=== PATIENT | female | born 1975 | race African-American/Black ===

== ENCOUNTER 2023-02-20 14:04 | Emergency (ER) | payer OTHER, SELFPAY ==
--- NOTE | ~2023-02-20 | XR_ITS ---
EXAMINATION: Right foot and chest x-ray CLINICAL INFORMATION: Right foot pain. Wheezing. COMPARISON: None. TECHNIQUE: 3 views of the right foot. One view of the chest. FINDINGS: Right foot: There are postoperative changes following amputation of the first second and third toes. There is periosteal reaction along the remaining proximal phalanx of the second toe. There is irregularity of the surgical margin of the proximal phalanx of the first and second toes. No fracture or dislocation. Arthritis at the first MTP joint and midfoot. Soft tissue arterial calcification. No abnormal air collection or soft tissue foreign body. Plantar calcaneal spurs. CHEST: The cardiac silhouette is slightly enlarged. Hilar and mediastinal contours are unremarkable. The lungs are clear. No pleural effusion or pneumothorax. Degenerative changes of the spine. XR/XR chest 1V IMPRESSION: Right foot: Postsurgical changes to the first second and third toes. Periosteal reaction of the proximal phalanx of the second toe. Indistinct surgical margins of the proximal phalanx of the first and second toes. It is difficult to exclude osteomyelitis. CHEST: Slightly enlarged cardiac silhouette.
--- NOTE | ~2023-02-20 | XR_ITS ---
EXAMINATION: Right foot and chest x-ray CLINICAL INFORMATION: Right foot pain. Wheezing. COMPARISON: None. TECHNIQUE: 3 views of the right foot. One view of the chest. FINDINGS: Right foot: There are postoperative changes following amputation of the first second and third toes. There is periosteal reaction along the remaining proximal phalanx of the second toe. There is irregularity of the surgical margin of the proximal phalanx of the first and second toes. No fracture or dislocation. Arthritis at the first MTP joint and midfoot. Soft tissue arterial calcification. No abnormal air collection or soft tissue foreign body. Plantar calcaneal spurs. CHEST: The cardiac silhouette is slightly enlarged. Hilar and mediastinal contours are unremarkable. The lungs are clear. No pleural effusion or pneumothorax. Degenerative changes of the spine. XR/XR foot RT min 3V IMPRESSION: Right foot: Postsurgical changes to the first second and third toes. Periosteal reaction of the proximal phalanx of the second toe. Indistinct surgical margins of the proximal phalanx of the first and second toes. It is difficult to exclude osteomyelitis. CHEST: Slightly enlarged cardiac silhouette.
[2023-02-20 14:14] VITALS: BP 152/81; PULSE 78; RESP 16; TEMP 37.1; O2SAT 99; BMI 42.4
--- NOTE | 2023-02-20 14:16 | ED_ITS ---
HPI - General Adult General Chief complaint: General Medical Stated complaint: B/L Foot Pain No Injury Time Seen by Provider: 02/20/23 17:37 Related Data Previous Rx's ?Medication ?Instructions ?Recorded oxycodone 5 mg tablet 5 mg PO Q8H PRN pain #7 tabs 02/20/23 Allergies Allergy/AdvReac Type Severity Reaction Status Date / Time ibuprofen [From MOTRIN] Allergy Unknown STOMACH Unverified 07/22/20 19:12 UPSET morphine [MORPHINE] Allergy Unknown ITCHING Unverified 07/22/20 19:12 tramadol [TRAMADOL] Allergy Unknown HIVES, Unverified 07/22/20 19:12 PMF Social History Social History Advance Directives: No Advance Directives Information Provided: No Physical Exam ED Vital Signs: BMI result Body Mass Index 42.4 Course Course Course Narrative: This is an RME: Additional HPI, ROS, PE not included below will be deferred to primary provider. 47-year-old female presents with right foot pain, patient is status post amputation about a year ago at of [facility]. Complaining that he is also having wheezing worse than usual, she does have inhalers at home which do not seem to be helping. Denies fevers, chills, nausea, vomiting, chest pain, shortness of breath. Physical exam saturating 97% on room air, breathing unlabored patient comfortable appearing. Will order x-ray of right lower extremity peer Medications Administered Discontinued Medications Generic Name Dose Route Start Last Admin Trade Name Freq PRN Reason Stop Dose Admin Oxycodone HCl 5 mg 02/20/23 17:50 02/20/23 18:00 Oxycodone Hcl Immed Release 5 Mg Tablet PO 02/20/23 17:51 5 mg ONCE ONE Administration Medical Decision Making Lab Data 02/20/23 15:07 02/20/23 15:07 Labs: Lab Results 02/20/23 Range/Units 15:07 WBC 11.5 H (4.8-10.8) X10*3/uL RBC 3.83 L (4.20-5.50) X10*6/uL Hgb 11.6 L (12.0-16.0) g/dl Hct 35.9 L (37.0-47.0) % MCV 93.7 (80.0-98.0) fL MCH 30.3 (27.0-33.0) pg MCHC 32.3 (31.0-35.0) g/dl RDW 14.1 (11.0-16.0) % Plt Count 404 H (160-400) X10*3/uL MPV 9.6 (9.4-12.3) fL Immature Gran % (Auto) 0.5 H (0.0-0.4) % Neut % (Auto) 88.3 H (45-73) % Lymph % (Auto) 9.0 L (20-40) % Becker % (Auto) 1.9 L (2-11) % Eos % (Auto) 0.1 (0-4) % Baso % (Auto) 0.2 (0-2) % Lymph # (Auto) 1.0 L (1.2-4.9) X10*3/uL Becker # (Auto) 0.2 (0.1-1.2) X10*3/uL Eos # (Auto) 0.0 (0.0-0.4) X10*3/uL Baso # (Auto) 0.0 (0.0-0.2) X10*3/uL Abs Immat Gran (auto) 0.06 H (0.00-0.03) X10*3/uL Absolute Neuts (auto) 10.2 H (2.0-8.3) x10*3/uL Absolute Nucleated RBC 0.000 (0.0-0.012) X10*3/uL Nucleated RBC % (auto) 0.0 (0.0-0.2) /100WBC Sodium 139 (135-145) mmol/L Potassium 4.5 (3.3-5.1) mmol/L Chloride 106 (96-108) mmol/L Carbon Dioxide 28 (22-29) mmol/L Anion Gap 10 L (12-20) BUN 33 H (9-16) mg/dL Creatinine 1.49 H (0.5-1.4) mg/dL Estim Creat Clear Calc 64.8 Estimated GFR 38 Random Glucose 302 H (60-115) mg/dL Calcium 8.2 L (8.4-10.2) mg/dL Total Bilirubin 0.3 (0.0-1.0) mg/dL AST 35 H (5-31) U/L ALT 46 H (0-31) U/L Alkaline Phosphatase 83 (39-117) U/L Total Protein 6.1 L (6.5-8.0) g/dL Albumin 2.8 L (3.5-5.0) g/dL Discharge Plan Discharge Clinical Impression: Neuropathy Patient Disposition: Home, Self-Care Instructions: Peripheral Neuropathy (ED) Prescriptions: New oxycodone 5 mg tablet 5 mg PO Q8H PRN (Reason: pain) Qty: 7 0RF Rx Instructions: Partial Fill upon patient request. Referrals: Physician,Unknown J [Primary Care Provider] - (Please follow-up with your doctor at [facility].) Interventions: ED Discharge Assessment Last Done: 02/20/23 19:52 Discharge Date/Time: 02/20/23 20:25 Print Language: Marshallese
--- OUTSIDE RECORDS SUMMARY | 2023-02-20 15:10 | XMS_ITS | Continuity of Care Document ---
Author Name Unknown Organization [facility] Address [address] [place] [address]- Care Team Providers Care Appeals Analyst Name Role Phone Sangeetha MOSHER, Marcia Koroma Primary Care Physician [place] [facility] [place] 07/18/[address] [address]- [facility] Attending Physician: Not on Staff, Attending MD Allergies, Adverse Reactions, Alerts Substance Reaction Severity Status ibuprofen ABD PAIN Active morphine Vomiting and itchy Active traMADol Itchy, Hives Active Immunizations Given and Recorded Vaccine Date Status Refusal Reason tetanus-diphtheria toxoids (Td) 09/03/19 Given influenza virus vaccine, inactivated 1 08/15/11 Gi jean-paul influenza virus vaccine, inactivated 2 10/21/09 Gi jean-paul influenza virus vaccine, inactivated 09/16/08 Give n Tet/Diphth/Acel, Pertussis (oldterm) 3 10/14/08 Gi jean-paul Pneumococcal Vaccine (oldterm) 09/16/08 Given Not Given Vaccine Date Status Refusal Reason pneumococcal 23-valent vaccine 05/31/19 Not Given Patient Refuses 1Admin Note: VIS GIVEN-DATED 05/30/11 2Result Comment: LOT [id number] EXP 04 MAY 2010 3Admin Note: VIS given Medications albuterol 90 mcg/inh inhalation powder 2 puffs, Inhalation, Every 6 hours, PRN as needed, # 1 each, 3 Refills, Maintenance, 09/05/19 10:48:00 EDT, Powder, 2 puffs Inhalation Every 6 hours,PRN:as needed Start Date: 09/05/19 Status: Ordered Alcohol Wipes See Instructions, # 1 pack/packet, Refills 5, Tot. Refills 5, Maintenance, Use as directed to checksugars and administer insulin Four times a day. Diagnosis code E11.9, 03/01/20 10:42:00 EDT, Compound, 170, cm, 12/16/19 10:11:00 EST, Height, 100.5, k... Start Date: 03/01/20 Status: Ordered amLODIPine 10 mg oral tablet 10 mg, 1, tablet, By Mouth, Daily, # 90 tablet, Refills 3, Tot. Refills 3, Maintenance, 02/03/20 12:39:00 EDT, Route to Pharmacy Electronically, [facility] #[id number], 170, cm, 12/16/19 10:11:00 EST, Height, 100.5, kg, 05/30/19 9:39:00 EDT, Dry... Start Date: 02/03/20 Stop Date: 01/28/21 Status: Ordered aspirin 81 mg oral delayed release tablet 81 mg, 1, tablet, By Mouth, Daily, # 30 tablet, Refills 11, Tot. Refills 11, Maintenance, 05/20/20 14:45:00 EDT, Route to Pharmacy Electronically, [facility] #[id number], 170, cm, 05/20/20 14:08:00 EDT, Height, 100.5, kg, 05/30/19 9:39:00 EDT, Start Date: 05/20/20 Status: Ordered atorvastatin 10 mg oral tablet 1 tablet = 10 mg, By Mouth, Daily, # 30 tablet, 11 Refills, Maintenance, 05/20/20 14:46:00 EDT, [facility] #[id number], 170, cm, 05/20/20 14:08:00 EDT, Height, 100.5, kg, 05/30/19 9:39:00 EDT, Dry Weight Start Date: 05/20/20 Status: Ordered FREESTYLE LITE BLOOD GLUCSTR 50S See Instructions, # 150 Unknown, Refills 0, Maintenance, USE TO CHECK BLOOD SUGAR FOUR TIMES DAILY AND NEEDED UP TO TOTAL OF FIVE TIMES DAILY, 170, cm, 12/16/19 10:11:00 EST, Height, 100.5, kg, 05/30/19 9:39:00 EDT, Dry Weight Start Date: 12/16/19 Status: Ordered Freestyle Lite Lancets See Instructions, # 150 each, Refills 11, Tot. Refills 11, Maintenance, use to check bs four times daily and prn for uncontrolled DM type II, 03/28/18 13:40:58 EDT, Compound Start Date: 03/28/18 Status: Ordered Freestyle Lite Monitor See Instructions, # 1 each, Maintenance, use to check bs up to five times daily. dx DX E11.65, 12/11/19 10:06:00 EST, Compound, 170, cm, 09/03/19 10:13:00 EDT, Height, 100.5, kg, 05/30/19 9:39:00 EDT, Dry Weight Start Date: 12/11/19 Status: Ordered Freestyle Lite Test Strips See Instructions, # 150 each, Refills 11, Tot. Refills 11, Maintenance, use to check bs four times daily and prn for uncontrolled type 2 dm. e11.65, 5x testing, on insulin, 07/03/20 11:08:00 EDT, Compound, 170, cm, 05/20/20 14:48:00 EDT, Height, 100.... Start Date: 07/03/20 Status: Ordered gabapentin 100 mg oral capsule 100 mg, 1, capsule, By Mouth, 3 times a day, # 90 capsule, Refills 0, Tot. Refills 0, Maintenance, 03/06/19 17:12:53 EDT, Route to Pharmacy Electronically, [id number], [facility] [id number] Start Date: 03/06/19 Status: Ordered Insulin Syringe, BD Ultra-Fine 0.5 cc 31 G x 8 mm (03/20in) See Instructions, # 150 each, Refills 11, Tot. Refills 11, Maintenance, use as directed for Type 2 Diabetes Mellitus to admisiter insulin four times a day. Dx; E11.9, 05/20/20 15:10:00 EDT, pt was transferred to [facility], all meds left beh... Start Date: 05/20/20 Stop Date: 05/15/21 Status: Ordered Lantus 100 u/ml subcutaneous solution = 40 units, Subcutaneous Infusion, 2 times a day, # 15 mL, 11 Refills, Maintenance, 04/28/20 11:50:00 EDT, [facility] #[id number], 170, cm, 04/02/20 13:31:00 EDT, Height, 100.5, kg, 05/30/19 9:39:00 EDT, Dry Weight Start Date: 04/28/20 Stop Date: 04/23/21 Status: Ordered lisinopril 40 mg oral tablet 1 tablet = 40 mg, By Mouth, Daily, # 90 tablet, 4 Refills, Maintenance, 02/03/20 12:39:00 EDT, Tablet, [facility] #[id number], 170, cm, 12/16/19 10:11:00 EST, Height, 100.5, kg, 05/30/19 9:39:00EDT, Dry Weight Start Date: 02/03/20 Stop Date: 04/28/21 Status: Ordered Melatonin 5 mg oral tablet 0 Refills, Maintenance, 01/29/19 10:09:09 EDT Start Date: 01/29/19 Status: Ordered NovoLOG 100 units/mL injectable solution = 20 units, Subcutaneous Infusion, 3 times a day before meals, replaces humalog, # 50 mL, 1 Refills, Maintenance, 02/09/20 16:58:00 EDT, [facility] #[id number], 170, cm, 12/16/19 10:11:00 EST, Height, 100.5, kg, 05/30/19 9:39:00 EDT, Dry Weight Start Date: 02/09/20 Status: Ordered OXcarbazepine 300 mg oral tablet TK 1 T PO BID Start Date: 01/29/19 Status: Ordered PARoxetine 40 mg oral tablet TK 1 T PO HS Start Date: 01/29/19 Status: Ordered Senna 8.6 mg oral tablet 17.2 mg, 2, tablet, By Mouth, Daily, Refills 0, Maintenance, 06/01/19 9:40:46 EDT, Tablet Start Date: 06/01/19 Status: Ordered traZODone 300 mg oral tablet TK 1 T PO HS Start Date: 01/29/19 Status: Ordered triamcinolone 0.1% topical ointment 1 application, Topically, 2 times a day, apply a thin film to affected area, # 60 Gm, 0 Refills, Maintenance, 05/20/20 15:09:00 EDT, Ointment, [facility] #[id number], 1 application Topically 2 times a day,x14 days,Instr:apply a thin film; to aff... Start Date: 05/20/20 Stop Date: 06/03/20 Status: Ordered Trulicity Pen 1.5 mg/0.5 mL subcutaneous solution 0.5 mL = 1.5 mg, Subcutaneous Injection, Every week, # 2.5 mL, 5 Refills, Maintenance, 02/03/20 10:19:00 EDT, Solution, [facility] #[id number], 170, cm, 12/16/19 10:11:00 EST, Height, 100.5, kg,05/30/19 9:39:00 EDT, Dry Weight Start Date: 02/03/20 Status: Ordered Zofran 4 mg oral tablet 1 tablet = 4 mg, By Mouth, Every 8 hours, 0 Refills, Maintenance, 05/30/19 1:22:15 EDT Start Date: 05/30/19 Status: Ordered ZyrTEC 10 mg oral tablet 1 tablet = 10 mg, By Mouth, Daily, # 30 tablet, 0 Refills, Maintenance, 04/17/19 10:42:31 EDT, Tablet Start Date: 04/17/19 Stop Date: 05/17/19 Status: Ordered Problem List Condition Effective Dates Status Health Status Inform ant Abdominal pain(Confirmed) Active Storey's cyst of knee(Confirmed) Active Cholecystectomy(Confirmed) Active Diabetes mellitus(Confirmed) 07/2007 Active Diabetic retinopathy - next due (Confirmed) 2016 Active Dyslipidemia(Confirmed) Active Hypertension(Confirmed) Active Microalbuminuria(Confirmed) Active Morbid obesity(Confirmed) Active Peripheral vascular disease(Confirmed) Active Umbilical hernia(Confirmed) Active 1per 2016 and 2018 [facility] notes Social History Social History Type Response Smoking Status Never (less than 100 in lifetime) entered on: 09/03/19 Sex Female 1per pt
--- OUTSIDE RECORDS SUMMARY | 2023-02-20 15:10 | XMS_ITS | Continuity of Care Document ---
Author Name Unknown Organization [facility] Address [address] [place] [address]- Care Team Providers Care Ammonia Refrigeration Worker Name Role Phone Olivier MOSHER, Allegra Primary Care Physician Encounter [facility] [place] Date(s): 01/11/23 - 02/10/23 [facility] [address] [place] [address]- Allergies, Adverse Reactions, Alerts Substance Reaction Severity Status ibuprofen ABD PAIN Active morphine Vomiting and itchy Active traMADol Itchy, Hives Active Immunizations Given and Recorded Vaccine Date Status Refusal Reason SARS-CoV-2 mRNA ([id number]) vax 02/22/22 Recorded SARS-CoV-2 (COVID-19) mRNA BNT-162b2 vac 08/11/21 Given SARS-CoV-2 (COVID-19) mRNA BNT-162b2 vac 07/20/21 Given tetanus-diphtheria toxoids (Td) 09/03/19 Given influenza virus vaccine, inactivated 1 08/15/11 Gi jean-paul influenza virus vaccine, inactivated 2 10/21/09 Gi jean-paul influenza virus vaccine, inactivated 09/16/08 Give n Tet/Diphth/Acel, Pertussis (oldterm) 3 10/14/08 Gi jean-paul Pneumococcal Vaccine (oldterm) 09/16/08 Given Not Given Vaccine Date Status Refusal Reason pneumococcal 23-valent vaccine 05/31/19 Not Given Patient Refuses 1Admin Note: VIS GIVEN-DATED 05/30/11 2Result Comment: LOT [id number] EXP 04 MAY 2010 3Admin Note: VIS given Medications Alcohol Wipes See Instructions, # 100 each, Refills 5, Tot. Refills 5, Maintenance, dx DM, on insulin, 08/14/22 12:21:00 EDT, Supply, 169, cm, 08/09/22 14:26:00 EDT, Height, 105.22, kg, 08/09/22 14:26:00 EDT, Dry Weight Start Date: 08/14/22 Status: Ordered amLODIPine 10 mg oral tablet 10 mg, 1, tablet, By Mouth, Daily, # 90 tablet, Refills 2, Tot. Refills 2, Maintenance, 01/23/23 10:18:00 EDT, Route to Pharmacy Electronically, [facility]/pharmacy #[id number], Partial fill upon patient request if the prescription is for a schedule II opioid drug... Start Date: 01/23/23 Stop Date: 10/20/23 Status: Ordered aspirin 81 mg oral delayed release tablet 81 mg, By Mouth, Daily, # 30 tablet, Refills 2, Tot. Refills 2, Maintenance, 12/25/22 11:05:00 EST,Route to Pharmacy Electronically, [facility] #[id number], Partial fill upon patient request if the prescription is for a schedule II opioid drug., 169, cm,... Start Date: 12/25/22 Stop Date: 03/25/23 Status: Ordered atorvastatin 40 mg oral tablet 1 tablet = 40 mg, By Mouth, Daily, # 90 tablet, 3 Refills, Maintenance, 01/23/23 10:17:00 EDT, Tablet, [facility]/pharmacy #[id number], Partial fill upon patient request if the prescription is for a schedule II opioid drug., 169, cm, 11/28/22 9:17:00 EST, Height,... Start Date: 01/23/23 Status: Ordered carvedilol 25 mg oral tablet 25 mg, 1, tablet, By Mouth, 2 times a day, # 60 tablet, Refills 2, Tot. Refills 2, Maintenance, 01/22/23 16:13:00 EDT, Route to Pharmacy Electronically, [facility] #[id number], Partial fill upon patient request if the prescription is for a schedule II opi... Start Date: 01/22/23 Stop Date: 04/22/23 Status: Ordered D/armando Rx D/armando Rx, See Instructions, # 1 capsule, Refills 0, Tot. Refills 0, Maintenance, Januvia has been discontinued, 09/01/22 10:09:00 EDT, Supply, 169, cm, 08/09/22 14:26:00 EDT, Height, 105.22, kg, 08/09/22 14:26:00 EDT, Dry Weight Start Date: 09/01/22 Status: Ordered Freestyle Lite Test Strips See Instructions, # 120 each, Refills 5, Tot. Refills 5, Maintenance, USE TO TEST 4 TIMES DAILY on insulin QID, DX DM ICD E11.9, 01/23/23 10:19:00 EDT, Supply, 169, cm, 11/28/22 9:17:00 EST, Height, 103.42, kg, 10/09/22 8:39:00 EST, Dry Weight Start Date: 01/23/23 Stop Date: 07/22/23 Status: Ordered furosemide 20 mg oral tablet 20 mg, 1, tablet, By Mouth, Daily, # 30 tablet, Refills 5, Tot. Refills 5, Maintenance, 10/16/22 10:25:00 EST, Route to Pharmacy Electronically, [facility] #[id number], Partial fill upon patientrequest if the prescription is for a schedule II op... Start Date: 10/16/22 Status: Ordered Lantus Solostar Pen 100 units/mL subcutaneous solution See Instructions, Subcutaneous Injection, 30 units sc bid dx E11.9 dose increased 01/23/23, # 15 mL,11 Refills, Maintenance, 01/23/23 9:43:00 EDT, [facility]/pharmacy #[id number], Partial fill upon patient request if the prescription is for a schedule II opioid d... Start Date: 01/23/23 Stop Date: 01/18/24 Status: Ordered lisinopril 10 mg oral tablet 10 mg, 1, tablet, By Mouth, Daily, # 90 tablet, Refills 2, Tot. Refills 2, Maintenance, 01/23/23 10:15:00 EDT, Route to Pharmacy Electronically, [facility]/pharmacy #[id number], Partial fill upon patient request if the prescription is for a schedule II opioid drug... Start Date: 01/23/23 Stop Date: 10/20/23 Status: Ordered NovoLOG FlexPen 100 units/mL injectable solution INJECT 20 UNITS SUBCUTANEOUSLY 3 TIMES A DAY BEFORE MEALS Start Date: 01/23/23 Status: Ordered oxyCODONE 10 mg oral tablet 1 tablet = 10 mg, By Mouth, Every 12 hours, # 30 tablet, 0 Refills, Maintenance, 01/29/23 16:57:00 EDT, [facility]/pharmacy #[id number], Partial fill upon patient request if the prescription is for a schedule II opioid drug., 169, cm, 01/23/23 13:31:00 EDT, Height... Start Date: 01/29/23 Status: Ordered PARoxetine 40 mg oral tablet 40 mg, 1, tablet, By Mouth, Daily, Refills 0, Maintenance, 01/11/22 9:43:00 EST Start Date: 01/11/22 Status: Ordered Pen Odell, 31 G x 5 mm BD Ultra Fine III See Instructions, # 1 each, Refills 5, Tot. Refills 5, Maintenance, use to inject insulin up to four times daily. dx E11.9, 12/04/22 15:49:00 EST, Supply, 169, cm, 11/28/22 9:17:00 EST, Height, 103.42, kg, 10/09/22 8:39:00 EST, Dry Weight Start Date: 12/04/22 Status: Ordered traZODone 300 mg oral tablet 1 tablet = 300 mg, By Mouth, Daily at bedtime Start Date: 03/03/22 Status: Ordered Trulicity Pen 3 mg/0.5 mL subcutaneous solution 0.5 mL = 3 mg, Subcutaneous Injection, Every week, rotate injection sites, # 2 mL, 11 Refills, Maintenance, 01/23/23 9:42:00 EDT, Solution, [id number], Partial fill upon patient request if the prescription is for a schedule II opioid drug., 16... Start Date: 01/23/23 Status: Ordered Ventolin HFA 108 mcg/inh inhalation aerosol with adapter 1 puffs, Inhalation, Every 4 hours, PRN NEEDED FOR WHEEZING, # 18 each, 2 Refills, Maintenance, 01/23/23 10:16:00 EDT, [id number], 169, cm, 11/28/22 9:17:00 EST, Height, 103.42, kg, 10/09/22 8:39:00 EST, Dry Weight Start Date: 01/23/23 Status: Ordered Problem List Condition Confirmation Course Effective Dates Status H ealth Status Informant Abdominal pain Confirmed Active Amputation of toe Confirmed Active Storey's cyst of knee Confirmed Active Cholecystectomy Confirmed Active Diabetes mellitus Confirmed 07/2007 Active Diabetic peripheral neuropathy Confirmed Active Diabetic retinopathy - next due 1 Confirmed 2017 Active Reading difficulty Confirmed Active Dyslipidemia Confirmed Active HFpEF - pulm edema on CXR, ECHO diastolic dysfunction 2021 Confirmed Active Hypertension Confirmed Active Microalbuminuria Confirmed Active Morbid obesity Confirmed Active BHN/CCA/CP- [facility] [id number] skilled nursing active care coordination Confirmed Active Peripheral vascular disease - right SFA angioplasty/right great toe amputation 2021 Confirmed Active Severe obesity Confirmed Active Umbilical hernia Confirmed Active 1per 2016 and 2018 [facility] notes Social History Social History Type Response Smoking Status Never (less than 100 in lifetime) entered on: 09/03/19 Sex 1per pt Patient Care team information Care Team Personnel Name: Allegra Aguayo MD Position: [facility] Resident Member Role: PCP Address: Address: [address] [place] [address] Name: Baljit Martínez RN Position: S RN Member Role: Primary Care Nurse Name: Sabine Guthrie RN Position: S RN Member Role: Primary Care Nurse Name: Aditi Hernandez RN Position: S RN Member Role: Primary Care Nurse Name: Piyush Moore RN Position: [facility] RN Member Role: Primary Care Nurse Name: Mis Vences RN Position: S RN Member Role: Primary Care Nurse Name: Angie Lopez RN Position: S RN Member Role: Primary Care Nurse Name: Lizzie Estrada RN Position: [facility] Onco RN Member Role: Primary Care Nurse Care Team Related Persons Name: MIKEY SEAY Address: home [address] [address] Name: MIKEY AYALA Address: home [address] [place] [address] Name: TANIA COPPOLA Address: home [address] [place] [address] Name: ATNIA MUÑIZ Address: home [address] [place] [id number]
--- OUTSIDE RECORDS SUMMARY | 2023-02-20 15:10 | XMS_ITS | Continuity of Care Document ---
Author Name Unknown Organization [facility] Address [address] [place] [address]- Care Team Providers Care Mainspring Reverse Winder Name Role Phone Olivier MOSHER, Allegra Primary Care Physician Encounter [facility] [place] Date(s): 10/09/22 - 11/08/22 [facility] [address], [place] [address] Allergies, Adverse Reactions, Alerts Substance Reaction Severity Status ibuprofen ABD PAIN Active morphine Vomiting and itchy Active traMADol Itchy, Hives Active Immunizations Given and Recorded Vaccine Date Status Refusal Reason SARS-CoV-2 mRNA ([id number]) vax 02/22/22 Recorded SARS-CoV-2 (COVID-19) mRNA BNT-162b2 [...] Note: VIS GIVEN-DATED 05/30/11 2Result Comment: LOT [id number] EXP 04 MAY 2010 3Admin Note: VIS given Medications 1/4 inch palin nugauze 1/4 inch palin nugauze, See Instructions, # 1 each, Refills 1, Tot. Refills 1, Maintenance, use 2ndtoe wound as directed, 09/20/22 13:03:00 EST, Supply Start Date: 09/20/22 Status: Ordered 4 x 4 sterile gauze 4 x 4 sterile gauze, See Instructions, # 1 Unknown, Refills 0, Tot. Refills 0, Maintenance, please dispense 1 box of 4x4 sterile gauze for right toe infection ICD 10 L03.039, length of use 2 months, 07/19/22 12:40:00 EDT, Supply Start Date: 07/19/22 Status: Ordered Aerochamber 1 units, Inhalation, 4 times a day, PRN, # 1 each, Refills 0, Tot. Refills 0, Maintenance, Wheezing/Shortness of Breath, use with inhaler; DX: Asthma; J45.909, 09/21/22 17:49:00 EST, Supply, 169, cm,09/20/22 9:22:00 EST, Height, 103.42, kg, 09/20/22... Start Date: 09/21/22 Status: Ordered Alcohol Wipes See Instructions, # 100 each, Refills 5, Tot. Refills 5, Maintenance, dx DM, on insulin, 08/14/22 12:21:00 EDT, Supply, 169, cm, 08/09/22 14:26:00 EDT, Height, 105.22, kg, 08/09/22 14:26:00 EDT, Dry Weight Start Date: 08/14/22 Status: Ordered amLODIPine 10 mg oral tablet 10 mg, 1, tablet, By Mouth, Daily, # 30 tablet, Refills 5, Tot. Refills 5, Maintenance, 04/24/22 9:05:00 EDT, Route to Pharmacy Electronically, [facility], Partial fill upon patient request if the prescription is for a schedule II opio... Start Date: 04/24/22 Status: Ordered ammonium lactate 5% topical lotion 1 application, Topically, 2 times a day, # 240 Gm, 0 Refills, Maintenance, 05/01/22 12:34:00 EDT, Lotion, [facility]/pharmacy #[id number], Partial fill upon patient request if the prescription is for a schedule II opioid drug., 1 application Topically 2 times a da... Start Date: 05/01/22 Stop Date: 05/31/22 Status: Ordered aspirin 81 mg oral delayed release tablet 81 mg, By Mouth, Daily, for 30 days, # 30 tablet, Refills 5, Tot. Refills 5, Hard Stop 11/09/22 16:40:00 EST, 05/13/22 16:40:00 EDT, Route to Pharmacy Electronically, [facility], Partial fill upon patient request if the prescription is... Start Date: 05/13/22 Stop Date: 11/09/22 Status: Ordered aspirin 81 mg oral delayed release tablet 81 mg, By Mouth, Daily, # 30 tablet, Refills 0, Tot. Refills 0, Maintenance, 11/09/22 16:40:00 EST,Route to Pharmacy Electronically, [facility]/pharmacy #[id number], Partial fill upon patient request if the prescription is for a schedule II opioid drug., 169, cm,... Start Date: 11/09/22 Stop Date: 12/09/22 Status: Ordered atorvastatin 40 mg oral tablet 1 tablet = 40 mg, By Mouth, Daily, # 90 tablet, 2 Refills, Maintenance, 04/24/22 9:41:00 EDT, Tablet, [facility], Partial fill upon patient request if the prescription is for a schedule II opioid drug., 170, cm, 04/24/22 8:36:00 EDT, H... Start Date: 04/24/22 Status: Ordered Blood Pressure Monitor See Instructions, # 1 each, Maintenance, DX HTN, ICD E11.9, 01/11/22 9:28:00 EST, Supply Start Date: 01/11/22 Status: Ordered carvedilol 25 mg oral tablet 25 mg, 1, tablet, By Mouth, 2 times a day, for 30 days, # 60 tablet, Refills 5, Tot. Refills 5, Hard Stop 01/22/23 16:13:00 EDT, 07/26/22 16:13:00 EDT, Route to Pharmacy Electronically, [facility]/pharmacy #[id number], Partial fill upon patient request if the pres... Start Date: 07/26/22 Stop Date: 01/22/23 Status: Ordered carvedilol 25 mg oral tablet 25 mg, 1, tablet, By Mouth, 2 times a day, # 60 tablet, Refills 2, Tot. Refills 2, Maintenance, 01/22/23 16:13:00 EDT, Route to Pharmacy Electronically, [facility]/pharmacy #[id number], Partial fill upon patient request if the prescription is for a schedule II opi... Start Date: 01/22/23 Stop Date: 04/22/23 Status: Ordered Colace sodium 100 mg oral capsule 100 mg, 1, capsule, By Mouth, 2 times a day, PRN, # 60 capsule, Refills 0, Tot. Refills 0, Maintenance, for constipation, 03/16/22 14:30:00 EDT, Route to Pharmacy Electronically, [facility], Partial fill upon patient request if the pre... Start Date: 03/16/22 Status: Ordered D/armando Rx D/armando Rx, See Instructions, # 1 capsule, Refills 0, Tot. Refills 0, Maintenance, Januvia has been discontinued, 09/01/22 10:09:00 EDT, Supply, 169, cm, 08/09/22 14:26:00 EDT, Height, 105.22, kg, 08/09/22 14:26:00 EDT, Dry Weight Start Date: 09/01/22 Status: Ordered Darco front offloading shoe Darco front offloading shoe, See Instructions, # 1 each, Refills 0, Tot. Refills 0, Maintenance, dx: dfu, 03/14/22 10:48:00 EDT, Compound Start Date: 03/14/22 Status: Ordered Eliquis 5 mg oral tablet 2 tablet = 10 mg, By Mouth, 2 times a day, # 20 tablet, 0 Refills, Maintenance, 09/21/22 11:57:00 EST, Tablet, [facility]/pharmacy #[id number], Partial fill upon patient request if the prescription is for a schedule II opioid drug., 169, cm, 09/20/22 9:22:00 EST,... Start Date: 09/21/22 Stop Date: 09/26/22 Status: Ordered Freestyle Lite Test Strips See Instructions, # 100 each, Refills 3, Tot. Refills 3, Maintenance, USE TO TEST 4 TIMES DAILY, 10/23/22 14:04:00 EST, Supply, 169, cm, 10/09/22 8:39:00 EST, Height, 103.42, kg, 10/09/22 8:39:00 EST, Dry Weight Start Date: 10/23/22 Stop Date: 02/20/23 Status: Ordered furosemide 20 mg oral tablet 20 mg, 1, tablet, By Mouth, Daily, # 30 tablet, Refills 5, Tot. Refills 5, Maintenance, 10/16/22 10:25:00 EST, Route to Pharmacy Electronically, [facility] #[id number], Partial fill upon patientrequest if the prescription is for a schedule II op... Start Date: 10/16/22 Status: Ordered Insulin Syringe, BD Ultra-Fine 0.5 cc 31 G x 8 mm (516in) See Instructions, # 100 each, Refills 3, Tot. Refills 3, Maintenance, use as directed for Type 2 Diabetes Mellitus to admisiter insulin two times a day. Dx; E11.9, 10/03/22 8:13:00 EST, Compound, 169, cm, 09/20/22 9:22:00 EST, Height, 103.42, kg, 1... Start Date: 10/03/22 Stop Date: 01/31/23 Status: Ordered Lantus Solostar Pen 100 units/mL subcutaneous solution = 30 units, Subcutaneous Injection, 2 times a day, # 15 mL, 1 Refills, Soft Stop, 10/16/22 8:19:00 EST, Solution, [facility]/pharmacy #[id number], Partial fill upon patient request if the prescription is for a schedule II opioid drug., 169, cm, 10/09/22 8:39:00 ES... Start Date: 10/16/22 Stop Date: 04/14/23 Status: Ordered Lasix 20 mg oral tablet 1, capsule, By Mouth, Once, take one pill daily for 3 days, # 3 tablet, Refills 0, Tot. Refills 0, Soft Stop, 09/20/22 11:19:00 EST, Route to Pharmacy Electronically, [facility]/pharmacy #[id number], Partial fillupon patient request if the prescription is for a s... Start Date: 09/20/22 Status: Ordered levoFLOXacin 250 mg oral tablet 1 tablet = 250 mg, By Mouth, Every 24 hours, # 14 tablet, 0 Refills, Maintenance, 09/20/22 11:28:00EST, Tablet, [facility]pharmacy #[id number], Partial fill upon patient request if the prescription is for a schedule II opioid drug., 169, cm, 09/20/22 9:22:00 EST... Start Date: 09/20/22 Stop Date: 10/04/22 Status: Ordered lisinopril 10 mg oral tablet 10 mg, 1, tablet, By Mouth, Daily, # 90 tablet, Refills 1, Tot. Refills 1, Maintenance, 10/16/22 10:24:00 EST, Route to Pharmacy Electronically, [facility] #[id number], Partial fill upon patientrequest if the prescription is for a schedule II op... Start Date: 10/16/22 Stop Date: 04/14/23 Status: Ordered NovoLOG FlexPen 100 units/mL injectable solution = 20 units, Subcutaneous Injection, 3 times a day before meals, INJECT 20 UNITS INTO SKIN THREE TIMES DAILY BEFORE A MEAL, # 15 mL, 10 Refills, Maintenance, 08/01/22 16:09:00 EDT, [facility] 169, cm, 08/01/22 14:14:00 EDT, Height, 104... Start Date: 08/01/22 Stop Date: 04/17/25 Status: Ordered Offloading boot Offloading boot, See Instructions, # 1 each, Refills 0, Tot. Refills 0, Maintenance, Please fit patient Diagnosis: Diabetic foot infection ICD code E11. 621, 07/21/22 8:08:00 EDT, Supply Start Date: 07/21/22 Status: Ordered oxyCODONE 10 mg oral tablet 1 tablet = 10 mg, By Mouth, Every 12 hours, for 14 days, # 28 tablet, 0 Refills, Acute 11/15/22 10:46:00 EST, 11/01/22 10:46:00 EST, [facility]/pharmacy #[id number], Partial fill upon patient request if the prescription is for a schedule II opioid drug., 169, cm,... Start Date: 11/01/22 Stop Date: 11/15/22 Status: Ordered PARoxetine 40 mg oral tablet 40 mg, 1, tablet, By Mouth, Daily, Refills 0, Maintenance, 01/11/22 9:43:00 EST Start Date: 01/11/22 Status: Ordered Plavix 75 mg oral tablet 75 mg, 1, tablet, By Mouth, Daily, # 30 tablet, Refills 5, Tot. Refills 5, Maintenance, 04/24/22 9:03:00 EDT, Route to Pharmacy Electronically, [facility], Partial fill upon patient request if the prescription is for a schedule II opio... Start Date: 04/24/22 Status: Ordered Santyl 250 u/gm ointment 1 application, Topically, Daily, uase as directed to right great and second toes, # 15 Gm, 1 Refills, Maintenance, 09/20/22 13:06:00 EST, Ointment, Partial fill upon patient request if the prescription is for a schedule II opioid drug. Start Date: 09/20/22 Status: Ordered traZODone 300 mg oral tablet 1 tablet = 300 mg, By Mouth, Daily at bedtime Start Date: 03/03/22 Status: Ordered Trulicity Pen 1.5 mg/0.5 mL subcutaneous solution 0.5 mL = 1.5 mg, Subcutaneous Injection, Every week, # 2.5 mL, 2 Refills, Maintenance, 10/16/22 13:14:00 EST, Solution, [facility]/pharmacy #[id number], Partial fill upon patient request if the prescription is for a schedule II opioid drug., 169, cm, 10/09/22 8:39... Start Date: 10/16/22 Status: Ordered Ventolin HFA 108 mcg/inh inhalation aerosol with adapter 1 puffs, Inhalation, Every 4 hours, PRN NEEDED FOR WHEEZING, # 18 Gm, 0 Refills, Maintenance, 11/02/22 8:15:00 EST, [facility] #[id number], 169, cm, 11/01/22 11:21:00 EST, Height, 103.42, kg,10/09/22 8:39:00 EST, Dry Weight Start Date: 11/02/22 Status: Ordered wedge pillow wedge pillow, See Instructions, # 1 each, Refills 0, Tot. Refills 0, Maintenance, use to elevate right leg to control swelling, 09/20/22 11:26:00 EST, Supply Start Date: 09/20/22 Status: Ordered Wheel chair W/ Elevating foot rest Wheel chair W/ Elevating foot rest, See Instructions, # 1 each, Refills 0, Tot. Refills 0, Maintenance, Length of need: 1 year Wt:103.42 kg Ht: 169, 09/21/22 9:58:00 EST, Supply Start Date: 09/21/22 Status: Ordered Wheelchair See Instructions, # 1 each, Maintenance, please suppy wheel chair to patient to get around and keepweight off leg, 09/07/22 9:16:00 EDT, Supply, 169, cm, 08/09/22 14:26:00 EDT, Height, 105.22, kg, 08/09/22 14:26:00 EDT, Dry Weight Start Date: 09/07/22 Status: Ordered Problem List Condition Confirmation Course Effective Dates Status H ealth Status Informant Abdominal pain Confirmed Active Amputation of toe Confirmed Active Storey's cyst of knee Confirmed Active Cholecystectomy Confirmed Active Diabetes mellitus Confirmed 07/2007 Active Diabetic peripheral neuropathy Confirmed Active Diabetic retinopathy - next due -2019 1 Confirmed 2016 Active Reading difficulty Confirmed Active Dyslipidemia Confirmed Active HFpEF - pulm edema on CXR, ECHO diastolic dysfunction 2021 Confirmed Active Hypertension Confirmed Active Microalbuminuria Confirmed Active Morbid obesity Confirmed Active BHN/CCA/CP- [facility] [id number] senior living active care coordination Confirmed Active Peripheral vascular disease - right SFA angioplasty/right great toe amputation 2021 Confirmed Active Severe obesity (BMI 35.0-39.9) with comorbidity Confirmed Active Umbilical hernia Confirmed Active 1per 2016 and [address] [place] notes Social History Social History Type Response Smoking Status Never (less than 100 in lifetime) entered on: 09/03/19 Sex 1per pt Patient Care team information Care Team Personnel Name: Allegra Aguayo MD Position: [facility] Resident Member Role: PCP Address: Address: [address] [place] [address] Name: Vera Locke RN Position: S RN Member Role: Primary Care Nurse Name: Baljit Martínez RN Position: S RN Member Role: Primary Care Nurse Name: Sabine Guthrie RN Position: S RN Member Role: Primary Care Nurse Name: Aditi Hernandez RN Position: S RN Member Role: Primary Care Nurse Name: Piyush Moore RN Position: S RN Member Role: Primary Care Nurse Name: Mis Vences RN Position: S RN Member Role: Primary Care Nurse Name: Angie Lopez RN Position: S RN Member Role: Primary Care Nurse Name: Lizzie Estrada RN Position: Maria Luz RN Member Role: Primary Care Nurse Care Team Related Persons Name: MIKEY SEAY Address: home [address] [address] Name: MIKEY AYALA Address: [address] [place] [address] Name: TANIA COPPOLA Address: home [address] [place] [id number] Name: TANIA MUÑIZ Address: home [address] [place] [id number]
--- OUTSIDE RECORDS SUMMARY | 2023-02-20 15:10 | XMS_ITS | Continuity of Care Document ---
Author Name Unknown Organization [facility] Address [address] [place] [address]- Care Team Providers Care Size Mixer Name Role Phone Olivier MOHSER, Allegra Primary Care Physician [phone] Encounter [facility] [place] Date(s): 10/16/22 - 01/14/23 [facility] [address] [place] [address]- Attending Physician: Aditi Gay MD Admitting Physician: Victor Hugo MOSHER, Aditi Kilgore Allergies, Adverse Reactions, Alerts Substance Reaction Severity Status ibuprofen ABD PAIN Active morphine Vomiting and itchy Active traMADol Itchy, Hives Active Immunizations Given and Recorded Vaccine Date Status Refusal Reason SARS-CoV-2 mRNA ([id number]) vax 02/22/22 Recorded SARS-CoV-2 (COVID-19) mRNA BNT-162b2 [...] Note: VIS GIVEN-DATED 05/30/11 2Result Comment: LOT [id number] EXP 04 MAY 2010 3Admin Note: VIS [...] 04/24/22 9:05:00 EDT, [facility] upon patient request if the prescription is for a schedule II opio... Start Date: 04/24/22 Status: Ordered ammonium lactate 5% topical lotion 1 application, Topically, 2 times a day, # 240 Gm, 0 Refills, Maintenance, 05/01/22 12:34:00 EDT, Lotion, [facility]/pharmacy #[id number], Partial fill upon patient request if the prescription is for a schedule II opioid drug., 1 application Topically 2 times a da... Start Date: 05/01/22 Stop Date: 05/31/22 Status: Ordered aspirin 81 mg oral delayed release tablet 81 mg, By Mouth, Daily, # 30 tablet, Refills 2, Tot. Refills 2, Maintenance, 12/25/22 11:05:00 EST,Route to Pharmacy Electronically, [facility]/pharmacy #[id number], Partial fill upon patient request if the prescription is for a schedule II opioid drug., 169, cm,... Start Date: 12/25/22 Stop Date: 03/25/23 Status: Ordered atorvastatin 40 mg oral tablet 1 tablet = 40 mg, By Mouth, Daily, # 90 tablet, 2 Refills, Maintenance, 04/24/22 9:41:00 EDT, Tablet, [facility], Partial fill upon patient request if [...] 07/26/22 16:13:00 EDT, Route to Pharmacy Electronically, [facility]/pharmacy #[id number], Partial fill upon patient request if the pres... Start Date: 07/26/22 Stop Date: 01/22/23 Status: Ordered carvedilol 25 mg oral tablet 25 mg, 1, tablet, By Mouth, 2 times a day, # 60 tablet, Refills 2, Tot. Refills 2, Maintenance, 01/22/23 16:13:00 EDT, Route to Pharmacy Electronically, [facility]/pharmacy #[id number], Partial fill upon patient request if the prescription is for a schedule II opi... Start Date: 3/20/23 Stop Date: 04/22/23 Status: Ordered Colace sodium 100 mg oral capsule 100 mg, 1, capsule, By Mouth, 2 times a day, PRN, # 60 capsule, Refills 0, Tot. Refills 0, Maintenance, for constipation, 03/16/22 14:30:00 EDT, Route to Pharmacy Electronically, [facility], Partial fill upon patient request if [...] 0 Refills, Maintenance, 09/21/22 11:57:00 EST, Tablet, [facility]/pharmacy #[id number], Partial fill upon patient [...] 10/16/22 10:25:00 EST, Route to Pharmacy Electronically, [facility] #[id number], Partial fill upon patientrequest if the prescription is for a schedule II op... Start Date: 10/16/22 Status: Ordered insulin aspart 100 units/mL subcutaneous solution = 20 units, Subcutaneous Injection, 3 times a day before meals, 0 Refills, Maintenance, 12/04/22 9:55:00 EST, Solution, Partial fill upon patient request if the prescription is for a schedule II opioid drug. Start Date: 12/04/22 Status: Ordered insulin glargine 100 units/mL subcutaneous solution = 30 units, Subcutaneous Injection, 2 times a day, 0 Refills, Maintenance, 12/04/22 9:56:00 EST, Solution, Partial fill upon patient request if the prescription is for a schedule II opioid drug. Start Date: 12/04/22 Status: Ordered Insulin Syringe, BD Ultra-Fine 0.5 cc 31 G x 8 mm (5/16in) See Instructions, # 100 each, Refills 3, Tot. Refills 3, Maintenance, use as directed for Type 2 Diabetes Mellitus to admisiter insulin two times a day. Dx; E11.9, 10/03/22 8:13:00 EST, Compound, 169, cm, 09/20/22 9:22:00 EST, Height, 103.42, kg, 1... Start Date: 10/03/22 Stop Date: 01/31/23 Status: Ordered Lantus Solostar Pen 100 units/mL subcutaneous solution See Instructions, Subcutaneous Injection, 25 units sc bid dx E11.9, # 3 each, 0 Refills, Maintenance, 01/03/23 15:48:00 EST, [facility]/pharmacy #[id number], Partial fill upon patient request if the prescription is for a schedule II opioid drug., 169, cm, 11/28/22... Start Date: 01/03/23 Stop Date: 02/02/23 Status: Ordered Lasix 20 mg oral tablet 1, capsule, By Mouth, Once, take one pill daily for 3 days, # 3 tablet, Refills 0, Tot. Refills 0, Soft Stop, 09/20/22 11:19:00 EST, Route to Pharmacy Electronically, [facility]/pharmacy #[id number], Partial fillupon patient request if the prescription is for a s... Start Date: 09/20/22 Status: Ordered levoFLOXacin 250 mg oral tablet 1 tablet = 250 mg, By Mouth, Every 24 hours, # 14 tablet, 0 Refills, Maintenance, 09/20/22 11:28:00EST, Tablet, [facility]/pharmacy #[id number], Partial fill upon patient request if the prescription is for a schedule II opioid drug., 169, cm, 09/20/22 9:22:00 EST... Start Date: 09/20/22 Stop Date: 10/04/22 Status: Ordered lisinopril 10 mg oral tablet 10 mg, 1, tablet, By Mouth, Daily, # 90 tablet, Refills 0, Tot. Refills 0, Maintenance, 11/30/22 8:10:00 EST, Route to Pharmacy Electronically, [facility]/pharmacy #[id number], Partial fill upon patient request if the prescription is for a schedule II opioid drug.... Start Date: 11/30/22 Stop Date: 02/28/23 Status: Ordered Offloading boot Offloading boot, See Instructions, # 1 each, Refills 0, Tot. Refills 0, Maintenance, Please fit patient Diagnosis: Diabetic foot infection ICD code E11. 621, 07/21/22 8:08:00 EDT, Supply Start Date: 07/21/22 Status: Ordered oxyCODONE 10 mg oral tablet 1 tablet = 10 mg, By Mouth, Every 12 hours, MASS PAT REVIEWED NO driving, # 24 tablet, 0 Refills, Maintenance, 11/28/22 13:29:00 EST, [facility]/pharmacy #[id number], Partial fill upon patient request if the prescription is for a schedule II opioid drug., 169,... Start Date: 11/28/22 Status: Ordered oxyCODONE 10 mg oral tablet 1 tablet = 10 mg, By Mouth, Every 12 hours, PRN Pain , Moderate, # 30 tablet, 0 Refills, Maintenance, 01/12/23 13:41:00 EST, [facility]/pharmacy #[id number], Partial fill upon patient request if the prescription is for a schedule II opioid drug., 169, cm, 11/28/22... Start Date: 01/12/23 Status: Ordered PARoxetine 40 mg oral tablet 40 mg, 1, tablet, By Mouth, Daily, Refills 0, Maintenance, 01/11/22 9:43:00 EST Start Date: 01/11/22 Status: Ordered Pen [place], 31 G x 5 mm BD Ultra Fine III See Instructions, # 1 each, Refills 5, Tot. Refills 5, Maintenance, use to inject insulin up to four times daily. dx E11.9, 12/04/22 15:49:00 EST, Supply, 169, cm, 11/28/22 9:17:00 EST, Height, 103.42, kg, 10/09/22 8:39:00 EST, Dry Weight Start Date: 12/04/22 Status: Ordered Plavix 75 mg oral tablet 75 mg, 1, tablet, By Mouth, Daily, # 30 tablet, Refills 5, Tot. Refills 5, Maintenance, 04/24/22 9:03:00 EDT, Route to Pharmacy Electronically, [facility], Partial fill upon patient request if [...] opioid drug. Start Date: 09/20/22 Status: Ordered Santyl 250 u/gm ointment 1 application, Topically, Daily, # 15 Gm, 0 Refills, Maintenance, 11/22/22 12:11:00 EST, Ointment, [facility]/pharmacy #[id number], Partial fill upon patient request if the prescription is for a schedule II opioid drug., 1 application Topically Daily, 169, cm, ... Start Date: 11/22/22 Status: Ordered traZODone 300 mg oral tablet 1 tablet = 300 mg, By Mouth, Daily at bedtime Start Date: 03/03/22 Status: Ordered Trulicity Pen 1.5 mg/0.5 mL subcutaneous solution 0.5 mL = 1.5 mg, Subcutaneous Injection, Every week, # 2.5 mL, 2 Refills, Maintenance, 10/16/22 13:14:00 EST, Solution, [facility]/pharmacy #[id number], Partial fill upon patient request if the prescription is for a schedule II opioid drug., 169, cm, 10/09/22 8:39... Start Date: 10/16/22 Status: Ordered Ventolin HFA 108 mcg/inh inhalation aerosol with adapter 1 puffs, Inhalation, Every 4 hours, PRN NEEDED FOR WHEEZING, # 18 Gm, 0 Refills, Maintenance, 12/15/22 18:28:00 EST, [facility]pharm[facility] #[id number], 169, cm, 11/28/22 9:17:00 EST, Height, 103.42, kg, 228:39:00 EST, Dry Weight Start Date: 12/15/22 Status: Ordered wedge pillow wedge pillow, See [...] Diabetic retinopathy - next due 1 Confirmed 2016 Active Reading difficulty Confirmed Active Dyslipidemia Confirmed Active HFpEF - pulm edema on CXR, ECHO diastolic dysfunction 2021 Confirmed Active Hypertension Confirmed Active Microalbuminuria Confirmed Active Morbid obesity Confirmed Active BHN/CCA/CP- [facility] [id number] [facility] active care coordination Confirmed Active Peripheral vascular disease - right SFA angioplasty/right great toe amputation 2021 Confirmed Active Severe obesity (BMI 35.0-39.9) with comorbidity Confirmed Active Umbilical hernia Confirmed Active 1per 2017 and 2019 [facility] notes Social History Social History Type Response Smoking Status Never (less than 100 in lifetime) entered on: 09/03/19 Sex 1per pt Patient Care team information Care Team Personnel Name: Allegra Aguayo MD Position: [facility] Resident Member Role: PCP Address: Address: [address] [place] [id number] Name: Vera Locke RN Position: S RN Member Role: Primary Care Nurse Name: Baljit Martínez RN Position: [facility] RN Member Role: Primary Care Nurse Name: Sabine Guthrie RN Position: [facility] RN Member Role: Primary Care Nurse Name: Aditi Hernandez RN Position: S RN Member Role: Primary Care Nurse Name: Piyush Moore RN Position: [facility] RN Member Role: Primary Care Nurse Name: Mis Vences RN Position: [facility] RN Member Role: Primary Care Nurse Name: Angie Lopez RN Position: S RN Member Role: Primary Care Nurse Name: Lizzie Estrada RN Position: [facility] Onco RN Member Role: Primary Care Nurse Care Team Related Persons Name: MIKEY SEAY Address: home [address] [address] Name: MIKEY AYALA Address: home [address] [place] [address] Name: TANIA COPPOLA Address: home [address] [place] [id number] Name: TANIA MUÑIZ Address: home [address] [place] [id number]
--- OUTSIDE RECORDS SUMMARY | 2023-02-20 15:10 | XMS_ITS | Continuity of Care Document ---
Author Name Unknown Organization [facility] Address [address] [place] [address]- Care Team Providers Care Sole Tier Name Role Phone Allegra Aguayo MD Primary Care Physician Encounter [facility] Date(s): 12/08/22 - 01/07/23 [facility] [address] [place] [address]- Allergies, Adverse Reactions, Alerts Substance Reaction Severity Status ibuprofen ABD PAIN Active morphine Vomiting and itchy Active traMADol Itchy, Hives Active Immunizations Given and Recorded Vaccine Date Status Refusal Reason SARS-CoV-2 mRNA (kfbooxq-sths-xzhig) vax 02/22/22 Recorded SARS-CoV-2 (COVID-19) mRNA BNT-162b2 [...] Note: VIS GIVEN-DATED 05/30/11 2Result Comment: LOT [id number] EXP 04 MAY 2010 3Admin Note: VIS [...] 04/24/22 9:05:00 EDT, Route to Pharmacy Electronically, [facility], Partial fill upon patient request if the prescription is for a schedule II opio... Start Date: 04/24/22 Status: Ordered ammonium lactate 5% topical lotion 1 application, Topically, 2 times a day, # 240 Gm, 0 Refills, Maintenance, 05/01/22 12:34:00 EDT, Lotion, [facility]/pharmacy #[id number], Partial fill upon patient request if the prescription is for a schedule II opioid drug., 1 application Topically 2 times a da... Start Date: 05/01/22 Stop Date: 05/31/22 Status: Ordered aspirin 81 mg oral delayed release tablet 81 mg, By Mouth, Daily, # 30 tablet, Refills 2, Tot. Refills 2, Maintenance, 12/25/22 11:05:00 EST,Route to Pharmacy Electronically, [facility]/pharmacy #[id number], Partial fill upon patient request if the prescription is for a schedule II opioid drug., 169, cm,... Start Date: 12/25/22 Stop Date: 03/25/23 Status: Ordered atorvastatin 40 mg oral tablet 1 tablet = 40 mg, By Mouth, Daily, # 90 tablet, 2 Refills, Maintenance, 04/24/22 9:41:00 EDT, Tablet, [facility], Partial fill upon patient request if [...] 07/26/22 16:13:00 EDT, Route to Pharmacy Electronically, [facility]/pharmacy #[id number], Partial fill upon patient request if the pres... Start Date: 07/26/22 Stop Date: 01/22/23 Status: Ordered carvedilol 25 mg oral tablet 25 mg, 1, tablet, By Mouth, 2 times a day, # 60 tablet, Refills 2, Tot. Refills 2, Maintenance, 01/22/23 16:13:00 EDT, Route to Pharmacy Electronically, [facility]/pharmacy #[id number], Partial fill upon patient request if the prescription is for a schedule II opi... Start Date: 01/22/23 Stop Date: 04/22/23 Status: Ordered Colace sodium 100 mg oral capsule 100 mg, 1, capsule, By Mouth, 2 times a day, PRN, # 60 capsule, Refills 0, Tot. Refills 0, Maintenance, for constipation, 03/16/22 14:30:00 EDT, Route to Pharmacy Electronically, [facility], Partial fill upon patient request if the pre... Start Date: 03/16/22 Status: Ordered D/armando Rx D/armando Rx, See Instructions, # 1 capsule, Refills 0, Tot. Refills 0, Maintenance, Ktuvia has been discontinued, 09/01/22 10:09:00 EDT, Supply, [...] 0 Refills, Maintenance, 09/21/22 11:57:00 EST, Tablet, [facility]/pharmacy #[id number], Partial fill upon patient request [...] 10/16/22 10:25:00 EST, Route to Pharmacy Electronically, [facility] #[id number], Partial fill upon patientrequest if the prescription [...] each, 0 Refills, Maintenance, 01/03/23 15:48:00 EST, [facility]/pharmacy #[id number], Partial fill upon patient request if the prescription is for a schedule II opioid drug., 169, cm, 11/28/22... Start Date: 01/03/23 Stop Date: 02/02/23 Status: Ordered Lasix 20 mg oral tablet 1, capsule, By Mouth, Once, take one pill daily for 3 days, # 3 tablet, Refills 0, Tot. Refills 0, Soft Stop, 09/20/22 11:19:00 EST, Route to Pharmacy Electronically, [facility]/pharmacy #[id number], Partial fillupon patient request if the prescription is for a s... Start Date: 09/20/22 Status: Ordered levoFLOXacin 250 mg oral tablet 1 tablet = 250 mg, By Mouth, Every 24 hours, # 14 tablet, 0 Refills, Maintenance, 09/20/22 11:28:00EST, Tablet, [facility]/pharmacy #[id number], Partial fill upon patient request if the prescription is for a schedule II opioid drug., 169, cm, 09/20/22 9:22:00 EST... Start Date: 09/20/22 Stop Date: 10/04/22 Status: Ordered lisinopril 10 mg oral tablet 10 mg, 1, tablet, By Mouth, Daily, # 90 tablet, Refills 0, Tot. Refills 0, Maintenance, 11/30/22 8:10:00 EST, Route to Pharmacy Electronically, [facility]/pharmacy #[id number], Partial fill upon patient request [...] Moderate, # 30 tablet, 0 Refills, Maintenance, 01/01/23 21:26:00 EST, [facility]/pharmacy #[id number], Partial fill upon patient request if the prescription is for a schedule II opioid drug., 169, cm, 11/28/22... Start Date: 01/01/23 Status: Ordered oxyCODONE 10 mg oral tablet 1 tablet = 10 mg, By Mouth, Every 12 hours, M[place] PAT REVIEWED NO driving, # 24 tablet, 0 Refills, Maintenance, 11/28/22 13:29:00 EST, [facility]/pharmacy #[id number], Partial fill upon patient request if the prescription is for a schedule II opioid drug., 169,... Start Date: 11/28/22 Status: Ordered PARoxetine 40 mg oral tablet 40 mg, 1, tablet, By Mouth, Daily, Refills 0, Maintenance, 01/11/22 9:43:00 EST Start Date: 01/11/22 Status: Ordered Pen [place], 31 G x 5 mm BD Ultra [...] 04/24/22 9:03:00 EDT, Route to Pharmacy Electronically, [facility], Partial fill upon patient request if [...] 0 Refills, Maintenance, 11/22/22 12:11:00 EST, Ointment, [facility]/pharmacy #[id number], Partial fill upon patient request [...] 2 Refills, Maintenance, 10/16/22 13:14:00 EST, Solution, [id number], Partial fill upon patient [...] Active Morbid obesity Confirmed Active BHN/CCA/CP- [facility] [id number] [facility] living active care coordination Confirmed Active Peripheral vascular disease - right SFA angioplasty/right great toe amputation 2021 Confirmed Active Severe obesity (BMI 35.0-39.9) with comorbidity Confirmed Active Umbilical hernia Confirmed Active 1per 2017 and 2019 [facility] notes Social History Social History Type Response Smoking Status Never (less than 100 in lifetime) entered on: 09/03/19 Sex 1per pt Patient Care team information Care Team Personnel Name: Allegra Aguayo MD Position: [facility] Resident Member Role: PCP Address: Address: [address] [place] [address] [place], [place] [address] Name: Vera Locke RN Position: S RN Member Role: Primary Care Nurse Name: Baljit Martínez RN Position: [facility] RN Member Role: Primary Care Nurse Name: Sabine Guthrie RN Position: [facility] RN Member Role: Primary Care Nurse Name: Aditi Hernandez RN Position: [facility] RN Member Role: Primary Care Nurse Name: Piyush Moore RN Position: [facility] RN Member Role: Primary Care Nurse Name: Mis Vences RN Position: [facility] RN Member Role: Primary Care Nurse Name: Angie Lopez RN Position: [facility] RN Member Role: Primary Care Nurse Name: Lizzie Estrada RN Position: [facility] Onco RN Member Role: Primary Care Nurse Care Team Related Persons Name: MIKEY SEAY Address: home [address] [address] Name: MIKEY AYALA Address: home [address] [place] [address] Name: TANIA COPPOLA Address: home [address] [place] [id number] Name: TANIA MUÑIZ Address: home [address] [place] [id number]
--- OUTSIDE RECORDS SUMMARY | 2023-02-20 15:10 | XMS_ITS | Continuity of Care Document ---
Author Name Unknown Organization [facility] Address [address] [place] [address]- Care Team Providers Care Asphalt Paving Foreman Name Role Phone Olivier MOSHER, Allegra Primary Care Physician [phone] Encounter [facility] Date(s): 10/02/22 - 11/01/22 [facility] [address], [place] [address] Allergies, Adverse Reactions, Alerts Substance Reaction Severity Status ibuprofen ABD PAIN Active morphine Vomiting and itchy Active traMADol Itchy, Hives Active Immunizations Given and Recorded Vaccine Date Status Refusal Reason SARS-CoV-2 mRNA ([id number]) vax 02/22/22 Recorded SARS-CoV-2 (COVID-19) mRNA BNT-162b2 [...] Note: VIS GIVEN-DATED 05/30/11 2Result Comment: LOT [id number] EXP 04 MAY 2010 3Admin Note: VIS [...] 04/24/22 9:05:00 EDT, Route to Pharmacy Electronically, [facility], Partial fill upon patient request if the prescription is for a schedule II opio... Start Date: 04/24/22 Status: Ordered ammonium lactate 5% topical lotion 1 application, Topically, 2 times a day, # 240 Gm, 0 Refills, Maintenance, 05/01/22 12:34:00 EDT, Lotion, [facility]/pharmacy #[id number], Partial fill upon patient request if [...] 05/13/22 16:40:00 EDT, Route to Pharmacy Electronically, [facility], Partial fill upon patient request if the prescription is... Start Date: 05/13/22 Stop Date: 11/09/22 Status: Ordered aspirin 81 mg oral delayed release tablet 81 mg, By Mouth, Daily, # 30 tablet, Refills 0, Tot. Refills 0, Maintenance, 11/09/22 16:40:00 EST,Route to Pharmacy Electronically, [facility]/pharmacy #[id number], Partial fill upon patient request if the prescription is for a schedule II opioid drug., 169, cm,... Start Date: 11/09/22 Stop Date: 12/09/22 Status: Ordered atorvastatin 40 mg oral tablet 1 tablet = 40 mg, By Mouth, Daily, # 90 tablet, 2 Refills, Maintenance, 04/24/22 9:41:00 EDT, Tablet, [facility], Partial fill upon patient request if [...] 07/26/22 16:13:00 EDT, Route to Pharmacy Electronically, [facility]/pharmacy #[id number], Partial fill upon patient request if the pres... Start Date: 07/26/22 Stop Date: 01/22/23 Status: Ordered carvedilol 25 mg oral tablet 25 mg, 1, tablet, By Mouth, 2 times a day, # 60 tablet, Refills 2, Tot. Refills 2, Maintenance, 01/22/23 16:13:00 EDT, Route to Pharmacy Electronically, [facility]/pharmacy #[id number], Partial fill upon patient request if the prescription is for a schedule II opi... Start Date: 01/22/23 Stop Date: 04/22/23 Status: Ordered Colace sodium 100 mg oral capsule 100 mg, 1, capsule, By Mouth, 2 times a day, PRN, # 60 capsule, Refills 0, Tot. Refills 0, Maintenance, for constipation, 03/16/22 14:30:00 EDT, Route to Pharmacy Electronically, [facility], Partial fill upon patient request if [...] 0 Refills, Maintenance, 09/21/22 11:57:00 EST, Tablet, [facility]/pharmacy #[id number], Partial fill upon patient request if [...] 10/16/22 10:25:00 EST, Route to Pharmacy Electronically, [facility] #[id number], Partial fill upon patientrequest if the prescription [...] Refills, Soft Stop, 10/16/22 8:19:00 EST, Solution, [facility]/pharmacy #[id number], Partial fill upon patient request if the prescription is for a schedule II opioid drug., 169, cm, 10/09/22 8:39:00 ES... Start Date: 10/16/22 Stop Date: 04/14/23 Status: Ordered Lasix 20 mg oral tablet 1, capsule, By Mouth, Once, take one pill daily for 3 days, # 3 tablet, Refills 0, Tot. Refills 0, Soft Stop, 09/20/22 11:19:00 EST, Route to Pharmacy Electronically, [facility]/pharmacy #[id number], Partial fillupon patient request if the [...] 10/16/22 10:24:00 EST, Route to Pharmacy Electronically, [facility] #[id number], Partial fill upon patientrequest if the prescription is for a schedule II op... Start Date: 10/16/22 Stop Date: 04/14/23 Status: Ordered NovoLOG FlexPen 100 units/mL injectable solution = 20 units, Subcutaneous Injection, 3 times a day before meals, INJECT 20 UNITS INTO SKIN THREE TIMES DAILY BEFORE A MEAL, # 15 mL, 10 Refills, Maintenance, 08/01/22 16:09:00 EDT, [facility]., 169, cm, 08/01/22 14:14:00 EDT, Height, [...] Acute 11/15/22 10:46:00 EST, 11/01/22 10:46:00 EST, [facility]/pharmacy #[id number], Partial fill upon patient request if [...] 04/24/22 9:03:00 EDT, Route to Pharmacy Electronically, [facility], Partial fill upon patient request if the prescription is for a schedule II opio... Start Date: 04/24/22 Status: Ordered ProAir HFA 90 mcg/inh inhalation aerosol 1 puffs, Inhalation, Every 4 hours, PRN as needed for wheezing, # 18 Gm, 0 Refills, Maintenance, 10/03/22 6:38:00 EST, Aerosol, [facility] #[id number], Partial fill upon patient request if the prescription is for a schedule II opioid drug., 1 puf... Start Date: 10/03/22 Status: Ordered Santyl 250 u/gm ointment 1 [...] 2 Refills, Maintenance, 10/16/22 13:14:00 EST, Solution, [facility]/pharmacy #[id number], Partial fill upon patient request if the prescription is for a schedule II opioid drug., 169, cm, 10/09/22 8:39... Start Date: 10/16/22 Status: Ordered Ventolin HFA 108 mcg/inh inhalation aerosol with adapter 2 puffs, Inhalation, Every 6 hours, PRN Wheezing/Shortness of Breath, # 8 Gm, 1 Refills, Maintenance, 05/30/22 10:56:00 EDT, [facility], Partial fill upon patient request if the prescription is for a schedule II opioid drug., 169, cm,... Start Date: 05/30/22 Status: Ordered wedge pillow wedge pillow, See [...] Active Morbid obesity Confirmed Active BHN/CCA/CP- [place] [id number] jail active care coordination Confirmed Active Peripheral vascular disease - right SFA angioplasty/right great toe amputation 2021 Confirmed Active Severe obesity (BMI 35.0-39.9) with comorbidity Confirmed Active Umbilical hernia Confirmed Active 1per 2017 and 2019 [facility] notes Social History Social History Type Response Smoking Status Never (less than 100 in lifetime) entered on: 09/03/19 Sex 1per pt Patient Care team information Care Team Personnel Name: Allegra Aguayo MD Position: [facility] Resident Member Role: PCP Address: Address: [address] [place] [address] [place], [place] [address] Name: Vera Locke RN Position: S RN Member Role: Primary Care Nurse Name: Baljit Martínez RN Position: [facility] RN Member Role: Primary Care Nurse Name: Sabine Guthrie RN Position: [facility] RN Member Role: Primary Care Nurse Name: Aditi Hernandez RN Position: S RN Member Role: Primary Care Nurse Name: Piyush Moore RN Position: [facility] RN Member Role: Primary Care Nurse Name: Mis Vences RN Position: S RN Member Role: Primary Care Nurse Name: Angie Lopez RN Position: [facility] RN Member Role: Primary Care Nurse Name: Lizzie Estrada RN Position: [facility] RN Member Role: Primary Care Nurse Care Team Related Persons Name: MIKEY SEAY Address: home [address] [address] Name: MIKEY AYALA Address: home [address] [place] [address] Name: TANIA COPPOLA Address: home [address] [place] [id number] Name: TANIA MUÑIZ Address: home [address] [place] [id number]
--- OUTSIDE RECORDS SUMMARY | 2023-02-20 15:10 | XMS_ITS | Continuity of Care Document ---
Author Name Unknown Organization [facility] Address [address] [place] [address]- Care Team Providers Care Strike Operations Officer Name Role Phone Sangeetha MOSHER, Marcia Koroma Primary Care Physician [phone] Encounter [facility] Date(s): 02/01/21 - 03/03/21 [facility] [address] [place], [place] [address] Allergies, Adverse Reactions, Alerts Substance [...] Note: VIS GIVEN-DATED 05/30/11 2Result Comment: LOT [id number] EXP 04 MAY 2010 3Admin Note: VIS given Medications albuterol 90 mcg/inh inhalation powder 2 puffs, Inhalation, Every 6 hours, PRN as needed, # 1 each, 11 Refills, Maintenance, 12/08/20 11:02:00 EST, Powder, [facility] #[id number], 2 puffs Inhalation Every 6 hours,PRN:as needed, 170, cm, 05/20/20 14:48:00 EDT, Height, 100.5, kg, 07/26/... Start Date: 12/08/20 Status: Ordered Alcohol Wipes See Instructions, # [...] tablet, Refills 3, Tot. Refills 3, Maintenance, 07/30/20 18:34:00 EDT, Route to Pharmacy Electronically, [facility] #[id number], 170, cm, 05/20/20 14:48:00 EDT, Height, 100.5, kg, 05/30/19 9:39:00 EDT, Dry... Start Date: 07/30/20 Stop Date: 07/25/21 Status: Ordered aspirin 81 mg oral delayed release tablet 81 mg, 1, tablet, By Mouth, Daily, # 30 tablet, Refills 11, Tot. Refills 11, Maintenance, 05/20/20 14:45:00 EDT, Route to Pharmacy Electronically, [facility] #[id number], 170, cm, 05/20/20 14:08:00 EDT, Height, 100.5, kg, 05/30/19 9:39:00 EDT, Start Date: 05/20/20 Status: Ordered atorvastatin 10 mg oral tablet 1 tablet = 10 mg, By Mouth, Daily, # 30 tablet, 11 Refills, Maintenance, 05/20/20 14:46:00 EDT, [facility] #[id number], 170, cm, 05/20/20 14:08:00 EDT, Height, 100.5, [...] and prn for uncontrolled DM type II, 07/29/20 11:24:00 EDT, Compound, 170, cm, 05/20/20 14:48:00 EDT, Height, 100.5, kg, 05/30/19 9:39:00 EDT, Dry... Start Date: 07/29/20 Status: Ordered Freestyle Lite Monitor See Instructions, # 1 each, Maintenance, use to check bs up to five times daily. dx DX E11.65, 12/11/19 10:06:00 EST, Compound, 170, cm, 09/03/19 10:13:00 EDT, Height, 100.5, kg, 05/30/19 9:39:00 EDT, Dry Weight Start Date: 12/11/19 Status: Ordered Freestyle Lite Test Strips See Instructions, # 120 each, Refills 11, Tot. Refills 11, Maintenance, 4x aday, 11/02/20 15:27:00 EST, Supply, 170, cm, 05/20/20 14:48:00 EDT, Height, 100.5, kg, 05/30/19 9:39:00 EDT, Dry Weight Start Date: 11/02/20 Stop Date: 10/28/21 Status: Ordered Insulin Syringe, BD Ultra-Fine 0.5 cc 31 G x 8 mm (16in) See Instructions, for 30 days, # 150 each, Refills 5, Tot. Refills 5, Hard Stop 03/09/21 18:41:00 EDT, use as directed for Type 2 Diabetes Mellitus to admisiter insulin four times a day. Dx; E11.9, 09/10/20 18:41:00 EST, pt was transferred to [facility]... Start Date: 09/10/20 Stop Date: 03/09/21 Status: Ordered Insulin Syringe, BD Ultra-Fine 0.5 cc 31 G x 8 mm (5/16in) See Instructions, # 150 each, Refills 0, Tot. Refills 0, Maintenance, use as directed for Type 2 Diabetes Mellitus to admisiter insulin four times a day. Dx; E11.9, 01/29/21 11:54:00 EDT, Compound, 170, cm, 12/21/20 9:18:00 EST, Height, 100.5, kg, 0... Start Date: 01/29/21 Stop Date: 02/28/21 Status: Ordered Lantus Solostar Pen 100 units/mL subcutaneous solution See Instructions, Inject 40 units under the skin twice daily., # 24 mL, 3 Refills, Maintenance, 01/29/21 9:00:00 EDT, [facility] #[id number], 170, cm, 12/21/20 9:18:00 EST, Height, 100.5, kg, 05/30/19 9:39:00 EDT, Dry Weight Start Date: 01/29/21 Status: Ordered lisinopril 40 mg oral tablet 1 tablet = 40 mg, By Mouth, Daily, # 90 tablet, 4 Refills, Maintenance, 02/03/20 12:39:00 EDT, Tablet, [facility] #[id number], 170, cm, 12/16/19 10:11:00 EST, Height, 100.5, kg, 05/30/19 9:39:00EDT, Dry Weight Start Date: 02/03/20 Stop Date: 04/28/21 Status: Ordered Melatonin 5 mg oral tablet 0 Refills, Maintenance, 01/29/19 10:09:09 EDT Start Date: 01/29/19 Status: Ordered NovoLOG 100 units/mL injectable solution = 20 units, Subcutaneous Infusion, 3 times a day before meals, replaces humalog please use pens, # 50 mL, 1 Refills, Maintenance, 12/17/20 13:06:00 EST, [facility] #[id number], 170, cm, 05/20/2014:48:00 EDT, Height, 100.5, kg, 05/30/19 9:39:00 E... Start Date: 12/17/20 Status: Ordered OXcarbazepine 300 mg oral tablet TK 1 T PO BID Start Date: 01/29/19 Status: Ordered PARoxetine 40 mg oral tablet TK 1 T PO HS Start Date: 01/29/19 Status: Ordered Pen [place], 31 G x 5 mm BD Ultra Fine III See Instructions, # 150 each, Refills 11, Tot. Refills 11, Maintenance, use to inject insulin up tofive times daily dx e11.9, 10/21/20 15:55:00 EST, Supply, 170, cm, 05/20/20 14:48:00 EDT, Height, 100.5, kg, 05/30/19 9:39:00 EDT, Dry Weight Start Date: 10/21/20 Status: Ordered Pen [place], 31 G x 5 mm BD Ultra Fine III See Instructions, # 300 each, Refills 2, Tot. Refills 2, Maintenance, Use for injection of insulin up to 5 times daily. For type 2 diabetes mellitus., 01/29/21 11:17:00 EDT, if possible please give box rather than bag as patient has difficulty when pe... Start Date: 01/29/21 Stop Date: 10/26/21 Status: Ordered Senna 8.6 mg oral tablet 17.2 mg, 2, tablet, By Mouth, Daily, Refills 0, Maintenance, 06/01/19 9:40:46 EDT, Tablet Start Date: 06/01/19 Status: Ordered sitaGLIPtin 100 mg oral tablet = 100 mg, By Mouth, Daily, You are due for lab work. order is in Please go to the lab. thank you, #30 tablet, 2 Refills, Maintenance, 02/11/21 11:27:00 EDT, Tablet, [facility] #[id number], pt needs labs; to replace 50 mg dose;, 170, cm, 12/21/20... Start Date: 02/11/21 Status: Ordered traZODone 300 mg oral tablet TK 1 T PO HS Start Date: 01/29/19 Status: Ordered Trulicity Pen 1.5 mg/0.5 mL subcutaneous solution 0.5 mL = 1.5 mg, Subcutaneous Injection, Every week, # 2.5 mL, 5 Refills, Maintenance, 02/01/21 14:49:00 EDT, Solution, [facility] #[id number], to replace 0.75 mg dose, 170, cm, 12/21/20 9:18:00EST, Height, 100.5, kg, 05/30/19 9:39:00 EDT, Dry W... Start Date: 02/01/21 Stop Date: 07/31/21 Status: Ordered Vraylar 3 mg oral capsule 0 Refills, Maintenance, 10/25/20 15:18:00 EST, Partial fill upon patient request if the prescription is for a schedule II opioid drug. Start Date: 10/25/20 Status: Ordered Vraylar 3 mg oral capsule 0 Refills, Maintenance, 10/25/20 15:20:00 EST, Partial fill upon patient request if the prescription is for a schedule II opioid drug. Start Date: 10/25/20 Status: Ordered Zofran 4 mg oral tablet [...] retinopathy - next due (Confirmed) 2016 Active Reading difficulty(Confirmed) Active Dyslipidemia(Confirmed) Active Hypertension(Confirmed) Active Microalbuminuria(Confirmed) Active Morbid obesity(Confirmed) Active BHN/CCA/CP-Mignon Peters [phone]/Health long term active care coordination(Confirmed) Active Peripheral vascular disease(Confirmed) Active Umbilical hernia(Confirmed) Active 1per 2017 and 2019 [facility] notes Social History Social History Type Response Smoking Status Never (less than 100 in lifetime) entered on: 09/03/19 Sex Female 1per pt
--- OUTSIDE RECORDS SUMMARY | 2023-02-20 15:10 | XMS_ITS | Continuity of Care Document ---
Author Name Unknown Organization [facility] Address [address] [place] [address]- Care Team Providers Care Crib Pad Maker Name Role Phone Josef MOSHER, Mamie Patterson Primary Care Physician [place] [facility] Date(s): 12/29/21 - 01/28/22 [facility] [address] [place] [address]- Allergies, Adverse Reactions, Alerts Substance Reaction Severity Status ibuprofen ABD PAIN Active morphine Vomiting and itchy Active traMADol Itchy, Hives Active Immunizations Given and Recorded Vaccine Date Status Refusal Reason SARS-CoV-2 (COVID-19) mRNA BNT-162b2 vac 08/11/21 Given [...] Note: VIS GIVEN-DATED 05/30/11 2Result Comment: LOT [id number] EXP 04 MAY 2010 3Admin Note: VIS given Medications Accu-Chek Erika Glucose Meter See Instructions, # 1 each, Maintenance, use to check bs 4 times daily dx E11.9, 07/21/21 11:27:00 EDT, Supply, 170, cm, 07/20/21 8:57:00 EDT, Height Start Date: 07/21/21 Status: Ordered Accu-Chek Erika Plus Test Strips See Instructions, # 150 each, Refills 11, Tot. Refills 11, Maintenance, use to check bs qid dx e11.9, 07/21/21 11:28:00 EDT, Supply, 170, cm, 07/20/21 8:57:00 EDT, Height Start Date: 07/21/21 Status: Ordered Accu-Chek Compact Lancets See Instructions, # 150 each, Refills 11, Tot. Refills 11, Maintenance, use to check BS qid dx e11.9, 07/21/21 11:27:00 EDT, Supply, 170, cm, 07/20/21 8:57:00 EDT, Height Start Date: 07/21/21 Status: Ordered amLODIPine 10 mg oral tablet 10 mg, 1, tablet, By Mouth, Daily, # 90 tablet, Refills 4, Tot. Refills 4, Maintenance, 12/29/21 10:02:00 EST, Route to Pharmacy Electronically, [facility] #[id number], 170, cm, 07/28/21 10:50:00 EDT, Height Start Date: 12/29/21 Stop Date: 03/24/23 Status: Ordered atorvastatin 10 mg oral tablet 1 tablet, By Mouth, Daily, # 90 tablet, 1 Refills, Maintenance, 12/13/21 19:21:00 EST, [facility] #[id number], 170, cm, 07/28/21 10:50:00 EDT, Height Start Date: 12/13/21 Status: Ordered Blood Pressure Monitor See Instructions, # 1 each, Maintenance, DX HTN, ICD E11.9, 01/11/22 9:28:00 EST, Supply Start Date: 01/11/22 Status: Ordered FREESTYLE LITE BLOOD GLUCOSE STRIPS FREESTYLE LITE BLOOD GLUCOSE STRIPS, See Instructions, # 100 Unknown, 0 Refills, USE TO CHECK BLOODSUGAR THREE TIMES DAILY, 170, cm, 07/28/21 10:50:00 EDT, Height Start Date: 01/10/22 Status: Ordered Freestyle Lite Test Strips See Instructions, # 100 each, Refills 3, Tot. Refills 3, Maintenance, USE TO TEST 3 TIMES DAILY, 12/29/21 10:02:00 EST, Supply, 170, cm, 07/28/21 10:50:00 EDT, Height Start Date: 12/29/21 Stop Date: 04/28/22 Status: Ordered hydrochlorothiazide 25 mg oral tablet 25 mg, 1, tablet, By Mouth, Daily, # 90 tablet, Refills 0, Tot. Refills 0, Maintenance, 12/29/21 10:02:00 EST, Route to Pharmacy Electronically, [facility] #[id number], Partial fill upon patientrequest if the prescription is for a schedule II op... Start Date: 12/29/21 Stop Date: 03/29/22 Status: Ordered Insulin Syringe, BD Ultra-Fine 0.5 cc 31 G x 8 mm (5/16in) See Instructions, # 100 each, Refills 2, Tot. Refills 2, Maintenance, use as directed for Type 2 Diabetes Mellitus to admisiter insulin two times a day. Dx; E11.9, 12/16/21 10:32:00 EST, Compound, 170, cm, 07/28/21 10:50:00 EDT, Height Start Date: 12/16/21 Stop Date: 03/16/22 Status: Ordered Januvia 100 mg oral tablet 1 tablet, By Mouth, Daily, # 90 tablet, 11 Refills, Maintenance, 12/29/21 10:02:00 EST, [facility] #[id number], resent - not recvd, 170, cm, 07/28/21 10:50:00 EDT, Height Start Date: 12/29/21 Status: Ordered Lantus 100 u/ml subcutaneous solution = 45 units, Subcutaneous Infusion, 2 times a day, changed from PEN, pt requesting vials, # 12 mL, 11 Refills, Maintenance, 01/11/22 9:45:00 EST, [facility] #[id number], Partial fill upon patientrequest if the prescription is for a schedule II op... Start Date: 01/11/22 Status: Ordered lidocaine 5% topical ointment 1 application, Topically, 3 times a day, wash hands thoroughly after application, prn pain, # 50 Gm, 0 Refills, Maintenance, 01/11/22 9:49:00 EST, Ointment, [facility] #[id number], Partial fill upon patient request if the prescription is for a sc... Start Date: 01/11/22 Status: Ordered lisinopril 40 mg oral tablet 1 tablet = 40 mg, By Mouth, Daily, # 90 tablet, 4 Refills, Maintenance, 07/20/21 9:25:00 EDT, Tablet, [facility] #[id number], 170, cm, 07/20/21 8:57:00 EDT, Height Start Date: 07/20/21 Stop Date: 10/13/22 Status: Ordered NovoLOG 100 units/mL injectable solution See Instructions, ADMINISTER 20 UNITS UNDER THE SKIN THREE TIMES DAILY BEFORE MEALS 90 DAY SUPPLY REQUESTED, # 30 mL, 2 Refills, [facility] #[id number], 170, cm, 07/28/21 10:50:00 EDT, Height Start Date: 01/10/22 Status: Ordered PARoxetine 40 mg oral tablet Refills 0, Maintenance, 01/11/22 9:43:00 EST, Partial fill upon patient request if the prescriptionis for a schedule II opioid drug. Start Date: 01/11/22 Status: Ordered Precision Extra Glucose Meter See Instructions, # 1 each, Maintenance, use to check bs qid dx E11.9, 07/22/21 8:38:00 EDT, Supply, 170, cm, 07/20/21 8:57:00 EDT, Height Start Date: 07/22/21 Status: Ordered Precision Xtra Glucose Test Strips See Instructions, # 150 each, Refills 11, Tot. Refills 11, Maintenance, use to check bs qid dx E11.9, 07/22/21 8:39:00 EDT, Supply, 170, cm, 07/20/21 8:57:00 EDT, Height Start Date: 07/22/21 Status: Ordered Trulicity Pen 3 mg/0.5 mL subcutaneous solution See Instructions, ADMINISTER 0.5 ML UNDER THE SKIN EVERY WEEK. ROTATE INJECTION SITES, # 2 mL, 0 Refills, [facility] #[id number], 170, cm, 07/28/21 10:50:00 EDT, Height Start Date: 01/10/22 Status: Ordered Ventolin HFA 108 mcg/inh inhalation aerosol with adapter 1 puffs, Inhalation, 4 times a day, PRN NEEDED FOR WHEEZING, # 18 Gm, 0 Refills, [facility] #[id number], 170, cm, 01/11/22 9:39:00 EST, Height Start Date: 01/12/22 Status: Ordered Problem List Condition Effective Dates Status Health Status Inform ant Abdominal pain(Confirmed) Active Storey's cyst of knee(Confirmed) Active Cholecystectomy(Confirmed) Active Diabetes mellitus(Confirmed) 07/2007 Active Diabetic peripheral neuropathy(Confirmed) Active Diabetic retinopathy - next due (Confirmed) 2016 Active Reading difficulty(Confirmed) Active Dyslipidemia(Confirmed) Active Hypertension(Confirmed) Active Microalbuminuria(Confirmed) Active Morbid obesity(Confirmed) Active Obese class I(Confirmed) Active BHN/CCA/Luis Felipe Peters [phone]/Health detention active care coordination(Confirmed) Active Peripheral vascular disease(Confirmed) Active Umbilical hernia(Confirmed) Active 1per 2016 and 2018 [facility] notes Social History Social History Type Response Smoking Status Never (less than 100 in lifetime) entered on: 09/03/19 Sex Female 1per pt
--- OUTSIDE RECORDS SUMMARY | 2023-02-20 15:11 | XMS_ITS | Continuity of Care Document ---
Author Name Unknown Organization [facility] Address [address] [place] [address]- Care Team Providers Care Acoustic Warfare Analyst Name Role Phone Josef MOSHER, Mamie Patterson Primary Care Physician [phone] [place] [facility] [place] 01[place]22 [facility] [address], [place] [address] Allergies, Adverse Reactions, Alerts [...] Note: VIS GIVEN-DATED 05/30/11 2Result Comment: LOT [id number] EXP 04 MAY 2010 3Admin Note: VIS [...] 12/29/21 10:02:00 EST, Route to Pharmacy Electronically, [facility] #[id number], 170, cm, 07/28/21 10:50:00 EDT, Height Start Date: 12/29/21 Stop Date: 03/24/23 Status: Ordered atorvastatin 10 mg oral tablet 1 tablet, By Mouth, Daily, # 90 tablet, 1 Refills, Maintenance, 12/13/21 19:21:00 EST, [facility] #[id number], 170, cm, 07/28/21 10:50:00 EDT, Height Start [...] 12/29/21 10:02:00 EST, Route to Pharmacy Electronically, [facility] #[id number], Partial fill upon patientrequest if the prescription [...] tablet, 11 Refills, Maintenance, 12/29/21 10:02:00 EST, [facility] #[id number], resent - not recvd, 170, cm, 07/28/21 10:50:00 EDT, Height Start Date: 12/29/21 Status: Ordered Lantus 100 u/ml subcutaneous solution = 45 units, Subcutaneous Infusion, 2 times a day, changed from PEN, pt requesting vials, # 12 mL, 11 Refills, Maintenance, 01/11/22 9:45:00 EST, [facility] #[id number], Partial fill upon patientrequest if the prescription is for a schedule II op... Start Date: 01/11/22 Status: Ordered lidocaine 5% topical ointment 1 application, Topically, 3 times a day, wash hands thoroughly after application, prn pain, # 50 Gm, 0 Refills, Maintenance, 01/11/22 9:49:00 EST, Ointment, [facility] #[id number], Partial fill upon patient request if the prescription is for a sc... Start Date: 01/11/22 Status: Ordered lisinopril 40 mg oral tablet 1 tablet = 40 mg, By Mouth, Daily, # 90 tablet, 4 Refills, Maintenance, 07/20/21 9:25:00 EDT, Tablet, [facility] #[id number], 170, cm, 07/20/21 8:57:00 EDT, Height Start Date: 07/20/21 Stop Date: 10/13/22 Status: Ordered NovoLOG 100 units/mL injectable solution See Instructions, ADMINISTER 20 UNITS UNDER THE SKIN THREE TIMES DAILY BEFORE MEALS 90 DAY SUPPLY REQUESTED, # 30 mL, 2 Refills, [facility] #[id number], 170, cm, 07/28/21 10:50:00 EDT, Height Start [...] INJECTION SITES, # 2 mL, 0 Refills, [facility] #[id number], 170, cm, 07/28/21 10:50:00 EDT, Height Start Date: 01/10/22 Status: Ordered Ventolin HFA 108 mcg/inh inhalation aerosol with adapter 1 puffs, Inhalation, 4 times a day, PRN NEEDED FOR WHEEZING, # 18 Gm, 0 Refills, [facility] #[id number], 170, cm, 01/11/22 9:39:00 EST, Height Start [...] Obese class I(Confirmed) Active [facility] [phone]/Health [facility] active care coordination(Confirmed) Active Peripheral vascular disease(Confirmed) Active Umbilical hernia(Confirmed) Active 1per 2016 and 2018 [facility] notes Social History Social History Type Response Smoking Status Never (less than 100 in lifetime) entered on: 09/03/19 Sex Female 1per pt
--- OUTSIDE RECORDS SUMMARY | 2023-02-20 15:11 | XMS_ITS | Continuity of Care Document ---
Author Name Unknown Organization [facility] Address [address] [place] [address]- Care Team Providers Care Education Instructor Name Role Phone Josef MOSHER, Mamie Patterson Primary Care Physician [phone] [place] [facility] [place] 04/07/22 - 05/07/22 [facility] [address], [place] [address] Allergies, Adverse Reactions, Alerts Substance Reaction Severity Status ibuprofen ABD PAIN Active morphine Vomiting and itchy Active traMADol Itchy, Hives Active Immunizations Given and Recorded Vaccine Date Status Refusal Reason SARS-CoV-2 mRNA ([id number]) vax 02/22/22 Recorded SARS-CoV-2 (COVID-19) mRNA BNT-162b2 [...] Note: VIS GIVEN-DATED 05/30/11 2Result Comment: LOT [id number] EXP 04 MAY 2010 3Admin Note: VIS [...] 04/24/22 9:05:00 EDT, Route to Pharmacy Electronically, [facility], Partial fill upon patient request if the prescription is for a schedule II opio... Start Date: 04/24/22 Status: Ordered ammonium lactate 5% topical lotion 1 application, Topically, 2 times a day, # 240 Gm, 0 Refills, Maintenance, 05/01/22 12:34:00 EDT, Lotion, [facility]/pharmacy #[id number], Partial fill upon patient request if the prescription is for a schedule II opioid drug., 1 application Topically 2 times a da... Start Date: 05/01/22 Stop Date: 05/31/22 Status: Ordered aspirin 81 mg oral delayed release tablet 81 mg, By Mouth, Daily, # 30 tablet, Refills 5, Tot. Refills 5, Maintenance, 05/13/22 16:40:00 EDT,Route to Pharmacy Electronically, [facility], Partial fill upon patient request if the prescription is for a schedule II opioid drug.,... Start Date: 05/13/22 Stop Date: 11/09/22 Status: Ordered aspirin 81 mg oral delayed release tablet 81 mg, By Mouth, Daily, for 30 days, # 30 tablet, Refills 0, Tot. Refills 0, Hard Stop 05/13/22 16:40:00 EDT, 04/13/22 16:40:00 EDT, Route to Pharmacy Electronically, [facility], Partial fill upon patient request if the prescription is f... Start Date: 04/13/22 Stop Date: 05/13/22 Status: Ordered atorvastatin 40 mg oral tablet 1 tablet = 40 mg, By Mouth, Daily, # 90 tablet, 2 Refills, Maintenance, 04/24/22 9:41:00 EDT, Tablet, [facility], Partial fill upon patient request if the [...] times a day, # 60 tablet, Refills 5, Tot. Refills 5, Maintenance, 05/13/22 16:40:00 EDT, Route to Pharmacy Electronically, [facility], Partial fill upon patient request if the prescription is for a schedul... Start Date: 05/13/22 Stop Date: 11/09/22 Status: Ordered carvedilol 25 mg oral tablet 25 mg, 1, tablet, By Mouth, 2 times a day, for 30 days, # 60 tablet, Refills 0, Tot. Refills 0, Hard Stop 05/13/22 16:40:00 EDT, 04/13/22 16:40:00 EDT, [facility], Partial fill upon patient request if th... Start Date: 04/13/22 Stop Date: 05/13/22 Status: Ordered Colace sodium 100 mg oral capsule 100 mg, 1, capsule, By Mouth, 2 times a day, PRN, # 60 capsule, Refills 0, Tot. Refills 0, Maintenance, for constipation, 03/16/22 14:30:00 EDT, [facility] Partial fill upon patient request if the pre... Start Date: 03/16/22 Status: Ordered Darco front offloading shoe Darco front offloading shoe, See Instructions, # 1 each, Refills 0, Tot. Refills 0, Maintenance, dx: dfu, 03/14/22 10:48:00 EDT, Compound Start Date: 03/14/22 Status: Ordered doxycycline hyclate 100 mg oral capsule 1 capsule = 100 mg, By Mouth, Every 12 hours, for 14 days, # 28 capsule, 0 Refills, Acute 05/11/22 8:04:00 EDT, 04/27/22 8:04:00 EDT, Capsule, [facility], Partial fill upon patient request if the prescription is for a schedule II opioid... Start Date: 04/27/22 Stop Date: 05/11/22 Status: Ordered FREESTYLE LITE BLOOD GLUCOSE STRIPS FREESTYLE LITE BLOOD GLUCOSE STRIPS, See Instructions, # 100 Unknown, 0 Refills, USE TO CHECK BLOODSUGAR THREE TIMES DAILY, 170, cm, 07/28/21 10:50:00 EDT, Height Start Date: 01/10/22 Status: Ordered Freestyle Lite Test Strips See Instructions, # 100 each, Refills 3, Tot. Refills 3, Maintenance, USE TO TEST 4 TIMES DAILY, 07/07/22 14:23:00 EDT, Supply, 170, cm, 04/24/22 8:36:00 EDT, Height, 104.9, kg, 03/04/22 2:58:00 EDT,Dry Weight Start Date: 07/07/22 Stop Date: 11/04/22 Status: Ordered Freestyle Lite Test Strips See Instructions, for 30 days, # 100 each, Refills 3, Tot. Refills 3, Hard Stop 08/23/22 9:03:00 EDT, USE TO TEST 4 TIMES DAILY, 04/25/22 9:03:00 EDT, Supply, 170, cm, 04/24/22 8:36:00 EDT, Height, 104.9, kg, 03/04/22 2:58:00 EDT, Dry Weight Start Date: 04/25/22 Stop Date: 08/23/22 Status: Ordered furosemide 20 mg oral tablet 20 mg, 1, tablet, By Mouth, Daily, # 30 tablet, Refills 5, Tot. Refills 5, Maintenance, 04/24/22 9:02:00 EDT, Route to Pharmacy Electronically, [facility], Partial fill upon patient request if the prescription is for a schedule II opio... Start Date: 04/24/22 Status: Ordered insulin aspart 100 units/mL subcutaneous solution = 20 units, Subcutaneous Injection, 3 times a day before meals, # 10 mL, 11 Refills, Maintenance, 03/10/22 9:06:00 EDT, Solution, [facility] #[id number], Partial fill upon patient request if theprescription is for a schedule II opioid drug., 169... Start Date: 03/10/22 Status: Ordered Insulin Syringe, BD Ultra-Fine 0.5 cc 31 G x 8 mm (5/16in) See Instructions, # 100 each, Refills 3, Tot. Refills 3, Maintenance, use as directed for Type 2 Diabetes Mellitus to admisiter insulin two times a day. Dx; E11.9, 03/09/22 14:24:00 EDT, Compound, 169, cm, 03/09/22 13:46:00 EDT, Height, 104.9, kg,... Start Date: 03/09/22 Stop Date: 07/07/22 Status: Ordered Januvia 100 mg oral tablet 1 tablet, By Mouth, Daily, # 90 tablet, 11 Refills, Maintenance, 03/09/22 14:23:00 EDT, [facility], resent - not recvd, 169, cm, 03/09/22 13:46:00 EDT, Height, 104.9, kg, 03/04/22 2:58:00 EDT, Dry Weight Start Date: 03/09/22 Status: Ordered Lantus 100 u/ml subcutaneous solution = 30 units, Subcutaneous Injection, 2 times a day, # 10 mL, 5 Refills, Maintenance, 03/10/22 9:05:00 EDT, [facility] #[id number], Partial fill upon patient request if the prescription is for a schedule II opioid drug., 169, cm, 03/09/22... Start Date: 03/10/22 Status: Ordered lisinopril 10 mg oral tablet 10 mg, 1, tablet, By Mouth, Daily, # 30 tablet, Refills 4, Tot. Refills 4, Maintenance, 04/24/22 9:41:00 EDT, Route to Pharmacy Electronically, [facility], Partial fill upon patient request if the prescription is for a schedule II opio... Start Date: 04/24/22 Status: Ordered Offloading boot Offloading boot, See Instructions, # 1 each, Refills 0, Tot. Refills 0, Maintenance, Diagnosis: Diabetic foot infection ICD code E11. 621, 03/06/22 15:20:00 EDT, Supply, 169, cm, 03/05/22 19:45:00 EDT, Height, 104.9, kg, 03/04/22 2:58:00 EDT, Dry W... Start Date: 03/06/22 Status: Ordered oxyCODONE 5 mg oral tablet 5 mg, 1, tablet, By Mouth, Every 6 hours, PRN, # 20 tablet, Refills 0, Tot. Refills 0, Acute 05/24/22 10:39:00 EDT, as needed for pain, 04/24/22 13:25:00 EDT, Route to Pharmacy Electronically, [facility]/pharmacy #[id number], Partial fill upon patient request if t... Start Date: 04/24/22 Stop Date: 05/24/22 Status: Ordered oxyCODONE 5 mg oral tablet 5 mg, 1, tablet, By Mouth, Every 6 hours, PRN, for 7 days, # 28 tablet, Refills 0, Tot. Refills 0, Acute 05/31/22 10:39:00 EDT, as needed for pain, 05/24/22 10:39:00 EDT, Route to Pharmacy Electronically, [facility]/pharmacy #[id number], Partial fill upon patient... Start Date: 05/24/22 Stop Date: 05/31/22 Status: Ordered PARoxetine 40 mg oral tablet 40 mg, 1, tablet, By Mouth, Daily, Refills 0, Maintenance, 01/11/22 9:43:00 EST Start Date: 01/11/22 Status: Ordered Plavix 75 mg oral tablet 75 mg, 1, tablet, By Mouth, Daily, # 30 tablet, Refills 5, Tot. Refills 5, Maintenance, 04/24/22 9:03:00 EDT, Route to Pharmacy Electronically, [facility], Partial fill upon patient request if the prescription is for a schedule II opio... Start Date: 04/24/22 Status: Ordered Precision Extra Glucose Meter See [...] EDT, Height Start Date: 07/22/21 Status: Ordered ProAir HFA 90 mcg/inh inhalation aerosol 1 puffs, Inhalation, Every 4 hours, PRN as needed for wheezing, # 18 Gm, 0 Refills, Maintenance, 04/18/22 9:51:00 EDT, Aerosol, [facility], Partial fill upon patient request if the prescription is for a schedule II opioid drug., 1 puff... Start Date: 04/18/22 Status: Ordered Santyl Topical Oint 1 applicator, Topically, Daily, 0 Refills, Maintenance, Ointment Start Date: 04/13/22 Status: Ordered silver topical gel See Instructions, Topically Daily cover with appropriate dressing after application clean wound prior to application, # 45 mL, 0 Refills, Maintenance, 03/09/22 14:21:00 EDT, Gel, [facility], Partial fill upon patient request if the p... Start Date: 03/09/22 Status: Ordered traZODone 300 mg oral tablet 1 tablet = 300 mg, By Mouth, Daily at bedtime Start Date: 03/03/22 Status: Ordered Trulicity Pen 3 mg/0.5 mL subcutaneous solution See Instructions, ADMINISTER 0.5 ML UNDER THE SKIN EVERY WEEK. ROTATE INJECTION SITES, # 2 mL, 11 Refills, 03/09/22 14:22:00 EDT, [facility]., 169, cm, 03/09/22 13:46:00 EDT, Height, 104.9, kg, 03/04/22 2:58:00 EDT, Dry Weight Start Date: 03/09/22 Status: Ordered Tylenol 8 Hour 650 mg oral tablet, extended release 2 tablet = 1,300 mg, By Mouth, Every 8 hours, PRN as needed for pain, # 24 tablet, 0 Refills, Maintenance, 04/24/22 9:43:00 EDT, ER Tablet, [facility], Partial fill upon patient request if the prescription is for a schedule II opioid d... Start Date: 04/24/22 Status: Ordered Problem List Condition Effective Dates Status Health Status Inform ant Abdominal pain(Confirmed) Active Storey's cyst of knee(Confirmed) Active Cholecystectomy(Confirmed) Active Diabetes mellitus(Confirmed) 07/2007 Active Diabetic peripheral neuropathy(Confirmed) Active Diabetic retinopathy - next due (Confirmed) 2016 Active Reading difficulty(Confirmed) Active Dyslipidemia(Confirmed) Active Hypertension(Confirmed) Active Microalbuminuria(Confirmed) Active Morbid obesity(Confirmed) Active Obese class I(Confirmed) Active [facility]N/[facility] [phone]/Health [facility] active care coordination(Confirmed) Active Peripheral vascular disease(Confirmed) Active Uncontrolled type 1 diabetes mellitus with hyperglycemia, with long-term current use of insulin(Confirmed) Active Umbilical hernia(Confirmed) Active 1per 2016 and 2018 [facility] notes Social History Social History Type Response Smoking Status Never (less than 100 in lifetime) entered on: 09/03/19 Sex 1per pt
--- OUTSIDE RECORDS SUMMARY | 2023-02-20 15:11 | XMS_ITS | Continuity of Care Document ---
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..] Note: VIS GIVEN-DATED 05/30/11 2Result Comment: LOT [id number] EXP 04 MAY 2010 3Admin Note: VIS [...] tablet, Refills 5, Tot. Refills 5, Maintenance, 03/10/22 9:04:00 EDT, Route to Pharmacy Electronically, [facility] #[id number], Partial fill upon patient request if the prescription is for a schedule II opi... Start Date: 03/10/22 Status: Ordered atorvastatin 10 mg oral tablet 1 tablet, By Mouth, Daily, # 90 tablet, 1 Refills, Maintenance, 12/13/21 19:21:00 EST, [facility] #[id number], 170, cm, 07/28/21 10:50:00 EDT, Height Start Date: 12/13/21 Status: Ordered Blood Pressure Monitor See Instructions, # 1 each, Maintenance, DX HTN, ICD E11.9, 01/11/22 9:28:00 EST, Supply Start Date: 01/11/22 Status: Ordered Colace sodium 100 mg oral capsule 100 mg, 1, capsule, By Mouth, 2 times a day, PRN, # 60 capsule, Refills 0, Tot. Refills 0, Maintenance, for constipation, 03/16/22 14:30:00 EDT, Route to Pharmacy Electronically, [facility], Partial fill upon patient request if the pre... Start Date: 03/16/22 Status: Ordered Darco front offloading shoe Darco front offloading shoe, See Instructions, # 1 each, Refills 0, Tot. Refills 0, Maintenance, dx: dfu, 03/14/22 10:48:00 EDT, Compound Start Date: 03/14/22 Status: Ordered FREESTYLE LITE BLOOD GLUCOSE STRIPS FREESTYLE LITE BLOOD GLUCOSE STRIPS, See Instructions, # 100 Unknown, 0 Refills, USE TO CHECK BLOODSUGAR THREE TIMES DAILY, 170, cm, 07/28/21 10:50:00 EDT, Height Start Date: 01/10/22 Status: Ordered Freestyle Lite Test Strips See Instructions, # 100 each, Refills 3, Tot. Refills 3, Maintenance, USE TO TEST 3 TIMES DAILY, 03/09/22 14:23:00 EDT, Supply, 169, cm, 03/09/22 13:46:00 EDT, Height, 104.9, kg, 03/04/22 2:58:00 EDT, Dry Weight Start Date: 03/09/22 Stop Date: 07/07/22 Status: Ordered hydroCHLOROthiazide 12.5 mg oral capsule 1 capsule = 12.5 mg, By Mouth, Daily, # 30 capsule, 0 Refills, Maintenance, 03/16/22 14:35:00 EDT, Capsule, [facility], Partial fill upon patient request if the prescription is for a schedule II opioid drug., 169, cm, 03/16/22 14:07:00... Start Date: 03/16/22 Status: Ordered insulin aspart 100 units/mL subcutaneous solution = 20 units, Subcutaneous Injection, 3 times a day before meals, # 10 mL, 11 Refills, Maintenance, 03/10/22 9:06:00 EDT, Solution, [facility] #[id number], Partial fill upon patient request if theprescription [...] tablet, 11 Refills, Maintenance, 03/09/22 14:23:00 EDT, [facility], resent - not recvd, 169, cm, 03/09/22 13:46:00 EDT, Height, 104.9, kg, 03/04/22 2:58:00 EDT, Dry Weight Start Date: 03/09/22 Status: Ordered Lantus 100 u/ml subcutaneous solution = 30 units, Subcutaneous Injection, 2 times a day, # 10 mL, 5 Refills, Maintenance, 03/10/22 9:05:00 EDT, Solution, [facility] #[id number], Partial fill upon patient request if the prescription is for a schedule II opioid drug., 169, cm, 03/09/22... Start Date: 03/10/22 Status: Ordered lisinopril 40 mg oral tablet 1 tablet = 40 mg, By Mouth, Daily, # 30 tablet, 5 Refills, Maintenance, 03/10/22 9:03:00 EDT, Tablet, [facility] #[id number], Partial fill upon patient request if the prescription is for a schedule II opioid drug., 169, cm, 03/09/22 13:46:00 EDT,... Start Date: 03/10/22 Status: Ordered Offloading boot Offloading boot, See Instructions, # 1 each, Refills 0, Tot. Refills 0, Maintenance, Diagnosis: Diabetic foot infection ICD code E11. 621, 03/06/22 15:20:00 EDT, Supply, 169, cm, 03/05/22 19:45:00 EDT, Height, 104.9, kg, 03/04/22 2:58:00 EDT, Dry W... Start Date: 03/06/22 Status: Ordered PARoxetine 40 mg oral tablet 40 mg, 1, tablet, By Mouth, Daily, Refills 0, Maintenance, 01/11/22 9:43:00 EST Start Date: 01/11/22 Status: Ordered Precision Extra [...] EDT, Height Start Date: 07/22/21 Status: Ordered silver topical gel See Instructions, Topically Daily cover with appropriate dressing after application clean wound prior to application, # 45 mL, 0 Refills, Maintenance, 03/09/22 14:21:00 EDT, Gel, [facility], Partial fill upon patient request if the p... Start Date: 03/09/22 Status: Ordered traZODone 300 mg oral tablet 1 tablet = 300 mg, By Mouth, Daily at bedtime Start Date: 03/03/22 Status: Ordered Trulicity Pen 3 mg/0.5 mL subcutaneous solution See Instructions, ADMINISTER 0.5 ML UNDER THE SKIN EVERY WEEK. ROTATE INJECTION SITES, # 2 mL, 11 Refills, 03/09/22 14:22:00 EDT, [facility]., 169, cm, 03/09/22 13:46:00 EDT, Height, 104.9, kg, 03/04/22 2:58:00 EDT, Dry Weight Start Date: 03/09/22 Status: Ordered Tylenol Extra Strength 500 mg oral tablet 2 tablet = 1,000 mg, By Mouth, Every 6 hours, prn pain, # 100 tablet, 0 Refills, Maintenance, 03/16/22 14:30:00 EDT, [facility], Partial fill upon patient request if the prescription is for a schedule II opioid drug., 169, cm, 03/16/22... Start Date: 03/16/22 Status: Ordered Ventolin HFA 108 mcg/inh inhalation aerosol with adapter 1 puffs, Inhalation, 4 times a day, PRN NEEDED FOR WHEEZING, # 18 Gm, 0 Refills, [facility] #[id number], 170, cm, 01/11/22 9:39:00 EST, Height Start Date: 01/12/22 Status: Ordered Problem List Condition Effective Dates Status Health Status Inform ant Abdominal pain(Confirmed) Active Storey's cyst of knee(Confirmed) Active Cholecystectomy(Confirmed) Active Diabetes mellitus(Confirmed) 07/2007 Active Diabetic peripheral neuropathy(Confirmed) Active Diabetic retinopathy - next due (Confirmed) 2016 Active Reading difficulty(Confirmed) Active Dyslipidemia(Confirmed) Active Hypertension(Confirmed) Active Microalbuminuria(Confirmed) Active Morbid obesity(Confirmed) Active Obese class II(Confirmed) Active [facility] [phone]/Health [facility] active care coordination(Confirmed) Active Peripheral vascular disease(Confirmed) Active Umbilical hernia(Confirmed) Active 1per 2016 and 2018 [facility] notes Social History Social History Type Response Smoking Status Never (less than 100 in lifetime) entered on: 09/03/19 Sex 1per pt
--- OUTSIDE RECORDS SUMMARY | 2023-02-20 15:11 | XMS_ITS | Continuity of Care Document ---
Author Name Unknown Organization [facility] Address [address] [place] [address]- Care Team Providers Care Cooky Packer Name Role Phone Olivier MOSHER, Allegra Primary Care Physician [facility] Date[facility]): 11/[facility]/22 - 12/30/22 [facility] [address] [place] [id number] Allergies, Adverse Reactions, Alerts Substance Reaction Severity Status ibuprofen ABD PAIN Active morphine Vomiting and itchy Active traMADol Itchy, Hives Active Immunizations Given and Recorded Vaccine Date Status Refusal Reason SARS-CoV-2 mRNA ([id number]) vax 02/22/22 Recorded SARS-CoV-2 (COVID-19) mRNA BNT-162b2 [...] Note: VIS GIVEN-DATED 05/30/11 2Result Comment: LOT [id number] EXP 04 MAY 2010 3Admin Note: VIS [...] 04/24/22 9:05:00 EDT, Route to Pharmacy Electronically, [facility], Partial fill upon patient request if the prescription is for a schedule II opio... Start Date: 04/24/22 Status: Ordered ammonium lactate 5% topical lotion 1 application, Topically, 2 times a day, # 240 Gm, 0 Refills, Maintenance, 05/01/22 12:34:00 EDT, Lotion, [facility]/pharmacy #[id number], Partial fill upon patient request if the prescription is for a schedule II opioid drug., 1 application Topically 2 times a da... Start Date: 05/01/22 Stop Date: 05/31/22 Status: Ordered aspirin 81 mg oral delayed release tablet 81 mg, By Mouth, Daily, # 30 tablet, Refills 2, Tot. Refills 2, Maintenance, 12/25/22 11:05:00 EST,Route to Pharmacy Electronically, [facility]/pharmacy #[id number], Partial fill upon patient request if the prescription is for a schedule II opioid drug., 169, cm,... Start Date: 12/25/22 Stop Date: 03/25/23 Status: Ordered atorvastatin 40 mg oral tablet 1 tablet = 40 mg, By Mouth, Daily, # 90 tablet, 2 Refills, Maintenance, 04/24/22 9:41:00 EDT, Tablet, [facility], Partial fill upon patient request if [...] 07/26/22 16:13:00 EDT, Route to Pharmacy Electronically, [facility]/pharmacy #[id number], Partial fill upon patient request if the pres... Start Date: 07/26/22 Stop Date: 01/22/23 Status: Ordered carvedilol 25 mg oral tablet 25 mg, 1, tablet, By Mouth, 2 times a day, # 60 tablet, Refills 2, Tot. Refills 2, Maintenance, 01/22/23 16:13:00 EDT, Route to Pharmacy Electronically, [facility]/pharmacy #[id number], Partial fill upon patient request if the prescription is for a schedule II opi... Start Date: 01/22/23 Stop Date: 04/22/23 Status: Ordered Colace sodium 100 mg oral capsule 100 mg, 1, capsule, By Mouth, 2 times a day, PRN, # 60 capsule, Refills 0, Tot. Refills 0, Maintenance, for constipation, 03/16/22 14:30:00 EDT, Route to Pharmacy Electronically, [facility], Partial fill upon patient request if [...] 0 Refills, Maintenance, 09/21/22 11:57:00 EST, Tablet, [facility]/pharmacy #[id number], Partial fill upon patient request [...] 10/16/22 10:25:00 EST, Route to Pharmacy Electronically, [facility] #[id number], Partial fill upon patientrequest if the prescription [...] each, 0 Refills, Maintenance, 01/03/23 15:48:00 EST, [facility]/pharmacy #[id number], Partial fill upon patient request if the prescription is for a schedule II opioid drug., 169, cm, 11/28/22... Start Date: 01/03/23 Stop Date: 02/02/23 Status: Ordered Lantus Solostar Pen 100 units/mL subcutaneous solution See Instructions, Subcutaneous Injection, for 30 days, 25 units sc bid dx E11.9, # 3 each, 0 Refills, Hard Stop 01/03/23 15:48:00 EST, 12/04/22 15:48:00 EST, [facility] #[id number], Partial fill upon patient request if the prescription is for a schedule I... Start Date: 12/04/22 Stop Date: 01/03/23 Status: Ordered Lasix 20 mg oral tablet 1, capsule, By Mouth, Once, take one pill daily for 3 days, # 3 tablet, Refills 0, Tot. Refills 0, Soft Stop, 09/20/22 11:19:00 EST, Route to Pharmacy Electronically, [id number], Partial fillupon patient request if the [...] 11/30/22 8:10:00 EST, Route to Pharmacy Electronically, [id number], Partial [...] tablet, 0 Refills, Maintenance, 11/28/22 13:29:00 EST, [id number], Partial fill upon patient request if the prescription is for a schedule II opioid drug., 169,... Start Date: 11/28/22 Status: Ordered oxyCODONE 10 mg oral tablet 1 tablet = 10 mg, By Mouth, Every 12 hours, PRN Pain , Moderate, # 30 tablet, 0 Refills, Maintenance, 12/15/22 18:43:00 EST, [facility]/pharmacy #[id number], Partial fill upon patient request if the prescription is for a schedule II opioid drug., 169, cm, 11/28/22... Start Date: 12/15/22 Status: Ordered PARoxetine 40 mg oral tablet 40 mg, 1, tablet, By Mouth, Daily, Refills 0, Maintenance, 01/11/22 9:43:00 EST Start Date: 01/11/22 Status: Ordered Pen [place], 31 G x 5 mm BD Ultra [...] 04/24/22 9:03:00 EDT, Route to Pharmacy Electronically, [facility], Partial fill upon patient request if [...] 0 Refills, Maintenance, 11/22/22 12:11:00 EST, Ointment, [id number], Partial fill upon patient request [...] 2 Refills, Maintenance, 10/16/22 13:14:00 EST, Solution, [facility]/pharmacy #[id number], Partial fill upon patient request if the prescription is for a schedule II opioid drug., 169, cm, 10/09/22 8:39... Start Date: 10/16/22 Status: Ordered Ventolin HFA 108 mcg/inh inhalation aerosol with adapter 1 puffs, Inhalation, Every 4 hours, PRN NEEDED FOR WHEEZING, # 18 Gm, 0 Refills, Maintenance, 12/15/22 18:28:00 EST, [facility]/pharmacy #[id number], 169, cm, 11/28/22 9:17:00 EST, Height, [...] Active Morbid obesity Confirmed Active BHN/CCA/CP- [facility] [phone] group home active care coordination Confirmed Active Peripheral vascular disease - right SFA angioplasty/right great toe amputation 2021 Confirmed Active Severe obesity (BMI 35.0-39.9) with comorbidity Confirmed Active Umbilical hernia Confirmed Active 1per 2016 and 2019 [facility] notes Social History Social History Type Response Smoking Status Never (less than 100 in lifetime) entered on: 09/03/19 Sex 1per pt Patient Care team information Care Team Personnel Name: Allegra Aguayo MD Position: [facility] Resident Member Role: PCP Address: Address: [address] [place] [address] Name: Vera Locke RN Position: S RN Member Role: Primary Care Nurse Name: Baljit Martínez RN Position: S RN Member Role: Primary Care Nurse Name: Sabine Guthrie RN Position: S RN Member Role: Primary Care Nurse Name: Aditi Hernandez RN Position: S RN Member Role: Primary Care Nurse Name: Piyush Moore RN Position: [facility] RN Member Role: Primary Care Nurse Name: Mis Vences RN Position: S RN Member Role: Primary Care Nurse Name: Angie Lopez RN Position: S RN Member Role: Primary Care Nurse Name: Lizzie Estrada RN Position: [facility] Onco RN Member Role: Primary Care Nurse Care Team Related Persons Name: MIKEY SEAY Address: home [address] [address] Name: MIKEY AYALA Address: home [address] [place] [address] Name: TANIA COPPOLA Address: home [address] [place] [id number] Name: TANIA MUÑIZ Address: home [address] [place] [id number]
--- OUTSIDE RECORDS SUMMARY | 2023-02-20 15:11 | XMS_ITS | Continuity of Care Document ---
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 R [id number] Date(s): 08/08/21 - 11/04/21 [facility] [address] [place] [address]- Attending Physician: Not on Staff, Attending MD Referring Physician: Mamie Bahena MD Allergies, Adverse Reactions, Alerts Substance Reaction [...] Note: VIS GIVEN-DATED 05/30/11 2Result Comment: LOT [id number] EXP 04 MAY 2010 3Admin Note: VIS [...] EDT, Height Start Date: 07/21/21 Status: Ordered Alcohol Wipes See Instructions, # [...] tablet, Refills 4, Tot. Refills 4, Maintenance, 07/20/21 9:24:00 EDT, Route to Pharmacy Electronically, [facility] #[id number], 170, cm, 07/20/21 8:57:00 EDT, Height Start Date: 07/20/21 Stop Date: 10/13/22 Status: Ordered atorvastatin 10 mg oral tablet 1 tablet = 10 mg, By Mouth, Daily, # 90 tablet, 1 Refills, Maintenance, 05/05/21 10:09:00 EDT, [facility] #[id number], 170, cm, 12/21/20 9:18:00 EST, Height, 100.5, kg, 05/30/19 9:39:00 EDT, DryWeight Start Date: 05/05/21 Status: Ordered Freestyle Lite Test Strips See Instructions, for 30 days, # 100 each, Refills 3, Tot. Refills 3, Hard Stop 12/09/21 11:18:00 EST, USE TO TEST 3 TIMES DAILY, 08/11/21 11:18:00 EDT, Supply, 170, cm, 07/28/21 10:50:00 EDT, Height Start Date: 08/11/21 Stop Date: 12/09/21 Status: Ordered Freestyle Lite Test Strips See Instructions, # 100 each, Refills 3, Tot. Refills 3, Maintenance, USE TO TEST 3 TIMES DAILY, 12/09/21 11:18:00 EST, Supply, 170, cm, 07/28/21 10:50:00 EDT, Height Start Date: 12/09/21 Stop Date: 04/08/22 Status: Ordered hydrochlorothiazide 25 mg oral tablet 25 mg, 1, tablet, By Mouth, Daily, # 90 tablet, Refills 0, Tot. Refills 0, Maintenance, 07/20/21 9:33:00 EDT, Route to Pharmacy Electronically, [facility] #[id number], Partial fill upon patient request if the prescription is for a schedule II opi... Start Date: 07/20/21 Stop Date: 10/18/21 Status: Ordered Insulin Syringe, BD Ultra-Fine 0.5 cc 31 G x 8 mm (5/16in) See Instructions, # 100 each, Refills 2, Tot. Refills 2, Maintenance, use as directed for Type 2 Diabetes Mellitus to admisiter insulin two times a day. Dx; E11.9, 07/18/21 16:11:00 EDT, Compound, 170, cm, 05/20/21 15:42:00 EDT, Height Start Date: 07/18/21 Stop Date: 10/16/21 Status: Ordered Januvia 100 mg oral tablet 1 tablet, By Mouth, Daily, # 90 tablet, 11 Refills, Maintenance, 10/24/21 9:05:00 EST, [facility] 170, cm, 07/28/21 10:50:00 EDT, Height Start Date: 10/24/21 Status: Ordered Januvia 50 mg oral tablet 1 tablet = 50 mg, By Mouth, Daily, dose decreased, # 30 tablet, 11 Refills, Maintenance, 09/20/21 13:40:00 EST, Tablet, [facility] #[id number], Partial fill upon patient request if the prescription is for a schedule II opioid drug., 170, cm, 07/07... Start Date: 09/20/21 Status: Ordered Lantus Solostar Pen 100 units/mL subcutaneous solution See Instructions, INJECT 45 UNITS UNDER THE SKIN TWICE DAILY., # 24 mL, 0 Refills, 10/21/21 7:36:00EST, [facility] #[id number], dose increase since 07/26, 170, cm, 07/28/21 10:50:00 EDT, Height Start Date: 10/21/21 Status: Ordered lisinopril 40 mg oral tablet 1 tablet = 40 mg, By Mouth, Daily, # 90 tablet, 4 Refills, Maintenance, 07/20/21 9:25:00 EDT, Tablet, [facility] #[id number], 170, cm, 07/20/21 8:57:00 EDT, Height Start Date: 07/20/21 Stop Date: 10/13/22 Status: Ordered Melatonin 5 mg oral tablet 0 Refills, Maintenance, 01/29/19 10:09:09 EDT Start Date: 01/29/19 Status: Ordered NovoLOG 100 units/mL subcutaneous solution See Instructions, 28 units Subcutaneous Infusion 3 times a day before meals dxE11.9, # 48 mL, 11 Refills, Maintenance, 08/26/21 13:13:00 EDT, [facility], Partial fill upon patient request if the prescription is for a schedule II opioid... Start Date: 08/26/21 Status: Ordered OXcarbazepine 300 mg oral tablet TK 1 T PO BID Start Date: 01/29/19 Status: Ordered PARoxetine 40 mg oral tablet TK 1 T PO HS Start Date: 01/29/19 Status: Ordered Pen [place], 31 G x 5 mm BD Ultra Fine III See Instructions, # 150 each, Refills 11, Tot. Refills 11, Maintenance, use to inject insulin up tofive times daily dx e11.9, 10/21/20 15:55:00 EST, Supply, 170, cm, 05/20/20 14:48:00 EDT, Height, 100.5, kg, 05/30/19 9:39:00 EDT, Dry Weight Start Date: 10/21/20 Status: Ordered Pen [place], 31 G x 5 mm BD Ultra Fine III See Instructions, # 300 each, Refills 4, Tot. Refills 4, Maintenance, Use for injection of insulin up to 5 times daily. For type 2 diabetes mellitus., 07/05/21 13:05:00 EDT, if possible please give box rather than bag as patient has difficulty when pe... Start Date: 07/05/21 Stop Date: 09/28/22 Status: Ordered Precision Extra Glucose Meter See [...] EDT, Height Start Date: 07/22/21 Status: Ordered Senna 8.6 mg oral tablet 17.2 mg, 2, tablet, By Mouth, Daily, Refills 0, Maintenance, 06/01/19 9:40:46 EDT, Tablet Start Date: 06/01/19 Status: Ordered traZODone 300 mg oral tablet TK 1 T PO HS Start Date: 01/29/19 Status: Ordered triamcinolone 0.1% topical ointment See Instructions, APPLY TOPICALLY TO THE AFFECTED AREA TWICE DAILY FOR 14 DAYS, # 15 Gm, 0 Refills,[facility] #[id number], 14, APPLY TOPICALLY TO THE AFFECTED AREA TWICE DAILY FOR 14 DAYS, 170,cm, 07/28/21 10:50:00 EDT, Height Start Date: 11/02/21 Status: Ordered Trulicity Pen 1.5 mg/0.5 mL subcutaneous solution See Instructions, ADMINISTER 1.5 MG UNDER THE SKIN EVERY WEEK, # 2 mL, 0 Refills, [facility] #[id number], 170, cm, 07/28/21 10:50:00 EDT, Height Start Date: 09/22/21 Status: Ordered Ventolin HFA 108 mcg/inh inhalation aerosol with adapter 1 puffs, Inhalation, 4 times a day, PRN for wheezing, # 8 Gm, 2 Refills, Maintenance, 09/22/21 11:41:00 EST, Aerosol, [facility] #[id number], Partial fill upon patient request if the prescription is for a schedule II opioid drug., 170, cm, ... Start Date: 09/22/21 Status: Ordered Vraylar 3 mg oral capsule [...] Microalbuminuria(Confirmed) Active Morbid obesity(Confirmed) Active BHN/CCA/CP-Mignon Peters [phone]/Health group home active care coordination(Confirmed) Active Peripheral vascular disease(Confirmed) Active Umbilical hernia(Confirmed) Active 1per 2016 and 2019 [facility] notes Social History Social History Type Response Smoking Status Never (less than 100 in lifetime) entered on: 09/03/19 Sex Female 1per pt
--- OUTSIDE RECORDS SUMMARY | 2023-02-20 15:11 | XMS_ITS | Continuity of Care Document ---
Author Name Unknown Organization [facility] Address [address] [place] [address]- Care Team Providers Care Operating Room Coordinator Name Role Phone Tom Sa DESTINIima Mohsen Primary Care Physici an [facility] Date[facility]s): 01/15[facility]20 - 01/25/20 [facility] [address] [place] [address]- [facility] Attending Physician: Admtr, Ar8 Allergies, Adverse Reactions, Alerts Substance Reaction Severity [...] Note: VIS GIVEN-DATED 05/30/11 2Result Comment: LOT [id number] EXP 04 MAY 2010 3Admin Note: VIS given Medications albuterol 90 mcg/inh inhalation powder 2 puffs, Inhalation, Every 6 hours, PRN as needed, # 1 each, 3 Refills, Maintenance, 09/05/19 10:48:00 EDT, Powder, 2 puffs Inhalation Every 6 hours,PRN:as needed Start Date: 09/05/19 Status: Ordered Alcohol Wipes See Instructions, # 1 pack/packet, Refills 2, Tot. Refills 2, Maintenance, Use as directed to checksugars and administer insulin Four times a day. Diagnosis code E11.9, 10/16/19 6:52:08 EST, Compound, 170, cm, 09/03/19 10:13:50 EDT, Height, 100.5, kg... Start Date: 10/16/19 Status: Ordered amLODIPine 10 mg oral tablet 10 mg, 1, tablet, By Mouth, Daily, # 90 tablet, Refills 3, Tot. Refills 3, Maintenance, 01/29/19 10:06:52 EDT, Route to Pharmacy Electronically, [id number], [id number] Start Date: 01/29/19 Stop Date: 01/24/20 Status: Ordered docusate sodium 100 mg oral capsule 200 mg, 2, capsule, By Mouth, 2 times a day, Refills 0, Maintenance, 06/01/19 9:40:43 EDT Start Date: 06/01/19 Status: Ordered FREESTYLE LITE BLOOD GLUCSTR 50S [...] Strips See Instructions, # 150 each, Refills 5, Tot. Refills 5, Maintenance, use to check bs four times daily and prn for uncontrolled type 2 dm. e11.65, 5x testing, on insulin, 10/16/19 6:52:09 EST, Compound, 170, cm, 09/03/19 10:13:50 EDT, Height, 100.5,... Start Date: 10/16/19 Status: Ordered gabapentin 100 mg oral capsule 100 mg, 1, capsule, By Mouth, 3 times a day, # 90 capsule, Refills 0, Tot. Refills 0, Maintenance, 03/06/19 17:12:53 EDT, Route to Pharmacy Electronically, [id number], [facility] [id number] Start Date: 03/06/19 Status: Ordered insulin glargine 100 u/ml subcutaneous solution See Instructions, 40 units in the MORNING and 40 units AT BEDTIME Subcutaneous Injection dx E11.9 Rotate injection sites, # 60 Doses, 11 Refills, Maintenance, 01/29/19 10:07:31 EDT, Solution Start Date: 01/29/19 Status: Ordered Insulin Syringe, BD Ultra-Fine 0.5 cc 31 G x 8 mm (5/16in) See Instructions, # 150 each, Refills 11, Tot. Refills 11, Maintenance, use as directed for Type 2 Diabetes Mellitus to admisiter insulin four times a day. Dx; E11.9, 05/13/19 13:22:55 EDT, pt was transferred to [facility], all meds left beh... Start Date: 05/13/19 Stop Date: 05/07/20 Status: Ordered lisinopril 40 mg oral tablet 1 tablet = 40 mg, By Mouth, Daily, # 90 tablet, 3 Refills, Maintenance, 01/29/19 10:06:25 EDT, Tablet Start Date: 01/29/19 Stop Date: 01/24/20 Status: Ordered Melatonin 5 mg oral tablet 0 Refills, Maintenance, 01/29/19 10:09:09 EDT Start Date: 01/29/19 Status: Ordered NovoLOG 100 units/mL injectable solution = 20 units, Subcutaneous Infusion, 3 times a day before meals, replaces humalog, # 90 Doses, 11 Refills, Maintenance, 01/29/19 10:07:08 EDT Start Date: 01/29/19 Status: Ordered OXcarbazepine 300 mg oral tablet TK 1 T PO BID Start Date: 01/29/19 Status: Ordered PARoxetine 40 mg oral tablet TK 1 T PO HS Start Date: 01/29/19 Status: Ordered Pen [place], 31 G x 5 mm BD Ultra Fine III See Instructions, # 12 each, Refills 4, Tot. Refills 4, Maintenance, weekly Truicity injection, 01/29/19 10:10:09 EDT, Compound Start Date: 01/29/19 Status: Ordered Senna 8.6 mg oral tablet 17.2 mg, 2, tablet, By Mouth, Daily, Refills 0, Maintenance, 06/01/19 9:40:46 EDT, Tablet Start Date: 06/01/19 Status: Ordered traZODone 300 mg oral tablet TK 1 T PO HS Start Date: 01/29/19 Status: Ordered Trulicity Pen 0.75 mg/0.5 mL subcutaneous solution 0.5 mL = 0.75 mg, Subcutaneous Injection, Every week, # 2.5 mL, 6 Refills, Maintenance, 12/16/19 10:57:00 EST, Solution, [facility] #[id number], 170, cm, 12/16/19 10:11:00 EST, Height, 100.5, kg, 05/30/19 9:39:00 EDT, Dry Weight Start Date: 12/16/19 Status: Ordered Zofran 4 mg oral tablet [...] Hypertension(Confirmed) Active Microalbuminuria(Confirmed) Active Morbid obesity(Confirmed) Active Umbilical hernia(Confirmed) Active 1per 2016 and 2018 [facility] Social History Social History Type Response Smoking Status Never (less than 100 in lifetime) entered on: 09/03/19 Sex Female 1per pt
--- OUTSIDE RECORDS SUMMARY | 2023-02-20 15:11 | XMS_ITS | Continuity of Care Document ---
Author Name Unknown Organization [facility] Adult [facility] Address [address] [place] [address]- Care Team Providers Care Men'S Furnishings Salesperson Name Role Phone Olivier MOSHER, Allegra Primary Care Physician Encounter [facility] Date(s): 11/30/22 - 12/30/22 [facility] [address] [place] [id number] Allergies, Adverse Reactions, Alerts Substance Reaction Severity Status ibuprofen ABD PAIN Active morphine Vomiting and itchy Active traMADol Itchy, Hives Active Immunizations Given and Recorded Vaccine Date Status Refusal Reason SARS-CoV-2 mRNA ([id number]) vax 02/22/22 Recorded SARS-CoV-2 (COVID-19) mRNA BNT-162b2 [...] Note: VIS GIVEN-DATED 05/30/11 2Result Comment: LOT [id number] EXP 04 MAY 2010 3Admin Note: VIS [...] 04/24/22 9:05:00 EDT, Route to Pharmacy Electronically, [facility], Partial fill upon patient request if the prescription is for a schedule II opio... Start Date: 04/24/22 Status: Ordered ammonium lactate 5% topical lotion 1 application, Topically, 2 times a day, # 240 Gm, 0 Refills, Maintenance, 05/01/22 12:34:00 EDT, Lotion, [facility]/pharmacy #[id number], Partial fill upon patient request if the prescription is for a schedule II opioid drug., 1 application Topically 2 times a da... Start Date: 05/01/22 Stop Date: 05/31/22 Status: Ordered aspirin 81 mg oral delayed release tablet 81 mg, By Mouth, Daily, # 30 tablet, Refills 2, Tot. Refills 2, Maintenance, 12/25/22 11:05:00 EST,Route to Pharmacy Electronically, [facility]/pharmacy #[id number], Partial fill upon patient request if the prescription is for a schedule II opioid drug., 169, cm,... Start Date: 12/25/22 Stop Date: 03/25/23 Status: Ordered atorvastatin 40 mg oral tablet 1 tablet = 40 mg, By Mouth, Daily, # 90 tablet, 2 Refills, Maintenance, 04/24/22 9:41:00 EDT, Tablet, [facility], Partial fill upon patient request if the [...] 07/26/22 16:13:00 EDT, Route to Pharmacy Electronically, [facility]/pharmacy #[id number], Partial fill upon patient request if the pres... Start Date: 07/26/22 Stop Date: 01/22/23 Status: Ordered carvedilol 25 mg oral tablet 25 mg, 1, tablet, By Mouth, 2 times a day, # 60 tablet, Refills 2, Tot. Refills 2, Maintenance, 01/22/23 16:13:00 EDT, Route to Pharmacy Electronically, [facility]/pharmacy #[id number], Partial fill upon patient request if the prescription is for a schedule II opi... Start Date: 01/22/23 Stop Date: 04/22/23 Status: Ordered Colace sodium 100 mg oral capsule 100 mg, 1, capsule, By Mouth, 2 times a day, PRN, # 60 capsule, Refills 0, Tot. Refills 0, Maintenance, for constipation, 03/16/22 14:30:00 EDT, Route to Pharmacy Electronically, [facility], Partial fill upon patient request if the [...] 0 Refills, Maintenance, 09/21/22 11:57:00 EST, Tablet, [facility]/pharmacy #[id number], Partial fill upon patient request [...] 10/16/22 10:25:00 EST, Route to Pharmacy Electronically, [facility] #[id number], Partial fill upon patientrequest if the prescription [...] each, 0 Refills, Maintenance, 01/03/23 15:48:00 EST, [facility]/pharmacy #[id number], Partial fill upon patient request [...] tablet, 0 Refills, Maintenance, 12/15/22 18:43:00 EST, [facility]/pharmacy #[id number], Partial fill upon patient request if the prescription is for a schedule II opioid drug., 169, cm, 11/28/22... Start Date: 12/15/22 Status: Ordered PARoxetine 40 mg oral tablet 40 mg, 1, tablet, By Mouth, Daily, Refills 0, Maintenance, 01/11/22 9:43:00 EST Start Date: 01/11/22 Status: Ordered Pen Mullan, 31 G x 5 mm BD Ultra [...] 04/24/22 9:03:00 EDT, Route to Pharmacy Electronically, [facility], Partial fill upon patient request if the [...] 2 Refills, Maintenance, 10/16/22 13:14:00 EST, Solution, [facility]/pharmacy #[id number], Partial fill upon patient request if the prescription is for a schedule II opioid drug., 169, cm, 10/09/22 8:39... Start Date: 10/16/22 Status: Ordered Ventolin HFA 108 mcg/inh inhalation aerosol with adapter 1 puffs, Inhalation, Every 4 hours, PRN NEEDED FOR WHEEZING, # 18 Gm, 0 Refills, Maintenance, 12/15/22 18:28:00 EST, [facility]/pharmacy #[id number], 169, cm, 11/28/22 9:17:00 EST, [...] Active Morbid obesity Confirmed Active BHN/CCA/CP- [place]le [phone] retirement active care coordination Confirmed Active Peripheral vascular disease - right SFA angioplasty/right great toe amputation 2021 Confirmed Active Severe obesity (BMI 35.0-39.9) with comorbidity Confirmed Active Umbilical hernia Confirmed Active 1per 2016 and 2019 [facility] notes Social History Social History Type Response Smoking Status Never (less than 100 in lifetime) entered on: 09/03/19 Sex 1per pt Patient Care team information Care Team Personnel Name: Allegra Aguayo MD Position: [facility] Resident Member Role: PCP Address: Address: [address] [place] [address] Name: Vera Locke RN Position: S RN Member Role: Primary Care Nurse Name: Baljit Martínez RN Position: S RN Member Role: Primary Care Nurse Name: Sabine Guthrie RN Position: S RN Member Role: Primary Care Nurse Name: Aditi Hernandez RN Position: S RN Member Role: Primary Care Nurse Name: Piyush Moore RN Position: [facility] RN Member Role: Primary Care Nurse Name: Mis Vences RN Position: S RN Member Role: Primary Care Nurse Name: Angie Lopez RN Position: S RN Member Role: Primary Care Nurse Name: Lizzie Estrada RN Position: [facility] Onco RN Member Role: Primary Care Nurse Care Team Related Persons Name: MIKEY SEAY Address: home [address] [address] Name: MIKEY AYALA Address: home [address] [place] [address] Name: TANIA COPPOLA Address: home [address] [place] [address] Name: TANIA UMÑIZ Address: home [address] [place] [id number]
--- OUTSIDE RECORDS SUMMARY | 2023-02-20 15:11 | XMS_ITS | Continuity of Care Document ---
Author Name Unknown Organization [facility] Adult [facility] Address [address] [place] [address]- Care Team Providers Care Supervisor Model Making Name Role Phone Josef MOSHER, Mamie Patterson Primary Care Physician En[place] [facility] [place] Date(s): 12/19/21 - 02/01/22 [facility] [address], [place] [address] Attending Physician: Luis F Rowland MD Admitting Physician: Luis F Rowland MD Allergies, Adverse Reactions, Alerts Substance Reaction [...] Note: VIS GIVEN-DATED 05/30/11 2Result Comment: LOT [id number] EXP 04 MAY 2010 3Admin Note: VIS [...] 12/29/21 10:02:00 EST, Route to Pharmacy Electronically, [facility] #[id number], 170, cm, 07/28/21 10:50:00 EDT, Height Start Date: 12/29/21 Stop Date: 03/24/23 Status: Ordered atorvastatin 10 mg oral tablet 1 tablet, By Mouth, Daily, # 90 tablet, 1 Refills, Maintenance, 12/13/21 19:21:00 EST, [facility] #[id number], 170, cm, 07/28/21 10:50:00 EDT, Height Start [...] 12/29/21 10:02:00 EST, Route to Pharmacy Electronically, [facility] #[id number], Partial fill upon patientrequest if the prescription [...] tablet, 11 Refills, Maintenance, 12/29/21 10:02:00 EST, [facility] #[id number], resent - not recvd, 170, cm, 07/28/21 10:50:00 EDT, Height Start Date: 12/29/21 Status: Ordered Lantus 100 u/ml subcutaneous solution = 45 units, Subcutaneous Infusion, 2 times a day, changed from PEN, pt requesting vials, # 12 mL, 11 Refills, Maintenance, 01/11/22 9:45:00 EST, [facility] #[id number], Partial fill upon patientrequest if the prescription is for a schedule II op... Start Date: 01/11/22 Status: Ordered lidocaine 5% topical ointment 1 application, Topically, 3 times a day, wash hands thoroughly after application, prn pain, # 50 Gm, 0 Refills, Maintenance, 01/11/22 9:49:00 EST, Ointment, [facility] #[id number], Partial fill upon patient request if the prescription is for a sc... Start Date: 01/11/22 Status: Ordered lisinopril 40 mg oral tablet 1 tablet = 40 mg, By Mouth, Daily, # 90 tablet, 4 Refills, Maintenance, 07/20/21 9:25:00 EDT, Tablet, [facility] #[id number], 170, cm, 07/20/21 8:57:00 EDT, Height Start Date: 07/20/21 Stop Date: 10/13/22 Status: Ordered NovoLOG 100 units/mL injectable solution See Instructions, ADMINISTER 20 UNITS UNDER THE SKIN THREE TIMES DAILY BEFORE MEALS 90 DAY SUPPLY REQUESTED, # 30 mL, 2 Refills, [facility] #[id number], 170, cm, 07/28/21 10:50:00 EDT, Height Start [...] INJECTION SITES, # 2 mL, 0 Refills, [facility] #[id number], 170, cm, 07/28/21 10:50:00 EDT, Height Start Date: 01/10/22 Status: Ordered Ventolin HFA 108 mcg/inh inhalation aerosol with adapter 1 puffs, Inhalation, 4 times a day, PRN NEEDED FOR WHEEZING, # 18 Gm, 0 Refills, [facility] #[id number], 170, cm, 01/11/22 9:39:00 EST, Height Start Date: 01/12/22 Status: Ordered Problem List Condition Effective Dates Status Health Status Inform ant Abdominal pain(Confirmed) Active Storey's cyst of knee(Confirmed) Active Cholecystectomy(Confirmed) Active Diabetes mellitus(Confirmed) 07/2007 Active Diabetic peripheral neuropathy(Confirmed) Active Diabetic retinopathy - next due (Confirmed) 2016 Active Reading difficulty(Confirmed) Active Dyslipidemia(Confirmed) Active Hypertension(Confirmed) Active Microalbuminuria(Confirmed) Active Morbid obesity(Confirmed) Active Obese class I(Confirmed) Active BHN/CCA/AUDRA-Mignon Peters [phone]/Health fpc active care coordination(Confirmed) Active Peripheral vascular disease(Confirmed) Active Umbilical hernia(Confirmed) Active 1per 2017 and 2018 [facility] notes Social History Social History Type Response Smoking Status Never (less than 100 in lifetime) entered on: 09/03/19 Sex Female 1per pt
--- OUTSIDE RECORDS SUMMARY | 2023-02-20 15:11 | XMS_ITS | Continuity of Care Document ---
Author Name Unknown Organization [facility] Address [address] [place] [address]- Care Team Providers Care Building Services Coordinator Name Role Phone Olivier MOSHER, Allegra Primary Care Physician [place] [facility] [place] [facility] [address], [place] [address] Allergies, Adverse Reactions, Alerts Substance Reaction Severity Status ibuprofen ABD PAIN Active morphine Vomiting and itchy Active traMADol Itchy, Hives Active Immunizations Given and Recorded Vaccine Date Status Refusal Reason SARS-CoV-2 mRNA ([id number]) vax 02/22/22 Recorded SARS-CoV-2 (COVID-19) mRNA BNT-162b2 [...] Note: VIS GIVEN-DATED 05/30/11 2Result Comment: LOT [id number] EXP 04 MAY 2010 3Admin Note: VIS [...] Refills 5, Maintenance, dx DM, on insulin, 05/30/22 10:58:00 EDT, Supply, 169, cm, 05/30/22 10:53:00 EDT, Height, 104.9, kg, 03/04/22 2:58:00 EDT, Dry Weight Start Date: 05/30/22 Status: Ordered amLODIPine 10 mg oral tablet 10 mg, 1, tablet, By Mouth, Daily, # 30 tablet, Refills 5, Tot. Refills 5, Maintenance, 04/24/22 9:05:00 EDT, Route to Pharmacy Electronically, [facility], Partial fill upon patient request if the prescription is for a schedule II opio... Start Date: 04/24/22 Status: Ordered ammonium lactate 5% topical lotion 1 application, Topically, 2 times a day, # 240 Gm, 0 Refills, Maintenance, 05/01/22 12:34:00 EDT, Lotion, [facility]/pharmacy #[id number], Partial fill upon patient request if the prescription is for a schedule II opioid drug., 1 application Topically 2 times a da... Start Date: 05/01/22 Stop Date: 05/31/22 Status: Ordered aspirin 81 mg oral delayed release tablet 81 mg, By Mouth, Daily, # 30 tablet, Refills 5, Tot. Refills 5, Maintenance, 05/13/22 16:40:00 EDT,Route to Pharmacy Electronically, [facility], Partial fill upon patient request if the prescription is for a schedule II opioid drug.,... Start Date: 05/13/22 Stop Date: 11/09/22 Status: Ordered atorvastatin 40 mg oral tablet 1 tablet = 40 mg, By Mouth, Daily, # 90 tablet, 2 Refills, Maintenance, 04/24/22 9:41:00 EDT, Tablet, [facility], Partial fill upon patient request if [...] 05/13/22 16:40:00 EDT, Route to Pharmacy Electronically, [facility], Partial fill upon patient request if the prescription is for a schedul... Start Date: 05/13/22 Stop Date: 11/09/22 Status: Ordered Colace sodium 100 mg oral capsule 100 mg, 1, capsule, By Mouth, 2 times a day, PRN, # 60 capsule, Refills 0, Tot. Refills 0, Maintenance, for constipation, 03/16/22 14:30:00 EDT, Route to Pharmacy Electronically, [facility], Partial fill upon patient request if [...] 04/24/22 9:02:00 EDT, Route to Pharmacy Electronically, [facility], Partial fill upon patient request if the prescription is for a schedule II opio... Start Date: 04/24/22 Status: Ordered insulin aspart 100 units/mL subcutaneous solution = 20 units, Subcutaneous Injection, 3 times a day before meals, # 10 mL, 11 Refills, Maintenance, 03/10/22 9:06:00 EDT, Solution, [facility] #[id number], Partial fill upon patient request if theprescription [...] Daily, # 90 tablet, 1 Refills, Maintenance, 05/15/22 16:38:00 EDT, [facility]/pharmacy#[id number], resent - not recvd, 169, cm, 05/01/22 10:56:00 EDT, Height, 104.9, kg, 03/04/22 2:58:00 EDT,Dry Weight Start Date: 05/15/22 Status: Ordered Lantus 100 u/ml subcutaneous solution = 30 units, Subcutaneous Injection, 2 times a day, # 10 mL, 5 Refills, Maintenance, 03/10/22 9:05:00 EDT, Solution, [facility] #[id number], Partial fill upon patient request if the prescription is for a schedule II opioid drug., 169, cm, 03/09/22... Start Date: 03/10/22 Status: Ordered lisinopril 10 mg oral tablet 10 mg, 1, tablet, By Mouth, Daily, # 30 tablet, Refills 4, Tot. Refills 4, Maintenance, 04/24/22 9:41:00 EDT, Route to Pharmacy Electronically, [facility], Partial fill upon patient request if [...] tablet, Refills 0, Tot. Refills 0, Acute 06/08/22 14:50:00 EDT, as needed for pain, 06/01/22 14:50:00 EDT, [id number] Partial fill upon patient... Start Date: 06/01/22 Stop Date: 06/08/22 Status: Ordered PARoxetine 40 mg oral tablet 40 mg, 1, tablet, By Mouth, Daily, Refills 0, Maintenance, 01/11/22 9:43:00 EST Start Date: 01/11/22 Status: Ordered Plavix 75 mg oral tablet 75 mg, 1, tablet, By Mouth, Daily, # 30 tablet, Refills 5, Tot. Refills 5, Maintenance, 04/24/22 9:03:00 EDT, Route to Pharmacy Electronically, [facility], Partial fill upon patient request if [...] 0 Refills, Maintenance, 04/18/22 9:51:00 EDT, Aerosol, [facility], Partial fill upon patient request if [...] 0 Refills, Maintenance, 03/09/22 14:21:00 EDT, Gel, [facility], Partial fill upon patient request if the p... Start Date: 03/09/22 Status: Ordered traZODone 300 mg oral tablet 1 tablet = 300 mg, By Mouth, Daily at bedtime Start Date: 03/03/22 Status: Ordered Trulicity Pen 3 mg/0.5 mL subcutaneous solution See Instructions, ADMINISTER 0.5 ML UNDER THE SKIN EVERY WEEK. ROTATE INJECTION SITES, # 2 mL, 11 Refills, 03/09/22 14:22:00 EDT, [facility]., 169, cm, 03/09/22 13:46:00 EDT, Height, 104.9, kg, 03/04/22 2:58:00 EDT, Dry Weight Start Date: 03/09/22 Status: Ordered Tylenol 8 Hour 650 mg oral tablet, extended release 2 tablet = 1,300 mg, By Mouth, Every 8 hours, PRN as needed for pain, # 24 tablet, 0 Refills, Maintenance, 04/24/22 9:43:00 EDT, ER Tablet, [facility], Partial fill upon patient request if the prescription is for a schedule II opioid d... Start Date: 04/24/22 Status: Ordered Ventolin HFA 108 mcg/inh inhalation aerosol with adapter 2 puffs, Inhalation, Every 6 hours, PRN Wheezing/Shortness of Breath, # 8 Gm, 1 Refills, Maintenance, 05/30/22 10:56:00 EDT, [facility], Partial fill upon patient request if the prescription is for a schedule II opioid drug., 169, cm,... Start Date: 05/30/22 Status: Ordered Problem List Condition Effective Dates Status Health Status Inform ant Abdominal pain(Confirmed) Active Storey's cyst of knee(Confirmed) Active Cholecystectomy(Confirmed) Active Diabetes mellitus(Confirmed) 07/2007 Active Diabetic peripheral neuropathy(Confirmed) Active Diabetic retinopathy - next due (Confirmed) 2016 Active Reading difficulty(Confirmed) Active Dyslipidemia(Confirmed) Active Hypertension(Confirmed) Active Microalbuminuria(Confirmed) Active Morbid obesity(Confirmed) Active Obese class II(Confirmed) Active BHN/CCA/Luis Felipe Peters [phone]/Health detention active care coordination(Confirmed) Active Peripheral vascular disease(Confirmed) Active Uncontrolled type 1 diabetes mellitus with hyperglycemia, with long-term current use of insulin(Confirmed) Active Umbilical hernia(Confirmed) Active 1per 2016 and 2018 [facility] notes Social History Social History Type Response Smoking Status Never (less than 100 in lifetime) entered on: 09/03/19 Sex 1per pt
--- OUTSIDE RECORDS SUMMARY | 2023-02-20 15:11 | XMS_ITS | Continuity of Care Document ---
Author Name Unknown Organization [facility] Address [address] [place] [address]- Care Team Providers Care Computer Support Technician Name Role Phone Josef OMSHER, Mamie Patterson Primary Care Physician Encounter [facility] [place] Date(s): 07/20/21 - 09/10/21 [facility] [address] [place] [address]- Attending Physician: Not on Staff, Attending MD [...] Note: VIS GIVEN-DATED 05/30/11 2Result Comment: LOT [id number] EXP 04 MAY 2010 3Admin Note: VIS [...] EDT, Height Start Date: 07/21/21 Status: Ordered albuterol 90 mcg/inh inhalation powder 2 puffs, Inhalation, Every 6 hours, PRN as needed, # 1 each, 11 Refills, Maintenance, 07/18/21 15:05:00 EDT, [facility] Lost her inhailer, Will need a refill today., 2 puffs Inhalation Every 6 hours,PRN:as needed, 170,... Start Date: 07/18/21 Status: Ordered Alcohol Wipes See Instructions, # [...] 07/20/21 9:24:00 EDT, Route to Pharmacy Electronically, [facility] #[id number], 170, cm, 07/20/21 8:57:00 EDT, Height Start Date: 07/20/21 Stop Date: 10/13/22 Status: Ordered atorvastatin 10 mg oral tablet 1 tablet = 10 mg, By Mouth, Daily, # 90 tablet, 1 Refills, Maintenance, 05/05/21 10:09:00 EDT, [facility] #[id number], 170, cm, 12/21/20 9:18:00 EST, Height, 100.5, kg, 05/30/19 9:39:00 EDT, DryWeight Start Date: 05/05/21 Status: Ordered Freestyle Lite Test Strips See Instructions, # 100 each, Refills 3, Tot. Refills 3, Maintenance, USE TO TEST 3 TIMES DAILY, 08/11/21 11:18:00 EDT, Supply, 170, cm, 07/28/21 10:50:00 EDT, Height Start Date: 08/11/21 Stop Date: 12/09/21 Status: Ordered hydrochlorothiazide 25 mg oral tablet 25 mg, 1, tablet, By Mouth, Daily, # 90 tablet, Refills 0, Tot. Refills 0, Maintenance, 07/20/21 9:33:00 EDT, Route to Pharmacy Electronically, [facility] #[id number], Partial fill upon patient request if the prescription is for a schedule II opi... Start Date: 07/20/21 Stop Date: 10/18/21 Status: Ordered insulin glargine 100 units/mL subcutaneous solution See Instructions, Subcutaneous Infusion Daily 45 units sc twice daily dx E11.9, # 12 mL, 11 Refills, Maintenance, 07/28/21 11:33:00 EDT, [facility], Partial fill upon patient request if the prescription is for a schedule II opioid drug... Start Date: 07/28/21 Status: Ordered Insulin Syringe, BD Ultra-Fine 0.5 [...] Daily, # 90 tablet, 11 Refills, Maintenance, 06/21/21 14:39:00 EDT, [facility] #[id number], 170, cm, 05/20/21 15:42:00 EDT, Height Start Date: 06/21/21 Status: Ordered lisinopril 40 mg oral tablet 1 tablet = 40 mg, By Mouth, Daily, # 90 tablet, 4 Refills, Maintenance, 07/20/21 9:25:00 EDT, Tablet, [facility] #[id number], 170, cm, 07/20/21 8:57:00 EDT, Height Start Date: 07/20/21 Stop Date: 10/13/22 Status: Ordered Melatonin 5 mg oral tablet 0 Refills, Maintenance, 01/29/19 10:09:09 EDT Start Date: 01/29/19 Status: Ordered NovoLOG 100 units/mL subcutaneous solution See Instructions, 28 units Subcutaneous Infusion 3 times a day before meals dxE11.9, # 48 mL, 11 Refills, Maintenance, 08/26/21 13:13:00 EDT, [facility], Partial fill upon patient request if the prescription is for a schedule II opioid... Start Date: 08/26/21 Status: Ordered OXcarbazepine 300 mg oral tablet TK 1 T PO BID Start Date: 01/29/19 Status: Ordered PARoxetine 40 mg oral tablet TK 1 T PO HS Start Date: 01/29/19 Status: Ordered Pen [place], 31 G x 5 mm BD Ultra Fine III See Instructions, # 150 each, Refills 11, Tot. Refills 11, Maintenance, use to inject insulin up tofive times daily dx e11.9, 10/21/20 15:55:00 EST, Supply, 170, cm, 05/20/20 14:48:00 EDT, Height, 100.5, kg, 05/30/19 9:39:00 EDT, Dry Weight Start Date: 10/21/20 Status: Ordered Pen [place], 31 G x 5 mm BD Ultra [...] 90 mcg/inh inhalation aerosol 1 puffs, Inhalation, 4 times a day, PRN as needed for wheezing, # 6.7 Gm, 11 Refills, Maintenance, 07/18/21 15:06:00 EDT, Aerosol, [facility] Partial fill upon patient request if theprescription is for a schedule II opioid drug., 1 p... Start Date: 07/18/21 Status: Ordered Senna 8.6 mg oral tablet 17.2 mg, 2, tablet, By Mouth, Daily, Refills 0, Maintenance, 06/01/19 9:40:46 EDT, Tablet Start Date: 06/01/19 Status: Ordered traZODone 300 mg oral tablet TK 1 T PO HS Start Date: 01/29/19 Status: Ordered Trulicity Pen 3 mg/0.5 mL subcutaneous solution 0.5 mL = 3 mg, Subcutaneous Injection, Every week, rotate injection sites, dose increased, # 2 mL, 11 Refills, Maintenance, 07/28/21 10:54:00 EDT, Solution, [facility] Partial fill upon patient request if the prescription is for a vignesh... Start Date: 07/28/21 Status: Ordered Vraylar 3 mg oral capsule [...] Hypertension(Confirmed) Active Microalbuminuria(Confirmed) Active Morbid obesity(Confirmed) Active BHN/CCA/AUDRA-Mignon Peters [phone]/Health detention active care coordination(Confirmed) Active Peripheral vascular disease(Confirmed) Active Umbilical hernia(Confirmed) Active 1per [address] [facility] notes Social History Social History Type Response Smoking Status Never (less than 100 in lifetime) entered on: 09/03/19 Sex Female 1per pt
--- OUTSIDE RECORDS SUMMARY | 2023-02-20 15:11 | XMS_ITS | Continuity of Care Document ---
Author Name Unknown Organization [facility] Address [address] [place] [address]- Care Team Providers Care Blanket Binder Name Role Phone Josef MOSHER, Mamie Patterson Primary Care Physician Encounter [facility] [place] Date(s): 05/06/21 - 07/23/21 [facility] [address], [place] [address] Attending Physician: Not on Staff, Attending MD Allergies, Adverse Reactions, Alerts Substance Reaction Severity Status ibuprofen ABD PAIN Active morphine Vomiting and itchy Active traMADol Itchy, Hives Active Immunizations Given and Recorded Vaccine Date Status Refusal Reason SARS-CoV-2 (COVID-19) mRNA BNT-162b2 vac 07/20/21 Given [...] Note: VIS GIVEN-DATED 05/30/11 2Result Comment: LOT [id number] EXP 04 MAY 2010 3Admin Note: VIS [...] 11 Refills, Maintenance, 07/18/21 15:05:00 EDT, Powder, [facility], Patient Lost her inhailer, Will need [...] 07/20/21 9:24:00 EDT, Route to Pharmacy Electronically, [facility] #[id number], 170, cm, 07/20/21 8:57:00 EDT, Height Start Date: 07/20/21 Stop Date: 10/13/22 Status: Ordered atorvastatin 10 mg oral tablet 1 tablet = 10 mg, By Mouth, Daily, # 90 tablet, 1 Refills, Maintenance, 05/05/21 10:09:00 EDT, [facility] #[id number], 170, cm, 12/21/20 9:18:00 EST, Height, 100.5, kg, 05/30/19 9:39:00 EDT, DryWeight Start Date: 05/05/21 Status: Ordered hydrochlorothiazide 25 mg oral tablet 25 mg, 1, tablet, By Mouth, Daily, # 90 tablet, Refills 0, Tot. Refills 0, Maintenance, 07/20/21 9:33:00 EDT, [id number], Partial fill upon patient request if the prescription is for a schedule II opi... Start Date: 07/20/21 Stop Date: 10/18/21 Status: Ordered insulin glargine 100 units/mL subcutaneous solution See Instructions, Subcutaneous Infusion Daily 40 units sc twice daily dx E11.9, # 12 mL, 2 Refills,Maintenance, 07/18/21 16:08:00 EDT, [facility], Partial fill upon patient request if the prescription is for a schedule II opioid drug.... Start Date: 07/18/21 Status: Ordered Insulin Syringe, BD Ultra-Fine 0.5 [...] tablet, 11 Refills, Maintenance, 06/21/21 14:39:00 EDT, [facility] #[id number], 170, cm, 05/20/21 15:42:00 EDT, Height Start Date: 06/21/21 Status: Ordered lisinopril 40 mg oral tablet 1 tablet = 40 mg, By Mouth, Daily, # 90 tablet, 4 Refills, Maintenance, 07/20/21 9:25:00 EDT, Tablet, [id number], 170, cm, 07/20/21 8:57:00 EDT, Height Start Date: 07/20/21 Stop Date: 10/13/22 Status: Ordered Melatonin 5 mg oral tablet 0 Refills, Maintenance, 01/29/19 10:09:09 EDT Start Date: 01/29/19 Status: Ordered NovoLOG FlexPen 100 units/mL injectable solution See Instructions, INJECT 20 UNITS INTO SKIN THREE TIMES DAILY BEFORE A MEAL, # 48 mL, 11 Refills, Maintenance, [facility] #[id number], 170, cm, 05/20/21 15:42:00 EDT, Height Start Date: 06/22/21 Status: Ordered OXcarbazepine 300 mg oral tablet TK 1 T PO BID Start Date: 01/29/19 Status: Ordered PARoxetine 40 mg oral tablet TK 1 T PO HS Start Date: 01/29/19 Status: Ordered Pen [place], 31 G x 5 mm BD Ultra Fine III See Instructions, # 150 each, Refills 11, Tot. Refills 11, Maintenance, use to inject insulin up tofive times daily dx e11.9, 10/21/20 15:55:00 EST, Supply, 170, cm, 05/20/20 14:48:00 EDT, Height, 100.5, kg, 05/30/19 9:39:00 EDT, Dry Weight Start Date: 10/21/20 Status: Ordered Pen [place], 31 G x 5 mm BD Ultra [...] 11 Refills, Maintenance, 07/18/21 15:06:00 EDT, Aerosol, [facility], Partial fill upon patient request if theprescription [...] 1.5 mg/0.5 mL subcutaneous solution See Instructions, resent ADMINISTER 1.5 MG UNDER THE SKIN EVERY WEEK, # 2 mL, 5 Refills, 07/08/21 9:33:00 EDT, [facility] #[id number], 170, cm, 05/20/21 15:42:00 EDT, Height Start Date: 07/08/21 Status: Ordered Vraylar 3 mg oral capsule [...] Microalbuminuria(Confirmed) Active Morbid obesity(Confirmed) Active BHN/CCA/AUDRA-Mignon Peters [phone]/Health correction active care coordination(Confirmed) Active Peripheral vascular disease(Confirmed) Active Umbilical hernia(Confirmed) Active 1per 2017 and 2018 [facility] notes Social History Social History Type Response Smoking Status Never (less than 100 in lifetime) entered on: 09/03/19 Sex Female 1per pt
--- OUTSIDE RECORDS SUMMARY | 2023-02-20 15:11 | XMS_ITS | Continuity of Care Document ---
Author Name Unknown Organization [facility] Address [address] [place] [address]- Care Team Providers Care Electrical Engineering Teacher Name Role Phone Josef MOSHER, Mamie Patterson Primary Care Physician Encounter [facility] [place] Date(s): 05/10/21 - 06/09/21 [facility] [address] [place], [place] [address] Allergies, Adverse Reactions, Alerts Substance Reaction Severity [...] Note: VIS GIVEN-DATED 05/30/11 2Result Comment: LOT [id number] EXP 04 MAY 2010 3Admin Note: VIS given Medications albuterol 90 mcg/inh inhalation powder 2 puffs, Inhalation, Every 6 hours, PRN as needed, # 1 each, 11 Refills, Maintenance, 05/23/21 19:37:00 EDT, Powder, [facility] #[id number], Patient Lost her inhailer, Will need a refill today.,2 puffs Inhalation Every 6 hours,PRN:as needed, 170... Start Date: 05/23/21 Status: Ordered Alcohol Wipes See Instructions, # [...] 07/30/20 18:34:00 EDT, Route to Pharmacy Electronically, [facility] #[id number], 170, cm, 05/20/20 14:48:00 EDT, Height, 100.5, kg, 05/30/19 9:39:00 EDT, Dry... Start Date: 07/30/20 Stop Date: 07/25/21 Status: Ordered aspirin 81 mg oral delayed release tablet 81 mg, 1, tablet, By Mouth, Daily, # 30 tablet, Refills 11, Tot. Refills 11, Maintenance, 05/20/20 14:45:00 EDT, Route to Pharmacy Electronically, [facility] #[id number], 170, cm, 05/20/20 14:08:00 EDT, Height, 100.5, kg, 05/30/19 9:39:00 EDT, [facility]. Start Date: 05/20/20 Status: Ordered atorvastatin 10 mg oral tablet 1 tablet = 10 mg, By Mouth, Daily, # 90 tablet, 1 Refills, Maintenance, 05/05/21 10:09:00 EDT, [facility] #[id number], 170, cm, 12/21/20 9:18:00 EST, Height, 100.5, kg, 05/30/19 9:39:00 EDT, DryWeight Start Date: 05/05/21 Status: Ordered FREESTYLE LITE BLOOD GLUCSTR 50S See Instructions, # 150 Unknown, Refills 0, Maintenance, USE TO CHECK BLOOD SUGAR FOUR TIMES DAILY AND NEEDED UP TO TOTAL OF FIVE TIMES DAILY, 170, cm, 12/16/19 10:11:00 EST, Height, 100.5, kg, 05/30/19 9:39:00 EDT, Dry Weight Start Date: 2/11/20 Status: Ordered Freestyle Lite Lancets See Instructions, # 300 each, Refills 3, Tot. Refills 3, Maintenance, use to check bs four times daily, 04/15/21 12:26:00 EDT, Compound, 170, cm, 12/21/20 9:18:00 EST, Height, 100.5, kg, 05/30/19 9:39:00 EDT, Dry Weight Start Date: 04/15/21 Status: Ordered Freestyle Lite Monitor See Instructions, [...] Date: 01/29/21 Stop Date: 02/28/21 Status: Ordered Januvia 100 mg oral tablet 1 tablet, By Mouth, Daily, # 90 tablet, 0 Refills, Maintenance, 03/28/21 10:39:00 EDT, [facility] #[id number], 170, cm, 12/21/20 9:18:00 EST, Height, 100.5, kg, 05/30/19 9:39:00 EDT, Dry Weight Start Date: 03/28/21 Status: Ordered Lantus Solostar Pen 100 units/mL subcutaneous solution See Instructions, Inject 40 units under the skin twice daily., # 24 mL, 2 Refills, Maintenance, 05/10/21 14:21:00 EDT, [facility] #[id number], 170, cm, 12/21/20 9:18:00 EST, Height, 100.5, kg, 05/30/19 9:39:00 EDT, Dry Weight Start Date: 05/10/21 Status: Ordered lisinopril 40 mg oral tablet 1 tablet = 40 mg, By Mouth, Daily, # 90 tablet, 4 Refills, Maintenance, 02/03/20 12:39:00 EDT, Tablet, [facility] #[id number], 170, cm, 12/16/19 10:11:00 EST, Height, 100.5, kg, 05/30/19 9:39:00EDT, Dry Weight Start Date: 02/03/20 Stop Date: 04/28/21 Status: Ordered Melatonin 5 mg oral tablet 0 Refills, Maintenance, 01/29/19 10:09:09 EDT Start Date: 01/29/19 Status: Ordered NovoLOG FlexPen 100 units/mL injectable solution See Instructions, INJECT 20 UNITS SUBCUTANEOULSY THREE TIMES DAILY BEFORE MEALS., # 48 mL, 0 Refills, 03/30/21 11:25:00 EDT, [facility] #[id number], 170, cm, 12/21/20 9:18:00 EST, Height, 100.5,kg, 05/30/19 9:39:00 EDT, Dry Weight Start Date: 03/30/21 Status: Ordered OXcarbazepine 300 mg oral tablet TK 1 T PO BID Start Date: 01/29/19 Status: Ordered PARoxetine 40 mg oral tablet TK 1 T PO HS Start Date: 01/29/19 Status: Ordered Pen [place], 31 G x 5 mm BD Ultra Fine III See Instructions, # 150 each, Refills 11, Tot. Refills 11, Maintenance, use to inject insulin up tofive times daily dx e11.9, 10/21/20 15:55:00 EST, Supply, 170, cm, 05/20/20 14:48:00 EDT, Height, 100.5, kg, 05/30/19 9:39:00 EDT, Dry Weight Start Date: 10/21/20 Status: Ordered Pen [place], 31 G x 5 mm BD Ultra Fine III See Instructions, # 300 each, Refills 4, Tot. Refills 4, Maintenance, Use for injection of insulin up to 5 times daily. For type 2 diabetes mellitus., 04/06/21 15:51:00 EDT, if possible please give box rather than bag as patient has difficulty when pe... Start Date: 04/06/21 Stop Date: 06/30/22 Status: Ordered Senna 8.6 mg oral tablet 17.2 mg, 2, tablet, By Mouth, Daily, Refills 0, Maintenance, 06/01/19 9:40:46 EDT, Tablet Start Date: 06/01/19 Status: Ordered traZODone 300 mg oral tablet TK 1 T PO HS Start Date: 01/29/19 Status: Ordered Trulicity Pen 1.5 mg/0.5 mL subcutaneous solution See Instructions, ADMINISTER 1.5 MG UNDER THE SKIN EVERY WEEK, # 2 mL, 5 Refills, Maintenance, [facility] #[id number], 170, cm, 05/20/21 15:42:00 EDT, Height Start Date: 06/06/21 Status: Ordered Vraylar 3 mg oral capsule [...] Microalbuminuria(Confirmed) Active Morbid obesity(Confirmed) Active BHN/CCA/AUDRA-Mignon Peters [phone]/Health half-way active care coordination(Confirmed) Active Peripheral vascular disease(Confirmed) Active Umbilical hernia(Confirmed) Active 1per 2017 and 2019 [facility] notes Social History Social History Type Response Smoking Status Never (less than 100 in lifetime) entered on: 09/03/19 Sex Female 1per pt
--- OUTSIDE RECORDS SUMMARY | 2023-02-20 15:11 | XMS_ITS | Continuity of Care Document ---
Author Name Unknown Organization [facility] Address [address] [place] [address]- Care Team Providers Care Rolling Mill Plugger Name Role Phone Allegra Aguayo MD Primary Care Physician Encounter [facility] [place] Date(s): 11/28/22 - 01/19/23 [facility] [address] [place], [place] [address] Attending Physician: Madeline Asif NP Admitting Physician: Madeline Asif NP Allergies, Adverse Reactions, Alerts Substance Reaction Severity Status ibuprofen ABD PAIN Active morphine Vomiting and itchy Active traMADol Itchy, Hives Active Immunizations Given and Recorded Vaccine Date Status Refusal Reason SARS-CoV-2 mRNA ([id number]) vax 02/22/22 Recorded SARS-CoV-2 (COVID-19) mRNA BNT-162b2 [...] Note: VIS GIVEN-DATED 05/30/11 2Result Comment: LOT [id number] EXP 04 MAY 2010 3Admin Note: VIS [...] 04/24/22 9:05:00 EDT, Route to Pharmacy Electronically, [facility], Partial fill upon patient request if the prescription is for a schedule II opio... Start Date: 04/24/22 Status: Ordered ammonium lactate 5% topical lotion 1 application, Topically, 2 times a day, # 240 Gm, 0 Refills, Maintenance, 05/01/22 12:34:00 EDT, Lotion, [facility] #[id number], Partial fill upon patient request if the prescription is for a schedule II opioid drug., 1 application Topically 2 times a da... Start Date: 05/01/22 Stop Date: 05/31/22 Status: Ordered aspirin 81 mg oral delayed release tablet 81 mg, By Mouth, Daily, # 30 tablet, Refills 2, Tot. Refills 2, Maintenance, 12/25/22 11:05:00 EST,Route to Pharmacy Electronically, [facility]/pharmacy #[id number], Partial fill upon patient request if the prescription is for a schedule II opioid drug., 169, cm,... Start Date: 12/25/22 Stop Date: 03/25/23 Status: Ordered atorvastatin 40 mg oral tablet 1 tablet = 40 mg, By Mouth, Daily, # 90 tablet, 2 Refills, Maintenance, 04/24/22 9:41:00 EDT, Tablet, [facility], Partial fill upon patient request if [...] 07/26/22 16:13:00 EDT, Route to Pharmacy Electronically, [facility]/pharmacy #[id number], Partial fill upon patient [...] 03/16/22 14:30:00 EDT, Route to Pharmacy Electronically, [facility], Partial fill upon patient request if [...] 0 Refills, Maintenance, 09/21/22 11:57:00 EST, Tablet, [facility]/pharmacy #[id number], Partial fill upon patient [...] 10/16/22 10:25:00 EST, Route to Pharmacy Electronically, [facility] #[id number], Partial fill upon patientrequest if the prescription [...] each, 0 Refills, Maintenance, 01/03/23 15:48:00 EST, [facility]/pharmacy #[id number], Partial fill upon patient request if the prescription is for a schedule II opioid drug., 169, cm, 11/28/22... Start Date: 01/03/23 Stop Date: 02/02/23 Status: Ordered Lasix 20 mg oral tablet 1, capsule, By Mouth, Once, take one pill daily for 3 days, # 3 tablet, Refills 0, Tot. Refills 0, Soft Stop, 09/20/22 11:19:00 EST, Route to Pharmacy Electronically, [facility]/pharmacy #[id number], Partial fillupon patient request if the prescription is for a s... Start Date: 09/20/22 Status: Ordered levoFLOXacin 250 mg oral tablet 1 tablet = 250 mg, By Mouth, Every 24 hours, # 14 tablet, 0 Refills, Maintenance, 09/20/22 11:28:00EST, Tablet, [facility]/pharmacy #[id number], Partial fill upon patient request if the prescription is for a schedule II opioid drug., 169, cm, 09/20/22 9:22:00 EST... Start Date: 09/20/22 Stop Date: 10/04/22 Status: Ordered lisinopril 10 mg oral tablet 10 mg, 1, tablet, By Mouth, Daily, # 90 tablet, Refills 0, Tot. Refills 0, Maintenance, 11/30/22 8:10:00 EST, Route to Pharmacy Electronically, [facility]/pharmacy #[id number], Partial fill upon patient [...] tablet, 0 Refills, Maintenance, 11/28/22 13:29:00 EST, [facility]/pharmacy #[id number], Partial fill upon patient request if the prescription is for a schedule II opioid drug., 169,... Start Date: 11/28/22 Status: Ordered oxyCODONE 10 mg oral tablet 1 tablet = 10 mg, By Mouth, Every 12 hours, PRN Pain , Moderate, # 30 tablet, 0 Refills, Maintenance, 01/12/23 13:41:00 EST, [facility]/pharmacy #[id number], Partial fill upon patient request if the prescription is for a schedule II opioid drug., 169, cm, 11/28/22... Start Date: 01/12/23 Status: Ordered PARoxetine 40 mg oral tablet 40 mg, 1, tablet, By Mouth, Daily, Refills 0, Maintenance, 01/11/22 9:43:00 EST Start Date: 01/11/22 Status: Ordered Pen [place], 31 G x 5 mm BD Ultra [...] 04/24/22 9:03:00 EDT, Route to Pharmacy Electronically, [facility], Partial fill upon patient request if [...] 0 Refills, Maintenance, 11/22/22 12:11:00 EST, Ointment, [facility]/pharmacy #[id number], Partial fill upon patient [...] 2 Refills, Maintenance, 10/16/22 13:14:00 EST, Solution, [facility]/pharmacy #[id number], Partial fill upon patient [...] Active Morbid obesity Confirmed Active BHN/CCA/CP- [place] [phone] retirement active care coordination Confirmed Active Peripheral vascular disease - right SFA angioplasty/right great toe amputation 2022 Confirmed Active Severe obesity (BMI 35.0-39.9) with comorbidity Confirmed Active Umbilical hernia Confirmed Active 1per 2017 and 2019 [facility] notes Social History Social History Type Response Smoking Status Never (less than 100 in lifetime) entered on: 09/03/19 Sex 1per pt Patient Care team information Care Team Personnel Name: Allegra Aguayo MD Position: [facility] Resident Member Role: PCP Address: Address: [address] [place] [address] [place] [address]- Name: Vera Locke RN Position: [facility] RN Member Role: Primary Care Nurse Name: Mauricio RNBaljit Position: [facility] ED RN W/OE and Tasks Member Role: Primary Care Nurse Name: Sabine Guthrie RN Position: [facility] RN Member Role: Primary Care Nurse Name: Aditi Hernandez RN Position: [facility] RN Member Role: Primary Care Nurse Name: Piyush Moore RN Position: [facility] RN Member Role: Primary Care Nurse Name: Mis Vences RN Position: [facility] RN Member Role: Primary Care Nurse Name: Angie Lopez RN Position: [facility] RN Member Role: Primary Care Nurse Name: Lizzie Estrada RN Position: [facility] Onco RN Member Role: Primary Care Nurse Care Team Related Persons Name: MIKEY SEAY Address: home [address] [address] Name: MIKEY AYALA Address: home [address] [place] [address] Name: TANIA COPPOLA Address: home [address] [place] [id number] Name: TANIA MUÑIZ Address: home [address] [place] [id number]
--- OUTSIDE RECORDS SUMMARY | 2023-02-20 15:11 | XMS_ITS | Continuity of Care Document ---
Author Name Unknown Organization [facility] Address [address] [place] [address]- Care Team Providers Care Skein Winder Name Role Phone Olivier MOSHER, Allegra Primary Care Physician Encounter [facility] Date(s): 09/15/22 - 10/15/22 [facility] [address] [place] [address]- Allergies, Adverse Reactions, Alerts Substance Reaction Severity Status ibuprofen ABD PAIN Active morphine Vomiting and itchy Active traMADol Itchy, Hives Active Immunizations Given and Recorded Vaccine Date Status Refusal Reason SARS-CoV-2 mRNA (vybtenm-[id number]) vax 02/22/22 Recorded SARS-CoV-2 (COVID-19) mRNA BNT-162b2 [...] Note: VIS GIVEN-DATED 05/30/11 2Result Comment: LOT [id number] EXP 04 MAY 2010 3Admin Note: VIS [...] 04/24/22 9:05:00 EDT, Route to Pharmacy Electronically, [facility], Partial fill upon patient request if the prescription is for a schedule II opio... Start Date: 04/24/22 Status: Ordered ammonium lactate 5% topical lotion 1 application, Topically, 2 times a day, # 240 Gm, 0 Refills, Maintenance, 05/01/22 12:34:00 EDT, Lotion, [facility]/pharmacy #[id number], Partial fill upon patient request if the prescription is for a schedule II opioid drug., 1 application Topically 2 times a da... Start Date: 05/01/22 Stop Date: 05/31/22 Status: Ordered aspirin 81 mg oral delayed release tablet 81 mg, By Mouth, Daily, # 30 tablet, Refills 5, Tot. Refills 5, Maintenance, 05/13/22 16:40:00 EDT,Route to Pharmacy Electronically, [facility], Partial fill upon patient request if the prescription is for a schedule II opioid drug.,... Start Date: 05/13/22 Stop Date: 11/09/22 Status: Ordered atorvastatin 40 mg oral tablet 1 tablet = 40 mg, By Mouth, Daily, # 90 tablet, 2 Refills, Maintenance, 04/24/22 9:41:00 EDT, Tablet, [facility], Partial fill upon patient request if [...] tablet, Refills 5, Tot. Refills 5, Maintenance, 07/26/22 16:13:00 EDT, [id number] Partial fill upon patient request if the prescription is for a schedule II opi... Start Date: 07/26/22 Stop Date: 01/22/23 Status: Ordered Colace sodium 100 mg oral capsule 100 mg, 1, capsule, By Mouth, 2 times a day, PRN, # 60 capsule, Refills 0, Tot. Refills 0, Maintenance, for constipation, 03/16/22 14:30:00 EDT, Route to Pharmacy Electronically, [facility], Partial fill upon patient request if [...] 0 Refills, Maintenance, 09/21/22 11:57:00 EST, Tablet, [facility]/pharmacy #[id number], Partial fill upon patient request if the prescription is for a schedule II opioid drug., 169, cm, 09/20/22 9:22:00 EST,... Start Date: 09/21/22 Stop Date: 09/26/22 Status: Ordered Freestyle Lite Test Strips See Instructions, # 100 each, Refills 3, Tot. Refills 3, Maintenance, USE TO TEST 4 TIMES DAILY, 09/25/22 10:52:00 EST, Supply, 169, cm, 09/20/22 9:22:00 EST, Height, 103.42, kg, 09/20/22 9:22:00 EST, Dry Weight Start Date: 09/25/22 Stop Date: 01/23/23 Status: Ordered furosemide 20 mg oral tablet 20 mg, 1, tablet, By Mouth, Daily, # 30 tablet, Refills 5, Tot. Refills 5, Maintenance, 07/07/22 15:52:00 EDT, Route to Pharmacy Electronically, [facility], Partial fill upon patient request if the prescription is for a schedule II opi... Start Date: 07/07/22 Status: Ordered Insulin Syringe, BD Ultra-Fine 0.5 cc 31 G x 8 mm (16in) See Instructions, # 100 each, Refills 3, [...] 2 times a day, # 15 mL, 6 Refills, Soft Stop, 08/01/22 16:09:00EDT, Solution, [facility]., Partial fill upon patient request if the prescription isfor a schedule II opioid drug., 169, cm, 08/01/22 1... Start Date: 08/01/22 Stop Date: 04/22/24 Status: Ordered Lasix 20 mg oral tablet 1, capsule, By Mouth, Once, take one pill daily for 3 days, # 3 tablet, Refills 0, Tot. Refills 0, Soft Stop, 09/20/22 11:19:00 EST, [id number] Partial fillupon patient request if the prescription is for a s... Start Date: 09/20/22 Status: Ordered levoFLOXacin 250 mg oral tablet 1 tablet = 250 mg, By Mouth, Every 24 hours, # 14 tablet, 0 Refills, Maintenance, 09/20/22 11:28:00EST, [facility]t, [id number], Partial fill upon patient request if the prescription is for a schedule II opioid drug., 169, cm, 09/20/22 9:22:00 EST... Start Date: 09/20/22 Stop Date: 10/04/22 Status: Ordered lisinopril 10 mg oral tablet 10 mg, 1, tablet, By Mouth, Daily, # 90 tablet, Refills 4, Tot. Refills 4, Maintenance, 07/12/22 10:12:00 EDT, Route to Pharmacy Electronically, [facility][id number], Partial fill upon patientrequest if the prescription is for a schedule II op... Start Date: 07/12/22 Stop Date: 10/05/23 Status: Ordered NovoLOG FlexPen 100 units/mL injectable solution = 20 units, Subcutaneous Injection, 3 times a day before meals, INJECT 20 UNITS INTO SKIN THREE TIMES DAILY BEFORE A MEAL, # 15 mL, 10 Refills, Maintenance, 08/01/22 16:09:00 EDT, [facility]., 169, cm, 08/01/22 14:14:00 EDT, Height, [...] days, # 28 tablet, 0 Refills, Acute 10/24/22 15:48:00 EST, 10/10/22 15:48:00 EST, [facility]/pharmacy #[id number], Partial fill upon patient request if the prescription is for a schedule II opioid drug., 169, cm,... Start Date: 10/10/22 Stop Date: 10/24/22 Status: Ordered PARoxetine 40 mg oral tablet 40 mg, 1, tablet, By Mouth, Daily, Refills 0, Maintenance, 01/11/22 9:43:00 EST Start Date: 01/11/22 Status: Ordered Plavix 75 mg oral tablet 75 mg, 1, tablet, By Mouth, Daily, # 30 tablet, Refills 5, Tot. Refills 5, Maintenance, 04/24/22 9:03:00 EDT, Route to Pharmacy Electronically, [facility], Partial fill upon patient request if the prescription is for a schedule II opio... Start Date: 04/24/22 Status: Ordered ProAir HFA 90 mcg/inh inhalation aerosol 1 puffs, Inhalation, Every 4 hours, PRN as needed for wheezing, # 18 Gm, 0 Refills, Maintenance, 10/03/22 6:38:00 EST, Aerosol, [facility] #[id number], Partial fill upon patient request if the [...] Start Date: 03/03/22 Status: Ordered Trulicity Pen 4.5 mg/0.5 mL subcutaneous solution = 0.5 mL, Subcutaneous Injection, Every week, rotate injection sites, # 6 mL, 4 Refills, Maintenance, 07/19/22 10:42:00 EDT, Solution, [facility] #[id number], Partial fill upon patient request if the prescription is for a schedule II opioid drug.... Start Date: 07/19/22 Status: Ordered Ventolin HFA 108 mcg/inh inhalation aerosol with adapter 2 puffs, Inhalation, Every 6 hours, PRN Wheezing/Shortness of Breath, # 8 Gm, 1 Refills, Maintenance, 05/30/22 10:56:00 EDT, [facility], Partial fill upon patient request if [...] Microalbuminuria Confirmed Active Morbid obesity Confirmed Active Obese class II Confirmed Active BHN/CCA/CP- Angle [id number] assisted active care coordination Confirmed Active Peripheral vascular disease - right SFA angioplasty/right great toe amputation 2021 Confirmed Active Umbilical hernia Confirmed Active 1per 2016 and 2019 [facility] notes Social History Social History Type Response Smoking Status Never (less than 100 in lifetime) entered on: 09/03/19 Sex 1per pt Patient Care team information Care Team Personnel Name: Allegra Aguayo MD Position: [facility] Resident Member Role: PCP Address: Address: [address] [place] [id number] Name: Vera Locke RN Position: S [...] Care Nurse Name: Lizzie Estrada RN Position: S RN Member Role: Primary Care Nurse Care Team Related Persons Name: MIKEY SEAY Address: home [address] [address] Name: MIKEY AYALA Address: home [address] [place] [address] Name: TANIA COPPOLA Address: home [address] [place] [id number] Name: TANIA MUÑIZ Address: home [address] [place] [id number]
--- OUTSIDE RECORDS SUMMARY | 2023-02-20 15:11 | XMS_ITS | Continuity of Care Document ---
Author Name Unknown Organization [facility] Address [address] [place] [address]- Care Team Providers Care Heel Padder Name Role Phone Allegra Aguayo MD [id number]): [facility] - 08/04/22 [facility] [address] [place] [address]- Attending Physician: Arlette Galloway NP Admitting Physician: Arlette Galloway NP Allergies, Adverse Reactions, Alerts Substance Reaction Severity Status ibuprofen ABD PAIN Active morphine Vomiting and itchy Active traMADol Itchy, Hives Active Immunizations Given and Recorded Vaccine Date Status Refusal Reason SARS-CoV-2 mRNA (vjbwgdl-pdlv-rztao) vax 02/22/22 Recorded SARS-CoV-2 (COVID-19) mRNA BNT-162b2 [...] Note: VIS GIVEN-DATED 05/30/11 2Result Comment: LOT [id number] EXP 04 MAY 2010 3Admin Note: VIS given Medications 4 x 4 sterile gauze 4 x 4 sterile gauze, See Instructions, # 1 Unknown, Refills 0, Tot. Refills 0, Maintenance, please dispense 1 box of 4x4 sterile gauze for right toe infection ICD 10 L03.039, length of use 2 months, 07/19/22 12:40:00 EDT, Supply Start Date: 07/19/22 Status: Ordered Alcohol Wipes See Instructions, # [...] 04/24/22 9:05:00 EDT, Route to Pharmacy Electronically, [facility], Partial fill upon patient request if the prescription is for a schedule II opio... Start Date: 04/24/22 Status: Ordered ammonium lactate 5% topical lotion 1 application, Topically, 2 times a day, # 240 Gm, 0 Refills, Maintenance, 05/01/22 12:34:00 EDT, Lotion, [facility]/pharmacy #[id number], Partial fill upon patient request if the prescription is for a schedule II opioid drug., 1 application Topically 2 times a da... Start Date: 05/01/22 Stop Date: 05/31/22 Status: Ordered aspirin 81 mg oral delayed release tablet 81 mg, By Mouth, Daily, # 30 tablet, Refills 5, Tot. Refills 5, Maintenance, 05/13/22 16:40:00 EDT,Route to Pharmacy Electronically, [facility], Partial fill upon patient request if the prescription is for a schedule II opioid drug.,... Start Date: 05/13/22 Stop Date: 11/09/22 Status: Ordered atorvastatin 40 mg oral tablet 1 tablet = 40 mg, By Mouth, Daily, # 90 tablet, 2 Refills, Maintenance, 04/24/22 9:41:00 EDT, Tablet, [facility]., Partial fill upon patient request if [...] 07/26/22 16:13:00 EDT, [id number] Partial fill upon patient request if the prescription is for a schedule II opi... Start Date: 07/26/22 Stop Date: 01/22/23 Status: Ordered Colace sodium 100 mg oral capsule 100 mg, 1, capsule, By Mouth, 2 times a day, PRN, # 60 capsule, Refills 0, Tot. Refills 0, Maintenance, for constipation, 03/16/22 14:30:00 EDT, Route to Pharmacy Electronically, [facility], Partial fill upon patient request if the pre... Start Date: 03/16/22 Status: Ordered Darco front offloading shoe Darco front offloading shoe, See Instructions, # 1 each, Refills 0, Tot. Refills 0, Maintenance, dx: dfu, 03/14/22 10:48:00 EDT, Compound Start Date: 03/14/22 Status: Ordered Freestyle Lite Test Strips See Instructions, # 100 each, Refills 3, Tot. Refills 3, Maintenance, USE TO TEST 4 TIMES DAILY, 11/04/22 14:23:00 EST, Supply Start Date: 11/04/22 Stop Date: 03/04/23 Status: Ordered furosemide 20 mg oral tablet 20 mg, 1, tablet, By Mouth, Daily, # 30 tablet, Refills 5, Tot. Refills 5, Maintenance, 07/07/22 15:52:00 EDT, Route to Pharmacy Electronically, [facility], Partial fill upon patient request if [...] Date: 03/09/22 Stop Date: 07/07/22 Status: Ordered Lantus Solostar Pen 100 units/mL subcutaneous solution = 30 units, Subcutaneous Injection, 2 times a day, # 15 mL, 6 Refills, Soft Stop, 08/01/22 16:09:00EDT, Solution, [facility], Partial fill upon patient request if the prescription isfor a schedule II opioid drug., 169, cm, 08/01/22 1... Start Date: 08/01/22 Stop Date: 04/22/24 Status: Ordered lisinopril 10 mg oral tablet 10 mg, 1, tablet, By Mouth, Daily, # 90 tablet, Refills 4, Tot. Refills 4, Maintenance, 07/12/22 10:12:00 EDT, Route to Pharmacy Electronically, [facility] #[id number], Partial fill upon patientrequest if the prescription is for a schedule II op... Start Date: 07/12/22 Stop Date: 10/05/23 Status: Ordered NovoLOG FlexPen 100 units/mL injectable solution = 20 units, Subcutaneous Injection, 3 times a day before meals, INJECT 20 UNITS INTO SKIN THREE TIMES DAILY BEFORE A MEAL, # 15 mL, 10 Refills, Maintenance, 08/01/22 16:09:00 EDT, [facility] 169, cm, 08/01/22 14:14:00 EDT, Height, 104... Start Date: 08/01/22 Stop Date: 04/17/25 Status: Ordered Offloading boot Offloading boot, See Instructions, # 1 each, Refills 0, Tot. Refills 0, Maintenance, Please fit patient Diagnosis: Diabetic foot infection ICD code E11. 621, 07/21/22 8:08:00 EDT, Supply Start Date: 07/21/22 Status: Ordered oxyCODONE 5 mg oral tablet 5 mg, 1, tablet, By Mouth, Daily at bedtime, PRN, for 10 days, # 28 tablet, Refills 0, Tot. Refills0, Acute 08/13/22 9:37:00 EDT, as needed for pain, 08/03/22 9:37:00 EDT, [id number], Partial fill upon patien... Start Date: 08/03/22 Stop Date: 08/13/22 Status: Ordered PARoxetine 40 mg oral tablet 40 mg, 1, tablet, By Mouth, Daily, Refills 0, Maintenance, 01/11/22 9:43:00 EST Start Date: 01/11/22 Status: Ordered Plavix 75 mg oral tablet 75 mg, 1, tablet, By Mouth, Daily, # 30 tablet, Refills 5, Tot. Refills 5, Maintenance, 04/24/22 9:03:00 EDT, Route to Pharmacy Electronically, [facility], Partial fill upon patient request if the prescription is for a schedule II opio... Start Date: 04/24/22 Status: Ordered ProAir HFA 90 mcg/inh inhalation aerosol 1 puffs, Inhalation, Every 4 hours, PRN as needed for wheezing, # 18 Gm, 0 Refills, Maintenance, 04/18/22 9:51:00 EDT, Aerosol, [facility], Partial fill upon patient request if the prescription is for a schedule II opioid drug., 1 puff... Start Date: 04/18/22 Status: Ordered right foot large post op shoe right foot large post op shoe, See Instructions, # 1 each, Refills 0, Tot. Refills 0, Maintenance, please dispense 1 large post op shoe for right toe infection ICD 10 L03.039, length of use 2 months,07/19/22 12:41:00 EDT, Supply Start Date: 07/19/22 Status: Ordered Santyl Topical Oint 1 applicator, Topically, Daily, 0 Refills, Maintenance, Ointment Start Date: 04/13/22 Status: Ordered silver topical gel See Instructions, Topically Daily cover with appropriate dressing after application clean wound prior to application, # 45 mL, 0 Refills, Maintenance, 03/09/22 14:21:00 EDT, Gel, [facility], Partial fill upon patient request if the p... Start Date: 03/09/22 Status: Ordered traZODone 300 mg oral tablet 1 tablet = 300 mg, By Mouth, Daily at bedtime Start Date: 03/03/22 Status: Ordered Trulicity Pen 4.5 mg/0.5 mL subcutaneous solution = 0.5 mL, Subcutaneous Injection, Every week, rotate injection sites, # 6 mL, 4 Refills, Maintenance, 07/19/22 10:42:00 EDT, Solution, [facility] #[id number], Partial fill upon patient request if the prescription is for a schedule II opioid drug.... Start Date: 07/19/22 Status: Ordered Tylenol 8 Hour 650 mg oral tablet, extended release 2 tablet = 1,300 mg, By Mouth, Every 8 hours, PRN as needed for pain, # 24 tablet, 0 Refills, Maintenance, 04/24/22 9:43:00 EDT, ER Tablet, [facility], Partial fill upon patient request if the prescription is for a schedule II opioid d... Start Date: 04/24/22 Status: Ordered Ventolin HFA 108 mcg/inh inhalation aerosol with adapter 2 puffs, Inhalation, Every 6 hours, PRN Wheezing/Shortness of Breath, # 8 Gm, 1 Refills, Maintenance, 05/30/22 10:56:00 EDT, [facility], Partial fill upon patient request if the prescription is for a schedule II opioid drug., 169, cm,... Start Date: 05/30/22 Status: Ordered Problem List Condition Confirmation Course Effective Dates Status H ealth Status Informant Abdominal pain Confirmed Active Storey's cyst of knee Confirmed Active Cholecystectomy Confirmed Active Diabetes mellitus Confirmed 07/2007 Active Diabetic peripheral neuropathy Confirmed Active Diabetic retinopathy - next due 1 Confirmed 2016 Active Reading difficulty Confirmed Active Dyslipidemia Confirmed Active Hypertension Confirmed Active Microalbuminuria Confirmed Active Morbid obesity Confirmed Active Obese class II Confirmed Active BHN/CCA/CP- Angle [id number] half-way active care coordination Confirmed Active Peripheral vascular disease Confirmed Active Umbilical hernia Confirmed Active 1per 2017 and 2019 [facility] notes Social History Social History Type Response Smoking Status Never (less than 100 in lifetime) entered on: 09/03/19 Sex 1per pt Patient Care team information Personnel Name: Allegra Aguayo MD Address: Address: [address] [place] [address]
--- OUTSIDE RECORDS SUMMARY | 2023-02-20 15:11 | XMS_ITS | Continuity of Care Document ---
Author Name Unknown Organization [facility] Address [address] [place] [address]- Care Team Providers Care Powder Press Operator Name Role Phone Sangeetha MOSHER, Marcia Koroma Primary Care Physician Encounter [facility] Date(s): 10/21/20 - 11/20/20 [facility] [address] [place] [address]- Allergies, Adverse Reactions, Alerts Substance Reaction Severity [...] Note: VIS GIVEN-DATED 05/30/11 2Result Comment: LOT [id number] EXP 04 MAY 2010 3Admin Note: VIS [...] 07/30/20 18:34:00 EDT, Route to Pharmacy Electronically, [facility] #[id number], 170, cm, 05/20/20 14:48:00 EDT, Height, 100.5, kg, 05/30/19 9:39:00 EDT, Dry... Start Date: 07/30/20 Stop Date: 07/25/21 Status: Ordered aspirin 81 mg oral delayed release tablet 81 mg, 1, tablet, By Mouth, Daily, # 30 tablet, Refills 11, Tot. Refills 11, Maintenance, 05/20/20 14:45:00 EDT, Route to Pharmacy Electronically, [facility] #[id number], 170, cm, 05/20/20 14:08:00 EDT, Height, 100.5, kg, 05/30/19 9:39:00 EDT, . Start Date: 05/20/20 Status: Ordered atorvastatin 10 mg oral tablet 1 tablet = 10 mg, By Mouth, Daily, # 30 tablet, 11 Refills, Maintenance, 05/20/20 14:46:00 EDT, [facility] #[id number], 170, cm, 05/20/20 14:08:00 EDT, Height, 100.5, [...] Date: 11/02/20 Stop Date: 10/28/21 Status: Ordered hydrocortisone 0.5% topical ointment 1 application, Topically, 2 times a day, # 28 Gm, 0 Refills, Maintenance, 09/02/20 14:20:00 EDT, [id number], 1 application Topically 2 times a day, 170, cm, 05/20/20 14:48:00 EDT, Height, 100.5, kg, 05/30/19 9:39:00 EDT, Dry... Start Date: 09/02/20 Status: Ordered Insulin Syringe, BD Ultra-Fine 0.5 cc 31 G x 8 mm (5/16in) See Instructions, for 30 days, # 150 each, Refills 5, Tot. Refills 5, Hard Stop 03/09/21 18:41:00 EDT, use as directed for Type 2 Diabetes Mellitus to admisiter insulin four times a day. Dx; E11.9, 09/10/20 18:41:00 EST, [facility] Start Date: 09/10/20 Stop Date: 03/09/21 Status: Ordered Insulin Syringe, BD Ultra-Fine 0.5 cc 31 G x 8 mm (516in) See Instructions, # 150 each, Refills 11, Tot. Refills 11, Maintenance, use as directed for Type 2 Diabetes Mellitus to admisiter insulin four times a day. Dx; E11.9, 05/15/21 15:10:00 EDT, pt was transferred to [facility], all meds left beh... Start Date: 05/15/21 Stop Date: 05/10/22 Status: Ordered Lantus 100 u/ml subcutaneous solution = 40 units, Subcutaneous Infusion, 2 times a day, # 15 mL, 3 Refills, Maintenance, 07/30/20 18:34:00 EDT, [facility] #[id number], 170, cm, 05/20/20 14:48:00 EDT, Height, 100.5, kg, 05/30/19 9:39:00 EDT, Dry Weight Start Date: 07/30/20 Stop Date: 11/27/20 Status: Ordered lisinopril 40 mg oral tablet 1 tablet = 40 mg, By Mouth, Daily, # 90 tablet, 4 Refills, Maintenance, 02/03/20 12:39:00 EDT, Tablet, [facility] #[id number], 170, cm, 12/16/19 10:11:00 EST, Height, 100.5, kg, 05/30/19 9:39:00EDT, Dry Weight Start Date: 02/03/20 Stop Date: 04/28/21 Status: Ordered Melatonin 5 mg oral tablet 0 Refills, Maintenance, 01/29/19 10:09:09 EDT Start Date: 01/29/19 Status: Ordered NovoLOG 100 units/mL injectable solution = 20 units, Subcutaneous Infusion, 3 times a day before meals, replaces humalog, # 50 mL, 1 Refills, Maintenance, 07/29/20 11:23:00 EDT, [facility] #[id number], 170, cm, 05/20/20 14:48:00 EDT, Height, 100.5, kg, 05/30/19 9:39:00 EDT, Dry Weight Start Date: 07/29/20 Status: Ordered OXcarbazepine 300 mg oral tablet TK 1 T PO BID Start Date: 01/29/19 Status: Ordered PARoxetine 40 mg oral tablet TK 1 T PO HS Start Date: 01/29/19 Status: Ordered Pen [place], 31 G x 5 mm BD Ultra Fine III See Instructions, # 150 each, Refills 11, Tot. Refills 11, Maintenance, use to inject insulin up tofive times daily dx e11.9, 10/21/20 15:55:00 EST, Supply, 170, cm, 05/20/20 14:48:00 EDT, Height, 100.5, kg, 05/30/19 9:39:00 EDT, Dry Weight Start Date: 10/21/20 Status: Ordered Senna 8.6 mg oral tablet 17.2 mg, 2, tablet, By Mouth, Daily, Refills 0, Maintenance, 06/01/19 9:40:46 EDT, Tablet Start Date: 06/01/19 Status: Ordered sitaGLIPtin 100 mg oral tablet 1 tablet = 100 mg, By Mouth, Daily, dose increase, # 30 tablet, 5 Refills, Maintenance, 10/25/20 15:16:00 EST, Tablet, [facility] #[id number], Partial fill upon patient request if the prescription is for a schedule II opioid drug., 170, cm, 05/20... Start Date: 10/25/20 Status: Ordered traZODone 300 mg oral tablet TK 1 T PO HS Start Date: 01/29/19 Status: Ordered triamcinolone 0.1% topical ointment 1 application, Topically, 2 times a day, apply a thin film to affected area, # 60 Gm, 0 Refills, Maintenance, 05/20/20 15:09:00 EDT, Ointment, [facility] #[id number], 1 application Topically 2 times a day,x14 days,Instr:apply a thin film; to aff... Start Date: 05/20/20 Stop Date: 06/03/20 Status: Ordered Trulicity Pen 1.5 mg/0.5 mL subcutaneous solution 0.5 mL = 1.5 mg, Subcutaneous Injection, Every week, # 2.5 mL, 5 Refills, Maintenance, 07/29/20 8:56:00 EDT, Solution, [id number], 170, cm, 05/20/20 14:48:00 EDT, Height, 100.5, kg, 05/30/19 9:39:00 EDT, Dry Weight Start Date: 07/29/20 Stop Date: 01/25/21 Status: Ordered Vraylar 3 mg oral capsule [...] Umbilical hernia(Confirmed) Active 1per 2017 and 2019 [facility] notes Social History Social History Type Response Smoking Status Never (less than 100 in lifetime) entered on: 09/03/19 Sex Female 1per pt
--- OUTSIDE RECORDS SUMMARY | 2023-02-20 15:12 | XMS_ITS | Continuity of Care Document ---
Author Name Unknown Organization [facility] Address [address] [place] [address]- Care Team Providers Care Millwright Helper Name Role Phone Meagan Santos DO Primary Care Physici an Encounter [facility] [place] Date(s): 04/02/20 - 04/09/20 [facility] [address] [place] [address]- [facility] Attending Physician: Ashvin DONIS, Zahra Bennett Admitting Physician: Ashvin DONIS, Zahra Bennett Referring Physician: Meagan Santos DO Allergies, Adverse Reactions, Alerts Substance Reaction Severity [...] Note: VIS GIVEN-DATED 05/30/11 2Result Comment: LOT [id number] EXP 04 MAY 2010 3Admin Note: VIS [...] 02/03/20 12:39:00 EDT, Route to Pharmacy Electronically, [facility] #[id number], 170, cm, 12/16/19 10:11:00 EST, Height, 100.5, kg, 05/30/19 9:39:00 EDT, Dry... Start Date: 02/03/20 Stop Date: 01/28/21 Status: Ordered docusate sodium 100 mg oral [...] 2 dm. e11.65, 5x testing, on insulin, 02/02/20 13:28:00 EDT, Compound, 170, cm, 12/16/19 10:11:00 EST, Height, 100.5,... Start Date: 02/02/20 Status: Ordered gabapentin 100 mg oral capsule 100 mg, 1, capsule, By Mouth, 3 times a day, # 90 capsule, Refills 0, Tot. Refills 0, Maintenance, 03/06/19 17:12:53 EDT, Route to Pharmacy Electronically, [id number], [id number] Start Date: 03/06/19 Status: Ordered insulin glargine 100 u/ml subcutaneous solution See Instructions, 40 units in the MORNING and 40 units AT BEDTIME Subcutaneous Injection dx E11.9 Rotate injection sites, # 60 mL, 1 Refills, Maintenance, 02/09/20 16:59:00 EDT, Solution, [facility] #[id number], 170, cm, 12/16/19 10:11:00 EST,... Start Date: 02/09/20 Status: Ordered Insulin Syringe, BD Ultra-Fine 0.5 cc 31 G x 8 mm (5/16in) See Instructions, # 150 each, Refills 11, Tot. Refills 11, Maintenance, use as directed for Type 2 Diabetes Mellitus to admisiter insulin four times a day. Dx; E11.9, 05/13/19 13:22:55 EDT, pt was transferred to [facility], all meds left beh... Start Date: 05/13/19 Stop Date: 05/07/20 Status: Ordered lisinopril 40 mg oral tablet 1 tablet = 40 mg, By Mouth, Daily, # 90 tablet, 4 Refills, Maintenance, 02/03/20 12:39:00 EDT, Tablet, [facility] #[id number], 170, cm, 12/16/19 10:11:00 EST, Height, 100.5, kg, 05/30/19 9:39:00EDT, Dry Weight Start Date: 02/03/20 Stop Date: 04/28/21 Status: Ordered Melatonin 5 mg oral tablet 0 Refills, Maintenance, 01/29/19 10:09:09 EDT Start Date: 01/29/19 Status: Ordered meloxicam 5 mg oral capsule 1 capsule = 5 mg, By Mouth, Daily, # 5 capsule, 0 Refills, Maintenance, 02/03/20 10:30:00 EDT, Capsule, [facility] #[id number], 170, cm, 12/16/19 10:11:00 EST, Height, 100.5, kg, 05/30/19 9:39:00 EDT, Dry Weight Start Date: 02/03/20 Stop Date: 02/08/20 Status: Ordered NovoLOG 100 units/mL injectable solution = 20 units, Subcutaneous Infusion, 3 times a day before meals, replaces humalog, # 50 mL, 1 Refills, Maintenance, 02/09/20 16:58:00 EDT, [facility] #[id number], 170, cm, 12/16/19 10:11:00 EST, Height, 100.5, kg, 05/30/19 9:39:00 EDT, Dry Weight Start Date: 02/09/20 Status: Ordered OXcarbazepine 300 mg oral tablet TK 1 T PO BID Start Date: 01/29/19 Status: Ordered PARoxetine 40 mg oral tablet TK 1 T PO HS Start Date: 01/29/19 Status: Ordered Pen [place], 31 G x 5 mm BD Ultra [...] 5 Refills, Maintenance, 02/03/20 10:19:00 EDT, Solution, [facility] #[id number], 170, cm, 12/16/19 10:11:00 EST, Height, 100.5, [...] Umbilical hernia(Confirmed) Active 1per 2016 and 2019 [place] notes Vital Signs Most recent to oldest [Reference Range]: 1 Height 170 cm (04/02/20 1:31 PM) Weight 113 kg (04/02/20 1:31 PM) Oxygen Saturation [94-100 %] 98 % (04/02/20 1:31 PM) Pulse Rate [55-90 bpm] 114 bpm *H* (04/02/20 1:31 PM) Body Mass Index [18.5-24.99] 39.1 *>HHI* (04/02/20 1:31 PM) Blood Pressure [90-138/55-84 mm Hg] 140/ 98mm Hg *H* (04/02/20 1:31 PM) Blood pressure sites Arm, left (04/02/20 1:31 PM) Weight Obtained Via Patient/family state d (04/02/20 1:31 PM) Social History Social History Type Response Smoking Status Never (less than 100 in lifetime) entered on: 09/03/19 Sex Female 1per pt
--- OUTSIDE RECORDS SUMMARY | 2023-02-20 15:12 | XMS_ITS | Continuity of Care Document ---
Author Name Unknown Organization [facility] Address [address] [place] [address]- Care Team Providers Care Data Acquisition Technician Name Role Phone Josef MOSHER, Mamie Patterson Primary Care Physician [place] [facility] [place] 09/19/21 - 10/19/21 [facility] [address] [place] [address]- Allergies, Adverse Reactions, Alerts Substance Reaction Severity [...] Note: VIS GIVEN-DATED 05/30/11 2Result Comment: LOT [id number] EXP 04 MAY 2010 3Admin Note: VIS [...] 07/20/21 9:24:00 EDT, Route to Pharmacy Electronically, [facility] #[id number], 170, cm, 07/20/21 8:57:00 EDT, Height Start Date: 07/20/21 Stop Date: 10/13/22 Status: Ordered atorvastatin 10 mg oral tablet 1 tablet = 10 mg, By Mouth, Daily, # 90 tablet, 1 Refills, Maintenance, 05/05/21 10:09:00 EDT, [facility] #[id number], 170, cm, 12/21/20 9:18:00 EST, Height, 100.5, [...] 07/20/21 9:33:00 EDT, Route to Pharmacy Electronically, [facility][id number], Partial fill upon patient request if the prescription is for a schedule II opi... Start Date: 07/20/21 Stop Date: 10/18/21 Status: Ordered insulin glargine 100 units/mL subcutaneous solution See Instructions, Subcutaneous Infusion Daily 45 units sc twice daily dx E11.9, # 12 mL, 11 Refills, Maintenance, 07/28/21 11:33:00 EDT, [facility], Partial fill upon patient request if the [...] tablet, 11 Refills, Maintenance, 06/21/21 14:39:00 EDT, [facility] #[id number], 170, cm, 05/20/21 15:42:00 EDT, Height Start Date: 06/21/21 Status: Ordered Januvia 50 mg oral tablet 1 tablet = 50 mg, By Mouth, Daily, dose decreased, # 30 tablet, 11 Refills, Maintenance, 09/20/21 13:40:00 EST, Tablet, [facility] #[id number], Partial fill upon patient request if the prescription is for a schedule II opioid drug., 170, cm, 07/07... Start Date: 09/20/21 Status: Ordered lisinopril 40 mg oral tablet 1 tablet = 40 mg, By Mouth, Daily, # 90 tablet, 4 Refills, Maintenance, 07/20/21 9:25:00 EDT, Tablet, [facility] #[id number], 170, cm, 07/20/21 8:57:00 EDT, Height Start Date: 07/20/21 Stop Date: 10/13/22 Status: Ordered Melatonin 5 mg oral tablet 0 Refills, Maintenance, 01/29/19 10:09:09 EDT Start Date: 01/29/19 Status: Ordered NovoLOG 100 units/mL subcutaneous solution See Instructions, 28 units Subcutaneous Infusion 3 times a day before meals dxE11.9, # 48 mL, 11 Refills, Maintenance, 08/26/21 13:13:00 EDT, [facility], Partial fill upon patient request if the prescription is for a schedule II opioid... Start Date: 08/26/21 Status: Ordered OXcarbazepine 300 mg oral tablet TK 1 T PO BID Start Date: 01/29/19 Status: Ordered PARoxetine 40 mg oral tablet TK 1 T PO HS Start Date: 01/29/19 Status: Ordered Pen [place], 31 G x 5 mm BD Ultra Fine III See Instructions, # 150 each, Refills 11, Tot. Refills 11, Maintenance, use to inject insulin up tofive times daily dx e11.9, 10/21/20 15:55:00 EST, Supply, 170, cm, 05/20/20 14:48:00 EDT, Height, 100.5, kg, 05/30/19 9:39:00 EDT, Dry Weight Start Date: 10/21/20 Status: Ordered Pen [place], 31 G x 5 mm BD Ultra [...] EVERY WEEK, # 2 mL, 0 Refills, [facility] #[id number], 170, cm, 07/28/21 10:50:00 EDT, Height Start Date: 09/22/21 Status: Ordered Ventolin HFA 108 mcg/inh inhalation aerosol with adapter 1 puffs, Inhalation, 4 times a day, PRN for wheezing, # 8 Gm, 2 Refills, Maintenance, 09/22/21 11:41:00 EST, Aerosol, [facility] #[id number], Partial fill upon patient request if the prescription is for a schedule II opioid drug., 170, cm, 09/23/... Start Date: 09/22/21 Status: Ordered Vraylar 3 [...] Microalbuminuria(Confirmed) Active Morbid obesity(Confirmed) Active BHN/CCA/AUDRA-Mignon Peters [phone]/Health nursing home active care coordination(Confirmed) Active Peripheral vascular disease(Confirmed) Active Umbilical hernia(Confirmed) Active 1per 2017 and 2019 [facility] notes Social History Social History Type Response Smoking Status Never (less than 100 in lifetime) entered on: 09/03/19 Sex Female 1per pt
--- OUTSIDE RECORDS SUMMARY | 2023-02-20 15:12 | XMS_ITS | Continuity of Care Document ---
Author Name Unknown Organization [facility] Address [address] [place] [address]- Care Team Providers Care Cherry Dipper Name Role Phone Josef MOSHER, Mamie Patterson Primary Care Physician Encounter [facility] [place] Date(s): 07/18/21 - 08/17/21 [facility] [address], [place] [address] Allergies, Adverse Reactions, Alerts Substance [...] Note: VIS GIVEN-DATED 05/30/11 2Result Comment: LOT [id number] EXP 04 MAY 2010 3Admin Note: VIS [...] 11 Refills, Maintenance, 07/18/21 15:05:00 EDT, Powder, [facility], Patient Lost her inhailer, Will need [...] 07/20/21 9:24:00 EDT, Route to Pharmacy Electronically, [facility] #[id number], 170, cm, 07/20/21 8:57:00 EDT, Height Start Date: 07/20/21 Stop Date: 10/13/22 Status: Ordered atorvastatin 10 mg oral tablet 1 tablet = 10 mg, By Mouth, Daily, # 90 tablet, 1 Refills, Maintenance, 05/05/21 10:09:00 EDT, [facility] #[id number], 170, cm, 12/21/20 9:18:00 EST, Height, 100.5, [...] 07/20/21 9:33:00 EDT, Route to Pharmacy Electronically, [facility] #[id number], Partial fill upon patient request if the prescription is for a schedule II opi... Start Date: 07/20/21 Stop Date: 10/18/21 Status: Ordered insulin glargine 100 units/mL subcutaneous solution See Instructions, Subcutaneous Infusion Daily 45 units sc twice daily dx E11.9, # 12 mL, 11 Refills, Maintenance, 07/28/21 11:33:00 EDT[facility] fill upon patient request if [...] tablet, 11 Refills, Maintenance, 06/21/21 14:39:00 EDT, [facility] #[id number], 170, cm, 05/20/21 15:42:00 EDT, Height Start Date: 06/21/21 Status: Ordered lisinopril 40 mg oral tablet 1 tablet = 40 mg, By Mouth, Daily, # 90 tablet, 4 Refills, Maintenance, 07/20/21 9:25:00 EDT, Tablet, [facility] #[id number], 170, cm, 07/20/21 8:57:00 EDT, Height Start Date: 07/20/21 Stop Date: 10/13/22 Status: Ordered Melatonin 5 mg oral tablet 0 Refills, Maintenance, 01/29/19 10:09:09 EDT Start Date: 01/29/19 Status: Ordered NovoLOG FlexPen 100 units/mL injectable solution See Instructions, INJECT 20 UNITS INTO SKIN THREE TIMES DAILY BEFORE A MEAL, # 48 mL, 11 Refills, Maintenance, [facility] #[id number], 170, cm, 05/20/21 15:42:00 EDT, Height Start Date: 06/22/21 Status: Ordered OXcarbazepine 300 mg oral tablet TK 1 T PO BID Start Date: 01/29/19 Status: Ordered PARoxetine 40 mg oral tablet TK 1 T PO HS Start Date: 01/29/19 Status: Ordered Pen [place], 31 G x 5 mm BD Ultra Fine III See Instructions, # 150 each, Refills 11, Tot. Refills 11, Maintenance, use to inject insulin up tofive times daily dx e11.9, 10/21/20 15:55:00 EST, Supply, 170, cm, 05/20/20 14:48:00 EDT, Height, 100.5, kg, 05/30/19 9:39:00 EDT, Dry Weight Start Date: 10/21/20 Status: Ordered Pen [place], 31 G x 5 mm BD Ultra [...] 11 Refills, Maintenance, 07/18/21 15:06:00 EDT, Aerosol, [facility] Partial fill upon patient request if [...] 11 Refills, Maintenance, 07/28/21 10:54:00 EDT, Solution, [facility] Partial fill upon patient request [...] Microalbuminuria(Confirmed) Active Morbid obesity(Confirmed) Active BHN/CCA/AUDRA-Mignon Peters [phone]/Health halfway active care coordination(Confirmed) Active Peripheral vascular disease(Confirmed) Active Umbilical hernia(Confirmed) Active 1per 2017 and 2019 [facility] notes Social History Social History Type Response Smoking Status Never (less than 100 in lifetime) entered on: 09/03/19 Sex Female 1per pt
--- OUTSIDE RECORDS SUMMARY | 2023-02-20 15:12 | XMS_ITS | Continuity of Care Document ---
Author Name Unknown Organization [facility] Address [address] [place] [address]- Care Team Providers Care Sap Pi Developer Name Role Phone Olivier MOSHER, Allegra Primary Care Physician Encounter [facility] Date(s): 09/27/22 - 10/27/22 [facility] [address] [place], [place] [address] Allergies, Adverse Reactions, Alerts Substance Reaction Severity Status ibuprofen ABD PAIN Active morphine Vomiting and itchy Active traMADol Itchy, Hives Active Immunizations Given and Recorded Vaccine Date Status Refusal Reason SARS-CoV-2 mRNA ([id number]) vax 02/22/22 Recorded SARS-CoV-2 (COVID-19) mRNA BNT-162b2 [...] Note: VIS GIVEN-DATED 05/30/11 2Result Comment: LOT [id number] EXP 04 MAY 2010 3Admin Note: VIS [...] 04/24/22 9:05:00 EDT, Route to Pharmacy Electronically, [facility], Partial fill upon patient request if the prescription is for a schedule II opio... Start Date: 04/24/22 Status: Ordered ammonium lactate 5% topical lotion 1 application, Topically, 2 times a day, # 240 Gm, 0 Refills, Maintenance, 05/01/22 12:34:00 EDT, Lotion, [facility]/pharmacy #[id number], Partial fill upon patient request [...] 05/13/22 16:40:00 EDT, Route to Pharmacy Electronically, [facility], Partial fill upon patient request if the prescription is... Start Date: 05/13/22 Stop Date: 11/09/22 Status: Ordered aspirin 81 mg oral delayed release tablet 81 mg, By Mouth, Daily, # 30 tablet, Refills 0, Tot. Refills 0, Maintenance, 11/09/22 16:40:00 EST,Route to Pharmacy Electronically, [facility]/pharmacy #[id number], Partial fill upon patient request if the prescription is for a schedule II opioid drug., 169, cm,... Start Date: 11/09/22 Stop Date: 12/09/22 Status: Ordered atorvastatin 40 mg oral tablet 1 tablet = 40 mg, By Mouth, Daily, # 90 tablet, 2 Refills, Maintenance, 04/24/22 9:41:00 EDT, Tablet, [facility], Partial fill upon patient request [...] 07/26/22 16:13:00 EDT, Route to Pharmacy Electronically, [facility]/pharmacy #[id number], Partial fill upon patient request if the prescription is for a schedule II opi... Start Date: 07/26/22 Stop Date: 01/22/23 Status: Ordered Colace sodium 100 mg oral capsule 100 mg, 1, capsule, By Mouth, 2 times a day, PRN, # 60 capsule, Refills 0, Tot. Refills 0, Maintenance, for constipation, 03/16/22 14:30:00 EDT, Route to Pharmacy Electronically, [facility], Partial fill upon patient request [...] 0 Refills, Maintenance, 09/21/22 11:57:00 EST, Tablet, [facility]/pharmacy #[id number], Partial fill upon patient request [...] 10/16/22 10:25:00 EST, Route to Pharmacy Electronically, [facility] #[id number], Partial fill upon patientrequest if the prescription [...] Refills, Soft Stop, 10/16/22 8:19:00 EST, Solution, [facility]/pharmacy #[id number], Partial fill upon patient request [...] 09/20/22 11:19:00 EST, Route to Pharmacy Electronically, [facility]/pharmacy #[id number], Partial fillupon patient request if the prescription is for a s... Start Date: 09/20/22 Status: Ordered levoFLOXacin 250 mg oral tablet 1 tablet = 250 mg, By Mouth, Every 24 hours, # 14 tablet, 0 Refills, Maintenance, 09/20/22 11:28:00EST, Tablet, [facility]/pharmacy #[id number], Partial fill upon patient request if the prescription is for a schedule II opioid drug., 169, cm, 09/20/22 9:22:00 EST... Start Date: 09/20/22 Stop Date: 10/04/22 Status: Ordered lisinopril 10 mg oral tablet 10 mg, 1, tablet, By Mouth, Daily, # 90 tablet, Refills 1, Tot. Refills 1, Maintenance, 10/16/22 10:24:00 EST, Route to Pharmacy Electronically, [facility] #[id number], Partial fill upon patientrequest if the prescription is for a schedule II op... Start Date: 10/16/22 Stop Date: 04/14/23 Status: Ordered NovoLOG FlexPen 100 units/mL injectable solution = 20 units, Subcutaneous Injection, 3 times a day before meals, INJECT 20 UNITS INTO SKIN THREE TIMES DAILY BEFORE A MEAL, # 15 mL, 10 Refills, Maintenance, 08/01/22 16:09:00 EDT, [facility], 169, cm, 08/01/22 14:14:00 EDT, Height, 104... Start Date: 08/01/22 Stop Date: 04/17/25 Status: Ordered Offloading boot Offloading boot, See Instructions, # 1 each, Refills 0, Tot. Refills 0, Maintenance, Please fit patient Diagnosis: Diabetic foot infection ICD code E11. 621, 07/21/22 8:08:00 EDT, Supply Start Date: 07/21/22 Status: Ordered PARoxetine 40 mg oral tablet 40 mg, 1, tablet, By Mouth, Daily, Refills 0, Maintenance, 01/11/22 9:43:00 EST Start Date: 01/11/22 Status: Ordered Plavix 75 mg oral tablet 75 mg, 1, tablet, By Mouth, Daily, # 30 tablet, Refills 5, Tot. Refills 5, Maintenance, 04/24/22 9:03:00 EDT, Route to Pharmacy Electronically, [facility], Partial fill upon patient request if the prescription is for a schedule II opio... Start Date: 04/24/22 Status: Ordered ProAir HFA 90 mcg/inh inhalation aerosol 1 puffs, Inhalation, Every 4 hours, PRN as needed for wheezing, # 18 Gm, 0 Refills, Maintenance, 10/03/22 6:38:00 EST, Aerosol, [facility] #[id number], Partial fill upon patient request if the [...] 2 Refills, Maintenance, 10/16/22 13:14:00 EST, Solution, [facility]/pharmacy #[id number], Partial fill upon patient request if the prescription is for a schedule II opioid drug., 169, cm, 10/09/22 8:39... Start Date: 10/16/22 Status: Ordered Ventolin HFA 108 mcg/inh inhalation aerosol with adapter 2 puffs, Inhalation, Every 6 hours, PRN Wheezing/Shortness of Breath, # 8 Gm, 1 Refills, Maintenance, 05/30/22 10:56:00 EDT, [facility], Partial fill upon patient request [...] Obese class II Confirmed Active BHN/CCA/CP- [place] [phone] correction active care coordination Confirmed Active Peripheral vascular disease - right SFA angioplasty/right great toe amputation 2021 Confirmed Active Umbilical hernia Confirmed Active 1per 2016 and 2018 [facility] notes Social History Social History Type Response Smoking Status Never (less than 100 in lifetime) entered on: 09/03/19 Sex 1per pt Patient Care team information Care Team Personnel Name: Allegra Aguayo MD Position: [facility] Resident Member Role: PCP Address: Address: [address] [place] [address] Name: Vera Locke RN Position: S RN [...] Persons Name: MIKEY SEAY Address: home [address] [address] Name: MIKEY AYALA Address: home [address] [place] [address] Name: TANIA COPPOLA Address: home [address] [place] [address] Name: TANIA MUÑIZ Address: home [address] [place] [address]
--- OUTSIDE RECORDS SUMMARY | 2023-02-20 15:12 | XMS_ITS | Continuity of Care Document ---
Author Name Unknown Organization [facility] Address [address] [place] [address]- Care Team Providers Care Carbider Name Role Phone Sangeetha MOSHER, Marcia Koroma Primary Care Physician Encounter [facility] Date(s): 03/15/21 - 04/14/21 [facility] [address] [place] [address]- Allergies, Adverse Reactions, Alerts Substance Reaction Severity [...] Note: VIS GIVEN-DATED 05/30/11 2Result Comment: LOT [id number] EXP 04 MAY 2010 3Admin Note: VIS given Medications albuterol 90 mcg/inh inhalation powder 2 puffs, Inhalation, Every 6 hours, PRN as needed, # 1 each, 11 Refills, Maintenance, 12/08/20 11:02:00 EST, Powder, [facility] #[id number], 2 puffs Inhalation Every 6 hours,PRN:as needed, [...] 07/30/20 18:34:00 EDT, Route to Pharmacy Electronically, [facility] #[id number], 170, cm, 05/20/20 14:48:00 EDT, Height, 100.5, kg, 05/30/19 9:39:00 EDT, Dry... Start Date: 07/30/20 Stop Date: 07/25/21 Status: Ordered aspirin 81 mg oral delayed release tablet 81 mg, 1, tablet, By Mouth, Daily, # 30 tablet, Refills 11, Tot. Refills 11, Maintenance, 05/20/20 14:45:00 EDT, Route to Pharmacy Electronically, [facility] #[id number], 170, cm, 05/20/20 14:08:00 EDT, Height, 100.5, kg, 05/30/19 9:39:00 EDT, Start Date: 05/20/20 Status: Ordered atorvastatin 10 mg oral tablet 1 tablet = 10 mg, By Mouth, Daily, # 30 tablet, 11 Refills, Maintenance, 05/20/20 14:46:00 EDT, [facility] #[id number], 170, cm, 05/20/20 14:08:00 EDT, Height, 100.5, [...] and prn for uncontrolled DM type II, 04/07/21 7:51:00 EDT, Compound, 170, cm, 12/21/20 9:18:00 EST, Height, 100.5, kg, 05/30/19 9:39:00 EDT, Dry Weight Start Date: 04/07/21 Status: Ordered Freestyle Lite Monitor See Instructions, [...] tablet, 0 Refills, Maintenance, 03/28/21 10:39:00 EDT, [facility] #[id number], 170, cm, 12/21/20 9:18:00 EST, Height, 100.5, kg, 05/30/19 9:39:00 EDT, Dry Weight Start Date: 03/28/21 Status: Ordered Lantus Solostar Pen 100 units/mL subcutaneous solution See Instructions, Inject 40 units under the skin twice daily., # 24 mL, 3 Refills, Maintenance, 01/29/21 9:00:00 EDT, [facility] #[id number], 170, cm, 12/21/20 9:18:00 EST, Height, 100.5, kg, 05/30/19 9:39:00 EDT, Dry Weight Start Date: 01/29/21 Status: Ordered lisinopril 40 mg oral tablet 1 tablet = 40 mg, By Mouth, Daily, # 90 tablet, 4 Refills, Maintenance, 02/03/20 12:39:00 EDT, Tablet, [facility] #[id number], 170, cm, 12/16/19 10:11:00 EST, Height, 100.5, kg, 05/30/19 9:39:00EDT, Dry Weight Start Date: 02/03/20 Stop Date: 04/28/21 Status: Ordered Melatonin 5 mg oral tablet 0 Refills, Maintenance, 01/29/19 10:09:09 EDT Start Date: 01/29/19 Status: Ordered NovoLOG FlexPen 100 units/mL injectable solution See Instructions, INJECT 20 UNITS SUBCUTANEOULSY THREE TIMES DAILY BEFORE MEALS., # 48 mL, 0 Refills, 03/30/21 11:25:00 EDT, [facility] #[id number], 170, cm, 12/21/20 9:18:00 EST, Height, 100.5,kg, 05/30/19 9:39:00 EDT, Dry Weight Start Date: 03/30/21 Status: Ordered OXcarbazepine 300 mg oral tablet TK 1 T PO BID Start Date: 01/29/19 Status: Ordered PARoxetine 40 mg oral tablet TK 1 T PO HS Start Date: 01/29/19 Status: Ordered Pen [place], 31 G x 5 mm BD Ultra Fine III See Instructions, # 150 each, Refills 11, Tot. Refills 11, Maintenance, use to inject insulin up tofive times daily dx e11.9, 10/21/20 15:55:00 EST, Supply, 170, cm, 05/20/20 14:48:00 EDT, Height, 100.5, kg, 05/30/19 9:39:00 EDT, Dry Weight Start Date: 10/21/20 Status: Ordered Pen [place], 31 G x 5 mm BD Ultra [...] 5 Refills, Maintenance, 02/01/21 14:49:00 EDT, Solution, [facility] #[id number], to replace 0.75 mg dose, 170, cm, [...] Microalbuminuria(Confirmed) Active Morbid obesity(Confirmed) Active BHN/CCA/AUDRA-Mignon Peters [phone]/Health nursing home active care coordination(Confirmed) Active Peripheral vascular disease(Confirmed) Active Umbilical hernia(Confirmed) Active 1per 2017 and 2019 [facility] notes Social History Social History Type Response Smoking Status Never (less than 100 in lifetime) entered on: 09/03/19 Sex Female 1per pt
--- OUTSIDE RECORDS SUMMARY | 2023-02-20 15:12 | XMS_ITS | Continuity of Care Document ---
Author Name Unknown Organization [facility] Address [address] [place] [address]- Care Team Providers Care Preparation Room Manager Name Role Phone Mamie Bahena MD Primary Care Physician [phone] [place] [facility] [place] - 05/10/[address] [address] Attending Physician: Not on Staff, Attending MD Referring Physician: Mamie Bahena MD Allergies, Adverse Reactions, Alerts Substance Reaction Severity Status ibuprofen ABD PAIN Active morphine Vomiting and itchy Active traMADol Itchy, Hives Active Immunizations Given and Recorded Vaccine Date Status Refusal Reason SARS-CoV-2 mRNA ([id number]) vax 02/22/22 Recorded SARS-CoV-2 (COVID-19) mRNA BNT-162b2 [...] Note: VIS GIVEN-DATED 05/30/11 2Result Comment: LOT [id number] EXP 04 MAY 2010 3Admin Note: VIS [...] 04/24/22 9:05:00 EDT, Route to Pharmacy Electronically, [facility], Partial fill upon patient request if the prescription is for a schedule II opio... Start Date: 04/24/22 Status: Ordered ammonium lactate 5% topical lotion 1 application, Topically, 2 times a day, # 240 Gm, 0 Refills, Maintenance, 05/01/22 12:34:00 EDT, Lotion, [facility]/pharmacy #[id number], Partial fill upon patient request if the prescription is for a schedule II opioid drug., 1 application Topically 2 times a da... Start Date: 05/01/22 Stop Date: 05/31/22 Status: Ordered aspirin 81 mg oral delayed release tablet 81 mg, By Mouth, Daily, # 30 tablet, Refills 5, Tot. Refills 5, Maintenance, 05/13/22 16:40:00 EDT,Route to Pharmacy Electronically, [facility], Partial fill upon patient request if the prescription is for a schedule II opioid drug.,... Start Date: 05/13/22 Stop Date: 11/09/22 Status: Ordered aspirin 81 mg oral delayed release tablet 81 mg, By Mouth, Daily, for 30 days, # 30 tablet, Refills 0, Tot. Refills 0, Hard Stop 05/13/22 16:40:00 EDT, 04/13/22 16:40:00 EDT, Route to Pharmacy Electronically, [facility], Partial fill upon patient request if the prescription is f... Start Date: 04/13/22 Stop Date: 05/13/22 Status: Ordered atorvastatin 40 mg oral tablet 1 tablet = 40 mg, By Mouth, Daily, # 90 tablet, 2 Refills, Maintenance, 04/24/22 9:41:00 EDT, Tablet, [facility], Partial fill upon patient request if [...] 05/13/22 16:40:00 EDT, Route to Pharmacy Electronically, [facility], Partial fill upon patient request if the prescription is for a schedul... Start Date: 05/13/22 Stop Date: 11/09/22 Status: Ordered carvedilol 25 mg oral tablet 25 mg, 1, tablet, By Mouth, 2 times a day, for 30 days, # 60 tablet, Refills 0, Tot. Refills 0, Hard Stop 05/13/22 16:40:00 EDT, 04/13/22 16:40:00 EDT, Route to Pharmacy Electronically, [facility], Partial fill upon patient request if th... Start Date: 04/13/22 Stop Date: 05/13/22 Status: Ordered Colace sodium 100 mg oral capsule 100 mg, 1, capsule, By Mouth, 2 times a day, PRN, # 60 capsule, Refills 0, Tot. Refills 0, Maintenance, for constipation, 03/16/22 14:30:00 EDT, Route to Pharmacy Electronically, [facility], Partial fill upon patient request if [...] 05/11/22 8:04:00 EDT, 04/27/22 8:04:00 EDT, Capsule, [facility], Partial fill upon patient request [...] 04/24/22 9:02:00 EDT, Route to Pharmacy Electronically, [facility], Partial fill upon patient request if the prescription is for a schedule II opio... Start Date: 04/24/22 Status: Ordered insulin aspart 100 units/mL subcutaneous solution = 20 units, Subcutaneous Injection, 3 times a day before meals, # 10 mL, 11 Refills, Maintenance, 03/10/22 9:06:00 EDT, [facility] #[id number], Partial fill upon patient request if theprescription [...] tablet, 11 Refills, Maintenance, 03/09/22 14:23:00 EDT, [facility], resent - not recvd, 169, cm, 03/09/22 13:46:00 EDT, Height, 104.9, kg, 03/04/22 2:58:00 EDT, Dry Weight Start Date: 03/09/22 Status: Ordered Lantus 100 u/ml subcutaneous solution = 30 units, Subcutaneous Injection, 2 times a day, # 10 mL, 5 Refills, Maintenance, 03/10/22 9:05:00 EDT, [facility] #[id number], Partial fill upon patient request if the prescription is for a schedule II opioid drug., 169, cm, 03/09/22... Start Date: 03/10/22 Status: Ordered lisinopril 10 mg oral tablet 10 mg, 1, tablet, By Mouth, Daily, # 30 tablet, Refills 4, Tot. Refills 4, Maintenance, 04/24/22 9:41:00 EDT, Route to Pharmacy Electronically, [facility], Partial fill upon patient request if [...] 04/24/22 13:25:00 EDT, Route to Pharmacy Electronically, [facility]/pharmacy #[id number], Partial fill upon patient request if t... Start Date: 04/24/22 Stop Date: 05/24/22 Status: Ordered oxyCODONE 5 mg oral tablet 5 mg, 1, tablet, By Mouth, Every 6 hours, PRN, for 7 days, # 28 tablet, Refills 0, Tot. Refills 0, Acute 05/31/22 10:39:00 EDT, as needed for pain, 05/24/22 10:39:00 EDT, Route to Pharmacy Electronically, [facility]/pharmacy #[id number], Partial fill upon patient... Start [...] 04/24/22 9:03:00 EDT, Route to Pharmacy Electronically, [facility], Partial fill upon patient request if [...] 0 Refills, Maintenance, 04/18/22 9:51:00 EDT, Aerosol, [facility]., Partial fill upon patient request if [...] 0 Refills, Maintenance, 03/09/22 14:21:00 EDT, Gel, [facility], Partial fill upon patient request if the p... Start Date: 03/09/22 Status: Ordered traZODone 300 mg oral tablet 1 tablet = 300 mg, By Mouth, Daily at bedtime Start Date: 03/03/22 Status: Ordered Trulicity Pen 3 mg/0.5 mL subcutaneous solution See Instructions, ADMINISTER 0.5 ML UNDER THE SKIN EVERY WEEK. ROTATE INJECTION SITES, # 2 mL, 11 Refills, 03/09/22 14:22:00 EDT, [facility]., 169, cm, 03/09/22 13:46:00 EDT, Height, 104.9, kg, 03/04/22 2:58:00 EDT, Dry Weight Start Date: 03/09/22 Status: Ordered Tylenol 8 Hour 650 mg oral tablet, extended release 2 tablet = 1,300 mg, By Mouth, Every 8 hours, PRN as needed for pain, # 24 tablet, 0 Refills, Maintenance, 04/24/22 9:43:00 EDT, ER Tablet, [facility], Partial fill upon patient request if [...] Active Obese class I(Confirmed) Active BHN/CCA/AUDRA-Mignon Peters [phone]/Health [facility] active care coordination(Confirmed) Active Peripheral vascular disease(Confirmed) Active Uncontrolled type 1 diabetes mellitus with hyperglycemia, with long-term current use of insulin(Confirmed) Active Umbilical hernia(Confirmed) Active 1per [address] [facility] notes Social History Social History Type Response Smoking Status Never (less than 100 in lifetime) entered on: 09/03/19 Sex 1per pt
--- OUTSIDE RECORDS SUMMARY | 2023-02-20 15:12 | XMS_ITS | Continuity of Care Document ---
Author Name Unknown Organization [facility] Address [address] [place] [address]- Care Team Providers Care Journeyman Wireman Name Role Phone Sangeetha MOSHER, Marcia Koroma Primary Care Physician [phone] Encounter [facility] Date(s): 02/11/21 - 03/13/21 [facility] [address], [place] [address] Attending Physician: Admtr, Satish Allergies, Adverse Reactions, Alerts Substance Reaction Severity [...] Note: VIS GIVEN-DATED 05/30/11 2Result Comment: LOT [id number] EXP 04 MAY 2010 3Admin Note: VIS given Medications albuterol 90 mcg/inh inhalation powder 2 puffs, Inhalation, Every 6 hours, PRN as needed, # 1 each, 11 Refills, Maintenance, 12/08/20 11:02:00 EST, Powder, [facility] #[id number], 2 puffs Inhalation Every 6 hours,PRN:as needed, 170, cm, 05/20/20 14:48:00 EDT, Height, 100.5, kg, ... Start Date: 12/08/20 Status: Ordered Alcohol Wipes [...] 07/30/20 18:34:00 EDT, Route to Pharmacy Electronically, [facility] #[id number], 170, cm, 05/20/20 14:48:00 EDT, Height, 100.5, kg, 05/30/19 9:39:00 EDT, Dry... Start Date: 07/30/20 Stop Date: 07/25/21 Status: Ordered aspirin 81 mg oral delayed release tablet 81 mg, 1, tablet, By Mouth, Daily, # 30 tablet, Refills 11, Tot. Refills 11, Maintenance, 05/20/20 14:45:00 EDT, Route to Pharmacy Electronically, [facility] #[id number], 170, cm, 05/20/20 14:08:00 EDT, Height, 100.5, kg, 05/30/19 9:39:00 EDT, Start Date: 05/20/20 Status: Ordered atorvastatin 10 mg oral tablet 1 tablet = 10 mg, By Mouth, Daily, # 30 tablet, 11 Refills, Maintenance, 05/20/20 14:46:00 EDT, [facility] #[id number], 170, cm, 05/20/20 14:08:00 EDT, Height, 100.5, [...] mL, 3 Refills, Maintenance, 01/29/21 9:00:00 EDT, [facility] #[id number], 170, cm, 12/21/20 9:18:00 EST, Height, 100.5, kg, 05/30/19 9:39:00 EDT, Dry Weight Start Date: 01/29/21 Status: Ordered lisinopril 40 mg oral tablet 1 tablet = 40 mg, By Mouth, Daily, # 90 tablet, 4 Refills, Maintenance, 02/03/20 12:39:00 EDT, Tablet, [facility] #[id number], 170, cm, 12/16/19 10:11:00 EST, Height, 100.5, [...] mL, 1 Refills, Maintenance, 12/17/20 13:06:00 EST, [facility] #[id number], 170, cm, 05/20/2014:48:00 EDT, Height, 100.5, kg, 05/30/19 9:39:00 E... Start Date: 12/17/20 Status: Ordered OXcarbazepine 300 mg oral tablet TK 1 T PO BID Start Date: 01/29/19 Status: Ordered PARoxetine 40 mg oral tablet TK 1 T PO HS Start Date: 01/29/19 Status: Ordered Pen [place], 31 G x 5 mm BD Ultra Fine III See Instructions, # 150 each, Refills 11, Tot. Refills 11, Maintenance, use to inject insulin up tofive times daily dx e11.9, 10/21/20 15:55:00 EST, Supply, 170, cm, 05/20/20 14:48:00 EDT, Height, 100.5, kg, 05/30/19 9:39:00 EDT, Dry Weight Start Date: 10/21/20 Status: Ordered Pen [place], 31 G x 5 mm BD Ultra [...] 2 Refills, Maintenance, 02/11/21 11:27:00 EDT, Tablet, [facility] #[id number], pt needs labs; to replace 50 mg dose;, 170, cm, 12/21/20... Start Date: 02/11/21 Status: Ordered traZODone 300 mg oral tablet TK 1 T PO HS Start Date: 01/29/19 Status: Ordered Trulicity Pen 1.5 mg/0.5 mL subcutaneous solution 0.5 mL = 1.5 mg, Subcutaneous Injection, Every week, # 2.5 mL, 5 Refills, Maintenance, 02/01/21 14:49:00 EDT, Solution, [facility] #[id number], to replace 0.75 mg dose, 170, cm, [...] Microalbuminuria(Confirmed) Active Morbid obesity(Confirmed) Active BHN/CCA/AUDRA-Mignon Peters [phone]/Health [facility] active care coordination(Confirmed) Active Peripheral vascular disease(Confirmed) Active Umbilical hernia(Confirmed) Active 1per 2017 and 2019 [facility] notes Social History Social History Type Response Smoking Status Never (less than 100 in lifetime) entered on: 09/03/19 Sex Female 1per pt
--- OUTSIDE RECORDS SUMMARY | 2023-02-20 15:12 | XMS_ITS | Continuity of Care Document ---
Author Name Unknown Organization [facility] Address [address] [place] [address]- Care Team Providers Care Aviation Maintenance Instructor Name Role Phone Josef MOSHER, Mamie Patterson Primary Care Physician Encounter [facility] [place] Date(s): 11/15/21 - 12/17/21 [facility] [address], [place] [address] Attending Physician: Luis F Rowland MD [...] Note: VIS GIVEN-DATED 05/30/11 2Result Comment: LOT [id number] EXP 04 MAY 2010 3Admin Note: VIS [...] 07/20/21 9:24:00 EDT, Route to Pharmacy Electronically, [facility] #[id number], 170, cm, 07/20/21 8:57:00 EDT, Height Start Date: 07/20/21 Stop Date: 10/13/22 Status: Ordered atorvastatin 10 mg oral tablet 1 tablet, By Mouth, Daily, # 90 tablet, 1 Refills, Maintenance, 12/13/21 19:21:00 EST, [facility] #[id number], 170, cm, 07/28/21 10:50:00 EDT, Height Start Date: 12/13/21 Status: Ordered Freestyle Lite Test Strips See [...] 07/20/21 9:33:00 EDT, Route to Pharmacy Electronically, [facility] #[id number], Partial fill upon patient request if the prescription is for a schedule II opi... Start Date: 07/20/21 Stop Date: 10/18/21 Status: Ordered insulin aspart 100 units/mL subcutaneous solution = 20 units, Subcutaneous Injection, 3 times a day before meals, 90 day supply as requested, # 30 mL, 0 Refills, Maintenance, 12/16/21 12:02:00 EST, Solution, [facility] #[id number], Partial fillupon patient request if the prescription is for a s... Start Date: 12/16/21 Stop Date: 01/15/22 Status: Ordered Insulin Syringe, BD Ultra-Fine 0.5 [...] tablet, 11 Refills, Maintenance, 10/24/21 9:05:00 EST, [facility], 170, cm, 07/28/21 10:50:00 EDT, Height Start Date: 10/24/21 Status: Ordered Januvia 50 mg oral tablet 1 tablet = 50 mg, By Mouth, Daily, dose decreased, # 30 tablet, 11 Refills, Maintenance, 09/20/21 13:40:00 EST, Tablet, [facility] #[id number], Partial fill upon patient request if the prescription is for a schedule II opioid drug., 170, cm, 07/07... Start Date: 09/20/21 Status: Ordered lisinopril 40 mg oral tablet 1 tablet = 40 mg, By Mouth, Daily, # 90 tablet, 4 Refills, Maintenance, 07/20/21 9:25:00 EDT, Tablet, [facility] #[id number], 170, cm, 07/20/21 8:57:00 EDT, Height Start Date: 07/20/21 Stop Date: 10/13/22 Status: Ordered Melatonin 5 mg oral tablet 0 Refills, Maintenance, 01/29/19 10:09:09 EDT Start Date: 01/29/19 Status: Ordered OXcarbazepine 300 mg oral tablet TK 1 T PO BID Start Date: 01/29/19 Status: Ordered PARoxetine 40 mg oral tablet TK 1 T PO HS Start Date: 01/29/19 Status: Ordered Pen [place], 31 G x 5 mm BD Ultra Fine III See Instructions, # 300 each, Refills 4, Tot. Refills 4, Maintenance, Use for injection of insulin up to 5 times daily. For type 2 diabetes mellitus., 09/28/22 13:05:00 EST, if possible please give box rather than bag as patient has difficulty when pe... Start Date: 09/28/22 Stop Date: 12/22/23 Status: Ordered Pen [place], 31 G x 5 mm BD Ultra Fine III See Instructions, # 150 each, Refills 11, Tot. Refills 11, Maintenance, use to inject insulin up tofive times daily dx e11.9, 10/21/20 15:55:00 EST, Supply, 170, cm, 05/20/20 14:48:00 EDT, Height, 100.5, kg, 05/30/19 9:39:00 EDT, Dry Weight Start Date: 10/21/20 Status: Ordered Pen [place], 31 G x 5 mm BD Ultra Fine III See Instructions, for 90 days, # 300 each, Refills 4, Tot. Refills 4, Hard Stop 09/28/22 13:05:00 EST, Use for injection of insulin up to 5 times daily. For type 2 diabetes mellitus., 07/05/21 13:05:00 EDT, if possible please give box rather than bag... Start Date: 07/05/21 Stop Date: 09/28/22 Status: [...] FOR 14 DAYS, # 15 Gm, 0 Refills,[facility] #[id number], 14, APPLY TOPICALLY TO THE AFFECTED AREA TWICE DAILY FOR 14 DAYS, 170,cm, 07/28/21 10:50:00 EDT, Height Start Date: 11/02/21 Status: Ordered Trulicity Pen 3 mg/0.5 mL subcutaneous solution 0.5 mL = 3 mg, Subcutaneous Injection, Every week, rotate injection sites, # 2 mL, 0 Refills, Maintenance, 11/30/21 14:02:00 EST, Solution, [facility] #[id number], Partial fill upon patient request if the prescription is for a schedule II opioid... Start Date: 11/30/21 Status: Ordered Ventolin HFA 108 mcg/inh inhalation aerosol with adapter 1 puffs, Inhalation, 4 times a day, PRN for wheezing, # 8 Gm, 2 Refills, Maintenance, 09/22/21 11:41:00 EST, Aerosol, [facility] #[id number], Partial fill upon patient request if the prescription is for a schedule II opioid drug., 170, cm, 07/28/... Start Date: 09/22/21 Status: Ordered Vraylar 3 [...] Microalbuminuria(Confirmed) Active Morbid obesity(Confirmed) Active BHN/CCA/AUDRA-Mignon Peters [phone]/[facility] active care coordination(Confirmed) Active Peripheral vascular disease(Confirmed) Active Umbilical hernia(Confirmed) Active 1per 2017 and 2018 [facility] notes Social History Social History Type Response Smoking Status Never (less than 100 in lifetime) entered on: 09/03/19 Sex Female 1per pt
--- OUTSIDE RECORDS SUMMARY | 2023-02-20 15:12 | XMS_ITS | Continuity of Care Document ---
Author Name Unknown Organization [facility] Address [address] [place] [address]- Care Team Providers Care Locomotive Operator Name Role Phone Olivier MOSHER, Allegra Primary Care Physician [phone] Encounter [facility] Date(s): 12/15/22 - 01/14/23 [facility] [address] [place] [id number] Allergies, Adverse Reactions, Alerts Substance Reaction Severity Status ibuprofen ABD PAIN Active morphine Vomiting and itchy Active traMADol Itchy, Hives Active Immunizations Given and Recorded Vaccine Date Status Refusal Reason SARS-CoV-2 mRNA ([id number]) vax 02/22/22 Recorded SARS-CoV-2 (COVID-19) mRNA BNT-162b2 [...] Note: VIS GIVEN-DATED 05/30/11 2Result Comment: LOT [id number] EXP 04 MAY 2010 3Admin Note: VIS [...] 0 Refills, Maintenance, 05/01/22 12:34:00 EDT, Lotion, [facility]/pharmacy #[id number], Partial fill upon patient request if the prescription is for a schedule II opioid drug., 1 application Topically 2 times a da... Start Date: 05/01/22 Stop Date: 05/31/22 Status: Ordered aspirin 81 mg oral delayed release tablet 81 mg, By Mouth, Daily, # 30 tablet, Refills 2, Tot. Refills 2, Maintenance, 12/25/22 11:05:00 EST,Route to Pharmacy Electronically, [facility]/pharmacy #[id number], Partial fill upon [...] 07/26/22 16:13:00 EDT, Route to Pharmacy Electronically, [facility]/pharmacy #[id number], Partial fill upon patient request if the pres... Start Date: 07/26/22 Stop Date: 01/22/23 Status: Ordered carvedilol 25 mg oral tablet 25 mg, 1, tablet, By Mouth, 2 times a day, # 60 tablet, Refills 2, Tot. Refills 2, Maintenance, 01/22/23 16:13:00 EDT, Route to Pharmacy Electronically, [facility]/pharmacy #[id number], Partial fill upon [...] 0 Refills, Maintenance, 09/21/22 11:57:00 EST, Tablet, [facility]/pharmacy #[id number], Partial fill upon [...] 10/16/22 10:25:00 EST, Route to Pharmacy Electronically, [facility] #[id number], Partial fill upon patientrequest if the prescription [...] each, 0 Refills, Maintenance, 01/03/23 15:48:00 EST, [facility]/pharmacy #[id number], Partial fill upon [...] 09/20/22 11:19:00 EST, Route to Pharmacy Electronically, [facility]/pharmacy #[id number], Partial fillupon patient request if the prescription is for a s... Start Date: 09/20/22 Status: Ordered levoFLOXacin 250 mg oral tablet 1 tablet = 250 mg, By Mouth, Every 24 hours, # 14 tablet, 0 Refills, Maintenance, 09/20/22 11:28:00EST, Tablet, [facility]/pharmacy #[id number], Partial fill upon patient request if the prescription is for a schedule II opioid drug., 169yadi, 09/20/22 9:22:00 EST... Start Date: 09/20/22 Stop Date: 10/04/22 Status: Ordered lisinopril 10 mg oral tablet 10 mg, 1, tablet, By Mouth, Daily, # 90 tablet, Refills 0, Tot. Refills 0, Maintenance, 11/30/22 8:10:00 EST, Route to Pharmacy Electronically, [facility]/pharmacy #[id number], Partial fill upon [...] tablet, 0 Refills, Maintenance, 11/28/22 13:29:00 EST, [facility]/pharmacy #[id number], Partial fill upon patient request if the prescription is for a schedule II opioid drug., 169,... Start Date: 11/28/22 Status: Ordered oxyCODONE 10 mg oral tablet 1 tablet = 10 mg, By Mouth, Every 12 hours, PRN Pain , Moderate, # 30 tablet, 0 Refills, Maintenance, 01/12/23 13:41:00 EST, [facility]/pharmacy #[id number], Partial fill upon patient request if the prescription is for a schedule II opioid drug., 169, yadi, 11/28/22... Start Date: 01/12/23 Status: Ordered PARoxetine 40 mg oral tablet 40 mg, 1, tablet, By Mouth, Daily, Refills 0, Maintenance, 01/11/22 9:43:00 EST Start Date: 01/11/22 Status: Ordered Pen [place], 31 G x 5 mm BD Ultra [...] 0 Refills, Maintenance, 11/22/22 12:11:00 EST, Ointment, [facility]/pharmacy #[id number], Partial fill upon [...] Active Morbid obesity Confirmed Active BHN/CCA/[facility]- [facility] [phone] nursing home active care coordination Confirmed Active Peripheral vascular disease - right SFA angioplasty/right great toe amputation 2021 Confirmed Active Severe obesity (BMI 35.0-39.9) with comorbidity Confirmed Active Umbilical hernia Confirmed Active 1per 2016 and 2019 [facility] notes Social History Social History Type Response Smoking Status Never (less than 100 in lifetime) entered on: 09/03/19 Sex 1per pt Patient Care team information Care Team Personnel Name: Allegra Aguayo MD Position: [facility] Resident Member Role: PCP Address: Address: [address] [place] [address]- Name: Vera Locke RN Position: S RN Member Role: Primary Care Nurse Name: Baljit Martínez RN Position: [facility] RN Member Role: Primary Care Nurse Name: Sabine Guthrie RN Position: [facility] RN Member Role: Primary Care Nurse Name: Aditi Hernandez RN Position: [facility] RN Member Role: Primary Care Nurse Name: Piyush Moore RN Position: [facility] RN Member Role: Primary Care Nurse Name: Mis Vences RN Position: [facility] RN Member Role: Primary Care Nurse Name: Angie Lopez RN Position: [facility] RN Member Role: Primary Care Nurse Name: Lizzie Estrada RN Position: [facility] Onco RN Member Role: Primary Care Nurse Care Team Related Persons Name: MIKEY SEAY Address: home [address] [address] Name: MIKEY AYALA Address: home [address] [place] [address] Name: TANIA COPPOLA Address: home [address] [place] [address] Name: TANIA MUÑIZ Address: home [address] [place] [id number]
--- OUTSIDE RECORDS SUMMARY | 2023-02-20 15:12 | XMS_ITS | Continuity of Care Document ---
Author Name Unknown Organization [facility] Address [address] [place] [address]- Care Team Providers Care Golf Range Attendant Name Role Phone Allegra Aguayo MD Primary Care Physician Encounter [facility] [place] Date(s): 11/28/22 - 01/21/23 [facility] [address] [place] [address] Attending Physician: Not on Staff, Attending MD Allergies, Adverse Reactions, Alerts Substance Reaction Severity Status ibuprofen ABD PAIN Active morphine Vomiting and itchy Active traMADol Itchy, Hives Active Immunizations Given and Recorded Vaccine Date Status Refusal Reason SARS-CoV-2 mRNA ([id number]) vax 02/22/22 Recorded SARS-CoV-2 (COVID-19) mRNA BNT-162b2 [...] Note: VIS GIVEN-DATED 05/30/11 2Result Comment: LOT [id number] EXP 04 MAY 2010 3Admin Note: VIS [...] 04/24/22 9:05:00 EDT, Route to Pharmacy Electronically, [facility], Partial fill upon patient request if the prescription is for a schedule II opio... Start Date: 04/24/22 Status: Ordered ammonium lactate 5% topical lotion 1 application, Topically, 2 times a day, # 240 Gm, 0 Refills, Maintenance, 05/01/22 12:34:00 EDT, Lotion, [facility]/pharmacy #[id number], Partial fill upon patient request if the prescription is for a schedule II opioid drug., 1 application Topically 2 times a da... Start Date: 05/01/22 Stop Date: 05/31/22 Status: Ordered aspirin 81 mg oral delayed release tablet 81 mg, By Mouth, Daily, # 30 tablet, Refills 2, Tot. Refills 2, Maintenance, 12/25/22 11:05:00 EST,Route to Pharmacy Electronically, [facility]/pharmacy #[id number], Partial fill upon patient request if the prescription is for a schedule II opioid drug., 169, cm,... Start Date: 12/25/22 Stop Date: 03/25/23 Status: Ordered atorvastatin 40 mg oral tablet 1 tablet = 40 mg, By Mouth, Daily, # 90 tablet, 2 Refills, Maintenance, 04/24/22 9:41:00 EDT, Tablet, [facility], Partial fill upon patient request if [...] 07/26/22 16:13:00 EDT, Route to Pharmacy Electronically, [facility]/pharmacy #[id number], Partial fill upon patient [...] 03/16/22 14:30:00 EDT, Route to Pharmacy Electronically, [facility], Partial fill upon patient request if [...] 0 Refills, Maintenance, 09/21/22 11:57:00 EST, Tablet, [facility]/pharmacy #[id number], Partial fill upon patient [...] 10/16/22 10:25:00 EST, Route to Pharmacy Electronically, [facility] #[id number], Partial fill upon patientrequest if the prescription [...] each, 0 Refills, Maintenance, 01/03/23 15:48:00 EST, [facility]/pharmacy #[id number], Partial fill upon patient request if the prescription is for a schedule II opioid drug., 169, cm, 11/28/22... Start Date: 01/03/23 Stop Date: 02/02/23 Status: Ordered Lasix 20 mg oral tablet 1, capsule, By Mouth, Once, take one pill daily for 3 days, # 3 tablet, Refills 0, Tot. Refills 0, Soft Stop, 09/20/22 11:19:00 EST, Route to Pharmacy Electronically, [facility]/pharmacy #[id number], Partial fillupon patient request if the prescription is for a s... Start Date: 09/20/22 Status: Ordered levoFLOXacin 250 mg oral tablet 1 tablet = 250 mg, By Mouth, Every 24 hours, # 14 tablet, 0 Refills, Maintenance, 09/20/22 11:28:00EST, Tablet, [facility]/pharmacy #[id number], Partial fill upon patient request if the prescription is for a schedule II opioid drug., 169, cm, 09/20/22 9:22:00 EST... Start Date: 09/20/22 Stop Date: 10/04/22 Status: Ordered lisinopril 10 mg oral tablet 10 mg, 1, tablet, By Mouth, Daily, # 90 tablet, Refills 0, Tot. Refills 0, Maintenance, 11/30/22 8:10:00 EST, Route to Pharmacy Electronically, [facility]/pharmacy #[id number], Partial fill upon patient [...] tablet, 0 Refills, Maintenance, 11/28/22 13:29:00 EST, [facility]/pharmacy #[id number], Partial fill upon patient request if the prescription is for a schedule II opioid drug., 169,... Start Date: 11/28/22 Status: Ordered oxyCODONE 10 mg oral tablet 1 tablet = 10 mg, By Mouth, Every 12 hours, PRN Pain , Moderate, # 30 tablet, 0 Refills, Maintenance, 01/12/23 13:41:00 EST, [facility]/pharmacy #[id number], Partial fill upon patient request if the prescription is for a schedule II opioid drug., 169, cm, 11/28/22... Start Date: 01/12/23 Status: Ordered PARoxetine 40 mg oral tablet 40 mg, 1, tablet, By Mouth, Daily, Refills 0, Maintenance, 01/11/22 9:43:00 EST Start Date: 01/11/22 Status: Ordered Pen [place], 31 G x 5 mm BD Ultra [...] 04/24/22 9:03:00 EDT, Route to Pharmacy Electronically, [facility], Partial fill upon patient request if [...] 0 Refills, Maintenance, 11/22/22 12:11:00 EST, Ointment, [facility]/pharmacy #[id number], Partial fill upon patient [...] 2 Refills, Maintenance, 10/16/22 13:14:00 EST, Solution, [facility]/pharmacy #[id number], Partial fill upon patient [...] Active Morbid obesity Confirmed Active BHN/CCA/CP- Angle [id number] residential active care coordination Confirmed Active Peripheral vascular disease - right SFA angioplasty/right great toe amputation 2021 Confirmed Active Severe obesity (BMI 35.0-39.9) with comorbidity Confirmed Active Umbilical hernia Confirmed Active 1per 2017 and 2019 [facility] notes Social History Social History Type Response Smoking Status Never (less than 100 in lifetime) entered on: 09/03/19 Sex 1per pt Patient Care team information Care Team Personnel Name: Allegra Aguayo MD Position: [facility] Resident Member Role: PCP Address: Address: [address] [place] [address] Name: Vera Locke RN Position: [facility] RN Member Role: Primary Care Nurse Name: Mauricio RNBaljit Position: [facility] ED RN W/OE and Tasks Member Role: Primary Care Nurse Name: Sabine Guthrie RN Position: [facility] RN Member Role: Primary Care Nurse Name: Aditi Hernandez RN Position: [facility] RN Member Role: Primary Care Nurse Name: Piyush Moore RN Position: [facility] RN Member Role: Primary Care Nurse Name: Mis Vences RN Position: [facility] RN Member Role: Primary Care Nurse Name: Angie Lopez RN Position: [facility] RN Member Role: Primary Care Nurse Name: Lizzie Estrada RN Position: [facility] Onco RN Member Role: Primary Care Nurse Care Team Related Persons Name: MIKEY SEAY Address: home [address] [address] Name: MIKEY AYALA Address: home [address] [place] [address] Name: TANIA COPPOLA Address: home [address] [place] [address] Name: TANIA MUÑIZ Address: home [address] [place] [id number]
--- OUTSIDE RECORDS SUMMARY | 2023-02-20 15:12 | XMS_ITS | Continuity of Care Document ---
Author Name Unknown Organization [facility] Address [address] [place] [address]- Care Team Providers Care Senior Policy Analyst Name Role Phone Allegra Aguayo MD Primary Care Physician [phone] [place] [facility] [place] 09/23/22 - 11/11/22 [facility] [address] [place] [address]- Attending Physician: Not on Staff, Attending MD Allergies, Adverse Reactions, Alerts Substance Reaction Severity Status ibuprofen ABD PAIN Active morphine Vomiting and itchy Active traMADol Itchy, Hives Active Immunizations Given and Recorded Vaccine Date Status Refusal Reason SARS-CoV-2 mRNA ([id number]-ptjx-khahc) vax 02/22/22 Recorded SARS-CoV-2 (COVID-19) mRNA BNT-162b2 [...] Note: VIS GIVEN-DATED 05/30/11 2Result Comment: LOT [id number] EXP 04 MAY 2010 3Admin Note: VIS [...] 04/24/22 9:05:00 EDT, Route to Pharmacy Electronically, [facility], Partial fill upon patient request if the prescription is for a schedule II opio... Start Date: 04/24/22 Status: Ordered ammonium lactate 5% topical lotion 1 application, Topically, 2 times a day, # 240 Gm, 0 Refills, Maintenance, 05/01/22 12:34:00 EDT, Lotion, [facility]/pharmacy #[id number], Partial fill upon patient request if the prescription is for a schedule II opioid drug., 1 application Topically 2 times a da... Start Date: 05/01/22 Stop Date: 05/31/22 Status: Ordered aspirin 81 mg oral delayed release tablet 81 mg, By Mouth, Daily, # 30 tablet, Refills 0, Tot. Refills 0, Maintenance, 11/09/22 16:40:00 EST,Route to Pharmacy Electronically, [facility]/pharmacy #[id number], Partial fill upon patient request if the prescription is for a schedule II opioid drug., 169, cm,... Start Date: 11/09/22 Stop Date: 12/09/22 Status: Ordered atorvastatin 40 mg oral tablet 1 tablet = 40 mg, By Mouth, Daily, # 90 tablet, 2 Refills, Maintenance, 04/24/22 9:41:00 EDT, Tablet, [facility], Partial fill upon patient request if the [...] 07/26/22 16:13:00 EDT, Route to Pharmacy Electronically, [facility]/pharmacy #[id number], Partial fill upon patient [...] 03/16/22 14:30:00 EDT, Route to Pharmacy Electronically, [facility], Partial fill upon patient request if the [...] 0 Refills, Maintenance, 09/21/22 11:57:00 EST, Tablet, [facility]/pharmacy #[id number], Partial fill upon patient [...] 10/16/22 10:25:00 EST, Route to Pharmacy Electronically, [facility] #[id number], Partial fill upon patientrequest if the prescription [...] Refills, Soft Stop, 10/16/22 8:19:00 EST, Solution, [facility]/pharmacy #[id number], Partial fill upon patient [...] 09/20/22 11:19:00 EST, Route to Pharmacy Electronically, [facility]/pharmacy #[id number], Partial fillupon patient request if the prescription is for a s... Start Date: 09/20/22 Status: Ordered levoFLOXacin 250 mg oral tablet 1 tablet = 250 mg, By Mouth, Every 24 hours, # 14 tablet, 0 Refills, Maintenance, 09/20/22 11:28:00EST, Tablet, [facility]/pharmacy #[id number], Partial fill upon patient request if the prescription is for a schedule II opioid drug., 169, cm, 09/20/22 9:22:00 EST... Start Date: 09/20/22 Stop Date: 10/04/22 Status: Ordered lisinopril 10 mg oral tablet 10 mg, 1, tablet, By Mouth, Daily, # 90 tablet, Refills 1, Tot. Refills 1, Maintenance, 10/16/22 10:24:00 EST, Route to Pharmacy Electronically, [facility] #[id number], Partial fill upon patientrequest if the prescription is for a schedule II op... Start Date: 10/16/22 Stop Date: 04/14/23 Status: Ordered NovoLOG FlexPen 100 units/mL injectable solution = 20 units, Subcutaneous Injection, 3 times a day before meals, INJECT 20 UNITS INTO SKIN THREE TIMES DAILY BEFORE A MEAL, # 15 mL, 10 Refills, Maintenance, 08/01/22 16:09:00 EDT, [facility]., 169, cm, 08/01/22 14:14:00 EDT, Height, [...] Acute 11/15/22 10:46:00 EST, 11/01/22 10:46:00 EST, [facility]/pharmacy #[id number], Partial fill upon patient request if the [...] 04/24/22 9:03:00 EDT, Route to Pharmacy Electronically, [facility], Partial fill upon patient request if the [...] 2 Refills, Maintenance, 10/16/22 13:14:00 EST, Solution, [facility]/pharmacy #[id number], Partial fill upon patient request if the prescription is for a schedule II opioid drug., 169, cm, 10/09/22 8:39... Start Date: 10/16/22 Status: Ordered Ventolin HFA 108 mcg/inh inhalation aerosol with adapter 1 puffs, Inhalation, Every 4 hours, PRN NEEDED FOR WHEEZING, # 18 Gm, 0 Refills, Maintenance, 11/02/22 8:15:00 EST, [facility] #[id number], 169, cm, 11/01/22 11:21:00 EST, Height, 103.42, [...] Active Morbid obesity Confirmed Active BHN/CCA/CP- Angle [id number] fpc active care coordination Confirmed Active Peripheral vascular disease - right SFA angioplasty/right great toe amputation 2021 Confirmed Active Severe obesity (BMI 35.0-39.9) with comorbidity Confirmed Active Umbilical hernia Confirmed Active 1per 2016 and 2018 [facility] notes Social History Social History Type Response Smoking Status Never (less than 100 in lifetime) entered on: 09/03/19 Sex 1per pt Patient Care team information Care Team Personnel Name: Allegra Aguayo MD Position: [facility] Resident Member Role: PCP Address: Address: [address] [place] [address] Name: Vera Locke RN Position: S RN [...] Persons Name: MIKEY SEAY Address: home [address] [facility] [address] [place] [address] Name: MIKEY AYALA Address: home [address] [place] [address] Name: TANIA COPPOLA Address: [address] [address] Name: TANIA MUÑIZ Address: [address] [address]
--- OUTSIDE RECORDS SUMMARY | 2023-02-20 15:12 | XMS_ITS | Continuity of Care Document ---
Author Name Unknown Organization [facility] Address [address] [place] [address]- Care Team Providers Care Assembler Truck Trailer Name Role Phone Olivier MOSHER, Allegra Primary Care Physician [phone] Encounter [facility] [place] Date(s): 08/07/22 - 09/06/22 [facility] [address] [place] [address]- Allergies, Adverse Reactions, Alerts Substance Reaction Severity Status ibuprofen ABD PAIN Active morphine Vomiting and itchy Active traMADol Itchy, Hives Active Immunizations Given and Recorded Vaccine Date Status Refusal Reason SARS-CoV-2 mRNA ([id number]) vax 02/22/22 Recorded SARS-CoV-2 (COVID-19) mRNA BNT-162b2 [...] Note: VIS GIVEN-DATED 05/30/11 2Result Comment: LOT [id number] EXP 04 MAY 2010 3Admin Note: VIS [...] 04/24/22 9:05:00 EDT, Route to Pharmacy Electronically, [facility], Partial fill upon patient request if the prescription is for a schedule II opio... Start Date: 04/24/22 Status: Ordered ammonium lactate 5% topical lotion 1 application, Topically, 2 times a day, # 240 Gm, 0 Refills, Maintenance, 05/01/22 12:34:00 EDT, Lotion, [facility]/pharmacy #[id number], Partial fill upon patient request if the prescription is for a schedule II opioid drug., 1 application Topically 2 times a da... Start Date: 05/01/22 Stop Date: 05/31/22 Status: Ordered aspirin 81 mg oral delayed release tablet 81 mg, By Mouth, Daily, # 30 tablet, Refills 5, Tot. Refills 5, Maintenance, 05/13/22 16:40:00 EDT,Route to Pharmacy Electronically, [facility], Partial fill upon patient request if the prescription is for a schedule II opioid drug.,... Start Date: 05/13/22 Stop Date: 11/09/22 Status: Ordered atorvastatin 40 mg oral tablet 1 tablet = 40 mg, By Mouth, Daily, # 90 tablet, 2 Refills, Maintenance, 04/24/22 9:41:00 EDT, Tablet, [facility]., Partial fill upon patient request if [...] 07/26/22 16:13:00 EDT, Route to Pharmacy Electronically, [facility]/pharmacy #[id number], Partial fill upon patient request if the prescription is for a schedule II opi... Start Date: 07/26/22 Stop Date: 01/22/23 Status: Ordered Colace sodium 100 mg oral capsule 100 mg, 1, capsule, By Mouth, 2 times a day, PRN, # 60 capsule, Refills 0, Tot. Refills 0, Maintenance, for constipation, 03/16/22 14:30:00 EDT, Route to Pharmacy Electronically, [facility], Partial fill upon patient request [...] Status: Ordered doxycycline hyclate 100 mg oral tablet 1 tablet = 100 mg, By Mouth, 2 times a day, for 10 days, # 20 tablet, 0 Refills, Acute 09/16/22 11:27:00 EST, 09/06/22 11:27:00 EDT, Tablet, [facility]/pharmacy #[id number], Partial fill upon patient request if the prescription is for a schedule II opioid drug., 1... Start Date: 09/06/22 Stop Date: 09/16/22 Status: Ordered Freestyle Lite Test Strips See Instructions, # 100 each, Refills 3, Tot. Refills 3, Maintenance, USE TO TEST 4 TIMES DAILY, 08/14/22 12:20:00 EDT, Supply, 169, cm, 08/09/22 14:26:00 EDT, Height, 105.22, kg, 08/09/22 14:26:00 EDT, Dry Weight Start Date: 08/14/22 Stop Date: 12/12/22 Status: Ordered furosemide 20 mg oral tablet 20 mg, 1, tablet, By Mouth, Daily, # 30 tablet, Refills 5, Tot. Refills 5, Maintenance, 07/07/22 15:52:00 EDT, Route to Pharmacy Electronically, [facility], Partial fill upon patient request [...] 6 Refills, Soft Stop, 08/01/22 16:09:00EDT, Solution, [facility]., Partial fill upon patient request if the prescription isfor a schedule II opioid drug., 169, cm, 08/01/22 1... Start Date: 08/01/22 Stop Date: 04/22/24 Status: Ordered lisinopril 10 mg oral tablet 10 mg, 1, tablet, By Mouth, Daily, # 90 tablet, Refills 4, Tot. Refills 4, Maintenance, 07/12/22 10:12:00 EDT, Route to Pharmacy Electronically, [facility] #[id number], Partial fill upon patientrequest if the prescription is for a schedule II op... Start Date: 07/12/22 Stop Date: 10/05/23 Status: Ordered NovoLOG FlexPen 100 units/mL injectable solution = 20 units, Subcutaneous Injection, 3 times a day before meals, INJECT 20 UNITS INTO SKIN THREE TIMES DAILY BEFORE A MEAL, # 15 mL, 10 Refills, Maintenance, 08/01/22 16:09:00 EDT, [facility]., 169, cm, 08/01/22 14:14:00 EDT, Height, 104... Start Date: 08/01/22 Stop Date: 04/17/25 Status: Ordered Offloading boot Offloading boot, See Instructions, # 1 each, Refills 0, Tot. Refills 0, Maintenance, Please fit patient Diagnosis: Diabetic foot infection ICD code E11. 621, 07/21/22 8:08:00 EDT, Supply Start Date: 07/21/22 Status: Ordered oxyCODONE 10 mg oral tablet 1 tablet = 10 mg, By Mouth, 2 times a day, for 14 days, # 28 tablet, 0 Refills, Acute 09/11/22 16:30:00 EST, 08/28/22 16:30:00 EDT, [facility]/pharmacy #[id number], Partial fill upon patient request if the prescription is for a schedule II opioid drug., 169, cm, 1... Start Date: 08/28/22 Stop Date: 09/11/22 Status: Ordered PARoxetine 40 mg oral tablet 40 mg, 1, tablet, By Mouth, Daily, Refills 0, Maintenance, 01/11/22 9:43:00 EST Start Date: 01/11/22 Status: Ordered Plavix 75 mg oral tablet 75 mg, 1, tablet, By Mouth, Daily, # 30 tablet, Refills 5, Tot. Refills 5, Maintenance, 04/24/22 9:03:00 EDT, Route to Pharmacy Electronically, [facility], Partial fill upon patient request if the prescription is for a schedule II opio... Start Date: 04/24/22 Status: Ordered ProAir HFA 90 mcg/inh inhalation aerosol 1 puffs, Inhalation, Every 4 hours, PRN as needed for wheezing, # 18 Gm, 0 Refills, Maintenance, 04/18/22 9:51:00 EDT, Aerosol, [facility] Partial fill upon patient request [...] 0 Refills, Maintenance, 03/09/22 14:21:00 EDT, Gel, [facility]., Partial fill upon patient request if the p... Start Date: 03/09/22 Status: Ordered traZODone 300 mg oral tablet 1 tablet = 300 mg, By Mouth, Daily at bedtime Start Date: 03/03/22 Status: Ordered Trulicity Pen 4.5 mg/0.5 mL subcutaneous solution = 0.5 mL, Subcutaneous Injection, Every week, rotate injection sites, # 6 mL, 4 Refills, Maintenance, 07/19/22 10:42:00 EDT, Solution, [facility] #[id number], Partial fill upon patient request if the prescription is for a schedule II opioid drug.... Start Date: 07/19/22 Status: Ordered Tylenol 8 Hour 650 mg oral tablet, extended release 2 tablet = 1,300 mg, By Mouth, Every 8 hours, PRN as needed for pain, # 24 tablet, 0 Refills, Maintenance, 04/24/22 9:43:00 EDT, ER Tablet, [facility] Partial fill upon patient request if the prescription is for a schedule II opioid d... Start Date: 04/24/22 Status: Ordered Ventolin HFA 108 mcg/inh inhalation aerosol with adapter 2 puffs, Inhalation, Every 6 hours, PRN Wheezing/Shortness of Breath, # 8 Gm, 1 Refills, Maintenance, 05/30/22 10:56:00 EDT, [facility], [facility] fill upon patient request if [...] Obese class II Confirmed Active BHN/CCA/CP- Angle [id number] long-term active care coordination Confirmed Active Peripheral vascular disease Confirmed Active Umbilical hernia Confirmed Active 1per 2016 and 2018 [facility] notes Social History Social History Type Response Smoking Status Never (less than 100 in lifetime) entered on: 09/03/19 Sex 1per pt Patient Care team information Personnel Name: Allegra Aguayo MD Address: Address: [address] [place] [address]
--- OUTSIDE RECORDS SUMMARY | 2023-02-20 15:12 | XMS_ITS | Continuity of Care Document ---
Author Name Unknown Organization [facility] ter Address [address] [place] [address]- Care Team Providers Care Dentist/Owner Name Role Phone ChristinaAntionejean GEORGES Saima Mohsen Primary Care Physici an En[place] [facility] [place] Date(s): 11/18/19 - 01/10/[address] [address]- [facility] Attending Physician: Yon Johnson MD Admitting Physician: Yon Johnson MD Referring Physician: Mamie Bahena MD Allergies, [...] Note: VIS GIVEN-DATED 05/30/11 2Result Comment: LOT [id number] EXP 04 MAY 2010 3Admin Note: VIS [...] 01/29/19 10:06:52 EDT, Route to Pharmacy Electronically, [id number], [email or web address] [id number] Start Date: 01/29/19 Stop Date: 01/24/20 Status: [...] 03/06/19 17:12:53 EDT, Route to Pharmacy Electronically, [id number], [id number] Start Date: 03/06/19 Status: Ordered insulin glargine [...] 05/13/19 13:22:55 EDT, pt was transferred to [facility], all meds left beh... Start Date: 05/13/19 [...] HS Start Date: 01/29/19 Status: Ordered Pen [place], 31 G x 5 mm BD Ultra [...] 6 Refills, Maintenance, 12/16/19 10:57:00 EST, [facility], [id number], 170, cm, 12/16/19 10:11:00 EST, Height, 100.5, [...] Morbid obesity(Confirmed) Active Umbilical hernia(Confirmed) Active 1per 2017 and 2018 [facility] notes Social History Social History Type Response Smoking Status Never (less than 100 in lifetime) entered on: 09/03/19 Sex Female 1per pt
--- OUTSIDE RECORDS SUMMARY | 2023-02-20 15:12 | XMS_ITS | Continuity of Care Document ---
Author Name Unknown Organization [facility] Address [address] [place] [address]- Care Team Providers Care Laminating Machine Operator Name Role Phone Olivier MOSHER, Allegra Primary Care Physician [phone] Encounter [facility] Date(s): 10/18/22 - 12/09/22 [facility] [address], [place] [address] Attending Physician: Not on Staff, Attending MD Allergies, Adverse Reactions, Alerts Substance Reaction Severity Status ibuprofen ABD PAIN Active morphine Vomiting and itchy Active traMADol Itchy, Hives Active Immunizations Given and Recorded Vaccine Date Status Refusal Reason SARS-CoV-2 mRNA (jeumzrp-zasc-emtsu) vax 02/22/22 Recorded SARS-CoV-2 (COVID-19) mRNA BNT-162b2 [...] Note: VIS GIVEN-DATED 05/30/11 2Result Comment: LOT [id number] EXP 04 MAY 2010 3Admin Note: VIS [...] 04/24/22 9:05:00 EDT, Route to Pharmacy Electronically, [facility], Partial fill upon patient request if the prescription is for a schedule II opio... Start Date: 04/24/22 Status: Ordered ammonium lactate 5% topical lotion 1 application, Topically, 2 times a day, # 240 Gm, 0 Refills, Maintenance, 05/01/22 12:34:00 EDT, Lotion, [facility]/pharmacy #[id number], Partial fill upon patient request if the prescription is for a schedule II opioid drug., 1 application Topically 2 times a da... Start Date: 05/01/22 Stop Date: 05/31/22 Status: Ordered aspirin 81 mg oral delayed release tablet 81 mg, By Mouth, Daily, # 30 tablet, Refills 0, Tot. Refills 0, Maintenance, 11/09/22 16:40:00 EST,Route to Pharmacy Electronically, [facility]/pharmacy #[id number], Partial fill upon patient request if the prescription is for a schedule II opioid drug., 169, cm,... Start Date: 11/09/22 Stop Date: 12/09/22 Status: Ordered atorvastatin 40 mg oral tablet 1 tablet = 40 mg, By Mouth, Daily, # 90 tablet, 2 Refills, Maintenance, 04/24/22 9:41:00 EDT, Tablet, [facility], Partial fill upon patient request if [...] Route to Pharmacy Electronically, [facility]/pharmacy #[id number], Partial fill upon patient request if the pres... Start Date: 07/26/22 Stop Date: 01/22/23 Status: Ordered carvedilol 25 mg oral tablet 25 mg, 1, tablet, By Mouth, 2 times a day, # 60 tablet, Refills 2, Tot. Refills 2, Maintenance, 01/22/23 16:13:00 EDT, Route to Pharmacy Electronically, [facility]/pharmacy #[id number], Partial fill upon patient request if the prescription is for a schedule II opi... Start Date: 01/22/23 Stop Date: 04/22/23 Status: Ordered Colace sodium 100 mg oral capsule 100 mg, 1, capsule, By Mouth, 2 times a day, PRN, # 60 capsule, Refills 0, Tot. Refills 0, Maintenance, for constipation, 03/16/22 14:30:00 EDT, Route to Pharmacy Electronically, [facility], Partial fill upon patient request if [...] 0 Refills, Maintenance, 09/21/22 11:57:00 EST, Tablet, [facility]/pharmacy #[id number], Partial fill upon [...] 10/16/22 10:25:00 EST, Route to Pharmacy Electronically, [facility] #[id number], Partial fill upon patientrequest if the prescription [...] E11.9, # 3 each, 0 Refills, Maintenance, 12/04/22 15:48:00 EST, [facility]/pharmacy #[id number], Partial fill upon patient request if the prescription is for a schedule II opioid drug., 169, cm, 11/28/22... Start Date: 12/04/22 Stop Date: 01/03/23 Status: Ordered Lasix 20 mg oral tablet 1, capsule, By Mouth, Once, take one pill daily for 3 days, # 3 tablet, Refills 0, Tot. Refills 0, Soft Stop, 09/20/22 11:19:00 EST, Route to Pharmacy Electronically, [facility]/pharmacy #[id number], Partial fillupon patient request if the prescription is for a s... Start Date: 09/20/22 Status: Ordered levoFLOXacin 250 mg oral tablet 1 tablet = 250 mg, By Mouth, Every 24 hours, # 14 tablet, 0 Refills, Maintenance, 09/20/22 11:28:00EST, Tablet, [facility]/pharmacy #[id number], Partial fill upon patient request if the prescription is for a schedule II opioid drug., 169, cm, 09/20/22 9:22:00 EST... Start Date: 09/20/22 Stop Date: 10/04/22 Status: Ordered lisinopril 10 mg oral tablet 10 mg, 1, tablet, By Mouth, Daily, # 90 tablet, Refills 0, Tot. Refills 0, Maintenance, 11/30/22 8:10:00 EST, Route to Pharmacy Electronically, [facility]/pharmacy #[id number], Partial fill upon [...] tablet, 0 Refills, Maintenance, 11/28/22 13:29:00 EST, [facility]/pharmacy #[id number], Partial fill upon patient request if the prescription is for a schedule II opioid drug., 169,... Start Date: 11/28/22 Status: Ordered PARoxetine 40 mg oral tablet 40 mg, 1, tablet, By Mouth, Daily, Refills 0, Maintenance, 01/11/22 9:43:00 EST Start Date: 01/11/22 Status: Ordered Pen Addison, 31 G x 5 mm BD Ultra [...] 04/24/22 9:03:00 EDT, Route to Pharmacy Electronically, [facility], Partial fill upon patient request if [...] 0 Refills, Maintenance, 11/22/22 12:11:00 EST, Ointment, [facility]/pharmacy #[id number], Partial fill upon [...] 2 Refills, Maintenance, 10/16/22 13:14:00 EST, Solution, [facility]/pharmacy #[id number], Partial fill upon patient request if the prescription is for a schedule II opioid drug., 169, cm, 10/09/22 8:39... Start Date: 10/16/22 Status: Ordered Ventolin HFA 108 mcg/inh inhalation aerosol with adapter 1 puffs, Inhalation, Every 4 hours, PRN NEEDED FOR WHEEZING, # 18 Gm, 0 Refills, Maintenance, 11/02/22 8:15:00 EST, [facility] #[id number], 169, cm, 11/01/22 11:21:00 EST, Height, 103.42, [...] Active Morbid obesity Confirmed Active BHN/CCA/CP- Angle [id number] senior living active care coordination Confirmed Active Peripheral vascular disease - right SFA angioplasty/right great toe amputation 2021 Confirmed Active Severe obesity (BMI 35.0-39.9) with comorbidity Confirmed Active Umbilical hernia Confirmed Active 1per 2017 and 2019 [facility] notes Social History Social History Type Response Smoking Status Never (less than 100 in lifetime) entered on: 09/03/19 Sex 1per pt Patient Care team information Care Team Personnel Name: Allegra Aguayo MD Position: [facility] Resident Member Role: PCP Address: Address: [address] [place] [address] [place], [place] [address] Name: Vera Locke RN Position: S RN Member Role: Primary Care Nurse Name: Baljit Martínez RN Position: [facility] RN Member Role: Primary Care Nurse Name: Sabine Guthrie RN Position: [facility] RN Member Role: Primary Care Nurse Name: Aditi Hernandez RN Position: [facility] RN Member Role: Primary Care Nurse Name: Piyush Moore RN Position: [facility] RN Member Role: Primary Care Nurse Name: Mis Vences RN Position: [facility] RN Member Role: Primary Care Nurse Name: Angie Lopez RN Position: [facility] RN Member Role: Primary Care Nurse Name: Lizzie Estrada RN Position: [facility] RN Member Role: Primary Care Nurse Care Team Related Persons Name: MIKEY SEAY Address: home [address] [address] Name: MIKEY AYALA Address: home [address] [place] [address] Name: TANIA COPPOLA Address: home [address] [place] [id number] Name: TANIA MUÑIZ Address: home [address] [place] [address]
--- OUTSIDE RECORDS SUMMARY | 2023-02-20 15:12 | XMS_ITS | Continuity of Care Document ---
Author Name Unknown Organization [facility] Address [address] [place] [address]- Care Team Providers Care Assembler Carbon Brushes Name Role Phone Marcia Vivas MD Primary Care Physician Encounter [facility] Date(s): 09/07/20 - 10/15/20 [facility] [address] [place] [address] Attending Physician: Berry Dang MD Admitting Physician: Berry Dang MD Referring Physician: Marcia Vivas MD Allergies, Adverse Reactions, Alerts Substance Reaction [...] Note: VIS GIVEN-DATED 05/30/11 2Result Comment: LOT [id number] EXP 04 MAY 2010 3Admin Note: VIS [...] 07/30/20 18:34:00 EDT, Route to Pharmacy Electronically, [facility] #[id number], 170, cm, 05/20/20 14:48:00 EDT, Height, 100.5, kg, 05/30/19 9:39:00 EDT, Dry... Start Date: 07/30/20 Stop Date: 07/25/21 Status: Ordered aspirin 81 mg oral delayed release tablet 81 mg, 1, tablet, By Mouth, Daily, # 30 tablet, Refills 11, Tot. Refills 11, Maintenance, 05/20/20 14:45:00 EDT, Route to Pharmacy Electronically, [facility] #[id number], 170, cm, 05/20/20 14:08:00 EDT, Height, 100.5, kg, 05/30/19 9:39:00 EDT, Start Date: 05/20/20 Status: Ordered atorvastatin 10 mg oral tablet 1 tablet = 10 mg, By Mouth, Daily, # 30 tablet, 11 Refills, Maintenance, 05/20/20 14:46:00 EDT, [facility] #[id number], 170, cm, 05/20/20 14:08:00 EDT, Height, 100.5, [...] Strips See Instructions, for 30 days, # 120 each, Hard Stop 11/02/20 15:27:00 EST, 4x aday, 10/03/20 15:27:00 EST, Supply, 170, cm, 05/20/20 14:48:00 EDT, Height, 100.5, kg, 05/30/19 9:39:00 EDT, Dry Weight Start Date: 10/03/20 Stop Date: 11/02/20 Status: Ordered Freestyle Lite Test Strips See Instructions, # 120 each, Refills 11, Tot. Refills 11, Maintenance, 4x aday, 11/02/20 15:27:00 EST, Supply, 170, cm, 05/20/20 14:48:00 EDT, Height, 100.5, kg, 05/30/19 9:39:00 EDT, Dry Weight Start Date: 11/02/20 Stop Date: 10/28/21 Status: Ordered gabapentin 100 mg oral capsule 100 mg, 1, capsule, By Mouth, 3 times a day, # 90 capsule, Refills 0, Tot. Refills 0, Maintenance, 03/06/19 17:12:53 EDT, Route to Pharmacy Electronically, [id number], [facility] [id number] Start Date: 03/06/19 Status: Ordered hydrocortisone 0.5% topical ointment 1 application, Topically, 2 times a day, # 28 Gm, 0 Refills, Maintenance, 09/02/20 14:20:00 EDT, Ointment, [facility] #[id number], 1 application Topically 2 times a day, [...] 09/10/20 18:41:00 EST, pt [facility]... Start Date: 09/10/20 Stop Date: 03/09/21 Status: Ordered Insulin Syringe, BD Ultra-Fine 0.5 cc 31 G x 8 mm (516in) See Instructions, # 150 each, Refills 11, Tot. Refills 11, Maintenance, use as directed for Type 2 Diabetes Mellitus to admisiter insulin four times a day. Dx; E11.9, 05/15/21 15:10:00 EDT, pt was transferred to [facility], all meds left beh... Start Date: 05/15/21 Stop Date: 05/10/22 Status: Ordered Lantus 100 u/ml subcutaneous solution = 40 units, Subcutaneous Infusion, 2 times a day, # 15 mL, 3 Refills, Maintenance, 07/30/20 18:34:00 EDT, [facility] #[id number], 170, cm, 05/20/20 14:48:00 EDT, Height, 100.5, kg, 05/30/19 9:39:00 EDT, Dry Weight Start Date: 07/30/20 Stop Date: 11/27/20 Status: Ordered lidocaine 4% topical cream 1 application, Topically, Daily, for 30 days, # 30 Gm, 2 Refills, Acute 11/04/20 13:08:00 EST, 08/06/20 13:08:00 EDT, Cream, [facility] #[id number], 1 application Topically Daily,x30 days, 170, cm, 05/20/20 14:48:00 EDT, Height, 100.5, kg, ... Start Date: 08/06/20 Stop Date: 11/04/20 Status: Ordered lisinopril 40 mg oral tablet 1 tablet = 40 mg, By Mouth, Daily, # 90 tablet, 4 Refills, Maintenance, 02/03/20 12:39:00 EDT, Tablet, [facility] #[id number], 170, cm, 12/16/19 10:11:00 EST, Height, 100.5, kg, 05/30/19 9:39:00EDT, Dry Weight Start Date: 02/03/20 Stop Date: 04/28/21 Status: Ordered Melatonin 5 mg oral tablet 0 Refills, Maintenance, 01/29/19 10:09:09 EDT Start Date: 01/29/19 Status: Ordered NovoLOG 100 units/mL injectable solution = 20 units, Subcutaneous Infusion, 3 times a day before meals, replaces humalog, # 50 mL, 1 Refills, Maintenance, 07/29/20 11:23:00 EDT, [facility] #[id number], 170, cm, 05/20/20 14:48:00 EDT, Height, 100.5, [...] Tablet Start Date: 06/01/19 Status: Ordered sitaGLIPtin 50 mg oral tablet = 50 mg, By Mouth, Daily, # 30 tablet, 0 Refills, Maintenance, 09/02/20 16:16:00 EDT, Tablet, [facility], 170, cm, 05/20/20 14:48:00 EDT, Height, 100.5, kg, 05/30/19 9:39:00 EDT, Dry Weight Start Date: 09/02/20 Status: Ordered traZODone 300 mg oral tablet TK 1 T PO HS Start Date: 01/29/19 Status: Ordered triamcinolone 0.1% topical ointment 1 application, Topically, 2 times a day, apply a thin film to affected area, # 60 Gm, 0 Refills, Maintenance, 05/20/20 15:09:00 EDT, Ointment, [facility] #[id number], 1 application Topically 2 times a day,x14 days,Instr:apply a thin film; to aff... Start Date: 05/20/20 Stop Date: 06/03/20 Status: Ordered Trulicity Pen 1.5 mg/0.5 mL subcutaneous solution 0.5 mL = 1.5 mg, Subcutaneous Injection, Every week, # 2.5 mL, 5 Refills, Maintenance, 07/29/20 8:56:00 EDT, Solution, [facility] #[id number], 170, cm, 05/20/20 14:48:00 EDT, Height, 100.5, kg, 05/30/19 9:39:00 EDT, Dry Weight Start Date: 07/29/20 Stop Date: 01/25/21 Status: Ordered Zofran 4 mg oral tablet [...] Umbilical hernia(Confirmed) Active 1per 2016 and 2018 [facility] notes Social History Social History Type Response Smoking Status Never (less than 100 in lifetime) entered on: 09/03/19 Sex Female 1per pt
--- OUTSIDE RECORDS SUMMARY | 2023-02-20 15:12 | XMS_ITS | Continuity of Care Document ---
Author Name Unknown Organization [facility] Address [address] [place] [address]- Care Team Providers Care Shipyard Painter Apprentice Name Role Phone Olivier MOSHER, Allegra Primary Care Physician Encounter [facility] [place] Date(s): 10/02/22 - 11/15/22 [facility] [address] [place] [address]- Attending Physician: Victor Hugo MOSHER, Aditi Kilgore Admitting Physician: Victor Hugo MOSHER, Aditi Kilgore Referring Physician: Victor Hugo MOSHER, Aditi Kilgore Allergies, Adverse Reactions, Alerts Substance Reaction Severity Status ibuprofen ABD PAIN Active morphine Vomiting and itchy Active traMADol Itchy, Hives Active Immunizations Given and Recorded Vaccine Date Status Refusal Reason SARS-CoV-2 mRNA (lvnkizo-[id number]) vax 02/22/22 Recorded SARS-CoV-2 (COVID-19) mRNA BNT-162b2 [...] Note: VIS GIVEN-DATED 05/30/11 2Result Comment: LOT [id number] EXP 04 MAY 2010 3Admin Note: VIS [...] 04/24/22 9:05:00 EDT, Route to Pharmacy Electronically, [facility], Partial fill upon patient request if the prescription is for a schedule II opio... Start Date: 04/24/22 Status: Ordered ammonium lactate 5% topical lotion 1 application, Topically, 2 times a day, # 240 Gm, 0 Refills, Maintenance, 05/01/22 12:34:00 EDT, Lotion, [facility]/pharmacy #[id number], Partial fill upon patient request if the prescription is for a schedule II opioid drug., 1 application Topically 2 times a da... Start Date: 05/01/22 Stop Date: 05/31/22 Status: Ordered aspirin 81 mg oral delayed release tablet 81 mg, By Mouth, Daily, # 30 tablet, Refills 0, Tot. Refills 0, Maintenance, 11/09/22 16:40:00 EST,Route to Pharmacy Electronically, [facility]/pharmacy #[id number], Partial fill upon patient request if the prescription is for a schedule II opioid drug., 169, cm,... Start Date: 11/09/22 Stop Date: 12/09/22 Status: Ordered atorvastatin 40 mg oral tablet 1 tablet = 40 mg, By Mouth, Daily, # 90 tablet, 2 Refills, Maintenance, 04/24/22 9:41:00 EDT, Tablet, [facility], Partial fill upon patient request if [...] 16:13:00 EDT, Route to Pharmacy Electronically, [facility]/pharmacy #[id number], Partial fill upon patient request if [...] 03/16/22 14:30:00 EDT, Route to Pharmacy Electronically, [facility], Partial fill upon patient request if [...] Refills, Maintenance, 09/21/22 11:57:00 EST, Tablet, [facility]/pharmacy #[id number], Partial fill upon patient request if [...] 10/16/22 10:25:00 EST, [id number], Partial fill upon patientrequest if the prescription [...] Soft Stop, 10/16/22 8:19:00 EST, Solution, [facility]/pharmacy #[id number], Partial fill upon patient request if [...] 11:19:00 EST, Route to Pharmacy Electronically, [facility]/pharmacy #[id number], Partial fillupon patient request if the prescription is for a s... Start Date: 09/20/22 Status: Ordered levoFLOXacin 250 mg oral tablet 1 tablet = 250 mg, By Mouth, Every 24 hours, # 14 tablet, 0 Refills, Maintenance, 09/20/22 11:28:00EST, Tablet, [facility]/pharmacy #[id number], Partial fill upon patient request if the prescription is for a schedule II opioid drug., 169, cm, 09/20/22 9:22:00 EST... Start Date: 09/20/22 Stop Date: 10/04/22 Status: Ordered lisinopril 10 mg oral tablet 10 mg, 1, tablet, By Mouth, Daily, # 90 tablet, Refills 1, Tot. Refills 1, Maintenance, 10/16/22 10:24:00 EST, Route to Pharmacy Electronically, [facility] #[id number], Partial fill upon patientrequest if the prescription is for a schedule II op... Start Date: 10/16/22 Stop Date: 04/14/23 Status: Ordered NovoLOG FlexPen 100 units/mL injectable solution = 20 units, Subcutaneous Injection, 3 times a day before meals, INJECT 20 UNITS INTO SKIN THREE TIMES DAILY BEFORE A MEAL, # 15 mL, 10 Refills, Maintenance, 08/01/22 16:09:00 EDT, [facility], 169, cm, 08/01/22 14:14:00 EDT, Height, [...] 04/24/22 9:03:00 EDT, Route to Pharmacy Electronically, [facility], Partial fill upon patient request if [...] Refills, Maintenance, 10/16/22 13:14:00 EST, Solution, [facility]/pharmacy #[id number], Partial fill upon patient request if the prescription is for a schedule II opioid drug., 169, cm, 10/09/22 8:39... Start Date: 10/16/22 Status: Ordered Ventolin HFA 108 mcg/inh inhalation aerosol with adapter 1 puffs, Inhalation, Every 4 hours, PRN NEEDED FOR WHEEZING, # 18 Gm, 0 Refills, Maintenance, 11/02/22 8:15:00 EST, [facility] #[id number], 169, cm, 11/01/22 11:21:00 EST, Height, 103.42, [...] Active Morbid obesity Confirmed Active BHN/CCA/CP- Angle [id number] [facility] active care coordination Confirmed Active Peripheral vascular disease - right SFA angioplasty/right great toe amputation 2021 Confirmed Active Severe obesity (BMI 35.0-39.9) with comorbidity Confirmed Active Umbilical hernia Confirmed Active 1per 2016 and 2018 [facility] notes Social History Social History Type Response Smoking Status Never (less than 100 in lifetime) entered on: 09/03/19 Sex 1per pt Patient Care team information Care Team Personnel Name: Allegra Aguayo MD Position: [facility] Resident Member Role: PCP Address: Address: [address] [place] [address] Name: Vera Locke RN Position: S RN [...] Member Role: Primary Care Nurse Name: Angie Loepz RN Position: S RN Member Role: Primary Care Nurse Name: Lizzie Estrada RN Position: S RN Member Role: Primary Care Nurse Care Team Related Persons Name: MIKEY SEAY Address: home [address] [address] Name: MIKEY AYALA Address: home [address] [place] [address] Name: TANIA COPPOLA Address: home [address] [place] [address] Name: TANIA MUÑIZ Address: home [address] [place] [id number]
--- OUTSIDE RECORDS SUMMARY | 2023-02-20 15:13 | XMS_ITS | Continuity of Care Document ---
Author Name Unknown Organization [facility] Address [address] [place] [phone]- Care Team Providers Care Soyfreeze Operator Name Role Phone Olivier MOSHER, Allegra [id number] Date[facility]s): [facility]/09/22 - 08/16/22 [facility] [address] [place], [place] [address] Attending Physician: Ashvin DONIS, Zahra Bennett Admitting Physician: Ashvin DONIS, Zahra Bennett Referring Physician: Allegra Aguayo MD Allergies, Adverse Reactions, Alerts Substance Reaction Severity Status ibuprofen ABD PAIN Active morphine Vomiting and itchy Active traMADol Itchy, Hives Active Immunizations Given and Recorded Vaccine Date Status Refusal Reason SARS-CoV-2 mRNA (kncrcpa-csrj-pesuj) vax 02/22/22 Recorded SARS-CoV-2 (COVID-19) mRNA BNT-162b2 [...] Note: VIS GIVEN-DATED 05/30/11 2Result Comment: LOT [id number] EXP 04 MAY 2010 3Admin Note: VIS [...] 04/24/22 9:05:00 EDT, Route to Pharmacy Electronically, [facility], Partial fill upon patient request if the prescription is for a schedule II opio... Start Date: 04/24/22 Status: Ordered ammonium lactate 5% topical lotion 1 application, Topically, 2 times a day, # 240 Gm, 0 Refills, Maintenance, 05/01/22 12:34:00 EDT, Lotion, [facility]/pharmacy #[id number], Partial fill upon patient request if the prescription is for a schedule II opioid drug., 1 application Topically 2 times a da... Start Date: 05/01/22 Stop Date: 05/31/22 Status: Ordered aspirin 81 mg oral delayed release tablet 81 mg, By Mouth, Daily, # 30 tablet, Refills 5, Tot. Refills 5, Maintenance, 05/13/22 16:40:00 EDT,Route to Pharmacy Electronically, [facility], Partial fill upon patient request if the prescription is for a schedule II opioid drug.,... Start Date: 05/13/22 Stop Date: 11/09/22 Status: Ordered atorvastatin 40 mg oral tablet 1 tablet = 40 mg, By Mouth, Daily, # 90 tablet, 2 Refills, Maintenance, 04/24/22 9:41:00 EDT, Tablet, [facility], Partial fill upon patient request if [...] 07/26/22 16:13:00 EDT, Route to Pharmacy Electronically, [facility]/pharmacy #[id number], Partial fill upon patient request if the prescription is for a schedule II opi... Start Date: 07/26/22 Stop Date: 01/22/23 Status: Ordered Colace sodium 100 mg oral capsule 100 mg, 1, capsule, By Mouth, 2 times a day, PRN, # 60 capsule, Refills 0, Tot. Refills 0, Maintenance, for constipation, 03/16/22 14:30:00 EDT, Route to Pharmacy Electronically, [facility], Partial fill upon patient request if [...] 07/07/22 15:52:00 EDT, Route to Pharmacy Electronically, [facility] Partial fill upon patient request if [...] 6 Refills, Soft Stop, 08/01/22 16:09:00EDT, Solution, [facility], Partial fill upon patient request if the prescription isfor a schedule II opioid drug., 169, cm, 08/01/22 1... Start Date: 08/01/22 Stop Date: 04/22/24 Status: Ordered lisinopril 10 mg oral tablet 10 mg, 1, tablet, By Mouth, Daily, # 90 tablet, Refills 4, Tot. Refills 4, Maintenance, 07/12/22 10:12:00 EDT, Route to Pharmacy Electronically, [facility] #[id number], Partial fill upon patientrequest if the prescription is for a schedule II op... Start Date: 07/12/22 Stop Date: 10/05/23 Status: Ordered NovoLOG FlexPen 100 units/mL injectable solution = 20 units, Subcutaneous Injection, 3 times a day before meals, INJECT 20 UNITS INTO SKIN THREE TIMES DAILY BEFORE A MEAL, # 15 mL, 10 Refills, Maintenance, 08/01/22 16:09:00 EDT, [facility] 169, cm, 08/01/22 14:14:00 EDT, Height, [...] days, # 28 tablet, 0 Refills, Acute 08/25/22 8:51:00 EDT, 08/11/22 8:51:00 EDT, [facility]/pharmacy #[id number], Partial fill upon patient request if the prescription is for a schedule II opioid drug., 169, cm, ... Start Date: 08/11/22 Stop Date: 08/25/22 Status: Ordered PARoxetine 40 mg oral tablet 40 mg, 1, tablet, By Mouth, Daily, Refills 0, Maintenance, 01/11/22 9:43:00 EST Start Date: 01/11/22 Status: Ordered Plavix 75 mg oral tablet 75 mg, 1, tablet, By Mouth, Daily, # 30 tablet, Refills 5, Tot. Refills 5, Maintenance, 04/24/22 9:03:00 EDT, Route to Pharmacy Electronically, [facility], Partial fill upon patient request if the prescription is for a schedule II opio... Start Date: 04/24/22 Status: Ordered ProAir HFA 90 mcg/inh inhalation aerosol 1 puffs, Inhalation, Every 4 hours, PRN as needed for wheezing, # 18 Gm, 0 Refills, Maintenance, 04/18/22 9:51:00 EDT, Aerosol, [facility], Partial fill upon patient request if [...] 0 Refills, Maintenance, 03/09/22 14:21:00 EDT, Gel, [facility], Partial fill upon patient request if the p... Start Date: 03/09/22 Status: Ordered traZODone 300 mg oral tablet 1 tablet = 300 mg, By Mouth, Daily at bedtime Start Date: 03/03/22 Status: Ordered Trulicity Pen 4.5 mg/0.5 mL subcutaneous solution = 0.5 mL, Subcutaneous Injection, Every week, rotate injection sites, # 6 mL, 4 Refills, Maintenance, 07/19/22 10:42:00 EDT, Solution, [facility] #[id number], Partial fill upon patient request if the prescription is for a schedule II opioid drug.... Start Date: 07/19/22 Status: Ordered Tylenol 8 Hour 650 mg oral tablet, extended release 2 tablet = 1,300 mg, By Mouth, Every 8 hours, PRN as needed for pain, # 24 tablet, 0 Refills, Maintenance, 04/24/22 9:43:00 EDT, ER Tablet, [facility], Partial fill upon patient request if the prescription is for a schedule II opioid d... Start Date: 04/24/22 Status: Ordered Ventolin HFA 108 mcg/inh inhalation aerosol with adapter 2 puffs, Inhalation, Every 6 hours, PRN Wheezing/Shortness of Breath, # 8 Gm, 1 Refills, Maintenance, 05/30/22 10:56:00 EDT, [facility], Partial fill upon patient request if the prescription is for a schedule II opioid drug., 169, cm,... Start Date: 05/30/22 Status: Ordered Problem List Condition Confirmation Course Effective Dates Status H ealth Status Informant Abdominal pain Confirmed Active Storey's cyst of knee Confirmed Active Cholecystectomy Confirmed Active Diabetes mellitus Confirmed 07/2007 Active Diabetic peripheral neuropathy Confirmed Active Diabetic retinopathy - next due Confirmed 2016 Active Reading difficulty Confirmed Active Dyslipidemia Confirmed Active Hypertension Confirmed Active Microalbuminuria Confirmed Active Morbid obesity Confirmed Active Obese class II Confirmed Active BHN/CCA/CP- [place] [phone] skilled nursing active care coordination Confirmed Active Peripheral vascular disease Confirmed Active Umbilical hernia Confirmed Active 1per 2016 and 2018 [place] notes Vital Signs Most recent to oldest [Reference Range]: 1 Height 169 cm (08/09/22 2:26 PM) Weight 105.22 kg (08/09/22 2:26 PM) Oxygen Saturation [94-100 %] 97 % (08/09/22 2:26 PM) Pulse Rate [55-90 bpm] 81 bpm (08/09/22 2:26 PM) Body Mass Index [18.5-24.99 kg/m2] 36.84 kg/m2 *>HHI* (08/09/22 2:26 PM) Blood Pressure [90-138/55-84 mm Hg] 142/ 88mm Hg *H* (08/09/22 2:26 PM) Mode of Delivery (Oxygen) Room air (08/09/22 2:26 PM) Blood pressure sites Arm, left (08/09/22 2:26 PM) Dry Weight 105.22 kg (08/09/22 2:26 PM) Weight Obtained Via Patient/family state d (08/09/22 2:26 PM) Dry Weight Obtained Via Patient/family s tated (08/09/22 2:26 PM) Social History Social History Type Response Smoking Status Never (less than 100 in lifetime) entered on: 09/03/19 Sex 1per pt Patient Care team information Personnel Name: Allegra Aguayo MD Address: Address: [address] [place] [address]
--- OUTSIDE RECORDS SUMMARY | 2023-02-20 15:13 | XMS_ITS | Continuity of Care Document ---
Author Name Unknown Organization [facility] Address [address] [place] [id number]- Care Team Providers Care Egg Tester Name Role Phone Josef MOSHER, Mamie Patterson Primary Care Physician Encounter [facility] Date(s): 03/03/22 - 03/06/[address] [id number] Encounter Diagnosis Diabetic foot ulcer(Final) - 03/06/22 Discharge Disposition: A-D/C Home Attending Physician: Damon Dean DO Admitting Physician: Dorene MOSHER, Gene P Referring Physician: Not on Staff, Referring MD Allergies, Adverse Reactions, Alerts Substance Reaction Severity Status ibuprofen ABD PAIN Active morphine Vomiting and itchy Active traMADol Itchy, Hives Active Immunizations Given and Recorded Vaccine Date Status Refusal Reason SARS-CoV-2 mRNA (hpdsucx-bpeq-ryuvt) vax 02/22/22 Recorded SARS-CoV-2 (COVID-19) mRNA BNT-162b2 [...] Note: VIS GIVEN-DATED 05/30/11 2Result Comment: LOT [id number] EXP 04 MAY 2010 3Admin Note: VIS [...] EDT, Height Start Date: 07/21/21 Status: Ordered amoxicillin-clavulanate 875 mg-125 mg oral tablet = 875 mg, By Mouth, 3 times a day, for 11 days, # 32 tablet, 0 Refills, Acute 03/17/22 23:00:00 EDT, 03/06/22 23:00:00 EDT, Tablet, [facility], Partial fill upon patient request if the prescription is for a schedule II opioid drug., 169,... Start Date: 03/06/22 Stop Date: 03/17/22 Status: Ordered atorvastatin 10 mg oral tablet 1 tablet, By Mouth, Daily, # 90 tablet, 1 Refills, Maintenance, 12/13/21 19:21:00 EST, [facility] #[id number], 170, cm, 07/28/21 10:50:00 EDT, Height Start [...] Date: 12/29/21 Stop Date: 04/28/22 Status: Ordered Insulin Syringe, BD Ultra-Fine 0.5 [...] oral tablet 1 tablet, By Mouth, Daily, see dose increase, 90 d supply, # 90 tablet, 11 Refills, Maintenance, 02/08/22 9:43:00 EDT, [facility] #[id number], resent - not recvd, 170, cm, 02/08/22 9:14:00 EDT, Height Start Date: 02/08/22 Status: Ordered Lantus Inj 0.3 mL = 30 units, Subcutaneous Injection, 2 times a day, 0 Refills, Maintenance, 03/06/22 15:03:00EDT, Injection, Partial fill upon patient request if the prescription is for a schedule II opioid drug. Start Date: 03/06/22 Status: Ordered NIFEdipine 30 mg oral tablet, extended release 30 mg, 1, tablet, By Mouth, Daily, # 30 tablet, Refills 0, Tot. Refills 0, Maintenance, 03/06/22 15:17:00 EDT, Route to Pharmacy Electronically, [facility], Partial fill upon patient request if the prescription is for a schedule II opioi... Start Date: 03/06/22 Stop Date: 04/05/22 Status: Ordered NIFEdipine 30 mg oral tablet, extended release 30 mg, ER Tablet, By Mouth, 03/06/22 9:00:00 EDT Start Date: 03/06/22 Stop Date: 03/06/22 Status: Completed NovoLOG 100 units/mL injectable solution = 20 units, IV Infusion, 3 times a day before meals, Maintenance, 02/28/22 12:38:00 EDT Start Date: 02/28/22 Status: Ordered Offloading boot Offloading boot, See Instructions, # 1 each, Refills 0, Tot. Refills 0, Maintenance, Diagnosis: Diabetic foot infection ICD code E11. 621, 03/06/22 15:20:00 EDT, Supply, 169, cm, 03/05/22 19:45:00 EDT, Height, 104.9, kg, 03/04/22 2:58:00 EDT, Dry W... Start Date: 03/06/22 Status: Ordered oxyCODONE 5 mg oral tablet 5 mg, 1, tablet, By Mouth, Every 8 hours, PRN, for 3 days, # 9 tablet, Refills 0, Tot. Refills 0, Acute 03/09/22 15:04:00 EDT, Pain , Severe, 03/06/22 15:04:00 EDT, Route to Pharmacy Electronically, [facility], Partial fill upon patient... Start Date: 03/06/22 Stop Date: 03/09/22 Status: Ordered oxyCODONE 5 mg oral tablet 5 mg, Tablet, By Mouth, Every 8 hours, PRN for Pain , Severe, Routine, 03/03/22 9:25:00 EDT Start Date: 03/03/22 Stop Date: 03/10/22 Status: Ordered oxyCODONE 5 mg oral tablet 5 mg, Tablet, By Mouth, Once, PRN for Pain , Severe, STAT, 03/05/22 22:38:00 EDT Start Date: 03/05/22 Stop Date: 03/05/22 Status: Completed PARoxetine 40 mg oral tablet 40 mg, [...] application, # 45 mL, 0 Refills, Maintenance, 03/06/22 15:06:00 EDT, Gel, [facility], Partial fill upon patient request if the pre... Start Date: 03/06/22 Status: Ordered traZODone 300 mg oral tablet 1 tablet = 300 mg, By Mouth, Daily at bedtime Start Date: 03/03/22 Status: Ordered Trulicity Pen 3 mg/0.5 mL subcutaneous solution See Instructions, ADMINISTER 0.5 ML UNDER THE SKIN EVERY WEEK. ROTATE INJECTION SITES, # 2 mL, 11 Refills, 02/15/22 11:38:00 EDT, [facility] #[id number], 170, cm, 02/08/22 9:46:00 EDT, Height Start Date: 02/15/22 Status: Ordered Ventolin HFA 108 mcg/inh inhalation aerosol with adapter 1 puffs, Inhalation, 4 times a day, PRN NEEDED FOR WHEEZING, # 18 Gm, 0 Refills, [facility] #[id number], 170, cm, 01/11/22 9:39:00 EST, Height Start [...] Obese class II(Confirmed) Active BHN/CCA/Luis Felipe Peters [phone]/Health assisted active care coordination(Confirmed) Active Peripheral vascular disease(Confirmed) Active Umbilical hernia(Confirmed) Active 1per 2017 and 2019 [facility] notes Vital Signs Most recent to oldest [Reference Range]: 1 2 3 Height 169 cm (03/05/22 7:45 PM) 169 cm (03/03/22 8:00 PM) Weight 104.9 kg (03/04/22 2:40 AM) Oxygen Saturation [94-100 %] 97 % (03/06/22 7:00 AM) 95 % (03/05/22 7:45 PM) 98 % (03/05/22 3:00 PM) Pulse Rate [55-90 bpm] 85 bpm (03/06/22 7:00 AM) 104 bpm *H* (03/05/22 7:45 PM) 104 bpm *H* (03/05/22 3:00 PM) Body Mass Index [18.5-24.99] 36.73 *>HHI* (03/04/22 2:40 AM) Blood Pressure [90-138/55-84 mm Hg] 152/90mm Hg *H* (03/06/22 9:14 AM) 150/90mm Hg *H* (03/06/22 7:00 AM) 158/82mm Hg *H* (03/05/22 7:45 PM) Respiratory Rate [16-30 br/min] 16 br/min (03/06/22 12:35 PM) 18 br/min (03/06/22 7:00 AM) 16 br/min (03/05/22 11:54 PM) Temperature [96.8-100.4 DegF] 98.3 DegF (03/06/22 7:00 AM) 97.9 DegF (03/05/22 7:45 PM) 97.4 DegF (03/05/22 3:00 PM) Mode of Delivery (Oxygen) Room air (03/06/22 7:00 AM) Room air (03/05/22 7:45 PM) Room air (03/05/22 3:00 PM) Blood pressure sites Arm, right (03/06/22 7:00 AM) Arm, right (03/05/22 7:45 PM) Arm, right (03/05/22 3:00 PM) Temperature Route Oral (03/06/22 7:00 AM) Oral (03/05/22 7:45 PM) Oral (03/05/22 3:00 PM) Dry Weight 104.9 kg (03/04/22 2:40 AM) Social History Social History Type Response Smoking Status Never (less than 100 in lifetime) entered on: 09/03/19 Sex 1per pt
--- OUTSIDE RECORDS SUMMARY | 2023-02-20 15:13 | XMS_ITS | Continuity of Care Document ---
Author Name Unknown Organization [facility] Address [address] [place] [id number]- Care Team Providers Care Senior Marketing Specialist Name Role Phone Josef MOSHER, Mamie Patterson Primary Care Physician [place] [facility] [place] 03/01/[address] [address] Discharge Disposition: A-Transfer VNA/Home Health Attending Physician: Feliz MOSHER, Karyn Rodriguez Admitting Physician: Randal MOSHER, Jing Braga Referring Physician: Not on Staff, Referring MD Allergies, Adverse Reactions, Alerts Substance Reaction Severity Status ibuprofen ABD PAIN Active morphine Vomiting and itchy Active traMADol Itchy, Hives Active Immunizations Given and Recorded Vaccine Date Status Refusal Reason SARS-CoV-2 mRNA (ejbbvfe-gbsc-ytyrg) vax 02/22/22 Recorded SARS-CoV-2 (COVID-19) mRNA BNT-162b2 [...] Note: VIS GIVEN-DATED 05/30/11 2Result Comment: LOT [id number] EXP 04 MAY 2010 3Admin Note: VIS [...] EDT, Height Start Date: 07/21/21 Status: Ordered Acetaminophen Tablet 650 mg, Tablet, By Mouth, Every 4 hours, PRN for Pain , Mild, Temperature Greater than 100.5, Routine, 02/28/22 7:46:00 EDT Start Date: 02/28/22 Stop Date: 03/02/22 Status: Discontinued amLODIPine 10 mg oral tablet 10 mg, Tablet, By Mouth, 03/01/22 9:00:00 EDT Start Date: 03/01/22 Stop Date: 03/01/22 Status: Completed amLODIPine 10 mg oral tablet 10 mg, 1, tablet, By Mouth, Daily, # 90 tablet, Refills 4, Tot. Refills 4, Maintenance, 12/29/21 10:02:00 EST, Route to Pharmacy Electronically, [facility] #[id number], 170, cm, 07/28/21 10:50:00 EDT, Height Start Date: 12/29/21 Stop Date: 03/24/23 Status: Ordered atorvastatin 10 mg oral tablet 1 tablet, By Mouth, Daily, # 90 tablet, 1 Refills, Maintenance, 12/13/21 19:21:00 EST, [facility] #[id number], 170, cm, 07/28/21 10:50:00 EDT, Height Start [...] 12/29/21 10:02:00 EST, Route to Pharmacy Electronically, [facility] #[id number], Partial fill upon patientrequest if the prescription [...] tablet, 11 Refills, Maintenance, 02/08/22 9:43:00 EDT, [facility] #[id number], resent - not recvd, 170, cm, 02/08/22 9:14:00 EDT, Height Start Date: 02/08/22 Status: Ordered Lantus 100 u/ml subcutaneous solution = 40 units, Subcutaneous Injection, 2 times a day, Maintenance, 02/28/22 12:38:00 EDT, Solution Start Date: 02/28/22 Status: Ordered levoFLOXacin 750 mg oral tablet 1 tablet = 750 mg, By Mouth, Every 24 hours, for 5 days, # 5 tablet, 0 Refills, Acute 03/06/22 17:04:00 EDT, 03/01/22 17:04:00 EDT, [facility]/pharmacy #[id number], Partial fill upon patient request if the prescription is for a schedule II opioid drug., 173, cm, 0... Start Date: 03/01/22 Stop Date: 03/06/22 Status: Ordered lisinopril 20 mg oral tablet 40 mg, Tablet, By Mouth, 03/01/22 9:00:00 EDT Start Date: 03/01/22 Stop Date: 03/01/22 Status: Completed lisinopril 40 mg oral tablet 1 tablet = 40 mg, By Mouth, Daily, # 90 tablet, 4 Refills, Maintenance, 07/20/21 9:25:00 EDT, Tablet, [facility] #[id number], 170, cm, 07/20/21 8:57:00 EDT, Height Start Date: 07/20/21 Stop Date: 10/13/22 Status: Ordered metroNIDAZOLE 500 mg oral tablet 1 tablet = 500 mg, By Mouth, 3 times a day, for 5 days, # 15 tablet, 0 Refills, Acute 03/06/22 17:06:00 EDT, 03/01/22 17:06:00 EDT, Tablet, [facility]/pharmacy #[id number], Partial fill upon patient request if the prescription is for a schedule II opioid drug., 17... Start Date: 03/01/22 Stop Date: 03/06/22 Status: Ordered NovoLOG 100 units/mL injectable solution See Instructions, 100 - 149 10 units 150 - 199 12 units 200 - 249 14 units 250 - 299 16 units 300 -349 18 units 350 - 399 20 units, Maintenance, 02/28/22 12:38:00 EDT Start Date: 02/28/22 Status: Ordered oxyCODONE 5 mg oral tablet 5 mg, 1, tablet, By Mouth, Daily at bedtime, PRN, for 5 days, # 5 tablet, Refills 0, Tot. Refills 0, Acute 03/06/22 17:01:00 EDT, Pain , Severe, 03/01/22 17:01:00 EDT, Route to Pharmacy Electronically, [facility]/pharmacy #[id number], Partial fill upon patient req... Start Date: 03/01/22 Stop Date: 03/06/22 Status: Ordered oxyCODONE 5 mg oral tablet 5 mg, Tablet, By Mouth, Every 6 hours for 2 days, PRN for Pain , Severe, Routine, 02/28/22 11:46:00EDT, Stop date 03/02/22 11:45:00 EDT Start Date: 02/28/22 Stop Date: 03/02/22 Status: Discontinued PARoxetine 40 mg oral tablet 40 mg, [...] 2 mL, 11 Refills, 02/15/22 11:38:00 EDT, [facility] #[id number], 170, cm, 02/08/22 9:46:00 EDT, Height Start Date: 02/15/22 Status: Ordered Ventolin HFA 108 mcg/inh inhalation aerosol with adapter 1 puffs, Inhalation, 4 times a day, PRN NEEDED FOR WHEEZING, # 18 Gm, 0 Refills, [facility] #[id number], 170, cm, 01/11/22 9:39:00 EST, Height Start Date: 01/12/22 Status: Ordered Problem List Condition Effective Dates Status Health Status Inform ant Abdominal pain(Confirmed) Active Storey's cyst of knee(Confirmed) Active Cholecystectomy(Confirmed) Active Diabetes mellitus(Confirmed) 07/2007 Active Diabetic peripheral neuropathy(Confirmed) Active Diabetic retinopathy - next due (Confirmed) 1 2016 Active Reading difficulty(Confirmed) Active Dyslipidemia(Confirmed) Active Hypertension(Confirmed) Active Microalbuminuria(Confirmed) Active Morbid obesity(Confirmed) Active Obese class II(Confirmed) Active BHN/[facility]ELVIN/Luis Felipe Peters [phone]/Health jail active care coordination(Confirmed) Active Peripheral vascular disease(Confirmed) Active Umbilical hernia(Confirmed) Active 1per 2016 and 2018 [facility] notes Results Orders for Microbiology Reports Name Date Wound Deep Culture w/ Gram Smear (Deep W ound Culture w/ Gram Smear) 03/01/22 Blood Culture 02/27/22 Blood Culture #2 02/27/22 Microbiology Reports TEST:Deep Wound Culture STATUS:Unauthenticated BODY SITE: SOURCE:ULCER1 COLLECTED DATE/TIME:03/01/22 11:30 AM Deep Wound Culture SPECIMEN DESCRIPTION : ULCER TOE RT GREAT SPECIAL REQUESTS : NONE GRAM STAIN : 1+ SQ.EPITHELIAL CELLS 1+ POLYMORPHONUCLEAR LEUKOCYTES NO ORGANISMS SEEN REPORT STATUS : PRELIMINARY REPORT TEST:Blood Culture, Second Order STATUS:Unauthenticated BODY SITE: SOURCE:Blood COLLECTED DATE/TIME:02/27/22 6:10 PM Blood Culture, Second Order SPECIMEN DESCRIPTION : BLOOD RAC SPECIAL REQUESTS : NONE CULTURE : NO GROWTH AFTER 48 HOURS REPORT STATUS : PRELIMINARY REPORT TEST:Blood Culture STATUS:Unauthenticated BODY SITE: SOURCE:Blood COLLECTED DATE/TIME:02/27/22 6:01 PM Blood Culture SPECIMEN DESCRIPTION : BLOOD LAC SPECIAL REQUESTS : NONE CULTURE : NO GROWTH AFTER 48 HOURS REPORT STATUS : PRELIMINARY REPORT Radiology Reports * Exam Date Time Procedure Performing Provider Status 02/28/22 7:04 AM Foot Min 3 Views Right Cira Valdez; Auth (Verified) Notes: (Foot Min 3 Views Right) Reason For Exam: Pain RESULT: Foot Min 3 Views Right Foot Min 3 Views Right, 3 views Hx of Present Illness: right toe discoloration began last night, draining serous sanguineous fluid from small area on pad of great toe. Entire right foot red swollen.; Reason: Pain; Clinical Question(s): Aseptic Necrosis COMPARISON: Right foot radiograph 01/03/2013 FINDINGS: No fractures or bone lesions. Mild degenerative changes of the tarsometatarsal joints and at the dorsal midfoot. Moderate plantarcalcaneal enthesophyte. Moderate soft tissue swelling of the dorsal forefoot. Heavy vascular calcification. IMPRESSION: No acute fracture or dislocation. Moderate soft tissue tissue swelling dorsal forefoot. I have personally reviewed the images and I agree with this report. WSN: [id number] Ordering Physician: Idania Alejandre Dictated By: Jean Paul Lynne DO Dictated Date/Time: 02/28/22 9:25 am Reviewed By: Brayan Best MD Signed By: Brayan Best MD Signed Date/Time: 02/28/22 9:30 am Transcribed By: TY Transcribed Date/Time: 02/28/22 8:41 am Vital Signs Most recent to oldest [Reference Range]: 1 2 3 Height 173 cm (03/01/22 7:44 AM) 173 cm (02/28/22 11:59 PM) 173 cm (02/28/22 8:53 PM) Weight 105 kg (02/28/22 5:05 PM) 105 kg (02/28/22 12:11 PM) 105 kg (02/27/22 5:31 PM) Oxygen Saturation [94-100 %] 100 % (03/01/22 7:44 AM) 96 % (02/28/22 11:59 PM) 97 % (02/28/22 8:53 PM) Pulse Rate [55-90 bpm] 86 bpm (03/01/22 7:44 AM) 92 bpm *H* (02/28/22 11:59 PM) 95 bpm *H* (02/28/22 8:53 PM) Body Mass Index [18.5-24.99] 35.08 *>HHI* (02/28/22 5:05 PM) 35.08 *>HHI* (02/28/22 12:11 PM) Blood Pressure [90-138/55-84 mm Hg] 145/78mm Hg *H* (03/01/22 9:54 AM) 145/78mm Hg *H* (03/01/22 9:54 AM) 145/78mm Hg *H* (03/01/22 7:44 AM) Respiratory Rate [16-30 br/min] 18 br/min (03/01/22 3:15 PM) 18 br/min (03/01/22 3:15 PM) 18 br/min (03/01/22 2:33 PM) Temperature [96.8-100.4 DegF] 97.9 DegF (03/01/22 7:44 AM) 98.0 DegF (02/28/22 11:59 PM) 98.2 DegF (02/28/22 8:53 PM) Liters per Minute 0 L/min (02/27/22 5:17 PM) Mode of Delivery (Oxygen) Room air (03/01/22 7:44 AM) Room air (02/28/22 11:59 PM) Room air (02/28/22 8:53 PM) Blood pressure sites Arm, right (03/01/22 7:44 AM) Arm, left (02/28/22 11:59 PM) Arm, left (02/28/22 8:53 PM) Temperature Route Oral (03/01/22 7:44 AM) Oral (02/28/22 11:59 PM) Oral (02/28/22 8:53 PM) Dry Weight 105 kg (02/28/22 5:05 PM) 105 kg (02/28/22 12:11 PM) 105 kg (02/27/22 5:31 PM) Weight Obtained Via Patient/family state d (02/27/22 5:31 PM) Dry Weight Obtained Via Patient/family s tated (02/27/22 5:31 PM) Social History Social History Type Response Smoking Status Never (less than 100 in lifetime) entered on: 09/03/19 Sex Female 1per pt
--- OUTSIDE RECORDS SUMMARY | 2023-02-20 15:13 | XMS_ITS | Continuity of Care Document ---
Author Name Unknown Organization [facility] Address [address] [place] [address]- Care Team Providers Care Emr Trainer Name Role Phone Allegra Aguayo MD Primary Care Physician Encounter [facility] Date(s): 10/16/22 - 11/15/22 [facility] [address] [place] [address]- Allergies, Adverse Reactions, Alerts Substance Reaction Severity Status ibuprofen ABD PAIN Active morphine Vomiting and itchy Active traMADol Itchy, Hives Active Immunizations Given and Recorded Vaccine Date Status Refusal Reason SARS-CoV-2 mRNA ([id number]) vax 02/22/22 Recorded SARS-CoV-2 (COVID-19) mRNA BNT-162b2 [...] Note: VIS GIVEN-DATED 05/30/11 2Result Comment: LOT [id number] EXP 04 MAY 2010 3Admin Note: VIS [...] 04/24/22 9:05:00 EDT, Route to Pharmacy Electronically, [facility], Partial fill upon patient request if the prescription is for a schedule II opio... Start Date: 04/24/22 Status: Ordered ammonium lactate 5% topical lotion 1 application, Topically, 2 times a day, # 240 Gm, 0 Refills, Maintenance, 05/01/22 12:34:00 EDT, Lotion, [facility]/pharmacy #[id number], Partial fill upon patient request if the prescription is for a schedule II opioid drug., 1 application Topically 2 times a da... Start Date: 05/01/22 Stop Date: 05/31/22 Status: Ordered aspirin 81 mg oral delayed release tablet 81 mg, By Mouth, Daily, # 30 tablet, Refills 0, Tot. Refills 0, Maintenance, 11/09/22 16:40:00 EST,Route to Pharmacy Electronically, [facility]/pharmacy #[id number], Partial fill upon patient request if the prescription is for a schedule II opioid drug., 169, cm,... Start Date: 11/09/22 Stop Date: 12/09/22 Status: Ordered atorvastatin 40 mg oral tablet 1 tablet = 40 mg, By Mouth, Daily, # 90 tablet, 2 Refills, Maintenance, 04/24/22 9:41:00 EDT, Tablet, [facility], Partial fill upon patient request if the [...] 07/26/22 16:13:00 EDT, Route to Pharmacy Electronically, [facility]/pharmacy #[id number], Partial fill upon patient request [...] 03/16/22 14:30:00 EDT, Route to Pharmacy Electronically, [facility], Partial fill upon patient request if the [...] 0 Refills, Maintenance, 09/21/22 11:57:00 EST, Tablet, [facility]/pharmacy #[id number], Partial fill upon patient request [...] 10/16/22 10:25:00 EST, Route to Pharmacy Electronically, [facility] #[id number], Partial fill upon patientrequest if the prescription [...] Refills, Soft Stop, 10/16/22 8:19:00 EST, Solution, [facility]/pharmacy #[id number], Partial fill upon patient request [...] 09/20/22 11:19:00 EST, Route to Pharmacy Electronically, [facility]/pharmacy #[id number], Partial fillupon patient request if the prescription is for a s... Start Date: 09/20/22 Status: Ordered levoFLOXacin 250 mg oral tablet 1 tablet = 250 mg, By Mouth, Every 24 hours, # 14 tablet, 0 Refills, Maintenance, 09/20/22 11:28:00EST, Tablet, [facility]/pharmacy #[id number], Partial fill upon patient request if the prescription is for a schedule II opioid drug., 169, cm, 09/20/22 9:22:00 EST... Start Date: 09/20/22 Stop Date: 10/04/22 Status: Ordered lisinopril 10 mg oral tablet 10 mg, 1, tablet, By Mouth, Daily, # 90 tablet, Refills 1, Tot. Refills 1, Maintenance, 10/16/22 10:24:00 EST, [id number], Partial fill upon patientrequest if the prescription is for a schedule II op... Start Date: 10/16/22 Stop Date: 04/14/23 Status: Ordered NovoLOG FlexPen 100 units/mL injectable solution = 20 units, Subcutaneous Injection, 3 times a day before meals, INJECT 20 UNITS INTO SKIN THREE TIMES DAILY BEFORE A MEAL, # 15 mL, 10 Refills, Maintenance, 08/01/22 16:09:00 EDT, [facility], 169, cm, 08/01/22 14:14:00 EDT, Height, 104... [...] 04/24/22 9:03:00 EDT, Route to Pharmacy Electronically, [facility], Partial fill upon patient request if the [...] 2 Refills, Maintenance, 10/16/22 13:14:00 EST, Solution, [facility]/pharmacy #[id number], Partial fill upon patient request if the prescription is for a schedule II opioid drug., 169, cm, 10/09/22 8:39... Start Date: 10/16/22 Status: Ordered Ventolin HFA 108 mcg/inh inhalation aerosol with adapter 1 puffs, Inhalation, Every 4 hours, PRN NEEDED FOR WHEEZING, # 18 Gm, 0 Refills, Maintenance, 11/02/22 8:15:00 EST, [facility] #[id number], 169, cm, 11/01/22 11:21:00 EST, Height, 103.42, [...] Active Morbid obesity Confirmed Active BHN/CCA/CP- Angle [phone] correction active care coordination Confirmed Active Peripheral vascular disease - right SFA angioplasty/right great toe amputation 2021 Confirmed Active Severe obesity (BMI 35.0-39.9) with comorbidity Confirmed Active Umbilical hernia Confirmed Active 1per 2016 and 2019 [facility] notes Social History Social History Type Response Smoking Status Never (less than 100 in lifetime) entered on: 09/03/19 Sex 1per pt Patient Care team information Care Team Personnel Name: Allegra Aguayo MD Position: [facility] Resident Member Role: PCP Address: Address: [address] [place] [id number] Name: Vera Locke RN Position: S [...] Persons Name: MIKEY SEAY Address: home [address] [address] Name: MIKEY AYALA Address: home [address] [place] [address] Name: TANIA COPPOLA Address: home [address] [place] [address] Name: TANIA MUÑIZ Address: home [address] [place] [address]
--- OUTSIDE RECORDS SUMMARY | 2023-02-20 15:13 | XMS_ITS | Continuity of Care Document ---
Author Name Unknown Organization [facility] Address [address] [place] [address]- Care Team Providers Care Shingle Grader Name Role Phone Sangeetha MOSHER, Marcia Koroma Primary Care Physician [phone] Encounter [facility] Date(s): 03/21/21 - 04/20/21 [facility] [address] [place], [place] [address] Allergies, Adverse Reactions, Alerts [...] Note: VIS GIVEN-DATED 05/30/11 2Result Comment: LOT [id number] EXP 04 MAY 2010 3Admin Note: VIS given Medications albuterol 90 mcg/inh inhalation powder 2 puffs, Inhalation, Every 6 hours, PRN as needed, # 1 each, 11 Refills, Maintenance, 12/08/20 11:02:00 EST, Powder, [facility] #[id number], 2 puffs Inhalation Every 6 hours,PRN:as needed, [...] 07/30/20 18:34:00 EDT, Route to Pharmacy Electronically, [facility] #[id number], 170, cm, 05/20/20 14:48:00 EDT, Height, 100.5, kg, 05/30/19 9:39:00 EDT, Dry... Start Date: 07/30/20 Stop Date: 07/25/21 Status: Ordered aspirin 81 mg oral delayed release tablet 81 mg, 1, tablet, By Mouth, Daily, # 30 tablet, Refills 11, Tot. Refills 11, Maintenance, 05/20/20 14:45:00 EDT, Route to Pharmacy Electronically, [facility] #[id number], 170, cm, 05/20/20 14:08:00 EDT, Height, 100.5, kg, 05/30/19 9:39:00 EDT, Start Date: 05/20/20 Status: Ordered atorvastatin 10 mg oral tablet 1 tablet = 10 mg, By Mouth, Daily, # 30 tablet, 11 Refills, Maintenance, 05/20/20 14:46:00 EDT, [facility] #[id number], 170, cm, 05/20/20 14:08:00 EDT, Height, 100.5, [...] tablet, 0 Refills, Maintenance, 03/28/21 10:39:00 EDT, [facility] #[id number], 170, cm, 12/21/20 9:18:00 EST, Height, 100.5, kg, 05/30/19 9:39:00 EDT, Dry Weight Start Date: 03/28/21 Status: Ordered Lantus Solostar Pen 100 units/mL subcutaneous solution See Instructions, Inject 40 units under the skin twice daily., # 24 mL, 3 Refills, Maintenance, 01/29/21 9:00:00 EDT, [facility] #[id number], 170, cm, 12/21/20 9:18:00 EST, Height, 100.5, kg, 05/30/19 9:39:00 EDT, Dry Weight Start Date: 01/29/21 Status: Ordered lisinopril 40 mg oral tablet 1 tablet = 40 mg, By Mouth, Daily, # 90 tablet, 4 Refills, Maintenance, 02/03/20 12:39:00 EDT, Tablet, [facility] #[id number], 170, cm, 12/16/19 10:11:00 EST, Height, 100.5, kg, 05/30/19 9:39:00EDT, Dry Weight Start Date: 02/03/20 Stop Date: 04/28/21 Status: Ordered Melatonin 5 mg oral tablet 0 Refills, Maintenance, 01/29/19 10:09:09 EDT Start Date: 01/29/19 Status: Ordered NovoLOG FlexPen 100 units/mL injectable solution See Instructions, INJECT 20 UNITS SUBCUTANEOULSY THREE TIMES DAILY BEFORE MEALS., # 48 mL, 0 Refills, 03/30/21 11:25:00 EDT, [facility] #[id number], 170, cm, 12/21/20 9:18:00 EST, Height, 100.5,kg, 05/30/19 9:39:00 EDT, Dry Weight Start Date: 03/30/21 Status: Ordered OXcarbazepine 300 mg oral tablet TK 1 T PO BID Start Date: 01/29/19 Status: Ordered PARoxetine 40 mg oral tablet TK 1 T PO HS Start Date: 01/29/19 Status: Ordered Pen Almont, 31 G x 5 mm BD Ultra Fine III See Instructions, # 150 each, Refills 11, Tot. Refills 11, Maintenance, use to inject insulin up tofive times daily dx e11.9, 10/21/20 15:55:00 EST, Supply, 170, cm, 05/20/20 14:48:00 EDT, Height, 100.5, kg, 05/30/19 9:39:00 EDT, Dry Weight Start Date: 10/21/20 Status: Ordered Pen Almont, 31 G x 5 mm BD Ultra [...] 5 Refills, Maintenance, 02/01/21 14:49:00 EDT, Solution, [facility] #[id number], to replace 0.75 mg dose, 170, cm, [...] Microalbuminuria(Confirmed) Active Morbid obesity(Confirmed) Active BHN/CCA/AUDRA-Mignon Peters [phone]/Health assisted active care coordination(Confirmed) Active Peripheral vascular disease(Confirmed) Active Umbilical hernia(Confirmed) Active 1per 2016 and 2018 [facility] notes Social History Social History Type Response Smoking Status Never (less than 100 in lifetime) entered on: 09/03/19 Sex Female 1per pt
--- OUTSIDE RECORDS SUMMARY | 2023-02-20 15:13 | XMS_ITS | Continuity of Care Document ---
Author Name Unknown Organization [facility] Address [address] [place] [address]- Care Team Providers Care Newspaper Photojournalist Name Role Phone Olivier MOSHER, Allegra Primary Care Physician Encounter [facility] Date(s): 08/01/22 - 08/31/22 [facility] [address] [place], [place] [address] Allergies, Adverse Reactions, Alerts Substance Reaction Severity Status ibuprofen ABD PAIN Active morphine Vomiting and itchy Active traMADol Itchy, Hives Active Immunizations Given and Recorded Vaccine Date Status Refusal Reason SARS-CoV-2 mRNA ([id number]) vax 02/22/22 Recorded SARS-CoV-2 (COVID-19) mRNA BNT-162b2 [...] Note: VIS GIVEN-DATED 05/30/11 2Result Comment: LOT [id number] EXP 04 MAY 2010 3Admin Note: VIS [...] 04/24/22 9:05:00 EDT, Route to Pharmacy Electronically, [facility], Partial fill upon patient request if the prescription is for a schedule II opio... Start Date: 04/24/22 Status: Ordered ammonium lactate 5% topical lotion 1 application, Topically, 2 times a day, # 240 Gm, 0 Refills, Maintenance, 05/01/22 12:34:00 EDT, Lotion, [facility]/pharmacy #[id number], Partial fill upon patient request if the prescription is for a schedule II opioid drug., 1 application Topically 2 times a da... Start Date: 05/01/22 Stop Date: 05/31/22 Status: Ordered aspirin 81 mg oral delayed release tablet 81 mg, By Mouth, Daily, # 30 tablet, Refills 5, Tot. Refills 5, Maintenance, 05/13/22 16:40:00 EDT,Route to Pharmacy Electronically, [facility], Partial fill upon patient request if the prescription is for a schedule II opioid drug.,... Start Date: 05/13/22 Stop Date: 11/09/22 Status: Ordered atorvastatin 40 mg oral tablet 1 tablet = 40 mg, By Mouth, Daily, # 90 tablet, 2 Refills, Maintenance, 04/24/22 9:41:00 EDT, Tablet, [facility] Partial fill upon patient request if the [...] 16:13:00 EDT, [id number] Partial fill upon patient request if the prescription is for a schedule II opi... Start Date: 07/26/22 Stop Date: 01/22/23 Status: Ordered Colace sodium 100 mg oral capsule 100 mg, 1, capsule, By Mouth, 2 times a day, PRN, # 60 capsule, Refills 0, Tot. Refills 0, Maintenance, for constipation, 03/16/22 14:30:00 EDT, Route to Pharmacy Electronically, [facility], Partial fill upon patient request if [...] 07/07/22 15:52:00 EDT, Route to Pharmacy Electronically, [facility], Partial fill upon patient request if [...] 6 Refills, Soft Stop, 08/01/22 16:09:00EDT, Solution, [facility], Partial fill upon patient request if the prescription isfor a schedule II opioid drug., 169, cm, 08/01/22 1... Start Date: 08/01/22 Stop Date: 04/22/24 Status: Ordered lisinopril 10 mg oral tablet 10 mg, 1, tablet, By Mouth, Daily, # 90 tablet, Refills 4, Tot. Refills 4, Maintenance, 07/12/22 10:12:00 EDT, Route to Pharmacy Electronically, [facility] #[id number], Partial fill upon patientrequest if the prescription is for a schedule II op... Start Date: 07/12/22 Stop Date: 10/05/23 Status: Ordered NovoLOG FlexPen 100 units/mL injectable solution = 20 units, Subcutaneous Injection, 3 times a day before meals, INJECT 20 UNITS INTO SKIN THREE TIMES DAILY BEFORE A MEAL, # 15 mL, 10 Refills, Maintenance, 08/01/22 16:09:00 EDT, [facility] 169, cm, 08/01/22 14:14:00 EDT, [...] Acute 09/11/22 16:30:00 EST, 08/28/22 16:30:00 EDT, [facility]/pharmacy #[id number], Partial fill [...] 04/24/22 9:03:00 EDT, Route to Pharmacy Electronically, [facility], Partial fill upon patient request if the prescription is for a schedule II opio... Start Date: 04/24/22 Status: Ordered ProAir HFA 90 mcg/inh inhalation aerosol 1 puffs, Inhalation, Every 4 hours, PRN as needed for wheezing, # 18 Gm, 0 Refills, Maintenance, 04/18/22 9:51:00 EDT, Aerosol, [facility], Partial fill upon patient request if [...] 0 Refills, Maintenance, 03/09/22 14:21:00 EDT, Gel, [facility], Partial fill upon patient request if the p... Start Date: 03/09/22 Status: Ordered traZODone 300 mg oral tablet 1 tablet = 300 mg, By Mouth, Daily at bedtime Start Date: 03/03/22 Status: Ordered Trulicity Pen 4.5 mg/0.5 mL subcutaneous solution = 0.5 mL, Subcutaneous Injection, Every week, rotate injection sites, # 6 mL, 4 Refills, Maintenance, 07/19/22 10:42:00 EDT, Solution, [facility] #[id number], Partial fill upon patient request if the prescription is for a schedule II opioid drug.... Start Date: 07/19/22 Status: Ordered Tylenol 8 Hour 650 mg oral tablet, extended release 2 tablet = 1,300 mg, By Mouth, Every 8 hours, PRN as needed for pain, # 24 tablet, 0 Refills, Maintenance, 04/24/22 9:43:00 EDT, ER Tablet, [facility], Partial fill upon patient request if the prescription is for a schedule II opioid d... Start Date: 04/24/22 Status: Ordered Ventolin HFA 108 mcg/inh inhalation aerosol with adapter 2 puffs, Inhalation, Every 6 hours, PRN Wheezing/Shortness of Breath, # 8 Gm, 1 Refills, Maintenance, 05/30/22 10:56:00 EDT, [facility], Partial fill upon patient request if [...] Obese class II Confirmed Active BHN/CCA/CP- Angle [phone] assisted active care coordination Confirmed Active Peripheral vascular disease Confirmed Active Umbilical hernia Confirmed Active 1per 2016 and 2018 [facility] notes Social History Social History Type Response Smoking Status Never (less than 100 in lifetime) entered on: 09/03/19 Sex 1per pt Patient Care team information Personnel Name: Allegra Aguayo MD Address: Address: [address] [place] [address]
--- OUTSIDE RECORDS SUMMARY | 2023-02-20 15:13 | XMS_ITS | Continuity of Care Document ---
Author Name Unknown Organization [facility] Address [address] [place] [address]- Care Team Providers Care Intertype Operator Name Role Phone Olivier MOSHER, Allegra Primary Care Physician [phone] Encounter [facility] Date(s): 04/10/22 - 05/25/22 [facility] [address] [place], [place] [address] Attending Physician: Not on Staff, Attending MD Allergies, Adverse Reactions, Alerts Substance Reaction Severity Status ibuprofen ABD PAIN Active morphine Vomiting and itchy Active traMADol Itchy, Hives Active Immunizations Given and Recorded Vaccine Date Status Refusal Reason SARS-CoV-2 mRNA (nhwqmbt-[id number]) vax 02/22/22 Recorded SARS-CoV-2 (COVID-19) mRNA BNT-162b2 [...] Note: VIS GIVEN-DATED 05/30/11 2Result Comment: LOT [id number] EXP 04 MAY 2010 3Admin Note: VIS [...] 04/24/22 9:05:00 EDT, Route to Pharmacy Electronically, [facility], Partial fill upon patient request if [...] Maintenance, 05/13/22 16:40:00 EDT,Route to Pharmacy Electronically, [facility], Partial fill upon patient request if the prescription is for a schedule II opioid drug.,... Start Date: 05/13/22 Stop Date: 11/09/22 Status: Ordered atorvastatin 40 mg oral tablet 1 tablet = 40 mg, By Mouth, Daily, # 90 tablet, 2 Refills, Maintenance, 04/24/22 9:41:00 EDT, Tablet, [facility], Partial fill upon patient request if [...] 05/13/22 16:40:00 EDT, Route to Pharmacy Electronically, [facility], Partial fill upon patient request if the prescription is for a schedul... Start Date: 05/13/22 Stop Date: 11/09/22 Status: Ordered Colace sodium 100 mg oral capsule 100 mg, 1, capsule, By Mouth, 2 times a day, PRN, # 60 capsule, Refills 0, Tot. Refills 0, Maintenance, for constipation, 03/16/22 14:30:00 EDT, Route to Pharmacy Electronically, [facility], Partial fill upon patient request if [...] 04/24/22 9:02:00 EDT, Route to Pharmacy Electronically, [facility], Partial fill upon patient request if the prescription is for a schedule II opio... Start Date: 04/24/22 Status: Ordered insulin aspart 100 units/mL subcutaneous solution = 20 units, Subcutaneous Injection, 3 times a day before meals, # 10 mL, 11 Refills, Maintenance, 03/10/22 9:06:00 EDT, Solution, [id number], Partial fill upon patient request if theprescription [...] tablet, 1 Refills, Maintenance, 05/15/22 16:38:00 EDT, [facility]/pharmacy#[id number], resent - not recvd, 169, cm, 05/01/22 10:56:00 EDT, Height, 104.9, kg, 03/04/22 2:58:00 EDT,Dry Weight Start Date: 05/15/22 Status: Ordered Lantus 100 u/ml subcutaneous solution = 30 units, Subcutaneous Injection, 2 times a day, # 10 mL, 5 Refills, Maintenance, 03/10/22 9:05:00 EDT, Solution, [facility] #[id number], Partial fill upon patient request if the prescription is for a schedule II opioid drug., 169, cm, 03/09/22... Start Date: 03/10/22 Status: Ordered lisinopril 10 mg oral tablet 10 mg, 1, tablet, By Mouth, Daily, # 30 tablet, Refills 4, Tot. Refills 4, Maintenance, 04/24/22 9:41:00 EDT, Route to Pharmacy Electronically, [facility], Partial fill upon patient request if [...] 05/24/22 10:39:00 EDT, Route to Pharmacy Electronically, [facility]/pharmacy #[id number], Partial fill upon patient... Start Date: [...] 04/24/22 9:03:00 EDT, Route to Pharmacy Electronically, [facility], Partial fill upon patient request if [...] 0 Refills, Maintenance, 04/18/22 9:51:00 EDT, Aerosol, [facility], Partial fill upon patient request if [...] 0 Refills, Maintenance, 03/09/22 14:21:00 EDT, Gel, [facility]., Partial fill upon patient request if the p... Start Date: 03/09/22 Status: Ordered traZODone 300 mg oral tablet 1 tablet = 300 mg, By Mouth, Daily at bedtime Start Date: 03/03/22 Status: Ordered Trulicity Pen 3 mg/0.5 mL subcutaneous solution See Instructions, ADMINISTER 0.5 ML UNDER THE SKIN EVERY WEEK. ROTATE INJECTION SITES, # 2 mL, 11 Refills, 03/09/22 14:22:00 EDT, [facility]., 169, cm, 03/09/22 13:46:00 EDT, Height, 104.9, kg, 03/04/22 2:58:00 EDT, Dry Weight Start Date: 03/09/22 Status: Ordered Tylenol 8 Hour 650 mg oral tablet, extended release 2 tablet = 1,300 mg, By Mouth, Every 8 hours, PRN as needed for pain, # 24 tablet, 0 Refills, Maintenance, 04/24/22 9:43:00 EDT, ER Tablet, [facility], Partial fill upon patient request if [...] Obese class I(Confirmed) Active BHN/CCA/Luis Felipe Peters [phone]/Health custodial active care coordination(Confirmed) Active Peripheral vascular disease(Confirmed) Active Uncontrolled type 1 diabetes mellitus with hyperglycemia, with long-term current use of insulin(Confirmed) Active Umbilical hernia(Confirmed) Active 1per 2017 and 2019 [facility] notes Social History Social History Type Response Smoking Status Never (less than 100 in lifetime) entered on: 09/03/19 Sex 1per pt
--- OUTSIDE RECORDS SUMMARY | 2023-02-20 15:13 | XMS_ITS | Continuity of Care Document ---
Author Name Unknown Organization [facility] Address [address] [place] [address]- Care Team Providers Care Chief Client Officer Name Role Phone Josef MOSHER, Mamie Patterson Primary Care Physician Encounter [facility] Date(s): 01/03/22 - 02/04/22 [facility] [address] [place], [place] [address] Attending Physician: Not on Staff, Attending MD [...] Note: VIS GIVEN-DATED 05/30/11 2Result Comment: LOT [id number] EXP 04 MAY 2010 3Admin Note: VIS [...] 12/29/21 10:02:00 EST, Route to Pharmacy Electronically, [facility] #[id number], 170, cm, 07/28/21 10:50:00 EDT, Height Start Date: 12/29/21 Stop Date: 03/24/23 Status: Ordered atorvastatin 10 mg oral tablet 1 tablet, By Mouth, Daily, # 90 tablet, 1 Refills, Maintenance, 12/13/21 19:21:00 EST, [facility] #[id number], 170, cm, 07/28/21 10:50:00 EDT, Height Start [...] 12/29/21 10:02:00 EST, Route to Pharmacy Electronically, [facility] #[id number], Partial fill upon patientrequest if the prescription is for a schedule II op... Start Date: 12/29/21 Stop Date: 03/29/22 Status: Ordered Insulin Syringe, BD Ultra-Fine 0.5 cc 31 G x 8 mm (516in) See Instructions, # 100 each, Refills 2, [...] tablet, 11 Refills, Maintenance, 12/29/21 10:02:00 EST, [facility] #[id number], resent - not recvd, 170, cm, 07/28/21 10:50:00 EDT, Height Start Date: 12/29/21 Status: Ordered Lantus 100 u/ml subcutaneous solution = 45 units, Subcutaneous Infusion, 2 times a day, changed from PEN, pt requesting vials, # 12 mL, 11 Refills, Maintenance, 01/11/22 9:45:00 EST, [facility] #[id number], Partial fill upon patientrequest if the prescription is for a schedule II op... Start Date: 01/11/22 Status: Ordered lidocaine 5% topical ointment 1 application, Topically, 3 times a day, wash hands thoroughly after application, prn pain, # 50 Gm, 0 Refills, Maintenance, 01/11/22 9:49:00 EST, Ointment, [facility] #[id number], Partial fill upon patient request if the prescription is for a sc... Start Date: 01/11/22 Status: Ordered lisinopril 40 mg oral tablet 1 tablet = 40 mg, By Mouth, Daily, # 90 tablet, 4 Refills, Maintenance, 07/20/21 9:25:00 EDT, Tablet, [facility] #[id number], 170, cm, 07/20/21 8:57:00 EDT, Height Start Date: 07/20/21 Stop Date: 10/13/22 Status: Ordered NovoLOG 100 units/mL injectable solution See Instructions, ADMINISTER 20 UNITS UNDER THE SKIN THREE TIMES DAILY BEFORE MEALS 90 DAY SUPPLY REQUESTED, # 30 mL, 2 Refills, [facility] #[id number], 170, cm, 07/28/21 10:50:00 EDT, Height Start [...] INJECTION SITES, # 2 mL, 0 Refills, [facility] #[id number], 170, cm, 07/28/21 10:50:00 EDT, Height Start Date: 01/10/22 Status: Ordered Ventolin HFA 108 mcg/inh inhalation aerosol with adapter 1 puffs, Inhalation, 4 times a day, PRN NEEDED FOR WHEEZING, # 18 Gm, 0 Refills, [facility] #[id number], 170, cm, 01/11/22 9:39:00 EST, Height Start [...] Obese class I(Confirmed) Active BHN/CCA/Luis Felipe Peters [phone]/Health senior living active care coordination(Confirmed) Active Peripheral vascular disease(Confirmed) Active Umbilical hernia(Confirmed) Active 1per 2016 and 2018 [facility] notes Social History Social History Type Response Smoking Status Never (less than 100 in lifetime) entered on: 09/03/19 Sex Female 1per pt
--- OUTSIDE RECORDS SUMMARY | 2023-02-20 15:13 | XMS_ITS | Continuity of Care Document ---
Author Name Unknown Organization [facility] Address [address] [place] [address]- Care Team Providers Care Quality Control Assessor Name Role Phone Josef MOSHER, Mamie Patterson Primary Care Physician [place] [facility] [place] 07/23/21 [facility] [address], [place] [address] Attending Physician: Luis F Rowland MD Admitting Physician: Luis F Rowland MD Allergies, Adverse Reactions, Alerts Substance Reaction Severity Status ibuprofen ABD PAIN Active traMADol Itchy, Hives Active morphine Vomiting and itchy Active Immunizations Given and Recorded Vaccine Date [...] Note: VIS GIVEN-DATED 05/30/11 2Result Comment: LOT [id number] EXP 04 MAY 2010 3Admin Note: VIS [...] 11 Refills, Maintenance, 07/18/21 15:05:00 EDT, [facility] Patient Lost her inhailer, Will need [...] 07/20/21 9:24:00 EDT, Route to Pharmacy Electronically, [facility] #[id number], 170, cm, 07/20/21 8:57:00 EDT, Height Start Date: 07/20/21 Stop Date: 10/13/22 Status: Ordered atorvastatin 10 mg oral tablet 1 tablet = 10 mg, By Mouth, Daily, # 90 tablet, 1 Refills, Maintenance, 05/05/21 10:09:00 EDT, [facility] #[id number], 170, cm, 12/21/20 9:18:00 EST, Height, 100.5, kg, 05/30/19 9:39:00 EDT, DryWeight Start Date: 05/05/21 Status: Ordered hydrochlorothiazide 25 mg oral tablet 25 mg, 1, tablet, By Mouth, Daily, # 90 tablet, Refills 0, Tot. Refills 0, Maintenance, 07/20/21 9:33:00 EDT, Route to Pharmacy Electronically, [facility] #[id number], Partial fill upon patient request if the prescription is for a schedule II opi... Start Date: 07/20/21 Stop Date: 10/18/21 Status: Ordered insulin glargine 100 units/mL subcutaneous solution See Instructions, Subcutaneous Infusion Daily 40 units sc twice daily dx E11.9, # 12 mL, 2 Refills,Maintenance, 07/18/21 16:08:00 EDT, [facility], Partial fill upon patient request if [...] tablet, 11 Refills, Maintenance, 06/21/21 14:39:00 EDT, [facility] #[id number], 170, cm, 05/20/21 15:42:00 EDT, Height Start Date: 06/21/21 Status: Ordered lisinopril 40 mg oral tablet 1 tablet = 40 mg, By Mouth, Daily, # 90 tablet, 4 Refills, Maintenance, 07/20/21 9:25:00 EDT, Tablet, [facility] #[id number], 170, cm, 07/20/21 8:57:00 EDT, Height Start Date: 07/20/21 Stop Date: 10/13/22 Status: Ordered Melatonin 5 mg oral tablet 0 Refills, Maintenance, 01/29/19 10:09:09 EDT Start Date: 01/29/19 Status: Ordered NovoLOG FlexPen 100 units/mL injectable solution See Instructions, INJECT 20 UNITS INTO SKIN THREE TIMES DAILY BEFORE A MEAL, # 48 mL, 11 Refills, Maintenance, [id number], 170, cm, 05/20/21 15:42:00 EDT, Height Start Date: 06/22/21 Status: Ordered OXcarbazepine 300 mg oral tablet TK 1 T PO BID Start Date: 01/29/19 Status: Ordered PARoxetine 40 mg oral tablet TK 1 T PO HS Start Date: 01/29/19 Status: Ordered Pen Tower, 31 G x 5 mm BD Ultra Fine III See Instructions, # 150 each, Refills 11, Tot. Refills 11, Maintenance, use to inject insulin up tofive times daily dx e11.9, 10/21/20 15:55:00 EST, Supply, 170, cm, 05/20/20 14:48:00 EDT, Height, 100.5, kg, 05/30/19 9:39:00 EDT, Dry Weight Start Date: 10/21/20 Status: Ordered Pen Tower, 31 G x 5 mm BD Ultra [...] 11 Refills, Maintenance, 07/18/21 15:06:00 EDT, Aerosol, [facility], Partial fill upon patient request if theprescription [...] 2 mL, 5 Refills, 07/08/21 9:33:00 EDT, [facility] #[id number], 170, cm, 05/20/21 15:42:00 EDT, Height Start [...] Microalbuminuria(Confirmed) Active Morbid obesity(Confirmed) Active [facility]N/CCA/AUDRA-Mignon Peters [phone]/[facility] active care coordination(Confirmed) Active Peripheral vascular disease(Confirmed) Active Umbilical hernia(Confirmed) Active 1per 2017 and 2018 [facility] notes Social History Social History Type Response Smoking Status Never (less than 100 in lifetime) entered on: 09/03/19 Sex Female 1per pt
--- OUTSIDE RECORDS SUMMARY | 2023-02-20 15:13 | XMS_ITS | Continuity of Care Document ---
Author Name Unknown Organization [facility] Address [address] [place] [address]- Care Team Providers Care Actuarial Trainee Name Role Phone Josef MOSHER, Mamie Patterson Primary Care Physician [phone] Encounter [facility] [place] Date(s): 05/20/21 - 06/19/21 [facility] [address] [place], [place] [address] Allergies, Adverse Reactions, Alerts Substance [...] Note: VIS GIVEN-DATED 05/30/11 2Result Comment: LOT [id number] EXP 04 MAY 2010 3Admin Note: VIS given Medications albuterol 90 mcg/inh inhalation powder 2 puffs, Inhalation, Every 6 hours, PRN as needed, # 1 each, 11 Refills, Maintenance, 05/23/21 19:37:00 EDT, Powder, [facility] #[id number], Patient Lost her inhailer, Will need a [...] 07/30/20 18:34:00 EDT, Route to Pharmacy Electronically, [facility] #[id number], 170, cm, 05/20/20 14:48:00 EDT, Height, 100.5, kg, 05/30/19 9:39:00 EDT, Dry... Start Date: 07/30/20 Stop Date: 07/25/21 Status: Ordered aspirin 81 mg oral delayed release tablet 81 mg, 1, tablet, By Mouth, Daily, # 30 tablet, Refills 11, Tot. Refills 11, Maintenance, 05/20/20 14:45:00 EDT, Route to Pharmacy Electronically, [facility] #[id number], 170, cm, 05/20/20 14:08:00 EDT, Height, 100.5, kg, 05/30/19 9:39:00 EDT, [facility] Start Date: 05/20/20 Status: Ordered atorvastatin 10 mg oral tablet 1 tablet = 10 mg, By Mouth, Daily, # 90 tablet, 1 Refills, Maintenance, 05/05/21 10:09:00 EDT, [facility] #[id number], 170, cm, 12/21/20 9:18:00 EST, Height, 100.5, [...] tablet, 0 Refills, Maintenance, 03/28/21 10:39:00 EDT, [facility] #[id number], 170, cm, 12/21/20 9:18:00 EST, Height, 100.5, kg, 05/30/19 9:39:00 EDT, Dry Weight Start Date: 03/28/21 Status: Ordered Lantus Solostar Pen 100 units/mL subcutaneous solution See Instructions, Inject 40 units under the skin twice daily., # 24 mL, 2 Refills, Maintenance, 05/10/21 14:21:00 EDT, [facility] #[id number], 170, cm, 12/21/20 9:18:00 EST, Height, 100.5, kg, 05/30/19 9:39:00 EDT, Dry Weight Start Date: 05/10/21 Status: Ordered lisinopril 40 mg oral tablet 1 tablet = 40 mg, By Mouth, Daily, # 90 tablet, 4 Refills, Maintenance, 02/03/20 12:39:00 EDT, Tablet, [facility] #[id number], 170, cm, 12/16/19 10:11:00 EST, Height, 100.5, kg, 05/30/19 9:39:00EDT, Dry Weight Start Date: 02/03/20 Stop Date: 04/28/21 Status: Ordered Melatonin 5 mg oral tablet 0 Refills, Maintenance, 01/29/19 10:09:09 EDT Start Date: 01/29/19 Status: Ordered NovoLOG FlexPen 100 units/mL injectable solution See Instructions, INJECT 20 UNITS SUBCUTANEOULSY THREE TIMES DAILY BEFORE MEALS., # 48 mL, 0 Refills, 03/30/21 11:25:00 EDT, [facility] #[id number], 170, cm, 12/21/20 9:18:00 EST, Height, 100.5,kg, 05/30/19 9:39:00 EDT, Dry Weight Start Date: 03/30/21 Status: Ordered OXcarbazepine 300 mg oral tablet TK 1 T PO BID Start Date: 01/29/19 Status: Ordered PARoxetine 40 mg oral tablet TK 1 T PO HS Start Date: 01/29/19 Status: Ordered Pen Lavalette, 31 G x 5 mm BD Ultra Fine III See Instructions, # 150 each, Refills 11, Tot. Refills 11, Maintenance, use to inject insulin up tofive times daily dx e11.9, 10/21/20 15:55:00 EST, Supply, 170, cm, 05/20/20 14:48:00 EDT, Height, 100.5, kg, 05/30/19 9:39:00 EDT, Dry Weight Start Date: 10/21/20 Status: Ordered Pen Lavalette, 31 G x 5 mm BD Ultra [...] WEEK, # 2 mL, 5 Refills, Maintenance, [facility] #[id number], 170, cm, 05/20/21 15:42:00 EDT, Height Start [...] Microalbuminuria(Confirmed) Active Morbid obesity(Confirmed) Active [facility]N/[facility]DRA-Mignon Peters [phone]/[facility] active care coordination(Confirmed) Active Peripheral vascular disease(Confirmed) Active Umbilical hernia(Confirmed) Active 1per 2017 and 2019 [facility] notes Social History Social History Type Response Smoking Status Never (less than 100 in lifetime) entered on: 09/03/19 Sex Female 1per pt
--- OUTSIDE RECORDS SUMMARY | 2023-02-20 15:13 | XMS_ITS | Continuity of Care Document ---
Author Name Unknown Organization [facility] Address [address] [place] [address]- Care Team Providers Care Pool Finisher Name Role Phone Josef MOSHER, Mmaie Patterson Primary Care Physician Encounter [facility] [place] Date(s): 04/09/22 - 04/13/[address] [address]- Encounter Diagnosis Wound infection after surgery(Final) - 04/10/22 Sepsis(Final) - 04/10/22 Discharge Disposition: A-D/C Home Attending Physician: Sugar MOSHER, Porsha Plascencia Admitting Physician: Daron Barlow MD Referring Physician: Not on Staff, Referring MD Allergies, Adverse Reactions, Alerts Substance Reaction Severity Status ibuprofen ABD PAIN Active morphine Vomiting and itchy Active traMADol Itchy, Hives Active Immunizations Given and Recorded Vaccine Date Status Refusal Reason SARS-CoV-2 mRNA ([id number]) vax 02/22/22 Recorded SARS-CoV-2 (COVID-19) mRNA BNT-162b2 [...] Note: VIS GIVEN-DATED 05/30/11 2Result Comment: LOT [id number] EXP 04 MAY 2010 3Admin Note: VIS [...] 03/10/22 9:04:00 EDT, Route to Pharmacy Electronically, [facility] #[id number], Partial fill upon patient request if the prescription is for a schedule II opi... Start Date: 03/10/22 Status: Ordered aspirin 81 mg oral delayed release tablet 81 mg, By Mouth, Daily, # 30 tablet, Refills 0, Tot. Refills 0, Maintenance, 04/13/22 16:40:00 EDT,Route to Pharmacy Electronically, [facility], Partial fill upon patient request if the prescription is for a schedule II opioid drug., 17... Start Date: 04/13/22 Stop Date: 05/13/22 Status: Ordered atorvastatin 10 mg oral tablet 1 tablet, By Mouth, Daily, # 90 tablet, 1 Refills, Maintenance, 12/13/21 19:21:00 EST, [facility] #[id number], 170, cm, 07/28/21 10:50:00 EDT, Height Start Date: 12/13/21 Status: Ordered Blood Pressure Monitor See Instructions, # 1 each, Maintenance, DX HTN, ICD E11.9, 01/11/22 9:28:00 EST, Supply Start Date: 01/11/22 Status: Ordered carvedilol 25 mg oral tablet 25 mg, 1, tablet, By Mouth, 2 times a day, # 60 tablet, Refills 0, Tot. Refills 0, Maintenance, 04/13/22 16:40:00 EDT, Route to Pharmacy Electronically, [facility], Partial fill upon patient request if the prescription is for a schedule... Start Date: 04/13/22 Stop Date: 05/13/22 Status: Ordered cephalexin monohydrate 500 mg oral capsule 1 capsule = 500 mg, By Mouth, Every 6 hours, for 5 days, # 20 capsule, 0 Refills, Acute 04/18/22 16:41:00 EDT, 04/13/22 16:41:00 EDT, Capsule, [facility], Partial fill upon patient request if the prescription is for a schedule II opioid... Start Date: 04/13/22 Stop Date: 04/18/22 Status: Ordered Colace sodium 100 mg oral capsule 100 mg, 1, capsule, By Mouth, 2 times a day, PRN, # 60 capsule, Refills 0, Tot. Refills 0, Maintenance, for constipation, 03/16/22 14:30:00 EDT, Route to Pharmacy Electronically, [facility], Partial fill upon patient request if the pre... Start Date: 03/16/22 Status: Ordered Coreg 12.5 mg oral tablet 12.5 mg, Tablet, By Mouth, Once, [place], 04/13/22 11:08:00 EDT, Stop date 04/13/22 11:08:00 EDT Start Date: 04/13/22 Stop Date: 04/13/22 Status: Completed Darco front offloading shoe Darco front offloading shoe, See Instructions, # 1 each, Refills 0, Tot. Refills 0, Maintenance, dx: dfu, 03/14/22 10:48:00 EDT, Compound Start Date: 03/14/22 Status: Ordered Dilaudid Inj 1 mg, Injection, IV Push Slowly, Every 4 hours, PRN for Pain , Severe, Routine, 04/10/22 1:20:00 EDT Start Date: 04/10/22 Stop Date: 04/14/22 Status: Discontinued FREESTYLE LITE BLOOD GLUCOSE STRIPS FREESTYLE LITE [...] Date: 03/09/22 Stop Date: 07/07/22 Status: Ordered furosemide 20 mg oral tablet 20 mg, 1, tablet, By Mouth, Daily, # 30 tablet, Refills 0, Tot. Refills 0, Maintenance, 04/06/22 14:48:00 EDT, Route to Pharmacy Electronically, [facility], Partial fill upon patient request if the prescription is for a schedule II opioi... Start Date: 04/06/22 Status: Ordered insulin aspart 100 units/mL subcutaneous solution = 20 units, Subcutaneous Injection, 3 times a day before meals, # 10 mL, 11 Refills, Maintenance, 03/10/22 9:06:00 EDT, Solution, [facility] #[id number], Partial fill upon patient request if theprescription [...] tablet, 11 Refills, Maintenance, 03/09/22 14:23:00 EDT, [facility], resent - not recvd, 169, cm, 03/09/22 13:46:00 EDT, Height, 104.9, kg, 03/04/22 2:58:00 EDT, Dry Weight Start Date: 03/09/22 Status: Ordered Lantus 100 u/ml subcutaneous solution = 30 units, Subcutaneous Injection, 2 times a day, # 10 mL, 5 Refills, Maintenance, 03/10/22 9:05:00 EDT, Solution, [facility] #[id number], Partial fill upon patient request if the prescription is for a schedule II opioid drug., 169, cm, 03/09/22... Start Date: 03/10/22 Status: Ordered Offloading boot [...] By Mouth, Every 6 hours, PRN, for 3 days, # 12 tablet, Refills 0, Tot. Refills 0, Acute 04/16/22 16:41:00 EDT, Pain , Moderate, 04/13/22 16:41:00 EDT, Route to Pharmacy Electronically, [facility], Partial fill upon patie... Start Date: 04/13/22 Stop Date: 04/16/22 Status: Ordered PARoxetine 40 mg oral tablet 40 mg, 1, tablet, By Mouth, Daily, Refills 0, Maintenance, 01/11/22 9:43:00 EST Start Date: 01/11/22 Status: Ordered Plavix 75 mg oral tablet 75 mg, 1, tablet, By Mouth, Daily, # 30 tablet, Refills 0, Tot. Refills 0, Maintenance, 04/06/22 14:47:00 EDT, Route to Pharmacy Electronically, [facility], Partial fill upon patient request if the prescription is for a schedule II opioi... Start Date: 04/06/22 Status: Ordered Precision Extra Glucose Meter See [...] EDT, Height Start Date: 07/22/21 Status: Ordered Santyl Topical Oint 1 applicator, Topically, Daily, 0 Refills, Maintenance, Ointment Start Date: 04/13/22 Status: Ordered silver topical gel See Instructions, Topically Daily cover with appropriate dressing after application clean wound prior to application, # 45 mL, 0 Refills, Maintenance, 03/09/22 14:21:00 EDT, Gel, [facility] Partial fill upon patient request if the p... Start Date: 03/09/22 Status: Ordered traZODone 300 mg oral tablet 1 tablet = 300 mg, By Mouth, Daily at bedtime Start Date: 03/03/22 Status: Ordered Trulicity Pen 3 mg/0.5 mL subcutaneous solution See Instructions, ADMINISTER 0.5 ML UNDER THE SKIN EVERY WEEK. ROTATE INJECTION SITES, # 2 mL, 11 Refills, 03/09/22 14:22:00 EDT, [facility] 169, cm, 03/09/22 13:46:00 EDT, Height, 104.9, kg, 03/04/22 2:58:00 EDT, Dry Weight Start Date: 03/09/22 Status: Ordered Ventolin HFA 108 mcg/inh inhalation aerosol with adapter 1 puffs, Inhalation, 4 times a day, PRN NEEDED FOR WHEEZING, # 18 Gm, 0 Refills, [facility] #[id number], 170, cm, 01/11/22 9:39:00 EST, Height Start [...] Morbid obesity(Confirmed) Active Obese class II(Confirmed) Active [facility]N/CCA/[facility]DRA-Mignon Peters [phone]/[facility] senior living active care coordination(Confirmed) Active Peripheral vascular disease(Confirmed) Active Uncontrolled type 1 diabetes mellitus with hyperglycemia, with long-term current use of insulin(Confirmed) Active Umbilical hernia(Confirmed) Active 1per 2016 and 2018 [facility] notes Results Orders for Microbiology Reports Name Date Blood Culture 04/09/22 Blood Culture #2 04/09/22 Microbiology Reports TEST:Blood Culture STATUS:Unauthenticated BODY SITE: SOURCE:Blood COLLECTED DATE/TIME:04/09/22 7:27 PM Blood Culture SPECIMEN DESCRIPTION : BLOOD NO SITE SPECIAL REQUESTS : NONE CULTURE : NO GROWTH 4 DAYS REPORT STATUS : PRELIMINARY REPORT TEST:Blood Culture, Second Order STATUS:Unauthenticated BODY SITE: SOURCE:Blood COLLECTED DATE/TIME:04/09/22 7:27 PM Blood Culture, Second Order SPECIMEN DESCRIPTION : BLOOD NO SITE SPECIAL REQUESTS : NONE CULTURE : NO GROWTH 4 DAYS REPORT STATUS : PRELIMINARY REPORT Radiology Reports * Exam Date Time Procedure Performing Provider Status 04/10/22 2:06 AM Foot Min 3 Views Right Caron Freire; Susan (Verified) Notes: (Foot Min 3 Views Right) Reason For Exam: right great s/p amputation now cellulitis;Infection RESULT: Foot Min 3 Views Right Examination: Right foot performed on 04/10/2022. History: Reason: Infection; right great s p amputation now cellulitis; Clinical Question(s): Osteomyelitis Findings: Frontal, oblique, and lateral views of the right foot are compared to a prior study dated 03/28/2013. Since the prior study, there has been amputation of the first digit at the level of the mid proximal phalanx. No bony erosion is seen. Vascular calcification is noted. Soft tissue prominence overliesthe surgical site. The remainder of the osseous structures are unremarkable. Soft tissue swelling overlies the dorsum of the foot. IMPRESSION: Postoperative change. No radiographic evidence of osteomyelitis. Soft tissue swelling. WSN: [id number] Ordering Physician: Alfa Mendiola Dictated By: Chari Deal MD Dictated Date/Time: 04/10/22 8:27 am Reviewed By: Chari Deal MD Signed By: Chari Deal MD Signed Date/Time: 04/10/22 8:27 am Transcribed By: TY Transcribed Date/Time: 04/10/22 8:25 am Vital Signs Most recent to oldest [Reference Range]: 1 2 3 Height 170 cm (04/13/22 12:16 PM) 170 cm (04/13/22 9:59 AM) 170 cm (04/13/22 8:25 AM) Oxygen Saturation [94-100 %] 95 % (04/13/22 12:16 PM) 95 % (04/13/22 8:25 AM) 95 % (04/13/22 4:06 AM) Pulse Rate [55-90 bpm] 79 bpm (04/13/22 12:16 PM) 85 bpm (04/13/22 11:23 AM) 84 bpm (04/13/22 8:25 AM) Blood Pressure [90-138/55-84 mm Hg] 169/80mm Hg *H* (04/13/22 12:16 PM) 169/76mm Hg *H* (04/13/22 11:23 AM) 178/82mm Hg *H* (04/13/22 9:59 AM) Respiratory Rate [16-30 br/min] 18 br/min (04/13/22 4:29 PM) 18 br/min (04/13/22 12:54 PM) 18 br/min (04/13/22 12:16 PM) Temperature [96.8-100.4 DegF] 98.3 DegF (04/13/22 12:16 PM) 98.3 DegF (04/13/22 8:25 AM) 97.9 DegF (04/13/22 4:06 AM) Liters per Minute 2 L/min (04/11/22 7:28 AM) Mode of Delivery (Oxygen) Room air (04/13/22 12:16 PM) Room air (04/13/22 8:25 AM) Room air (04/13/22 4:06 AM) Blood pressure sites Arm, left (04/13/22 12:16 PM) Arm, left (04/13/22 9:59 AM) Arm, right (04/13/22 8:25 AM) Temperature Route Oral (04/13/22 12:16 PM) Oral (04/13/22 8:25 AM) Oral (04/13/22 4:06 AM) Social History Social History Type Response Smoking Status Never (less than 100 in lifetime) entered on: 09/03/19 Sex 1per pt
--- OUTSIDE RECORDS SUMMARY | 2023-02-20 15:13 | XMS_ITS | Continuity of Care Document ---
Author Name Unknown Organization [facility] Address [address] [place] [address]- Care Team Providers Care Cycle Consultant Name Role Phone Olivier MOSHER, Allegra Primary Care Physician Encounter [facility] Date(s): 09/26/22 - 10/26/22 [facility] [address] [place] [address], [place] [address] Allergies, Adverse Reactions, Alerts Substance Reaction Severity Status ibuprofen ABD PAIN Active morphine Vomiting and itchy Active traMADol Itchy, Hives Active Immunizations Given and Recorded Vaccine Date Status Refusal Reason SARS-CoV-2 mRNA ([id number]) vax 02/22/22 Recorded SARS-CoV-2 (COVID-19) mRNA BNT-162b2 [...] Note: VIS GIVEN-DATED 05/30/11 2Result Comment: LOT [id number] EXP 04 MAY 2010 3Admin Note: VIS [...] 04/24/22 9:05:00 EDT, Route to Pharmacy Electronically, [facility], Partial fill upon patient request if the prescription is for a schedule II opio... Start Date: 04/24/22 Status: Ordered ammonium lactate 5% topical lotion 1 application, Topically, 2 times a day, # 240 Gm, 0 Refills, Maintenance, 05/01/22 12:34:00 EDT, Lotion, [facility]/pharmacy #[id number], Partial fill upon patient request [...] 05/13/22 16:40:00 EDT, Route to Pharmacy Electronically, [facility], Partial fill upon patient request if the prescription is... Start Date: 05/13/22 Stop Date: 11/09/22 Status: Ordered aspirin 81 mg oral delayed release tablet 81 mg, By Mouth, Daily, # 30 tablet, Refills 0, Tot. Refills 0, Maintenance, 11/09/22 16:40:00 EST,Route to Pharmacy Electronically, [facility]/pharmacy #[id number], Partial fill upon patient request if the prescription is for a schedule II opioid drug., 169, cm,... Start Date: 11/09/22 Stop Date: 12/09/22 Status: Ordered atorvastatin 40 mg oral tablet 1 tablet = 40 mg, By Mouth, Daily, # 90 tablet, 2 Refills, Maintenance, 04/24/22 9:41:00 EDT, Tablet, [facility], Partial fill upon patient request if [...] 07/26/22 16:13:00 EDT, Route to Pharmacy Electronically, [facility]/pharmacy #[id number], Partial fill upon patient request if the prescription is for a schedule II opi... Start Date: 07/26/22 Stop Date: 01/22/23 Status: Ordered Colace sodium 100 mg oral capsule 100 mg, 1, capsule, By Mouth, 2 times a day, PRN, # 60 capsule, Refills 0, Tot. Refills 0, Maintenance, for constipation, 03/16/22 14:30:00 EDT, Route to Pharmacy Electronically, [facility], Partial fill upon patient request if [...] 0 Refills, Maintenance, 09/21/22 11:57:00 EST, Tablet, [facility]/pharmacy #[id number], Partial fill upon patient request [...] 10/16/22 10:25:00 EST, Route to Pharmacy Electronically, [facility] #[id number], Partial fill upon patientrequest if the prescription [...] Refills, Soft Stop, 10/16/22 8:19:00 EST, Solution, [facility]/pharmacy #[id number], Partial fill upon patient request [...] 09/20/22 11:19:00 EST, Route to Pharmacy Electronically, [facility]/pharmacy #[id number], Partial fillupon patient request if [...] 10/16/22 10:24:00 EST, Route to Pharmacy Electronically, [facility] #[id number], Partial fill upon patientrequest if the prescription is for a schedule II op... Start Date: 10/16/22 Stop Date: 04/14/23 Status: Ordered NovoLOG FlexPen 100 units/mL injectable solution = 20 units, Subcutaneous Injection, 3 times a day before meals, INJECT 20 UNITS INTO SKIN THREE TIMES DAILY BEFORE A MEAL, # 15 mL, 10 Refills, Maintenance, 08/01/22 16:09:00 EDT, [facility], 169, cm, 08/01/22 14:14:00 EDT, Height, [...] 04/24/22 9:03:00 EDT, Route to Pharmacy Electronically, [facility], Partial fill upon patient request if the prescription is for a schedule II opio... Start Date: 04/24/22 Status: Ordered ProAir HFA 90 mcg/inh inhalation aerosol 1 puffs, Inhalation, Every 4 hours, PRN as needed for wheezing, # 18 Gm, 0 Refills, Maintenance, 10/03/22 6:38:00 EST, Aerosol, [facility] #[id number], Partial fill upon patient request if the [...] 2 Refills, Maintenance, 10/16/22 13:14:00 EST, Solution, [facility]/pharmacy #[id number], Partial fill upon patient request if the prescription is for a schedule II opioid drug., 169, cm, 10/09/22 8:39... Start Date: 10/16/22 Status: Ordered Ventolin HFA 108 mcg/inh inhalation aerosol with adapter 2 puffs, Inhalation, Every 6 hours, PRN Wheezing/Shortness of Breath, # 8 Gm, 1 Refills, Maintenance, 05/30/22 10:56:00 EDT, [facility], Partial fill upon patient request if [...] Obese class II Confirmed Active BHN/CCA/CP- Angle [phone] senior care active care coordination Confirmed Active Peripheral vascular disease - right SFA angioplasty/right great toe amputation 2021 Confirmed Active Umbilical hernia Confirmed Active 1per 2016 and 2018 [facility] notes Social History Social History Type Response Smoking Status Never (less than 100 in lifetime) entered on: 09/03/19 Sex 1per pt Patient Care team information Care Team Personnel Name: Allegra Aguayo MD Position: [facility] Resident Member Role: PCP Address: Address: [address] [place] [address] Name: Vera Locke RN Position: S RN [...] Persons Name: MIKEY SEAY Address: home [address] [address] Name: MIKEY AYALA Address: home [address] [place] [address] Name: TANIA COPPOLA Address: home [address] [place] [id number] Name: TANIA MUÑIZ Address: home [address] [place] [id number]
--- OUTSIDE RECORDS SUMMARY | 2023-02-20 15:13 | XMS_ITS | Continuity of Care Document ---
Author Name Unknown Organization [facility] Address [address] [place] [address]- Care Team Providers Care Wet Chemistry Analyst Name Role Phone Josef MOSHER, Mamie Patterson Primary Care Physician Encounter [facility] Date(s): 11/01/21 - 12/17/21 [facility] [address] [place], [place] [address] Attending Physician: Not on Staff, Attending [...] Note: VIS GIVEN-DATED 05/30/11 2Result Comment: LOT [id number] EXP 04 MAY 2010 3Admin Note: VIS [...] 07/20/21 9:24:00 EDT, Route to Pharmacy Electronically, [facility] #[id number], 170, cm, 07/20/21 8:57:00 EDT, Height Start Date: 07/20/21 Stop Date: 10/13/22 Status: Ordered atorvastatin 10 mg oral tablet 1 tablet, By Mouth, Daily, # 90 tablet, 1 Refills, Maintenance, 12/13/21 19:21:00 EST, [facility] #[id number], 170, cm, 07/28/21 10:50:00 EDT, Height Start [...] 07/20/21 9:33:00 EDT, Route to Pharmacy Electronically, [facility] #[id number], Partial fill upon patient request if the prescription is for a schedule II opi... Start Date: 07/20/21 Stop Date: 10/18/21 Status: Ordered insulin aspart 100 units/mL subcutaneous solution = 20 units, Subcutaneous Injection, 3 times a day before meals, 90 day supply as requested, # 30 mL, 0 Refills, Maintenance, 12/16/21 12:02:00 EST, Solution, [facility] #[id number], Partial fillupon patient request if the prescription [...] tablet, 11 Refills, Maintenance, 10/24/21 9:05:00 EST, [facility], 170, cm, 07/28/21 10:50:00 EDT, Height Start Date: 10/24/21 Status: Ordered Januvia 50 mg oral tablet 1 tablet = 50 mg, By Mouth, Daily, dose decreased, # 30 tablet, 11 Refills, Maintenance, 09/20/21 13:40:00 EST, Tablet, [facility] #[id number], Partial fill upon patient request if the prescription is for a schedule II opioid drug., 170, cm, 09/2... Start Date: 09/20/21 Status: Ordered lisinopril 40 mg oral tablet 1 tablet = 40 mg, By Mouth, Daily, # 90 tablet, 4 Refills, Maintenance, 07/20/21 9:25:00 EDT, Tablet, [facility][id number], 170, cm, 07/20/21 8:57:00 EDT, Height Start Date: 07/20/21 Stop Date: 10/13/22 Status: Ordered Melatonin 5 mg oral tablet 0 Refills, Maintenance, 01/29/19 10:09:09 EDT Start Date: 01/29/19 Status: Ordered OXcarbazepine 300 mg oral tablet TK 1 T PO BID Start Date: 01/29/19 Status: Ordered PARoxetine 40 mg oral tablet TK 1 T PO HS Start Date: 01/29/19 Status: Ordered Pen [place], 31 G x 5 mm BD Ultra Fine III See Instructions, # 300 each, Refills 4, Tot. Refills 4, Maintenance, Use for injection of insulin up to 5 times daily. For type 2 diabetes mellitus., 09/28/22 13:05:00 EST, if possible please give box rather than bag as patient has difficulty when pe... Start Date: 09/28/22 Stop Date: 12/22/23 Status: Ordered Pen [place], 31 G x 5 mm BD Ultra Fine III See Instructions, # 150 each, Refills 11, Tot. Refills 11, Maintenance, use to inject insulin up tofive times daily dx e11.9, 10/21/20 15:55:00 EST, Supply, 170, cm, 05/20/20 14:48:00 EDT, Height, 100.5, kg, 05/30/19 9:39:00 EDT, Dry Weight Start Date: 10/21/20 Status: Ordered Pen [place], 31 G x 5 mm BD Ultra [...] FOR 14 DAYS, # 15 Gm, 0 Refills,[facility] #[id number], 14, APPLY TOPICALLY TO THE AFFECTED AREA TWICE DAILY FOR 14 DAYS, 170,cm, 07/28/21 10:50:00 EDT, Height Start Date: 11/02/21 Status: Ordered Trulicity Pen 3 mg/0.5 mL subcutaneous solution 0.5 mL = 3 mg, Subcutaneous Injection, Every week, rotate injection sites, # 2 mL, 0 Refills, Maintenance, 11/30/21 14:02:00 EST, Solution, [facility] #[id number], Partial fill upon patient request if the prescription is for a schedule II opioid... Start Date: 11/30/21 Status: Ordered Ventolin HFA 108 mcg/inh inhalation aerosol with adapter 1 puffs, Inhalation, 4 times a day, PRN for wheezing, # 8 Gm, 2 Refills, Maintenance, 09/22/21 11:41:00 EST, Aerosol, [facility] #[id number], Partial fill upon patient request if the [...] Microalbuminuria(Confirmed) Active Morbid obesity(Confirmed) Active BHN/CCA/AUDRA-Mignon Peters [phone]/Health retirement active care coordination(Confirmed) Active Peripheral vascular disease(Confirmed) Active Umbilical hernia(Confirmed) Active 1per 2017 and 2019 [facility] notes Social History Social History Type Response Smoking Status Never (less than 100 in lifetime) entered on: 09/03/19 Sex Female 1per pt
--- OUTSIDE RECORDS SUMMARY | 2023-02-20 15:13 | XMS_ITS | Continuity of Care Document ---
Author Name Unknown Organization [facility] Address [address] [place] [address]- Care Team Providers Care Employment Specialist Name Role Phone Olivier MOSHER, Allegra Primary Care Physician [phone] Encounter [facility] Date(s): 09/27/22 - 10/27/22 [facility] [address], [place] [address] Allergies, Adverse Reactions, Alerts Substance Reaction Severity Status ibuprofen ABD PAIN Active morphine Vomiting and itchy Active traMADol Itchy, Hives Active Immunizations Given and Recorded Vaccine Date Status Refusal Reason SARS-CoV-2 mRNA ([id number]) vax 02/22/22 Recorded SARS-CoV-2 (COVID-19) mRNA BNT-162b2 [...] Note: VIS GIVEN-DATED 05/30/11 2Result Comment: LOT [id number] EXP 04 MAY 2010 3Admin Note: VIS [...] 04/24/22 9:05:00 EDT, Route to Pharmacy Electronically, [facility], Partial fill upon patient request if the prescription is for a schedule II opio... Start Date: 04/24/22 Status: Ordered ammonium lactate 5% topical lotion 1 application, Topically, 2 times a day, # 240 Gm, 0 Refills, Maintenance, 05/01/22 12:34:00 EDT, Lotion, [facility]/pharmacy #[id number], Partial fill upon patient [...] 05/13/22 16:40:00 EDT, Route to Pharmacy Electronically, [facility], Partial fill upon patient request if the prescription is... Start Date: 05/13/22 Stop Date: 11/09/22 Status: Ordered aspirin 81 mg oral delayed release tablet 81 mg, By Mouth, Daily, # 30 tablet, Refills 0, Tot. Refills 0, Maintenance, 11/09/22 16:40:00 EST,Route to Pharmacy Electronically, [facility]/pharmacy #[id number], Partial fill upon patient request if the prescription is for a schedule II opioid drug., 169, cm,... Start Date: 11/09/22 Stop Date: 12/09/22 Status: Ordered atorvastatin 40 mg oral tablet 1 tablet = 40 mg, By Mouth, Daily, # 90 tablet, 2 Refills, Maintenance, 04/24/22 9:41:00 EDT, Tablet, [facility], Partial fill upon patient request [...] 16:13:00 EDT, Route to Pharmacy Electronically, [facility]/pharmacy #[id number], Partial fill upon patient request if the prescription is for a schedule II opi... Start Date: 07/26/22 Stop Date: 01/22/23 Status: Ordered Colace sodium 100 mg oral capsule 100 mg, 1, capsule, By Mouth, 2 times a day, PRN, # 60 capsule, Refills 0, Tot. Refills 0, Maintenance, for constipation, 03/16/22 14:30:00 EDT, Route to Pharmacy Electronically, [facility], Partial fill upon patient request [...] Refills, Maintenance, 09/21/22 11:57:00 EST, Tablet, [facility]/pharmacy #[id number], Partial fill upon patient [...] 10/16/22 10:25:00 EST, Route to Pharmacy Electronically, [facility] #[id number], Partial fill upon patientrequest if the prescription [...] Refills, Soft Stop, 10/16/22 8:19:00 EST, Solution, [facility]/pharmacy #[id number], Partial fill upon patient [...] 09/20/22 11:19:00 EST, Route to Pharmacy Electronically, [facility]/pharmacy #[id number], Partial fillupon patient request if the prescription is for a s... Start Date: 09/20/22 Status: Ordered levoFLOXacin 250 mg oral tablet 1 tablet = 250 mg, By Mouth, Every 24 hours, # 14 tablet, 0 Refills, Maintenance, 09/20/22 11:28:00EST, Tablet, [facility]/pharmacy #[id number], Partial fill upon patient request if the prescription is for a schedule II opioid drug., 169, cm, 09/20/22 9:22:00 EST... Start Date: 09/20/22 Stop Date: 10/04/22 Status: Ordered lisinopril 10 mg oral tablet 10 mg, 1, tablet, By Mouth, Daily, # 90 tablet, Refills 1, Tot. Refills 1, Maintenance, 10/16/22 10:24:00 EST, Route to Pharmacy Electronically, [facility] #[id number], Partial fill upon patientrequest if the prescription is for a schedule II op... Start Date: 10/16/22 Stop Date: 04/14/23 Status: Ordered NovoLOG FlexPen 100 units/mL injectable solution = 20 units, Subcutaneous Injection, 3 times a day before meals, INJECT 20 UNITS INTO SKIN THREE TIMES DAILY BEFORE A MEAL, # 15 mL, 10 Refills, Maintenance, 08/01/22 16:09:00 EDT, [facility], 169, cm, 08/01/22 14:14:00 EDT, Height, [...] 04/24/22 9:03:00 EDT, Route to Pharmacy Electronically, [facility], Partial fill upon patient request if the prescription is for a schedule II opio... Start Date: 04/24/22 Status: Ordered ProAir HFA 90 mcg/inh inhalation aerosol 1 puffs, Inhalation, Every 4 hours, PRN as needed for wheezing, # 18 Gm, 0 Refills, Maintenance, 10/03/22 6:38:00 EST, Aerosol, [facility] #[id number], Partial fill upon patient request if the [...] Refills, Maintenance, 10/16/22 13:14:00 EST, Solution, [facility]/pharmacy #[id number], Partial fill upon patient request if the prescription is for a schedule II opioid drug., 169, cm, 10/09/22 8:39... Start Date: 10/16/22 Status: Ordered Ventolin HFA 108 mcg/inh inhalation aerosol with adapter 2 puffs, Inhalation, Every 6 hours, PRN Wheezing/Shortness of Breath, # 8 Gm, 1 Refills, Maintenance, 05/30/22 10:56:00 EDT, [facility], Partial fill upon patient request [...] Obese class II Confirmed Active BHN/CCA/CP- Angle [phone] mcc active care coordination Confirmed Active Peripheral vascular disease - right SFA angioplasty/right great toe amputation 2021 Confirmed Active Umbilical hernia Confirmed Active 1per 2016 and 2018 [facility] notes Social History Social History Type Response Smoking Status Never (less than 100 in lifetime) entered on: 09/03/19 Sex 1per pt Patient Care team information Care Team Personnel Name: Allegra Aguayo MD Position: [facility] Resident Member Role: PCP Address: Address: [address] [place] [address] Name: Vera Locke RN Position: S RN [...] Name: MIKEY SEAY Address: home [address] [address] Name: MIKEY AYALA Address: home [address] [place] [address] Name: TANIA COPPOLA Address: home [address] [place] [id number] Name: TANIA MUÑIZ Address: home [address] [place] [id number]
--- OUTSIDE RECORDS SUMMARY | 2023-02-20 15:13 | XMS_ITS | Continuity of Care Document ---
Author Name Unknown Organization [facility] Adult Medicine Address [address] [place] [address]- Care Team Providers Care Refinery Operator Gas [employer] Name Role Phone Sangeetha MOSHER, Marcia Koroma Primary Care Physician Encounter [facility] Date(s): 03/15/21 - 04/14/21 [facility] Adult Medicine [address] [place] [address]- Allergies, Adverse Reactions, Alerts Substance Reaction Severity [...] Note: VIS GIVEN-DATED 05/30/11 2Result Comment: LOT [id number] EXP 04 MAY 2010 3Admin Note: VIS given Medications albuterol 90 mcg/inh inhalation powder 2 puffs, Inhalation, Every 6 hours, PRN as needed, # 1 each, 11 Refills, Maintenance, 12/08/20 11:02:00 EST, Powder, [facility] #[id number], 2 puffs Inhalation Every 6 hours,PRN:as needed, [...] 07/30/20 18:34:00 EDT, Route to Pharmacy Electronically, [facility] #[id number], 170, cm, 05/20/20 14:48:00 EDT, Height, 100.5, kg, 05/30/19 9:39:00 EDT, Dry... Start Date: 07/30/20 Stop Date: 07/25/21 Status: Ordered aspirin 81 mg oral delayed release tablet 81 mg, 1, tablet, By Mouth, Daily, # 30 tablet, Refills 11, Tot. Refills 11, Maintenance, 05/20/20 14:45:00 EDT, Route to Pharmacy Electronically, [facility] #[id number], 170, cm, 05/20/20 14:08:00 EDT, Height, 100.5, kg, 05/30/19 9:39:00 EDT, Start Date: 05/20/20 Status: Ordered atorvastatin 10 mg oral tablet 1 tablet = 10 mg, By Mouth, Daily, # 30 tablet, 11 Refills, Maintenance, 05/20/20 14:46:00 EDT, [facility] #[id number], 170, cm, 05/20/20 14:08:00 EDT, Height, 100.5, [...] tablet, 0 Refills, Maintenance, 03/28/21 10:39:00 EDT, [facility]ed [facility] #[id number], 170, cm, 12/21/20 9:18:00 EST, Height, 100.5, kg, 05/30/19 9:39:00 EDT, Dry Weight Start Date: 03/28/21 Status: Ordered Lantus Solostar Pen 100 units/mL subcutaneous solution See Instructions, Inject 40 units under the skin twice daily., # 24 mL, 3 Refills, Maintenance, 01/29/21 9:00:00 EDT, [facility]ed [facility] #[id number], 170, cm, 12/21/20 9:18:00 EST, Height, 100.5, kg, 05/30/19 9:39:00 EDT, Dry Weight Start Date: 01/29/21 Status: Ordered lisinopril 40 mg oral tablet 1 tablet = 40 mg, By Mouth, Daily, # 90 tablet, 4 Refills, Maintenance, 02/03/20 12:39:00 EDT, Tablet, [facility] #[id number], 170, cm, 12/16/19 10:11:00 EST, Height, 100.5, kg, 05/30/19 9:39:00EDT, Dry Weight Start Date: 02/03/20 Stop Date: 04/28/21 Status: Ordered Melatonin 5 mg oral tablet 0 Refills, Maintenance, 01/29/19 10:09:09 EDT Start Date: 01/29/19 Status: Ordered NovoLOG FlexPen 100 units/mL injectable solution See Instructions, INJECT 20 UNITS SUBCUTANEOULSY THREE TIMES DAILY BEFORE MEALS., # 48 mL, 0 Refills, 03/30/21 11:25:00 EDT, [facility]ed [facility] #[id number], 170, cm, 12/21/20 9:18:00 EST, Height, 100.5,kg, 05/30/19 9:39:00 EDT, Dry Weight Start Date: 03/30/21 Status: Ordered OXcarbazepine 300 mg oral tablet TK 1 T PO BID Start Date: 01/29/19 Status: Ordered PARoxetine 40 mg oral tablet TK 1 T PO HS Start Date: 01/29/19 Status: Ordered Pen [place], 31 G x 5 mm BD Ultra Fine III See Instructions, # 150 each, Refills 11, Tot. Refills 11, Maintenance, use to inject insulin up tofive times daily dx e11.9, 10/21/20 15:55:00 EST, Supply, 170, cm, 05/20/20 14:48:00 EDT, Height, 100.5, kg, 05/30/19 9:39:00 EDT, Dry Weight Start Date: 10/21/20 Status: Ordered Pen [place], 31 G x 5 mm BD Ultra [...] 5 Refills, Maintenance, 02/01/21 14:49:00 EDT, Solution, [facility] #[id number], to replace 0.75 mg dose, 170, cm, [...] Microalbuminuria(Confirmed) Active Morbid obesity(Confirmed) Active BHN/CCA/AUDRA-Mignon Peters [phone]/Health prison active care coordination(Confirmed) Active Peripheral vascular disease(Confirmed) Active Umbilical hernia(Confirmed) Active 1per 2017 and 2019 [facility] notes Social History Social History Type Response Smoking Status Never (less than 100 in lifetime) entered on: 09/03/19 Sex Female 1per pt
--- OUTSIDE RECORDS SUMMARY | 2023-02-20 15:13 | XMS_ITS | Continuity of Care Document ---
Author Name Unknown Organization [facility] Address [address] [place] [id number] Care Team Providers Care Cryptologic Technician Operator/Analyst Name Role Phone Olivier MOSHER, Allegra Primary Care Physician Encounter [facility] [id number] Date(s): 06/27/22 - 07/04/22 [facility] [address], [place] [address] Attending Physician: Victor Hugo MOSHER, Aditi Kilgore Admitting Physician: Victor Hugo MOSHER, Aditi Kilgore Referring Physician: Allegra Aguayo MD Allergies, Adverse Reactions, Alerts Substance Reaction Severity Status ibuprofen ABD PAIN Active morphine Vomiting and itchy Active traMADol Itchy, Hives Active Immunizations Given and Recorded Vaccine Date Status Refusal Reason SARS-CoV-2 mRNA ([id number]) vax 02/22/22 Recorded SARS-CoV-2 (COVID-19) mRNA BNT-162b2 [...] Note: VIS GIVEN-DATED 05/30/11 2Result Comment: LOT [id number] EXP 04 MAY 2010 3Admin Note: VIS [...] 04/24/22 9:05:00 EDT, Route to Pharmacy Electronically, [facility], Partial fill upon patient request if the prescription is for a schedule II opio... Start Date: 04/24/22 Status: Ordered ammonium lactate 5% topical lotion 1 application, Topically, 2 times a day, # 240 Gm, 0 Refills, Maintenance, 05/01/22 12:34:00 EDT, Lotion, [facility]/pharmacy #[id number], Partial fill upon patient request if the prescription is for a schedule II opioid drug., 1 application Topically 2 times a da... Start Date: 05/01/22 Stop Date: 05/31/22 Status: Ordered aspirin 81 mg oral delayed release tablet 81 mg, By Mouth, Daily, # 30 tablet, Refills 5, Tot. Refills 5, Maintenance, 05/13/22 16:40:00 EDT,Route to Pharmacy Electronically, [facility], Partial fill upon patient request if the prescription is for a schedule II opioid drug.,... Start Date: 05/13/22 Stop Date: 11/09/22 Status: Ordered atorvastatin 40 mg oral tablet 1 tablet = 40 mg, By Mouth, Daily, # 90 tablet, 2 Refills, Maintenance, 04/24/22 9:41:00 EDT, Tablet, [facility], Partial fill upon patient request if [...] 05/13/22 16:40:00 EDT, Route to Pharmacy Electronically, [facility], Partial fill upon patient request if the prescription is for a schedul... Start Date: 05/13/22 Stop Date: 11/09/22 Status: Ordered Colace sodium 100 mg oral capsule 100 mg, 1, capsule, By Mouth, 2 times a day, PRN, # 60 capsule, Refills 0, Tot. Refills 0, Maintenance, for constipation, 03/16/22 14:30:00 EDT, Route to Pharmacy Electronically, [facility], Partial fill upon patient request if [...] Refills 3, Tot. Refills 3, Hard Stop 11/04/22 14:23:00 EST, USE TO TEST 4 TIMES DAILY, 07/07/22 14:23:00 EDT, Supply, 170, cm, 04/24/22 8:36:00 EDT, Height,104.9, kg, 03/04/22 2:58:00 EDT, Dry Weight Start Date: 07/07/22 Stop Date: 11/04/22 Status: Ordered Freestyle Lite Test Strips See Instructions, for 30 days, # 100 each, Refills 3, Tot. Refills 3, Hard Stop 08/23/22 9:03:00 EDT, USE TO TEST 4 TIMES DAILY, 04/25/22 9:03:00 EDT, Supply, 170, cm, 04/24/22 8:36:00 EDT, Height, 104.9, kg, 03/04/22 2:58:00 EDT, Dry Weight Start Date: 04/25/22 Stop Date: 08/23/22 Status: Ordered Freestyle Lite Test Strips See Instructions, # 100 each, Refills 3, Tot. Refills 3, Maintenance, USE TO TEST 4 TIMES DAILY, 11/04/22 14:23:00 EST, Supply Start Date: 11/04/22 Stop Date: 03/04/23 Status: Ordered furosemide 20 mg oral tablet 20 mg, 1, tablet, By Mouth, Daily, # 30 tablet, Refills 5, Tot. Refills 5, Maintenance, 04/24/22 9:02:00 EDT, Route to Pharmacy Electronically, [facility], Partial fill upon patient request if the prescription is for a schedule II opio... Start Date: 04/24/22 Status: Ordered insulin aspart 100 units/mL subcutaneous solution = 20 units, Subcutaneous Injection, 3 times a day before meals, # 10 mL, 11 Refills, Maintenance, 03/10/22 9:06:00 EDT, [facility] #[id number], Partial fill upon patient request if theprescription [...] 03/09/22 Stop Date: 07/07/22 Status: Ordered Januvia 25 mg oral tablet 1 tablet = 25 mg, By Mouth, Daily, dose decreased, # 90 tablet, 0 Refills, Maintenance, 06/21/22 14:19:00 EDT, Tablet, [facility], Partial fill upon patient request if the prescription is for a schedule II opioid drug., 169, cm, ... Start Date: 06/21/22 Stop Date: 09/19/22 Status: Ordered Lantus 100 u/ml subcutaneous solution = 30 units, Subcutaneous Injection, 2 times a day, # 10 mL, 5 Refills, Maintenance, 03/10/22 9:05:00 EDT, Solution, [facility] #[id number], Partial fill upon patient request if the prescription is for a schedule II opioid drug., 169, cm, 03/09/22... Start Date: 03/10/22 Status: Ordered lisinopril 10 mg oral tablet 10 mg, 1, tablet, By Mouth, Daily, # 90 tablet, Refills 4, Tot. Refills 4, Maintenance, 06/21/22 14:30:00 EDT, Route to Pharmacy Electronically, [facility], Partial fill upon patient request if the prescription is for a schedule II opi... Start Date: 06/21/22 Stop Date: 09/14/23 Status: Ordered Offloading boot Offloading boot, See [...] at bedtime, PRN, for 10 days, # 10 tablet, Refills 0, Tot. Refills0, Acute 07/07/22 14:41:00 EDT, as needed for pain, 06/27/22 14:41:00 EDT, Route to Pharmacy Electronically, [facility]/pharmacy #[id number], Partial fill upon jeremy... Start Date: 06/27/22 Stop Date: 07/07/22 Status: Ordered PARoxetine 40 mg oral tablet 40 mg, 1, tablet, By Mouth, Daily, Refills 0, Maintenance, 01/11/22 9:43:00 EST Start Date: 01/11/22 Status: Ordered Plavix 75 mg oral tablet 75 mg, 1, tablet, By Mouth, Daily, # 30 tablet, Refills 5, Tot. Refills 5, Maintenance, 04/24/22 9:03:00 EDT, Route to Pharmacy Electronically, [facility], Partial fill upon patient request if [...] 0 Refills, Maintenance, 04/18/22 9:51:00 EDT, Aerosol, [facility], Partial fill upon patient request if [...] 0 Refills, Maintenance, 03/09/22 14:21:00 EDT, Gel, [facility], Partial fill upon patient request if the p... Start Date: 03/09/22 Status: Ordered traZODone 300 mg oral tablet 1 tablet = 300 mg, By Mouth, Daily at bedtime Start Date: 03/03/22 Status: Ordered Trulicity Pen 3 mg/0.5 mL subcutaneous solution See Instructions, ADMINISTER 0.5 ML UNDER THE SKIN EVERY WEEK. ROTATE INJECTION SITES, # 2 mL, 11 Refills, 03/09/22 14:22:00 EDT, [facility]., 169, cm, 03/09/22 13:46:00 EDT, Height, 104.9, kg, 03/04/22 2:58:00 EDT, Dry Weight Start Date: 03/09/22 Status: Ordered Tylenol 8 Hour 650 mg oral tablet, extended release 2 tablet = 1,300 mg, By Mouth, Every 8 hours, PRN as needed for pain, # 24 tablet, 0 Refills, Maintenance, 04/24/22 9:43:00 EDT, ER Tablet, [facility], Partial fill upon patient request if the prescription is for a schedule II opioid d... Start Date: 04/24/22 Status: Ordered Ventolin HFA 108 mcg/inh inhalation aerosol with adapter 2 puffs, Inhalation, Every 6 hours, PRN Wheezing/Shortness of Breath, # 8 Gm, 1 Refills, Maintenance, 05/30/22 10:56:00 ED[facility] fill upon patient request if [...] Active Obese class II(Confirmed) Active [facility]-Mignon Peters [phone]/Health longterm active care coordination(Confirmed) Active Peripheral vascular disease(Confirmed) Active Umbilical hernia(Confirmed) Active 1per 2016 and 2018 [place] notes Vital Signs Most recent to oldest [Reference Range]: 1 Height 169 cm (06/27/22 2:09 PM) Weight 100.09 kg (06/27/22 2:09 PM) Oxygen Saturation [94-100 %] 98 % (06/27/22 2:09 PM) Pulse Rate [55-90 bpm] 77 bpm (06/27/22 2:09 PM) Body Mass Index [18.5-24.99] 35.04 *>HHI* (06/27/22 2:09 PM) Blood Pressure [90-138/55-84 mm Hg] 160/ 98mm Hg *H* (06/27/22 2:09 PM) Mode of Delivery (Oxygen) Room air (06/27/22 2:09 PM) Blood pressure sites Arm, right (06/27/22 2:09 PM) Weight Obtained Via Patient/family state d (06/27/22 2:09 PM) Social History Social History Type Response Smoking Status Never (less than 100 in lifetime) entered on: 09/03/19 Sex 1per pt Care Team Personnel Name: Allegra Aguayo MD Address: [address] [place] [address]
--- OUTSIDE RECORDS SUMMARY | 2023-02-20 15:14 | XMS_ITS | Continuity of Care Document ---
Author Name Unknown Organization [facility] ter Address [address] [place] [id number]- Care Team Providers Care Channel Marketing Coordinator Name Role Phone Olivier MOSHER, Allegra Primary Care Physician Encounter [facility] Date(s): 09/11/22 - 09/12/[address] [address]- Encounter Diagnosis PAD (peripheral artery disease)(Final) - 09/12/22 Discharge Disposition: A-D/C Home Attending Physician: Victor Hugo MOSHER, Aditi Kilgore Admitting Physician: Aditi Gay MD Referring Physician: Aditi Gay MD Allergies, Adverse Reactions, Alerts Substance Reaction Severity Status ibuprofen ABD PAIN Active morphine Vomiting and itchy Active traMADol Itchy, Hives Active Immunizations Given and Recorded Vaccine Date Status Refusal Reason SARS-CoV-2 mRNA ([id number]) vax 02/22/22 Recorded SARS-CoV-2 (COVID-19) mRNA BNT-162b2 [...] Note: VIS GIVEN-DATED 05/30/11 2Result Comment: LOT [id number] EXP 04 MAY 2010 3Admin Note: VIS given Medications 4 x 4 sterile gauze 4 x 4 sterile gauze, See Instructions, # 1 Unknown, Refills 0, Tot. Refills 0, Maintenance, please dispense 1 box of 4x4 sterile gauze for right toe infection ICD 10 L03.039, length of use 2 months, 07/19/22 12:40:00 EDT, Supply Start Date: 07/19/22 Status: Ordered acetaminophen 325 mg oral tablet 650 mg, 2, tablet, By Mouth, Every 4 hours, PRN, for 30 days, # 360 tablet, Refills 0, Tot. Refills0, Acute 10/12/22 13:18:00 EST, Pain , Mild, 09/12/22 13:18:00 EST, Route to Pharmacy Electronically, [facility]/pharmacy #[id number], Partial fill upon patient req... Start Date: 09/12/22 Stop Date: 10/12/22 Status: Ordered Alcohol Wipes See Instructions, # [...] 04/24/22 9:05:00 EDT, Route to Pharmacy Electronically, [facility], Partial fill upon patient request if the prescription is for a schedule II opio... Start Date: 04/24/22 Status: Ordered amLODIPine 10 mg oral tablet 10 mg, Tablet, By Mouth, 09/12/22 9:00:00 EST Start Date: 09/12/22 Stop Date: 09/12/22 Status: Completed ammonium lactate 5% topical lotion 1 application, Topically, 2 times a day, # 240 Gm, 0 Refills, Maintenance, 05/01/22 12:34:00 EDT, Lotion, [facility]/pharmacy #[id number], Partial fill upon patient request if the prescription is for a schedule II opioid drug., 1 application Topically 2 times a da... Start Date: 05/01/22 Stop Date: 05/31/22 Status: Ordered aspirin 81 mg oral delayed release tablet 81 mg, By Mouth, Daily, # 30 tablet, Refills 5, Tot. Refills 5, Maintenance, 05/13/22 16:40:00 EDT,Route to Pharmacy Electronically, [facility], Partial fill upon patient request if the prescription is for a schedule II opioid drug.,... Start Date: 05/13/22 Stop Date: 11/09/22 Status: Ordered atorvastatin 40 mg oral tablet 1 tablet = 40 mg, By Mouth, Daily, # 90 tablet, 2 Refills, Maintenance, 04/24/22 9:41:00 EDT, Tablet, [facility], Partial fill upon patient request if the prescription is for a schedule II opioid drug., 170, cm, 04/24/22 8:36:00 EDT, H... Start Date: 04/24/22 Status: Ordered Blood Pressure Monitor See Instructions, # 1 each, Maintenance, DX HTN, ICD E11.9, 01/11/22 9:28:00 EST, Supply Start Date: 01/11/22 Status: Ordered carvedilol 25 mg oral tablet 25 mg, Tablet, By Mouth, 09/12/22 9:00:00 EST Start Date: 09/12/22 Stop Date: 09/12/22 Status: Completed carvedilol 25 mg oral tablet 25 mg, 1, tablet, By Mouth, 2 times a day, # 60 tablet, Refills 5, Tot. Refills 5, Maintenance, 07/26/22 16:13:00 EDT, [id number] Partial fill upon patient request if the prescription is for a schedule II opi... Start Date: 07/26/22 Stop Date: 01/22/23 Status: Ordered Colace sodium 100 mg oral capsule 100 mg, 1, capsule, By Mouth, 2 times a day, PRN, # 60 capsule, Refills 0, Tot. Refills 0, Maintenance, for constipation, 03/16/22 14:30:00 EDT, Route to Pharmacy Electronically, [facility], Partial fill upon patient request [...] 09/16/22 11:27:00 EST, 09/06/22 11:27:00 EDT, Tablet, [facility]/pharmacy #[id number], Partial fill upon patient request [...] 07/07/22 15:52:00 EDT, Route to Pharmacy Electronically, [facility], Partial fill upon patient request [...] 6 Refills, Soft Stop, 08/01/22 16:09:00EDT, Solution, [facility], Partial fill upon patient request if the prescription isfor a schedule II opioid drug., 169, cm, 08/01/22 1... Start Date: 08/01/22 Stop Date: 04/22/24 Status: Ordered lisinopril 10 mg oral tablet 10 mg, 1, tablet, By Mouth, Daily, # 90 tablet, Refills 4, Tot. Refills 4, Maintenance, 07/12/22 10:12:00 EDT, Route to Pharmacy Electronically, [facility] #[id number], Partial fill upon patientrequest if the prescription is for a schedule II op... Start Date: 07/12/22 Stop Date: 10/05/23 Status: Ordered NovoLOG FlexPen 100 units/mL injectable solution = 20 units, Subcutaneous Injection, 3 times a day before meals, INJECT 20 UNITS INTO SKIN THREE TIMES DAILY BEFORE A MEAL, # 15 mL, 10 Refills, Maintenance, 08/01/22 16:09:00 EDT, [facility] 169, cm, 08/01/22 14:14:00 EDT, [...] mg, By Mouth, Every 12 hours, for 7 days, # 14 tablet, 0 Refills, Acute 09/19/22 13:19:00 EST, 09/12/22 13:19:00 EST, Tablet, [facility]/pharmacy #[id number], Partial fill upon patient request if the prescription is for a schedule II opioid drug., 16... Start Date: 09/12/22 Stop Date: 09/19/22 Status: Ordered oxyCODONE 5 mg oral tablet 5 mg, Tablet, By Mouth, Every 6 hours, PRN for Pain , Moderate, Routine, 09/11/22 17:44:00 EST Start Date: 09/11/22 Stop Date: 09/18/22 Status: Ordered PARoxetine 40 mg oral tablet 40 mg, 1, tablet, By Mouth, Daily, Refills 0, Maintenance, 01/11/22 9:43:00 EST Start Date: 01/11/22 Status: Ordered Plavix 75 mg oral tablet 75 mg, 1, tablet, By Mouth, Daily, # 30 tablet, Refills 5, Tot. Refills 5, Maintenance, 04/24/22 9:03:00 EDT, Route to Pharmacy Electronically, [facility], Partial fill upon patient request if the prescription is for a schedule II opio... Start Date: 04/24/22 Status: Ordered ProAir HFA 90 mcg/inh inhalation aerosol 1 puffs, Inhalation, Every 4 hours, PRN as needed for wheezing, # 18 Gm, 0 Refills, Maintenance, 04/18/22 9:51:00 EDT, Aerosol, [facility], Partial fill upon patient request if the prescription is for a schedule II opioid drug., 1 puff... Start Date: 04/18/22 Status: Ordered traZODone 300 mg oral tablet 1 tablet = 300 mg, By Mouth, Daily at bedtime Start Date: 03/03/22 Status: Ordered Trulicity Pen 4.5 mg/0.5 mL subcutaneous solution = 0.5 mL, Subcutaneous Injection, Every week, rotate injection sites, # 6 mL, 4 Refills, Maintenance, 07/19/22 10:42:00 EDT, Solution, [facility] #[id number], Partial fill upon patient request if the prescription is for a schedule II opioid drug.... Start Date: 07/19/22 Status: Ordered Ventolin HFA 108 mcg/inh inhalation aerosol with adapter 2 puffs, Inhalation, Every 6 hours, PRN Wheezing/Shortness of Breath, # 8 Gm, 1 Refills, Maintenance, 05/30/22 10:56:00 EDT[facility] fill upon patient request if the prescription is for a schedule II opioid drug., 169, cm,... Start Date: 05/30/22 Status: Ordered Wheel chair Wheel chair, See Instructions, # 1 each, Refills 0, Tot. Refills 0, Maintenance, Dx Diabetic foot ulcer, 09/11/22 16:46:00 EST, Supply Start Date: 09/11/22 Status: Ordered Wheelchair See Instructions, # 1 [...] Obese class II Confirmed Active BHN/CCA/CP- Angle [phone] nursing home active care coordination Confirmed Active Peripheral vascular disease Confirmed Active Umbilical hernia Confirmed Active 1per 2017 and 2019 [facility] notes Results Orders for Microbiology Reports Name Date Anaerobic Culture (ANAEROBIC CULTURE) Fungal Culture, Nonrespiratory (FUNGAL C ULT,NON-RESPIRATORY) 09/11/22 Wound Deep Culture w/ Gram Smear (DEEP W OUND CULTURE) 09/11/22 Microbiology Reports TEST:Anaerobic Culture STATUS:Unauthenticated BODY SITE: SOURCE:SWAB1 COLLECTED DATE/TIME:09/11/22 3:30 PM Anaerobic Culture SPECIMEN DESCRIPTION : SWAB RIGHT SECOND TOE SPECIAL REQUESTS : NONE CULTURE : NO ANAEROBES ISOLATED SO FAR. REPORT STATUS : PRELIMINARY REPORT TEST:Deep Wound Culture STATUS:Unauthenticated BODY SITE: SOURCE:SWAB1 COLLECTED DATE/TIME:09/11/22 3:30 PM Deep Wound Culture SPECIMEN DESCRIPTION : SWAB RIGHT SECOND TOE SPECIAL REQUESTS : NONE GRAM STAIN : 2+ POLYMORPHONUCLEAR LEUKOCYTES 1+ SQ.EPITHELIAL CELLS 3+ GRAM POSITIVE COCCI REPORT STATUS : PRELIMINARY REPORT TEST:Fungal Culture, Non-Respiratory STATUS:Unauthenticated BODY SITE: SOURCE:SWAB1 COLLECTED DATE/TIME:09/11/22 3:30 PM Fungal Culture, Non-Respiratory SPECIMEN DESCRIPTION : SWAB RIGHT SECOND TOE SPECIAL REQUESTS : NONE DIRECT EXAM : NO FUNGAL ELEMENTS OBSERVED REPORT STATUS : PRELIMINARY REPORT Radiology Reports * Exam Date Time Procedure Performing Provider Status 09/11/22 9:15 PM Chest Portable Daniele Borjas; Auth (Ve rified) Notes: (Chest Portable) Reason For Exam: Shortness of Breath RESULT: Chest Portable Chest Portable Reason: Shortness of Breath; Clinical Question(s): Pulmonary Edema COMPARISON: 04/27/2022 FINDINGS: LINES AND TUBES: None. LUNGS AND PLEURA: Prominent bilateral pulmonary opacities throughout the lung frazier. Findings suggestive of pulmonary edema. No pleural effusion. No pneumothorax. HEART, MEDIASTINUM AND BRYCE: Moderate prominence of the cardiac silhouette, unchanged. Normal mediastinal and hilar contour. BONES AND SOFT TISSUES: No acute abnormality. IMPRESSION: Findings suggestive of pulmonary edema. WSN: [id number] Ordering Physician: Della Gonsales Dictated By: Aaron Thorpe MD Dictated Date/Time: 09/11/22 9:27 pm Reviewed By: Aaron Thorpe MD Signed By: Aaron Thorpe MD Signed Date/Time: 09/11/22 9:27 pm Transcribed By: TY Transcribed Date/Time: 09/11/22 9:27 pm Vital Signs Most recent to oldest [Reference Range]: 1 2 3 Oxygen Saturation [94-100 %] 96 % (09/12/22 11:42 AM) 90 % *L* (09/12/22 10:00 AM) 94 % (09/12/22 7:49 AM) Pulse Rate [55-90 bpm] 73 bpm (09/12/22 11:42 AM) 78 bpm (09/12/22 9:12 AM) 85 bpm (09/12/22 7:49 AM) Blood Pressure [90-138/55-84 mm Hg] 151/77mm Hg *H* (09/12/22 11:42 AM) 125/69mm Hg (09/12/22 9:12 AM) 125/69mm Hg (09/12/22 9:12 AM) Respiratory Rate [16-30 br/min] 18 br/min (09/12/22 1:30 PM) 18 br/min (09/12/22 11:42 AM) 18 br/min (09/12/22 7:49 AM) Temperature [96.8-100.4 DegF] 97.6 DegF (09/12/22 11:42 AM) 97.4 DegF (09/12/22 7:49 AM) 98.6 DegF (09/12/22 4:40 AM) Liters per Minute 2 L/min (09/12/22 7:49 AM) 5 L/min (09/12/22 4:40 AM) 5 L/min (09/11/22 11:38 PM) Mode of Delivery (Oxygen) Room air (09/12/22 11:42 AM) Room air (09/12/22 10:00 AM) Nasal cannula (09/12/22 7:49 AM) Blood pressure sites Arm, right (09/12/22 11:42 AM) Arm, right (09/12/22 7:49 AM) Arm, right (09/12/22 4:40 AM) Temperature Route Oral (09/12/22 11:42 AM) Oral (09/12/22 7:49 AM) Axillary (09/12/22 4:40 AM) Dry Weight 113.9 kg (09/11/22 2:01 PM) Dry Weight Obtained Via Standing scale (09/11/22 2:01 PM) Social History Social History Type Response Smoking Status Never (less than 100 in lifetime) entered on: 09/03/19 Sex 1per Hospital Progress note * Juan MOSHER, Castro Carvajal: SIGN Vance Yu: PERFORM, SIGN Vance Yu: SIGN, VERIFY Vance Yu: VERIFY Event Display: Progress Note Hospital Authored Date: Patient: PATRICIA COPPOLA Age: 46 years Sex: Female : 1975 Associated Diagnoses: None Author: Vance Yu Subjective Subjective Last night desat 60s in room air; oevrnight 5L [place]; CXR 09/11-pulm edema, received Lasix 20 IV hx asthma, on 5L NC weaned down to 2 L NC; denies SOB; not homeO2-dependent; resumed inhalers/Duoneb inpt denies fever/chills/N/V/CP/SOB/abd pain pain controlled; tolerating diet Objective Vital Signs Vitals : VITALS 09/12/2022 7:49 EST Temperature 97.4 DegF Temperature Route Oral Pulse Rate 85 bpm Respiratory Rate 18 br/min Systolic Blood Pressure 125 mm Hg Diastolic Blood Pressure 69 mm Hg Blood pressure sites Arm, right Mean Arterial Pressure 88 mm Hg Pulse Pressure 56 mm Hg Oxygen Saturation 94 % Liters per Minute 2 L/min Mode of Delivery (Oxygen) Nasal cannula . Physical exam Patient is: in no acute distress, alert, awake. Cardiac: RRR. Respiratory: CTA. Abdomen: Abdomen is (soft, non-tender, non-distended, +BM 09/11), Bowel Sounds positive. Neurologic: alert & oriented x 3. Skin: RLE +strikethrough, serosang; R2,3 distal toe amp; +edema, interrupted sutures; no active bleeding or purulent discharge; Xeroform over incisions small hole R2 thru-and- thru; Xeroform packing; no discharge/bleeding, R groin soft no hematoma. Vascular Surgical Pulses Right Lower Extremity: Anterior tibial BP, Dorsalis pedis BP, Posterior tibial BP. Results Review 7 Day Results Results Laboratory : LABORATORY 09/12/2022 7:27 EST WBC 8.5 k/mm3 RBC 3.18 m/mm3 L Hgb 9.4 Gm/dL L Hct 30.9 % L MCV 97.2 femtoliters MCH 29.6 pg MCHC 30.4 g/dL L Platelet Count 331 k/mm3 RDW-SD 47.2 femtoliters H MPV 9.8 femtoliters Nucleated RBC (Automated) 0.0 #/100 WBC'S Abs. NRBC 0.0 k/mm3 Abs. Neut 5.8 k/mm3 Abs. Lymph 1.4 k/mm3 Abs. Hamblen 0.8 k/mm3 Abs. Eo 0.3 k/mm3 Abs. Baso 0.0 k/mm3 Neut % 68.8 % Lymph % 16.8 % Hamblen % 9.6 % Eos % 3.9 % Baso % 0.4 % Imm Gran 0.5 % Abs. Imm Gran 0.0 k/mm3 Calcium, Ionized pH Corrected 1.18 mmol/L Assessment Assessment Patricia Coppola is a 46 year old female with PMHX, obesity, DM2, HLD, bipolar, asthma , diabetic foot ulcers on the right first, second, and third toes with peripheral vascular disease; x-rays consistent with osteomyelitis of the first toe amputation site as well as the third toe. Patient admitted 09/11 for planned surgery. Pt is now s/p right leg angiogram, right second and third toe amputations through the proximal phalangeal joint, and right great toe amputation site excisional debridement. Postop complication with respiratory desaturation to 66% on RA with pulmonary edema seen on CXR, did nottake her Lasix preprocedure. Plan - Diabetic diet - DM, hyperglycemia: resume Glargine 30 u BID; Lispro 20 u preprandial; - resp; resume home dose Lasix 20 po mg daily; wean o2 as tolerated ; IS, CPT; resume home inhalers, Duoneb inpt - Multimodal pain control -Tylenol, Oxycodone - A/C: ASA/Plavix -statin/Atorvastatin; HSQ for DVT ppx - ACtivity; OOB, ambulate; needs new shoe Front offloading boot - Monitor R groin /pulses -ABx 24 IV; F/U OR Cx; pt has Rx Doxy at home; resume Doxy if OR cx + -wound care: betadine paint; Xeroform to incisions; pack small hole R2 -medicine consult if unable to get wean off O2 -disp planning; home when off O2 [place] [phone] with any questions or concerns. case discussed with Dr Juan Ty RN, Tamia: PERFORM, SIGN, VERIFY Event Display: Progress Note Hospital Authored Date: Patient: PATRICIA COPPOLA Age: 46 years Sex: Female : 1975 Associated Diagnoses: None Author: Tamia Ty RN Problem Related to Alteration in Tissue Perfusion : Alteration in Tissue Perfusion 09/12/2022 3:00 EST Alteration Tissue Perfusion related to Vascular Procedure, Vascular Surgery Goals & Outcomes: Tissue perfusion Pt will maintain optimal perfusion to vital organs, Pt will resume/maintain adequate peripheral circulation, Pt will experience improved tissue perfusion, Pt will achieve progressive healing of injured area, Pt will be hemodynamically stable, Pt will achieve no rmal/improved/optimal neuro status, Pt will return to baseline respiratory function, Pt will maintain adequate GI function appropriate for pt, Pt will maintain adequate function appropriate for pt, Pt will be discharged without infection, Pt/ S.O. will state understanding of plan of care, Pt/S.O. will verbalize understanding of the D/C plan Interventions: Tissue Perfusion Assess for s/s of infection of lines, drains, incisions, Assess/Monitor activity tolerance, Assess/Monitor cardiac dysrhythmias, Assess/Monitor CMS to affected extremity, Assess/Monitor mental status, Assess/Monitor peripheral pulses & capillary refill, Assess/Monitor presence & degree of edema, Assess/Monitor secretions & drainage for s/s of infection,Assess/Monitor tolerance of enteral feeds, Assess/Monitor vital signs per unit standard & prn, Discuss discharge needs with embedded case manager, Ensure case management or social service consult, Maintain precautions per Infection Control Standards, Monitor blood loss, Monitor Intake & Output, Monitor labs & report variances to provider, Monitor response to fluid replacement, Monitor size & character of hematoma, Elevate limbs, Physical assessment per unit standards, Position for comfort, Provide info on community resources for education, support, Report changes in hemodymamics to MD,Teach pt/caregiver discharge plan & follow up care, Teach pt/caregiver on plan of care, treatment, s/s & meds, Teach pt/caregiver on use of pain scale, Teach Pt/caregiver signs & symptomsof infection BH Goals/Interventions, Tissue Perfusion Yes Tissue Perfusion, Problem Start 09/12/2022 3:14 Reviewed Plan with, Tissue Perfusion Patient Patient Progression, Tissue Perfusion Pt progressing according to plan . Nursing Data Cardiac Data. : Cardiac Data. 09/11/2022 21:00 EST Cardiovascular Symptoms None Nail Bed Color, Fingers [place] Nail Bed Color, Toes [place] Skin Temperature Upper Extremities Warm Heart Rhythm Regular Capillary Refill < 3 seconds Radial Pulse, Left Normal bag filler No Cardiovascular WNL except . Gastrointestinal Data. : Gastrointestinal Data. 09/11/2022 21:00 EST GI WNL Normal Bowel Pattern Daily . Genitourinary Data. : Genitourinary Data. 09/11/2022 21:00 EST WNL . HEENT Data. : HEENT Assessment 09/11/2022 21:00 EST HEENT, Adult WNL . Integumentary Data. : Integumentary Data. 09/11/2022 21:00 EST Skin Color Normal for ethnicity Skin Integrity Not intact Activity Bedfast Mobility Slightly limited Integumentary WNL except . Musculoskeletal Data. : Musculoskeletal Data. 09/11/2022 21:00 EST Musculoskeletal Symptoms None Musculoskeletal Abnormality Amputation Musculoskeletal Abnormality Location Great toe, right, Second toe, right, Third toe, right Musculoskeletal WNL except . Neurological Data. : Neurological Data. 09/11/2022 21:00 EST Neurological Symptoms None Level of Consciousness Lethargy (Modified) Orientated to person, place, time Person, Place, Time, Event Gait Unable to assess 1 - 10 Pain Scale Score 6 Neuro WNL except . The plan for the day was reviewed with the multidisciplinary team. Narrative/Incidental patient arrived on M6 at shift change. patient arrived lethargic, AOx4, Lungs had crackles throughout. Patient desat to 60s when off O2. FARMWORKER ANIMAL, vascular, and respirtatory at bedside. Lasix given. patient on 5 L on [place] NC. Sugars were elevated, 8 units given per order from Covering vascular provider. Incentive spirometer encouraged. Sleeping throughout the night, no reports of SOB or difficulty breathing. Right foot dressing saturated, covering vascular provider changed dressing @0130. See CIS for full assessment. All safety measures in place, call yee within reach. * Cha Munoz RN: PERFORM, SIGN, VERIFY Event Display: Progress Note Hospital Authored Date: Patient: PATRICIA COPPOLA Age: 46 years Sex: Female : 1975 Associated Diagnoses: None Author: Cha Munoz RN Findings Narrative/Incidental Pt arrived from PACU, awake and alert oriented X3. Denies any CP, dizziness or surgical pain. Arrived on 4L via shovel mask unable to wean off o2, desats to 67% on room air, crackles heard bilaterally- paged to Nicole Kennedy and Miguel A Gonsales MD- awaiting response, and respiratory paged, report passed on to Tamia hernández RN, pt does not appear to be in distress, per family memeber this happenedlast time she had surgery. . R. groin dsd c/d/i. R. foot dsg w/ mild serosang staining no change since arrived to unit. Pt oriented to room and call yee. See biophysical and CIS for full assessment.. Note * Mai Eldridge: PERFORM Event Display: Discharge/Transfer Note Hospital Authored Date: Nursing Discharge Note Entered On: 09/12/2022 16:01 EST Performed On: 09/12/2022 16:01 EST by Mai Eldridge Nursing Discharge Note 2 Discharge Time : 09/12/2022 14:45 EST Discharge Level of Care at Discharge : Homehealth/VNA Discharge VNA/Hospice/Home Care([id number]) : [facility] Patient Left Unit Via : Wheelchair Patient Accompanied Off Unit with : Other: transport DC Instructions Provided & Signed by Pt : Yes Patient Understands D/C Instructions : Yes Patient Instructions Discharge Signed : Yes Discharge Comments : patient has no concerns about discharge Did Pt have Specialty Bed or Wound Vac : No Mai Eldridge - 09/12/2022 16:01 EST * Vance Yu: MODIFY, SIGN, VERIFY, PERFORM Event Display: Discharge/Transfer Note Hospital Authored Date: Patient: PATRICIA COPPOLA Age: 46 years Sex: Female : 1975 Associated Diagnoses: None Author: Vance Yu Discharge Information Admission Date: 09/11/2022 Discharge Date 09/12/2022 Primary Care Provider: Allegra Aguayo MD Principal Discharge Diagnosis PAD (peripheral artery disease): Present on admission - yes. Secondary Discharge Diagnoses Bipolar: Present on admission - yes. Osteomyelitis of right foot: Present on admission - yes. Diabetic peripheral neuropathy: Present on admission - yes. Diabetic retinopathy - next due 8-2020: Present on admission - yes. Dyslipidemia: Present on admission - yes. Hypertension: Present on admission - yes. Peripheral vascular disease: Present on admission - yes. Medications MEDICATION LIST (Selected) Prescriptions Prescribed 4 x 4 sterile gauze: 4 x 4 sterile gauze, See Instructions, # 1 Unknown, Refills 0, Tot. Refills 0,Maintenance, please dispense 1 box of 4x4 sterile gauze for right toe infection ICD 10 L03.039, length of use 2 months, 07/19/22 12:40:00 EDT, Supply Alcohol Wipes: See Instructions, # 100 each, Refills 5, Tot. Refills 5, Maintenance, dx DM, on insulin, 08/14/22 12:21:00 EDT, Supply, 169, cm, 08/09/22 14:26:00 EDT, Height, 105.22, kg, 08/09/22 14:26:00 EDT, Dry Weight Blood Pressure Monitor: See Instructions, # 1 each, Maintenance, DX HTN, ICD E11.9, 01/11/22 9:28:00 EST, Supply Colace sodium 100 mg oral capsule: 100 mg, 1, capsule, By Mouth, 2 times a day, PRN, # 60 capsule, Refills 0, Tot. Refills 0, Maintenance, for constipation, 03/16/22 14:30:00 EDT, [facility] upon patient request if the pre... D/armando Rx: D/armando Rx, See Instructions, # 1 capsule, Refills 0, Tot. Refills 0, Maintenance, Januvia has been discontinued, 09/01/22 10:09:00 EDT, Supply, 169, cm, 08/09/22 14:26:00 EDT, Height, 105.22, kg, 08/09/22 14:26:00 EDT, Dry Weight Darco front offloading shoe: Darco front offloading shoe, See Instructions, # 1 each, Refills 0, Tot. Refills 0, Maintenance, dx: dfu, 03/14/22 10:48:00 EDT, Compound Freestyle Lite Test Strips: See Instructions, # 100 each, Refills 3, Tot. Refills 3, Maintenance, USE TO TEST 4 TIMES DAILY, 08/14/22 12:20:00 EDT, Supply, 169, cm, 08/09/22 14:26:00 EDT, Height, 105.22, kg, 08/09/22 14:26:00 EDT, Dry Weight Insulin Syringe, BD Ultra-Fine 0.5 cc 31 G x 8 mm (5/16in): See Instructions, # 100 each, Refills 3, Tot. Refills 3, Maintenance, use as directed for Type 2 Diabetes Mellitus to admisiter insulin twotimes a day. Dx; E11.9, 03/09/22 14:24:00 EDT, Compound, 169, cm, 03/09/22 13:46:00 EDT, Height, 104.9, kg,... Lantus Solostar Pen 100 units/mL subcutaneous solution: = 30 units, Subcutaneous Injection, 2 timesa day, # 15 mL, 6 Refills, Soft Stop, 08/01/22 16:09:00 EDT, Solution, [facility], Partial fill upon patient request if the prescription is for a schedule II opioid drug., 169, cm, 08/01/22 1... NovoLOG FlexPen 100 units/mL injectable solution: = 20 units, Subcutaneous Injection, 3 times a daybefore meals, INJECT 20 UNITS INTO SKIN THREE TIMES DAILY BEFORE A MEAL, # 15 mL, 10 Refills, Maintenance, 08/01/22 16:09:00 EDT, Fall [facility] 169, cm, 08/01/22 14:14:00 EDT, Height, 104... Offloading boot: Offloading boot, See Instructions, # 1 each, Refills 0, Tot. Refills 0, Maintenance, Please fit patient Diagnosis: Diabetic foot infection ICD code E11. 621, 07/21/22 8:08:00 EDT, Supply Plavix 75 mg oral tablet: 75 mg, 1, tablet, By Mouth, Daily, # 30 tablet, Refills 5, Tot. Refills 5, Maintenance, 04/24/22 9:03:00 EDT, Route to Pharmacy Electronically, [facility], Partial fill upon patient request if the prescription is for a schedule II opio... ProAir HFA 90 mcg/inh inhalation aerosol: 1 puffs, Inhalation, Every 4 hours, PRN as needed for wheezing, # 18 Gm, 0 Refills, Maintenance, 04/18/22 9:51:00 EDT, Aerosol, [facility], Partial fill upon patient request if the prescription is for a schedule II opioid drug., 1 puff... Trulicity Pen 4.5 mg/0.5 mL subcutaneous solution: = 0.5 mL, Subcutaneous Injection, Every week, rotate injection sites, # 6 mL, 4 Refills, Maintenance, 07/19/22 10:42:00 EDT, Solution, [facility] #[id number], Partial fill upon patient request if the prescription is for a schedule II opioid drug.... Ventolin HFA 108 mcg/inh inhalation aerosol with adapter: 2 puffs, Inhalation, Every 6 hours, PRN Wheezing/Shortness of Breath, # 8 Gm, 1 Refills, Maintenance, 05/30/22 10:56:00 EDT, [facility], Partial fill upon patient request if the prescription is for a schedule II opioid drug.,169, cm,... Wheel chair: Wheel chair, See Instructions, # 1 each, Refills 0, Tot. Refills 0, Maintenance, Dx Diabetic foot ulcer, 09/11/22 16:46:00 EST, Supply Wheelchair: See Instructions, # 1 each, Maintenance, please suppy wheel chair to patient to get around and keep weight off leg, 09/07/22 9:16:00 EDT, Supply, 169, cm, 08/09/22 14:26:00 EDT, Height, 105.22, kg, 08/09/22 14:26:00 EDT, Dry Weight acetaminophen 325 mg oral tablet: 650 mg, 2, tablet, By Mouth, Every 4 hours, PRN, for 30 days, # 360 tablet, Refills 0, Tot. Refills 0, Acute 10/12/22 13:18:00 EST, Pain , Mild, 09/12/22 13:18:00 EST, Route to Pharmacy Electronically, [facility]/pharmacy #[id number], Partial fill upon patient req... amLODIPine 10 mg oral tablet: 10 mg, 1, tablet, By Mouth, Daily, # 30 tablet, Refills 5, Tot. Refills 5, Maintenance, 04/24/22 9:05:00 EDT, Route to Pharmacy Electronically, [facility]., Partial fill upon patient request if the prescription is for a schedule II opio... ammonium lactate 5% topical lotion: 1 application, Topically, 2 times a day, # 240 Gm, 0 Refills, Maintenance, 05/01/22 12:34:00 EDT, [facility]otion, [id number] Partial fill upon patient request if the prescription is for a schedule II opioid drug., 1 application Topically 2 times a da... aspirin 81 mg oral delayed release tablet: 81 mg, By Mouth, Daily, # 30 tablet, Refills 5, Tot. Refills 5, Maintenance, 05/13/22 16:40:00 EDT, Route to Pharmacy Electronically, [facility]., Partial fill upon patient request if the prescription is for a schedule II opioid drug.,... atorvastatin 40 mg oral tablet: 1 tablet = 40 mg, By Mouth, Daily, # 90 tablet, 2 Refills, Maintenance, 04/24/22 9:41:00 EDT, Tablet, [facility], Partial fill upon patient request if the prescription is for a schedule II opioid drug., 170, cm, 04/24/22 8:36:00 EDT, H... carvedilol 25 mg oral tablet: 25 mg, 1, tablet, By Mouth, 2 times a day, # 60 tablet, Refills 5, Tot. Refills 5, Maintenance, 07/26/22 16:13:00 EDT, [id number], Partial fill upon patient request if the prescription is for a schedule II opi... doxycycline hyclate 100 mg oral tablet: 1 tablet = 100 mg, By Mouth, 2 times a day, for 10 days, # 20 tablet, 0 Refills, Acute 09/16/22 11:27:00 EST, 09/06/22 11:27:00 EDT, Tablet, [id number] Partial fill upon patient request if the prescription is for a schedule II opioid drug., 1... furosemide 20 mg oral tablet: 20 mg, 1, tablet, By Mouth, Daily, # 30 tablet, Refills 5, Tot. Refills 5, Maintenance, 07/07/22 15:52:00 EDT, Route to Pharmacy Electronically, [facility], Partial fill upon patient request if the prescription is for a schedule II opi... lisinopril 10 mg oral tablet: 10 mg, 1, tablet, By Mouth, Daily, # 90 tablet, Refills 4, Tot. Refills 4, Maintenance, 07/12/22 10:12:00 EDT, [id number], Partial fill upon patient request if the prescription is for a schedule II op... oxyCODONE 10 mg oral tablet: 1 tablet = 10 mg, By Mouth, Every 12 hours, for 7 days, # 14 tablet, 0Refills, Acute 09/19/22 13:19:00 EST, 09/12/22 13:19:00 EST, Tablet, [facility]/pharmacy #[id number], Partial fill upon patient request if the prescription is for a schedule II opioid drug., 16... Documented Medications Documented PARoxetine 40 mg oral tablet: 40 mg, 1, tablet, By Mouth, Daily, Refills 0, Maintenance, 01/11/22 9:43:00 EST traZODone 300 mg oral tablet: 1 tablet = 300 mg, By Mouth, Daily at bedtime. Chief Complaint/Reason for Admission non-healing diabetic foot ulcers, Right Aware of diagnosis: patient. Procedures Procedure Date: 09/11/2022. Preoperative Diagnosis: 1. Osteomyelitis right great toe, second toe and third toe 2. Diabetic ulcers of right great, second, and third toes 3. Insulin dependent diabetes mellitus 4. Uncontrolled diabetes mellitus 5. Peripheral vascular disease 6. Neuropathy. Postoperative Diagnosis: Same as Preoperative Diagnosis. Procedure Performed: 1. Right leg angiogram 2. Right second and third toe amputations through the proximal phalangeal joint 3. Right great toe amputation site excisional debridement - 4 x 3 cm with 2 cm of depth to include skin, subcutaneous fatty tissues, muscle, fascia, and bone. Surgeon: Victor Hugo MOSHER, Aditi Kilgore. Anesthesia Type: General. Indication: This patient is a 46-year-old female with insulin-dependent diabetes mellitus, peripheral vascular disease, and diabetic foot ulcers with associated osteomyelitis who is coming in today operating room today for interventio. Allergies Allergic Reactions (All) Severity Not Documented Ibuprofen- Abd pain. Morphine- Vomiting and itchy. TraMADol- Itchy, hives. Canceled/Inactive Reactions (All) NKA Discharge condition: good Compared to admission: improved Code status: Full Hospital Course Hospital course Patricia Coppola is a 46 year old female with PMHX, obesity, DM2, HLD, bipolar, asthma , diabetic foot ulcers on the right first, second, and third toes with peripheral vascular disease; x-rays consistent with osteomyelitis of the first toe amputation site as well as the third toe. Patient admitted 09/11 for planned surgery. Pt is now s/p right leg angiogram, right second and third toe amputations through the proximal phalangeal joint, and right great toe amputation site excisional debridement on 09/11/[address] Gay, no intraop complication. Postop complication with respiratory desaturation to 66% on RA with pulmonary edema seen on CXR, did not take her Lasix preprocedure, improved after resuming Lasix, off oxygen. Pt deemed medically ready for discharge home+ VNA on 09/12/22.. Physical exam Patient is: in no acute distress, alert, awake. Cardiac: RRR. Respiratory: CTA. Abdomen: Abdomen is (soft, non-tender, non-distended, +BM 09/11), Bowel Sounds positive. tolerating diet Neurologic: alert & oriented x 3. Skin: R2,3 distal toe amp; +edema, interrupted sutures; no active bleeding or purulent discharge; Xeroform over incisions small hole R2 thru-and- thru; Xeroform packing; no discharge/bleeding, R groin soft no hematoma. Vascular Surgical Pulses Right Lower Extremity: Anterior tibial BP, Dorsalis pedis BP, Posterior tibial BP. Diet: Diabetic diet DM: resume Glargine 30 u BID; Lispro 20 u preprandial; resp; resume home dose Lasix 20 po mg daily, resume inhalers Multimodal pain control -Tylenol, Oxycodone 10 mg po BID Anticoagulation plan: ASA 81 mg +Plavix 75 mg daily Continue statin/Atorvastatin Activity; postop Front offloading boot antibiotic: 24 hrs IV abx completed; resume Doxy 100 mg po BID to complete 10 days; F/U OR cx outpt wound care: betadine paint; Xeroform to incisions; pack small hole R2;DSD Kerlix; Rx supplies given Postoperative Events Unexpected Return to the OR: no. Bleeding required re-operation: no. Significant Results Results: Laboratory : LABORATORY 09/12/2022 7:27 EST WBC 8.5 k/mm3 RBC 3.18 m/mm3 L Hgb 9.4 Gm/dL L Hct 30.9 % L MCV 97.2 femtoliters MCH 29.6 pg MCHC 30.4 g/dL L Platelet Count 331 k/mm3 RDW-SD 47.2 femtoliters H MPV 9.8 femtoliters Nucleated RBC (Automated) 0.0 #/100 WBC'S Abs. NRBC 0.0 k/mm3 Abs. Neut 5.8 k/mm3 Abs. Lymph 1.4 k/mm3 Abs. Hamblen 0.8 k/mm3 Abs. Eo 0.3 k/mm3 Abs. Baso 0.0 k/mm3 Neut % 68.8 % Lymph % 16.8 % Hamblen % 9.6 % Eos % 3.9 % Baso % 0.4 % Imm Gran 0.5 % Abs. Imm Gran 0.0 k/mm3 Sodium 138 mmol/L Potassium 4.6 mmol/L Chloride 103 mmol/L Bicarbonate Level 28 mmol/L Anion Gap 7 BUN 24 mg/dL H Creatinine-Blood 1.4 mg/dL H Estimated GFR Creatinine 47 ML/MIN/1.73 M2 Calcium, Ionized pH Corrected 1.18 mmol/L Phosphorus 4.0 mg/dL Magnesium 1.7 mg/dL . Prescription Given this visit:Prescriptions Acetaminophen (acetaminophen 325 mg oral tablet) 2 tablet = 650 mg, By Mouth, Every 4 hours, # 360 tablet, 0 Refills, [facility]/pharmacy #[id number], [address] [place] [address] [phone] Next Dose: Oxycodone (oxyCODONE 10 mg oral tablet) 1 tablet = 10 mg, By Mouth, Every 12 hours, # 14 tablet, 0 Refills, [facility]/pharmacy #[id number], [address] [place] [address] [phone] Next Dose: Patient Instructions Given:No qualifying data available Education Given:BVS-Wound Care EVAR (Groin Punctures) BVS-Toe and partial foot Amp BVS-Special Instructions Patient Follow-up:Added Follow Up Time Frame Comments Aditi Gay 2 to 3 weeks office will call you for appointment Allegra Aguayo Only if Needed. Discharge Plan Diet/Activity/Patient Education/Follow Up Follow Up with: Allegra Aguayo , only if needed; Aditi Gay Within 2 to 3 weeks office will callyou for appointment. Discharge Disposition Discharge: home with VNA. Home Health Face to Face I certify that this patient is under my care and that I or an allowed non- physician practitioner working with me, had a [id number] encounter with the patient on this date: 09/12/2022. The encounter with the patient was in whole, or in part, for the following medical condition, whichis the primary reason for home health care: Osteomyelitis of right foot, PAD (peripheral artery disease). Nursing: Medication management (reconciliation, teaching), Chronic disease management, Wound care and treatment (betadine paint; xeroform to incisions, DSD /Kerlix roll daily, till completely healed). Homebound due to: limited distance ambulation due to recent cardiac surgery, limited to physician appointment visits . Physician Signature: Victor Hugo MOSHER, Aditi Kilgore . Therapies Smoking Status: Patient greater than or equal to 12 years Patient has not smoked in last 12 months. * Myrna Irwin RN: PERFORM, SIGN, VERIFY Event Display: Case Management Discharge Plan Authored Date: [id number] Patient: PATRICIA COPPOLA Age: 46 years Sex: Female : 1975 Associated Diagnoses: None Author: Myrna Irwin RN Discharge Plan Case Management Discharge Plan : Case Management Discharge Plan Data 09/12/2022 14:08 EST Discharge Level of Care at Discharge Homehealth/VNA Discharge VNA/Hospice/Home Care [facility] Discharge Transportation Arranged car Discharge Arranged Transport Date/Time 09/12/2022 14:00 Mode of Transportation Arranged Other Name of Agency #1 [facility] Service Categories #1 Physical Therapy, Wheelchair, Wound Care Service Comments #1 [facility] will contact you for a scheduled visit if you do not hear from them please call * Mai Eldridge: PERFORM Event Display: Patient Education/Instruction Authored Date: [id number] Inpatient Adult Discharge Instructions [address] [address] Name: PATRICIA COPPOLA : 1975 Visit: 09/11/2022 12:18:00 Current Date: 09/12/2022 14:01 Account: [id number] Inpatient Adult Discharge Instructions We would like to thank you for allowing us to assist you with your healthcare needs. The following includes patient education materials and information regarding your injury/illness. Our entire staffstrives to provide an excellent experience for our patients and their families. PLEASE ENSURE YOU FOLLOW-UP PER THE INSTRUCTIONS BELOW! ?? YOUR OPINION IS IMPORTANT TO US! Please complete the survey you may receive by mail or email. Your feedback will be used to make improvements to the healthcare experiences of our patients and their families. Surveys are administered by [employer] ?? If further treatment with your primary care physician or another doctor is recommended, it is important for you to keep the appointment. Call your primary care physician or return to the Emergency Department immediately if your condition worsens, fails to improve, or new symptoms develop. If you need to find a doctor, you can call [facility] [employer] for a referral at [phone] or toll free at [phone] or log in to [email or web address].. ?? You can view and manage your care through the patient portal or by using a health care hernan of your choosing. [employer] is a website that allows you to securely view your medical information including your hospital discharge summary, office visit summaries, medications and follow-up visits. You can also request appointments, renew medications, and request access to your medical information using a health care hernan of your choosing, or just ask a question. You can enroll at [email or web address] or register during your next office visit. You have been discharged from [facility], Patient Care Unit: M6. If you have any questions regarding these instructions after you leave, please call us and we will be happy to assist you. [facility] Your Care Team Attending Physician Victor Hugo MOSHER, Aditi Kilgore Consulting Providers Van DODiana MD, Aditi Kilgore Discharging Providers Charles DONIS, Libby Valente Reason for Admission NONHEAL WND ULCER RLE ANGIO POSS AMP 23HR DST 1230 Your Diagnosis PAD (peripheral artery disease) Peripheral vascular disease Hypertension Dyslipidemia Diabetic retinopathy - next due Diabetic peripheral neuropathy Bipolar Osteomyelitis of right foot Tests Performed Below is a partial list of the tests performed during your hospitalization. You may have had other tests and procedures not included in this list. Please discuss all test results with your provider. BUN GLUCOSE POC CXR Portable Primary Care Provider Olivier MOSHER, Allegra Advance Directive Health Care Proxy on File No Patient refuses to discuss No qualifying data available. Discharge Vitals Temperature: 97.6 DegF Pulse Rate: 73 bpm Respiratory Rate: 18 br/min Systolic Blood Pressure:??151 mm Hg??High Diastolic Blood Pressure: 77 mm Hg Oxygen Saturation: 96 % Studies Pending All tests and labs ordered during this hospital stay have been completed unless listed below. Please discuss all pending results with your provider listed above in these instructions. ?? Anaerobic Culture CBC w/ Differential Creatinine Electrolytes Fungal Culture, Nonrespiratory (FUNGAL CULT,NON-RESPIRATORY) Ionized Calcium Magnesium Level Pathology Tissue Request () Phosphorus Level Wound Deep Culture w/ Gram Smear (DEEP WOUND CULTURE) What to do next Instructions From Your Doctor Discharge Orders Scheduled Follow-Up Appointments Sunday 11:00 AM EST ?? Where: [place] [address]- You Need to Schedule the Following Appointments Follow Up with??Aditi Gay When??Within 2 to 3 weeks Why: office will call you for appointment Follow Up with??Allegra Aguayo When??Only if needed Discharge Medications DAMEON COPPOLAA :1975 Visit Date:09/11/2022 Medications: Please continue your medications until treatment is completed or stopped by your provider. Medications not listed below should be discontinued. Discuss any questions related to medications with your provider. What How Much When Why Instructions Next Dose New Oxycodone (oxyCODONE 10 mg oral tablet) 1 tab(s) Oral Every 12 hours Duration: 7 Days Pickup at [facility]/pharmacy #[id number] 11/9 AM Changed Acetaminophen (acetaminophen 325 mg oral tablet) 2 tab(s) Oral Every 4 hours as needed for Pain , Mild Duration: 30 Days Pickup at [facility]/pharmacy #[id number] 09/12 6PM Changed Durable Medical Equipment (4 x 4 sterile gauze) See instructions please dispense 1 box of 4x4 sterile gauze for right toe infection ICD 10 L03.039, length of use 2 months ?? Changed Durable Medical Equipment (Alcohol Wipes) See instructions dx DM, on insulin ?? Changed Durable Medical Equipment (Blood Pressure Monitor) See instructions DX HTN, ICD E11.9 ?? Changed Durable Medical Equipment (Darco front offloading shoe) See instructions Diabetic ulcer of right foot dx: dfu ?? Changed Durable Medical Equipment (Freestyle Lite Test Strips) See instructions Duration: 30 Days USE TO TEST 4 TIMES DAILY ?? Changed Durable Medical Equipment (Insulin Syringe, BD Ultra-Fine 0.5 cc 31 G x 8 mm (5/ 16in)) Seeinstructions Duration: 30 Days use as directed for Type 2 Diabetes Mellitus to admisiter insulin two ??times a day. Dx; E11.9 ?? Changed Durable Medical Equipment (Offloading boot) See instructions Please fit patient Diagnosis: Diabetic foot infection ?? ICD code E11. 621 ?? Changed Durable Medical Equipment (Wheel chair) See instructions Diabetic foot ulcer Dx Diabetic foot ulcer ?? Changed Durable Medical Equipment (Wheelchair) See instructions please suppy wheel chair to patient to get around and keep weight off leg ?? Unchanged Albuterol (ProAir HFA 90 mcg/ inh inhalation aerosol) 1 puff(s) Inhalation Every 4 hours as needed for as needed for wheezing Unchanged Albuterol (Ventolin HFA 108 mcg/ inh inhalation aerosol with adapter) 2 puff(s) Inhalation Every 6 hours as needed for Wheezing/Shortness of Breath Unchanged Amlodipine (amLODIPine 10 mg oral tablet) 1 tab(s) Oral Daily 09/13 Unchanged Ammonium Lactate 12% (ammonium lactate 5% topical lotion) 1 hernan Topically Twice a day Duration: 30 Days Unchanged Aspirin (aspirin 81 mg oral delayed release tablet) 81 Milligram Oral Daily Duration: 30 Days 09/13 Unchanged Atorvastatin (atorvastatin 40 mg oral tablet) 1 tab(s) Oral Daily 09/13 Unchanged Carvedilol (carvedilol 25 mg oral tablet) 1 tab(s) Oral Twice a day Duration: 30 Days 09/12 PM Unchanged Clopidogrel (Plavix 75 mg oral tablet) 1 tab(s) Oral Daily 09/13 Unchanged Docusate (Colace sodium 100 mg oral capsule) 1 capsule Oral Twice a day as needed for for constipation Unchanged Doxycycline (doxycycline hyclate 100 mg oral tablet) 1 tab(s) Oral Twice a day Duration: 10 Days 09/12 PM Unchanged dulaglutide (Trulicity Pen 4.5 mg/ 0.5 mL subcutaneous solution) 0.5 Milliliter Subcutaneous Injection Every week rotate injection sites ?? Unchanged Furosemide (furosemide 20 mg oral tablet) 1 tab(s) Oral Daily 09/13 Unchanged Insulin Aspart (NovoLOG FlexPen 100 units/ mL injectable solution) 20 unit(s) Subcutaneous Injection 3 times a day before meals Duration: 90 Days INJECT 20 UNITS INTO SKIN THREE TIMES DAILY BEFORE A MEAL ?? 09/12 PM Unchanged Insulin Glargine (Lantus Solostar Pen 100 units/ mL subcutaneous solution) 30 unit(s) Subcutaneous Injection Twice a day Duration: 90 Days 09/12 Unchanged Lisinopril (lisinopril 10 mg oral tablet) 1 tab(s) Oral Daily Duration: 90 Days 09/13 Unchanged Miscellaneous Rx (D/ armando Rx) See instructions Januvia has been discontinued ?? Unchanged Paroxetine (PARoxetine 40 mg oral tablet) 1 tab(s) Oral Daily 09/13 Unchanged Trazodone (traZODone 300 mg oral tablet) 1 tab(s) Oral Daily at Bedtime 09/12 Pharmacy Information [facility]/pharmacy #[id number]: [address], [place] [phone] ?? What How Much When Why Comments Stop Taking Collagenase Topical (Santyl Topical Oint) 1 applicator Topically Daily Stop Taking silver topical (silver topical gel) See instructions Diabetic foot ulcer Topically Daily cover with appropriate dressing after application clean wound prior to application ?? Test Results Below is a partial list of the most recent Laboratory test results done prior to this discharge. You may have had other tests and procedures not included in this list. Please discuss all test resultswith your provider. BUN (09/12/2022) ???BUN - 24 mg/dL GLUCOSE POC (09/12/2022) ???Glucose, POC - 390 mg/dL Allergies (NKA means No Known Allergies) ibuprofen??(ABD PAIN) morphine??(Vomiting and itchy) traMADol??(Itchy, Hives) Problems Active Problems??(16) Abdominal pain?? Storey's cyst of knee?? BHN/CCA/CP- [facility] [phone] nursing home active care coordination?? Bipolar?? Cholecystectomy?? Diabetes mellitus?? Diabetic peripheral neuropathy?? Diabetic retinopathy - next due -2019?? Dyslipidemia?? Hypertension?? Microalbuminuria?? Morbid obesity?? Obese class II?? Peripheral vascular disease?? Reading difficulty?? Umbilical hernia?? Education Materials Below is the list of Educational Leaflet Providered with your Discharge Instructions. Managing Pain After Amputation Surgery?? Your Amputation Surgery?? Understanding Type 2 Diabetes?? Managing??Type 2 Diabetes?? BVS-Wound Care EVAR (Groin Punctures)?? BVS-Toe and ??partial foot Amp?? BVS-Special Instructions?? Valuables and Belongings I fully understand and agree that [facility] accepts no responsibility for all my personal property including clothing, toilet articles, radios, jewelry, dentures, hearing aids, rings, money, or any other property that is in my possession or is brought to me after admission. I understand certain valuables may be placed in a hospital safe for a short period of time. I understand that the hospital is not liable for loss or damage due to accident, fire, or other natural occurrence while said property is in the safe. I accept full responsibility for any personal property that I keep with me, and will not hold the hospital responsible in case of loss or disappearance. I acknowledge that i have been encouraged to send valuables and belongings home. ?? Review of Valuable and Belonging List: With patient, With witness Disposition of Belongings: Sent home with patient/family Possessions released to: Mikey Bauman Date for Pt to Sign Valuables/Belongings: 09/11/22 14:06:00 ?? Valuables & Belongings ?? Clothes Electronic devices Jewelry Monetary Items Personal devices Miscellaneous Medications (Valuables) Valuables at Bedside Pants, Shirt, Shoes, Undergarments Cell phone ?? Wallet Other: walking boot Other: Bag ?? Valuables Sent Home ? Valuables Sent to Security ? Other Discharge Information ? Pulmonary Rehab Status?? Pulmonary Rehab Discharge Status?? Respiratory Rate: 18 br/min ? Common Emergency Awareness Tips IS IT A STROKE? Act FAST and Check for these signs: FACE Does the face look uneven? ARM Does one arm drift down? SPEECH Does their speech sound strange? TIME Call at any sign of stroke ?? Heart Attack Signs Chest discomfort: Most heart attacks involve discomfort in the center of the chest and lasts more than a few minutes, or goes away and comes back. It can feel like uncomfortable pressure, squeezing, fullness or pain. Discomfort in upper body: Symptoms can include pain or discomfort in one or both arms, back, neck, jaw or stomach. Shortness of breath: With or without discomfort. Other signs: Breaking out in a cold sweat, nausea, or lightheaded. Remember, MINUTES DO MATTER. If you experience any of these heart attack warning signs, call to get immediate medical attention! ?? Smoking can increase your chances of developing chronic health problems and can cause harmful effects to other family members in your house. If you smoke, you are strongly encouraged to quit. Please call [facility] [address] [facility] at [phone] or [phone] ([phone]) or log in to [email or web address] for referrals to smoking cessation programs. ?? The National Suicide Prevention Hotline is available 28/05 if you or someone you know needs to find a reason to keep living. By calling 2-250-189-Nu-Pulse (6126) you'll be connected to a skilled, trained counselor at a crisis center in your area. INPATIENT DISCHARGE INSTRUCTIONS SIGNATURE PAGE PATRICIA COPPOLA Location:[facility] Registration Date and Time:09/11/2022 12:18 EST Primary Care Physician: Olivier MOSHER, Allegra, PATRICIA SOLIS, have received the above patient education materials/instructions and have verbalized understanding. If ambulance or transport services are being used I further acknowledge being given a choice of service. ?? If you need to contact me, please call me at this number: . Patient/Supervisor Data Processing Name: Patient/Supervisor Data Processing Signature: Relationship to Patient: Witness Name/Signature: Date: * Vance Yu: PERFORM, SIGN, VERIFY Event Display: Patient Education Handout Authored Date: [id number] * Mai Eldridge: PERFORM Event Display: Patient Education Leaflets Authored Date: [id number] Managing Pain After Amputation Surgery ?? 87260 Managing Pain After Amputation Surgery No matter what kind of surgery you have, pain is always a concern. As with any surgery, pain after amputation can be controlled. This can help you stay more comfortable.??People react to pain in different ways. So learn how to describe your pain to your healthcare team. This means explaining where the pain is, how it feels, and how bad it is. This lets the healthcare team know how best to treat your pain. Types of residual limb pain Pain in your residual limb can be coming from different places. The following are the most common sources of limb pain after amputation: ??? Skin pain. Your skin??can be very sensitive after amputation. Pain from your skin can feel sharp or irritating. ??? Nerve??pain. This can range from tingling to feeling like an electric shock. The source of nerve pain may be a neuroma. A neuroma occurs??whenthe ends of cut nerves grow into a painful ball under the skin. ??? Muscle??pain. This can feel like aching and cramping. ??? Bone??pain. This??can occur if the end of the bone presses against the socket of your prosthesis. It may cause deep or sharp pain. ??? Phantom pain. This??is a pain felt in the missing limb after amputation and is a real pain thought to originate in the brain. ?? Explaining your pain Pain relief plays a big part in your recovery. So be honest when a healthcare provider asks about your degree of pain. They may ask you to describe your level of pain.??On a scale of 0 to 10 (where 0means no pain, and 10 is the worst pain), how severe is the pain? Also describe??the type of pain. Is it aching, burning, sharp, twisting, or dull? Or does it feel like an electric shock? Tell them how often the pain is happening and if it is??linked to certain activities. ?? Treating pain Your healthcare provider may need to try different medicines??or dosages. This can help find the most effective way to treat your pain. The most common pain medicines??used after surgery are opioids (narcotics). Opioids block pain signals on their way to the brain. This means they can control even severe pain. Nonsteroidal anti-inflammatory drugs (NSAIDs) may also be used. Like opioids, NSAIDs block pain signals on their way to the brain. Your healthcare provider may also try antidepressants oranticonvulsant medicines. They are often used to treat depression and seizures. But they have also proven effective at relieving pain related to amputation. Always ask your healthcare provider about possible side effects of the medicines you may be prescribed. These may include drowsiness, constipation, and becoming dependent??on the medicine. There are other treatments??your provider may recommend if medicines??alone??don't help control your pain. Here are examples of other treatments that maybe effective: ??? Acupuncture ??? TENS (transcutaneous electrical nerve stimulation) ??? Biofeedback ??? Massage therapy ??? Hypnosis ??? Meditation ?? The pain is telling you something! Pain is your body???s way of pointing out a problem. So don???t try to ???tough it out.?? If your pain is not lessening after treatment, say so. Don???t act brave or worry about being a pest. Medicines??and other treatments can be adjusted to meet your needs. Remember that the goal of amputation is to help restore function. Pain can be a barrier to your recovery. Finding what works for you is what really matters. Work with your amputation team to resolve pain issues as they occur during your recovery. ?? Last Reviewed Date: 2021 ?? 4829-2649 [employer]. All rights reserved. This information is not intended as a substitute for professional medical care. Always follow your healthcare professional's instructions. ?? * Mai Eldridge: PERFORM Event Display: Patient Education Leaflets Authored Date: [id number] Your Amputation Surgery ?? 02249 Your Amputation Surgery Amputation is a surgery to remove a limb or part of a limb. It's done when tissue in the limb is diseased or damaged and can???t be healed. The surgeon saves as much of your??limb as possible. This may include joints, such as the knee. But you may not know before the surgery how much of the limb will remain.??Amputation is meant to restore function. Removing your diseased or damaged limb can improve your health. Common causes of amputation include peripheral artery disease that causes poor blood supply to an area,??injury, diabetes, infection, and cancer. Your healthcare provider and team will work with you to set up a treatment plan. Take an active role in your care and ask questions. Ask your healthcare team about anything that isn't clear to you. Here are some questions to ask: ??? How will my pain be managed? How soon will I be able to stand after surgery? Will I getan artificial limb (prothesis)? Where can I find support after my amputation? When will I start therapy after surgery? When will I be able to go home? During the surgery You will most likely??get either general or a local anesthesia and be asleep during the surgery. The surgeon divides damaged tissue from healthy tissue. This includes skin, muscle, bone, blood vessels, and nerves. Then the surgeon removes the damaged part of the limb. The remaining nerves are cut short and allowed to pull back into the healthy tissue. This protects and cushions them. The end of the cut bone is trimmed and the edges are smoothed for comfort. A flap of healthy muscle and skin is left behind when the damaged tissue is removed. The flap is brought snugly over the bone to cover the end of the amputated limb. If there isn???t enough tissue in the flap, the surgeon takes skin or tissue from some other part of the body. The flap is then stitched or stapled in place. The wound maybe left open at first if debris is present or infection is possible. This??lets fluid drain and helps the wound heal cleanly. The wound will later be closed by the surgeon.?? A flap of muscle and skin is brought over the end of the bone and sutured or stapled in place. Location of the sutures or adrian vary. A flap of muscle and skin is brought over the end of the bone and??stitched or stapled in place. Location of the??stitches??or adrian vary. ?? Risks and possible complications of surgery ??? Further surgery needed to remove more of the limb ??? Poor wound healing ??? Infection ??? Severe bleeding ??? Pain, including nerve-related symptoms, chronic pain, and phantom limb pain ??? Blood clots ??? Heart problems (heart attack, arrhythmias, heart failure) ??? Inability to fully straighten the limb ??? Depression ? After the surgery Pain management Your pain will be monitored at all stages of your recovery. Talk to your care team about options for medicine and other treatments to help manage your pain. When you wake up, you???ll have medicine??to help keep you comfortable. It will likely be given along with fluids??through an IV??(intravenous)??line that???s placed in a vein. Later, you???ll take pain pills as needed. ?? Other care You???ll have a??splint or some other form of pressure dressing on your residual limb. This helps control swelling and aid healing. You may be started on blood thinners??to prevent blood clots. You will get antibiotics just before surgery. These may continue after surgery, too. You may have a urinary catheter for a short time. ?? Recovering in the hospital You???ll stay in the hospital for about?? 3 to 7 ??days. Your stay may be longer or shorter. This will depend on your overall health and how fast you heal. You may start rehabilitation, including physical therapy (PT), soon after surgery, depending on your health. The goal of rehab is to help you reach your best level of health and quality of life, and to support your independence in walking and daily activities. You will have a rehab team that may include doctors, therapists, prosthetists, surgeons, nurses, and others involved in your care. You arethe most important member of this team. PT will help stretch and strengthen your muscles. It will also help prevent shortening of muscle orjoint tightening. You???ll learn how to safely move between your bed and other surfaces, such as a chair. This helps prevent falls so that your healing wound is protected. Later, you may be able to move around using a walker or crutches, if your surgery was on a lower limb. You may work with an occupational therapist. They can help you resume tasks, such as showering and dressing. ?? Going home You???ll be ready to go home when your pain is controlled by pain pills. You???ll also need to be able to move safely between surfaces. If you???re having trouble with these tasks, you may need more help. This may mean going to a nursing center or a rehab unit, if your amputation was on the lower limb.??If your surgery was on a lower limb, you may go home in a wheelchair. It??may have a special platform called an amputee board??to support your residual limb.??You may need to arrange for help athome. ?? At home At home, you???ll need to keep doing the exercises you were taught in the hospital. This will help prepare your residual limb to be fitted for a prosthesis. At all times, take care to move around safely to prevent falls. Falling can reopen your wound. Use your wheelchair, walker, or crutches at all times, if you get them. ?? Following up with the surgeon You???ll need to follow up with the surgeon about?? 5 to 7 ??days after you go home. They will check how your wound is healing. The stitches or adrian will likely come out about?? 2 to 3 weeks aftersurgery. This could be longer if you heal more slowly due to other health problems. Once healed, you may be able to be fitted for a prosthesis. ?? When to call your healthcare provider Check your wound at home as directed by the surgeon. Call your surgeon right away if you have any of these problems: ??? Fever of?? 100.4?? F??( 38.0??C) or higher, or as directed by your provider ??? Chills ??? Red streaks on the skin around the wound ??? Thick, cloudy, or yellow-brown drainage orodor from the wound ??? Skin that pulls apart at the wound ??? Severe increase in pain ??? Excessive bleeding ?? Last Reviewed Date: 2021 ?? 2146-4164 [employer]. All rights reserved. This information is not intended as a substitute for professional medical care. Always follow your healthcare professional's instructions. ?? * Mai Eldridge: PERFORM Event Display: Patient Education Leaflets Authored Date: [id number] Understanding Type 2 Diabetes ?? 52439 Understanding Type 2 Diabetes When your body is working normally, the food you eat is digested and used as fuel. This fuel gives energy to the body???s cells. When you have diabetes, the fuel can???t enter the cells. If not treated, diabetes can cause serious long- term health problems. Your body breaks down the food you eat into glucose. How the body gets energy The digestive system breaks down food. This results in a sugar called glucose. Some glucose is stored in the liver. But most of it enters the blood. It travels to the cells. They use it as fuel. Glucose needs the help of a hormone called insulin to enter the cells. Insulin is made in the pancreas. It is sent into the bloodstream. This is a response to glucose in the blood. Think of insulin as a rosa. When insulin reaches a cell, it attaches to the cell wall. This signals the cell to make an opening. Then glucose can enter the cell. ?? When you have type 2 diabetes Early in type 2 diabetes, your cells don???t respond correctly to insulin. Because of this, less glucose than normal moves into cells. This is called insulin resistance. The pancreas then makes more insulin. But over time, the pancreas can???t make enough insulin to overcome insulin resistance. Less and less glucose enters cells. It builds up to a harmful level in the bloodstream. This is known as high blood sugar (hyperglycemia). The result is type 2 diabetes. The cells become starved for energy. This can make you feel tired and rundown. ?? Why high blood sugar is a problem If high blood sugar isn't controlled, blood vessels all over the body become damaged. Ongoing high blood sugar affects organs, blood vessels, and nerves. This raises the risk of damage to the heart, kidneys, eyes, nerves, and limbs. Diabetes also makes other problems more dangerous. These include high blood pressure, high cholesterol, and triglycerides. Over time, people with uncontrolled high blood sugar have a greater risk of being disabled or dying from some conditions. These include heart attack, heart failure,??or stroke. They may also have problems in their eyes, kidneys, and nerves, mainly in their feet and lower legs. These problems are from injury to small blood vessels. ?? How daily issues affect your health Many things in your daily life impact your health. This can include transportation, money problems,housing, access to food, and school child care attendant. If you can???t get to medical appointments, you may not receive the care you need. When money is tight, it may be difficult to pay for medicines. And living far from a grocery store can make it hard to buy healthy food. If you have concerns in any of these or other areas, talk with your healthcare team. They may know of local resources to assist you. Or they may have a staff person who can help. ?? Last Reviewed Date: 2021 ?? [id number] [employer]. All rights reserved. This information is not intended as a substitute for professional medical care. Always follow your healthcare professional's instructions. ?? Portable XR Chest Views * APOLINAR Humphrey S: TRANSCAaron Perry MD: VERIFY Event Display: Result: Authored Date: [id number] Chest Portable Reason: Shortness of Breath; Clinical Question(s): Pulmonary Edema COMPARISON: 04/27/2022 FINDINGS: LINES AND TUBES: None. LUNGS AND PLEURA: Prominent bilateral pulmonary opacities throughout the lung frazier. Findings suggestive of pulmonary edema. No pleural effusion. No pneumothorax. HEART, MEDIASTINUM AND BRYCE: Moderate prominence of the cardiac silhouette, unchanged. Normal mediastinal and hilar contour. BONES AND SOFT TISSUES: No acute abnormality. IMPRESSION: Findings suggestive of pulmonary edema. WSN: [id number] Ordering Physician: Della Gonsales Dictated By: Aaron Thorpe MD Dictated Date/Time: 09/11/22 9:27 pm Reviewed By: Aaron Thorpe MD Signed By: Aaron Thorpe MD Signed Date/Time: 09/11/22 9:27 pm Transcribed By: TY Transcribed Date/Time: 09/11/22 9:27 pm Patient Care team information Care Team Personnel Name: Allegra Aguayo MD Position: [facility] Resident Member Role: PCP Address: Address: [address] [place] [address] Name: Vera Locke RN Position: S RN [...] Persons Name: MIKEY SEAY Address: home [address] [address] Name: MIKEY AYALA Address: home [address] [place] [address] Name: TANIA COPPOLA Address: home [address] [place] [address] Name: MUÑIZTONY ESPINALJORIE Address: home [address] [place] [address]
--- OUTSIDE RECORDS SUMMARY | 2023-02-20 15:14 | XMS_ITS | Continuity of Care Document ---
Author Name Unknown Organization [facility] Address [address] [place] [address]- Care Team Providers Care Sand Analyst Name Role Phone Olivier MOSEHR, Allegra Primary Care Physician Encounter [facility] [place] Date(s): 12/01/22 - 12/31/22 [facility] [address] [place] [address]- Allergies, Adverse Reactions, Alerts Substance Reaction Severity Status ibuprofen ABD PAIN Active morphine Vomiting and itchy Active traMADol Itchy, Hives Active Immunizations Given and Recorded Vaccine Date Status Refusal Reason SARS-CoV-2 mRNA (sylukrl-hvee-oiqgh) vax 02/22/22 Recorded SARS-CoV-2 (COVID-19) mRNA BNT-162b2 [...] Note: VIS GIVEN-DATED 05/30/11 2Result Comment: LOT [id number] EXP 04 MAY 2010 3Admin Note: VIS [...] 04/24/22 9:05:00 EDT, Route to Pharmacy Electronically, [facility], Partial fill upon patient request if the prescription is for a schedule II opio... Start Date: 04/24/22 Status: Ordered ammonium lactate 5% topical lotion 1 application, Topically, 2 times a day, # 240 Gm, 0 Refills, Maintenance, 05/01/22 12:34:00 EDT, Lotion, [facility]/pharmacy #[id number], Partial fill upon patient request if the prescription is for a schedule II opioid drug., 1 application Topically 2 times a da... Start Date: 05/01/22 Stop Date: 05/31/22 Status: Ordered aspirin 81 mg oral delayed release tablet 81 mg, By Mouth, Daily, # 30 tablet, Refills 2, Tot. Refills 2, Maintenance, 12/25/22 11:05:00 EST,Route to Pharmacy Electronically, [facility]/pharmacy #[id number], Partial fill upon patient request if the prescription is for a schedule II opioid drug., 169, cm,... Start Date: 12/25/22 Stop Date: 03/25/23 Status: Ordered atorvastatin 40 mg oral tablet 1 tablet = 40 mg, By Mouth, Daily, # 90 tablet, 2 Refills, Maintenance, 04/24/22 9:41:00 EDT, Tablet, [facility], Partial fill upon patient request if the [...] 16:13:00 EDT, Route to Pharmacy Electronically, [facility]/pharmacy #[id number], Partial fill upon patient request if [...] 03/16/22 14:30:00 EDT, Route to Pharmacy Electronically, [facility], Partial fill upon patient request if the [...] Refills, Maintenance, 09/21/22 11:57:00 EST, Tablet, [facility]/pharmacy #[id number], Partial fill upon patient request if [...] 10/16/22 10:25:00 EST, Route to Pharmacy Electronically, [facility] #[id number], Partial fill upon patientrequest if the prescription [...] 0 Refills, Maintenance, 01/03/23 15:48:00 EST, [facility]/pharmacy #[id number], Partial fill upon patient request if [...] 0 Refills, Maintenance, 12/15/22 18:43:00 EST, [facility]/pharmacy #[id number], Partial fill upon patient request if the prescription is for a schedule II opioid drug., 169, cm, 11/28/22... Start Date: 12/15/22 Status: Ordered PARoxetine 40 mg oral tablet 40 mg, 1, tablet, By Mouth, Daily, Refills 0, Maintenance, 01/11/22 9:43:00 EST Start Date: 01/11/22 Status: Ordered Pen [place], 31 G x 5 mm BD Ultra [...] 04/24/22 9:03:00 EDT, Route to Pharmacy Electronically, [facility], Partial fill upon patient request if the [...] 0 Refills, Maintenance, 11/22/22 12:11:00 EST, Ointment, [facility]/pharmacy #[id number], Partial fill upon patient request if [...] Refills, Maintenance, 10/16/22 13:14:00 EST, Solution, [facility]/pharmacy #[id number], Partial fill upon patient request if the prescription is for a schedule II opioid drug., 169, cm, 10/09/22 8:39... Start Date: 10/16/22 Status: Ordered Ventolin HFA 108 mcg/inh inhalation aerosol with adapter 1 puffs, Inhalation, Every 4 hours, PRN NEEDED FOR WHEEZING, # 18 Gm, 0 Refills, Maintenance, 12/15/22 18:28:00 EST, [facility]/pharmacy #[id number], 169, cm, 11/28/22 9:17:00 EST, Height, [...] Active Morbid obesity Confirmed Active BHN/CCA/CP- [facility] [phone] nursing home active care coordination Confirmed Active Peripheral vascular disease - right SFA angioplasty/right great toe amputation 2021 Confirmed Active Severe obesity (BMI 35.0-39.9) with comorbidity Confirmed Active Umbilical hernia Confirmed Active 1per 2016 and 2019 [facility] notes Social History Social History Type Response Smoking Status Never (less than 100 in lifetime) entered on: 09/03/19 Sex 1per pt Patient Care team information Care Team Personnel Name: Allegra Aguayo MD Position: [facility] Resident Member Role: PCP Address: Address: [address] [place] [address] Name: Vera Locke RN Position: S RN Member Role: Primary Care Nurse Name: Baljit Martínez RN Position: [facility] RN Member Role: Primary Care Nurse Name: Sabine Guthrie RN Position: S RN Member Role: Primary Care Nurse Name: Aditi Hernandez RN Position: S RN Member Role: Primary Care Nurse Name: Piyush Moore RN Position: [facility] RN Member Role: Primary Care Nurse Name: Mis Vences RN Position: S RN Member Role: Primary Care Nurse Name: Angie Lopez RN Position: S RN Member Role: Primary Care Nurse Name: Lizzie Estrada RN Position: [facility] Onco RN Member Role: Primary Care Nurse Care Team Related Persons Name: MIKEY SEAY Address: home [address] [address] Name: MIKEY AYALA Address: [address] [place] [address] Name: TANIA COPPOLA Address: home [address] [place] [id number] Name: TANIA MUÑIZ Address: home [address] [place] [address]
--- OUTSIDE RECORDS SUMMARY | 2023-02-20 15:14 | XMS_ITS | Continuity of Care Document ---
Author Name Unknown Organization [facility] Address [address] [place] [address]- Care Team Providers Care Wood Drilling Machine Operator Name Role Phone Olivier MOSHER, Allegra Primary Care Physician [phone] [place] [facility] Date(s): 12/14/22 - 01/13/23 [facility] [address] [place] [address]- Allergies, Adverse Reactions, Alerts Substance Reaction Severity Status ibuprofen ABD PAIN Active morphine Vomiting and itchy Active traMADol Itchy, Hives Active Immunizations Given and Recorded Vaccine Date Status Refusal Reason SARS-CoV-2 mRNA ([id number]) vax 02/22/22 Recorded SARS-CoV-2 (COVID-19) mRNA BNT-162b2 [...] Note: VIS GIVEN-DATED 05/30/11 2Result Comment: LOT [id number] EXP 04 MAY 2010 3Admin Note: VIS [...] 04/24/22 9:05:00 EDT, Route to Pharmacy Electronically, [facility], Partial fill upon patient request if the prescription is for a schedule II opio... Start Date: 04/24/22 Status: Ordered ammonium lactate 5% topical lotion 1 application, Topically, 2 times a day, # 240 Gm, 0 Refills, Maintenance, 05/01/22 12:34:00 EDT, Lotion, [facility]/pharmacy #[id number], Partial fill upon patient request if the prescription is for a schedule II opioid drug., 1 application Topically 2 times a da... Start Date: 05/01/22 Stop Date: 05/31/22 Status: Ordered aspirin 81 mg oral delayed release tablet 81 mg, By Mouth, Daily, # 30 tablet, Refills 2, Tot. Refills 2, Maintenance, 12/25/22 11:05:00 EST,Route to Pharmacy Electronically, [facility]/pharmacy #[id number], Partial fill upon patient request if the prescription is for a schedule II opioid drug., 169, cm,... Start Date: 12/25/22 Stop Date: 03/25/23 Status: Ordered atorvastatin 40 mg oral tablet 1 tablet = 40 mg, By Mouth, Daily, # 90 tablet, 2 Refills, Maintenance, 04/24/22 9:41:00 EDT, Tablet, [facility], Partial fill upon patient request [...] 07/26/22 16:13:00 EDT, Route to Pharmacy Electronically, [facility]/pharmacy #[id number], Partial fill upon patient request if the pres... Start Date: 07/26/22 Stop Date: 01/22/23 Status: Ordered carvedilol 25 mg oral tablet 25 mg, 1, tablet, By Mouth, 2 times a day, # 60 tablet, Refills 2, Tot. Refills 2, Maintenance, 01/22/23 16:13:00 EDT, Route to Pharmacy Electronically, [facility]/pharmacy #[id number], Partial fill upon patient request if the prescription is for a schedule II opi... Start Date: 01/22/23 Stop Date: 04/22/23 Status: Ordered Colace sodium 100 mg oral capsule 100 mg, 1, capsule, By Mouth, 2 times a day, PRN, # 60 capsule, Refills 0, Tot. Refills 0, Maintenance, for constipation, 03/16/22 14:30:00 EDT, Route to Pharmacy Electronically, [facility], Partial fill upon patient request [...] 0 Refills, Maintenance, 09/21/22 11:57:00 EST, Tablet, [facility]/pharmacy #[id number], Partial fill upon patient request if [...] Route to Pharmacy Electronically, [facility] #[id number], Partial fill upon patientrequest if the prescription [...] each, 0 Refills, Maintenance, 01/03/23 15:48:00 EST, [facility]/pharmacy #[id number], Partial fill upon patient request if the prescription is for a schedule II opioid drug., 169, cm, 11/28/22... Start Date: 01/03/23 Stop Date: 02/02/23 Status: Ordered Lasix 20 mg oral tablet 1, capsule, By Mouth, Once, take one pill daily for 3 days, # 3 tablet, Refills 0, Tot. Refills 0, Soft Stop, 09/20/22 11:19:00 EST, Route to Pharmacy Electronically, [facility]/pharmacy #[id number], Partial fillupon patient request if the prescription is for a s... Start Date: 09/20/22 Status: Ordered levoFLOXacin 250 mg oral tablet 1 tablet = 250 mg, By Mouth, Every 24 hours, # 14 tablet, 0 Refills, Maintenance, 09/20/22 11:28:00EST, Tablet, [facility]/pharmacy #[id number], Partial fill upon patient request if the prescription is for a schedule II opioid drug., 169, cm, 09/20/22 9:22:00 EST... Start Date: 09/20/22 Stop Date: 10/04/22 Status: Ordered lisinopril 10 mg oral tablet 10 mg, 1, tablet, By Mouth, Daily, # 90 tablet, Refills 0, Tot. Refills 0, Maintenance, 11/30/22 8:10:00 EST, Route to Pharmacy Electronically, [facility]/pharmacy #[id number], Partial fill upon patient request if [...] tablet, 0 Refills, Maintenance, 11/28/22 13:29:00 EST, [facility]/pharmacy #[id number], Partial fill upon patient request if the prescription is for a schedule II opioid drug., 169,... Start Date: 11/28/22 Status: Ordered oxyCODONE 10 mg oral tablet 1 tablet = 10 mg, By Mouth, Every 12 hours, PRN Pain , Moderate, # 30 tablet, 0 Refills, Maintenance, 01/12/23 13:41:00 EST, [facility]/pharmacy #[id number], Partial fill upon patient request if the prescription is for a schedule II opioid drug., 169, cm, 11/28/22... Start Date: 01/12/23 Status: Ordered PARoxetine 40 mg oral tablet 40 mg, 1, tablet, By Mouth, Daily, Refills 0, Maintenance, 01/11/22 9:43:00 EST Start Date: 01/11/22 Status: Ordered Pen [place], 31 G x 5 mm BD Ultra [...] 04/24/22 9:03:00 EDT, Route to Pharmacy Electronically, [facility], Partial fill upon patient request [...] 0 Refills, Maintenance, 11/22/22 12:11:00 EST, Ointment, [facility]/pharmacy #[id number], Partial fill upon patient request if [...] Active Morbid obesity Confirmed Active BHN/CCA/CP- Angle [phone] [facility] active care coordination Confirmed Active Peripheral vascular disease - right SFA angioplasty/right great toe amputation 2021 Confirmed Active Severe obesity (BMI 35.0-39.9) with comorbidity Confirmed Active Umbilical hernia Confirmed Active 1per 2017 and 2019 [facility] notes Social History Social History Type Response Smoking Status Never (less than 100 in lifetime) entered on: 09/03/19 Sex 1per pt Patient Care team information Care Team Personnel Name: Allegra Aguayo MD Position: [facility] Resident Member Role: PCP Address: Address: [address] [place] [address] [place], [place] [address] Name: Vera Locke RN Position: S RN Member Role: Primary Care Nurse Name: Baljit Martínez RN Position: [facility] RN Member Role: Primary Care Nurse Name: Sabine Guthrie RN Position: [facility] RN Member Role: Primary Care Nurse Name: Aditi Hernandez RN Position: [facility] RN Member Role: Primary Care Nurse Name: Piyush Moore RN Position: [facility] RN Member Role: Primary Care Nurse Name: Mis Vences RN Position: [facility] RN Member Role: Primary Care Nurse Name: Angie Lopez RN Position: [facility] RN Member Role: Primary Care Nurse Name: Lizzie Estrada RN Position: [facility] Onco RN Member Role: Primary Care Nurse Care Team Related Persons Name: MIKEY SEAY Address: home [address] [address] Name: MIKEY AYALA Address: home [address] [place] [address] Name: TANIA COPPOLA Address: home [address] [place] [id number] Name: TANIA MUÑIZ Address: home [address] [place] [id number]
--- OUTSIDE RECORDS SUMMARY | 2023-02-20 15:14 | XMS_ITS | Continuity of Care Document ---
Author Name Unknown Organization [facility] Address [address] [place] [address]- Care Team Providers Care Plate Inspector Name Role Phone Sangeetha MOSHER, Marcia Koroma Primary Care Physician [facility] Date(s): 04/06/21 - 05/06/21 [facility] [address], [place] [address] Allergies, Adverse Reactions, Alerts Substance Reaction Severity [...] Note: VIS GIVEN-DATED 05/30/11 2Result Comment: LOT [id number] EXP 04 MAY 2010 3Admin Note: VIS given Medications albuterol 90 mcg/inh inhalation powder 2 puffs, Inhalation, Every 6 hours, PRN as needed, # 1 each, 11 Refills, Maintenance, 12/08/20 11:02:00 EST, Powder, [facility] #[id number], 2 puffs Inhalation Every 6 hours,PRN:as needed, 170, cm, 05/20/20 14:48:00 EDT, Height, 100.5, kg, 05/30/... Start Date: 12/08/20 Status: Ordered Alcohol Wipes [...] 07/30/20 18:34:00 EDT, Route to Pharmacy Electronically, [facility] #[id number], 170, cm, 05/20/20 14:48:00 EDT, Height, 100.5, kg, 05/30/19 9:39:00 EDT, Dry... Start Date: 07/30/20 Stop Date: 07/25/21 Status: Ordered aspirin 81 mg oral delayed release tablet 81 mg, 1, tablet, By Mouth, Daily, # 30 tablet, Refills 11, Tot. Refills 11, Maintenance, 05/20/20 14:45:00 EDT, Route to Pharmacy Electronically, [facility] #[id number], 170, cm, 05/20/20 14:08:00 EDT, Height, 100.5, kg, 05/30/19 9:39:00 EDT, . Start Date: 05/20/20 Status: Ordered atorvastatin 10 mg oral tablet 1 tablet = 10 mg, By Mouth, Daily, # 90 tablet, 1 Refills, Maintenance, 05/05/21 10:09:00 EDT, [facility] #[id number], 170, cm, 12/21/20 9:18:00 EST, Height, 100.5, [...] tablet, 0 Refills, Maintenance, 03/28/21 10:39:00 EDT, [facility] #[id number], 170, cm, 12/21/20 9:18:00 EST, Height, 100.5, kg, 05/30/19 9:39:00 EDT, Dry Weight Start Date: 03/28/21 Status: Ordered Lantus Solostar Pen 100 units/mL subcutaneous solution See Instructions, Inject 40 units under the skin twice daily., # 24 mL, 3 Refills, Maintenance, 01/29/21 9:00:00 EDT, [facility] #[id number], 170, cm, 12/21/20 9:18:00 EST, Height, 100.5, kg, 05/30/19 9:39:00 EDT, Dry Weight Start Date: 01/29/21 Status: Ordered lisinopril 40 mg oral tablet 1 tablet = 40 mg, By Mouth, Daily, # 90 tablet, 4 Refills, Maintenance, 02/03/20 12:39:00 EDT, Tablet, [facility] #[id number], 170, cm, 12/16/19 10:11:00 EST, Height, 100.5, kg, 05/30/19 9:39:00EDT, Dry Weight Start Date: 02/03/20 Stop Date: 04/28/21 Status: Ordered Melatonin 5 mg oral tablet 0 Refills, Maintenance, 01/29/19 10:09:09 EDT Start Date: 01/29/19 Status: Ordered NovoLOG FlexPen 100 units/mL injectable solution See Instructions, INJECT 20 UNITS SUBCUTANEOULSY THREE TIMES DAILY BEFORE MEALS., # 48 mL, 0 Refills, 03/30/21 11:25:00 EDT, [facility] #[id number], 170, cm, 12/21/20 9:18:00 EST, Height, 100.5,kg, 05/30/19 9:39:00 EDT, Dry Weight Start Date: 03/30/21 Status: Ordered OXcarbazepine 300 mg oral tablet TK 1 T PO BID Start Date: 01/29/19 Status: Ordered PARoxetine 40 mg oral tablet TK 1 T PO HS Start Date: 01/29/19 Status: Ordered Pen [place], 31 G x 5 mm BD Ultra Fine III See Instructions, # 150 each, Refills 11, Tot. Refills 11, Maintenance, use to inject insulin up tofive times daily dx e11.9, 10/21/20 15:55:00 EST, Supply, 170, cm, 05/20/20 14:48:00 EDT, Height, 100.5, kg, 05/30/19 9:39:00 EDT, Dry Weight Start Date: 10/21/20 Status: Ordered Pen [place], 31 G x 5 mm BD Ultra [...] 5 Refills, Maintenance, 02/01/21 14:49:00 EDT, Solution, [facility] #[id number], to replace 0.75 mg dose, 170, cm, [...] Microalbuminuria(Confirmed) Active Morbid obesity(Confirmed) Active BHN/CCA/AUDRA-Mignon Peters [phone]/Health residential active care coordination(Confirmed) Active Peripheral vascular disease(Confirmed) Active Umbilical hernia(Confirmed) Active 1per 2016 and 2018 [facility] notes Social History Social History Type Response Smoking Status Never (less than 100 in lifetime) entered on: 09/03/19 Sex Female 1per pt
--- OUTSIDE RECORDS SUMMARY | 2023-02-20 15:14 | XMS_ITS | Continuity of Care Document ---
Author Name Unknown Organization [facility] Address [address] [place] [address]- Care Team Providers Care College Basketball Coach Name Role Phone Olivier MOSHER, Allegra Primary Care Physician [phone] Encounter [facility] Date(s): 12/04/22 - 01/03/23 [facility] [address] [place] [id number] Allergies, Adverse Reactions, Alerts Substance Reaction Severity Status ibuprofen ABD PAIN Active morphine Vomiting and itchy Active traMADol Itchy, Hives Active Immunizations Given and Recorded Vaccine Date Status Refusal Reason SARS-CoV-2 mRNA ([id number]) vax 02/22/22 Recorded SARS-CoV-2 (COVID-19) mRNA BNT-162b2 [...] Note: VIS GIVEN-DATED 05/30/11 2Result Comment: LOT [id number] EXP 04 MAY 2010 3Admin Note: VIS [...] 0 Refills, Maintenance, 05/01/22 12:34:00 EDT, Lotion, [facility]/pharmacy #[id number], Partial fill upon patient request if the prescription is for a schedule II opioid drug., 1 application Topically 2 times a da... Start Date: 05/01/22 Stop Date: 05/31/22 Status: Ordered aspirin 81 mg oral delayed release tablet 81 mg, By Mouth, Daily, # 30 tablet, Refills 2, Tot. Refills 2, Maintenance, 12/25/22 11:05:00 EST,Route to Pharmacy Electronically, [facility]/pharmacy #[id number], Partial fill upon patient request [...] 16:13:00 EDT, Route to Pharmacy Electronically, [facility]/pharmacy #[id number], Partial fill upon patient request if the pres... Start Date: 07/26/22 Stop Date: 01/22/23 Status: Ordered carvedilol 25 mg oral tablet 25 mg, 1, tablet, By Mouth, 2 times a day, # 60 tablet, Refills 2, Tot. Refills 2, Maintenance, 01/22/23 16:13:00 EDT, Route to Pharmacy Electronically, [facility]/pharmacy #[id number], Partial fill upon patient request if the prescription is for a schedule II opi... Start Date: 01/22/23 Stop Date: 04/22/23 Status: Ordered Colace sodium 100 mg oral capsule 100 mg, 1, capsule, By Mouth, 2 times a day, PRN, # 60 capsule, Refills 0, Tot. Refills 0, Maintenance, for constipation, 03/16/22 14:30:00 EDT, Route to Pharmacy Electronically, [facility] [...] 0 Refills, Maintenance, 09/21/22 11:57:00 EST, Tablet, [facility]/pharmacy #[id number], Partial fill upon patient request [...] 10/16/22 10:25:00 EST, Route to Pharmacy Electronically, [facility] #[id number], Partial fill upon patientrequest if the prescription [...] each, 0 Refills, Maintenance, 01/03/23 15:48:00 EST, [facility]/pharmacy #[id number], Partial fill upon patient request if the prescription is for a schedule II opioid drug., 169, cm, 11/28/22... Start Date: 01/03/23 Stop Date: 02/02/23 Status: Ordered Lasix 20 mg oral tablet 1, capsule, By Mouth, Once, take one pill daily for 3 days, # 3 tablet, Refills 0, Tot. Refills 0, Soft Stop, 09/20/22 11:19:00 EST, Route to Pharmacy Electronically, [facility]/pharmacy #[id number], Partial fillupon patient request if the prescription is for a s... Start Date: 09/20/22 Status: Ordered levoFLOXacin 250 mg oral tablet 1 tablet = 250 mg, By Mouth, Every 24 hours, # 14 tablet, 0 Refills, Maintenance, 09/20/22 11:28:00EST, Tablet, [facility]/pharmacy #[id number], Partial fill upon patient request if the prescription is for a schedule II opioid drug., 169, cm, 09/20/22 9:22:00 EST... Start Date: 09/20/22 Stop Date: 10/04/22 Status: Ordered lisinopril 10 mg oral tablet 10 mg, 1, tablet, By Mouth, Daily, # 90 tablet, Refills 0, Tot. Refills 0, Maintenance, 11/30/22 8:10:00 EST, Route to Pharmacy Electronically, [facility]/pharmacy #[id number], Partial fill upon patient request [...] tablet, 0 Refills, Maintenance, 01/01/23 21:26:00 EST, [facility]/pharmacy #[id number], Partial fill upon patient request if the prescription is for a schedule II opioid drug., 169, cm, 11/28/22... Start Date: 01/01/23 Status: Ordered oxyCODONE 10 mg oral tablet 1 tablet = 10 mg, By Mouth, Every 12 hours, [place] REVIEWED NO driving, # 24 tablet, 0 Refills, Maintenance, 11/28/22 13:29:00 EST, [facility]/pharmacy #[id number], Partial fill upon patient request if the prescription is for a schedule II opioid drug., 169,... Start Date: 11/28/22 Status: Ordered PARoxetine 40 mg oral tablet 40 mg, 1, tablet, By Mouth, Daily, Refills 0, Maintenance, 01/11/22 9:43:00 EST Start Date: 01/11/22 Status: Ordered Pen [place], 31 G x 5 mm BD Ultra [...] Active Morbid obesity Confirmed Active BHN/CCA/CP- [facility] [phone] [facility] active care coordination Confirmed Active Peripheral vascular disease - right SFA angioplasty/right great toe amputation 2021 Confirmed Active Severe obesity (BMI 35.0-39.9) with comorbidity Confirmed Active Umbilical hernia Confirmed Active 1per 2017 and 2019 [facility] notes Social History Social History Type Response Smoking Status Never (less than 100 in lifetime) entered on: 09/03/19 Sex 1per pt Patient Care team information Care Team Personnel Name: Allegra Aguayo MD Position: [facility] Resident Member Role: PCP Address: Address: [address] [place] [address]- Name: Vera Locke RN Position: S RN Member Role: Primary Care Nurse Name: Mauricio RNBaljit Position: [facility] RN Member Role: Primary Care Nurse Name: Sabine Guthrie RN Position: [facility] RN Member Role: Primary Care Nurse Name: Aditi Hernandez RN Position: [facility] RN Member Role: Primary Care Nurse Name: Piyush Moore RN Position: [facility] RN Member Role: Primary Care Nurse Name: Mis Vences RN Position: [facility] RN Member Role: Primary Care Nurse Name: Angie Lopez RN Position: [facility] RN Member Role: Primary Care Nurse Name: Lizzie Estrada RN Position: [facility] Onco RN Member Role: Primary Care Nurse Care Team Related Persons Name: MIKEY SEAY Address: home [address] [address] Name: MIKEY AYALA Address: [address] [place] [address] Name: TANIA COPPOLA Address: home [address] [place] [address] Name: TANIA MUÑIZ Address: home [address] [place] [address]
--- OUTSIDE RECORDS SUMMARY | 2023-02-20 15:14 | XMS_ITS | Continuity of Care Document ---
Author Name Unknown Organization [facility] Address [address] [place] [address]- Care Team Providers Care Asset Protection Associate Name Role Phone Sangeetha MOSHER, Marcia Koroma Primary Care Physician [phone] [facility]counter [facility] Date[facility]s): 07/29/20 - 08/28/20 [facility] [address] [place] [address]- [facility] Allergies, Adverse Reactions, Alerts Substance Reaction Severity [...] Note: VIS GIVEN-DATED 05/30/11 2Result Comment: LOT [id number] EXP 04 MAY 2010 3Admin Note: VIS [...] 07/30/20 18:34:00 EDT, Route to Pharmacy Electronically, [facility] #[id number], 170, cm, 05/20/20 14:48:00 EDT, Height, 100.5, kg, 05/30/19 9:39:00 EDT, Dry... Start Date: 07/30/20 Stop Date: 07/25/21 Status: Ordered aspirin 81 mg oral delayed release tablet 81 mg, 1, tablet, By Mouth, Daily, # 30 tablet, Refills 11, Tot. Refills 11, Maintenance, 05/20/20 14:45:00 EDT, Route to Pharmacy Electronically, [facility] #[id number], 170, cm, 05/20/20 14:08:00 EDT, Height, 100.5, kg, 05/30/19 9:39:00 EDT, . Start Date: 05/20/20 Status: Ordered atorvastatin 10 mg oral tablet 1 tablet = 10 mg, By Mouth, Daily, # 30 tablet, 11 Refills, Maintenance, 05/20/20 14:46:00 EDT, [facility] #[id number], 170, cm, 05/20/20 14:08:00 EDT, Height, 100.5, [...] 03/06/19 17:12:53 EDT, Route to Pharmacy Electronically, [id number], [facility] [id number] Start Date: 03/06/19 Status: Ordered Insulin Syringe, BD Ultra-Fine 0.5 cc 31 G x 8 mm (516in) See Instructions, # 150 each, Refills 11, Tot. Refills 11, Maintenance, use as directed for Type 2 Diabetes Mellitus to admisiter insulin four times a day. Dx; E11.9, 05/15/21 15:10:00 EDT, pt was transferred to [facility], all meds left beh... Start Date: 05/15/21 Stop Date: 05/10/22 Status: Ordered Insulin Syringe, BD Ultra-Fine 0.5 cc 31 G x 8 mm (5/16in) See Instructions, for 30 days, # 150 each, Refills 11, Tot. Refills 11, Hard Stop 05/15/21 15:10:00EDT, use as directed for Type 2 Diabetes Mellitus to admisiter insulin four times a day. Dx; E11.9,05/20/20 15:10:00 EDT, [facility] Start Date: 05/20/20 Stop Date: 05/15/21 Status: Ordered Lantus 100 u/ml subcutaneous solution = 40 units, Subcutaneous Infusion, 2 times a day, # 15 mL, 3 Refills, Maintenance, 07/30/20 18:34:00 EDT, [facility] #[id number], 170, cm, 05/20/20 14:48:00 EDT, Height, 100.5, kg, 05/30/19 9:39:00 EDT, Dry Weight Start Date: 07/30/20 Stop Date: 11/27/20 Status: Ordered lidocaine 4% topical cream 1 application, Topically, Daily, for 30 days, # 30 Gm, 2 Refills, Acute 11/04/20 13:08:00 EST, 08/06/20 13:08:00 EDT, Cream, [facility] #[id number], 1 application Topically Daily,x30 days, 170, cm, 05/20/20 14:48:00 EDT, Height, 100.5, kg, ... Start Date: 08/06/20 Stop Date: 11/04/20 Status: Ordered lisinopril 40 mg oral tablet 1 tablet = 40 mg, By Mouth, Daily, # 90 tablet, 4 Refills, Maintenance, 02/03/20 12:39:00 EDT, Tablet, [facility] #[id number], 170, cm, 12/16/19 10:11:00 EST, Height, 100.5, kg, 05/30/19 9:39:00EDT, Dry Weight Start Date: 02/03/20 Stop Date: 04/28/21 Status: Ordered Melatonin 5 mg oral tablet 0 Refills, Maintenance, 01/29/19 10:09:09 EDT Start Date: 01/29/19 Status: Ordered NovoLOG 100 units/mL injectable solution = 20 units, Subcutaneous Infusion, 3 times a day before meals, replaces humalog, # 50 mL, 1 Refills, Maintenance, 07/29/20 11:23:00 EDT, [facility] #[id number], 170, cm, 05/20/20 14:48:00 EDT, Height, 100.5, [...] 0 Refills, Maintenance, 05/20/20 15:09:00 EDT, Ointment, [facility] #[id number], 1 application Topically 2 times a day,x14 days,Instr:apply a thin film; to aff... Start Date: 05/20/20 Stop Date: 06/03/20 Status: Ordered Trulicity Pen 1.5 mg/0.5 mL subcutaneous solution 0.5 mL = 1.5 mg, Subcutaneous Injection, Every week, # 2.5 mL, 5 Refills, Maintenance, 07/29/20 8:56:00 EDT, Solution, [facility] #[id number], 170, cm, 05/20/20 14:48:00 EDT, Height, 100.5, [...] Umbilical hernia(Confirmed) Active 1per 2016 and 2018 [facility] notes Social History Social History Type Response Smoking Status Never (less than 100 in lifetime) entered on: 09/03/19 Sex Female 1per pt
--- OUTSIDE RECORDS SUMMARY | 2023-02-20 15:14 | XMS_ITS | Continuity of Care Document ---
Author Name Unknown Organization [facility] Address [address] [place] [address]- Care Team Providers Care Drop Hammer Set Up Operator Name Role Phone Josef MOSHER, Mamie Patterson Primary Care Physician [place] [facility] [place] [facility] [place](s[place] 03/10/22 - 04/27/22 [facility] [address] [place] [id number] Attending Physician: Nanda Cabrera MD Admitting Physician: Nanda Cabrera MD Referring Physician: Carmelita MOSHER, Maurilio Barnes Allergies, Adverse Reactions, Alerts Substance Reaction Severity Status ibuprofen ABD PAIN Active morphine Vomiting and itchy Active traMADol Itchy, Hives Active Immunizations Given and Recorded Vaccine Date Status Refusal Reason SARS-CoV-2 mRNA (pgokeyj-[id number]) vax 02/22/22 Recorded SARS-CoV-2 (COVID-19) mRNA BNT-162b2 [...] Note: VIS GIVEN-DATED 05/30/11 2Result Comment: LOT [id number] EXP 04 MAY 2010 3Admin Note: VIS [...] 04/24/22 9:05:00 EDT, Route to Pharmacy Electronically, [facility], Partial fill upon patient request if the prescription is for a schedule II opio... Start Date: 04/24/22 Status: Ordered aspirin 81 mg oral delayed release tablet 81 mg, By Mouth, Daily, # 30 tablet, Refills 5, Tot. Refills 5, Maintenance, 05/13/22 16:40:00 EDT,Route to Pharmacy Electronically, [facility], Partial fill upon patient request if the prescription is for a schedule II opioid drug.,... Start Date: 05/13/22 Stop Date: 11/09/22 Status: Ordered aspirin 81 mg oral delayed release tablet 81 mg, By Mouth, Daily, for 30 days, # 30 tablet, Refills 0, Tot. Refills 0, Hard Stop 05/13/22 16:40:00 EDT, 04/13/22 16:40:00 EDT, Route to Pharmacy Electronically, [facility], Partial fill upon patient request if the prescription is f... Start Date: 04/13/22 Stop Date: 05/13/22 Status: Ordered atorvastatin 40 mg oral tablet 1 tablet = 40 mg, By Mouth, Daily, # 90 tablet, 2 Refills, Maintenance, 04/24/22 9:41:00 EDT, Tablet, [facility], Partial fill upon patient request [...] 05/13/22 16:40:00 EDT, Route to Pharmacy Electronically, [facility], Partial fill upon patient request if the prescription is for a schedul... Start Date: 05/13/22 Stop Date: 11/09/22 Status: Ordered carvedilol 25 mg oral tablet 25 mg, 1, tablet, By Mouth, 2 times a day, for 30 days, # 60 tablet, Refills 0, Tot. Refills 0, Hard Stop 05/13/22 16:40:00 EDT, 04/13/22 16:40:00 EDT, Route to Pharmacy Electronically, [facility], Partial fill upon patient request if th... Start Date: 04/13/22 Stop Date: 05/13/22 Status: Ordered Colace sodium 100 mg oral capsule 100 mg, 1, capsule, By Mouth, 2 times a day, PRN, # 60 capsule, Refills 0, Tot. Refills 0, Maintenance, for constipation, 03/16/22 14:30:00 EDT, Route to Pharmacy Electronically, [facility], Partial fill upon patient request [...] 05/11/22 8:04:00 EDT, 04/27/22 8:04:00 EDT, Capsule, [facility], Partial fill upon patient [...] 04/24/22 9:02:00 EDT, Route to Pharmacy Electronically, [facility], Partial fill upon patient request if the prescription is for a schedule II opio... Start Date: 04/24/22 Status: Ordered insulin aspart 100 units/mL subcutaneous solution = 20 units, Subcutaneous Injection, 3 times a day before meals, # 10 mL, 11 Refills, Maintenance, 03/10/22 9:06:00 EDT, Solution, [facility] #[id number], Partial fill upon patient request if theprescription [...] tablet, 11 Refills, Maintenance, 03/09/22 14:23:00 EDT, [facility], resent - not recvd, 169, cm, 03/09/22 13:46:00 EDT, Height, 104.9, kg, 03/04/22 2:58:00 EDT, Dry Weight Start Date: 03/09/22 Status: Ordered Lantus 100 u/ml subcutaneous solution = 30 units, Subcutaneous Injection, 2 times a day, # 10 mL, 5 Refills, Maintenance, 03/10/22 9:05:00 EDT, Solution, [facility] #[id number], Partial fill upon patient request if the prescription is for a schedule II opioid drug., 169, cm, 03/09/22... Start Date: 03/10/22 Status: Ordered lisinopril 10 mg oral tablet 10 mg, 1, tablet, By Mouth, Daily, # 30 tablet, Refills 4, Tot. Refills 4, Maintenance, 04/24/22 9:41:00 EDT, Route to Pharmacy Electronically, [facility], Partial fill upon patient request [...] 04/24/22 13:25:00 EDT, Route to Pharmacy Electronically, [facility]/pharmacy #[id number], Partial fill upon patient request if t... Start Date: 04/24/22 Stop Date: 05/24/22 Status: Ordered PARoxetine 40 mg oral tablet 40 mg, 1, tablet, By Mouth, Daily, Refills 0, Maintenance, 01/11/22 9:43:00 EST Start Date: 01/11/22 Status: Ordered Plavix 75 mg oral tablet 75 mg, 1, tablet, By Mouth, Daily, # 30 tablet, Refills 5, Tot. Refills 5, Maintenance, 04/24/22 9:03:00 EDT, Route to Pharmacy Electronically, [facility], Partial fill upon patient request [...] 0 Refills, Maintenance, 04/18/22 9:51:00 EDT, Aerosol, [facility] Partial fill upon patient request [...] 0 Refills, Maintenance, 03/09/22 14:21:00 EDT, Gel, [facility] Partial fill upon patient request [...] mL, 11 Refills, 03/09/22 14:22:00 EDT, [facility] 169, cm, 03/09/22 13:46:00 EDT, Height, 104.9, kg, 03/04/22 2:58:00 EDT, Dry Weight Start Date: 03/09/22 Status: Ordered Tylenol 8 Hour 650 mg oral tablet, extended release 2 tablet = 1,300 mg, By Mouth, Every 8 hours, PRN as needed for pain, # 24 tablet, 0 Refills, Maintenance, 04/24/22 9:43:00 EDT, ER Tablet, [facility] Partial fill upon patient request [...] Active Obese class II(Confirmed) Active [facility] [phone]/Health shelter active care coordination(Confirmed) Active Peripheral vascular disease(Confirmed) Active Uncontrolled type 1 diabetes mellitus with hyperglycemia, with long-term current use of insulin(Confirmed) Active Umbilical hernia(Confirmed) Active 1per 2017 and 2019 [facility] notes Social History Social History Type Response Smoking Status Never (less than 100 in lifetime) entered on: 09/03/19 Sex 1per pt
--- OUTSIDE RECORDS SUMMARY | 2023-02-20 15:14 | XMS_ITS | Continuity of Care Document ---
Author Name Unknown Organization [facility] Address [address] [place] [address]- Care Team Providers Care Assembler Flexible Leads Name Role Phone Olivier MOSHER, Allegra Primary Care Physician [place] [facility] [place] 04/24/22 - 05/24/22 [facility] [address] [place], [place] [address] Allergies, Adverse Reactions, Alerts Substance Reaction Severity Status ibuprofen ABD PAIN Active traMADol Itchy, Hives Active morphine Vomiting and itchy Active Immunizations Given and Recorded Vaccine Date Status Refusal Reason SARS-CoV-2 mRNA ([id number]-[id number]) vax 02/22/22 Recorded SARS-CoV-2 (COVID-19) mRNA BNT-162b2 [...] Note: VIS GIVEN-DATED 05/30/11 2Result Comment: LOT [id number] EXP 04 MAY 2010 3Admin Note: VIS [...] EDT, Lotion, [facility]/pharmacy #[id number], Partial [...] 11 Refills, Maintenance, 03/10/22 9:06:00 EDT, Solution, [facility] #[id number], Partial fill upon patient request if theprescription [...] tablet, 1 Refills, Maintenance, 05/15/22 16:38:00 EDT, [facility]/pharmacy#[id number], resent - not recvd, 169, cm, 05/01/22 10:56:00 EDT, Height, 104.9, kg, 03/04/22 2:58:00 EDT,Dry Weight Start Date: 05/15/22 Status: Ordered Lantus 100 u/ml subcutaneous solution = 30 units, Subcutaneous Injection, 2 times a day, # 10 mL, 5 Refills, Maintenance, 03/10/22 9:05:00 EDT, Solution, [facility] #[id number], Partial fill upon patient request if the prescription is for a schedule II opioid drug., 169, cm, 03/09/22... Start Date: 03/10/22 Status: Ordered lisinopril 10 mg oral tablet 10 mg, 1, tablet, By Mouth, Daily, # 30 tablet, Refills 4, Tot. Refills 4, Maintenance, 04/24/22 9:41:00 EDT, Route to Pharmacy Electronically, [facility], [...] 05/24/22 10:39:00 EDT, Route to Pharmacy Electronically, [facility]/pharmacy #[id number], Partial fill upon patient... [...] Obese class I(Confirmed) Active [facility] [phone]/Health custodial active care coordination(Confirmed) Active Peripheral vascular disease(Confirmed) Active Uncontrolled type 1 diabetes mellitus with hyperglycemia, with long-term current use of insulin(Confirmed) Active Umbilical hernia(Confirmed) Active 1per 2016 and 2019 [facility] notes Social History Social History Type Response Smoking Status Never (less than 100 in lifetime) entered on: 09/03/19 Sex 1per pt
--- OUTSIDE RECORDS SUMMARY | 2023-02-20 15:14 | XMS_ITS | Continuity of Care Document ---
Author Name Unknown Organization [facility] Address [address] [place] [address]- Care Team Providers Care Asp Net Mvc Developer Name Role Phone Olivier MOSHER, Allegra Primary Care Physician [phone] [place] [facility] [id number] Date(s): 07/19/22 - 09/01/22 [facility] [address] [place], [place] [address] Attending Physician: Roseanna DONIS, Jonah Admitting Physician: Roseanna MANAGER EMPLOYEE RELATIONSJonah Allergies, Adverse Reactions, Alerts Substance Reaction Severity Status ibuprofen ABD PAIN Active morphine Vomiting and itchy Active traMADol Itchy, Hives Active Immunizations Given and Recorded Vaccine Date Status Refusal Reason SARS-CoV-2 mRNA ([id number]) vax 02/22/22 Recorded SARS-CoV-2 (COVID-19) mRNA BNT-162b2 [...] Note: VIS GIVEN-DATED 05/30/11 2Result Comment: LOT [id number] EXP 04 MAY 2010 3Admin Note: VIS [...] 04/24/22 9:05:00 EDT, Route to Pharmacy Electronically, [facility], Partial fill upon patient request if the prescription is for a schedule II opio... Start Date: 04/24/22 Status: Ordered ammonium lactate 5% topical lotion 1 application, Topically, 2 times a day, # 240 Gm, 0 Refills, Maintenance, 05/01/22 12:34:00 EDT, Lotion, [facility]/pharmacy #[id number], Partial fill upon patient request if the prescription is for a schedule II opioid drug., 1 application Topically 2 times a da... Start Date: 05/01/22 Stop Date: 05/31/22 Status: Ordered aspirin 81 mg oral delayed release tablet 81 mg, By Mouth, Daily, # 30 tablet, Refills 5, Tot. Refills 5, Maintenance, 05/13/22 16:40:00 EDT,Route to Pharmacy Electronically, [facility] Partial fill upon patient request if the prescription is for a schedule II opioid drug.,... Start Date: 05/13/22 Stop Date: 11/09/22 Status: Ordered atorvastatin 40 mg oral tablet 1 tablet = 40 mg, By Mouth, Daily, # 90 tablet, 2 Refills, Maintenance, 04/24/22 9:41:00 EDT, Tablet, [facility]., Partial fill upon patient request if the [...] 07/26/22 16:13:00 EDT, Route to Pharmacy Electronically, [facility]/pharmacy #[id number], Partial fill upon patient request if the prescription is for a schedule II opi... Start Date: 07/26/22 Stop Date: 01/22/23 Status: Ordered Colace sodium 100 mg oral capsule 100 mg, 1, capsule, By Mouth, 2 times a day, PRN, # 60 capsule, Refills 0, Tot. Refills 0, Maintenance, for constipation, 03/16/22 14:30:00 EDT, Route to Pharmacy Electronically, [facility], Partial fill upon patient request [...] 07/07/22 15:52:00 EDT, Route to Pharmacy Electronically, [facility], Partial fill upon patient request [...] 6 Refills, Soft Stop, 08/01/22 16:09:00EDT, Solution, [facility], Partial fill upon patient request if the prescription isfor a schedule II opioid drug., 169, cm, 08/01/22 1... Start Date: 08/01/22 Stop Date: 04/22/24 Status: Ordered lisinopril 10 mg oral tablet 10 mg, 1, tablet, By Mouth, Daily, # 90 tablet, Refills 4, Tot. Refills 4, Maintenance, 07/12/22 10:12:00 EDT, Route to Pharmacy Electronically, [facility] #[id number], Partial fill upon patientrequest if the prescription is for a schedule II op... Start Date: 07/12/22 Stop Date: 10/05/23 Status: Ordered NovoLOG FlexPen 100 units/mL injectable solution = 20 units, Subcutaneous Injection, 3 times a day before meals, INJECT 20 UNITS INTO SKIN THREE TIMES DAILY BEFORE A MEAL, # 15 mL, 10 Refills, Maintenance, 08/01/22 16:09:00 EDT, [facility]., 169, cm, 08/01/22 14:14:00 EDT, Height, 104... [...] Acute 09/11/22 16:30:00 EST, 08/28/22 16:30:00 EDT, [facility]/pharmacy #[id number], Partial fill upon patient request [...] 04/24/22 9:03:00 EDT, Route to Pharmacy Electronically, [facility], Partial fill upon patient request if the prescription is for a schedule II opio... Start Date: 04/24/22 Status: Ordered ProAir HFA 90 mcg/inh inhalation aerosol 1 puffs, Inhalation, Every 4 hours, PRN as needed for wheezing, # 18 Gm, 0 Refills, Maintenance, 04/18/22 9:51:00 EDT, Aerosol, [facility], Partial fill upon patient request [...] 0 Refills, Maintenance, 03/09/22 14:21:00 EDT, Gel, [facility], Partial fill upon patient request if the p... Start Date: 03/09/22 Status: Ordered traZODone 300 mg oral tablet 1 tablet = 300 mg, By Mouth, Daily at bedtime Start Date: 03/03/22 Status: Ordered Trulicity Pen 4.5 mg/0.5 mL subcutaneous solution = 0.5 mL, Subcutaneous Injection, Every week, rotate injection sites, # 6 mL, 4 Refills, Maintenance, 07/19/22 10:42:00 EDT, Solution, [id number], Partial fill upon patient request if the prescription is for a schedule II opioid drug.... Start Date: 07/19/22 Status: Ordered Tylenol 8 Hour 650 mg oral tablet, extended release 2 tablet = 1,300 mg, By Mouth, Every 8 hours, PRN as needed for pain, # 24 tablet, 0 Refills, Maintenance, 04/24/22 9:43:00 EDT, ER Tablet, [facility]., Partial fill upon patient request if the prescription is for a schedule II opioid d... Start Date: 04/24/22 Status: Ordered Ventolin HFA 108 mcg/inh inhalation aerosol with adapter 2 puffs, Inhalation, Every 6 hours, PRN Wheezing/Shortness of Breath, # 8 Gm, 1 Refills, Maintenance, 05/30/22 10:56:00 EDT, [facility]., Partial fill upon patient request if the [...] Obese class II Confirmed Active [facility]- [facility] [phone] [facility] active care coordination Confirmed Active Peripheral vascular disease Confirmed Active Umbilical hernia Confirmed Active 1per 2017 and 2018 [facility] notes Social History Social History Type Response Smoking Status Never (less than 100 in lifetime) entered on: 09/03/19 Sex 1per pt Patient Care team information Personnel Name: Allegra Aguayo MD Address: Address: [address] [place] [address] [place], [place] [address]
--- OUTSIDE RECORDS SUMMARY | 2023-02-20 15:14 | XMS_ITS | Continuity of Care Document ---
Author Name Unknown Organization [facility] Address [address] [place] [address]- Care Team Providers Care Cardiovascular Surgical Tech Name Role Phone Olivier MOSHER, Allegra Primary Care Physician [place] [facility] [place](s[place] 07/20/22 - 08/19/22 [facility] [address] [place], [place] [address] Allergies, Adverse Reactions, Alerts Substance Reaction Severity Status ibuprofen ABD PAIN Active morphine Vomiting and itchy Active traMADol Itchy, Hives Active Immunizations Given and Recorded Vaccine Date Status Refusal Reason SARS-CoV-2 mRNA ([id number]) vax 02/22/22 Recorded SARS-CoV-2 (COVID-19) mRNA BNT-162b2 [...] Note: VIS GIVEN-DATED 05/30/11 2Result Comment: LOT [id number] EXP 04 MAY 2010 3Admin Note: VIS [...] 0 Refills, Maintenance, 05/01/22 12:34:00 EDT, Lotion, [facility]/pharmacy #[id number], Partial fill upon patient request if the prescription is for a schedule II opioid drug., 1 application Topically 2 times a da... Start Date: 05/01/22 Stop Date: 05/31/22 Status: Ordered aspirin 81 mg oral delayed release tablet 81 mg, By Mouth, Daily, # 30 tablet, Refills 5, Tot. Refills 5, Maintenance, 05/13/22 16:40:00 EDT,Route to Pharmacy Electronically, [facility]., Partial fill upon patient request if the prescription is for a schedule II opioid drug.,... Start Date: 05/13/22 Stop Date: 11/09/22 Status: Ordered atorvastatin 40 mg oral tablet 1 tablet = 40 mg, By Mouth, Daily, # 90 tablet, 2 Refills, Maintenance, 04/24/22 9:41:00 EDT, Tablet, [facility]., Partial fill upon patient request if [...] [id number], Partial fill upon [...] 07/07/22 15:52:00 EDT, Route to Pharmacy Electronically, [facility], [...] 6 Refills, Soft Stop, 08/01/22 16:09:00EDT, Solution, [facility], Partial fill upon patient request if the prescription isfor a schedule II opioid drug., 169, cm, 08/01/22 1... Start Date: 08/01/22 Stop Date: 04/22/24 Status: Ordered lisinopril 10 mg oral tablet 10 mg, 1, tablet, By Mouth, Daily, # 90 tablet, Refills 4, Tot. Refills 4, Maintenance, 07/12/22 10:12:00 EDT, Route to Pharmacy Electronically, [facility] #[id number], Partial fill upon patientrequest if the prescription is for a schedule II op... Start Date: 07/12/22 Stop Date: 10/05/23 Status: Ordered NovoLOG FlexPen 100 units/mL injectable solution = 20 units, Subcutaneous Injection, 3 times a day before meals, INJECT 20 UNITS INTO SKIN THREE TIMES DAILY BEFORE A MEAL, # 15 mL, 10 Refills, Maintenance, 08/01/22 16:09:00 EDT, [facility]., 169, cm, 08/01/22 14:14:00 EDT, Height, [...] Acute 08/25/22 8:51:00 EDT, 08/11/22 8:51:00 EDT, [facility]/pharmacy #[id number], Partial fill upon patient request [...] 0 Refills, Maintenance, 04/18/22 9:51:00 EDT, Aerosol, [facility], Partial fill upon patient request [...] 0 Refills, Maintenance, 03/09/22 14:21:00 EDT, Gel, [facility], Partial fill upon patient request if the p... Start Date: 03/09/22 Status: Ordered traZODone 300 mg oral tablet 1 tablet = 300 mg, By Mouth, Daily at bedtime Start Date: 03/03/22 Status: Ordered Trulicity Pen 4.5 mg/0.5 mL subcutaneous solution = 0.5 mL, Subcutaneous Injection, Every week, rotate injection sites, # 6 mL, 4 Refills, Maintenance, 07/19/22 10:42:00 EDT, Solution, [facility] #[id number], Partial fill upon patient request if the prescription is for a schedule II opioid drug.... Start Date: 07/19/22 Status: Ordered Tylenol 8 Hour 650 mg oral tablet, extended release 2 tablet = 1,300 mg, By Mouth, Every 8 hours, PRN as needed for pain, # 24 tablet, 0 Refills, Maintenance, 04/24/22 9:43:00 EDT, ER Tablet, [facility], Partial fill upon patient [...] Obese class II Confirmed Active BHN/CCA/CP- [facility] [phone] alf active care coordination Confirmed Active Peripheral vascular disease Confirmed Active Umbilical hernia Confirmed Active 1per 2017 and 2019 [facility] notes Social History Social History Type Response Smoking Status Never (less than 100 in lifetime) entered on: 09/03/19 Sex 1per pt Patient Care team information Personnel Name: Allegra Aguayo MD Address: Address: [address] [place] [address]
--- OUTSIDE RECORDS SUMMARY | 2023-02-20 15:14 | XMS_ITS | Continuity of Care Document ---
Author Name Unknown Organization [facility] Address [address] [place] [address]- Care Team Providers Care Threading Machine Setter Name Role Phone Allegra Aguayo MD Primary Care Physician [phone] [facility] [place] Date(s): 08/28/22 - 09/27/22 [facility] [address] [place] [address]- Allergies, Adverse Reactions, Alerts Substance Reaction Severity Status ibuprofen ABD PAIN Active morphine Vomiting and itchy Active traMADol Itchy, Hives Active Immunizations Given and Recorded Vaccine Date Status Refusal Reason SARS-CoV-2 mRNA ([id number]) vax 02/22/22 Recorded SARS-CoV-2 (COVID-19) mRNA BNT-162b2 [...] Note: VIS GIVEN-DATED 05/30/11 2Result Comment: LOT [id number] EXP 04 MAY 2010 3Admin Note: VIS [...] 09/12/22 13:18:00 EST, Route to Pharmacy Electronically, [facility]/pharmacy #[id number], Partial fill upon patient req... Start Date: 09/12/22 Stop Date: 10/12/22 Status: Ordered Aerochamber 1 units, Inhalation, 4 [...] 04/24/22 9:05:00 EDT, Route to Pharmacy Electronically, [facility], Partial fill upon patient request if the prescription is for a schedule II opio... Start Date: 04/24/22 Status: Ordered ammonium lactate 5% topical lotion 1 application, Topically, 2 times a day, # 240 Gm, 0 Refills, Maintenance, 05/01/22 12:34:00 EDT, Lotion, [facility]/pharmacy #[id number], [...] Maintenance, 05/13/22 16:40:00 EDT,Route to Pharmacy Electronically, [facility], Partial fill upon patient request if the prescription is for a schedule II opioid drug.,... Start Date: 05/13/22 Stop Date: 11/09/22 Status: Ordered atorvastatin 40 mg oral tablet 1 tablet = 40 mg, By Mouth, Daily, # 90 tablet, 2 Refills, Maintenance, 04/24/22 9:41:00 EDT, Tablet, [facility], Partial fill upon patient request [...] 07/26/22 16:13:00 EDT, [id number] Partial fill upon patient request if the prescription is for a schedule II opi... Start Date: 07/26/22 Stop Date: 01/22/23 Status: Ordered Colace sodium 100 mg oral capsule 100 mg, 1, capsule, By Mouth, 2 times a day, PRN, # 60 capsule, Refills 0, Tot. Refills 0, Maintenance, for constipation, 03/16/22 14:30:00 EDT, Route to Pharmacy Electronically, [facility], Partial fill upon patient request [...] Refills, Maintenance, 09/21/22 11:57:00 EST, Tablet, [facility]/pharmacy [...] 07/07/22 15:52:00 EDT, Route to Pharmacy Electronically, [facility], Partial fill upon patient request if the prescription is for a schedule II opi... Start Date: 07/07/22 Status: Ordered Insulin Syringe, BD Ultra-Fine 0.5 cc 31 G x 8 mm (03/20in) See Instructions, # 100 each, Refills 3, [...] 6 Refills, Soft Stop, 08/01/22 16:09:00EDT, Solution, [facility], Partial fill upon patient request if the prescription isfor a schedule II opioid drug., 169, cm, 08/01/22 1... Start Date: 08/01/22 Stop Date: 04/22/24 Status: Ordered Lasix 20 mg oral tablet 1, capsule, By Mouth, Once, take one pill daily for 3 days, # 3 tablet, Refills 0, Tot. Refills 0, Soft Stop, 09/20/22 11:19:00 EST, [id number] Partial fillupon patient request if the prescription is for a s... Start Date: 09/20/22 Status: Ordered levoFLOXacin 250 mg oral tablet 1 tablet = 250 mg, By Mouth, Every 24 hours, # 14 tablet, 0 Refills, Maintenance, 09/20/22 11:28:00EST, Tablet, [facility]/pharmacy [...] 07/12/22 10:12:00 EDT, Route to Pharmacy Electronically, [facility] #[id number], Partial fill upon patientrequest if the prescription is for a schedule II op... Start Date: 07/12/22 Stop Date: 10/05/23 Status: Ordered NovoLOG FlexPen 100 units/mL injectable solution = 20 units, Subcutaneous Injection, 3 times a day before meals, INJECT 20 UNITS INTO SKIN THREE TIMES DAILY BEFORE A MEAL, # 15 mL, 10 Refills, Maintenance, 08/01/22 16:09:00 EDT, [facility], 169, cm, 08/01/22 14:14:00 EDT, Height, [...] days, # 14 tablet, 0 Refills, Acute 10/04/22 15:20:00 EST, 09/27/22 15:20:00 EST, Tablet, [facility]/pharmacy #[id number], Partial fill upon patient request if the prescription is for a schedule II opioid drug., 16... Start Date: 09/27/22 Stop Date: 10/04/22 Status: Ordered PARoxetine 40 mg oral tablet 40 mg, 1, tablet, By Mouth, Daily, Refills 0, Maintenance, 01/11/22 9:43:00 EST Start Date: 01/11/22 Status: Ordered Plavix 75 mg oral tablet 75 mg, 1, tablet, By Mouth, Daily, # 30 tablet, Refills 5, Tot. Refills 5, Maintenance, 04/24/22 9:03:00 EDT, Route to Pharmacy Electronically, [facility], Partial fill upon patient request if the prescription is for a schedule II opio... Start Date: 04/24/22 Status: Ordered ProAir HFA 90 mcg/inh inhalation aerosol 1 puffs, Inhalation, Every 4 hours, PRN as needed for wheezing, # 18 Gm, 0 Refills, Maintenance, 04/18/22 9:51:00 EDT, Aerosol, [facility], Partial fill upon patient request if the prescription is for a schedule II opioid drug., 1 puff... Start Date: 04/18/22 Status: Ordered Santyl 250 u/gm ointment 1 [...] 4 Refills, Maintenance, 07/19/22 10:42:00 EDT, Solution, [facility] #[id number], Partial fill upon patient request if the prescription is for a schedule II opioid drug.... Start Date: 07/19/22 Status: Ordered Ventolin HFA 108 mcg/inh inhalation aerosol with adapter 2 puffs, Inhalation, Every 6 hours, PRN Wheezing/Shortness of Breath, # 8 Gm, 1 Refills, Maintenance, 05/30/22 10:56:00 EDT, [facility], Partial fill upon patient request [...] Obese class II Confirmed Active BHN/CCA/CP- [facility] [phone] senior care active care coordination Confirmed Active Peripheral vascular disease - right SFA angioplasty/right great toe amputation 2021 Confirmed Active Umbilical hernia Confirmed Active 1per 2016 and 2018 [place] [facility] notes Social History Social History Type Response Smoking Status Never (less than 100 in lifetime) entered on: 09/03/19 Sex 1per pt Patient Care team information Care Team Personnel Name: Allegra Aguayo MD Position: [facility] Resident Member Role: PCP Address: Address: [address] [place] [address] Name: Vera Locke RN Position: S RN [...] Persons Name: MIKEY SEAY Address: home [address] [address] Name: MIKEY AYALA Address: home [address] [place] [address] Name: TANIA COPPOLA Address: home [address] [place] [id number] Name: TANIA MUÑIZ Address: [place] [address]
--- OUTSIDE RECORDS SUMMARY | 2023-02-20 15:14 | XMS_ITS | Continuity of Care Document ---
Author Name Unknown Organization [facility] Address [address] [place] [address]- Care Team Providers Care Packaging Line Attendant Name Role Phone Olivier MOSHER, Allegra Primary Care Physician [phone] Encounter [facility] [place] Date(s): 07/20/22 - 08/19/22 [facility] [address] [place] [address]- Allergies, Adverse Reactions, Alerts Substance Reaction Severity Status ibuprofen ABD PAIN Active morphine Vomiting and itchy Active traMADol Itchy, Hives Active Immunizations Given and Recorded Vaccine Date Status Refusal Reason SARS-CoV-2 mRNA (xufaucj-kvag-zrhir) vax 02/22/22 Recorded SARS-CoV-2 (COVID-19) mRNA BNT-162b2 [...] Note: VIS GIVEN-DATED 05/30/11 2Result Comment: LOT [id number] EXP 04 MAY 2010 3Admin Note: VIS [...] 04/24/22 9:05:00 EDT, Route to Pharmacy Electronically, [facility], Partial fill upon patient request if the prescription is for a schedule II opio... Start Date: 04/24/22 Status: Ordered ammonium lactate 5% topical lotion 1 application, Topically, 2 times a day, # 240 Gm, 0 Refills, Maintenance, 05/01/22 12:34:00 EDT, Lotion, [facility]/pharmacy #[id number], Partial fill upon patient request if the prescription is for a schedule II opioid drug., 1 application Topically 2 times a da... Start Date: 05/01/22 Stop Date: 05/31/22 Status: Ordered aspirin 81 mg oral delayed release tablet 81 mg, By Mouth, Daily, # 30 tablet, Refills 5, Tot. Refills 5, Maintenance, 05/13/22 16:40:00 EDT,Route to Pharmacy Electronically, [facility], Partial fill upon patient request if the prescription is for a schedule II opioid drug.,... Start Date: 05/13/22 Stop Date: 11/09/22 Status: Ordered atorvastatin 40 mg oral tablet 1 tablet = 40 mg, By Mouth, Daily, # 90 tablet, 2 Refills, Maintenance, 04/24/22 9:41:00 EDT, Tablet, [facility]., Partial fill upon [...] 07/26/22 16:13:00 EDT, [id number] Partial fill upon patient request if the prescription is for a schedule II opi... Start Date: 07/26/22 Stop Date: 01/22/23 Status: Ordered Colace sodium 100 mg oral capsule 100 mg, 1, capsule, By Mouth, 2 times a day, PRN, # 60 capsule, Refills 0, Tot. Refills 0, Maintenance, for constipation, 03/16/22 14:30:00 EDT, Route to Pharmacy Electronically, [facility], Partial fill upon patient request if the [...] 07/07/22 15:52:00 EDT, Route to Pharmacy Electronically, [facility], Partial fill upon patient request if the [...] 6 Refills, Soft Stop, 08/01/22 16:09:00EDT, Solution, [facility], Partial fill upon patient request if the prescription isfor a schedule II opioid drug., 169, cm, 08/01/22 1... Start Date: 08/01/22 Stop Date: 04/22/24 Status: Ordered lisinopril 10 mg oral tablet 10 mg, 1, tablet, By Mouth, Daily, # 90 tablet, Refills 4, Tot. Refills 4, Maintenance, 07/12/22 10:12:00 EDT, Route to Pharmacy Electronically, [facility] #[id number], Partial fill upon patientrequest if the prescription is for a schedule II op... Start Date: 07/12/22 Stop Date: 10/05/23 Status: Ordered NovoLOG FlexPen 100 units/mL injectable solution = 20 units, Subcutaneous Injection, 3 times a day before meals, INJECT 20 UNITS INTO SKIN THREE TIMES DAILY BEFORE A MEAL, # 15 mL, 10 Refills, Maintenance, 08/01/22 16:09:00 EDT, [facility]., 169, cm, 08/01/22 14:14:00 EDT, Height, [...] Acute 08/25/22 8:51:00 EDT, 08/11/22 8:51:00 EDT, [facility]/pharmacy #[id number], Partial fill upon patient request if [...] 04/24/22 9:03:00 EDT, Route to Pharmacy Electronically, [facility], Partial fill upon patient request if the prescription is for a schedule II opio... Start Date: 04/24/22 Status: Ordered ProAir HFA 90 mcg/inh inhalation aerosol 1 puffs, Inhalation, Every 4 hours, PRN as needed for wheezing, # 18 Gm, 0 Refills, Maintenance, 04/18/22 9:51:00 EDT, Aerosol, [facility], Partial fill upon patient request if the [...] 0 Refills, Maintenance, 03/09/22 14:21:00 EDT, Gel, [facility], Partial fill upon patient request if the p... Start Date: 03/09/22 Status: Ordered traZODone 300 mg oral tablet 1 tablet = 300 mg, By Mouth, Daily at bedtime Start Date: 03/03/22 Status: Ordered Trulicity Pen 4.5 mg/0.5 mL subcutaneous solution = 0.5 mL, Subcutaneous Injection, Every week, rotate injection sites, # 6 mL, 4 Refills, Maintenance, 07/19/22 10:42:00 EDT, Solution, [facility] #[id number], Partial fill upon patient request if the prescription is for a schedule II opioid drug.... Start Date: 07/19/22 Status: Ordered Tylenol 8 Hour 650 mg oral tablet, extended release 2 tablet = 1,300 mg, By Mouth, Every 8 hours, PRN as needed for pain, # 24 tablet, 0 Refills, Maintenance, 04/24/22 9:43:00 EDT, ER Tablet, [facility]., Partial fill upon patient request if the prescription is for a schedule II opioid d... Start Date: 04/24/22 Status: Ordered Ventolin HFA 108 mcg/inh inhalation aerosol with adapter 2 puffs, Inhalation, Every 6 hours, PRN Wheezing/Shortness of Breath, # 8 Gm, 1 Refills, Maintenance, 05/30/22 10:56:00 EDT, [facility], Partial fill upon patient request if the [...] Obese class II Confirmed Active BHN/CCA/CP- [facility] [phone] [facility] active care coordination Confirmed Active Peripheral vascular disease Confirmed Active Umbilical hernia Confirmed Active 1per 2016 and 2018 [facility] notes Social History Social History Type Response Smoking Status Never (less than 100 in lifetime) entered on: 09/03/19 Sex 1per pt Patient Care team information Personnel Name: Allegra Aguayo MD Address: Address: [address] [place] [address] [place], [place] [address]
--- OUTSIDE RECORDS SUMMARY | 2023-02-20 15:14 | XMS_ITS | Continuity of Care Document ---
Author Name Unknown Organization [facility] Address [address] [place] [address]- Care Team Providers Care Soaking Pit Operator Name Role Phone Sangeetha MOSHER, Marcia Koroma Primary Care Physician [place] [facility] [place] 10[place]26[place] 12[place]18/20 [facility] [address] [place] [address]- Attending Physician: Luis F Rowland MD Admitting [...] Note: VIS GIVEN-DATED 05/30/11 2Result Comment: LOT [id number] EXP 04 MAY 2010 3Admin Note: VIS given Medications albuterol 90 mcg/inh inhalation powder 2 puffs, Inhalation, Every 6 hours, PRN as needed, # 1 each, 11 Refills, Maintenance, 12/08/20 11:02:00 EST, Powder, [facility] #[id number], 2 puffs Inhalation Every 6 hours,PRN:as needed, [...] 07/30/20 18:34:00 EDT, Route to Pharmacy Electronically, [email or web address] #[id number], 170, cm, 05/20/20 14:48:00 EDT, Height, 100.5, kg, 05/30/19 9:39:00 EDT, Dry... Start Date: 07/30/20 Stop Date: 07/25/21 Status: Ordered aspirin 81 mg oral delayed release tablet 81 mg, 1, tablet, By Mouth, Daily, # 30 tablet, Refills 11, Tot. Refills 11, Maintenance, 05/20/20 14:45:00 EDT, Route to Pharmacy Electronically, [facility] #[id number], 170, cm, 05/20/20 14:08:00 EDT, Height, 100.5, kg, 05/30/19 9:39:00 EDT, . Start Date: 05/20/20 Status: Ordered atorvastatin 10 mg oral tablet 1 tablet = 10 mg, By Mouth, Daily, # 30 tablet, 11 Refills, Maintenance, 05/20/20 14:46:00 EDT, [email or web address] #[id number], 170, cm, 05/20/20 14:08:00 EDT, Height, 100.5, [...] 0 Refills, Maintenance, 09/02/20 14:20:00 EDT, Ointment, [facility] #[id number], 1 application Topically 2 times a day, 170, cm, 05/20/20 14:48:00 EDT, Height, 100.5, kg, 05/30/19 9:39:00 EDT, Dry... Start Date: 09/02/20 Status: Ordered Insulin Syringe, BD Ultra-Fine 0.5 cc 31 G x 8 mm () See Instructions, for 30 days, # 150 each, Refills 5, Tot. Refills 5, Hard Stop 03/09/21 18:41:00 EDT, use as directed for Type 2 Diabetes Mellitus to admisiter insulin four times a day. Dx; E11.9, 09/10/20 18:41:00 EST, [facility]... Start Date: 09/10/20 Stop Date: 03/09/21 Status: Ordered Insulin Syringe, BD Ultra-Fine 0.5 cc 31 G x 8 mm () See Instructions, # 150 each, Refills 11, Tot. Refills 11, Maintenance, use as directed for Type 2 Diabetes Mellitus to admisiter insulin four times a day. Dx; E11.9, 05/15/21 15:10:00 EDT, pt was transferred to [facility], all meds left beh... Start Date: 05/15/21 Stop Date: 05/10/22 Status: Ordered Lantus 100 u/ml subcutaneous solution = 40 units, Subcutaneous Infusion, 2 times a day, # 15 mL, 3 Refills, Maintenance, 12/16/20 14:02:00 EST, [facility] #[id number], 170, cm, 05/20/20 14:48:00 EDT, Height, 100.5, kg, 05/30/19 9:39:00 EDT, Dry Weight Start Date: 12/16/20 Stop Date: 04/15/21 Status: Ordered lisinopril 40 mg oral tablet 1 tablet = 40 mg, By Mouth, Daily, # 90 tablet, 4 Refills, Maintenance, 02/03/20 12:39:00 EDT, Tablet, [facility] #[id number], 170, cm, 12/16/19 10:11:00 EST, Height, 100.5, [...] mL, 1 Refills, Maintenance, 12/17/20 13:06:00 EST, [email or web address] #[id number], 170, cm, 05/20/2014:48:00 EDT, Height, 100.5, kg, 05/30/19 9:39:00 E... Start Date: 12/17/20 Status: Ordered OXcarbazepine 300 mg oral tablet TK 1 T PO BID Start Date: 01/29/19 Status: Ordered PARoxetine 40 mg oral tablet TK 1 T PO HS Start Date: 01/29/19 Status: Ordered Pen [place], 31 G x 5 mm BD [...] Status: Ordered sitaGLIPtin 50 mg oral tablet 1 tablet = 50 mg, By Mouth, Daily, # 30 tablet, 11 Refills, Maintenance, 12/16/20 17:35:00 EST, Tablet, [facility] #[id number], Partial fill upon patient request if the prescription is for a schedule II opioid drug., 170, cm, 05/20/20 14:48:00 ED... Start Date: 12/16/20 Status: Ordered traZODone 300 mg oral tablet TK 1 T PO HS Start Date: 01/29/19 Status: Ordered triamcinolone 0.1% topical ointment 1 application, Topically, 2 times a day, apply a thin film to affected area, # 60 Gm, 0 Refills, Maintenance, 05/20/20 15:09:00 EDT, Ointment, [facility] #[id number], 1 application Topically 2 times a day,x14 days,Instr:apply a thin film; to aff... Start Date: 05/20/20 Stop Date: 06/03/20 Status: Ordered Trulicity Pen 1.5 mg/0.5 mL subcutaneous solution 0.5 mL = 1.5 mg, Subcutaneous Injection, Every week, for 30 days, # 2.5 mL, 5 Refills, Hard Stop 01/25/21 8:56:00 EDT, 07/29/20 8:56:00 EDT, Solution, [facility] #[id number], 170, cm, 05/20/20 14:48:00 EDT, Height, 100.5, kg, 05/30/19 9:39:00 EDT... Start Date: 07/29/20 Stop Date: 01/25/21 Status: Ordered Trulicity Pen 1.5 mg/0.5 mL subcutaneous solution 0.5 mL = 1.5 mg, Subcutaneous Injection, Every week, # 2.5 mL, 5 Refills, Maintenance, 01/25/21 8:56:00 EDT, Solution, [facility] #[id number], 170, cm, 05/20/20 14:48:00 EDT, Height, 100.5, kg, 05/30/19 9:39:00 EDT, Dry Weight Start Date: 01/25/21 Stop Date: 07/24/21 Status: Ordered Vraylar 3 mg oral capsule [...] Microalbuminuria(Confirmed) Active Morbid obesity(Confirmed) Active BHN/CCA/AUDRA-Mignon Peters [phone][facility] active care coordination(Confirmed) Active Peripheral vascular disease(Confirmed) Active Umbilical hernia(Confirmed) Active 1per 2016 and 2018 [facility] notes Social History Social History Type Response Smoking Status Never (less than 100 in lifetime) entered on: 09/03/19 Sex Female 1per pt
--- OUTSIDE RECORDS SUMMARY | 2023-02-20 15:14 | XMS_ITS | Continuity of Care Document ---
Author Name Unknown Organization [facility] Address [address] [place] [address]- Care Team Providers Care English Horn Player Name Role Phone Olivier MOSHER, Allegra Primary Care Physician Encounter [facility] [place] [facility] [id number] Date(s): 09/27/22 - 11/18/22 [facility] [address] [place] [address]- Attending Physician: Victor Hugo MOSHER, Aditi Kilgore Admitting Physician: Victor Hugo MOSHER, Aditi Kilgore Referring Physician: Victor Hugo MOSHER, Aditi Kilgore Allergies, Adverse Reactions, Alerts Substance Reaction Severity Status ibuprofen ABD PAIN Active morphine Vomiting and itchy Active traMADol Itchy, Hives Active Immunizations Given and Recorded Vaccine Date Status Refusal Reason SARS-CoV-2 mRNA ([id number]) vax 02/22/22 Recorded SARS-CoV-2 (COVID-19) mRNA BNT-162b2 [...] Note: VIS GIVEN-DATED 05/30/11 2Result Comment: LOT [id number] EXP 04 MAY 2010 3Admin Note: VIS [...] 04/24/22 9:05:00 EDT, Route to Pharmacy Electronically, [facility], Partial fill upon patient request if the prescription is for a schedule II opio... Start Date: 04/24/22 Status: Ordered ammonium lactate 5% topical lotion 1 application, Topically, 2 times a day, # 240 Gm, 0 Refills, Maintenance, 05/01/22 12:34:00 EDT, Lotion, [facility]/pharmacy #[id number], Partial fill upon patient request if the prescription is for a schedule II opioid drug., 1 application Topically 2 times a da... Start Date: 05/01/22 Stop Date: 05/31/22 Status: Ordered aspirin 81 mg oral delayed release tablet 81 mg, By Mouth, Daily, # 30 tablet, Refills 0, Tot. Refills 0, Maintenance, 11/09/22 16:40:00 EST,Route to Pharmacy Electronically, [facility]/pharmacy #[id number], Partial fill upon patient request if the prescription is for a schedule II opioid drug., 169, cm,... Start Date: 11/09/22 Stop Date: 12/09/22 Status: Ordered atorvastatin 40 mg oral tablet 1 tablet = 40 mg, By Mouth, Daily, # 90 tablet, 2 Refills, Maintenance, 04/24/22 9:41:00 EDT, Tablet, [facility], Partial fill upon patient request if [...] 07/26/22 16:13:00 EDT, Route to Pharmacy Electronically, [facility]/pharmacy #[id number], Partial fill upon patient request if the pres... Start Date: 07/26/22 Stop Date: 01/22/23 Status: Ordered carvedilol 25 mg oral tablet 25 mg, 1, tablet, By Mouth, 2 times a day, # 60 tablet, Refills 2, Tot. Refills 2, Maintenance, 01/22/23 16:13:00 EDT, Route to Pharmacy Electronically, [facility]/pharmacy #[id number], Partial fill upon patient request if the prescription is for a schedule II opi... Start Date: 01/22/23 Stop Date: 04/22/23 Status: Ordered Colace sodium 100 mg oral capsule 100 mg, 1, capsule, By Mouth, 2 times a day, PRN, # 60 capsule, Refills 0, Tot. Refills 0, Maintenance, for constipation, 03/16/22 14:30:00 EDT, Route to Pharmacy Electronically, [facility], Partial fill upon patient request if [...] 0 Refills, Maintenance, 09/21/22 11:57:00 EST, Tablet, [facility]/pharmacy #[id number], Partial fill upon patient request [...] 10/16/22 10:25:00 EST, Route to Pharmacy Electronically, [facility] #[id number], Partial fill upon patientrequest if the prescription [...] Refills, Soft Stop, 10/16/22 8:19:00 EST, Solution, [facility]/pharmacy #[id number], Partial fill upon patient request [...] 09/20/22 11:19:00 EST, Route to Pharmacy Electronically, [facility]/pharmacy #[id number], Partial fillupon patient request if the prescription is for a s... Start Date: 09/20/22 Status: Ordered levoFLOXacin 250 mg oral tablet 1 tablet = 250 mg, By Mouth, Every 24 hours, # 14 tablet, 0 Refills, Maintenance, 09/20/22 11:28:00EST, Tablet, [facility]/pharmacy #[id number], Partial fill upon patient request if the prescription is for a schedule II opioid drug., 169, cm, 09/20/22 9:22:00 EST... Start Date: 09/20/22 Stop Date: 10/04/22 Status: Ordered lisinopril 10 mg oral tablet 10 mg, 1, tablet, By Mouth, Daily, # 90 tablet, Refills 1, Tot. Refills 1, Maintenance, 10/16/22 10:24:00 EST, Route to Pharmacy Electronically, [facility] #[id number], Partial fill upon patientrequest if the prescription is for a schedule II op... Start Date: 10/16/22 Stop Date: 04/14/23 Status: Ordered NovoLOG FlexPen 100 units/mL injectable solution = 20 units, Subcutaneous Injection, 3 times a day before meals, INJECT 20 UNITS INTO SKIN THREE TIMES DAILY BEFORE A MEAL, # 15 mL, 10 Refills, Maintenance, 08/01/22 16:09:00 EDT, [facility]., 169, cm, 08/01/22 14:14:00 EDT, [...] mg, By Mouth, Every 12 hours, # 28 tablet, 0 Refills, Acute 12/01/22 13:41:00 EST, 11/17/22 11:38:00 EST, [facility]/pharmacy #[id number], Partial fill upon patient request if the prescription is for a schedule II opioid drug., 169, cm, 11/01/22 11:2... Start Date: 11/17/22 Stop Date: 12/01/22 Status: Ordered PARoxetine 40 mg oral tablet 40 mg, 1, tablet, By Mouth, Daily, Refills 0, Maintenance, 01/11/22 9:43:00 EST Start Date: 01/11/22 Status: Ordered Plavix 75 mg oral tablet 75 mg, 1, tablet, By Mouth, Daily, # 30 tablet, Refills 5, Tot. Refills 5, Maintenance, 04/24/22 9:03:00 EDT, Route to Pharmacy Electronically, [facility], Partial fill upon patient request if [...] 2 Refills, Maintenance, 10/16/22 13:14:00 EST, Solution, [facility]/pharmacy #[id number], Partial fill upon patient request if the prescription is for a schedule II opioid drug., 169, cm, 10/09/22 8:39... Start Date: 10/16/22 Status: Ordered Ventolin HFA 108 mcg/inh inhalation aerosol with adapter 1 puffs, Inhalation, Every 4 hours, PRN NEEDED FOR WHEEZING, # 18 Gm, 0 Refills, Maintenance, 11/02/22 8:15:00 EST, [facility] #[id number], 169, cm, 11/01/22 11:21:00 EST, Height, 103.42, [...] Active Morbid obesity Confirmed Active BHN/CCA/CP- [place] [phone] half-way active care coordination Confirmed Active Peripheral vascular disease - right SFA angioplasty/right great toe amputation 2021 Confirmed Active Severe obesity (BMI 35.0-39.9) with comorbidity Confirmed Active Umbilical hernia Confirmed Active 1per 2016 and 2018 [facility] notes Social History Social History Type Response Smoking Status Never (less than 100 in lifetime) entered on: 09/03/19 Sex 1per pt Patient Care team information Care Team Personnel Name: Allegra Aguayo MD Position: [facility] Resident Member Role: PCP Address: Address: [address] [place] [address] Adult [address] Name: Vera Locke RN Position: S RN Member Role: Primary Care Nurse Name: Baljit Martínez RN Position: [facility] ED RN W/OE and Tasks Member Role: [...] Persons Name: MIKEY SEAY Address: home [address] [address] [place] [address] Name: MIKEY AYALA Address: home [address] [place] [address] Name: TANIA COPPOLA Address: home [address] [place] [id number] Name: TANIA MUÑIZ Address: home [address] [place] [address]
--- OUTSIDE RECORDS SUMMARY | 2023-02-20 15:15 | XMS_ITS | Continuity of Care Document ---
Author Name Unknown Organization [facility] Address [address] [place] [address]- Care Team Providers Care Exercise Instruct Name Role Phone Josef MOSHER, Mamie Patterson Primary Care Physician [place]counter [facility] [place] [id number] Date(s): 12/22/21 - 01/27/22 [facility] [address] [place] [address]- Attending Physician: Not on Staff, Attending MD [...] Note: VIS GIVEN-DATED 05/30/11 2Result Comment: LOT [id number] EXP 04 MAY 2010 3Admin Note: VIS [...] 12/29/21 10:02:00 EST, Route to Pharmacy Electronically, [facility] #[id number], 170, cm, 07/28/21 10:50:00 EDT, Height Start Date: 12/29/21 Stop Date: 03/24/23 Status: Ordered atorvastatin 10 mg oral tablet 1 tablet, By Mouth, Daily, # 90 tablet, 1 Refills, Maintenance, 12/13/21 19:21:00 EST, [facility] #[id number], 170, cm, 07/28/21 10:50:00 EDT, Height Start [...] 12/29/21 10:02:00 EST, Route to Pharmacy Electronically, [facility] #[id number], Partial fill upon patientrequest if the prescription [...] tablet, 11 Refills, Maintenance, 12/29/21 10:02:00 EST, [facility] #[id number], resent - not recvd, 170, cm, 07/28/21 10:50:00 EDT, Height Start Date: 12/29/21 Status: Ordered Lantus 100 u/ml subcutaneous solution = 45 units, Subcutaneous Infusion, 2 times a day, changed from PEN, pt requesting vials, # 12 mL, 11 Refills, Maintenance, 01/11/22 9:45:00 EST, [facility] #[id number], Partial fill upon patientrequest if the prescription is for a schedule II op... Start Date: 01/11/22 Status: Ordered lidocaine 5% topical ointment 1 application, Topically, 3 times a day, wash hands thoroughly after application, prn pain, # 50 Gm, 0 Refills, Maintenance, 01/11/22 9:49:00 EST, Ointment, [facility] #[id number], Partial fill upon patient request if the prescription is for a sc... Start Date: 01/11/22 Status: Ordered lisinopril 40 mg oral tablet 1 tablet = 40 mg, By Mouth, Daily, # 90 tablet, 4 Refills, Maintenance, 07/20/21 9:25:00 EDT, Tablet, [facility] #[id number], 170, cm, 07/20/21 8:57:00 EDT, Height Start Date: 07/20/21 Stop Date: 10/13/22 Status: Ordered NovoLOG 100 units/mL injectable solution See Instructions, ADMINISTER 20 UNITS UNDER THE SKIN THREE TIMES DAILY BEFORE MEALS 90 DAY SUPPLY REQUESTED, # 30 mL, 2 Refills, [facility] #[id number], 170, cm, 07/28/21 10:50:00 EDT, Height Start [...] INJECTION SITES, # 2 mL, 0 Refills, [facility] #[id number], 170, cm, 07/28/21 10:50:00 EDT, Height Start Date: 01/10/22 Status: Ordered Ventolin HFA 108 mcg/inh inhalation aerosol with adapter 1 puffs, Inhalation, 4 times a day, PRN NEEDED FOR WHEEZING, # 18 Gm, 0 Refills, [facility] #[id number], 170, cm, 01/11/22 9:39:00 EST, Height Start [...] Active Obese class I(Confirmed) Active BHN/CCA/AUDRA-Mignon Peters [phone]/[facility] active care coordination(Confirmed) Active Peripheral vascular disease(Confirmed) Active Umbilical hernia(Confirmed) Active 1per 2017 and 2019 [facility] notes Social History Social History Type Response Smoking Status Never (less than 100 in lifetime) entered on: 09/03/19 Sex Female 1per pt
--- OUTSIDE RECORDS SUMMARY | 2023-02-20 15:15 | XMS_ITS | Continuity of Care Document ---
Author Name Unknown Organization [facility] Address [address] [place] [address]- Care Team Providers Care Supervisory Forester Name Role Phone Josef MOSHER, Mamie Patterson Primary Care Physician Encounter [facility] Date(s): 10/27/21 - 11/26/21 [facility] [address], [place] [address] Allergies, Adverse Reactions, Alerts Substance Reaction [...] Note: VIS GIVEN-DATED 05/30/11 2Result Comment: LOT [id number] EXP 04 MAY 2010 3Admin Note: VIS [...] 07/20/21 9:24:00 EDT, Route to Pharmacy Electronically, [email or web address] #[id number], 170, cm, 07/20/21 8:57:00 EDT, Height Start Date: 07/20/21 Stop Date: 10/13/22 Status: Ordered atorvastatin 10 mg oral tablet 1 tablet = 10 mg, By Mouth, Daily, # 90 tablet, 1 Refills, Maintenance, 05/05/21 10:09:00 EDT, [email or web address] #[id number], 170, cm, 12/21/20 9:18:00 EST, Height, 100.5, [...] 07/20/21 9:33:00 EDT, Route to Pharmacy Electronically, [email or web address] #[id number], Partial fill upon patient request if the [...] tablet, 11 Refills, Maintenance, 10/24/21 9:05:00 EST, [facility]., 170, cm, 07/28/21 10:50:00 EDT, Height Start Date: 10/24/21 Status: Ordered Januvia 50 mg oral tablet 1 tablet = 50 mg, By Mouth, Daily, dose decreased, # 30 tablet, 11 Refills, Maintenance, 09/20/21 13:40:00 EST, Tablet, [email or web address] #[id number], Partial fill upon patient request if the prescription is for a schedule II opioid drug., 170, cm, 07/07... Start Date: 09/20/21 Status: Ordered Lantus Solostar Pen 100 units/mL subcutaneous solution See Instructions, INJECT 45 UNITS UNDER THE SKIN TWICE DAILY., # 24 mL, 0 Refills, 10/21/21 7:36:00EST, [email or web address] #[id number], dose increase since 07/26, 170, cm, 07/28/21 10:50:00 EDT, Height Start Date: 10/21/21 Status: Ordered lisinopril 40 mg oral tablet 1 tablet = 40 mg, By Mouth, Daily, # 90 tablet, 4 Refills, Maintenance, 07/20/21 9:25:00 EDT, Tablet, [email or web address] #[id number], 170, cm, 07/20/21 8:57:00 EDT, Height Start Date: 07/20/21 Stop Date: 10/13/22 Status: Ordered Melatonin 5 mg oral tablet 0 Refills, Maintenance, 01/29/19 10:09:09 EDT Start Date: 01/29/19 Status: Ordered NovoLOG 100 units/mL subcutaneous solution See Instructions, 28 units Subcutaneous Infusion 3 times a day before meals dxE11.9, # 48 mL, 11 Refills, Maintenance, 08/26/21 13:13:00 EDT[facility] upon patient request if the prescription is for a schedule II opioid... Start Date: 08/26/21 Status: Ordered OXcarbazepine 300 mg oral tablet TK 1 T PO BID Start Date: 01/29/19 Status: Ordered PARoxetine 40 mg oral tablet TK 1 T PO HS Start Date: 01/29/19 Status: Ordered Pen [place], 31 G x 5 mm BD Ultra Fine III See Instructions, # 150 each, Refills 11, Tot. Refills 11, Maintenance, use to inject insulin up tofive times daily dx e11.9, 10/21/20 15:55:00 EST, Supply, 170, cm, 05/20/20 14:48:00 EDT, Height, 100.5, kg, 05/30/19 9:39:00 EDT, Dry Weight Start Date: 10/21/20 Status: Ordered Pen [place], 31 G x 5 mm BD Ultra [...] FOR 14 DAYS, # 15 Gm, 0 Refills,[facility] #[id number], 14, APPLY TOPICALLY TO THE AFFECTED AREA TWICE DAILY FOR 14 DAYS, 170,cm, 07/28/21 10:50:00 EDT, Height Start Date: 11/02/21 Status: Ordered Trulicity Pen 1.5 mg/0.5 mL subcutaneous solution See Instructions, ADMINISTER 1.5 MG UNDER THE SKIN EVERY WEEK, # 2 mL, 0 Refills, [email or web address] #[id number], 170, cm, 07/28/21 10:50:00 EDT, Height Start Date: 09/22/21 Status: Ordered Ventolin HFA 108 mcg/inh inhalation aerosol with adapter 1 puffs, Inhalation, 4 times a day, PRN for wheezing, # 8 Gm, 2 Refills, Maintenance, 09/22/21 11:41:00 EST, Aerosol, [facility] #[id number], Partial fill upon patient request if the [...] Microalbuminuria(Confirmed) Active Morbid obesity(Confirmed) Active BHN/CCA/AUDRA-Mignon Peters [phone]/Health skilled nursing active care coordination(Confirmed) Active Peripheral vascular disease(Confirmed) Active Umbilical hernia(Confirmed) Active 1per 2016 and 2018 [facility] notes Social History Social History Type Response Smoking Status Never (less than 100 in lifetime) entered on: 09/03/19 Sex Female 1per pt
--- OUTSIDE RECORDS SUMMARY | 2023-02-20 15:15 | XMS_ITS | Continuity of Care Document ---
Author Name Unknown Organization [facility] Address [address] [place] [address]- Care Team Providers Care Sill Worker Name Role Phone Sangeetha MOSHER, Marcia Koroma Primary Care Physician [place] [facility] [place](s[place] 06/18/20 - 07/18/[address] [address]- [facility] Attending Physician: Satish Whittington Admitting Physician: Satish Whittington Referring Physician: Satish Whittington Allergies, Adverse Reactions, Alerts Substance Reaction Severity [...] Note: VIS GIVEN-DATED 05/30/11 2Result Comment: LOT [id number] EXP 04 MAY 2010 3Admin Note: VIS [...] 02/03/20 12:39:00 EDT, Route to Pharmacy Electronically, [facility] #[id number], 170, cm, 12/16/19 10:11:00 EST, Height, 100.5, kg, 05/30/19 9:39:00 EDT, Dry... Start Date: 02/03/20 Stop Date: 01/28/21 Status: Ordered aspirin 81 mg oral delayed release tablet 81 mg, 1, tablet, By Mouth, Daily, # 30 tablet, Refills 11, Tot. Refills 11, Maintenance, 05/20/20 14:45:00 EDT, Route to Pharmacy Electronically, [facility] #[id number], 170, cm, 05/20/20 14:08:00 EDT, Height, 100.5, kg, 05/30/19 9:39:00 EDT, Start Date: 05/20/20 Status: Ordered atorvastatin 10 mg oral tablet 1 tablet = 10 mg, By Mouth, Daily, # 30 tablet, 11 Refills, Maintenance, 05/20/20 14:46:00 EDT, [facility] #[id number], 170, cm, 05/20/20 14:08:00 EDT, Height, 100.5, [...] 03/06/19 17:12:53 EDT, Route to Pharmacy Electronically, [id number], [facility] [id number] Start Date: 03/06/19 Status: Ordered Insulin Syringe, BD Ultra-Fine 0.5 cc 31 G x 8 mm (03/20in) See Instructions, # 150 each, Refills 11, Tot. Refills 11, Maintenance, use as directed for Type 2 Diabetes Mellitus to admisiter insulin four times a day. Dx; E11.9, 05/20/20 15:10:00 EDT, pt was transferred to [facility], all meds left beh... Start Date: 05/20/20 Stop Date: 05/15/21 Status: Ordered Lantus 100 u/ml subcutaneous solution = 40 units, Subcutaneous Infusion, 2 times a day, # 15 mL, 11 Refills, Maintenance, 04/28/20 11:50:00 EDT, [facility] #[id number], 170, cm, 04/02/20 13:31:00 EDT, Height, 100.5, kg, 05/30/19 9:39:00 EDT, Dry Weight Start Date: 04/28/20 Stop Date: 04/23/21 Status: Ordered lisinopril 40 mg oral tablet 1 tablet = 40 mg, By Mouth, Daily, # 90 tablet, 4 Refills, Maintenance, 02/03/20 12:39:00 EDT, Tablet, [facility] #[id number], 170, cm, 12/16/19 10:11:00 EST, Height, 100.5, kg, 05/30/19 9:39:00EDT, Dry Weight Start Date: 02/03/20 Stop Date: 04/28/21 Status: Ordered Melatonin 5 mg oral tablet 0 Refills, Maintenance, 01/29/19 10:09:09 EDT Start Date: 01/29/19 Status: Ordered NovoLOG 100 units/mL injectable solution = 20 units, Subcutaneous Infusion, 3 times a day before meals, replaces humalog, # 50 mL, 1 Refills, Maintenance, 02/09/20 16:58:00 EDT, [facility] #[id number], 170, cm, 12/16/19 10:11:00 EST, Height, 100.5, [...] 0 Refills, Maintenance, 05/20/20 15:09:00 EDT, Ointment, [email or web address] #[id number], 1 application Topically 2 times a day,x14 days,Instr:apply a thin film; to aff... Start Date: 05/20/20 Stop Date: 06/03/20 Status: Ordered Trulicity Pen 1.5 mg/0.5 mL subcutaneous solution 0.5 mL = 1.5 mg, Subcutaneous Injection, Every week, # 2.5 mL, 5 Refills, Maintenance, 02/03/20 10:19:00 EDT, Solution, [email or web address] #[id number], 170, cm, 12/16/19 10:11:00 EST, Height, 100.5, [...] Umbilical hernia(Confirmed) Active 1per 2016 and 2019 [facility] notes Social History Social History Type Response Smoking Status Never (less than 100 in lifetime) entered on: 09/03/19 Sex Female 1per pt
--- OUTSIDE RECORDS SUMMARY | 2023-02-20 15:15 | XMS_ITS | Continuity of Care Document ---
Author Name Unknown Organization [facility] Address [address] [place] [address]- Care Team Providers Care Farmhand Name Role Phone Allegra Aguayo MD Primary Care Physician Encounter [facility] Date(s): 10/16/22 - 11/15/22 [facility] [address] [place] [address]- Allergies, Adverse Reactions, Alerts Substance Reaction Severity Status ibuprofen ABD PAIN Active morphine Vomiting and itchy Active traMADol Itchy, Hives Active Immunizations Given and Recorded Vaccine Date Status Refusal Reason SARS-CoV-2 mRNA ([id number]) vax 02/22/22 Recorded SARS-CoV-2 (COVID-19) mRNA BNT-162b2 [...] Note: VIS GIVEN-DATED 05/30/11 2Result Comment: LOT [id number] EXP 04 MAY 2010 3Admin Note: VIS [...] 04/24/22 9:05:00 EDT, Route to Pharmacy Electronically, [facility], Partial fill upon patient request if the prescription is for a schedule II opio... Start Date: 04/24/22 Status: Ordered ammonium lactate 5% topical lotion 1 application, Topically, 2 times a day, # 240 Gm, 0 Refills, Maintenance, 05/01/22 12:34:00 EDT, Lotion, [facility]/pharmacy #[id number], Partial fill upon patient request if the prescription is for a schedule II opioid drug., 1 application Topically 2 times a da... Start Date: 05/01/22 Stop Date: 05/31/22 Status: Ordered aspirin 81 mg oral delayed release tablet 81 mg, By Mouth, Daily, # 30 tablet, Refills 0, Tot. Refills 0, Maintenance, 11/09/22 16:40:00 EST,Route to Pharmacy Electronically, [facility]/pharmacy #[id number], Partial fill upon patient request if the prescription is for a schedule II opioid drug., 169, cm,... Start Date: 11/09/22 Stop Date: 12/09/22 Status: Ordered atorvastatin 40 mg oral tablet 1 tablet = 40 mg, By Mouth, Daily, # 90 tablet, 2 Refills, Maintenance, 04/24/22 9:41:00 EDT, Tablet, [facility], Partial fill upon patient request [...] 16:13:00 EDT, Route to Pharmacy Electronically, [facility]/pharmacy #[id number], Partial fill upon patient request if the pres... Start Date: 07/26/22 Stop Date: 01/22/23 Status: Ordered carvedilol 25 mg oral tablet 25 mg, 1, tablet, By Mouth, 2 times a day, # 60 tablet, Refills 2, Tot. Refills 2, Maintenance, 01/22/23 16:13:00 EDT, Route to Pharmacy Electronically, [facility]/pharmacy #[id number], Partial fill upon patient request if the prescription is for a schedule II opi... Start Date: 01/22/23 Stop Date: 04/22/23 Status: Ordered Colace sodium 100 mg oral capsule 100 mg, 1, capsule, By Mouth, 2 times a day, PRN, # 60 capsule, Refills 0, Tot. Refills 0, Maintenance, for constipation, 05/12/22 14:30:00 EDT, Route to Pharmacy Electronically, [facility], Partial fill upon patient request [...] Refills, Maintenance, 09/21/22 11:57:00 EST, Tablet, [facility]/pharmacy #[id number], Partial fill upon patient [...] 10/16/22 10:25:00 EST, Route to Pharmacy Electronically, [facility] #[id number], Partial fill upon patientrequest if the prescription [...] Soft Stop, 10/16/22 8:19:00 EST, Solution, [facility]/pharmacy #[id number], Partial fill upon patient [...] 11:19:00 EST, Route to Pharmacy Electronically, [facility]/pharmacy #[id number], Partial fillupon patient request if the prescription is for a s... Start Date: 09/20/22 Status: Ordered levoFLOXacin 250 mg oral tablet 1 tablet = 250 mg, By Mouth, Every 24 hours, # 14 tablet, 0 Refills, Maintenance, 09/20/22 11:28:00EST, Tablet, [facility]/pharmacy #[id number], Partial fill upon patient request if the prescription is for a schedule II opioid drug., 169, cm, 09/20/22 9:22:00 EST... Start Date: 09/20/22 Stop Date: 10/04/22 Status: Ordered lisinopril 10 mg oral tablet 10 mg, 1, tablet, By Mouth, Daily, # 90 tablet, Refills 1, Tot. Refills 1, Maintenance, 10/16/22 10:24:00 EST, [id number], Partial fill upon patientrequest if the prescription is for a schedule II op... Start Date: 10/16/22 Stop Date: 04/14/23 Status: Ordered NovoLOG FlexPen 100 units/mL injectable solution = 20 units, Subcutaneous Injection, 3 times a day before meals, INJECT 20 UNITS INTO SKIN THREE TIMES DAILY BEFORE A MEAL, # 15 mL, 10 Refills, Maintenance, 08/01/22 16:09:00 EDT, [facility], 169, cm, 08/01/22 14:14:00 EDT, [...] 04/24/22 9:03:00 EDT, Route to Pharmacy Electronically, [facility], Partial fill upon patient request [...] Refills, Maintenance, 10/16/22 13:14:00 EST, Solution, [facility]/pharmacy #[id number], Partial fill upon patient request if the prescription is for a schedule II opioid drug., 169, cm, 10/09/22 8:39... Start Date: 10/16/22 Status: Ordered Ventolin HFA 108 mcg/inh inhalation aerosol with adapter 1 puffs, Inhalation, Every 4 hours, PRN NEEDED FOR WHEEZING, # 18 Gm, 0 Refills, Maintenance, 11/02/22 8:15:00 EST, [facility] #[id number], 169, cm, 11/01/22 11:21:00 EST, Height, 103.42, [...] Active Morbid obesity Confirmed Active BHN/CCA/CP- [facility] [id number] nursing home active care coordination Confirmed Active Peripheral vascular disease - right SFA angioplasty/right great toe amputation 2021 Confirmed Active Severe obesity (BMI 35.0-39.9) with comorbidity Confirmed Active Umbilical hernia Confirmed Active 1per 2017 and 2019 [facility] notes Social History Social History Type Response Smoking Status Never (less than 100 in lifetime) entered on: 09/03/19 Sex 1per pt Patient Care team information Care Team Personnel Name: Allegra Aguayo MD Position: [facility] Resident Member Role: PCP Address: Address: [address] [place] [id number] Name: Vera Locke RN Position: S RN [...] Persons Name: MIKEY SEAY Address: home [address] [address] Name: MIKEY AYALA Address: [address] [place] [address] Name: TANIA COPPOLA Address: home [address] [place] [address] Name: TANIA MUÑIZ Address: home [address] [place] [address]
--- OUTSIDE RECORDS SUMMARY | 2023-02-20 15:15 | XMS_ITS | Continuity of Care Document ---
Author Name Unknown Organization [facility] Address [address] [place] [address]- Care Team Providers Care Tutor Coordinator Name Role Phone ChristinaAntionejeni Meagan GEORGES Primary Care Physici an Encounter [facility] Date(s): 12/16/19 - 02/07/20 [facility] [address] [place] [address]- [facility] Attending Physician: Luis F Rowland MD Admitting [...] Note: VIS GIVEN-DATED 05/30/11 2Result Comment: LOT [id number] EXP 04 MAY 2010 3Admin Note: VIS [...] 02/03/20 12:39:00 EDT, Route to Pharmacy Electronically, [facility] #[id number], 170, cm, 12/16/19 10:11:00 EST, Height, 100.5, [...] 03/06/19 17:12:53 EDT, Route to Pharmacy Electronically, [id number], [facility] [id number] Start Date: 03/06/19 Status: Ordered insulin glargine 100 u/ml subcutaneous solution See Instructions, 40 units in the MORNING and 40 units AT BEDTIME Subcutaneous Injection dx E11.9 Rotate injection sites, # 3 mL, 11 Refills, Maintenance, 02/03/20 12:39:00 EDT, Solution, [facility] #[id number], 170, cm, 12/16/19 10:11:00 EST,... Start Date: 02/03/20 Status: Ordered Insulin Syringe, BD Ultra-Fine 0.5 cc 31 G x 8 mm (5/16in) See Instructions, # 150 each, Refills 11, Tot. Refills 11, Maintenance, use as directed for Type 2 Diabetes Mellitus to admisiter insulin four times a day. Dx; E11.9, 05/13/19 13:22:55 EDT, pt [facility], all meds left beh... Start Date: 05/13/19 Stop Date: 05/07/20 Status: Ordered lisinopril 40 mg oral tablet 1 tablet = 40 mg, By Mouth, Daily, # 90 tablet, 4 Refills, Maintenance, 02/03/20 12:39:00 EDT, Tablet, [facility] #[id number], 170, cm, 12/16/19 10:11:00 EST, Height, 100.5, kg, 05/30/19 9:39:00EDT, Dry Weight Start Date: 02/03/20 Stop Date: 04/28/21 Status: Ordered Melatonin 5 mg oral tablet 0 Refills, Maintenance, 01/29/19 10:09:09 EDT Start Date: 01/29/19 Status: Ordered meloxicam 5 mg oral capsule 1 capsule = 5 mg, By Mouth, Daily, # 5 capsule, 0 Refills, Maintenance, 02/03/20 10:30:00 EDT, Capsule, [facility] #[id number], 170, cm, 12/16/19 10:11:00 EST, Height, 100.5, kg, 05/30/19 9:39:00 EDT, Dry Weight Start Date: 02/03/20 Stop Date: 02/08/20 Status: Ordered NovoLOG 100 units/mL injectable solution = 20 units, Subcutaneous Infusion, 3 times a day before meals, replaces humalog, # 3 mL, 11 Refills, Maintenance, 02/03/20 12:39:00 EDT, [facility] #[id number], 170, cm, 12/16/19 10:11:00 EST, Height, 100.5, kg, 05/30/19 9:39:00 EDT, Dry Weight Start Date: 02/03/20 Status: Ordered OXcarbazepine 300 mg oral tablet TK 1 T PO BID Start Date: 01/29/19 Status: Ordered PARoxetine 40 mg oral tablet TK 1 T PO HS Start Date: 01/29/19 Status: Ordered Pen [place], 31 G x 5 mm BD Ultra [...] 5 Refills, Maintenance, 02/03/20 10:19:00 EDT, [id number], 170, cm, 12/16/19 10:11:00 EST, Height, 100.5, [...] Umbilical hernia(Confirmed) Active 1per 2017 and 2019 [facility] notes Social History Social History Type Response Smoking Status Never (less than 100 in lifetime) entered on: 09/03/19 Sex Female 1per pt
--- OUTSIDE RECORDS SUMMARY | 2023-02-20 15:15 | XMS_ITS | Continuity of Care Document ---
Author Name Unknown Organization [facility] Address [address] [place] [address]- Care Team Providers Care Clerical Specialist Name Role Phone Olivier MOSHER, Allegra Primary Care Physician Encounter [facility] Date(s): 12/14/22 - 02/14/23 [facility] [address] [place] [address]- Attending Physician: Ashvin DONIS, Zahra Bennett Admitting Physician: Ashvin DONIS, Zahra Bennett Allergies, Adverse Reactions, Alerts Substance Reaction Severity Status ibuprofen ABD PAIN Active morphine Vomiting and itchy Active traMADol Itchy, Hives Active Immunizations Given and Recorded Vaccine Date Status Refusal Reason SARS-CoV-2 mRNA ([id number]) vax 02/22/22 Recorded SARS-CoV-2 (COVID-19) mRNA BNT-162b2 [...] Note: VIS GIVEN-DATED 05/30/11 2Result Comment: LOT [id number] EXP 04 MAY 2010 3Admin Note: VIS [...] 01/23/23 10:18:00 EDT, Route to Pharmacy Electronically, [id number], [...] 3 Refills, Maintenance, 01/23/23 10:17:00 EDT, Tablet, [id number], Partial fill upon patient [...] Dry Weight Start Date: 09/01/22 Status: Ordered Flovent HFA 110 mcg/inh inhalation aerosol 2 puffs, Inhalation, 2 times a day, # 1 each, 0 Refills, Maintenance, 02/14/23 11:54:00 EDT, Aerosol, [facility]/pharmacy #[id number], Partial fill upon patient request if the prescription is for a schedule II opioid drug., 169, cm, 02/14/23 10:47:00 EDT, Height,... Start Date: 02/14/23 Stop Date: 03/16/23 Status: Ordered Freestyle Lite Test Strips See [...] 10/16/22 10:25:00 EST, Route to Pharmacy Electronically, [facility] #[id number], Partial fill upon patientrequest if the prescription is for a schedule II op... Start Date: 10/16/22 Status: Ordered Lantus Solostar Pen 100 units/mL subcutaneous solution See Instructions, Subcutaneous Injection, 30 units sc bid dx E11.9 dose increased 01/23/23, # 15 mL,11 Refills, Maintenance, 01/23/23 9:43:00 EDT, [id number], Partial fill upon patient request if the prescription is for a schedule II opioid d... Start Date: 01/23/23 Stop Date: 01/18/24 Status: Ordered lisinopril 10 mg oral tablet 10 mg, 1, tablet, By Mouth, Daily, # 90 tablet, Refills 2, Tot. Refills 2, Maintenance, 01/23/23 10:15:00 EDT, Route to Pharmacy Electronically, [facility]/pharmacy #[id number], Partial fill [...] tablet, 0 Refills, Maintenance, 01/29/23 16:57:00 EDT, [facility]/pharmacy #[id number], Partial fill upon patient request if the prescription is for a schedule II opioid drug., 169, cm, 01/23/23 13:31:00 EDT, Height... Start Date: 01/29/23 Status: Ordered PARoxetine 40 mg oral tablet 40 mg, 1, tablet, By Mouth, Daily, Refills 0, Maintenance, 01/11/22 9:43:00 EST Start Date: 01/11/22 Status: Ordered Pen [place], 31 G x 5 mm BD Ultra [...] 11 Refills, Maintenance, 01/23/23 9:42:00 EDT, Solution, [facility]/pharmacy #[id number], Partial fill [...] Active Morbid obesity Confirmed Active BHN/CCA/CP- [facility] [id number] [facility] active care coordination Confirmed Active Peripheral vascular disease - right SFA angioplasty/right great toe amputation 2021 Confirmed Active Severe obesity Confirmed Active Umbilical hernia Confirmed Active 1per 2016 and 2019 [facility] notes Social History Social History Type Response Smoking Status Never (less than 100 in lifetime) entered on: 09/03/19 Sex 1per pt Patient Care team information Care Team Personnel Name: Allegra Aguayo MD Position: [facility] Resident Member Role: PCP Address: Address: [address] [place] [address] Name: Baljit Martínez RN Position: [facility] RN Member Role: Primary Care Nurse Name: Sabine Guthrie RN Position: [facility] RN Member Role: Primary Care Nurse Name: Aditi Hernandez RN Position: S RN Member Role: Primary Care Nurse Name: Piyush Moore RN Position: S RN Member Role: Primary Care Nurse Name: Mis Vences RN Position: S RN Member Role: Primary Care Nurse Name: Angie Lopez RN Position: S RN Member Role: Primary Care Nurse Name: Lizzie Estrada RN Position: [facility] Onco RN Member Role: Primary Care Nurse Care Team Related Persons Name: MIKEY SEAY Address: [address] [address] Name: MIKEY AYALA Address: [address] [place] [address] Name: TANIA COPPOLA Address: home [address] [place] [id number] Name: TANIA MUÑIZ Address: home [address] [place] [id number]
--- OUTSIDE RECORDS SUMMARY | 2023-02-20 15:15 | XMS_ITS | Continuity of Care Document ---
Author Name Unknown Organization [facility] Address [address] [place] [address]- Care Team Providers Care Sales Support Specialist Name Role Phone Olivier MOSHER, Allegra Primary Care Physician [phone] Encounter [facility] [place] [id number] Date(s): 10/09/22 - 10/16/22 [facility] [address], [place] [address] Attending Physician: Ashvin DONIS, Zahra Bennett Admitting Physician: Ashvin DONIS, Zahra Bennett Allergies, Adverse Reactions, Alerts Substance Reaction Severity Status ibuprofen ABD PAIN Active morphine Vomiting and itchy Active traMADol Itchy, Hives Active Immunizations Given and Recorded Vaccine Date Status Refusal Reason SARS-CoV-2 mRNA (nnrensr-pecj-lbaux) vax 02/22/22 Recorded SARS-CoV-2 (COVID-19) mRNA BNT-162b2 [...] Note: VIS GIVEN-DATED 05/30/11 2Result Comment: LOT [id number] EXP 04 MAY 2010 3Admin Note: VIS [...] 9:05:00 EDT, Route to Pharmacy Electronically, [facility], Partial fill upon patient request if the prescription is for a schedule II opio... Start Date: 04/24/22 Status: Ordered ammonium lactate 5% topical lotion 1 application, Topically, 2 times a day, # 240 Gm, 0 Refills, Maintenance, 05/01/22 12:34:00 EDT, Lotion, [facility]/pharmacy #[id number], Partial fill upon patient request if the prescription is for a schedule II opioid drug., 1 application Topically 2 times a da... Start Date: 05/01/22 Stop Date: 05/31/22 Status: Ordered aspirin 81 mg oral delayed release tablet 81 mg, By Mouth, Daily, # 30 tablet, Refills 5, Tot. Refills 5, Maintenance, 05/13/22 16:40:00 EDT,Route to Pharmacy Electronically, [facility], Partial fill upon patient request if the prescription is for a schedule II opioid drug.,... Start Date: 05/13/22 Stop Date: 11/09/22 Status: Ordered atorvastatin 40 mg oral tablet 1 tablet = 40 mg, By Mouth, Daily, # 90 tablet, 2 Refills, Maintenance, 04/24/22 9:41:00 EDT, Tablet, [facility], Partial fill upon patient [...] 16:13:00 EDT, Route to Pharmacy Electronically, [facility]/pharmacy #[id number], Partial fill upon patient request if the prescription is for a schedule II opi... Start Date: 07/26/22 Stop Date: 01/22/23 Status: Ordered Colace sodium 100 mg oral capsule 100 mg, 1, capsule, By Mouth, 2 times a day, PRN, # 60 capsule, Refills 0, Tot. Refills 0, Maintenance, for constipation, 03/16/22 14:30:00 EDT, Route to Pharmacy Electronically, [facility], Partial fill upon patient [...] Refills, Maintenance, 09/21/22 11:57:00 EST, Tablet, [facility]/pharmacy #[id number], Partial fill upon patient request if the [...] 10/16/22 10:25:00 EST, Route to Pharmacy Electronically, [facility] #[id number], Partial fill upon patientrequest if the prescription [...] Refills, Soft Stop, 10/16/22 8:19:00 EST, Solution, [facility]/pharmacy #[id number], Partial fill upon patient request [...] 11:19:00 EST, Route to Pharmacy Electronically, [facility]/pharmacy #[id number], Partial fillupon patient request if the prescription is for a s... Start Date: 09/20/22 Status: Ordered levoFLOXacin 250 mg oral tablet 1 tablet = 250 mg, By Mouth, Every 24 hours, # 14 tablet, 0 Refills, Maintenance, 09/20/22 11:28:00EST, Tablet, [facility]/pharmacy #[id number], Partial fill upon patient request if the prescription is for a schedule II opioid drug., 169, cm, 09/20/22 9:22:00 EST... Start Date: 09/20/22 Stop Date: 10/04/22 Status: Ordered lisinopril 10 mg oral tablet 10 mg, 1, tablet, By Mouth, Daily, # 90 tablet, Refills 1, Tot. Refills 1, Maintenance, 10/16/22 10:24:00 EST, Route to Pharmacy Electronically, [facility] #[id number], Partial fill upon patientrequest if the prescription is for a schedule II op... Start Date: 10/16/22 Stop Date: 04/14/23 Status: Ordered NovoLOG FlexPen 100 units/mL injectable solution = 20 units, Subcutaneous Injection, 3 times a day before meals, INJECT 20 UNITS INTO SKIN THREE TIMES DAILY BEFORE A MEAL, # 15 mL, 10 Refills, Maintenance, 08/01/22 16:09:00 EDT, [facility]., 169, cm, 08/01/22 14:14:00 EDT, [...] Acute 10/24/22 15:48:00 EST, 10/10/22 15:48:00 EST, [facility]/pharmacy #[id number], Partial fill upon patient request if the [...] 9:03:00 EDT, Route to Pharmacy Electronically, [facility], Partial fill upon patient request if the prescription is for a schedule II opio... Start Date: 04/24/22 Status: Ordered ProAir HFA 90 mcg/inh inhalation aerosol 1 puffs, Inhalation, Every 4 hours, PRN as needed for wheezing, # 18 Gm, 0 Refills, Maintenance, 10/03/22 6:38:00 EST, Aerosol, [facility] #[id number], Partial fill upon patient request if the [...] 2 Refills, Maintenance, 10/16/22 13:14:00 EST, Solution, [facility]/pharmacy #[id number], Partial fill upon patient request if the prescription is for a schedule II opioid drug., 169, cm, 10/09/22 8:39... Start Date: 10/16/22 Status: Ordered Ventolin HFA 108 mcg/inh inhalation aerosol with adapter 2 puffs, Inhalation, Every 6 hours, PRN Wheezing/Shortness of Breath, # 8 Gm, 1 Refills, Maintenance, 05/30/22 10:56:00 EDT, [facility], Partial fill upon patient [...] Obese class II Confirmed Active BHN/CCA/CP- Angle [phone] long term active care coordination Confirmed Active Peripheral vascular disease - right SFA angioplasty/right great toe amputation 2021 Confirmed Active Umbilical hernia Confirmed Active 1per 2016 and 2018 [facility] notes Vital Signs Most recent to oldest [Reference Range]: 1 Height 169 cm (10/09/22 8:39 AM) Weight 103.42 kg (10/09/22 8:39 AM) Oxygen Saturation [94-100 %] 97 % (10/09/22 8:39 AM) Pulse Rate [55-90 bpm] 85 bpm (10/09/22 8:39 AM) Body Mass Index [18.5-24.99 kg/m2] 36.21 kg/m2 *>HHI* (10/09/22 8:39 AM) Blood Pressure [90-138/55-84 mm Hg] 158/ 90mm Hg *H* (10/09/22 8:39 AM) Mode of Delivery (Oxygen) Room air (10/09/22 8:39 AM) Blood pressure sites Arm, left (10/09/22 8:39 AM) Dry Weight 103.42 kg (10/09/22 8:39 AM) Weight Obtained Via Patient/family state d (10/09/22 8:39 AM) Dry Weight Obtained Via Patient/family s tated (10/09/22 8:39 AM) Social History Social History Type Response Smoking Status Never (less than 100 in lifetime) entered on: 09/03/19 Sex 1per pt Note * Kobe Eldridge: PERFORM, SIGN, VERIFY Event Display: Patient Education/Instruction Authored Date: [id number] [facility] *[facility] [address] Clinical Summary Name SUZIE COPPOLA Age 46 Years 1975 PCP Allegra Aguayo MD PCP Visit Date 10/09/2022 08:24:00 Additional Instructions: Scheduled Appointments?? Future Appointments ?*[facility]??Lab??[id number] ?Phone:??--?Fax:??-- ?Appt. Date:??10/16/2022?9:30 AM ?Scheduled Provider:??Ultrasound Room 1 [facility] Follow-Up Instructions ?? Diagnosis Medications: Please continue your medications until treatment is completed or stopped by your provider. Discuss any questions related to medications with your provider. Medications to Continue with No Changes These medications were not printed or sent to your pharmacy Acetaminophen (acetaminophen 325 mg oral tablet) 2 tab(s) Oral every 4 hours as needed Pain , Mild for 30 Days. Refills: 0. Next Dose: Albuterol (ProAir HFA 90 mcg/inh inhalation aerosol) 1 puff(s) Inhalation every 4 hours as needed as needed for wheezing. Refills: 0. Next Dose: Albuterol (Ventolin HFA 108 mcg/inh inhalation aerosol with adapter) 2 puff(s) Inhalation every 6 hours as needed Wheezing/Shortness of Breath. Refills: 1. Next Dose: Amlodipine (amLODIPine 10 mg oral tablet) 1 tab(s) Oral Daily. Refills: 5. Next Dose: Ammonium Lactate 12% (ammonium lactate 5% topical lotion) 1 hernan Topically twice a day for 30 Days. Refills: 0. Next Dose: apixaban (Eliquis 5 mg oral tablet) 2 tab(s) Oral twice a day for 5 Days. Refills: 0. Next Dose: Aspirin (aspirin 81 mg oral delayed release tablet) 81 Milligram Oral Daily for 30 Days. Refills: 5. Next Dose: Atorvastatin (atorvastatin 40 mg oral tablet) 1 tab(s) Oral Daily. Refills: 2. Next Dose: Carvedilol (carvedilol 25 mg oral tablet) 1 tab(s) Oral twice a day for 30 Days. Refills: 5. Next Dose: Clopidogrel (Plavix 75 mg oral tablet) 1 tab(s) Oral Daily. Refills: 5. Next Dose: Collagenase Topical (Santyl 250 u/gm ointment) 1 hernan Topically Daily. uase as directed to right great and second toes. Refills: 1. Next Dose: Docusate (Colace sodium 100 mg oral capsule) 1 capsule Oral twice a day as needed for constipation.Refills: 0. Next Dose: dulaglutide (Trulicity Pen 4.5 mg/0.5 mL subcutaneous solution) 0.5 Milliliter Subcutaneous Injection every week. rotate injection sites. Refills: 4. Next Dose: Durable Medical Equipment (1/4 inch palin nugauze) use 2nd toe wound as directed. Refills: 1. Next Dose: Durable Medical Equipment (4 x 4 sterile gauze) please dispense 1 box of 4x4 sterile gauze for right toe infection ICD 10 L03.039, length of use 2 months. Refills: 0. Next Dose: Durable Medical Equipment (Aerochamber) 1 unit(s) Inhalation 4 times a day as needed Wheezing/Shortness of Breath. use with inhaler; DX: Asthma; J45.909. Refills: 0. Next Dose: Durable Medical Equipment (Alcohol Wipes) dx DM, on insulin. Refills: 5. Next Dose: Durable Medical Equipment (Blood Pressure Monitor) DX HTN, ICD E11.9. Refills: 0. Next Dose: Durable Medical Equipment (Darco front offloading shoe) dx: dfu. Refills: 0. Next Dose: Durable Medical Equipment (Freestyle Lite Test Strips) USE TO TEST 4 TIMES DAILY. Refills: 3. Next Dose: Durable Medical Equipment (Insulin Syringe, BD Ultra-Fine 0.5 cc 31 G x 8 mm (5/16in)) use as directed for Type 2 Diabetes Mellitus to admisiter insulin two times a day. Dx; E11.9. Refills: 3. Next Dose: Durable Medical Equipment (Offloading boot) Please fit patient Diagnosis: Diabetic foot infection ICD code E11. 621. Refills: 0. Next Dose: Durable Medical Equipment (wedge pillow) use to elevate right leg to control swelling. Refills: 0. Next Dose: Durable Medical Equipment (Wheel chair W/ Elevating foot rest) Length of need: 1 year Wt:103.42 kg Ht: 169. Refills: 0. Next Dose: Durable Medical Equipment (Wheelchair) please suppy wheel chair to patient to get around and keep weight off leg. Refills: 0. Next Dose: Furosemide (furosemide 20 mg oral tablet) 1 tab(s) Oral Daily. Refills: 5. Next Dose: Furosemide (Lasix 20 mg oral tablet) 1 capsule Oral once. take one pill daily for 3 days. Refills: 0. Next Dose: Insulin Aspart (NovoLOG FlexPen 100 units/mL injectable solution) 20 unit(s) Subcutaneous Injection3 times a day before meals for 90 Days. INJECT 20 UNITS INTO SKIN THREE TIMES DAILY BEFORE A MEAL. Refills: 10. Next Dose: Insulin Glargine (Lantus Solostar Pen 100 units/mL subcutaneous solution) 30 unit(s) Subcutaneous Injection twice a day for 90 Days. Refills: 6. Next Dose: Levofloxacin (levoFLOXacin 250 mg oral tablet) 1 tab(s) Oral every 24 hours for 14 Days. Refills: 0. Next Dose: Lisinopril (lisinopril 10 mg oral tablet) 1 tab(s) Oral Daily for 90 Days. Refills: 4. Next Dose: Miscellaneous Rx (D/armando Rx) Januvia has been discontinued. Refills: 0. Next Dose: Paroxetine (PARoxetine 40 mg oral tablet) 1 tab(s) Oral Daily. Next Dose: Trazodone (traZODone 300 mg oral tablet) 1 tab(s) Oral Daily at Bedtime. Next Dose: Allergy Info:?? traMADol; morphine; ibuprofen Medications Given This Visit Future Orders ?No future orders Vital Signs Height 169 cm Weight 103.42 kg BMI 36.21 kg/m2 Blood Pressure 158 mm Hg/90 mm Hg Temperature Pulse Rate 85 bpm Respiratory Rate 02 Sat Mode of Delivery 97 %/Room air You can now view a summary of your hospital visit from the comfort of your home through a free online portal called [facility]. [facility] is a website that allows you to securely view your medical information including discharge summary, medications and follow-up visits. ??You can alsosend a secure electronic message to your doctor???s office to request appointments, renew medications or just ask a question. You can enroll at [email or web address] or register during your next office visit. Disclaimer:?? The information provided is of a general nature and is intended to be used in conjunction with the recommendations and advice of your health care practitioner. ??Every effort has been made to ensure that the information provided is accurate and complete at the time it is provided to you however, as your needs change, or, as new ??information becomes available, different or additional instructions may be required. If you have questions, please consult with your primary care provider or pharmacist, as appropriate. ??This information is not intended to serve as substitution for assessment and evaluation by a qualified health care provider. If you do not have a primary care provider, you may find a [facility] provider by calling [facility] Link at [phone]. For information about the plan of care including goals and instructions for your diagnosis, please see the patient education orders section of this document. Patient Education Materials?? The content of this educational material or handout may have been modified, supplemented, or adapted from its original content and format to support your individualized medical care. Patient Care team information Care Team Personnel Name: Allegra Aguayo MD Position: [facility] Resident Member Role: PCP Address: Address: [address] [place] [address] Name: Vera Locke RN Position: S RN Member Role: Primary Care Nurse Name: Baljit Martínez RN Position: S RN Member Role: Primary Care Nurse Name: Sabine Guthrie RN Position: [facility] RN Member Role: Primary Care Nurse Name: Aditi Hernandez RN Position: S RN Member Role: Primary Care Nurse Name: Piyush Moore RN Position: [facility] RN Member Role: Primary Care Nurse Name: Mis Vences RN Position: [facility] RN Member Role: Primary Care Nurse Name: Angie Lopez RN Position: [facility] RN Member Role: Primary Care Nurse Name: Lizzie Estrada RN Position: [facility] RN Member Role: Primary Care Nurse Care Team Related Persons Name: MIKEY SEAY Address: home [address] [address] Name: MIKEY AYALA Address: home [address] [place] [address] Name: TANIA COPPOLA Address: home [address] [place] [address] Name: TANIA MUÑIZ Address: home [address] [place] [address]
--- OUTSIDE RECORDS SUMMARY | 2023-02-20 15:15 | XMS_ITS | Continuity of Care Document ---
Author Name Unknown Organization [facility] Address [address] [place] [address]- Care Team Providers Care Air Quality Technician Name Role Phone Josef MOSHER, Mamie Patterson Primary Care Physician [place] [facility] [place] 12/27/21 - 01/26/22 [facility] [address] [place] [address]- Allergies, Adverse Reactions, Alerts Substance Reaction Severity [...] Note: VIS GIVEN-DATED 05/30/11 2Result Comment: LOT [id number] EXP 04 MAY 2010 3Admin Note: VIS [...] 12/29/21 10:02:00 EST, Route to Pharmacy Electronically, [facility] #[id number], 170, cm, 07/28/21 10:50:00 EDT, Height Start Date: 12/29/21 Stop Date: 03/24/23 Status: Ordered atorvastatin 10 mg oral tablet 1 tablet, By Mouth, Daily, # 90 tablet, 1 Refills, Maintenance, 12/13/21 19:21:00 EST, [facility] #[id number], 170, cm, 07/28/21 10:50:00 EDT, Height Start [...] 12/29/21 10:02:00 EST, Route to Pharmacy Electronically, [facility] #[id number], Partial fill upon patientrequest if the prescription [...] tablet, 11 Refills, Maintenance, 12/29/21 10:02:00 EST, [facility] #[id number], resent - not recvd, 170, cm, 07/28/21 10:50:00 EDT, Height Start Date: 12/29/21 Status: Ordered Lantus 100 u/ml subcutaneous solution = 45 units, Subcutaneous Infusion, 2 times a day, changed from PEN, pt requesting vials, # 12 mL, 11 Refills, Maintenance, 01/11/22 9:45:00 EST, [facility] #[id number], Partial fill upon patientrequest if the prescription is for a schedule II op... Start Date: 01/11/22 Status: Ordered lidocaine 5% topical ointment 1 application, Topically, 3 times a day, wash hands thoroughly after application, prn pain, # 50 Gm, 0 Refills, Maintenance, 01/11/22 9:49:00 EST, Ointment, [facility] #[id number], Partial fill upon patient request if the prescription is for a sc... Start Date: 01/11/22 Status: Ordered lisinopril 40 mg oral tablet 1 tablet = 40 mg, By Mouth, Daily, # 90 tablet, 4 Refills, Maintenance, 07/20/21 9:25:00 EDT, Tablet, [facility] #[id number], 170, cm, 07/20/21 8:57:00 EDT, Height Start Date: 07/20/21 Stop Date: 10/13/22 Status: Ordered NovoLOG 100 units/mL injectable solution See Instructions, ADMINISTER 20 UNITS UNDER THE SKIN THREE TIMES DAILY BEFORE MEALS 90 DAY SUPPLY REQUESTED, # 30 mL, 2 Refills, [facility] #[id number], 170, cm, 07/28/21 10:50:00 EDT, Height Start [...] INJECTION SITES, # 2 mL, 0 Refills, [facility] #[id number], 170, cm, 07/28/21 10:50:00 EDT, Height Start Date: 01/10/22 Status: Ordered Ventolin HFA 108 mcg/inh inhalation aerosol with adapter 1 puffs, Inhalation, 4 times a day, PRN NEEDED FOR WHEEZING, # 18 Gm, 0 Refills, [facility] #[id number], 170, cm, 01/11/22 9:39:00 EST, Height Start [...] Obese class I(Confirmed) Active BHN/CCA/[facility]is Fel[facility] Peters [phone]/Health assisted active care coordination(Confirmed) Active Peripheral vascular disease(Confirmed) Active Umbilical hernia(Confirmed) Active 1per 2016 and 2018 [facility] notes Social History Social History Type Response Smoking Status Never (less than 100 in lifetime) entered on: 09/03/19 Sex Female 1per pt
--- OUTSIDE RECORDS SUMMARY | 2023-02-20 15:15 | XMS_ITS | Continuity of Care Document ---
Author Name Unknown Organization [facility] Address [address] [place] [address]- Care Team Providers Care Silk Worker Name Role Phone Josef MOSHER, Mamie Patterson Primary Care Physician [phone] [place] [facility] [place]22 [facility] [address] [place] [id number] Attending Physician: Admtr, Satish Admitting Physician: Admtr, Ar8 Referring Physician: Admtr, Ar8 Allergies, Adverse Reactions, Alerts Substance Reaction Severity Status ibuprofen ABD PAIN Active morphine Vomiting and itchy Active traMADol Itchy, Hives Active Immunizations Given and Recorded Vaccine Date Status Refusal Reason SARS-CoV-2 mRNA (kstuiot-yvca-ihtjv) vax 02/22/22 Recorded SARS-CoV-2 (COVID-19) mRNA BNT-162b2 [...] Note: VIS GIVEN-DATED 05/30/11 2Result Comment: LOT [id number] EXP 04 MAY 2010 3Admin Note: VIS [...] 04/13/22 16:40:00 EDT, Route to Pharmacy Electronically, [facility], Partial fill upon patient request if the prescription is f... Start Date: 04/13/22 Stop Date: 05/13/22 Status: Ordered atorvastatin 40 mg oral tablet 1 tablet = 40 mg, By Mouth, Daily, # 90 tablet, 2 Refills, Maintenance, 04/24/22 9:41:00 EDT, Tablet, [facility], Partial fill upon patient [...] 05/13/22 16:40:00 EDT, Route to Pharmacy Electronically, [facility], [...] 04/13/22 16:40:00 EDT, Route to Pharmacy Electronically, [facility] 3, Partial fill upon patient request [...] 05/11/22 8:04:00 EDT, 04/27/22 8:04:00 EDT, Capsule, [facility] 3, Partial fill upon patient request [...] 04/24/22 9:02:00 EDT, Route to Pharmacy Electronically, [facility], Partial fill upon patient request if the prescription is for a schedule II opio... Start Date: 04/24/22 Status: Ordered insulin aspart 100 units/mL subcutaneous solution = 20 units, Subcutaneous Injection, 3 times a day before meals, # 10 mL, 11 Refills, Maintenance, 03/10/22 9:06:00 EDT, Solution, [facility] #[id number], Partial fill upon patient request if theprescription [...] tablet, 11 Refills, Maintenance, 03/09/22 14:23:00 EDT, [facility], resent - not recvd, 169, cm, 03/09/22 13:46:00 EDT, Height, 104.9, kg, 03/04/22 2:58:00 EDT, Dry Weight Start Date: 03/09/22 Status: Ordered Lantus 100 u/ml subcutaneous solution = 30 units, Subcutaneous Injection, 2 times a day, # 10 mL, 5 Refills, Maintenance, 03/10/22 9:05:00 EDT, Solution, [facility] #[id number], Partial fill upon patient request if the prescription is for a schedule II opioid drug., 169, cm, 03/09/22... Start Date: 03/10/22 Status: Ordered lisinopril 10 mg oral tablet 10 mg, 1, tablet, By Mouth, Daily, # 30 tablet, Refills 4, Tot. Refills 4, Maintenance, 04/24/22 9:41:00 EDT, Route to Pharmacy Electronically, [facility] Partial fill upon patient request if [...] 04/24/22 13:25:00 EDT, Route to Pharmacy Electronically, [facility]/pharmacy #[id number], Partial fill upon patient request if t... [...] 0 Refills, Maintenance, 04/18/22 9:51:00 EDT, Aerosol, [facility] Partial fill upon patient [...] 0 Refills, Maintenance, 03/09/22 14:21:00 EDT, Gel, [facility] Partial fill upon patient [...] 2 mL, 11 Refills, 03/09/22 14:22:00 EDT, [facility] 169, cm, 03/09/22 13:46:00 EDT, Height, 104.9, kg, 03/04/22 2:58:00 EDT, Dry Weight Start Date: 03/09/22 Status: Ordered Tylenol 8 Hour 650 mg oral tablet, extended release 2 tablet = 1,300 mg, By Mouth, Every 8 hours, PRN as needed for pain, # 24 tablet, 0 Refills, Maintenance, 04/24/22 9:43:00 EDT, ER Tablet, [facility] Partial fill upon patient [...] Obese class II(Confirmed) Active BHN/CCA/Luis Felipe Peters [phone]/Health [facility]p active care coordination(Confirmed) Active Peripheral vascular disease(Confirmed) Active Uncontrolled type 1 diabetes mellitus with hyperglycemia, with long-term current use of insulin(Confirmed) Active Umbilical hernia(Confirmed) Active 1per 2017 and 2019 [facility] notes Social History Social History Type Response Smoking Status Never (less than 100 in lifetime) entered on: 09/03/19 Sex 1per pt
--- OUTSIDE RECORDS SUMMARY | 2023-02-20 15:15 | XMS_ITS | Continuity of Care Document ---
Author Name Unknown Organization [facility] Address [address] [place] [address]- Care Team Providers Care Sales Engineering Manager Name Role Phone Olivier MOSHER, Allegra Primary Care Physician Encounter [facility] Date(s): 07/21/22 - 08/20/22 [facility] [address] [place] [address], [place] [address] Allergies, Adverse Reactions, Alerts Substance Reaction Severity Status ibuprofen ABD PAIN Active morphine Vomiting and itchy Active traMADol Itchy, Hives Active Immunizations Given and Recorded Vaccine Date Status Refusal Reason SARS-CoV-2 mRNA ([id number]) vax 02/22/22 Recorded SARS-CoV-2 (COVID-19) mRNA BNT-162b2 [...] Note: VIS GIVEN-DATED 05/30/11 2Result Comment: LOT [id number] EXP 04 MAY 2010 3Admin Note: VIS [...] 04/24/22 9:05:00 EDT, Route to Pharmacy Electronically, [facility], Partial fill upon patient request if the prescription is for a schedule II opio... Start Date: 04/24/22 Status: Ordered ammonium lactate 5% topical lotion 1 application, Topically, 2 times a day, # 240 Gm, 0 Refills, Maintenance, 05/01/22 12:34:00 EDT, Lotion, [facility]/pharmacy #[id number], Partial fill upon patient request if the prescription is for a schedule II opioid drug., 1 application Topically 2 times a da... Start Date: 05/01/22 Stop Date: 05/31/22 Status: Ordered aspirin 81 mg oral delayed release tablet 81 mg, By Mouth, Daily, # 30 tablet, Refills 5, Tot. Refills 5, Maintenance, 05/13/22 16:40:00 EDT,Route to Pharmacy Electronically, [facility], Partial fill upon patient request if the prescription is for a schedule II opioid drug.,... Start Date: 05/13/22 Stop Date: 11/09/22 Status: Ordered atorvastatin 40 mg oral tablet 1 tablet = 40 mg, By Mouth, Daily, # 90 tablet, 2 Refills, Maintenance, 04/24/22 9:41:00 EDT, Tablet, [facility]., Partial fill upon patient request if [...] 07/26/22 16:13:00 EDT, [id number] Partial fill upon patient request if the prescription is for a schedule II opi... Start Date: 07/26/22 Stop Date: 01/22/23 Status: Ordered Colace sodium 100 mg oral capsule 100 mg, 1, capsule, By Mouth, 2 times a day, PRN, # 60 capsule, Refills 0, Tot. Refills 0, Maintenance, for constipation, 03/16/22 14:30:00 EDT, Route to Pharmacy Electronically, [facility], Partial fill upon patient request if [...] 07/07/22 15:52:00 EDT, Route to Pharmacy Electronically, [facility], Partial fill upon patient request if [...] 6 Refills, Soft Stop, 08/01/22 16:09:00EDT, Solution, [facility], Partial fill upon patient request if the prescription isfor a schedule II opioid drug., 169, cm, 08/01/22 1... Start Date: 08/01/22 Stop Date: 04/22/24 Status: Ordered lisinopril 10 mg oral tablet 10 mg, 1, tablet, By Mouth, Daily, # 90 tablet, Refills 4, Tot. Refills 4, Maintenance, 07/12/22 10:12:00 EDT, [id number], Partial fill upon patientrequest if the prescription is for a schedule II op... Start Date: 07/12/22 Stop Date: 10/05/23 Status: Ordered NovoLOG FlexPen 100 units/mL injectable solution = 20 units, Subcutaneous Injection, 3 times a day before meals, INJECT 20 UNITS INTO SKIN THREE TIMES DAILY BEFORE A MEAL, # 15 mL, 10 Refills, Maintenance, 08/01/22 16:09:00 EDT, [facility]., 169, cm, 08/01/22 14:14:00 EDT, Height, [...] Acute 08/25/22 8:51:00 EDT, 08/11/22 8:51:00 EDT, [facility]/pharmacy #[id number], Partial fill upon [...] 04/24/22 9:03:00 EDT, Route to Pharmacy Electronically, [facility], Partial fill upon patient request if the prescription is for a schedule II opio... Start Date: 04/24/22 Status: Ordered ProAir HFA 90 mcg/inh inhalation aerosol 1 puffs, Inhalation, Every 4 hours, PRN as needed for wheezing, # 18 Gm, 0 Refills, Maintenance, 04/18/22 9:51:00 EDT, Aerosol, [facility], Partial fill upon patient request if [...] 0 Refills, Maintenance, 03/09/22 14:21:00 EDT, Gel, [facility], Partial fill upon patient request if the p... Start Date: 03/09/22 Status: Ordered traZODone 300 mg oral tablet 1 tablet = 300 mg, By Mouth, Daily at bedtime Start Date: 03/03/22 Status: Ordered Trulicity Pen 4.5 mg/0.5 mL subcutaneous solution = 0.5 mL, Subcutaneous Injection, Every week, rotate injection sites, # 6 mL, 4 Refills, Maintenance, 07/19/22 10:42:00 EDT, Solution, [facility] #[id number], Partial fill upon patient request if the prescription is for a schedule II opioid drug.... Start Date: 07/19/22 Status: Ordered Tylenol 8 Hour 650 mg oral tablet, extended release 2 tablet = 1,300 mg, By Mouth, Every 8 hours, PRN as needed for pain, # 24 tablet, 0 Refills, Maintenance, 04/24/22 9:43:00 EDT, ER Tablet, [facility]., Partial fill upon patient request if the prescription is for a schedule II opioid d... Start Date: 04/24/22 Status: Ordered Ventolin HFA 108 mcg/inh inhalation aerosol with adapter 2 puffs, Inhalation, Every 6 hours, PRN Wheezing/Shortness of Breath, # 8 Gm, 1 Refills, Maintenance, 05/30/22 10:56:00 EDT, [facility], Partial fill upon patient request if [...] Obese class II Confirmed Active BHN/CCA/CP- Angle [phone] assisted active care coordination Confirmed Active Peripheral vascular disease Confirmed Active Umbilical hernia Confirmed Active 1per 2016 and 2018 [facility] notes Social History Social History Type Response Smoking Status Never (less than 100 in lifetime) entered on: 09/03/19 Sex 1per pt Patient Care team information Personnel Name: Allegra Aguayo MD Address: Address: [address] [place] [address] [place], [place] [address]
--- OUTSIDE RECORDS SUMMARY | 2023-02-20 15:15 | XMS_ITS | Continuity of Care Document ---
Author Name Unknown Organization [facility] Address [address] [place] [address]- Care Team Providers Care Epic Manager Name Role Phone Sangeetha MOSHER, Marcia Koroma Primary Care Physician Encounter [facility] Date(s): 12/03/20 - 01/02/21 [facility] [address] [place] [id number] Allergies, Adverse Reactions, Alerts Substance Reaction [...] Note: VIS GIVEN-DATED 05/30/11 2Result Comment: LOT [id number] EXP 04 MAY 2010 3Admin Note: VIS given Medications albuterol 90 mcg/inh inhalation powder 2 puffs, Inhalation, Every 6 hours, PRN as needed, # 1 each, 11 Refills, Maintenance, 12/08/20 11:02:00 EST, Powder, [facility] #[id number], 2 puffs Inhalation Every 6 hours,PRN:as needed, [...] 07/30/20 18:34:00 EDT, Route to Pharmacy Electronically, [facility] #[id number], 170, cm, 05/20/20 14:48:00 EDT, Height, 100.5, kg, 05/30/19 9:39:00 EDT, Dry... Start Date: 07/30/20 Stop Date: 07/25/21 Status: Ordered aspirin 81 mg oral delayed release tablet 81 mg, 1, tablet, By Mouth, Daily, # 30 tablet, Refills 11, Tot. Refills 11, Maintenance, 05/20/20 14:45:00 EDT, Route to Pharmacy Electronically, [facility] #[id number], 170, cm, 05/20/20 14:08:00 EDT, Height, 100.5, kg, 05/30/19 9:39:00 EDT, Start Date: 05/20/20 Status: Ordered atorvastatin 10 mg oral tablet 1 tablet = 10 mg, By Mouth, Daily, # 30 tablet, 11 Refills, Maintenance, 05/20/20 14:46:00 EDT, [facility] #[id number], 170, cm, 05/20/20 14:08:00 EDT, Height, 100.5, [...] 0 Refills, Maintenance, 09/02/20 14:20:00 EDT, Ointment, [facility] #[id number], 1 application Topically 2 times a day, [...] 09/10/20 18:41:00 EST, pt was transferred to [facility]... Start Date: 09/10/20 Stop Date: 03/09/21 Status: Ordered Insulin Syringe, BD Ultra-Fine 0.5 cc 31 G x 8 mm (5/16in) See Instructions, # 150 each, Refills 11, Tot. Refills 11, Maintenance, use as directed for Type 2 Diabetes Mellitus to admisiter insulin four times a day. Dx; E11.9, 05/15/21 15:10:00 EDT, pt was transferred to [facility], all meds left [facility]... Start Date: 05/15/21 Stop Date: 05/10/22 Status: Ordered Lantus 100 u/ml subcutaneous solution = 40 units, Subcutaneous Infusion, 2 times a day, # 15 mL, 3 Refills, Maintenance, 12/16/20 14:02:00 EST, [facility] #[id number], 170, cm, 05/20/20 14:48:00 EDT, Height, 100.5, kg, 05/30/19 9:39:00 EDT, Dry Weight Start Date: 12/16/20 Stop Date: 04/15/21 Status: Ordered lisinopril 40 mg oral tablet 1 tablet = 40 mg, By Mouth, Daily, # 90 tablet, 4 Refills, Maintenance, 02/03/20 12:39:00 EDT, Tablet, [facility] #[id number], 170, cm, 12/16/19 10:11:00 EST, Height, 100.5, [...] mL, 1 Refills, Maintenance, 12/17/20 13:06:00 EST, [facility] #[id number], 170, cm, 05/20/2014:48:00 EDT, Height, 100.5, kg, 05/30/19 9:39:00 E... Start Date: 12/17/20 Status: Ordered OXcarbazepine 300 mg oral tablet TK 1 T PO BID Start Date: 01/29/19 Status: Ordered PARoxetine 40 mg oral tablet TK 1 T PO HS Start Date: 01/29/19 Status: Ordered Pen [place], 31 G x 5 mm BD Ultra [...] mg, By Mouth, Daily, # 30 tablet, 1 Refills, Maintenance, 12/21/20 10:40:00 EST, Tablet, [facility] #[id number], Partial fill upon patient request if the prescription is for a schedule II opioid drug., 170, cm, 12/21/20 9:18:00 EST,... Start Date: 12/21/20 Status: Ordered traZODone 300 mg oral tablet TK 1 T PO HS Start Date: 01/29/19 Status: Ordered triamcinolone 0.1% topical ointment 1 application, Topically, 2 times a day, apply a thin film to affected area, # 60 Gm, 0 Refills, Maintenance, 05/20/20 15:09:00 EDT, Ointment, [facility] #[id number], 1 application Topically 2 times a day,x14 days,Instr:apply a thin film; to aff... Start Date: 05/20/20 Stop Date: 06/03/20 Status: Ordered Trulicity Pen 0.75 mg/0.5 mL subcutaneous solution 0.5 mL = 0.75 mg, Subcutaneous Injection, Every week, rotate injection sites, # 2 mL, 0 Refills, Maintenance, 12/21/20 10:43:00 EST, [facility] #[id number], Partial fill upon patient request if the prescription is for a schedule II opio... Start Date: 12/21/20 Status: Ordered Trulicity Pen 1.5 mg/0.5 mL subcutaneous solution 0.5 mL = 1.5 mg, Subcutaneous Injection, Every week, # 2.5 mL, 5 Refills, Maintenance, 01/25/21 8:56:00 EDT, [facility] #[id number], 170, cm, 05/20/20 14:48:00 EDT, Height, 100.5, [...] Hypertension(Confirmed) Active Microalbuminuria(Confirmed) Active Morbid obesity(Confirmed) Active BHN/KELVIN/AUDRA-Mignon Peters [phone]/Health assisted active care coordination(Confirmed) Active Peripheral vascular disease(Confirmed) Active Umbilical hernia(Confirmed) Active 1per 2017 and 2018 [facility] notes Social History Social History Type Response Smoking Status Never (less than 100 in lifetime) entered on: 09/03/19 Sex Female 1per pt
--- OUTSIDE RECORDS SUMMARY | 2023-02-20 15:15 | XMS_ITS | Continuity of Care Document ---
Author Name Unknown Organization [facility] Address [address] [place] [address]- Care Team Providers Care Leadite Heater Name Role Phone Sangeetha MOSHER, Marcia Koroma Primary Care Physician Encounter [facility] Date(s): 05/04/20 - 06/03/20 [facility] [address] [place] [id number] Allergies, Adverse Reactions, Alerts Substance Reaction Severity Status ibuprofen ABD PAIN Active morphine Vomiting and itchy Active traMADol Itchy, Hives Active Immunizations Given and Recorded Vaccine Date Status Refusal Reason tetanus-diphtheria toxoids (Td) 09/03/19 Given influenza virus vaccine, inactivated 1 08/15/11 Gi jaen-paul influenza virus vaccine, inactivated 2 10/21/09 Gi jean-paul influenza virus vaccine, inactivated 09/16/08 Give n Tet/Diphth/Acel, Pertussis (oldterm) 3 10/14/08 Gi jean-paul Pneumococcal Vaccine (oldterm) 09/16/08 Given Not Given Vaccine Date Status Refusal Reason pneumococcal 23-valent vaccine 05/31/19 Not Given Patient Refuses 1Admin Note: VIS GIVEN-DATED 05/30/11 2Result Comment: LOT [id number] EXP 04 MAY 2010 3Admin Note: VIS [...] 02/03/20 12:39:00 EDT, Route to Pharmacy Electronically, [facility] #[id number], 170, cm, 12/16/19 10:11:00 EST, Height, 100.5, kg, 05/30/19 9:39:00 EDT, Dry... Start Date: 02/03/20 Stop Date: 01/28/21 Status: Ordered aspirin 81 mg oral delayed release tablet 81 mg, 1, tablet, By Mouth, Daily, # 30 tablet, Refills 11, Tot. Refills 11, Maintenance, 05/20/20 14:45:00 EDT, Route to Pharmacy Electronically, [facility] #[id number], 170, cm, 05/20/20 14:08:00 EDT, Height, 100.5, kg, 05/30/19 9:39:00 EDT, Start Date: 05/20/20 Status: Ordered atorvastatin 10 mg oral tablet 1 tablet = 10 mg, By Mouth, Daily, # 30 tablet, 11 Refills, Maintenance, 05/20/20 14:46:00 EDT, [facility] #[id number], 170, cm, 05/20/20 14:08:00 EDT, Height, 100.5, [...] 03/06/19 17:12:53 EDT, Route to Pharmacy Electronically, [id number], [facility] [id number] Start Date: 03/06/19 Status: Ordered Insulin Syringe, BD Ultra-Fine 0.5 cc 31 G x 8 mm (516in) See Instructions, # 150 each, Refills 11, Tot. Refills 11, Maintenance, use as directed for Type 2 Diabetes Mellitus to admisiter insulin four times a day. Dx; E11.9, 05/20/20 15:10:00 EDT, pt was transferred to [facility], all meds left beh... Start Date: 05/20/20 Stop Date: 05/15/21 Status: Ordered Lantus 100 u/ml subcutaneous solution = 40 units, Subcutaneous Infusion, 2 times a day, # 15 mL, 11 Refills, Maintenance, 04/28/20 11:50:00 EDT, [facility] #[id number], 170, cm, 04/02/20 13:31:00 EDT, Height, 100.5, kg, 05/30/19 9:39:00 EDT, Dry Weight Start Date: 04/28/20 Stop Date: 04/23/21 Status: Ordered lisinopril 40 mg oral tablet 1 tablet = 40 mg, By Mouth, Daily, # 90 tablet, 4 Refills, Maintenance, 02/03/20 12:39:00 EDT, Tablet, [facility] #[id number], 170, cm, 12/16/19 10:11:00 EST, Height, 100.5, kg, 05/30/19 9:39:00EDT, Dry Weight Start Date: 02/03/20 Stop Date: 04/28/21 Status: Ordered Melatonin 5 mg oral tablet 0 Refills, Maintenance, 01/29/19 10:09:09 EDT Start Date: 01/29/19 Status: Ordered NovoLOG 100 units/mL injectable solution = 20 units, Subcutaneous Infusion, 3 times a day before meals, replaces humalog, # 50 mL, 1 Refills, Maintenance, 02/09/20 16:58:00 EDT, [facility] #[id number], 170, cm, 12/16/19 10:11:00 EST, Height, 100.5, [...] 0 Refills, Maintenance, 05/20/20 15:09:00 EDT, Ointment, [facility] #[id number], 1 application Topically 2 times a day,x14 days,Instr:apply a thin film; to aff... Start Date: 05/20/20 Stop Date: 06/03/20 Status: Ordered Trulicity Pen 1.5 mg/0.5 mL subcutaneous solution 0.5 mL = 1.5 mg, Subcutaneous Injection, Every week, # 2.5 mL, 5 Refills, Maintenance, 02/03/20 10:19:00 EDT, Solution, [facility] #[id number], 170, cm, 12/16/19 10:11:00 EST, Height, 100.5, [...] Umbilical hernia(Confirmed) Active 1per 2017 and 2019 [facility] notes Social History Social History Type Response Smoking Status Never (less than 100 in lifetime) entered on: 09/03/19 Sex Female 1per pt
--- OUTSIDE RECORDS SUMMARY | 2023-02-20 15:15 | XMS_ITS | Continuity of Care Document ---
Author Name Unknown Organization [facility] Address [address] [place] [address]- Care Team Providers Care Factory Hand Name Role Phone Olivier MOSHER, Allegra Primary Care Physician [phone] Encounter [facility] Date(s): 09/25/22 - 12/21/22 [facility] [address] [place] [address]- Attending Physician: Aditi Gay MD Admitting Physician: Victor Hugo MOSHER, Aditi Kilgore Allergies, Adverse Reactions, Alerts Substance Reaction Severity Status ibuprofen ABD PAIN Active morphine Vomiting and itchy Active traMADol Itchy, Hives Active Immunizations Given and Recorded Vaccine Date Status Refusal Reason SARS-CoV-2 mRNA ([id number]) vax 02/22/22 Recorded SARS-CoV-2 (COVID-19) mRNA BNT-162b2 [...] Note: VIS GIVEN-DATED 05/30/11 2Result Comment: LOT [id number] EXP 04 MAY 2010 3Admin Note: VIS [...] 04/24/22 9:05:00 EDT, [facility] fill upon patient request if the prescription is for a schedule II opio... Start Date: 04/24/22 Status: Ordered ammonium lactate 5% topical lotion 1 application, Topically, 2 times a day, # 240 Gm, 0 Refills, Maintenance, 05/01/22 12:34:00 EDT, Lotion, [facility]acy #[id number], Partial fill upon patient request if the prescription is for a schedule II opioid drug., 1 application Topically 2 times a da... Start Date: 05/01/22 Stop Date: 05/31/22 Status: Ordered aspirin 81 mg oral delayed release tablet 81 mg, By Mouth, Daily, # 30 tablet, Refills 0, Tot. Refills 0, Maintenance, 11/09/22 16:40:00 EST,Route to Pharmacy Electronically, [facility]/pharmacy #[id number], Partial fill upon patient request if the prescription is for a schedule II opioid drug., 169, cm,... Start Date: 11/09/22 Stop Date: 12/09/22 Status: Ordered atorvastatin 40 mg oral tablet 1 tablet = 40 mg, By Mouth, Daily, # 90 tablet, 2 Refills, Maintenance, 04/24/22 9:41:00 EDT, Tablet, [facility], Partial [...] EDT, Route to Pharmacy Electronically, [facility]/pharmacy #[id number], Partial fill upon patient request if the pres... Start Date: 07/26/22 Stop Date: 01/22/23 Status: Ordered carvedilol 25 mg oral tablet 25 mg, 1, tablet, By Mouth, 2 times a day, # 60 tablet, Refills 2, Tot. Refills 2, Maintenance, 01/22/23 16:13:00 EDT, Route to Pharmacy Electronically, [facility]/pharmacy #[id number], Partial fill upon patient request if the prescription is for a schedule II opi... Start Date: 3/20/23 Stop Date: 04/22/23 Status: Ordered Colace sodium 100 mg oral capsule 100 mg, 1, capsule, By Mouth, 2 times a day, PRN, # 60 capsule, Refills 0, Tot. Refills 0, Maintenance, for constipation, 03/16/22 14:30:00 EDT, Route to Pharmacy Electronically, [facility], Partial [...] 0 Refills, Maintenance, 09/21/22 11:57:00 EST, Tablet, [facility]/pharmacy #[id number], Partial fill upon patient request [...] 10/16/22 10:25:00 EST, Route to Pharmacy Electronically, [facility] #[id number], Partial fill upon patientrequest if the prescription [...] each, 0 Refills, Maintenance, 12/04/22 15:48:00 EST, [facility]/pharmacy #[id number], Partial fill upon patient request if the prescription is for a schedule II opioid drug., 169, cm, 11/28/22... Start Date: 12/04/22 Stop Date: 01/03/23 Status: Ordered Lasix 20 mg oral tablet 1, capsule, By Mouth, Once, take one pill daily for 3 days, # 3 tablet, Refills 0, Tot. Refills 0, Soft Stop, 09/20/22 11:19:00 EST, Route to Pharmacy Electronically, [facility]/pharmacy #[id number], Partial fillupon patient request if the prescription is for a s... Start Date: 09/20/22 Status: Ordered levoFLOXacin 250 mg oral tablet 1 tablet = 250 mg, By Mouth, Every 24 hours, # 14 tablet, 0 Refills, Maintenance, 09/20/22 11:28:00EST, Tablet, [facility]/pharmacy #[id number], Partial fill upon patient request if the prescription is for a schedule II opioid drug., 169, cm, 09/20/22 9:22:00 EST... Start Date: 09/20/22 Stop Date: 10/04/22 Status: Ordered lisinopril 10 mg oral tablet 10 mg, 1, tablet, By Mouth, Daily, # 90 tablet, Refills 0, Tot. Refills 0, Maintenance, 11/30/22 8:10:00 EST, Route to Pharmacy Electronically, [facility]/pharmacy #[id number], Partial fill upon patient request [...] tablet, 0 Refills, Maintenance, 11/28/22 13:29:00 EST, [facility]/pharmacy #[id number], Partial fill upon patient request if the prescription is for a schedule II opioid drug., 169,... Start Date: 11/28/22 Status: Ordered oxyCODONE 10 mg oral tablet 1 tablet = 10 mg, By Mouth, Every 12 hours, PRN Pain , Moderate, # 30 tablet, 0 Refills, Maintenance, 12/15/22 18:43:00 EST, [facility]/pharmacy #[id number], Partial fill upon patient request if the prescription is for a schedule II opioid drug., 169, cm, 11/28/22... Start Date: 12/15/22 Status: Ordered PARoxetine 40 mg oral tablet 40 mg, 1, tablet, By Mouth, Daily, Refills 0, Maintenance, 01/11/22 9:43:00 EST Start Date: 01/11/22 Status: Ordered Pen [place], 31 G x 5 mm BD Ultra [...] 04/24/22 9:03:00 EDT, Route to Pharmacy Electronically, [facility], Partial [...] 0 Refills, Maintenance, 11/22/22 12:11:00 EST, Ointment, [facility]/pharmacy #[id number], Partial fill upon patient request [...] 2 Refills, Maintenance, 10/16/22 13:14:00 EST, Solution, [facility]/pharmacy #[id number], Partial fill upon patient request [...] Active Morbid obesity Confirmed Active BHN/CCA/CP- Angle [phone] long-term active care coordination Confirmed Active Peripheral vascular disease - right SFA angioplasty/right great toe amputation 2021 Confirmed Active Severe obesity (BMI 35.0-39.9) with comorbidity Confirmed Active Umbilical hernia Confirmed Active 1per 2017 and 2019 [facility] notes Social History Social History Type Response Smoking Status Never (less than 100 in lifetime) entered on: 09/03/19 Sex 1per pt Patient Care team information Care Team Personnel Name: Allegra Aguayo MD Position: [facility] Resident Member Role: PCP Address: Address: [address] [place] [id number] Name: Vera Locke RN Position: S [...] Persons Name: MIKEY SEAY Address: home [address] [address] Name: MIKEY AYALA Address: home [address] [place] [address] Name: TANIA COPPOLA Address: home [address] [place] [id number] Name: TANIA MUÑIZ Address: home [address] [place] [id number]
--- OUTSIDE RECORDS SUMMARY | 2023-02-20 15:15 | XMS_ITS | Continuity of Care Document ---
Author Name Unknown Organization [facility] Address [address] [place] [address]- Care Team Providers Care A Auxiliary Name Role Phone Josef MOSHER, Mamie Patterson Primary Care Physician [place] [facility] [place]13[place]22 - 02/12/22 [facility] [address], [place] [address] Allergies, Adverse Reactions, Alerts [...] Note: VIS GIVEN-DATED 05/30/11 2Result Comment: LOT [id number] EXP 04 MAY 2010 3Admin Note: VIS [...] 12/29/21 10:02:00 EST, Route to Pharmacy Electronically, [facility] #[id number], 170, cm, 07/28/21 10:50:00 EDT, Height Start Date: 12/29/21 Stop Date: 03/24/23 Status: Ordered atorvastatin 10 mg oral tablet 1 tablet, By Mouth, Daily, # 90 tablet, 1 Refills, Maintenance, 12/13/21 19:21:00 EST, [facility] #[id number], 170, cm, 07/28/21 10:50:00 EDT, Height Start [...] 12/29/21 10:02:00 EST, Route to Pharmacy Electronically, [facility] #[id number], Partial fill upon patientrequest if the prescription [...] tablet, 11 Refills, Maintenance, 02/08/22 9:43:00 EDT, [facility] #[id number], resent - not recvd, 170, cm, 02/08/22 9:14:00 EDT, Height Start Date: 02/08/22 Status: Ordered Lantus Solostar Pen 100 units/mL subcutaneous solution = 45 units, Subcutaneous Infusion, 2 times a day, CHANGED BACK TO PEN- per pt request, 90 day supply, # 5 each, 11 Refills, Maintenance, 02/08/22 9:52:00 EDT, [facility] #[id number], Partial fill upon patient request if the prescription is for a... Start Date: 02/08/22 Stop Date: 01/23/25 Status: Ordered lidocaine 5% topical ointment 1 application, Topically, 3 times a day, wash hands thoroughly after application, prn pain, # 50 Gm, 0 Refills, Maintenance, 01/11/22 9:49:00 EST, Ointment, [facility] #[id number], Partial fill upon patient request if the prescription is for a sc... Start Date: 01/11/22 Status: Ordered lisinopril 40 mg oral tablet 1 tablet = 40 mg, By Mouth, Daily, # 90 tablet, 4 Refills, Maintenance, 07/20/21 9:25:00 EDT, Tablet, [facility] #[id number], 170, cm, 07/20/21 8:57:00 EDT, Height Start Date: 07/20/21 Stop Date: 10/13/22 Status: Ordered [facility] [place]ills 0, Maintenance, PLEASE KEEP MEDICATIONS AT ONE PHARMACY- currently at [facility], 02/09/22 16:49:00 EDT, Supply Start Date: 02/09/22 Status: Ordered NovoLOG 100 units/mL injectable solution See Instructions, ADMINISTER 20 UNITS UNDER THE SKIN THREE TIMES DAILY BEFORE MEALS 90 DAY SUPPLY REQUESTED, # 30 mL, 2 [facility]ills[id number], 170, cm, 07/28/21 10:50:00 EDT, Height Start [...] INJECTION SITES, # 2 mL, 11 Refills, 02/06/22 12:42:00 EDT, [facility] #[id number], 170, cm, 01/11/22 9:39:00 EST, Height Start Date: 02/06/22 Status: Ordered Ventolin HFA 108 mcg/inh inhalation aerosol with adapter 1 puffs, Inhalation, 4 times a day, PRN NEEDED FOR WHEEZING, # 18 Gm, 0 Refills, [facility] #[id number], 170, cm, 01/11/22 9:39:00 EST, Height Start [...] Active Obese class II(Confirmed) Active BHN/CCA/AUDRA-Mignon Peters [phone]/[facility] active care coordination(Confirmed) Active Peripheral vascular disease(Confirmed) Active Umbilical hernia(Confirmed) Active 1per 2017 and 2019 [facility] notes Social History Social History Type Response Smoking Status Never (less than 100 in lifetime) entered on: 09/03/19 Sex Female 1per pt
--- OUTSIDE RECORDS SUMMARY | 2023-02-20 15:15 | XMS_ITS | Continuity of Care Document ---
Author Name Unknown Organization [facility] Address [address] [place] [address]- Care Team Providers Care Beef Trimmer Name Role Phone Olivier MOSHER, Allegra Primary Care Physician Encounter [facility] Date(s): 09/01/22 - 10/01/22 [facility] [address] [place] [id number] Allergies, Adverse Reactions, Alerts Substance Reaction Severity Status ibuprofen ABD PAIN Active morphine Vomiting and itchy Active traMADol Itchy, Hives Active Immunizations Given and Recorded Vaccine Date Status Refusal Reason SARS-CoV-2 mRNA ([id number]) vax 02/22/22 Recorded SARS-CoV-2 (COVID-19) mRNA BNT-162b2 [...] Note: VIS GIVEN-DATED 05/30/11 2Result Comment: LOT [id number] EXP 04 MAY 2010 3Admin Note: VIS [...] 09/12/22 13:18:00 EST, Route to Pharmacy Electronically, [facility]/pharmacy #[id number], Partial fill upon patient req... Start Date: [...] 04/24/22 9:05:00 EDT, Route to Pharmacy Electronically, [facility], Partial fill upon patient request if the prescription is for a schedule II opio... Start Date: 04/24/22 Status: Ordered ammonium lactate 5% topical lotion 1 application, Topically, 2 times a day, # 240 Gm, 0 Refills, Maintenance, 05/01/22 12:34:00 EDT, Lotion, [facility]/pharmacy #[id number], Partial fill upon patient request if the prescription is for a schedule II opioid drug., 1 application Topically 2 times a da... Start Date: 05/01/22 Stop Date: 05/31/22 Status: Ordered aspirin 81 mg oral delayed release tablet 81 mg, By Mouth, Daily, # 30 tablet, Refills 5, Tot. Refills 5, Maintenance, 05/13/22 16:40:00 EDT,Route to Pharmacy Electronically, [facility], Partial fill upon patient request if the prescription is for a schedule II opioid drug.,... Start Date: 05/13/22 Stop Date: 11/09/22 Status: Ordered atorvastatin 40 mg oral tablet 1 tablet = 40 mg, By Mouth, Daily, # 90 tablet, 2 Refills, Maintenance, 04/24/22 9:41:00 EDT, Tablet, [facility], Partial fill upon patient request if [...] 07/26/22 16:13:00 EDT, Route to Pharmacy Electronically, [facility]/pharmacy #[id number], Partial fill upon patient request if the prescription is for a schedule II opi... Start Date: 07/26/22 Stop Date: 01/22/23 Status: Ordered Colace sodium 100 mg oral capsule 100 mg, 1, capsule, By Mouth, 2 times a day, PRN, # 60 capsule, Refills 0, Tot. Refills 0, Maintenance, for constipation, 03/16/22 14:30:00 EDT, Route to Pharmacy Electronically, [facility], Partial fill upon patient request if [...] 0 Refills, Maintenance, 09/21/22 11:57:00 EST, Tablet, [facility]/pharmacy #[id number], Partial fill upon patient request [...] 07/07/22 15:52:00 EDT, Route to Pharmacy Electronically, [facility], Partial fill upon patient request if [...] 6 Refills, Soft Stop, 08/01/22 16:09:00EDT, Solution, [facility], Partial fill upon patient request if the prescription isfor a schedule II opioid drug., 169, cm, 08/01/22 1... Start Date: 08/01/22 Stop Date: 04/22/24 Status: Ordered Lasix 20 mg oral tablet 1, capsule, By Mouth, Once, take one pill daily for 3 days, # 3 tablet, Refills 0, Tot. Refills 0, Soft Stop, 09/20/22 11:19:00 EST, [id number] Partial fillupon patient request if the prescription is for a s... Start Date: 09/20/22 Status: Ordered levoFLOXacin 250 mg oral tablet 1 tablet = 250 mg, By Mouth, Every 24 hours, # 14 tablet, 0 Refills, Maintenance, 09/20/22 11:28:00EST, Tablet, [facility]/pharmacy #[id number], Partial fill upon patient request if the prescription is for a schedule II opioid drug., 169, cm, 09/20/22 9:22:00 EST... Start Date: 09/20/22 Stop Date: 10/04/22 Status: Ordered lisinopril 10 mg oral tablet 10 mg, 1, tablet, By Mouth, Daily, # 90 tablet, Refills 4, Tot. Refills 4, Maintenance, 07/12/22 10:12:00 EDT, Route to Pharmacy Electronically, [facility] #[id number], Partial fill upon patientrequest if the prescription is for a schedule II op... Start Date: 07/12/22 Stop Date: 10/05/23 Status: Ordered NovoLOG FlexPen 100 units/mL injectable solution = 20 units, Subcutaneous Injection, 3 times a day before meals, INJECT 20 UNITS INTO SKIN THREE TIMES DAILY BEFORE A MEAL, # 15 mL, 10 Refills, Maintenance, 08/01/22 16:09:00 EDT, [facility], 169, cm, 08/01/22 14:14:00 EDT, Height, [...] 10/04/22 15:20:00 EST, 09/27/22 15:20:00 EST, Tablet, [facility]/pharmacy #[id number], Partial fill upon patient request if the [...] 04/24/22 9:03:00 EDT, Route to Pharmacy Electronically, [facility], Partial fill upon patient request if the prescription is for a schedule II opio... Start Date: 04/24/22 Status: Ordered ProAir HFA 90 mcg/inh inhalation aerosol 1 puffs, Inhalation, Every 4 hours, PRN as needed for wheezing, # 18 Gm, 0 Refills, Maintenance, 04/18/22 9:51:00 EDT, Aerosol, [facility], Partial fill upon patient request if [...] 4 Refills, Maintenance, 07/19/22 10:42:00 EDT, Solution, [facility] #[id number], Partial fill upon patient request if the prescription is for a schedule II opioid drug.... Start Date: 07/19/22 Status: Ordered Ventolin HFA 108 mcg/inh inhalation aerosol with adapter 2 puffs, Inhalation, Every 6 hours, PRN Wheezing/Shortness of Breath, # 8 Gm, 1 Refills, Maintenance, 05/30/22 10:56:00 EDT, [facility], Partial fill upon patient request if [...] Obese class II Confirmed Active BHN/CCA/CP- [facility] [phone] [facility] active care coordination Confirmed Active Peripheral vascular disease - right SFA angioplasty/right great toe amputation 2021 Confirmed Active Umbilical hernia Confirmed Active 1per 2016 and 2018 [facility] notes Social History Social History Type Response Smoking Status Never (less than 100 in lifetime) entered on: 09/03/19 Sex 1per pt Patient Care team information Care Team Personnel Name: Allegra Aguayo MD Position: [facility] Resident Member Role: PCP Address: Address: [address] [place] [address] Name: Vera Locke RN Position: S RN [...] Persons Name: MIKEY SEAY Address: home [address] [address] Name: MIKEY AYALA Address: home [address] [place] [address] Name: TANIA COPPOLA Address: home [address] [place] [id number] Name: TANIA MUÑIZ Address: home [address] [place] [id number]
--- OUTSIDE RECORDS SUMMARY | 2023-02-20 15:16 | XMS_ITS | Continuity of Care Document ---
Author Name Unknown Organization [facility] Address [address] [place] [address]- Care Team Providers Care Family And Consumer Sciences Professor Name Role Phone Olivier MOSHER, Allegra Primary Care Physician Encounter [facility] [place] Date(s): 01/17/23 - 02/16/23 [facility] [address] [place] [address]- Allergies, Adverse Reactions, Alerts Substance Reaction Severity Status ibuprofen ABD PAIN Active morphine Vomiting and itchy Active traMADol Itchy, Hives Active Immunizations Given and Recorded Vaccine Date Status Refusal Reason SARS-CoV-2 mRNA (gojntcq-ffql-[id number]) vax 02/22/22 Recorded SARS-CoV-2 (COVID-19) mRNA BNT-162b2 [...] Note: VIS GIVEN-DATED 05/30/11 2Result Comment: LOT [id number] EXP 04 MAY 2010 3Admin Note: VIS [...] 01/23/23 10:18:00 EDT, Route to Pharmacy Electronically, [facility]/pharmacy #[id number], Partial fill upon patient [...] Date: 01/22/23 Stop Date: 04/22/23 Status: Ordered Compression Stockings See Instructions, # 1 each, Maintenance, surgical, calf length 30-40 mm Hg, 02/16/23 2:45:00 EDT, Supply, 169, cm, 02/14/23 10:47:00 EDT, Height, 103.42, kg, 10/09/22 8:39:00 EST, Dry Weight Start Date: 02/16/23 Status: Ordered D/armando Rx D/armando Rx, See [...] 0 Refills, Maintenance, 02/14/23 11:54:00 EDT, Aerosol, [facility]/pharmacy #[id number], Partial fill upon patient request if the [...] 10/16/22 10:25:00 EST, Route to Pharmacy Electronically, [facility] #[id number], Partial fill upon patientrequest if the prescription is for a schedule II op... Start Date: 10/16/22 Status: Ordered Lantus Solostar Pen 100 units/mL subcutaneous solution See Instructions, Subcutaneous Injection, 30 units sc bid dx E11.9 dose increased 01/23/23, # 15 mL,11 Refills, Maintenance, 01/23/23 9:43:00 EDT, [facility] #[id number], Partial fill upon patient request if the prescription is for a schedule II opioid d... Start Date: 01/23/23 Stop Date: 01/18/24 Status: Ordered lisinopril 10 mg oral tablet 10 mg, 1, tablet, By Mouth, Daily, # 90 tablet, Refills 2, Tot. Refills 2, Maintenance, 01/23/23 10:15:00 EDT, [id number] Partial fill upon patient request if the prescription is for a schedule II opioid drug... Start Date: 01/23/23 Stop Date: 10/20/23 Status: Ordered NovoLOG FlexPen 100 units/mL injectable solution INJECT 20 UNITS SUBCUTANEOUSLY 3 TIMES A DAY BEFORE MEALS Start Date: 01/23/23 Status: Ordered NovoLOG FlexPen 100 units/mL injectable solution = 20 units, Subcutaneous Injection, 3 times a day before meals, INJECT 20 UNITS THREE TIMES DAILY BEFORE A MEAL, # 15 mL, 0 Refills, Maintenance, 02/16/23 9:44:00 EDT, [id number], 169, cm, 02/14/23 10:47:00 EDT, Height, 103.42, kg, 10/09/22 8:... Start Date: 02/16/23 Stop Date: 05/17/23 Status: Ordered oxyCODONE 10 mg oral tablet 1 tablet = 10 mg, By Mouth, Every 12 hours, # 30 tablet, 0 Refills, Maintenance, 01/29/23 16:57:00 EDT, [facility]/pharmacy #[id number], Partial fill upon patient request if the prescription is for a schedule II opioid drug., 169, cm, 01/23/23 13:31:00 EDT, Height... Start Date: 01/29/23 Status: Ordered PARoxetine 40 mg oral tablet 40 mg, 1, tablet, By Mouth, Daily, Refills 0, Maintenance, 01/11/22 9:43:00 EST Start Date: 01/11/22 Status: Ordered Pen [place], 31 G x 5 mm BD Ultra Fine III See Instructions, # 1 each, Refills 5, Tot. Refills 5, Maintenance, use to inject insulin up to four times daily. dx E11.9, 12/04/22 15:49:00 EST, Supply, 169, cm, 11/28/22 9:17:00 EST, Height, 103.42, kg, 10/09/22 8:39:00 EST, Dry Weight Start Date: 12/04/22 Status: Ordered predniSONE 20 mg oral tablet 2 tablet = 40 mg, By Mouth, Daily, for 4 days, # 8 tablet, 0 Refills, Acute 02/20/23 2:46:00 EDT, 02/16/23 2:46:00 EDT, Tablet, [facility]/pharmacy #[id number], Partial fill upon patient request if the prescription is for a schedule II opioid drug., 169, cm, 02/14... Start Date: 02/16/23 Stop Date: 02/20/23 Status: Ordered traZODone 300 mg oral tablet [...] Active Morbid obesity Confirmed Active BHN/CCA/CP- [facility] [phone] [facility] active care coordination Confirmed Active Peripheral vascular disease - right SFA angioplasty/right great toe amputation 2021 Confirmed Active Severe obesity Confirmed Active Umbilical hernia Confirmed Active 1per 2017 and 2019 [facility] notes Social History Social History Type Response Smoking Status Never (less than 100 in lifetime) entered on: 09/03/19 Sex 1per pt Patient Care team information Care Team Personnel Name: Allegra Aguayo MD Position: S Resident Member Role: PCP Address: Address: [address] [place] [id number] Name: Mauricio RNBaljit Position: S RN Member Role: Primary Care Nurse Name: Sabine Guthrie RN Position: S RN Member Role: Primary Care Nurse Name: Aditi Hernandez RN Position: S RN Member Role: Primary Care Nurse Name: Piyush Moore RN Position: [facility] RN Member Role: Primary Care Nurse Name: Mis Vences RN Position: S RN Member Role: Primary Care Nurse Name: Angie Lopez RN Position: [facility] RN Member Role: Primary Care Nurse Name: Lizzie Estrada RN Position: [facility] Onco RN Member Role: Primary Care Nurse Care Team Related Persons Name: MIKEY SEAY Address: home [address] [address] Name: MIKEY AYALA Address: [address] [place] [address] Name: TANIA COPPOLA Address: home [address] [place] [address] Name: TANIA MUÑIZ Address: home [address] [place] [address]
--- OUTSIDE RECORDS SUMMARY | 2023-02-20 15:16 | XMS_ITS | Continuity of Care Document ---
Author Name Unknown Organization [facility] Address [address] [place] [address]- Care Team Providers Care Director Of Individual Giving Name Role Phone Olivier MOSHER, Allegra Primary Care Physician Encounter [facility] [place] Date(s): 10/31/22 - 11/30/22 [facility] [address] [place], [place] [address] Allergies, Adverse Reactions, Alerts Substance Reaction Severity Status ibuprofen ABD PAIN Active morphine Vomiting and itchy Active traMADol Itchy, Hives Active Immunizations Given and Recorded Vaccine Date Status Refusal Reason SARS-CoV-2 mRNA ([id number]) vax 02/22/22 Recorded SARS-CoV-2 (COVID-19) mRNA BNT-162b2 [...] Note: VIS GIVEN-DATED 05/30/11 2Result Comment: LOT [id number] EXP 04 MAY 2010 3Admin Note: VIS [...] 04/24/22 9:05:00 EDT, Route to Pharmacy Electronically, [facility], Partial fill upon patient request if the prescription is for a schedule II opio... Start Date: 04/24/22 Status: Ordered ammonium lactate 5% topical lotion 1 application, Topically, 2 times a day, # 240 Gm, 0 Refills, Maintenance, 05/01/22 12:34:00 EDT, Lotion, [facility]/pharmacy #[id number], Partial fill upon patient request if the prescription is for a schedule II opioid drug., 1 application Topically 2 times a da... Start Date: 05/01/22 Stop Date: 05/31/22 Status: Ordered aspirin 81 mg oral delayed release tablet 81 mg, By Mouth, Daily, # 30 tablet, Refills 0, Tot. Refills 0, Maintenance, 11/09/22 16:40:00 EST,Route to Pharmacy Electronically, [facility]/pharmacy #[id number], Partial fill upon patient request if the prescription is for a schedule II opioid drug., 169, cm,... Start Date: 11/09/22 Stop Date: 12/09/22 Status: Ordered atorvastatin 40 mg oral tablet 1 tablet = 40 mg, By Mouth, Daily, # 90 tablet, 2 Refills, Maintenance, 04/24/22 9:41:00 EDT, Tablet, [facility], Partial fill upon patient request [...] 07/26/22 16:13:00 EDT, Route to Pharmacy Electronically, [facility]/pharmacy #[id number], Partial fill upon patient request if the pres... Start Date: 07/26/22 Stop Date: 01/22/23 Status: Ordered carvedilol 25 mg oral tablet 25 mg, 1, tablet, By Mouth, 2 times a day, # 60 tablet, Refills 2, Tot. Refills 2, Maintenance, 01/22/23 16:13:00 EDT, Route to Pharmacy Electronically, [facility]/pharmacy #[id number], Partial fill upon patient request if the prescription is for a schedule II opi... Start Date: 01/22/23 Stop Date: 04/22/23 Status: Ordered Colace sodium 100 mg oral capsule 100 mg, 1, capsule, By Mouth, 2 times a day, PRN, # 60 capsule, Refills 0, Tot. Refills 0, Maintenance, for constipation, 03/16/22 14:30:00 EDT, Route to Pharmacy Electronically, [facility], Partial fill upon patient request [...] 0 Refills, Maintenance, 09/21/22 11:57:00 EST, Tablet, [facility]/pharmacy #[id number], Partial fill upon patient request [...] 10/16/22 10:25:00 EST, Route to Pharmacy Electronically, [facility] #[id number], Partial fill upon patientrequest if the prescription [...] Date: 10/03/22 Stop Date: 01/31/23 Status: Ordered Lasix 20 mg oral tablet 1, capsule, By Mouth, Once, take one pill daily for 3 days, # 3 tablet, Refills 0, Tot. Refills 0, Soft Stop, 09/20/22 11:19:00 EST, Route to Pharmacy Electronically, [facility]/pharmacy #[id number], Partial fillupon patient request if the prescription is for a s... Start Date: 09/20/22 Status: Ordered levoFLOXacin 250 mg oral tablet 1 tablet = 250 mg, By Mouth, Every 24 hours, # 14 tablet, 0 Refills, Maintenance, 09/20/22 11:28:00EST, Tablet, [facility]/pharmacy #[id number], Partial fill upon patient request if the prescription is for a schedule II opioid drug., 169, cm, 09/20/22 9:22:00 EST... Start Date: 09/20/22 Stop Date: 10/04/22 Status: Ordered lisinopril 10 mg oral tablet 10 mg, 1, tablet, By Mouth, Daily, # 90 tablet, Refills 0, Tot. Refills 0, Maintenance, 11/30/22 8:10:00 EST, Route to Pharmacy Electronically, [facility]/pharmacy #[id number], Partial fill upon patient request [...] 04/24/22 9:03:00 EDT, Route to Pharmacy Electronically, [facility], Partial fill upon patient request [...] drug., 1 application Topically Daily, 169, cm, 12/... Start Date: 11/22/22 Status: Ordered traZODone 300 [...] Gm, 0 Refills, Maintenance, 11/02/22 8:15:00 EST, [facility] #[id number], 169, cm, 11/01/22 11:21:00 EST, Height, 103.42, [...] Active Morbid obesity Confirmed Active BHN/CCA/CP- [facility] [phone] [facility] active care coordination Confirmed Active Peripheral vascular disease - right SFA angioplasty/right great toe amputation 2021 Confirmed Active Severe obesity (BMI 35.0-39.9) with comorbidity Confirmed Active Umbilical hernia Confirmed Active 1per 2017 and 2019 [facility] notes Social History Social History Type Response Smoking Status Never (less than 100 in lifetime) entered on: 09/03/19 Sex 1per pt Patient Care team information Care Team Personnel Name: Allegra Aguayo MD Position: S Resident Member Role: PCP Address: Address: [address] [place] [address] Name: Vera Locke RN Position: S RN Member Role: Primary Care Nurse Name: Mauricio RNBaljit Position: S RN Member Role: Primary Care Nurse Name: Sabine Guthrie RN Position: [facility] RN Member Role: Primary Care Nurse Name: Aditi Hernandez RN Position: S RN Member Role: Primary Care Nurse Name: Piyush Moore RN Position: [facility] RN Member Role: Primary Care Nurse Name: Mis Vences RN Position: [facility] RN Member Role: Primary Care Nurse Name: Angie Lopez RN Position: S RN Member Role: Primary Care Nurse Name: Lizzie Estrada RN Position: [facility] RN Member Role: Primary Care Nurse Care Team Related Persons Name: MIKEY SEYA Address: home [address] [address] Name: MIKEY AYALA Address: home [address] [place] [address] Name: TANIA COPPOLA Address: home [address] [place] [id number] Name: TANIA MUÑIZ Address: home [address] [place] [id number]
--- OUTSIDE RECORDS SUMMARY | 2023-02-20 15:16 | XMS_ITS | Continuity of Care Document ---
Author Name Unknown Organization [facility] Address [address] [place] [address]- Care Team Providers Care Customer Orders Clerk Name Role Phone Olivier MOSHER, Allegra Primary Care Physician [phone] Encounter [facility] [place] Date(s): 05/02/22 - 06/01/22 [facility] [address], [place] [address] Allergies, Adverse Reactions, Alerts Substance Reaction Severity Status ibuprofen ABD PAIN Active morphine Vomiting and itchy Active traMADol Itchy, Hives Active Immunizations Given and Recorded Vaccine Date Status Refusal Reason SARS-CoV-2 mRNA ([id number]) vax 02/22/22 Recorded SARS-CoV-2 (COVID-19) mRNA BNT-162b2 vac 08/11/21 Given SARS-CoV-2 (COVID-19) mRNA BNT-162b2 vac 07/20/21 Given tetanus-diphtheria toxoids (Td) 09/03/19 Given influenza virus vaccine, inactivated 1 08/15/11 Gi jean-paul influenza virus vaccine, inactivated 2 10/21/09 Gi jean-paul influenza virus vaccine, inactivated 09/16/08 Give n Tet/Diphth/Acel, Pertussis (oldterm) 3 10/14/08 Gi ejan-paul Pneumococcal Vaccine (oldterm) 09/16/08 Given Not Given Vaccine Date Status Refusal Reason pneumococcal 23-valent vaccine 05/31/19 Not Given Patient Refuses 1Admin Note: VIS GIVEN-DATED 05/30/11 2Result Comment: LOT [id number] EXP 04 MAY 2010 3Admin Note: VIS [...] 04/24/22 9:05:00 EDT, Route to Pharmacy Electronically, [facility], Partial fill upon patient request if the prescription is for a schedule II opio... Start Date: 04/24/22 Status: Ordered ammonium lactate 5% topical lotion 1 application, Topically, 2 times a day, # 240 Gm, 0 Refills, Maintenance, 05/01/22 12:34:00 EDT, Lotion, [facility]/pharmacy #[id number], Partial fill upon patient request if the prescription is for a schedule II opioid drug., 1 application Topically 2 times a da... Start Date: 05/01/22 Stop Date: 05/31/22 Status: Ordered aspirin 81 mg oral delayed release tablet 81 mg, By Mouth, Daily, # 30 tablet, Refills 5, Tot. Refills 5, Maintenance, 05/13/22 16:40:00 EDT,Route to Pharmacy Electronically, [facility], Partial fill upon patient request if the prescription is for a schedule II opioid drug.,... Start Date: 05/13/22 Stop Date: 11/09/22 Status: Ordered atorvastatin 40 mg oral tablet 1 tablet = 40 mg, By Mouth, Daily, # 90 tablet, 2 Refills, Maintenance, 04/24/22 9:41:00 EDT, Tablet, [facility]., Partial fill upon patient request if [...] 05/13/22 16:40:00 EDT, Route to Pharmacy Electronically, [facility], Partial fill upon patient request if the prescription is for a schedul... Start Date: 05/13/22 Stop Date: 11/09/22 Status: Ordered Colace sodium 100 mg oral capsule 100 mg, 1, capsule, By Mouth, 2 times a day, PRN, # 60 capsule, Refills 0, Tot. Refills 0, Maintenance, for constipation, 03/16/22 14:30:00 EDT, Route to Pharmacy Electronically, [facility], Partial fill upon patient request if the [...] 04/24/22 9:02:00 EDT, Route to Pharmacy Electronically, [facility], Partial fill upon patient request if the prescription is for a schedule II opio... Start Date: 04/24/22 Status: Ordered insulin aspart 100 units/mL subcutaneous solution = 20 units, Subcutaneous Injection, 3 times a day before meals, # 10 mL, 11 Refills, Maintenance, 03/10/22 9:06:00 EDT, Solution, [facility] #[id number], Partial fill upon patient request if theprescription [...] tablet, 1 Refills, Maintenance, 05/15/22 16:38:00 EDT, [facility]/pharmacy#[id number], resent - not recvd, 169, cm, 05/01/22 10:56:00 EDT, Height, 104.9, kg, 03/04/22 2:58:00 EDT,Dry Weight Start Date: 05/15/22 Status: Ordered Lantus 100 u/ml subcutaneous solution = 30 units, Subcutaneous Injection, 2 times a day, # 10 mL, 5 Refills, Maintenance, 03/10/22 9:05:00 EDT, Solution, [facility] #[id number], Partial fill upon patient request if the prescription is for a schedule II opioid drug., 169, cm, 03/09/22... Start Date: 03/10/22 Status: Ordered lisinopril 10 mg oral tablet 10 mg, 1, tablet, By Mouth, Daily, # 30 tablet, Refills 4, Tot. Refills 4, Maintenance, 04/24/22 9:41:00 EDT, Route to Pharmacy Electronically, [facility], Partial fill upon patient request if the [...] 06/01/22 14:50:00 EDT, [id number] fill upon patient... Start Date: 06/01/22 Stop Date: 06/08/22 Status: Ordered PARoxetine 40 mg oral tablet 40 mg, 1, tablet, By Mouth, Daily, Refills 0, Maintenance, 01/11/22 9:43:00 EST Start Date: 01/11/22 Status: Ordered Plavix 75 mg oral tablet 75 mg, 1, tablet, By Mouth, Daily, # 30 tablet, Refills 5, Tot. Refills 5, Maintenance, 04/24/22 9:03:00 EDT, Route to Pharmacy Electronically, [facility], Partial fill upon patient request if the [...] 0 Refills, Maintenance, 04/18/22 9:51:00 EDT, Aerosol, [facility], Partial fill upon patient request if the [...] 0 Refills, Maintenance, 03/09/22 14:21:00 EDT, Gel, [facility], Partial fill upon patient request if the p... Start Date: 03/09/22 Status: Ordered traZODone 300 mg oral tablet 1 tablet = 300 mg, By Mouth, Daily at bedtime Start Date: 03/03/22 Status: Ordered Trulicity Pen 3 mg/0.5 mL subcutaneous solution See Instructions, ADMINISTER 0.5 ML UNDER THE SKIN EVERY WEEK. ROTATE INJECTION SITES, # 2 mL, 11 Refills, 03/09/22 14:22:00 EDT, [facility]., 169, cm, 03/09/22 13:46:00 EDT, Height, 104.9, kg, 03/04/22 2:58:00 EDT, Dry Weight Start Date: 03/09/22 Status: Ordered Tylenol 8 Hour 650 mg oral tablet, extended release 2 tablet = 1,300 mg, By Mouth, Every 8 hours, PRN as needed for pain, # 24 tablet, 0 Refills, Maintenance, 04/24/22 9:43:00 EDT, ER Tablet, [facility], Partial fill upon patient request if the prescription is for a schedule II opioid d... Start Date: 04/24/22 Status: Ordered Ventolin HFA 108 mcg/inh inhalation aerosol with adapter 2 puffs, Inhalation, Every 6 hours, PRN Wheezing/Shortness of Breath, # 8 Gm, 1 Refills, Maintenance, 05/30/22 10:56:00 EDT, [facility], Partial fill upon patient request if the [...] Obese class II(Confirmed) Active BHN/CCA/Luis Felipe Peters [phone]/Health skilled nursing active care coordination(Confirmed) Active Peripheral vascular disease(Confirmed) Active Uncontrolled type 1 diabetes mellitus with hyperglycemia, with long-term current use of insulin(Confirmed) Active Umbilical hernia(Confirmed) Active 1per 2016 and 2018 [facility] notes Social History Social History Type Response Smoking Status Never (less than 100 in lifetime) entered on: 09/03/19 Sex 1per pt
--- OUTSIDE RECORDS SUMMARY | 2023-02-20 15:16 | XMS_ITS | Continuity of Care Document ---
Author Name Unknown Organization [facility] Address [address] [place] [address]- Care Team Providers Care Sander Machine Name Role Phone Josef MOSHER, Mamie Patterson Primary Care Physician Encounter [facility] Date(s): 05/20/21 - 06/19/21 [facility] [address], [place] [address] Attending Physician: Admtr, [id number] Allergies, Adverse Reactions, [...] Note: VIS GIVEN-DATED 05/30/11 2Result Comment: LOT [id number] EXP 04 MAY 2010 3Admin Note: VIS given Medications albuterol 90 mcg/inh inhalation powder 2 puffs, Inhalation, Every 6 hours, PRN as needed, # 1 each, 11 Refills, Maintenance, 05/23/21 19:37:00 EDT, Powder, [facility] #[id number], Patient Lost her inhailer, Will need a [...] 07/30/20 18:34:00 EDT, Route to Pharmacy Electronically, [facility] #[id number], 170, cm, 05/20/20 14:48:00 EDT, Height, 100.5, kg, 05/30/19 9:39:00 EDT, Dry... Start Date: 07/30/20 Stop Date: 07/25/21 Status: Ordered aspirin 81 mg oral delayed release tablet 81 mg, 1, tablet, By Mouth, Daily, # 30 tablet, Refills 11, Tot. Refills 11, Maintenance, 05/20/20 14:45:00 EDT, Route to Pharmacy Electronically, [facility] #[id number], 170, cm, 05/20/20 14:08:00 EDT, Height, 100.5, kg, 05/30/19 9:39:00 EDT, . Start Date: 05/20/20 Status: Ordered atorvastatin 10 mg oral tablet 1 tablet = 10 mg, By Mouth, Daily, # 90 tablet, 1 Refills, Maintenance, 05/05/21 10:09:00 EDT, [facility] #[id number], 170, cm, 12/21/20 9:18:00 EST, Height, 100.5, [...] tablet, 0 Refills, Maintenance, 03/28/21 10:39:00 EDT, [facility] #[id number], 170, cm, 12/21/20 9:18:00 EST, Height, 100.5, kg, 05/30/19 9:39:00 EDT, Dry Weight Start Date: 03/28/21 Status: Ordered Lantus Solostar Pen 100 units/mL subcutaneous solution See Instructions, Inject 40 units under the skin twice daily., # 24 mL, 2 Refills, Maintenance, 05/10/21 14:21:00 EDT, [facility] #[id number], 170, cm, 12/21/20 9:18:00 EST, Height, 100.5, kg, 05/30/19 9:39:00 EDT, Dry Weight Start Date: 05/10/21 Status: Ordered lisinopril 40 mg oral tablet 1 tablet = 40 mg, By Mouth, Daily, # 90 tablet, 4 Refills, Maintenance, 02/03/20 12:39:00 EDT, Tablet, [facility] #[id number], 170, cm, 12/16/19 10:11:00 EST, Height, 100.5, kg, 05/30/19 9:39:00EDT, Dry Weight Start Date: 02/03/20 Stop Date: 04/28/21 Status: Ordered Melatonin 5 mg oral tablet 0 Refills, Maintenance, 01/29/19 10:09:09 EDT Start Date: 01/29/19 Status: Ordered NovoLOG FlexPen 100 units/mL injectable solution See Instructions, INJECT 20 UNITS SUBCUTANEOULSY THREE TIMES DAILY BEFORE MEALS., # 48 mL, 0 Refills, 03/30/21 11:25:00 EDT, [facility] #[id number], 170, cm, 12/21/20 9:18:00 EST, Height, 100.5,kg, 05/30/19 9:39:00 EDT, Dry Weight Start Date: 03/30/21 Status: Ordered OXcarbazepine 300 mg oral tablet TK 1 T PO BID Start Date: 01/29/19 Status: Ordered PARoxetine 40 mg oral tablet TK 1 T PO HS Start Date: 01/29/19 Status: Ordered Pen [place], 31 G x 5 mm BD Ultra Fine III See Instructions, # 150 each, Refills 11, Tot. Refills 11, Maintenance, use to inject insulin up tofive times daily dx e11.9, 12/17/20 15:55:00 EST, Supply, 170, cm, 05/20/20 14:48:00 EDT, Height, 100.5, kg, 05/30/19 9:39:00 EDT, Dry Weight Start Date: 10/21/20 Status: Ordered Pen [place], 31 G x 5 mm BD [...] WEEK, # 2 mL, 5 Refills, Maintenance, [facility] #[id number], 170, cm, 05/20/21 15:42:00 EDT, Height Start [...] Microalbuminuria(Confirmed) Active Morbid obesity(Confirmed) Active BHN/CCA/AUDRA-Mignon Peters [phone]/Health halfway active care coordination(Confirmed) Active Peripheral vascular disease(Confirmed) Active Umbilical hernia(Confirmed) Active 1per 2016 and 2018 [facility] notes Social History Social History Type Response Smoking Status Never (less than 100 in lifetime) entered on: 09/03/19 Sex Female 1per pt
--- OUTSIDE RECORDS SUMMARY | 2023-02-20 15:16 | XMS_ITS | Continuity of Care Document ---
Author Name Unknown Organization [facility] Address [address] [place] [address]- Care Team Providers Care Graduate Engineer Name Role Phone Olivier MOSHER, Allegra Primary Care Physician [place] [facility] [place] 12[place]15/22 [facility] [address] [place] [address]- Allergies, Adverse Reactions, Alerts Substance Reaction Severity Status ibuprofen ABD PAIN Active traMADol Itchy, Hives Active morphine Vomiting and itchy Active Immunizations Given and Recorded Vaccine Date Status Refusal Reason SARS-CoV-2 mRNA ([id number]) vax 02/22/22 Recorded SARS-CoV-2 (COVID-19) mRNA BNT-162b2 [...] Note: VIS GIVEN-DATED 05/30/11 2Result Comment: LOT [id number] EXP 04 MAY 2010 3Admin Note: VIS [...] Refills, Maintenance, 05/01/22 12:34:00 EDT, Lotion, [facility]/pharmacy #[id number], Partial fill upon patient request if the prescription is for a schedule II opioid drug., 1 application Topically 2 times a da... Start Date: 05/01/22 Stop Date: 05/31/22 Status: Ordered aspirin 81 mg oral delayed release tablet 81 mg, By Mouth, Daily, # 30 tablet, Refills 0, Tot. Refills 0, Maintenance, 11/09/22 16:40:00 EST,Route to Pharmacy Electronically, [facility]/pharmacy #[id number], Partial fill upon patient request if the prescription is for a schedule II opioid drug., 169, cm,... Start Date: 11/09/22 Stop Date: 12/09/22 Status: Ordered atorvastatin 40 mg oral tablet 1 tablet = 40 mg, By Mouth, Daily, # 90 tablet, 2 Refills, Maintenance, 04/24/22 9:41:00 EDT, Tablet, [facility], Partial fill [...] 16:13:00 EDT, Route to Pharmacy Electronically, [facility]/pharmacy #[id number], Partial fill upon patient request if the pres... Start Date: 07/26/22 Stop Date: 01/22/23 Status: Ordered carvedilol 25 mg oral tablet 25 mg, 1, tablet, By Mouth, 2 times a day, # 60 tablet, Refills 2, Tot. Refills 2, Maintenance, 01/22/23 16:13:00 EDT, Route to Pharmacy Electronically, [facility]acy #[id number], Partial fill upon patient request if [...] Refills, Maintenance, 09/21/22 11:57:00 EST, Tablet, [facility]/pharmacy #[id number], Partial fill upon patient request if [...] Route to Pharmacy Electronically, [facility] #[id number], Partial fill upon patientrequest if the prescription [...] each, 0 Refills, Maintenance, 12/04/22 15:48:00 EST, [facility]/pharmacy #[id number], Partial fill upon patient request if the prescription is for a schedule II opioid drug., 169, cm, 11/28/22... Start Date: 12/04/22 Stop Date: 01/03/23 Status: Ordered Lasix 20 mg oral tablet 1, capsule, By Mouth, Once, take one pill daily for 3 days, # 3 tablet, Refills 0, Tot. Refills 0, Soft Stop, 09/20/22 11:19:00 EST, Route to Pharmacy Electronically, [facility]/pharmacy #[id number], Partial fillupon patient request if the prescription is for a s... Start Date: 09/20/22 Status: Ordered levoFLOXacin 250 mg oral tablet 1 tablet = 250 mg, By Mouth, Every 24 hours, # 14 tablet, 0 Refills, Maintenance, 09/20/22 11:28:00EST, Tablet, [facility]/pharmacy #[id number], Partial fill upon patient request if the prescription is for a schedule II opioid drug., 169, cm, 09/20/22 9:22:00 EST... Start Date: 09/20/22 Stop Date: 10/04/22 Status: Ordered lisinopril 10 mg oral tablet 10 mg, 1, tablet, By Mouth, Daily, # 90 tablet, Refills 0, Tot. Refills 0, Maintenance, 11/30/22 8:10:00 EST, Route to Pharmacy Electronically, [facility]/pharmacy #[id number], Partial fill upon patient request if [...] tablet, 0 Refills, Maintenance, 11/28/22 13:29:00 EST, [facility]/pharmacy #[id number], Partial fill upon patient request if the prescription is for a schedule II opioid drug., 169,... Start Date: 11/28/22 Status: Ordered oxyCODONE 10 mg oral tablet 1 tablet = 10 mg, By Mouth, Every 12 hours, PRN Pain , Moderate, # 30 tablet, 0 Refills, Maintenance, 12/15/22 18:43:00 EST, [facility] #[id number], Partial fill upon patient request if the prescription is for a schedule II opioid drug., 169, cm, 11/28/22... Start Date: 12/15/22 Status: Ordered PARoxetine 40 mg oral tablet 40 mg, 1, tablet, By Mouth, Daily, Refills 0, Maintenance, 01/11/22 9:43:00 EST Start Date: 01/11/22 Status: Ordered Pen [place], 31 G x 5 mm BD Ultra [...] 0 Refills, Maintenance, 11/22/22 12:11:00 EST, Ointment, [facility]/pharmacy #[id number], Partial fill upon patient request if [...] Active Morbid obesity Confirmed Active BHN/CCA/CP- [facility] [phone] senior living active care coordination Confirmed Active Peripheral vascular disease - right SFA angioplasty/right great toe amputation 2021 Confirmed Active Severe obesity (BMI 35.0-39.9) with comorbidity Confirmed Active Umbilical hernia Confirmed Active 1per 2017 and 2019 [facility] notes Social History Social History Type Response Smoking Status Never (less than 100 in lifetime) entered on: 09/03/19 Sex 1per pt Patient Care team information Care Team Personnel Name: Allegra Aguayo MD Position: [facility] Resident Member Role: PCP Address: Address: [address] [place] [address] [place], [place] [address] Name: Vera Locke RN Position: S RN Member Role: Primary Care Nurse Name: Baljit Martínez RN Position: [facility] RN Member Role: Primary Care Nurse Name: Sabine Guthrie RN Position: [facility] RN Member Role: Primary Care Nurse Name: Aditi Hernandez RN Position: [facility] RN Member Role: Primary Care Nurse Name: Piyush Moore RN Position: [facility] RN Member Role: Primary Care Nurse Name: Mis Vences RN Position: [facility] RN Member Role: Primary Care Nurse Name: Angie Lopez RN Position: [facility] RN Member Role: Primary Care Nurse Name: Lizzie Estrada RN Position: [facility] RN Member Role: Primary Care Nurse Care Team Related Persons Name: MIKEY SEAY Address: home [address] [address] Name: MIKEY AYALA Address: home [address] [place] [address] Name: TANIA COPPOLA Address: home [address] [place] [id number] Name: TANIA MUÑIZ Address: home [address] [place] [address]
--- OUTSIDE RECORDS SUMMARY | 2023-02-20 15:16 | XMS_ITS | Continuity of Care Document ---
Author Name Unknown Organization [facility] Address [address] [place] [address]- Care Team Providers Care Household Appliances Salesperson Name Role Phone Josef MOSHER, Mamie Patterson Primary Care Physician Encounter [facility] [place] Date(s): 05/05/21 - 06/04/21 [facility] [address], [place] [address] Allergies, Adverse Reactions, Alerts Substance [...] Note: VIS GIVEN-DATED 05/30/11 2Result Comment: LOT [id number] EXP 04 MAY 2010 3Admin Note: VIS given Medications albuterol 90 mcg/inh inhalation powder 2 puffs, Inhalation, Every 6 hours, PRN as needed, # 1 each, 11 Refills, Maintenance, 05/23/21 19:37:00 EDT, Powder, [facility] #[id number], Patient Lost her inhailer, Will need a [...] 07/30/20 18:34:00 EDT, Route to Pharmacy Electronically, [facility] #[id number], 170, cm, 05/20/20 14:48:00 EDT, Height, 100.5, kg, 05/30/19 9:39:00 EDT, Dry... Start Date: 07/30/20 Stop Date: 07/25/21 Status: Ordered aspirin 81 mg oral delayed release tablet 81 mg, 1, tablet, By Mouth, Daily, # 30 tablet, Refills 11, Tot. Refills 11, Maintenance, 05/20/20 14:45:00 EDT, Route to Pharmacy Electronically, [facility] #[id number], 170, cm, 05/20/20 14:08:00 EDT, Height, 100.5, kg, 05/30/19 9:39:00 EDT, [facility]. Start Date: 05/20/20 Status: Ordered atorvastatin 10 mg oral tablet 1 tablet = 10 mg, By Mouth, Daily, # 90 tablet, 1 Refills, Maintenance, 05/05/21 10:09:00 EDT, [facility] #[id number], 170, cm, 12/21/20 9:18:00 EST, Height, 100.5, [...] tablet, 0 Refills, Maintenance, 03/28/21 10:39:00 EDT, [facility] #[id number], 170, cm, 12/21/20 9:18:00 EST, Height, 100.5, kg, 05/30/19 9:39:00 EDT, Dry Weight Start Date: 03/28/21 Status: Ordered Lantus Solostar Pen 100 units/mL subcutaneous solution See Instructions, Inject 40 units under the skin twice daily., # 24 mL, 2 Refills, Maintenance, 05/10/21 14:21:00 EDT, [facility] #[id number], 170, cm, 12/21/20 9:18:00 EST, Height, 100.5, kg, 05/30/19 9:39:00 EDT, Dry Weight Start Date: 05/10/21 Status: Ordered lisinopril 40 mg oral tablet 1 tablet = 40 mg, By Mouth, Daily, # 90 tablet, 4 Refills, Maintenance, 02/03/20 12:39:00 EDT, Tablet, [facility] #[id number], 170, cm, 12/16/19 10:11:00 EST, Height, 100.5, kg, 05/30/19 9:39:00EDT, Dry Weight Start Date: 02/03/20 Stop Date: 04/28/21 Status: Ordered Melatonin 5 mg oral tablet 0 Refills, Maintenance, 01/29/19 10:09:09 EDT Start Date: 01/29/19 Status: Ordered NovoLOG FlexPen 100 units/mL injectable solution See Instructions, INJECT 20 UNITS SUBCUTANEOULSY THREE TIMES DAILY BEFORE MEALS., # 48 mL, 0 Refills, 03/30/21 11:25:00 EDT, [facility] #[id number], 170, cm, 12/21/20 9:18:00 EST, Height, 100.5,kg, 05/30/19 9:39:00 EDT, Dry Weight Start Date: 03/30/21 Status: Ordered OXcarbazepine 300 mg oral tablet TK 1 T PO BID Start Date: 01/29/19 Status: Ordered PARoxetine 40 mg oral tablet TK 1 T PO HS Start Date: 01/29/19 Status: Ordered Pen [place], 31 G x 5 mm BD Ultra Fine III See Instructions, # 150 each, Refills 11, Tot. Refills 11, Maintenance, use to inject insulin up tofive times daily dx e11.9, 10/21/20 15:55:00 EST, Supply, 170, cm, 05/20/20 14:48:00 EDT, Height, 100.5, kg, 05/30/19 9:39:00 EDT, Dry Weight Start Date: 10/21/20 Status: Ordered Pen [place], 31 G x 5 mm BD Ultra [...] 5 Refills, Maintenance, 02/01/21 14:49:00 EDT, Solution, [id number], to replace 0.75 mg dose, 170, cm, [...] Microalbuminuria(Confirmed) Active Morbid obesity(Confirmed) Active BHN/KELVIN/AUDRA-Mignon Peters [phone]/Health long-term active care coordination(Confirmed) Active Peripheral vascular disease(Confirmed) Active Umbilical hernia(Confirmed) Active 1per 2016 and 2018 [facility] notes Social History Social History Type Response Smoking Status Never (less than 100 in lifetime) entered on: 09/03/19 Sex Female 1per pt
--- OUTSIDE RECORDS SUMMARY | 2023-02-20 15:16 | XMS_ITS | Continuity of Care Document ---
Author Name Unknown Organization [facility] Address [address] [place] [address]- Care Team Providers Care General Cargo Clerk Name Role Phone Sangeetha MOSHER, Marcia Koroma Primary Care Physician Encounter [facility] Date(s): 03/28/21 - 04/27/21 [facility] [address] [place] [address]- Allergies, Adverse Reactions, Alerts Substance Reaction Severity [...] Note: VIS GIVEN-DATED 05/30/11 2Result Comment: LOT [id number] EXP 04 MAY 2010 3Admin Note: VIS given Medications albuterol 90 mcg/inh inhalation powder 2 puffs, Inhalation, Every 6 hours, PRN as needed, # 1 each, 11 Refills, Maintenance, 12/08/20 11:02:00 EST, Powder, [facility] #[id number], 2 puffs Inhalation Every 6 hours,PRN:as needed, [...] 07/30/20 18:34:00 EDT, Route to Pharmacy Electronically, [facility] #[id number], 170, cm, 05/20/20 14:48:00 EDT, Height, 100.5, kg, 05/30/19 9:39:00 EDT, Dry... Start Date: 07/30/20 Stop Date: 07/25/21 Status: Ordered aspirin 81 mg oral delayed release tablet 81 mg, 1, tablet, By Mouth, Daily, # 30 tablet, Refills 11, Tot. Refills 11, Maintenance, 05/20/20 14:45:00 EDT, Route to Pharmacy Electronically, [facility] #[id number], 170, cm, 05/20/20 14:08:00 EDT, Height, 100.5, kg, 05/30/19 9:39:00 EDT, Start Date: 05/20/20 Status: Ordered atorvastatin 10 mg oral tablet 1 tablet = 10 mg, By Mouth, Daily, # 30 tablet, 11 Refills, Maintenance, 05/20/20 14:46:00 EDT, [facility] #[id number], 170, cm, 05/20/20 14:08:00 EDT, Height, 100.5, [...] tablet, 0 Refills, Maintenance, 03/28/21 10:39:00 EDT, [facility] #[id number], 170, cm, 12/21/20 9:18:00 EST, Height, 100.5, kg, 05/30/19 9:39:00 EDT, Dry Weight Start Date: 03/28/21 Status: Ordered Lantus Solostar Pen 100 units/mL subcutaneous solution See Instructions, Inject 40 units under the skin twice daily., # 24 mL, 3 Refills, Maintenance, 01/29/21 9:00:00 EDT, [facility] #[id number], 170, cm, 12/21/20 9:18:00 EST, Height, 100.5, kg, 05/30/19 9:39:00 EDT, Dry Weight Start Date: 01/29/21 Status: Ordered lisinopril 40 mg oral tablet 1 tablet = 40 mg, By Mouth, Daily, # 90 tablet, 4 Refills, Maintenance, 02/03/20 12:39:00 EDT, Tablet, [facility] #[id number], 170, cm, 12/16/19 10:11:00 EST, Height, 100.5, kg, 05/30/19 9:39:00EDT, Dry Weight Start Date: 02/03/20 Stop Date: 04/28/21 Status: Ordered Melatonin 5 mg oral tablet 0 Refills, Maintenance, 01/29/19 10:09:09 EDT Start Date: 01/29/19 Status: Ordered NovoLOG FlexPen 100 units/mL injectable solution See Instructions, INJECT 20 UNITS SUBCUTANEOULSY THREE TIMES DAILY BEFORE MEALS., # 48 mL, 0 Refills, 03/30/21 11:25:00 EDT, [facility] #[id number], 170, cm, 12/21/20 9:18:00 EST, Height, 100.5,kg, 05/30/19 9:39:00 EDT, Dry Weight Start Date: 03/30/21 Status: Ordered OXcarbazepine 300 mg oral tablet TK 1 T PO BID Start Date: 01/29/19 Status: Ordered PARoxetine 40 mg oral tablet TK 1 T PO HS Start Date: 01/29/19 Status: Ordered Pen Malcolm, 31 G x 5 mm BD Ultra Fine III See Instructions, # 150 each, Refills 11, Tot. Refills 11, Maintenance, use to inject insulin up tofive times daily dx e11.9, 10/21/20 15:55:00 EST, Supply, 170, cm, 05/20/20 14:48:00 EDT, Height, 100.5, kg, 05/30/19 9:39:00 EDT, Dry Weight Start Date: 10/21/20 Status: Ordered Pen Malcolm, 31 G x 5 mm BD Ultra [...] 5 Refills, Maintenance, 02/01/21 14:49:00 EDT, Solution, [facility] #[id number], to replace 0.75 mg dose, 170, cm, [...] Microalbuminuria(Confirmed) Active Morbid obesity(Confirmed) Active BHN/CCA/AUDRA-Mignon Peters [phone]/Health nursing home active care coordination(Confirmed) Active Peripheral vascular disease(Confirmed) Active Umbilical hernia(Confirmed) Active 1per 2016 and 2018 [facility] notes Social History Social History Type Response Smoking Status Never (less than 100 in lifetime) entered on: 09/03/19 Sex Female 1per pt
--- OUTSIDE RECORDS SUMMARY | 2023-02-20 15:16 | XMS_ITS | Continuity of Care Document ---
Author Name Unknown Organization [facility] Address [address] [place] [address]- Care Team Providers Care Plate Grainer Apprentice Name Role Phone Olivier MOSHER, Allegra Primary Care Physician [phone] Encounter [facility] Date(s): 10/02/22 - 11/01/22 [facility] [address] [place], [place] [address] Allergies, Adverse Reactions, Alerts Substance Reaction Severity Status ibuprofen ABD PAIN Active morphine Vomiting and itchy Active traMADol Itchy, Hives Active Immunizations Given and Recorded Vaccine Date Status Refusal Reason SARS-CoV-2 mRNA ([id number]-mila-alodq) vax 02/22/22 Recorded SARS-CoV-2 (COVID-19) mRNA BNT-162b2 [...] Note: VIS GIVEN-DATED 05/30/11 2Result Comment: LOT [id number] EXP 04 MAY 2010 3Admin Note: VIS [...] 04/24/22 9:05:00 EDT, Route to Pharmacy Electronically, [facility], Partial fill upon patient request if the prescription is for a schedule II opio... Start Date: 04/24/22 Status: Ordered ammonium lactate 5% topical lotion 1 application, Topically, 2 times a day, # 240 Gm, 0 Refills, Maintenance, 05/01/22 12:34:00 EDT, Lotion, [facility]/pharmacy #[id number], Partial fill upon patient [...] 05/13/22 16:40:00 EDT, Route to Pharmacy Electronically, [facility], Partial fill upon patient request if the prescription is... Start Date: 05/13/22 Stop Date: 11/09/22 Status: Ordered aspirin 81 mg oral delayed release tablet 81 mg, By Mouth, Daily, # 30 tablet, Refills 0, Tot. Refills 0, Maintenance, 11/09/22 16:40:00 EST,Route to Pharmacy Electronically, [facility]/pharmacy #[id number], Partial fill upon patient request if the prescription is for a schedule II opioid drug., 169, cm,... Start Date: 11/09/22 Stop Date: 12/09/22 Status: Ordered atorvastatin 40 mg oral tablet 1 tablet = 40 mg, By Mouth, Daily, # 90 tablet, 2 Refills, Maintenance, 04/24/22 9:41:00 EDT, Tablet, [facility], Partial fill upon patient request [...] 07/26/22 16:13:00 EDT, Route to Pharmacy Electronically, [facility]/pharmacy #[id number], Partial fill upon patient request if the pres... Start Date: 07/26/22 Stop Date: 01/22/23 Status: Ordered carvedilol 25 mg oral tablet 25 mg, 1, tablet, By Mouth, 2 times a day, # 60 tablet, Refills 2, Tot. Refills 2, Maintenance, 01/22/23 16:13:00 EDT, Route to Pharmacy Electronically, [facility]/pharmacy #[id number], Partial fill upon patient request if the prescription is for a schedule II opi... Start Date: 01/22/23 Stop Date: 04/22/23 Status: Ordered Colace sodium 100 mg oral capsule 100 mg, 1, capsule, By Mouth, 2 times a day, PRN, # 60 capsule, Refills 0, Tot. Refills 0, Maintenance, for constipation, 03/16/22 14:30:00 EDT, Route to Pharmacy Electronically, [facility], Partial fill upon patient request [...] 0 Refills, Maintenance, 09/21/22 11:57:00 EST, Tablet, [facility]/pharmacy #[id number], Partial fill upon patient [...] 10/16/22 10:25:00 EST, Route to Pharmacy Electronically, [facility] #[id number], Partial fill upon patientrequest if the prescription [...] Refills, Soft Stop, 10/16/22 8:19:00 EST, Solution, [facility]/pharmacy #[id number], Partial fill upon patient [...] 09/20/22 11:19:00 EST, Route to Pharmacy Electronically, [facility]/pharmacy #[id number], Partial fillupon patient request [...] 10/16/22 10:24:00 EST, Route to Pharmacy Electronically, [facility] #[id number], Partial fill upon patientrequest if the prescription is for a schedule II op... Start Date: 10/16/22 Stop Date: 04/14/23 Status: Ordered NovoLOG FlexPen 100 units/mL injectable solution = 20 units, Subcutaneous Injection, 3 times a day before meals, INJECT 20 UNITS INTO SKIN THREE TIMES DAILY BEFORE A MEAL, # 15 mL, 10 Refills, Maintenance, 08/01/22 16:09:00 EDT, [facility]., 169, cm, 08/01/22 14:14:00 EDT, Height, [...] Acute 11/15/22 10:46:00 EST, 11/01/22 10:46:00 EST, [facility]/pharmacy #[id number], Partial fill upon patient [...] 04/24/22 9:03:00 EDT, Route to Pharmacy Electronically, [facility], Partial fill upon patient request if the prescription is for a schedule II opio... Start Date: 04/24/22 Status: Ordered ProAir HFA 90 mcg/inh inhalation aerosol 1 puffs, Inhalation, Every 4 hours, PRN as needed for wheezing, # 18 Gm, 0 Refills, Maintenance, 10/03/22 6:38:00 EST, Aerosol, [facility] #[id number], Partial fill upon patient request if the [...] 2 Refills, Maintenance, 10/16/22 13:14:00 EST, Solution, [facility]/pharmacy #[id number], Partial fill upon patient request if the prescription is for a schedule II opioid drug., 169, cm, 10/09/22 8:39... Start Date: 10/16/22 Status: Ordered Ventolin HFA 108 mcg/inh inhalation aerosol with adapter 2 puffs, Inhalation, Every 6 hours, PRN Wheezing/Shortness of Breath, # 8 Gm, 1 Refills, Maintenance, 05/30/22 10:56:00 EDT, [facility], Partial fill upon patient request [...] Active Morbid obesity Confirmed Active BHN/CCA/CP- Angle [id number] correction active care coordination Confirmed Active Peripheral vascular disease - right SFA angioplasty/right great toe amputation 2021 Confirmed Active Severe obesity (BMI 35.0-39.9) with comorbidity Confirmed Active Umbilical hernia Confirmed Active 1per 2017 and 2019 [facility] notes Social History Social History Type Response Smoking Status Never (less than 100 in lifetime) entered on: 09/03/19 Sex 1per pt Patient Care team information Care Team Personnel Name: Allegra Aguayo MD Position: [facility] Resident Member Role: PCP Address: Address: [address] [place] [address] [place], [place] [address] Name: Vera Locke RN Position: S RN Member Role: Primary Care Nurse Name: Baljit Martínez RN Position: [facility] RN Member Role: Primary Care Nurse Name: Sabine Guthrie RN Position: [facility] RN Member Role: Primary Care Nurse Name: Aditi Hernandez RN Position: S RN Member Role: Primary Care Nurse Name: Piyush Moore RN Position: [facility] RN Member Role: Primary Care Nurse Name: Mis Vences RN Position: S RN Member Role: Primary Care Nurse Name: Angie Lopez RN Position: [facility] RN Member Role: Primary Care Nurse Name: Lizzie Estrada RN Position: [facility] RN Member Role: Primary Care Nurse Care Team Related Persons Name: MIKEY SEAY Address: home [address] [address] Name: MIKEY AYALA Address: home [address] [place] [address] Name: TANIA COPPOLA Address: home [address] [place] [address] Name: TANIA MUÑIZ Address: home [address] [place] [id number]
--- OUTSIDE RECORDS SUMMARY | 2023-02-20 15:16 | XMS_ITS | Continuity of Care Document ---
Author Name Unknown Organization [facility] ter Address [address] [place] [address]- Care Team Providers Care Porcelain Enamel Sprayer Name Role Phone Josef MOSHER, Mamie Patterson Primary Care Physician Encounter [facility] Date(s): 04/26/22 - 04/27/[address] [address]- Encounter Diagnosis Foot pain(Final) - 04/27/22 Discharge Disposition: A-D/C Home Attending Physician: Renee Choudhary MD Admitting Physician: Renee Choudhary MD Referring Physician: Not on Staff, Referring MD Allergies, Adverse Reactions, Alerts Substance Reaction Severity Status ibuprofen ABD PAIN Active morphine Vomiting and itchy Active traMADol Itchy, Hives Active Immunizations Given and Recorded Vaccine Date Status Refusal Reason SARS-CoV-2 mRNA ([id number]-[id number]) vax 02/22/22 Recorded SARS-CoV-2 (COVID-19) mRNA BNT-162b2 [...] Note: VIS GIVEN-DATED 05/30/11 2Result Comment: LOT [id number] EXP 04 MAY 2010 3Admin Note: VIS [...] 04/24/22 9:05:00 EDT, Route to Pharmacy Electronically, [facility], Partial fill upon patient request if the prescription is for a schedule II opio... Start Date: 04/24/22 Status: Ordered aspirin 81 mg oral delayed release tablet 81 mg, By Mouth, Daily, # 30 tablet, Refills 5, Tot. Refills 5, Maintenance, 05/13/22 16:40:00 EDT,Route to Pharmacy Electronically, [facility], Partial fill upon patient request if the prescription is for a schedule II opioid drug.,... Start Date: 05/13/22 Stop Date: 11/09/22 Status: Ordered aspirin 81 mg oral delayed release tablet 81 mg, By Mouth, Daily, for 30 days, # 30 tablet, Refills 0, Tot. Refills 0, Hard Stop 05/13/22 16:40:00 EDT, 04/13/22 16:40:00 EDT, Route to Pharmacy Electronically, [facility], Partial fill upon patient request if the prescription is f... Start Date: 04/13/22 Stop Date: 05/13/22 Status: Ordered atorvastatin 40 mg oral tablet 1 tablet = 40 mg, By Mouth, Daily, # 90 tablet, 2 Refills, Maintenance, 04/24/22 9:41:00 EDT, Tablet, [facility], Partial fill upon patient request if [...] 05/13/22 16:40:00 EDT, Route to Pharmacy Electronically, [facility], Partial fill upon patient request if the prescription is for a schedul... Start Date: 05/13/22 Stop Date: 11/09/22 Status: Ordered carvedilol 25 mg oral tablet 25 mg, 1, tablet, By Mouth, 2 times a day, for 30 days, # 60 tablet, Refills 0, Tot. Refills 0, Hard Stop 05/13/22 16:40:00 EDT, 04/13/22 16:40:00 EDT, Route to Pharmacy Electronically, [facility], Partial fill upon patient request if th... Start Date: 04/13/22 Stop Date: 05/13/22 Status: Ordered Colace sodium 100 mg oral capsule 100 mg, 1, capsule, By Mouth, 2 times a day, PRN, # 60 capsule, Refills 0, Tot. Refills 0, Maintenance, for constipation, 03/16/22 14:30:00 EDT, Route to Pharmacy Electronically, [facility], Partial fill upon patient request if [...] 05/11/22 8:04:00 EDT, 04/27/22 8:04:00 EDT, Capsule, [facility], Partial fill upon patient request if [...] 04/24/22 9:02:00 EDT, Route to Pharmacy Electronically, [facility], Partial fill upon patient request if the prescription is for a schedule II opio... Start Date: 04/24/22 Status: Ordered insulin aspart 100 units/mL subcutaneous solution = 20 units, Subcutaneous Injection, 3 times a day before meals, # 10 mL, 11 Refills, Maintenance, 03/10/22 9:06:00 EDT, [id number], Partial fill upon patient request if theprescription [...] tablet, 11 Refills, Maintenance, 03/09/22 14:23:00 EDT, [facility], resent - not recvd, 169, cm, 03/09/22 13:46:00 EDT, Height, 104.9, kg, 03/04/22 2:58:00 EDT, Dry Weight Start Date: 03/09/22 Status: Ordered Lantus 100 u/ml subcutaneous solution = 30 units, Subcutaneous Injection, 2 times a day, # 10 mL, 5 Refills, Maintenance, 03/10/22 9:05:00 EDT, [place], [facility] #[id number], Partial fill upon patient request if the prescription is for a schedule II opioid drug., 169, cm, 03/09/22... Start Date: 03/10/22 Status: Ordered lisinopril 10 mg oral tablet 10 mg, 1, tablet, By Mouth, Daily, # 30 tablet, Refills 4, Tot. Refills 4, Maintenance, 04/24/22 9:41:00 EDT, Route to Pharmacy Electronically, [facility], Partial fill upon patient request if [...] 04/24/22 13:25:00 EDT, [id number], Partial fill upon patient request if t... Start Date: 04/24/22 Stop Date: 05/24/22 Status: Ordered oxyCODONE 5 mg oral tablet 10 mg, Tablet, By Mouth, Once, PRN for Pain , Moderate, Routine, 04/27/22 7:47:00 EDT Start Date: 04/27/22 Stop Date: 04/27/22 Status: Completed PARoxetine 40 mg oral tablet 40 mg, 1, tablet, By Mouth, Daily, Refills 0, Maintenance, 01/11/22 9:43:00 EST Start Date: 01/11/22 Status: Ordered Plavix 75 mg oral tablet 75 mg, 1, tablet, By Mouth, Daily, # 30 tablet, Refills 5, Tot. Refills 5, Maintenance, 04/24/22 9:03:00 EDT, Route to Pharmacy Electronically, [facility], Partial fill upon patient request if [...] 0 Refills, Maintenance, 04/18/22 9:51:00 EDT, Aerosol, [facility], Partial fill upon patient request if [...] 0 Refills, Maintenance, 03/09/22 14:21:00 EDT, Gel, [facility], Partial fill upon patient request if the p... Start Date: 03/09/22 Status: Ordered traZODone 300 mg oral tablet 1 tablet = 300 mg, By Mouth, Daily at bedtime Start Date: 03/03/22 Status: Ordered Trulicity Pen 3 mg/0.5 mL subcutaneous solution See Instructions, ADMINISTER 0.5 ML UNDER THE SKIN EVERY WEEK. ROTATE INJECTION SITES, # 2 mL, 11 Refills, 03/09/22 14:22:00 EDT, [facility]., 169, cm, 03/09/22 13:46:00 EDT, Height, 104.9, kg, 03/04/22 2:58:00 EDT, Dry Weight Start Date: 03/09/22 Status: Ordered Tylenol 8 Hour 650 mg oral tablet, extended release 2 tablet = 1,300 mg, By Mouth, Every 8 hours, PRN as needed for pain, # 24 tablet, 0 Refills, Maintenance, 04/24/22 9:43:00 EDT, ER Tablet, [facility], Partial fill upon patient request if [...] Morbid obesity(Confirmed) Active Obese class II(Confirmed) Active N/CCA/Luis Felipe Peters [phone]/Health nursing home active care coordination(Confirmed) Active Peripheral vascular disease(Confirmed) Active Uncontrolled type 1 diabetes mellitus with hyperglycemia, with long-term current use of insulin(Confirmed) Active Umbilical hernia(Confirmed) Active 1per 2016 and 2018 [facility] notes Results Radiology Reports * Exam Date Time Procedure Performing Provider Status 04/27/22 6:27 AM Chest 2 Views Frontal and Lat Teodoro Coles; Auth (Verified) Notes: (Chest 2 Views Frontal and Lat) Reason For Exam: Chest Pain;Other: RESULT: Chest 2 Views Frontal and Lat Chest 2 Views Frontal and Lat Hx of Present Illness: R foot wound; Reason: Other:; Chest Pain; Clinical Question(s): CHF COMPARISON: 04/04/2022 FINDINGS: LINES AND TUBES: None. LUNGS AND PLEURA: The lungs are mildly hypoinflated accentuating pulmonary markings.The central vessels are slightly prominent but well-defined. Previously seen edema and effusions have resolved. No pneumothorax. HEART, MEDIASTINUM AND BRYCE: Mild cardiomegaly, cardiothoracic ratio 16/30, present previously. Normal upper mediastinal and hilar contour. BONES AND SOFT TISSUES: No acute abnormality. IMPRESSION: Mild cardiomegaly without edema. Hypoinflation accentuates pulmonary markings, which may account for slight central vascular prominence, although minimal vascular congestion is also possible. WSN: [id number] Ordering Physician: Tonia Khan Dictated By: Wei Montano MD Dictated Date/Time: 04/27/22 7:49 am Reviewed By: Wei Montano MD Signed By: Wei Montano MD Signed Date/Time: 04/27/22 7:49 am Transcribed By: TY Transcribed Date/Time: 04/27/22 7:45 am * Exam Date Time Procedure Performing Provider Status 04/26/22 10:03 PM Foot Min 3 Views Right Megan Nava sa Arnoldmichelle; Auth (Verified) Notes: (Foot Min 3 Views Right) Reason For Exam: with Pain;Trauma RESULT: Foot Min 3 Views Right Foot Min 3 Views Right, 3 views REASON: Trauma; with Pain; Clinical Question(s): Fracture; Hx of Present Illness: R foot wound; COMPARISON: Multiple priors, most recent 04/10/2022. FINDINGS: Status post amputation of the first proximal phalanx. No erosive changes or periosteal reaction. Severe peripheral vascular calcifications. Normal soft tissues. IMPRESSION: Unchanged appearance status post amputation of the first proximal phalanx. No radiographic evidenceof osteomyelitis. I have personally reviewed the images and I agree with this report. WSN: [id number] Ordering Physician: Adrián Goetz Dictated By: Sukumar Temple DO Dictated Date/Time: 04/26/22 10:17 p Reviewed By: Champ Duggan MD Signed By: Champ Dgugan MD Signed Date/Time: 04/26/22 10:22 pm Transcribed By: TY Transcribed Date/Time: 04/26/22 10:13 pm Vital Signs Most recent to oldest [Reference Range]: 1 2 3 Height 169 cm (04/27/22 6:44 AM) 169 cm (04/27/22 4:09 AM) 169 cm (04/26/22 9:09 PM) Weight 100 kg (04/27/22 6:44 AM) 100 kg (04/27/22 4:09 AM) 100 kg (04/26/22 9:09 PM) Oxygen Saturation [94-100 %] 99 % (04/27/22 10:36 AM) 98 % (04/27/22 7:30 AM) 99 % (04/27/22 6:44 AM) Pulse Rate [55-90 bpm] 82 bpm (04/27/22 10:36 AM) 82 bpm (04/27/22 7:30 AM) 74 bpm (04/27/22 6:44 AM) Body Mass Index [18.5-24.99] 35.01 *>HHI* (04/27/22 6:44 AM) 35.01 *>HHI* (04/27/22 4:09 AM) 35.01 *>HHI* (04/26/22 8:45 PM) Blood Pressure [90-138/55-84 mm Hg] 149/75mm Hg *H* (04/27/22 10:36 AM) 177/87mm Hg *H* (04/27/22 7:30 AM) 170/80mm Hg *H* (04/27/22 6:44 AM) Respiratory Rate [16-30 br/min] 16 br/min (04/27/22 10:36 AM) 16 br/min (04/27/22 7:31 AM) 16 br/min (04/27/22 7:30 AM) Temperature [96.8-100.4 DegF] 97.9 DegF (04/27/22 7:30 AM) 98.7 DegF (04/27/22 6:44 AM) 97.7 DegF (04/27/22 4:09 AM) Mode of Delivery (Oxygen) Room air (04/27/22 10:36 AM) Room air (04/27/22 7:30 AM) Room air (04/27/22 6:44 AM) Blood pressure sites Arm, left (04/27/22 10:36 AM) Arm, left (04/27/22 7:30 AM) Arm, left (04/27/22 6:44 AM) Temperature Route Oral (04/27/22 7:30 AM) Oral (04/27/22 6:44 AM) Oral (04/27/22 4:09 AM) Weight Obtained Via Patient/family state d (04/26/22 8:45 PM) Social History Social History Type Response Smoking Status Never (less than 100 in lifetime) entered on: 09/03/19 Sex 1per pt
--- OUTSIDE RECORDS SUMMARY | 2023-02-20 15:16 | XMS_ITS | Continuity of Care Document ---
Author Name Unknown Organization [facility] Address [address] [place] [address]- Care Team Providers Care Family Preservation Officer Name Role Phone Sangeetha MOSHER, Marcia Koroma Primary Care Physician [phone] Encounter [facility] Date(s): 03/15/21 - 05/07/21 [facility] [address], [place] [address] Attending Physician: Arlette Galloway NP Admitting Physician: [...] Note: VIS GIVEN-DATED 05/30/11 2Result Comment: LOT [id number] EXP 04 MAY 2010 3Admin Note: VIS given Medications albuterol 90 mcg/inh inhalation powder 2 puffs, Inhalation, Every 6 hours, PRN as needed, # 1 each, 11 Refills, Maintenance, 12/08/20 11:02:00 EST, Powder, [facility] #[id number], 2 puffs Inhalation Every 6 hours,PRN:as needed, [...] 07/30/20 18:34:00 EDT, Route to Pharmacy Electronically, [facility] #[id number], 170, cm, 05/20/20 14:48:00 EDT, Height, 100.5, kg, 05/30/19 9:39:00 EDT, Dry... Start Date: 07/30/20 Stop Date: 07/25/21 Status: Ordered aspirin 81 mg oral delayed release tablet 81 mg, 1, tablet, By Mouth, Daily, # 30 tablet, Refills 11, Tot. Refills 11, Maintenance, 05/20/20 14:45:00 EDT, Route to Pharmacy Electronically, [facility] #[id number], 170, cm, 05/20/20 14:08:00 EDT, Height, 100.5, kg, 05/30/19 9:39:00 EDT, . Start Date: 05/20/20 Status: Ordered atorvastatin 10 mg oral tablet 1 tablet = 10 mg, By Mouth, Daily, # 90 tablet, 1 Refills, Maintenance, 05/05/21 10:09:00 EDT, [facility] #[id number], 170, cm, 12/21/20 9:18:00 EST, Height, 100.5, [...] tablet, 0 Refills, Maintenance, 03/28/21 10:39:00 EDT, [id number], 170, cm, 12/21/20 9:18:00 EST, Height, 100.5, kg, 05/30/19 9:39:00 EDT, Dry Weight Start Date: 03/28/21 Status: Ordered Lantus Solostar Pen 100 units/mL subcutaneous solution See Instructions, Inject 40 units under the skin twice daily., # 24 mL, 3 Refills, Maintenance, 01/29/21 9:00:00 EDT, [id number], 170, cm, 12/21/20 9:18:00 EST, Height, 100.5, kg, 05/30/19 9:39:00 EDT, Dry Weight Start Date: 01/29/21 Status: Ordered lisinopril 40 mg oral tablet 1 tablet = 40 mg, By Mouth, Daily, # 90 tablet, 4 Refills, Maintenance, 02/03/20 12:39:00 EDT, Tablet, [id number], 170, cm, 12/16/19 10:11:00 EST, Height, 100.5, kg, 05/30/19 9:39:00EDT, Dry Weight Start Date: 02/03/20 Stop Date: 04/28/21 Status: Ordered Melatonin 5 mg oral tablet 0 Refills, Maintenance, 01/29/19 10:09:09 EDT Start Date: 01/29/19 Status: Ordered NovoLOG FlexPen 100 units/mL injectable solution See Instructions, INJECT 20 UNITS SUBCUTANEOULSY THREE TIMES DAILY BEFORE MEALS., # 48 mL, 0 Refills, 03/30/21 11:25:00 EDT, [facility] #[id number], 170, cm, 12/21/20 9:18:00 EST, Height, 100.5,kg, 05/30/19 9:39:00 EDT, Dry Weight Start Date: 03/30/21 Status: Ordered OXcarbazepine 300 mg oral tablet TK 1 T PO BID Start Date: 01/29/19 Status: Ordered PARoxetine 40 mg oral tablet TK 1 T PO HS Start Date: 01/29/19 Status: Ordered Pen [place], 31 G x 5 mm BD Ultra Fine III See Instructions, # 150 each, Refills 11, Tot. Refills 11, Maintenance, use to inject insulin up tofive times daily dx e11.9, 10/21/20 15:55:00 EST, Supply, 170, cm, 05/20/20 14:48:00 EDT, Height, 100.5, kg, 05/30/19 9:39:00 EDT, Dry Weight Start Date: 10/21/20 Status: Ordered Pen Highmore, 31 G x 5 mm BD Ultra [...] 5 Refills, Maintenance, 02/01/21 14:49:00 EDT, Solution, [facility] #[id number], to replace 0.75 mg dose, 170, cm, [...] Microalbuminuria(Confirmed) Active Morbid obesity(Confirmed) Active BHN/CCA/AUDRA-Mignon Peters [phone]/Health longterm active care coordination(Confirmed) Active Peripheral vascular disease(Confirmed) Active Umbilical hernia(Confirmed) Active 1per 2016 and 2018 [facility] notes Social History Social History Type Response Smoking Status Never (less than 100 in lifetime) entered on: 09/03/19 Sex Female 1per pt
--- OUTSIDE RECORDS SUMMARY | 2023-02-20 15:16 | XMS_ITS | Continuity of Care Document ---
Author Name Unknown Organization [facility] Address [address] [place] [address]- Care Team Providers Care Electric Lift Truck Driver Name Role Phone Josef MOSHER, Mamie Patterson Primary Care Physician [place] [facility] [place]09[place]22 [facility] [address] [place], [place] [address] Allergies, Adverse Reactions, Alerts Substance Reaction Severity Status ibuprofen ABD PAIN Active morphine Vomiting and itchy Active traMADol Itchy, Hives Active Immunizations Given and Recorded Vaccine Date Status Refusal Reason SARS-CoV-2 mRNA (elchhel-wnbt-mogyg) vax 02/22/22 Recorded SARS-CoV-2 (COVID-19) mRNA BNT-162b2 [...] Note: VIS GIVEN-DATED 05/30/11 2Result Comment: LOT [id number] EXP 04 MAY 2010 3Admin Note: VIS [...] 03/10/22 9:04:00 EDT, Route to Pharmacy Electronically, [facility] #[id number], Partial fill upon patient request if the prescription is for a schedule II opi... Start Date: 03/10/22 Status: Ordered atorvastatin 10 mg oral tablet 1 tablet, By Mouth, Daily, # 90 tablet, 1 Refills, Maintenance, 12/13/21 19:21:00 EST, [facility] #[id number], 170, cm, 07/28/21 10:50:00 EDT, Height Start Date: 12/13/21 Status: Ordered Augmentin 875 mg-125 mg oral tablet 1 tablet, By Mouth, 2 times a day, # 11 tablet, 0 Refills, Acute 04/11/22 22:00:00 EDT, 04/06/22 14:52:00 EDT, [facility], Partial fill upon patient request if the prescription is for aschedule II opioid drug., 170.18, cm, 04/06/22 12:4... Start Date: 04/06/22 Stop Date: 04/11/22 Status: Ordered Blood Pressure Monitor See Instructions, # 1 each, Maintenance, DX HTN, ICD E11.9, 01/11/22 9:28:00 EST, Supply Start Date: 01/11/22 Status: Ordered Colace sodium 100 mg oral capsule 100 mg, 1, capsule, By Mouth, 2 times a day, PRN, # 60 capsule, Refills 0, Tot. Refills 0, Maintenance, for constipation, 03/16/22 14:30:00 EDT, [facility] Partial fill upon patient request if [...] 04/06/22 14:48:00 EDT, Route to Pharmacy Electronically, [facility], Partial fill upon patient request if the prescription is for a schedule II opioi... Start Date: 04/06/22 Status: Ordered insulin aspart 100 units/mL subcutaneous solution = 20 units, Subcutaneous Injection, 3 times a day before meals, # 10 mL, 11 Refills, Maintenance, 03/10/22 9:06:00 EDT, Solution, [facility] #[id number], Partial fill upon patient request if theprescription [...] tablet, 11 Refills, Maintenance, 03/09/22 14:23:00 EDT, [facility], resent - not recvd, 169, cm, 03/09/22 13:46:00 EDT, Height, 104.9, kg, 03/04/22 2:58:00 EDT, Dry Weight Start Date: 03/09/22 Status: Ordered Lantus 100 u/ml subcutaneous solution = 30 units, Subcutaneous Injection, 2 times a day, # 10 mL, 5 Refills, Maintenance, 03/10/22 9:05:00 EDT, [facility], [id number], Partial fill upon patient request if the prescription is for a schedule II opioid drug., 169, cm, 03/09/22... Start Date: 03/10/22 Status: Ordered metoprolol 25 mg oral tablet 25 mg, 1, tablet, By Mouth, 2 times a day, # 60 tablet, Refills 0, Tot. Refills 0, Maintenance, 04/06/22 14:48:00 EDT, Route to Pharmacy Electronically, [facility], Partial fill upon patient request if the prescription is for a schedule... Start Date: 04/06/22 Status: Ordered Offloading boot Offloading boot, See [...] 04/06/22 14:47:00 EDT, Route to Pharmacy Electronically, [facility], Partial fill upon patient request [...] 0 Refills, Maintenance, 03/09/22 14:21:00 EDT, Gel, [facility] Partial fill upon patient request if the p... Start Date: 03/09/22 Status: Ordered traZODone 300 mg oral tablet 1 tablet = 300 mg, By Mouth, Daily at bedtime Start Date: 03/03/22 Status: Ordered Trulicity Pen 3 mg/0.5 mL subcutaneous solution See Instructions, ADMINISTER 0.5 ML UNDER THE SKIN EVERY WEEK. ROTATE INJECTION SITES, # 2 mL, 11 Refills, 03/09/22 14:22:00 EDT, [facility] 169, cm, 03/09/22 13:46:00 EDT, Height, 104.9, kg, 03/04/22 2:58:00 EDT, Dry Weight Start Date: 03/09/22 Status: Ordered Tylenol Extra Strength 500 mg oral tablet 2 tablet = 1,000 mg, By Mouth, Every 6 hours, prn pain, # 100 tablet, 0 Refills, Maintenance, 03/16/22 14:30:00 EDT, [facility], Partial fill upon patient request if the prescription is for a schedule II opioid drug., 169, cm, 03/16/22... Start Date: 03/16/22 Status: Ordered Ventolin HFA 108 mcg/inh inhalation aerosol with adapter 1 puffs, Inhalation, 4 times a day, PRN NEEDED FOR WHEEZING, # 18 Gm, 0 Refills, [facility] #[id number], 170, cm, 01/11/22 9:39:00 EST, Height Start [...] Active Obese class II(Confirmed) Active BHN/CCA/AUDRA-Mignon Peters [phone]/Health alf active care coordination(Confirmed) Active Peripheral vascular disease(Confirmed) Active Uncontrolled type 1 diabetes mellitus with hyperglycemia, with long-term current use of insulin(Confirmed) Active Umbilical hernia(Confirmed) Active 1per 2017 and 2019 [facility] notes Social History Social History Type Response Smoking Status Never (less than 100 in lifetime) entered on: 09/03/19 Sex 1per pt
--- OUTSIDE RECORDS SUMMARY | 2023-02-20 15:16 | XMS_ITS | Continuity of Care Document ---
Author Name Unknown Organization [facility] Address [address] [place] [address]- Care Team Providers Care Wildlife Ecology Professor Name Role Phone Olivier MOSHER, Allegra Primary Care Physician Encounter [facility] [place] Date(s): 08/02/22 - 09/01/22 [facility] [address] [place], [place] [address] Allergies, Adverse Reactions, Alerts Substance Reaction Severity Status ibuprofen ABD PAIN Active morphine Vomiting and itchy Active traMADol Itchy, Hives Active Immunizations Given and Recorded Vaccine Date Status Refusal Reason SARS-CoV-2 mRNA (jhobecq-eiwe-xwuul) vax 02/22/22 Recorded SARS-CoV-2 (COVID-19) mRNA BNT-162b2 [...] Note: VIS GIVEN-DATED 05/30/11 2Result Comment: LOT [id number] EXP 04 MAY 2010 3Admin Note: VIS [...] 9:05:00 EDT, Route to Pharmacy Electronically, [facility], Partial fill upon patient request if the prescription is for a schedule II opio... Start Date: 04/24/22 Status: Ordered ammonium lactate 5% topical lotion 1 application, Topically, 2 times a day, # 240 Gm, 0 Refills, Maintenance, 05/01/22 12:34:00 EDT, Lotion, [facility]acy #[id number], Partial fill upon patient [...] to Pharmacy Electronically, [facility], Partial fill upon patient request if the prescription is for a schedule II opioid drug.,... Start Date: 05/13/22 Stop Date: 11/09/22 Status: Ordered atorvastatin 40 mg oral tablet 1 tablet = 40 mg, By Mouth, Daily, # 90 tablet, 2 Refills, Maintenance, 04/24/22 9:41:00 EDT, Tablet, [facility] Partial fill upon patient request if [...] 16:13:00 EDT, [id number] Partial fill upon patient request if the prescription is for a schedule II opi... Start Date: 07/26/22 Stop Date: 01/22/23 Status: Ordered Colace sodium 100 mg oral capsule 100 mg, 1, capsule, By Mouth, 2 times a day, PRN, # 60 capsule, Refills 0, Tot. Refills 0, Maintenance, for constipation, 03/16/22 14:30:00 EDT, Route to Pharmacy Electronically, [facility], Partial fill upon patient request if [...] 15:52:00 EDT, Route to Pharmacy Electronically, [facility], Partial fill upon patient request if [...] 6 Refills, Soft Stop, 08/01/22 16:09:00EDT, Solution, [facility], Partial fill upon patient request if the prescription isfor a schedule II opioid drug., 169, cm, 08/01/22 1... Start Date: 08/01/22 Stop Date: 04/22/24 Status: Ordered lisinopril 10 mg oral tablet 10 mg, 1, tablet, By Mouth, Daily, # 90 tablet, Refills 4, Tot. Refills 4, Maintenance, 07/12/22 10:12:00 EDT, Route to Pharmacy Electronically, [facility] #[id number], Partial fill upon patientrequest if the prescription is for a schedule II op... Start Date: 07/12/22 Stop Date: 10/05/23 Status: Ordered NovoLOG FlexPen 100 units/mL injectable solution = 20 units, Subcutaneous Injection, 3 times a day before meals, INJECT 20 UNITS INTO SKIN THREE TIMES DAILY BEFORE A MEAL, # 15 mL, 10 Refills, Maintenance, 08/01/22 16:09:00 EDT, [facility] 169, cm, 08/01/22 14:14:00 EDT, Height, 104... [...] Acute 09/11/22 16:30:00 EST, 08/28/22 16:30:00 EDT, [facility]/pharmacy #[id number], Partial fill upon patient [...] 9:03:00 EDT, Route to Pharmacy Electronically, [facility], Partial fill upon patient request if the prescription is for a schedule II opio... Start Date: 04/24/22 Status: Ordered ProAir HFA 90 mcg/inh inhalation aerosol 1 puffs, Inhalation, Every 4 hours, PRN as needed for wheezing, # 18 Gm, 0 Refills, Maintenance, 04/18/22 9:51:00 EDT, Aerosol, [facility], Partial fill upon patient request if [...] Refills, Maintenance, 03/09/22 14:21:00 EDT, Gel, [facility], Partial fill upon patient request if the p... Start Date: 03/09/22 Status: Ordered traZODone 300 mg oral tablet 1 tablet = 300 mg, By Mouth, Daily at bedtime Start Date: 03/03/22 Status: Ordered Trulicity Pen 4.5 mg/0.5 mL subcutaneous solution = 0.5 mL, Subcutaneous Injection, Every week, rotate injection sites, # 6 mL, 4 Refills, Maintenance, 07/19/22 10:42:00 EDT, Solution, [facility] #[id number], Partial fill upon patient request if the prescription is for a schedule II opioid drug.... Start Date: 07/19/22 Status: Ordered Tylenol 8 Hour 650 mg oral tablet, extended release 2 tablet = 1,300 mg, By Mouth, Every 8 hours, PRN as needed for pain, # 24 tablet, 0 Refills, Maintenance, 04/24/22 9:43:00 EDT, ER Tablet, [facility], Partial fill upon patient request if the prescription is for a schedule II opioid d... Start Date: 04/24/22 Status: Ordered Ventolin HFA 108 mcg/inh inhalation aerosol with adapter 2 puffs, Inhalation, Every 6 hours, PRN Wheezing/Shortness of Breath, # 8 Gm, 1 Refills, Maintenance, 05/30/22 10:56:00 EDT, [facility]., Partial fill upon patient request if [...] Obese class II Confirmed Active BHN/CCA/CP- [place]le [phone] mcc active care coordination Confirmed Active Peripheral vascular disease Confirmed Active Umbilical hernia Confirmed Active 1per 2016 and 2018 [facility] notes Social History Social History Type Response Smoking Status Never (less than 100 in lifetime) entered on: 09/03/19 Sex 1per pt Patient Care team information Personnel Name: Olivier MOSHER, Allegra Address: Address: [address] [place] [address]
--- OUTSIDE RECORDS SUMMARY | 2023-02-20 15:16 | XMS_ITS | Continuity of Care Document ---
Author Name Unknown Organization [facility] Address [address] [place] [address]- Care Team Providers Care Specialist Managers Name Role Phone Sangeetha MOSHER, Marcia Koroma Primary Care Physician En[place] [facility] [place](s): 06/16/20 - 07/18/[address] [address]- [facility] Attending Physician: Esmer Najera OD, I Admitting Physician: Esmer Najera OD, I Allergies, Adverse Reactions, Alerts Substance Reaction Severity [...] Note: VIS GIVEN-DATED 05/30/11 2Result Comment: LOT [id number] EXP 04 MAY 2010 3Admin Note: VIS [...] 02/03/20 12:39:00 EDT, Route to Pharmacy Electronically, [facility] #[id number], 170, cm, 12/16/19 10:11:00 EST, Height, 100.5, kg, 05/30/19 9:39:00 EDT, Dry... Start Date: 02/03/20 Stop Date: 01/28/21 Status: Ordered aspirin 81 mg oral delayed release tablet 81 mg, 1, tablet, By Mouth, Daily, # 30 tablet, Refills 11, Tot. Refills 11, Maintenance, 05/20/20 14:45:00 EDT, Route to Pharmacy Electronically, [facility] #[id number], 170, cm, 05/20/20 14:08:00 EDT, Height, 100.5, kg, 05/30/19 9:39:00 EDT, Start Date: 05/20/20 Status: Ordered atorvastatin 10 mg oral tablet 1 tablet = 10 mg, By Mouth, Daily, # 30 tablet, 11 Refills, Maintenance, 05/20/20 14:46:00 EDT, [facility] #[id number], 170, cm, 05/20/20 14:08:00 EDT, Height, 100.5, [...] 03/06/19 17:12:53 EDT, Route to Pharmacy Electronically, [id number], [facility] [id number] Start Date: 03/06/19 Status: Ordered Insulin Syringe, BD Ultra-Fine 0.5 cc 31 G x 8 mm (03/20in) See Instructions, # 150 each, Refills 11, Tot. Refills 11, Maintenance, use as directed for Type 2 Diabetes Mellitus to admisiter insulin four times a day. Dx; E11.9, 05/20/20 15:10:00 EDT, pt was transferred to [facility], all meds left beh... Start Date: 05/20/20 Stop Date: 05/15/21 Status: Ordered Lantus 100 u/ml subcutaneous solution = 40 units, Subcutaneous Infusion, 2 times a day, # 15 mL, 11 Refills, Maintenance, 04/28/20 11:50:00 EDT, [facility] #[id number], 170, cm, 04/02/20 13:31:00 EDT, Height, 100.5, kg, 05/30/19 9:39:00 EDT, Dry Weight Start Date: 04/28/20 Stop Date: 04/23/21 Status: Ordered lisinopril 40 mg oral tablet 1 tablet = 40 mg, By Mouth, Daily, # 90 tablet, 4 Refills, Maintenance, 02/03/20 12:39:00 EDT, Tablet, [facility] #[id number], 170, cm, 12/16/19 10:11:00 EST, Height, 100.5, kg, 05/30/19 9:39:00EDT, Dry Weight Start Date: 02/03/20 Stop Date: 04/28/21 Status: Ordered Melatonin 5 mg oral tablet 0 Refills, Maintenance, 01/29/19 10:09:09 EDT Start Date: 01/29/19 Status: Ordered NovoLOG 100 units/mL injectable solution = 20 units, Subcutaneous Infusion, 3 times a day before meals, replaces humalog, # 50 mL, 1 Refills, Maintenance, 02/09/20 16:58:00 EDT, [facility] #[id number], 170, cm, 12/16/19 10:11:00 EST, Height, 100.5, [...] 0 Refills, Maintenance, 05/20/20 15:09:00 EDT, Ointment, [facility] #[id number], 1 application Topically 2 times a day,x14 days,Instr:apply a thin film; to aff... Start Date: 05/20/20 Stop Date: 06/03/20 Status: Ordered Trulicity Pen 1.5 mg/0.5 mL subcutaneous solution 0.5 mL = 1.5 mg, Subcutaneous Injection, Every week, # 2.5 mL, 5 Refills, Maintenance, 02/03/20 10:19:00 EDT, Solution, [facility] #[id number], 170, cm, 12/16/19 10:11:00 EST, Height, 100.5, [...] Umbilical hernia(Confirmed) Active 1per 2017 and 2019 [facility] notes Social History Social History Type Response Smoking Status Never (less than 100 in lifetime) entered on: 09/03/19 Sex Female 1per pt
--- OUTSIDE RECORDS SUMMARY | 2023-02-20 15:16 | XMS_ITS | Continuity of Care Document ---
Author Name Unknown Organization [facility] Address [address] [place] [address]- Care Team Providers Care Power Plant Operations Manager Name Role Phone Josef MOSHER, Mamie Patterson Primary Care Physician En[place] [facility] [place] Date(s): 03/01/22 - 03/31/[address] [address] Attending Physician: Not on Staff, Attending MD Admitting Physician: Not on Staff, Admitting MD Referring Physician: Not on Staff, Referring MD Allergies, Adverse Reactions, Alerts Substance Reaction Severity Status ibuprofen ABD PAIN Active morphine Vomiting and itchy Active traMADol Itchy, Hives Active Immunizations Given and Recorded Vaccine Date Status Refusal Reason SARS-CoV-2 mRNA (xlfkulh-auld-gejbl) vax 02/22/22 Recorded SARS-CoV-2 (COVID-19) mRNA BNT-162b2 [...] Note: VIS GIVEN-DATED 05/30/11 2Result Comment: LOT [id number] EXP 04 MAY 2010 3Admin Note: VIS [...] 03/10/22 9:04:00 EDT, Route to Pharmacy Electronically, [facility] #[id number], Partial fill upon patient request if the prescription is for a schedule II opi... Start Date: 03/10/22 Status: Ordered atorvastatin 10 mg oral tablet 1 tablet, By Mouth, Daily, # 90 tablet, 1 Refills, Maintenance, 12/13/21 19:21:00 EST, [facility] #[id number], 170, cm, 07/28/21 10:50:00 EDT, Height Start [...] 03/16/22 14:30:00 EDT, Route to Pharmacy Electronically, [facility], Partial fill upon patient request if [...] 0 Refills, Maintenance, 03/16/22 14:35:00 EDT, Capsule, [facility], Partial fill upon patient request if the prescription is for a schedule II opioid drug., 169, cm, 03/16/22 14:07:00... Start Date: 03/16/22 Status: Ordered insulin aspart 100 units/mL subcutaneous solution = 20 units, Subcutaneous Injection, 3 times a day before meals, # 10 mL, 11 Refills, Maintenance, 03/10/22 9:06:00 EDT, Solution, [facility] #[id number], Partial fill upon patient request if theprescription [...] tablet, 11 Refills, Maintenance, 03/09/22 14:23:00 EDT, [facility], resent - not recvd, 169, cm, 03/09/22 13:46:00 EDT, Height, 104.9, kg, 03/04/22 2:58:00 EDT, Dry Weight Start Date: 03/09/22 Status: Ordered Lantus 100 u/ml subcutaneous solution = 30 units, Subcutaneous Injection, 2 times a day, # 10 mL, 5 Refills, Maintenance, 03/10/22 9:05:00 EDT, Solution, [facility] #[id number], Partial fill upon patient request if the prescription is for a schedule II opioid drug., 169, cm, 03/09/22... Start Date: 03/10/22 Status: Ordered lisinopril 40 mg oral tablet 1 tablet = 40 mg, By Mouth, Daily, # 30 tablet, 5 Refills, Maintenance, 03/10/22 9:03:00 EDT, Tablet, [facility] #[id number], Partial fill upon patient request if the [...] 03/06/22 Status: Ordered oxyCODONE 5 mg oral capsule 1 capsule = 5 mg, By Mouth, Every 6 hours, PRN as needed for pain, 0 Refills, Maintenance, 03/28/2215:18:00 EDT, C[facility], Partial fill upon patient request if the prescription is for a schedule II opioid drug. Start Date: 03/28/22 Status: Ordered PARoxetine 40 mg oral tablet [...] Refills, Maintenance, 03/09/22 14:21:00 EDT, Gel, [facility] Partial fill upon patient request if the p... Start Date: 03/09/22 Status: Ordered traZODone 300 mg oral tablet 1 tablet = 300 mg, By Mouth, Daily at bedtime Start Date: 03/03/22 Status: Ordered Trulicity Pen 3 mg/0.5 mL subcutaneous solution See Instructions, ADMINISTER 0.5 ML UNDER THE SKIN EVERY WEEK. ROTATE INJECTION SITES, # 2 mL, 11 Refills, 03/09/22 14:22:00 EDT, [facility] 169, cm, 03/09/22 13:46:00 EDT, Height, 104.9, kg, 03/04/22 2:58:00 EDT, Dry Weight Start Date: 03/09/22 Status: Ordered Tylenol Extra Strength 500 mg oral tablet 2 tablet = 1,000 mg, By Mouth, Every 6 hours, prn pain, # 100 tablet, 0 Refills, Maintenance, 03/16/22 14:30:00 EDT, [facility] fill upon patient request if the prescription is for a schedule II opioid drug., 169, cm, 03/16/22... Start Date: 03/16/22 Status: Ordered Ventolin HFA 108 mcg/inh inhalation aerosol with adapter 1 puffs, Inhalation, 4 times a day, PRN NEEDED FOR WHEEZING, # 18 Gm, 0 Refills, [facility][id number], 170, cm, 01/11/22 9:39:00 EST, Height Start [...] Obese class II(Confirmed) Active BHN/CCA/Luis Felipe Peters [phone]/Health custodial active care coordination(Confirmed) Active Peripheral vascular disease(Confirmed) Active Uncontrolled type 1 diabetes mellitus with hyperglycemia, with long-term current use of insulin(Confirmed) Active Umbilical hernia(Confirmed) Active 1per 2016 and 2018 [facility] notes Social History Social History Type Response Smoking Status Never (less than 100 in lifetime) entered on: 09/03/19 Sex 1per pt
--- OUTSIDE RECORDS SUMMARY | 2023-02-20 15:16 | XMS_ITS | Continuity of Care Document ---
Author Name Unknown Organization [facility] Address [address] [place] [address]- Care Team Providers Care Pilates Coordinator Name Role Phone Allegra Aguayo MD Primary Care Physician Encounter [facility] Date(s): 10/16/22 - 11/15/[address] [address]- Allergies, Adverse Reactions, Alerts Substance Reaction Severity Status ibuprofen ABD PAIN Active morphine Vomiting and itchy Active traMADol Itchy, Hives Active Immunizations Given and Recorded Vaccine Date Status Refusal Reason SARS-CoV-2 mRNA ([id number]) vax 02/22/22 Recorded SARS-CoV-2 (COVID-19) mRNA BNT-162b2 [...] Note: VIS GIVEN-DATED 05/30/11 2Result Comment: LOT [id number] EXP 04 MAY 2010 3Admin Note: VIS [...] 04/24/22 9:05:00 EDT, Route to Pharmacy Electronically, [facility], Partial fill upon patient request if the prescription is for a schedule II opio... Start Date: 04/24/22 Status: Ordered ammonium lactate 5% topical lotion 1 application, Topically, 2 times a day, # 240 Gm, 0 Refills, Maintenance, 05/01/22 12:34:00 EDT, Lotion, [facility]/pharmacy #[id number], Partial fill upon patient request if the prescription is for a schedule II opioid drug., 1 application Topically 2 times a da... Start Date: 05/01/22 Stop Date: 05/31/22 Status: Ordered aspirin 81 mg oral delayed release tablet 81 mg, By Mouth, Daily, # 30 tablet, Refills 0, Tot. Refills 0, Maintenance, 11/09/22 16:40:00 EST,Route to Pharmacy Electronically, [facility]/pharmacy #[id number], Partial fill upon patient request if the prescription is for a schedule II opioid drug., 169, cm,... Start Date: 11/09/22 Stop Date: 12/09/22 Status: Ordered atorvastatin 40 mg oral tablet 1 tablet = 40 mg, By Mouth, Daily, # 90 tablet, 2 Refills, Maintenance, 04/24/22 9:41:00 EDT, Tablet, [facility], Partial fill upon patient request if [...] 07/26/22 16:13:00 EDT, Route to Pharmacy Electronically, [facility]/pharmacy #[id number], Partial fill upon patient request [...] 03/16/22 14:30:00 EDT, Route to Pharmacy Electronically, [facility], Partial fill upon patient request if [...] 0 Refills, Maintenance, 09/21/22 11:57:00 EST, Tablet, [facility]/pharmacy #[id number], Partial fill upon patient request [...] 10/16/22 10:25:00 EST, Route to Pharmacy Electronically, [facility] #[id number], Partial fill upon patientrequest if the prescription [...] Refills, Soft Stop, 10/16/22 8:19:00 EST, Solution, [facility]/pharmacy #[id number], Partial fill upon patient request [...] 09/20/22 11:19:00 EST, Route to Pharmacy Electronically, [facility]/pharmacy #[id number], Partial fillupon patient request if the prescription is for a s... Start Date: 09/20/22 Status: Ordered levoFLOXacin 250 mg oral tablet 1 tablet = 250 mg, By Mouth, Every 24 hours, # 14 tablet, 0 Refills, Maintenance, 09/20/22 11:28:00EST, Tablet, [facility]/pharmacy #[id number], Partial fill upon patient request if the prescription is for a schedule II opioid drug., 169, cm, 09/20/22 9:22:00 EST... Start Date: 09/20/22 Stop Date: 10/04/22 Status: Ordered lisinopril 10 mg oral tablet 10 mg, 1, tablet, By Mouth, Daily, # 90 tablet, Refills 1, Tot. Refills 1, Maintenance, 10/16/22 10:24:00 EST, Route to Pharmacy Electronically, [facility] #[id number], Partial fill upon patientrequest if the prescription is for a schedule II op... Start Date: 10/16/22 Stop Date: 04/14/23 Status: Ordered NovoLOG FlexPen 100 units/mL injectable solution = 20 units, Subcutaneous Injection, 3 times a day before meals, INJECT 20 UNITS INTO SKIN THREE TIMES DAILY BEFORE A MEAL, # 15 mL, 10 Refills, Maintenance, 08/01/22 16:09:00 EDT, [facility], 169, cm, 08/01/22 14:14:00 EDT, Height, [...] 04/24/22 9:03:00 EDT, Route to Pharmacy Electronically, [facility], Partial fill upon patient request if [...] 2 Refills, Maintenance, 10/16/22 13:14:00 EST, Solution, [facility]/pharmacy #[id number], Partial fill upon patient request if the prescription is for a schedule II opioid drug., 169, cm, 10/09/22 8:39... Start Date: 10/16/22 Status: Ordered Ventolin HFA 108 mcg/inh inhalation aerosol with adapter 1 puffs, Inhalation, Every 4 hours, PRN NEEDED FOR WHEEZING, # 18 Gm, 0 Refills, Maintenance, 11/02/22 8:15:00 EST, [facility] #[id number], 169, cm, 11/01/22 11:21:00 EST, Height, 103.42, [...] Active Morbid obesity Confirmed Active BHN/CCA/CP- [facility] [phone] senior care active care coordination Confirmed Active [...] Team Personnel Name: Allegra Aguayo MD Position: [facility] Resident Member Role: PCP Address: Address: [address] [place] [id number] Name: Vera Locke RN [...] Care Nurse Name: Angie Lopez RN Position: [facility] RN Member Role: Primary Care Nurse Name: Lizzie Estrada RN Position: S RN Member Role: Primary Care Nurse Care Team Related Persons Name: MIKEY SEAY Address: home [address] [address] Name: MIKEY AYALA Address: home [address] [place] [address] Name: TANIA COPPOLA Address: home [address] [place] [address] Name: TANIA MUÑIZ Address: home [address] [place] [address]
--- OUTSIDE RECORDS SUMMARY | 2023-02-20 15:16 | XMS_ITS | Continuity of Care Document ---
Author Name Unknown Organization [facility] Address [address] [place] [address]- Care Team Providers Care Investigative Agent Name Role Phone Sangeetha MOSHER, Marcia Koroma Primary Care Physician [phone] Encounter [facility] Date(s): 02/01/21 - 03/03/21 [facility] [address] [place], [place] [address] Allergies, Adverse Reactions, Alerts [...] Note: VIS GIVEN-DATED 05/30/11 2Result Comment: LOT [id number] EXP 04 MAY 2010 3Admin Note: VIS given Medications albuterol 90 mcg/inh inhalation powder 2 puffs, Inhalation, Every 6 hours, PRN as needed, # 1 each, 11 Refills, Maintenance, 12/08/20 11:02:00 EST, Powder, [facility] #[id number], 2 puffs Inhalation Every 6 hours,PRN:as needed, [...] 07/30/20 18:34:00 EDT, Route to Pharmacy Electronically, [facility] #[id number], 170, cm, 05/20/20 14:48:00 EDT, Height, 100.5, kg, 05/30/19 9:39:00 EDT, Dry... Start Date: 07/30/20 Stop Date: 07/25/21 Status: Ordered aspirin 81 mg oral delayed release tablet 81 mg, 1, tablet, By Mouth, Daily, # 30 tablet, Refills 11, Tot. Refills 11, Maintenance, 05/20/20 14:45:00 EDT, Route to Pharmacy Electronically, [facility] #[id number], 170, cm, 05/20/20 14:08:00 EDT, Height, 100.5, kg, 05/30/19 9:39:00 EDT, Start Date: 05/20/20 Status: Ordered atorvastatin 10 mg oral tablet 1 tablet = 10 mg, By Mouth, Daily, # 30 tablet, 11 Refills, Maintenance, 05/20/20 14:46:00 EDT, [facility] #[id number], 170, cm, 05/20/20 14:08:00 EDT, Height, 100.5, [...] 09/10/20 18:41:00 EST, pt was transferred to [facility]... Start Date: 09/10/20 Stop Date: [...] mL, 3 Refills, Maintenance, 01/29/21 9:00:00 EDT, [facility] #[id number], 170, cm, 12/21/20 9:18:00 EST, Height, 100.5, kg, 05/30/19 9:39:00 EDT, Dry Weight Start Date: 01/29/21 Status: Ordered lisinopril 40 mg oral tablet 1 tablet = 40 mg, By Mouth, Daily, # 90 tablet, 4 Refills, Maintenance, 02/03/20 12:39:00 EDT, Tablet, [facility] #[id number], 170, cm, 12/16/19 10:11:00 EST, Height, 100.5, [...] mL, 1 Refills, Maintenance, 12/17/20 13:06:00 EST, [facility] #[id number], 170, cm, 05/20/2014:48:00 EDT, Height, 100.5, kg, 05/30/19 9:39:00 E... Start Date: 12/17/20 Status: Ordered OXcarbazepine 300 mg oral tablet TK 1 T PO BID Start Date: 01/29/19 Status: Ordered PARoxetine 40 mg oral tablet TK 1 T PO HS Start Date: 01/29/19 Status: Ordered Pen [place], 31 G x 5 mm BD Ultra Fine III See Instructions, # 150 each, Refills 11, Tot. Refills 11, Maintenance, use to inject insulin up tofive times daily dx e11.9, 10/21/20 15:55:00 EST, Supply, 170, cm, 05/20/20 14:48:00 EDT, Height, 100.5, kg, 05/30/19 9:39:00 EDT, Dry Weight Start Date: 10/21/20 Status: Ordered Pen [place], 31 G x 5 mm BD Ultra [...] 2 Refills, Maintenance, 02/11/21 11:27:00 EDT, Tablet, [facility] #[id number], pt needs labs; to replace 50 mg dose;, 170, cm, 12/21/20... Start Date: 02/11/21 Status: Ordered traZODone 300 mg oral tablet TK 1 T PO HS Start Date: 01/29/19 Status: Ordered Trulicity Pen 1.5 mg/0.5 mL subcutaneous solution 0.5 mL = 1.5 mg, Subcutaneous Injection, Every week, # 2.5 mL, 5 Refills, Maintenance, 02/01/21 14:49:00 EDT, Solution, [facility] #[id number], to replace 0.75 mg dose, 170, cm, [...] Microalbuminuria(Confirmed) Active Morbid obesity(Confirmed) Active BHN/CCA/CP-Mignon Peters [phone]/Health retirement active care coordination(Confirmed) Active Peripheral vascular disease(Confirmed) Active Umbilical hernia(Confirmed) Active 1per 2017 and 2019 [facility] notes Social History Social History Type Response Smoking Status Never (less than 100 in lifetime) entered on: 09/03/19 Sex Female 1per pt
--- OUTSIDE RECORDS SUMMARY | 2023-02-20 15:16 | XMS_ITS | Continuity of Care Document ---
Author Name Unknown Organization [facility] Address [address] [place] [address]- Care Team Providers Care Sash Repairer Name Role Phone Allegra Aguayo MD Primary Care Physician Encounter [facility] Date(s): 08/28/22 - 09/27/22 [facility] [address] [place] [address]- Allergies, Adverse Reactions, Alerts Substance Reaction Severity Status ibuprofen ABD PAIN Active morphine Vomiting and itchy Active traMADol Itchy, Hives Active Immunizations Given and Recorded Vaccine Date Status Refusal Reason SARS-CoV-2 mRNA ([id number]) vax 02/22/22 Recorded SARS-CoV-2 (COVID-19) mRNA BNT-162b2 [...] Note: VIS GIVEN-DATED 05/30/11 2Result Comment: LOT [id number] EXP 04 MAY 2010 3Admin Note: VIS [...] 09/12/22 13:18:00 EST, Route to Pharmacy Electronically, [facility]/pharmacy #[id number], Partial fill upon patient req... Start Date: [...] 04/24/22 9:05:00 EDT, Route to Pharmacy Electronically, [facility], Partial fill upon patient request if the prescription is for a schedule II opio... Start Date: 04/24/22 Status: Ordered ammonium lactate 5% topical lotion 1 application, Topically, 2 times a day, # 240 Gm, 0 Refills, Maintenance, 05/01/22 12:34:00 EDT, Lotion, [facility]/pharmacy #[id number], Partial fill upon patient request if the prescription is for a schedule II opioid drug., 1 application Topically 2 times a da... Start Date: 05/01/22 Stop Date: 05/31/22 Status: Ordered aspirin 81 mg oral delayed release tablet 81 mg, By Mouth, Daily, # 30 tablet, Refills 5, Tot. Refills 5, Maintenance, 05/13/22 16:40:00 EDT,Route to Pharmacy Electronically, [facility], Partial fill upon patient request if the prescription is for a schedule II opioid drug.,... Start Date: 05/13/22 Stop Date: 11/09/22 Status: Ordered atorvastatin 40 mg oral tablet 1 tablet = 40 mg, By Mouth, Daily, # 90 tablet, 2 Refills, Maintenance, 04/24/22 9:41:00 EDT, Tablet, [facility], Partial fill upon patient request if [...] 07/26/22 16:13:00 EDT, [id number] Partial fill upon patient request if the prescription is for a schedule II opi... Start Date: 07/26/22 Stop Date: 01/22/23 Status: Ordered Colace sodium 100 mg oral capsule 100 mg, 1, capsule, By Mouth, 2 times a day, PRN, # 60 capsule, Refills 0, Tot. Refills 0, Maintenance, for constipation, 03/16/22 14:30:00 EDT, Route to Pharmacy Electronically, [facility], Partial fill upon patient request if [...] 0 Refills, Maintenance, 09/21/22 11:57:00 EST, Tablet, [facility]/pharmacy #[id number], Partial fill upon [...] 07/07/22 15:52:00 EDT, Route to Pharmacy Electronically, [facility], Partial fill upon patient request if [...] 6 Refills, Soft Stop, 08/01/22 16:09:00EDT, Solution, [facility], Partial fill upon patient request if the prescription isfor a schedule II opioid drug., 169, cm, 08/01/22 1... Start Date: 08/01/22 Stop Date: 04/22/24 Status: Ordered Lasix 20 mg oral tablet 1, capsule, By Mouth, Once, take one pill daily for 3 days, # 3 tablet, Refills 0, Tot. Refills 0, Soft Stop, 09/20/22 11:19:00 EST, [id number] Partial fillupon patient request if the prescription is for a s... Start Date: 09/20/22 Status: Ordered levoFLOXacin 250 mg oral tablet 1 tablet = 250 mg, By Mouth, Every 24 hours, # 14 tablet, 0 Refills, Maintenance, 09/20/22 11:28:00EST, Tablet, [facility]/pharmacy #[id number], Partial fill upon patient request if the prescription is for a schedule II opioid drug., 169, cm, 09/20/22 9:22:00 EST... Start Date: 09/20/22 Stop Date: 10/04/22 Status: Ordered lisinopril 10 mg oral tablet 10 mg, 1, tablet, By Mouth, Daily, # 90 tablet, Refills 4, Tot. Refills 4, Maintenance, 07/12/22 10:12:00 EDT, Route to Pharmacy Electronically, [facility] #[id number], Partial fill upon patientrequest if the prescription is for a schedule II op... Start Date: 07/12/22 Stop Date: 10/05/23 Status: Ordered NovoLOG FlexPen 100 units/mL injectable solution = 20 units, Subcutaneous Injection, 3 times a day before meals, INJECT 20 UNITS INTO SKIN THREE TIMES DAILY BEFORE A MEAL, # 15 mL, 10 Refills, Maintenance, 08/01/22 16:09:00 EDT, [facility], 169, cm, 08/01/22 14:14:00 EDT, Height, [...] 10/04/22 15:20:00 EST, 09/27/22 15:20:00 EST, Tablet, [facility]/pharmacy #[id number], Partial fill upon [...] 04/24/22 9:03:00 EDT, Route to Pharmacy Electronically, [facility], Partial fill upon patient request if the prescription is for a schedule II opio... Start Date: 04/24/22 Status: Ordered ProAir HFA 90 mcg/inh inhalation aerosol 1 puffs, Inhalation, Every 4 hours, PRN as needed for wheezing, # 18 Gm, 0 Refills, Maintenance, 04/18/22 9:51:00 EDT, Aerosol, [facility], Partial fill upon patient request if [...] 4 Refills, Maintenance, 07/19/22 10:42:00 EDT, Solution, [facility] #[id number], Partial fill upon patient request if the prescription is for a schedule II opioid drug.... Start Date: 07/19/22 Status: Ordered Ventolin HFA 108 mcg/inh inhalation aerosol with adapter 2 puffs, Inhalation, Every 6 hours, PRN Wheezing/Shortness of Breath, # 8 Gm, 1 Refills, Maintenance, 05/30/22 10:56:00 EDT, [facility], Partial fill upon patient request if [...] Obese class II Confirmed Active BHN/CCA/CP- [facility] [phone] retirement active care coordination Confirmed Active Peripheral vascular disease - right SFA angioplasty/right great toe amputation 2021 Confirmed Active Umbilical hernia Confirmed Active 1per 2016 and 2018 [facility] notes Social History Social History Type Response Smoking Status Never (less than 100 in lifetime) entered on: 09/03/19 Sex 1per pt Patient Care team information Care Team Personnel Name: Allegra Aguayo MD Position: [facility] Resident Member Role: PCP Address: Address: [address] [place] [address] Name: Vera Locke RN Position: S RN Member Role: Primary Care Nurse Name: Baljit Martínez RN Position: S RN Member Role: Primary Care Nurse Name: Sabine Guthrie RN Position: S RN Member Role: Primary Care Nurse Name: Aditi Hernandez RN Position: S RN Member Role: Primary Care Nurse Name: Piyush Moore RN Position: S RN Member Role: Primary Care Nurse Name: iMs Vences RN Position: S RN Member Role: Primary Care Nurse Name: Angie Lopez RN Position: S RN Member Role: Primary Care Nurse Name: Lizzie Estrada RN Position: S RN Member Role: Primary Care Nurse Care Team Related Persons Name: MIKEY SEAY Address: home [address] [address] Name: MIKEY AYALA Address: [address] [place] [address] Name: TANIA COPPOLA Address: home [address] [place] [id number] Name: TANIA MUÑIZ Address: [place] [address]
--- OUTSIDE RECORDS SUMMARY | 2023-02-20 15:17 | XMS_ITS | Continuity of Care Document ---
Author Name Unknown Organization [facility] Address [address] [place] [address]- Care Team Providers Care Floating Operator Name Role Phone ChristinaAntioneMeagan pena DO Primary Care Physici an [place] [facility] [place] 10[place]08[place] - 11/26/19 [facility] [address] [place] [address] [facility] Attending Physician: Luis F Rowland MD [...] Note: VIS GIVEN-DATED 05/30/11 2Result Comment: LOT [id number] EXP 04 MAY 2010 3Admin Note: VIS [...] 01/29/19 10:06:52 EDT, Route to Pharmacy Electronically, [id number], [facility] [place] [address] Start Date: 01/29/19 Stop Date: 01/24/20 Status: Ordered docusate sodium 100 mg oral capsule 200 mg, 2, capsule, By Mouth, 2 times a day, Refills 0, Maintenance, 06/01/19 9:40:43 EDT Start Date: 06/01/19 Status: Ordered Freestyle Lite Lancets See Instructions, # 150 each, Refills 11, Tot. Refills 11, Maintenance, use to check bs four times daily and prn for uncontrolled DM type II, 03/28/18 13:40:58 EDT, Compound Start Date: 03/28/18 Status: Ordered Freestyle Lite Test Strips See [...] 03/06/19 17:12:53 EDT, Route to Pharmacy Electronically, [id number], [facility] [address] Start Date: 03/06/19 Status: Ordered insulin glargine [...] 05/13/19 13:22:55 EDT, pt was transferred to [facility], all meds left beh... Start Date: 05/13/19 [...] HS Start Date: 01/29/19 Status: Ordered Pen [place], 31 G x 5 mm BD Ultra [...] Subcutaneous Injection, Every week, # 2.5 mL, 1 Refills, Maintenance, 09/05/19 10:48:01 EDT, Solution Start Date: 09/05/19 Status: Ordered Zofran 4 mg oral tablet [...] Umbilical hernia(Confirmed) Active 1per 2017 and 2019 [facility] notes Social History Social History Type Response Smoking Status Never (less than 100 in lifetime) entered on: 09/03/19 Sex Female 1per pt
--- OUTSIDE RECORDS SUMMARY | 2023-02-20 15:17 | XMS_ITS | Continuity of Care Document ---
Author Name Unknown Organization [facility] Address [address] [place] [address]- Care Team Providers Care Sheet Metal Duct Installer Apprentice Name Role Phone Sangeetha MOSHER, Marcia Koroma Primary Care Physician [phone] Encounter [facility] Date(s): 05/25/20 - 06/24/[address] [address] [facility] Attending Physician: Satish Whittington Admitting Physician: Satish Whittington Referring Physician: AdmtrSatish Allergies, Adverse Reactions, Alerts Substance Reaction Severity [...] Note: VIS GIVEN-DATED 05/30/11 2Result Comment: LOT [id number] EXP 04 MAY 2010 3Admin Note: VIS [...] 02/03/20 12:39:00 EDT, Route to Pharmacy Electronically, [facility] #[id number], 170, cm, 12/16/19 10:11:00 EST, Height, 100.5, kg, 05/30/19 9:39:00 EDT, Dry... Start Date: 02/03/20 Stop Date: 01/28/21 Status: Ordered aspirin 81 mg oral delayed release tablet 81 mg, 1, tablet, By Mouth, Daily, # 30 tablet, Refills 11, Tot. Refills 11, Maintenance, 05/20/20 14:45:00 EDT, Route to Pharmacy Electronically, [facility] #[id number], 170, cm, 05/20/20 14:08:00 EDT, Height, 100.5, kg, 05/30/19 9:39:00 EDT, Start Date: 05/20/20 Status: Ordered atorvastatin 10 mg oral tablet 1 tablet = 10 mg, By Mouth, Daily, # 30 tablet, 11 Refills, Maintenance, 05/20/20 14:46:00 EDT, [facility] #[id number], 170, cm, 05/20/20 14:08:00 EDT, Height, 100.5, [...] 03/06/19 17:12:53 EDT, Route to Pharmacy Electronically, [id number], [facility] [address] Start Date: 03/06/19 Status: Ordered Insulin Syringe, BD Ultra-Fine 0.5 cc 31 G x 8 mm (5/16in) See Instructions, # 150 each, Refills 11, Tot. Refills 11, Maintenance, use as directed for Type 2 Diabetes Mellitus to admisiter insulin four times a day. Dx; E11.9, 05/20/20 15:10:00 EDT, pt was transferred to [facility], all meds left beh... Start Date: 05/20/20 Stop Date: 05/15/21 Status: Ordered Lantus 100 u/ml subcutaneous solution = 40 units, Subcutaneous Infusion, 2 times a day, # 15 mL, 11 Refills, Maintenance, 04/28/20 11:50:00 EDT, [facility] #[id number], 170, cm, 04/02/20 13:31:00 EDT, Height, 100.5, kg, 05/30/19 9:39:00 EDT, Dry Weight Start Date: 04/28/20 Stop Date: 04/23/21 Status: Ordered lisinopril 40 mg oral tablet 1 tablet = 40 mg, By Mouth, Daily, # 90 tablet, 4 Refills, Maintenance, 02/03/20 12:39:00 EDT, Tablet, [facility] #[id number], 170, cm, 12/16/19 10:11:00 EST, Height, 100.5, kg, 05/30/19 9:39:00EDT, Dry Weight Start Date: 02/03/20 Stop Date: 04/28/21 Status: Ordered Melatonin 5 mg oral tablet 0 Refills, Maintenance, 01/29/19 10:09:09 EDT Start Date: 01/29/19 Status: Ordered NovoLOG 100 units/mL injectable solution = 20 units, Subcutaneous Infusion, 3 times a day before meals, replaces humalog, # 50 mL, 1 Refills, Maintenance, 02/09/20 16:58:00 EDT, [facility] #[id number], 170, cm, 12/16/19 10:11:00 EST, Height, 100.5, [...] 0 Refills, Maintenance, 05/20/20 15:09:00 EDT, Ointment, [facility] #[id number], 1 application Topically 2 times a day,x14 days,Instr:apply a thin film; to aff... Start Date: 05/20/20 Stop Date: 06/03/20 Status: Ordered Trulicity Pen 1.5 mg/0.5 mL subcutaneous solution 0.5 mL = 1.5 mg, Subcutaneous Injection, Every week, # 2.5 mL, 5 Refills, Maintenance, 02/03/20 10:19:00 EDT, Solution, [facility] #[id number], 170, cm, 12/16/19 10:11:00 EST, Height, 100.5, [...] Umbilical hernia(Confirmed) Active 1per 2017 and 2019 [facility] notes Social History Social History Type Response Smoking Status Never (less than 100 in lifetime) entered on: 09/03/19 Sex Female 1per pt
--- OUTSIDE RECORDS SUMMARY | 2023-02-20 15:17 | XMS_ITS | Continuity of Care Document ---
Author Name Unknown Organization [facility] Address [address] [place] [address]- Care Team Providers Care Superintendent Sales Name Role Phone Allegra Aguayo MD Primary Care Physician Encounter [facility] Date(s): 09/20/22 - 10/20/22 [facility] [address] [place] [id number] Attending Physician: Not on Staff, Attending MD Allergies, Adverse Reactions, Alerts Substance Reaction Severity Status ibuprofen ABD PAIN Active morphine Vomiting and itchy Active traMADol Itchy, Hives Active Immunizations Given and Recorded Vaccine Date Status Refusal Reason SARS-CoV-2 mRNA (mleuaaz-[id number]) vax 02/22/22 Recorded SARS-CoV-2 (COVID-19) mRNA BNT-162b2 [...] Note: VIS GIVEN-DATED 05/30/11 2Result Comment: LOT [id number] EXP 04 MAY 2010 3Admin Note: VIS [...] 04/24/22 9:05:00 EDT, Route to Pharmacy Electronically, [facility], Partial fill upon patient request if the prescription is for a schedule II opio... Start Date: 04/24/22 Status: Ordered ammonium lactate 5% topical lotion 1 application, Topically, 2 times a day, # 240 Gm, 0 Refills, Maintenance, 05/01/22 12:34:00 EDT, Lotion, [facility]/pharmacy #[id number], Partial fill upon patient request if the prescription is for a schedule II opioid drug., 1 application Topically 2 times a da... Start Date: 05/01/22 Stop Date: 05/31/22 Status: Ordered aspirin 81 mg oral delayed release tablet 81 mg, By Mouth, Daily, # 30 tablet, Refills 5, Tot. Refills 5, Maintenance, 05/13/22 16:40:00 EDT,Route to Pharmacy Electronically, [facility], Partial fill upon patient request if the prescription is for a schedule II opioid drug.,... Start Date: 05/13/22 Stop Date: 11/09/22 Status: Ordered atorvastatin 40 mg oral tablet 1 tablet = 40 mg, By Mouth, Daily, # 90 tablet, 2 Refills, Maintenance, 04/24/22 9:41:00 EDT, Tablet, [facility], Partial fill upon patient request [...] 07/26/22 16:13:00 EDT, Route to Pharmacy Electronically, [facility]/pharmacy #[id number], Partial fill upon patient request if the prescription is for a schedule II opi... Start Date: 07/26/22 Stop Date: 01/22/23 Status: Ordered Colace sodium 100 mg oral capsule 100 mg, 1, capsule, By Mouth, 2 times a day, PRN, # 60 capsule, Refills 0, Tot. Refills 0, Maintenance, for constipation, 03/16/22 14:30:00 EDT, Route to Pharmacy Electronically, [facility], Partial fill upon patient request [...] 0 Refills, Maintenance, 09/21/22 11:57:00 EST, Tablet, [facility]/pharmacy #[id number], Partial fill upon patient request if the [...] 10/16/22 10:25:00 EST, Route to Pharmacy Electronically, [facility] #[id number], Partial fill upon patientrequest if the prescription [...] Refills, Soft Stop, 10/16/22 8:19:00 EST, Solution, [facility]/pharmacy #[id number], Partial fill upon patient request [...] 09/20/22 11:19:00 EST, Route to Pharmacy Electronically, [facility]/pharmacy #[id number], Partial fillupon patient request if the prescription is for a s... Start Date: 09/20/22 Status: Ordered levoFLOXacin 250 mg oral tablet 1 tablet = 250 mg, By Mouth, Every 24 hours, # 14 tablet, 0 Refills, Maintenance, 09/20/22 11:28:00EST, Tablet, [facility]/pharmacy #[id number], Partial fill upon patient request if the prescription is for a schedule II opioid drug., 169, cm, 09/20/22 9:22:00 EST... Start Date: 09/20/22 Stop Date: 10/04/22 Status: Ordered lisinopril 10 mg oral tablet 10 mg, 1, tablet, By Mouth, Daily, # 90 tablet, Refills 1, Tot. Refills 1, Maintenance, 10/16/22 10:24:00 EST, Route to Pharmacy Electronically, [facility] #[id number], Partial fill upon patientrequest if the prescription is for a schedule II op... Start Date: 10/16/22 Stop Date: 04/14/23 Status: Ordered NovoLOG FlexPen 100 units/mL injectable solution = 20 units, Subcutaneous Injection, 3 times a day before meals, INJECT 20 UNITS INTO SKIN THREE TIMES DAILY BEFORE A MEAL, # 15 mL, 10 Refills, Maintenance, 08/01/22 16:09:00 EDT, [facility] 169, cm, 08/01/22 14:14:00 EDT, Height, [...] Acute 10/24/22 15:48:00 EST, 10/10/22 15:48:00 EST, [facility]/pharmacy #[id number], Partial fill upon patient request [...] 04/24/22 9:03:00 EDT, Route to Pharmacy Electronically, [facility], Partial fill upon patient request if the prescription is for a schedule II opio... Start Date: 04/24/22 Status: Ordered ProAir HFA 90 mcg/inh inhalation aerosol 1 puffs, Inhalation, Every 4 hours, PRN as needed for wheezing, # 18 Gm, 0 Refills, Maintenance, 10/03/22 6:38:00 EST, Aerosol, [facility] #[id number], Partial fill upon patient request if the [...] 2 Refills, Maintenance, 10/16/22 13:14:00 EST, Solution, [facility]/pharmacy #[id number], Partial fill upon patient request if the prescription is for a schedule II opioid drug., 169, cm, 10/09/22 8:39... Start Date: 10/16/22 Status: Ordered Ventolin HFA 108 mcg/inh inhalation aerosol with adapter 2 puffs, Inhalation, Every 6 hours, PRN Wheezing/Shortness of Breath, # 8 Gm, 1 Refills, Maintenance, 05/30/22 10:56:00 EDT, [facility], Partial fill upon patient request [...] Obese class II Confirmed Active BHN/CCA/CP- Angle [phone] retirement active care coordination Confirmed Active Peripheral vascular disease - right SFA angioplasty/right great toe amputation 2021 Confirmed Active Umbilical hernia Confirmed Active 1per 2016 and 2018 [facility] notes Social History Social History Type Response Smoking Status Never (less than 100 in lifetime) entered on: 09/03/19 Sex 1per pt Patient Care team information Care Team Personnel Name: Allegra Aguayo MD Position: [facility] Resident Member Role: PCP Address: Address: [address] [place] [address] Name: Vera Locke RN Position: S RN Member Role: Primary Care Nurse Name: Baljit Martínez RN Position: [facility] RN Member Role: Primary Care Nurse Name: Sabine Guthrie RN Position: [facility] RN Member Role: Primary Care Nurse Name: Aditi Hernandez RN Position: S RN Member Role: Primary Care Nurse Name: Piyush Moore RN Position: [facility] RN Member Role: Primary Care Nurse Name: Mis Vences RN Position: S RN Member Role: Primary Care Nurse Name: Angie Lopez RN Position: [facility] RN Member Role: Primary Care Nurse Name: Lizzie Estrada RN Position: [facility] RN Member Role: Primary Care Nurse Care Team Related Persons Name: MIKEY SEAY Address: home [address] [address] Name: MIKEY AYALA Address: home [address] [place] [address] Name: TANIA COPPOLA Address: home [address] [place] [id number] Name: TANIA MUÑIZ Address: home [address] [place] [address]
--- OUTSIDE RECORDS SUMMARY | 2023-02-20 15:17 | XMS_ITS | Continuity of Care Document ---
Author Name Unknown Organization [facility] Address [address] [place] [address]- Care Team Providers Care Director Of Entertainment Name Role Phone Olivier MOSHER, Allegra Primary Care Physician Encounter [facility] Date(s): 07/31/22 - 08/30/22 [facility] [address] [place], [place] [address] Allergies, Adverse Reactions, Alerts Substance Reaction Severity Status ibuprofen ABD PAIN Active traMADol Itchy, Hives Active morphine Vomiting and itchy Active Immunizations Given and Recorded Vaccine Date Status Refusal Reason SARS-CoV-2 mRNA (swruohe-dbtg-gtawq) vax 02/22/22 Recorded SARS-CoV-2 (COVID-19) mRNA BNT-162b2 [...] Note: VIS GIVEN-DATED 05/30/11 2Result Comment: LOT [id number] EXP 04 MAY 2010 3Admin Note: VIS [...] Maintenance, 05/13/22 16:40:00 EDT,Route to Pharmacy Electronically, [facility]., Partial fill upon patient request if the prescription is for a schedule II opioid drug.,... Start Date: 05/13/22 Stop Date: 11/09/22 Status: Ordered atorvastatin 40 mg oral tablet 1 tablet = 40 mg, By Mouth, Daily, # 90 tablet, 2 Refills, Maintenance, 04/24/22 9:41:00 EDT, Tablet, [facility]., Partial fill upon patient request if the [...] 07/07/22 15:52:00 EDT, Route to Pharmacy Electronically, [facility], [...] 6 Refills, Soft Stop, 08/01/22 16:09:00EDT, Solution, [facility], Partial fill upon patient request if the prescription isfor a schedule II opioid drug., 169, cm, 08/01/22 1... Start Date: 08/01/22 Stop Date: 04/22/24 Status: Ordered lisinopril 10 mg oral tablet 10 mg, 1, tablet, By Mouth, Daily, # 90 tablet, Refills 4, Tot. Refills 4, Maintenance, 07/12/22 10:12:00 EDT, Route to Pharmacy Electronically, [facility] #[id number], Partial fill upon patientrequest if the prescription is for a schedule II op... Start Date: 07/12/22 Stop Date: 10/05/23 Status: Ordered NovoLOG FlexPen 100 units/mL injectable solution = 20 units, Subcutaneous Injection, 3 times a day before meals, INJECT 20 UNITS INTO SKIN THREE TIMES DAILY BEFORE A MEAL, # 15 mL, 10 Refills, Maintenance, 08/01/22 16:09:00 EDT, [facility]., 169, cm, 08/01/22 14:14:00 EDT, Height, 104... [...] Acute 09/11/22 16:30:00 EST, 08/28/22 16:30:00 EDT, [facility]/pharmacy #[id number], Partial fill upon patient [...] 0 Refills, Maintenance, 04/18/22 9:51:00 EDT, Aerosol, [facility], Partial fill upon patient request [...] 0 Refills, Maintenance, 03/09/22 14:21:00 EDT, Gel, [facility], Partial fill upon patient request if the p... Start Date: 03/09/22 Status: Ordered traZODone 300 mg oral tablet 1 tablet = 300 mg, By Mouth, Daily at bedtime Start Date: 03/03/22 Status: Ordered Trulicity Pen 4.5 mg/0.5 mL subcutaneous solution = 0.5 mL, Subcutaneous Injection, Every week, rotate injection sites, # 6 mL, 4 Refills, Maintenance, 07/19/22 10:42:00 EDT, Solution, [facility] #[id number], Partial fill upon patient request if the prescription is for a schedule II opioid drug.... Start Date: 07/19/22 Status: Ordered Tylenol 8 Hour 650 mg oral tablet, extended release 2 tablet = 1,300 mg, By Mouth, Every 8 hours, PRN as needed for pain, # 24 tablet, 0 Refills, Maintenance, 04/24/22 9:43:00 EDT, ER Tablet, [facility], Partial fill upon patient request if the prescription is for a schedule II opioid d... Start Date: 04/24/22 Status: Ordered Ventolin HFA 108 mcg/inh inhalation aerosol with adapter 2 puffs, Inhalation, Every 6 hours, PRN Wheezing/Shortness of Breath, # 8 Gm, 1 Refills, Maintenance, 05/30/22 10:56:00 EDT, [facility], Partial fill upon patient request [...] Obese class II Confirmed Active BHN/CCA/CP- Angle [phone] correction active care coordination Confirmed Active Peripheral vascular disease Confirmed Active Umbilical hernia Confirmed Active 1per 2016 and 2018 [facility] notes Social History Social History Type Response Smoking Status Never (less than 100 in lifetime) entered on: 09/03/19 Sex 1per pt Patient Care team information Personnel Name: Allegra Aguayo MD Address: Address: [address] [place] [address] [place], [place] [address]
--- OUTSIDE RECORDS SUMMARY | 2023-02-20 15:17 | XMS_ITS | Continuity of Care Document ---
Author Name Unknown Organization [facility] Address [address] [place] [address]- Care Team Providers Care Plant Science Professor Name Role Phone Sangeetha MOSHER, Marcia Koroma Primary Care Physician Encounter [facility] Date(s): 12/07/20 - 01/06/21 [facility] [address] [place] [id number] Allergies, Adverse Reactions, Alerts Substance Reaction [...] Note: VIS GIVEN-DATED 05/30/11 2Result Comment: LOT [id number] EXP 04 MAY 2010 3Admin Note: VIS given Medications albuterol 90 mcg/inh inhalation powder 2 puffs, Inhalation, Every 6 hours, PRN as needed, # 1 each, 11 Refills, Maintenance, 12/08/20 11:02:00 EST, Powder, [facility] #[id number], 2 puffs Inhalation Every 6 hours,PRN:as needed, [...] 07/30/20 18:34:00 EDT, Route to Pharmacy Electronically, [facility] #[id number], 170, cm, 05/20/20 14:48:00 EDT, Height, 100.5, kg, 05/30/19 9:39:00 EDT, Dry... Start Date: 07/30/20 Stop Date: 07/25/21 Status: Ordered aspirin 81 mg oral delayed release tablet 81 mg, 1, tablet, By Mouth, Daily, # 30 tablet, Refills 11, Tot. Refills 11, Maintenance, 05/20/20 14:45:00 EDT, Route to Pharmacy Electronically, [facility] #[id number], 170, cm, 05/20/20 14:08:00 EDT, Height, 100.5, kg, 05/30/19 9:39:00 EDT, Start Date: 05/20/20 Status: Ordered atorvastatin 10 mg oral tablet 1 tablet = 10 mg, By Mouth, Daily, # 30 tablet, 11 Refills, Maintenance, 05/20/20 14:46:00 EDT, [facility] #[id number], 170, cm, 05/20/20 14:08:00 EDT, Height, 100.5, [...] 0 Refills, Maintenance, 09/02/20 14:20:00 EDT, Ointment, [facility] #[id number], 1 application Topically 2 times a day, [...] 09/10/20 18:41:00 EST, pt was transferred to [facility]... Start Date: 09/10/20 Stop Date: 03/09/21 Status: Ordered Insulin Syringe, BD Ultra-Fine 0.5 cc 31 G x 8 mm (5/16in) See Instructions, # 150 each, Refills 11, Tot. Refills 11, Maintenance, use as directed for Type 2 Diabetes Mellitus to admisiter insulin four times a day. Dx; E11.9, 05/15/21 15:10:00 EDT, pt was transferred to [facility], all meds left [facility]... Start Date: 05/15/21 Stop Date: 05/10/22 Status: Ordered Lantus 100 u/ml subcutaneous solution = 40 units, Subcutaneous Infusion, 2 times a day, # 15 mL, 3 Refills, Maintenance, 12/16/20 14:02:00 EST, [facility] #[id number], 170, cm, 05/20/20 14:48:00 EDT, Height, 100.5, kg, 05/30/19 9:39:00 EDT, Dry Weight Start Date: 12/16/20 Stop Date: 04/15/21 Status: Ordered lisinopril 40 mg oral tablet 1 tablet = 40 mg, By Mouth, Daily, # 90 tablet, 4 Refills, Maintenance, 02/03/20 12:39:00 EDT, Tablet, [facility] #[id number], 170, cm, 12/16/19 10:11:00 EST, Height, 100.5, [...] mL, 1 Refills, Maintenance, 12/17/20 13:06:00 EST, [facility] #[id number], 170, cm, 05/20/2014:48:00 EDT, Height, 100.5, kg, 05/30/19 9:39:00 E... Start Date: 12/17/20 Status: Ordered OXcarbazepine 300 mg oral tablet TK 1 T PO BID Start Date: 01/29/19 Status: Ordered PARoxetine 40 mg oral tablet TK 1 T PO HS Start Date: 01/29/19 Status: Ordered Pen [place], 31 G x 5 mm BD Ultra [...] 1 Refills, Maintenance, 12/21/20 10:40:00 EST, Tablet, [facility] #[id number], Partial fill upon patient request if the [...] 0 Refills, Maintenance, 05/20/20 15:09:00 EDT, Ointment, [facility] #[id number], 1 application Topically 2 times a day,x14 days,Instr:apply a thin film; to aff... Start Date: 05/20/20 Stop Date: 06/03/20 Status: Ordered Trulicity Pen 0.75 mg/0.5 mL subcutaneous solution 0.5 mL = 0.75 mg, Subcutaneous Injection, Every week, rotate injection sites, # 2 mL, 2 Refills, Maintenance, 01/03/21 13:20:00 EST, Solution, [facility] #[id number], Partial fill upon patient request if the prescription is for a schedule II opio... Start Date: 01/03/21 Status: Ordered Trulicity Pen 1.5 mg/0.5 mL subcutaneous solution 0.5 mL = 1.5 mg, Subcutaneous Injection, Every week, # 2.5 mL, 5 Refills, Maintenance, 01/25/21 8:56:00 EDT, [facility] #[id number], 170, cm, 05/20/20 14:48:00 EDT, Height, 100.5, [...] Microalbuminuria(Confirmed) Active Morbid obesity(Confirmed) Active BHN/KELVIN/AUDRA-Mignon Peters [phone]/[facility] active care coordination(Confirmed) Active Peripheral vascular disease(Confirmed) Active Umbilical hernia(Confirmed) Active 1per 2017 and 2018 [facility] notes Social History Social History Type Response Smoking Status Never (less than 100 in lifetime) entered on: 09/03/19 Sex Female 1per pt
--- OUTSIDE RECORDS SUMMARY | 2023-02-20 15:17 | XMS_ITS | Continuity of Care Document ---
Author Name Unknown Organization [facility] Address [address] [place] [address]- Care Team Providers Care Hog Operator Name Role Phone Olivier MOSHER, Allegra Primary Care Physician Encounter [facility] Date(s): 04/25/22 - 05/25/22 [facility] [address] [place], [place] [address] Allergies, Adverse Reactions, Alerts Substance Reaction Severity Status ibuprofen ABD PAIN Active morphine Vomiting and itchy Active traMADol Itchy, Hives Active Immunizations Given and Recorded Vaccine Date Status Refusal Reason SARS-CoV-2 mRNA (likoxyn-xrrf-ehytt) vax 02/22/22 Recorded SARS-CoV-2 (COVID-19) mRNA BNT-162b2 [...] Note: VIS GIVEN-DATED 05/30/11 2Result Comment: LOT [id number] EXP 04 MAY 2010 3Admin Note: VIS [...] 04/24/22 9:05:00 EDT, Route to Pharmacy Electronically, [facility], Partial fill upon patient request if the prescription is for a schedule II opio... Start Date: 04/24/22 Status: Ordered ammonium lactate 5% topical lotion 1 application, Topically, 2 times a day, # 240 Gm, 0 Refills, Maintenance, 05/01/22 12:34:00 EDT, Lotion, [facility]/pharmacy #[id number], Partial fill upon patient request if the prescription is for a schedule II opioid drug., 1 application Topically 2 times a da... Start Date: 05/01/22 Stop Date: 05/31/22 Status: Ordered aspirin 81 mg oral delayed release tablet 81 mg, By Mouth, Daily, # 30 tablet, Refills 5, Tot. Refills 5, Maintenance, 05/13/22 16:40:00 EDT,Route to Pharmacy Electronically, [facility], Partial fill upon patient request if the prescription is for a schedule II opioid drug.,... Start Date: 05/13/22 Stop Date: 11/09/22 Status: Ordered atorvastatin 40 mg oral tablet 1 tablet = 40 mg, By Mouth, Daily, # 90 tablet, 2 Refills, Maintenance, 04/24/22 9:41:00 EDT, Tablet, [facility], Partial fill upon patient request if [...] 05/13/22 16:40:00 EDT, Route to Pharmacy Electronically, [facility], Partial fill upon patient request if the prescription is for a schedul... Start Date: 05/13/22 Stop Date: 11/09/22 Status: Ordered Colace sodium 100 mg oral capsule 100 mg, 1, capsule, By Mouth, 2 times a day, PRN, # 60 capsule, Refills 0, Tot. Refills 0, Maintenance, for constipation, 03/16/22 14:30:00 EDT, Route to Pharmacy Electronically, [facility], Partial fill upon patient request if [...] 04/24/22 9:02:00 EDT, Route to Pharmacy Electronically, [facility], Partial fill upon patient request if the prescription is for a schedule II opio... Start Date: 04/24/22 Status: Ordered insulin aspart 100 units/mL subcutaneous solution = 20 units, Subcutaneous Injection, 3 times a day before meals, # 10 mL, 11 Refills, Maintenance, 03/10/22 9:06:00 EDT, [facility], [id number], Partial fill upon patient request if theprescription [...] tablet, 1 Refills, Maintenance, 05/15/22 16:38:00 EDT, [facility]/pharmacy#[id number], resent - not recvd, 169, cm, 05/01/22 10:56:00 EDT, Height, 104.9, kg, 03/04/22 2:58:00 EDT,Dry Weight Start Date: 05/15/22 Status: Ordered Lantus 100 u/ml subcutaneous solution = 30 units, Subcutaneous Injection, 2 times a day, # 10 mL, 5 Refills, Maintenance, 03/10/22 9:05:00 EDT, Solution, [facility] #[id number], Partial fill upon patient request if the prescription is for a schedule II opioid drug., 169, cm, 03/09/22... Start Date: 03/10/22 Status: Ordered lisinopril 10 mg oral tablet 10 mg, 1, tablet, By Mouth, Daily, # 30 tablet, Refills 4, Tot. Refills 4, Maintenance, 04/24/22 9:41:00 EDT, Route to Pharmacy Electronically, [facility], Partial fill upon patient request if [...] 05/24/22 10:39:00 EDT, Route to Pharmacy Electronically, [facility]/pharmacy #[id number], Partial fill upon patient... Start [...] 04/24/22 9:03:00 EDT, Route to Pharmacy Electronically, [facility], Partial fill upon patient request if [...] 0 Refills, Maintenance, 04/18/22 9:51:00 EDT, Aerosol, [facility], Partial fill upon patient request if [...] 0 Refills, Maintenance, 03/09/22 14:21:00 EDT, Gel, [facility], Partial fill upon patient request if the p... Start Date: 03/09/22 Status: Ordered traZODone 300 mg oral tablet 1 tablet = 300 mg, By Mouth, Daily at bedtime Start Date: 03/03/22 Status: Ordered Trulicity Pen 3 mg/0.5 mL subcutaneous solution See Instructions, ADMINISTER 0.5 ML UNDER THE SKIN EVERY WEEK. ROTATE INJECTION SITES, # 2 mL, 11 Refills, 03/09/22 14:22:00 EDT, [facility]., 169, cm, 03/09/22 13:46:00 EDT, Height, 104.9, kg, 03/04/22 2:58:00 EDT, Dry Weight Start Date: 03/09/22 Status: Ordered Tylenol 8 Hour 650 mg oral tablet, extended release 2 tablet = 1,300 mg, By Mouth, Every 8 hours, PRN as needed for pain, # 24 tablet, 0 Refills, Maintenance, 04/24/22 9:43:00 EDT, ER Tablet, [facility], Partial fill upon patient request if [...] Obese class I(Confirmed) Active BHN/CCA/Luis Felipe Peters [phone]/Health retirement active care coordination(Confirmed) Active Peripheral vascular disease(Confirmed) Active Uncontrolled type 1 diabetes mellitus with hyperglycemia, with long-term current use of insulin(Confirmed) Active Umbilical hernia(Confirmed) Active 1per 2016 and 2019 [facility] notes Social History Social History Type Response Smoking Status Never (less than 100 in lifetime) entered on: 09/03/19 Sex 1per pt
--- OUTSIDE RECORDS SUMMARY | 2023-02-20 15:17 | XMS_ITS | Continuity of Care Document ---
Author Name Unknown Organization [facility] Address [address] [place] [address]- Care Team Providers Care Research Nutritionist Name Role Phone Olivier MOSHER, Allegra Primary Care Physician [phone] Encounter [facility] [facility] Date(s): 10/29/22 - 11/28/22 [facility] [address] [place] [id number] Allergies, Adverse Reactions, Alerts Substance Reaction Severity Status ibuprofen ABD PAIN Active morphine Vomiting and itchy Active traMADol Itchy, Hives Active Immunizations Given and Recorded Vaccine Date Status Refusal Reason SARS-CoV-2 mRNA ([id number]) vax 02/22/22 Recorded SARS-CoV-2 (COVID-19) mRNA BNT-162b2 [...] Note: VIS GIVEN-DATED 05/30/11 2Result Comment: LOT [id number] EXP 04 MAY 2010 3Admin Note: VIS [...] 04/24/22 9:05:00 EDT, Route to Pharmacy Electronically, [facility], Partial fill upon patient request if the prescription is for a schedule II opio... Start Date: 04/24/22 Status: Ordered ammonium lactate 5% topical lotion 1 application, Topically, 2 times a day, # 240 Gm, 0 Refills, Maintenance, 05/01/22 12:34:00 EDT, Lotion, [facility]/pharmacy #[id number], Partial fill upon patient request if the prescription is for a schedule II opioid drug., 1 application Topically 2 times a da... Start Date: 05/01/22 Stop Date: 05/31/22 Status: Ordered aspirin 81 mg oral delayed release tablet 81 mg, By Mouth, Daily, # 30 tablet, Refills 0, Tot. Refills 0, Maintenance, 11/09/22 16:40:00 EST,Route to Pharmacy Electronically, [facility]/pharmacy #[id number], Partial fill upon patient request if the prescription is for a schedule II opioid drug., 169, cm,... Start Date: 11/09/22 Stop Date: 12/09/22 Status: Ordered atorvastatin 40 mg oral tablet 1 tablet = 40 mg, By Mouth, Daily, # 90 tablet, 2 Refills, Maintenance, 04/24/22 9:41:00 EDT, Tablet, [facility], Partial fill upon patient request if [...] 07/26/22 16:13:00 EDT, Route to Pharmacy Electronically, [facility]/pharmacy #[id number], Partial fill upon patient request if the pres... Start Date: 07/26/22 Stop Date: 01/22/23 Status: Ordered carvedilol 25 mg oral tablet 25 mg, 1, tablet, By Mouth, 2 times a day, # 60 tablet, Refills 2, Tot. Refills 2, Maintenance, 01/22/23 16:13:00 EDT, Route to Pharmacy Electronically, [facility]/pharmacy #[id number], Partial fill upon patient request if the prescription is for a schedule II opi... Start Date: 01/22/23 Stop Date: 04/22/23 Status: Ordered Colace sodium 100 mg oral capsule 100 mg, 1, capsule, By Mouth, 2 times a day, PRN, # 60 capsule, Refills 0, Tot. Refills 0, Maintenance, for constipation, 03/16/22 14:30:00 EDT, Route to Pharmacy Electronically, [facility], Partial fill upon patient request if [...] 0 Refills, Maintenance, 09/21/22 11:57:00 EST, Tablet, [facility]/pharmacy #[id number], Partial fill upon patient request [...] 10/16/22 10:25:00 EST, [facility]ically, [id number], Partial fill upon patientrequest if the prescription [...] Refills, Soft Stop, 10/16/22 8:19:00 EST, Solution, [facility]/pharmacy #[id number], Partial fill upon patient request [...] 09/20/22 11:19:00 EST, Route to Pharmacy Electronically, [facility]/pharmacy #[id number], Partial fillupon patient request if the prescription is for a s... Start Date: 09/20/22 Status: Ordered levoFLOXacin 250 mg oral tablet 1 tablet = 250 mg, By Mouth, Every 24 hours, # 14 tablet, 0 Refills, Maintenance, 09/20/22 11:28:00EST, Tablet, [facility]/pharmacy #[id number], Partial fill upon patient request if the prescription is for a schedule II opioid drug., 169, cm, 09/20/22 9:22:00 EST... Start Date: 09/20/22 Stop Date: 10/04/22 Status: Ordered lisinopril 10 mg oral tablet 10 mg, 1, tablet, By Mouth, Daily, # 90 tablet, Refills 1, Tot. Refills 1, Maintenance, 10/16/22 10:24:00 EST, [id number], Partial fill upon patientrequest if the prescription is for a schedule II op... Start Date: 10/16/22 Stop Date: 04/14/23 Status: Ordered NovoLOG FlexPen 100 units/mL injectable solution = 20 units, Subcutaneous Injection, 3 times a day before meals, INJECT 20 UNITS INTO SKIN THREE TIMES DAILY BEFORE A MEAL, # 15 mL, 10 Refills, Maintenance, 08/01/22 16:09:00 EDT, [facility]., 169, cm, 08/01/22 14:14:00 EDT, Height, [...] tablet, 0 Refills, Maintenance, 11/28/22 13:29:00 EST, [facility]/pharmacy #[id number], Partial fill upon patient request if the [...] 04/24/22 9:03:00 EDT, Route to Pharmacy Electronically, [facility], Partial fill upon patient request if [...] 0 Refills, Maintenance, 11/22/22 12:11:00 EST, Ointment, [facility]/pharmacy #[id number], Partial fill upon patient request [...] 2 Refills, Maintenance, 10/16/22 13:14:00 EST, Solution, [facility]/pharmacy #[id number], Partial fill upon patient request if the prescription is for a schedule II opioid drug., 169, cm, 10/09/22 8:39... Start Date: 10/16/22 Status: Ordered Ventolin HFA 108 mcg/inh inhalation aerosol with adapter 1 puffs, Inhalation, Every 4 hours, PRN NEEDED FOR WHEEZING, # 18 Gm, 0 Refills, Maintenance, 11/02/22 8:15:00 EST, [facility] #[id number], 169, cm, 11/01/22 11:21:00 EST, Height, 103.42, [...] Active Morbid obesity Confirmed Active BHN/CCA/CP- Angle [id number] fci active care coordination Confirmed Active Peripheral [...] DOTHAN Resident Member Role: PCP Address: Address: [address] [place] [address] Name: Vera Locke RN Position: S [...] Persons Name: MIKEY SEAY Address: home [address] [address] Name: MIKEY AYALA Address: home [address] [place] [address] Name: TANIA COPPOLA Address: home [address] [place] [address] Name: TANIA MUÑIZ Address: home [address] [place] [address]
--- OUTSIDE RECORDS SUMMARY | 2023-02-20 15:17 | XMS_ITS | Continuity of Care Document ---
Author Name Unknown Organization [facility] Address [address] [place] [address]- Care Team Providers Care Can Cutter Name Role Phone Olivier MOSHER, Allegra Primary Care Physician [phone] Encounter [facility] [place] Date(s): 08/09/22 - 09/08/22 [facility] [address] [place] [address]- Allergies, Adverse Reactions, Alerts Substance Reaction Severity Status ibuprofen ABD PAIN Active morphine Vomiting and itchy Active traMADol Itchy, Hives Active Immunizations Given and Recorded Vaccine Date Status Refusal Reason SARS-CoV-2 mRNA (jfhelmj-[id number]) vax 02/22/22 Recorded SARS-CoV-2 (COVID-19) mRNA BNT-162b2 [...] Note: VIS GIVEN-DATED 05/30/11 2Result Comment: LOT [id number] EXP 04 MAY 2010 3Admin Note: VIS [...] Maintenance, 05/13/22 16:40:00 EDT,Route to Pharmacy Electronically, [facility], Partial fill upon patient request if the prescription is for a schedule II opioid drug.,... Start Date: 05/13/22 Stop Date: 11/09/22 Status: Ordered atorvastatin 40 mg oral tablet 1 tablet = 40 mg, By Mouth, Daily, # 90 tablet, 2 Refills, Maintenance, 04/24/22 9:41:00 EDT, Tablet, [facility] Partial fill upon patient request if the [...] 07/26/22 16:13:00 EDT, Route to Pharmacy Electronically, [facility]/pharmacy #[id number], Partial fill upon patient [...] 09/16/22 11:27:00 EST, 09/06/22 11:27:00 EDT, Tablet, [facility]/pharmacy #[id number], Partial fill upon patient [...] 07/07/22 15:52:00 EDT, [facility] to Pharmacy Electronically, [facility] [...] 6 Refills, Soft Stop, 08/01/22 16:09:00EDT, Solution, [facility] Partial fill upon patient request if the prescription isfor a schedule II opioid drug., 169, cm, 08/01/22 1... Start Date: 08/01/22 Stop Date: 04/22/24 Status: Ordered lisinopril 10 mg oral tablet 10 mg, 1, tablet, By Mouth, Daily, # 90 tablet, Refills 4, Tot. Refills 4, Maintenance, 07/12/22 10:12:00 EDT, [facility]ically[id number], Partial fill upon patientrequest if the prescription is for a schedule II op... Start Date: 07/12/22 Stop Date: 10/05/23 Status: Ordered NovoLOG FlexPen 100 units/mL injectable solution = 20 units, Subcutaneous Injection, 3 times a day before meals, INJECT 20 UNITS INTO SKIN THREE TIMES DAILY BEFORE A MEAL, # 15 mL, 10 Refills, Maintenance, 08/01/22 16:09:00 EDT, [facility] 169, cm, 08/01/22 14:14:00 EDT, Height, 104... [...] Acute 09/11/22 16:30:00 EST, 08/28/22 16:30:00 EDT, [facility]/pharmacy #[id number], Partial fill upon [...] 0 Refills, Maintenance, 04/18/22 9:51:00 EDT, Aerosol, [facility] Partial fill upon patient request if the [...] 0 Refills, Maintenance, 03/09/22 14:21:00 EDT, Gel, [facility] Partial fill upon patient request if the p... Start Date: 03/09/22 Status: Ordered traZODone 300 mg oral tablet 1 tablet = 300 mg, By Mouth, Daily at bedtime Start Date: 03/03/22 Status: Ordered Trulicity Pen 4.5 mg/0.5 mL subcutaneous solution = 0.5 mL, Subcutaneous Injection, Every week, rotate injection sites, # 6 mL, 4 Refills, Maintenance, 07/19/22 10:42:00 EDT, Solution, [facility] #[id number], Partial fill upon patient request if the prescription is for a schedule II opioid drug.... Start Date: 07/19/22 Status: Ordered Tylenol 8 Hour 650 mg oral tablet, extended release 2 tablet = 1,300 mg, By Mouth, Every 8 hours, PRN as needed for pain, # 24 tablet, 0 Refills, Maintenance, 04/24/22 9:43:00 EDT, ER Tablet, [facility] Partial fill upon patient request if the prescription is for a schedule II opioid d... Start Date: 04/24/22 Status: Ordered Ventolin HFA 108 mcg/inh inhalation aerosol with adapter 2 puffs, Inhalation, Every 6 hours, PRN Wheezing/Shortness of Breath, # 8 Gm, 1 Refills, Maintenance, 05/30/22 10:56:00 EDT, [facility] fill upon patient request if the prescription is for a schedule II opioid drug., 169, cm,... Start Date: 05/30/22 Status: Ordered Wheelchair See Instructions, # 1 [...] Obese class II Confirmed Active BHN/CCA/CP- Angle [id number] correction active care coordination Confirmed Active Peripheral vascular disease Confirmed Active Umbilical hernia Confirmed Active 1per 2016 and 2018 [facility] notes Social History Social History Type Response Smoking Status Never (less than 100 in lifetime) entered on: 09/03/19 Sex 1per pt Patient Care team information Personnel Name: Allegra Aguayo MD Address: Address: [address] [place] [address]
--- OUTSIDE RECORDS SUMMARY | 2023-02-20 15:17 | XMS_ITS | Continuity of Care Document ---
Author Name Unknown Organization [facility] Address [address] [place] [address]- Care Team Providers Care Release Engineer Name Role Phone Olivier MOSHER, Allegra Primary Care Physician [place] [facility] [place] 12/01[place] - 12/31/22 [facility] [address] [place] [address] Allergies, Adverse Reactions, Alerts Substance Reaction Severity Status ibuprofen ABD PAIN Active morphine Vomiting and itchy Active traMADol Itchy, Hives Active Immunizations Given and Recorded Vaccine Date Status Refusal Reason SARS-CoV-2 mRNA ([id number]) vax 02/22/22 Recorded SARS-CoV-2 (COVID-19) mRNA BNT-162b2 [...] Note: VIS GIVEN-DATED 05/30/11 2Result Comment: LOT [id number] EXP 04 MAY 2010 3Admin Note: VIS [...] 9:05:00 EDT, Route to Pharmacy Electronically, [facility], Partial fill upon patient request if the prescription is for a schedule II opio... Start Date: 04/24/22 Status: Ordered ammonium lactate 5% topical lotion 1 application, Topically, 2 times a day, # 240 Gm, 0 Refills, Maintenance, 05/01/22 12:34:00 EDT, Lotion, [facility]/pharmacy #[id number], Partial fill upon patient request if the prescription is for a schedule II opioid drug., 1 application Topically 2 times a da... Start Date: 05/01/22 Stop Date: 05/31/22 Status: Ordered aspirin 81 mg oral delayed release tablet 81 mg, By Mouth, Daily, # 30 tablet, Refills 2, Tot. Refills 2, Maintenance, 12/25/22 11:05:00 EST,Route to Pharmacy Electronically, [facility]/pharmacy #[id number], Partial fill upon patient request if the prescription is for a schedule II opioid drug., 169, cm,... Start Date: 12/25/22 Stop Date: 03/25/23 Status: Ordered atorvastatin 40 mg oral tablet 1 tablet = 40 mg, By Mouth, Daily, # 90 tablet, 2 Refills, Maintenance, 04/24/22 9:41:00 EDT, Tablet, [facility], Partial fill upon patient request if [...] 14:30:00 EDT, Route to Pharmacy Electronically, [facility], Partial fill upon patient request if [...] 10/16/22 10:25:00 EST, Route to Pharmacy Electronically, [id number], Partial fill upon patientrequest if the prescription [...] each, 0 Refills, Maintenance, 01/03/23 15:48:00 EST, [facility]/pharmacy #[id number], Partial fill upon patient [...] tablet, 0 Refills, Maintenance, 12/15/22 18:43:00 EST, [facility]/pharmacy #[id number], Partial fill upon patient request if the prescription is for a schedule II opioid drug., 169, cm, 11/28/22... Start Date: 12/15/22 Status: Ordered PARoxetine 40 mg oral tablet 40 mg, 1, tablet, By Mouth, Daily, Refills 0, Maintenance, 01/11/22 9:43:00 EST Start Date: 01/11/22 Status: Ordered Pen Elnora, 31 G x 5 mm BD Ultra [...] 9:03:00 EDT, Route to Pharmacy Electronically, [facility], Partial fill upon patient request if [...] Gm, 0 Refills, Maintenance, 12/15/22 18:28:00 EST, [facility]/pharmacy #[id number], 169, cm, 11/28/22 9:17:00 EST, [...] Active Morbid obesity Confirmed Active BHN/CCA/CP- Angle [id number] chcf active care coordination Confirmed Active Peripheral vascular disease - right SFA angioplasty/right great toe amputation 2021 Confirmed Active Severe obesity (BMI 35.0-39.9) with comorbidity Confirmed Active Umbilical hernia Confirmed Active 1per 2016 and 2019 [facility] notes Social History Social History Type Response Smoking Status Never (less than 100 in lifetime) entered on: 09/03/19 Sex 1per pt Patient Care team information Care Team Personnel Name: Allegra Aguayo MD Position: [facility] Resident Member Role: PCP Address: Address: [address] [place] [address] Name: Vera Locke RN Position: S RN [...] Name: MIKEY SEAY Address: home [address] [address] Name: MIKEY AYALA Address: home [address] [place] [address] Name: TANIA COPPOLA Address: home [address] [place] [address] Name: TANIA MUÑIZ Address: home [address] [place] [address]
--- OUTSIDE RECORDS SUMMARY | 2023-02-20 15:17 | XMS_ITS | Continuity of Care Document ---
Author Name Unknown Organization [facility] Address [address] [place] [address]- Care Team Providers Care Desktop Administrator Name Role Phone Olivier MOSHER, Allegra Primary Care Physician [phone] Encounter [facility] Date(s): 09/20/22 - 10/20/22 [facility] [address] [place] [id number] Allergies, Adverse Reactions, Alerts Substance Reaction Severity Status ibuprofen ABD PAIN Active morphine Vomiting and itchy Active traMADol Itchy, Hives Active Immunizations Given and Recorded Vaccine Date Status Refusal Reason SARS-CoV-2 mRNA ([id number]-[id number]) vax 02/22/22 Recorded SARS-CoV-2 (COVID-19) mRNA BNT-162b2 [...] Note: VIS GIVEN-DATED 05/30/11 2Result Comment: LOT [id number] EXP 04 MAY 2010 3Admin Note: VIS [...] 04/24/22 9:05:00 EDT, Route to Pharmacy Electronically, [facility], Partial fill upon patient request if the prescription is for a schedule II opio... Start Date: 04/24/22 Status: Ordered ammonium lactate 5% topical lotion 1 application, Topically, 2 times a day, # 240 Gm, 0 Refills, Maintenance, 05/01/22 12:34:00 EDT, Lotion, [facility]/pharmacy #[id number], Partial fill upon patient request if the prescription is for a schedule II opioid drug., 1 application Topically 2 times a da... Start Date: 05/01/22 Stop Date: 05/31/22 Status: Ordered aspirin 81 mg oral delayed release tablet 81 mg, By Mouth, Daily, # 30 tablet, Refills 5, Tot. Refills 5, Maintenance, 05/13/22 16:40:00 EDT,Route to Pharmacy Electronically, [facility], Partial fill upon patient request if the prescription is for a schedule II opioid drug.,... Start Date: 05/13/22 Stop Date: 11/09/22 Status: Ordered atorvastatin 40 mg oral tablet 1 tablet = 40 mg, By Mouth, Daily, # 90 tablet, 2 Refills, Maintenance, 04/24/22 9:41:00 EDT, Tablet, [facility], Partial fill upon patient request if [...] 16:13:00 EDT, Route to Pharmacy Electronically, [facility]/pharmacy #[id number], Partial fill upon patient request if the prescription is for a schedule II opi... Start Date: 07/26/22 Stop Date: 01/22/23 Status: Ordered Colace sodium 100 mg oral capsule 100 mg, 1, capsule, By Mouth, 2 times a day, PRN, # 60 capsule, Refills 0, Tot. Refills 0, Maintenance, for constipation, 03/16/22 14:30:00 EDT, Route to Pharmacy Electronically, [facility], Partial fill upon patient request if [...] 0 Refills, Maintenance, 09/21/22 11:57:00 EST, Tablet, [facility]/pharmacy #[id number], Partial fill upon patient request if the [...] 10/16/22 10:25:00 EST, Route to Pharmacy Electronically, [facility] #[id number], Partial fill upon patientrequest if the prescription [...] Refills, Soft Stop, 10/16/22 8:19:00 EST, Solution, [facility]/pharmacy #[id number], Partial fill upon patient [...] 09/20/22 11:19:00 EST, Route to Pharmacy Electronically, [facility]/pharmacy #[id number], Partial fillupon patient request if the prescription is for a s... Start Date: 09/20/22 Status: Ordered levoFLOXacin 250 mg oral tablet 1 tablet = 250 mg, By Mouth, Every 24 hours, # 14 tablet, 0 Refills, Maintenance, 09/20/22 11:28:00EST, Tablet, [facility]/pharmacy #[id number], Partial fill upon patient request if the prescription is for a schedule II opioid drug., 169, cm, 09/20/22 9:22:00 EST... Start Date: 09/20/22 Stop Date: 10/04/22 Status: Ordered lisinopril 10 mg oral tablet 10 mg, 1, tablet, By Mouth, Daily, # 90 tablet, Refills 1, Tot. Refills 1, Maintenance, 10/16/22 10:24:00 EST, Route to Pharmacy Electronically, [facility] #[id number], Partial fill upon patientrequest if the prescription is for a schedule II op... Start Date: 10/16/22 Stop Date: 04/14/23 Status: Ordered NovoLOG FlexPen 100 units/mL injectable solution = 20 units, Subcutaneous Injection, 3 times a day before meals, INJECT 20 UNITS INTO SKIN THREE TIMES DAILY BEFORE A MEAL, # 15 mL, 10 Refills, Maintenance, 08/01/22 16:09:00 EDT, [facility] 169, cm, 08/01/22 14:14:00 EDT, [...] Acute 10/24/22 15:48:00 EST, 10/10/22 15:48:00 EST, [facility]/pharmacy #[id number], Partial fill upon patient [...] 04/24/22 9:03:00 EDT, Route to Pharmacy Electronically, [facility], Partial fill upon patient request if the prescription is for a schedule II opio... Start Date: 04/24/22 Status: Ordered ProAir HFA 90 mcg/inh inhalation aerosol 1 puffs, Inhalation, Every 4 hours, PRN as needed for wheezing, # 18 Gm, 0 Refills, Maintenance, 10/03/22 6:38:00 EST, Aerosol, [facility] #[id number], Partial fill upon patient request if the [...] 2 Refills, Maintenance, 10/16/22 13:14:00 EST, Solution, [facility]/pharmacy #[id number], Partial fill upon patient request if the prescription is for a schedule II opioid drug., 169, cm, 10/09/22 8:39... Start Date: 10/16/22 Status: Ordered Ventolin HFA 108 mcg/inh inhalation aerosol with adapter 2 puffs, Inhalation, Every 6 hours, PRN Wheezing/Shortness of Breath, # 8 Gm, 1 Refills, Maintenance, 05/30/22 10:56:00 EDT, [facility], Partial fill upon patient request if [...] Obese class II Confirmed Active BHN/CCA/CP- Angle [id number] retirement active care coordination Confirmed Active Peripheral vascular disease - right SFA angioplasty/right great toe amputation 2021 Confirmed Active Umbilical hernia Confirmed Active 1per 2016 and 2018 [facility] notes Social History Social History Type Response Smoking Status Never (less than 100 in lifetime) entered on: 09/03/19 Sex 1per pt Patient Care team information Care Team Personnel Name: Allegra Aguayo MD Position: [facility] Resident Member Role: PCP Address: Address: [address] [place] [address] Name: Vera Locke RN Position: [facility] RN Member Role: Primary Care Nurse Name: Baljit Martínez RN Position: S RN Member Role: Primary Care Nurse Name: Sabine Guthrie RN Position: S RN Member Role: Primary Care Nurse Name: Aditi Hernandez RN Position: S RN Member Role: Primary Care Nurse Name: Piyush Moore RN Position: [facility] RN Member Role: Primary Care Nurse Name: Mis Vences RN Position: [facility] RN Member Role: Primary Care Nurse Name: Angie Lopez RN Position: S RN Member Role: Primary Care Nurse Name: Lizzie Estrada RN Position: S RN Member Role: Primary Care Nurse Care Team Related Persons Name: MIKEY SEAY Address: home [address] [address] Name: MIKEY AYALA Address: home [address] [place] [address] Name: TANIA COPPOLA Address: home [address] [place] [address] Name: TANIA MUÑIZ Address: home [address] [place] [id number]
--- OUTSIDE RECORDS SUMMARY | 2023-02-20 15:17 | XMS_ITS | Continuity of Care Document ---
Author Name Unknown Organization [facility] Address [address] [place] [address]- Care Team Providers Care Brokerage Clerk Name Role Phone Olivier MOSHER, Allegra Primary Care Physician [phone] Encounter [facility] Date(s): 12/29/22 - 01/28/23 [facility] [address] [place] [address]- Allergies, Adverse Reactions, Alerts Substance Reaction Severity Status ibuprofen ABD PAIN Active morphine Vomiting and itchy Active traMADol Itchy, Hives Active Immunizations Given and Recorded Vaccine Date Status Refusal Reason SARS-CoV-2 mRNA ([id number]) vax 02/22/22 Recorded SARS-CoV-2 (COVID-19) mRNA BNT-162b2 [...] Note: VIS GIVEN-DATED 05/30/11 2Result Comment: LOT [id number] EXP 04 MAY 2010 3Admin Note: VIS [...] 01/23/23 10:18:00 EDT, Route to Pharmacy Electronically, [facility]/pharmacy #[id number], Partial fill upon patient request [...] 10/16/22 10:25:00 EST, Route to Pharmacy Electronically, [facility] #[id number], Partial fill upon patientrequest if the prescription is for a schedule II op... Start Date: 10/16/22 Status: Ordered Lantus Solostar Pen 100 units/mL subcutaneous solution See Instructions, Subcutaneous Injection, 30 units sc bid dx E11.9 dose increased 01/23/23, # 15 mL,11 Refills, Maintenance, 01/23/23 9:43:00 EDT, [facility]/pharmacy #[id number], Partial fill upon patient request if the prescription is for a schedule II opioid d... Start Date: 01/23/23 Stop Date: 01/18/24 Status: Ordered lisinopril 10 mg oral tablet 10 mg, 1, tablet, By Mouth, Daily, # 90 tablet, Refills 2, Tot. Refills 2, Maintenance, 01/23/23 10:15:00 EDT, Route to Pharmacy Electronically, [facility]/pharmacy #[id number], Partial fill upon patient request [...] Moderate, # 30 tablet, 0 Refills, Maintenance, 01/26/23 11:36:00 EDT, [id number], Partial fill upon patient request if the prescription is for a schedule II opioid drug., 169, cm, 01/23/23... Start Date: 01/26/23 Status: Ordered PARoxetine 40 mg oral tablet 40 mg, 1, tablet, By Mouth, Daily, Refills 0, Maintenance, 01/11/22 9:43:00 EST Start Date: 01/11/22 Status: Ordered Pen Azalea, 31 G x 5 mm BD Ultra [...] Active Morbid obesity Confirmed Active BHN/CCA/CP- Angle [phone] mcfp active care coordination Confirmed Active Peripheral vascular [...] Team Personnel Name: Allegra Aguayo MD Position: [facility] Resident Member Role: PCP Address: Address: [address] [place] [address] Name: Baljit Martínez RN Position: S RN [...] Care Nurse Name: Angie Lopez RN Position: [facility] RN Member Role: Primary Care Nurse Name: Lizzie Estrada RN Position: [facility] Onco RN Member Role: Primary Care Nurse Care Team Related Persons Name: MIKEY SEAY Address: home [address] [address] Name: MIKEY AYALA Address: home [address] [place] [address] Name: TANIA COPPOLA Address: home [address] [place] [address] Name: TANIA MUÑIZ Address: home [address] [place] [address]
--- OUTSIDE RECORDS SUMMARY | 2023-02-20 15:17 | XMS_ITS | Continuity of Care Document ---
Author Name Unknown Organization [facility] Address [address] [place] [address]- Care Team Providers Care Heel Slicker Name Role Phone Josef MOSHER, Mamie Patterson Primary Care Physician [place] [facility] [id number] Date(s): 09/22/21 - 11/11/21 [facility] [address] [place] [address]- Attending Physician: Not on Staff, Attending MD [...] Note: VIS GIVEN-DATED 05/30/11 2Result Comment: LOT [id number] EXP 04 MAY 2010 3Admin Note: VIS [...] 07/20/21 9:24:00 EDT, Route to Pharmacy Electronically, [facility] #[id number], 170, cm, 07/20/21 8:57:00 EDT, Height Start Date: 07/20/21 Stop Date: 10/13/22 Status: Ordered atorvastatin 10 mg oral tablet 1 tablet = 10 mg, By Mouth, Daily, # 90 tablet, 1 Refills, Maintenance, 05/05/21 10:09:00 EDT, [facility] #[id number], 170, cm, 12/21/20 9:18:00 EST, Height, 100.5, [...] 07/20/21 9:33:00 EDT, Route to Pharmacy Electronically, [facility] #[id number], Partial fill upon patient request if the [...] tablet, 11 Refills, Maintenance, 10/24/21 9:05:00 EST, [facility] 170, cm, 07/28/21 10:50:00 EDT, Height Start Date: 10/24/21 Status: Ordered Januvia 50 mg oral tablet 1 tablet = 50 mg, By Mouth, Daily, dose decreased, # 30 tablet, 11 Refills, Maintenance, 09/20/21 13:40:00 EST, Tablet, [facility] #[id number], Partial fill upon patient request if the prescription is for a schedule II opioid drug., 170, cm, 07/07... Start Date: 09/20/21 Status: Ordered Lantus Solostar Pen 100 units/mL subcutaneous solution See Instructions, INJECT 45 UNITS UNDER THE SKIN TWICE DAILY., # 24 mL, 0 Refills, 10/21/21 7:36:00EST, [facility] #[id number], dose increase since 07/26, 170, cm, 07/28/21 10:50:00 EDT, Height Start Date: 10/21/21 Status: Ordered lisinopril 40 mg oral tablet 1 tablet = 40 mg, By Mouth, Daily, # 90 tablet, 4 Refills, Maintenance, 07/20/21 9:25:00 EDT, Tablet, [facility] #[id number], 170, cm, 07/20/21 8:57:00 EDT, Height Start Date: 07/20/21 Stop Date: 10/13/22 Status: Ordered Melatonin 5 mg oral tablet 0 Refills, Maintenance, 01/29/19 10:09:09 EDT Start Date: 01/29/19 Status: Ordered NovoLOG 100 units/mL subcutaneous solution See Instructions, 28 units Subcutaneous Infusion 3 times a day before meals dxE11.9, # 48 mL, 11 Refills, Maintenance, 08/26/21 13:13:00 EDT, [facility], Partial fill upon patient request if the prescription is for a schedule II opioid... Start Date: 08/26/21 Status: Ordered OXcarbazepine 300 mg oral tablet TK 1 T PO BID Start Date: 01/29/19 Status: Ordered PARoxetine 40 mg oral tablet TK 1 T PO HS Start Date: 01/29/19 Status: Ordered Pen Morrow, 31 G x 5 mm BD Ultra Fine III See Instructions, # 150 each, Refills 11, Tot. Refills 11, Maintenance, use to inject insulin up tofive times daily dx e11.9, 10/21/20 15:55:00 EST, Supply, 170, cm, 05/20/20 14:48:00 EDT, Height, 100.5, kg, 05/30/19 9:39:00 EDT, Dry Weight Start Date: 10/21/20 Status: Ordered Pen Morrow, 31 G x 5 mm BD Ultra [...] FOR 14 DAYS, # 15 Gm, 0 Refills,[facility] #[id number], 14, APPLY TOPICALLY TO THE AFFECTED AREA TWICE DAILY FOR 14 DAYS, 170,cm, 07/28/21 10:50:00 EDT, Height Start Date: 11/02/21 Status: Ordered Trulicity Pen 1.5 mg/0.5 mL subcutaneous solution See Instructions, ADMINISTER 1.5 MG UNDER THE SKIN EVERY WEEK, # 2 mL, 0 Refills, [facility] #[id number], 170, cm, 07/28/21 10:50:00 EDT, Height Start Date: 09/22/21 Status: Ordered Ventolin HFA 108 mcg/inh inhalation aerosol with adapter 1 puffs, Inhalation, 4 times a day, PRN for wheezing, # 8 Gm, 2 Refills, Maintenance, 09/22/21 11:41:00 EST, Aerosol, [facility] #[id number], Partial fill upon patient request if the [...] Microalbuminuria(Confirmed) Active Morbid obesity(Confirmed) Active BHN/CCA/AUDRA-Mignon Peters [phone]/Health alf active care coordination(Confirmed) Active Peripheral vascular disease(Confirmed) Active Umbilical hernia(Confirmed) Active 1per 2016 and 2019 [facility] notes Social History Social History Type Response Smoking Status Never (less than 100 in lifetime) entered on: 09/03/19 Sex Female 1per pt
--- OUTSIDE RECORDS SUMMARY | 2023-02-20 15:17 | XMS_ITS | Continuity of Care Document ---
Author Name Unknown Organization [facility] Address [address] [place] [address]- Care Team Providers Care Ocean Fishing Guide Name Role Phone Josef MOSHER, Mamie Patterson Primary Care Physician [place] [facility] [place] 08[place]/21 [facility] [address] [place], [place] [address] Allergies, Adverse Reactions, Alerts [...] Note: VIS GIVEN-DATED 05/30/11 2Result Comment: LOT [id number] EXP 04 MAY 2010 3Admin Note: VIS [...] 11 Refills, Maintenance, 07/18/21 15:05:00 EDT, Powder, [facility], Patient Lost her inhailer, Will [...] 07/20/21 9:24:00 EDT, [facility], [id number], 170, cm, 07/20/21 8:57:00 EDT, Height Start Date: 07/20/21 Stop Date: 10/13/22 Status: Ordered atorvastatin 10 mg oral tablet 1 tablet = 10 mg, By Mouth, Daily, # 90 tablet, 1 Refills, Maintenance, 05/05/21 10:09:00 EDT, [facility] #[id number], 170, cm, 12/21/20 9:18:00 EST, Height, 100.5, [...] 07/20/21 9:33:00 EDT, Route to Pharmacy Electronically, [facility] #[id number], Partial fill upon patient request if the prescription is for a schedule II opi... Start Date: 07/20/21 Stop Date: 10/18/21 Status: Ordered insulin glargine 100 units/mL subcutaneous solution See Instructions, Subcutaneous Infusion Daily 45 units sc twice daily dx E11.9, # 12 mL, 11 Refills, Maintenance, 07/28/21 11:33:00 EDT[facility] fill upon patient request [...] tablet, 11 Refills, Maintenance, 06/21/21 14:39:00 EDT, [facility] #[id number], 170, cm, 05/20/21 15:42:00 EDT, Height Start Date: 06/21/21 Status: Ordered lisinopril 40 mg oral tablet 1 tablet = 40 mg, By Mouth, Daily, # 90 tablet, 4 Refills, Maintenance, 07/20/21 9:25:00 EDT, Tablet, [facility] #[id number], 170, cm, 07/20/21 8:57:00 EDT, Height Start Date: 07/20/21 Stop Date: 10/13/22 Status: Ordered Melatonin 5 mg oral tablet 0 Refills, Maintenance, 01/29/19 10:09:09 EDT Start Date: 01/29/19 Status: Ordered NovoLOG FlexPen 100 units/mL injectable solution See Instructions, INJECT 20 UNITS INTO SKIN THREE TIMES DAILY BEFORE A MEAL, # 48 mL, 11 Refills, Maintenance, [facility] #[id number], 170, cm, 05/20/21 15:42:00 EDT, Height Start Date: 06/22/21 Status: Ordered OXcarbazepine 300 mg oral tablet TK 1 T PO BID Start Date: 01/29/19 Status: Ordered PARoxetine 40 mg oral tablet TK 1 T PO HS Start Date: 01/29/19 Status: Ordered Pen [place], 31 G x 5 mm BD Ultra Fine III See Instructions, # 150 each, Refills 11, Tot. Refills 11, Maintenance, use to inject insulin up tofive times daily dx e11.9, 10/21/20 15:55:00 EST, Supply, 170, cm, 05/20/20 14:48:00 EDT, Height, 100.5, kg, 05/30/19 9:39:00 EDT, Dry Weight Start Date: 10/21/20 Status: Ordered Pen [place], 31 G x 5 mm BD Ultra [...] 11 Refills, Maintenance, 07/18/21 15:06:00 EDT, Aerosol, [facility] Partial fill upon patient request if theprescription [...] 11 Refills, Maintenance, 07/28/21 10:54:00 EDT, Solution, [facility]., Partial fill upon patient request if [...] Microalbuminuria(Confirmed) Active Morbid obesity(Confirmed) Active BHN/CCA/AUDRA-Mignon Peters [phone]/Health usp active care coordination(Confirmed) Active Peripheral vascular disease(Confirmed) Active Umbilical hernia(Confirmed) Active 1per 2016 and 2019 [facility] notes Social History Social History Type Response Smoking Status Never (less than 100 in lifetime) entered on: 09/03/19 Sex Female 1per pt
--- OUTSIDE RECORDS SUMMARY | 2023-02-20 15:17 | XMS_ITS | Continuity of Care Document ---
Author Name Unknown Organization [facility] Address [address] [place] [address]- Care Team Providers Care Charge Nurse Name Role Phone Josef MOSHER, Mamie Patterson Primary Care Physician [place] [facility] [place] [id number] Date(s): 05/01/22 - 05/08/22 [facility] [address] [place], [place] [address] Attending Physician: Victor Hugo MOSHER, Aditi Kilgore Admitting Physician: Victor Hugo MOSHER, Aditi Kilgore Allergies, Adverse Reactions, Alerts Substance Reaction Severity Status ibuprofen ABD PAIN Active morphine Vomiting and itchy Active traMADol Itchy, Hives Active Immunizations Given and Recorded Vaccine Date Status Refusal Reason SARS-CoV-2 mRNA ([id number]) vax 02/22/22 Recorded SARS-CoV-2 (COVID-19) mRNA BNT-162b2 [...] Note: VIS GIVEN-DATED 05/30/11 2Result Comment: LOT [id number] EXP 04 MAY 2010 3Admin Note: VIS [...] 04/24/22 9:05:00 EDT, Route to Pharmacy Electronically, [facility], Partial fill upon patient request if the prescription is for a schedule II opio... Start Date: 04/24/22 Status: Ordered ammonium lactate 5% topical lotion 1 application, Topically, 2 times a day, # 240 Gm, 0 Refills, Maintenance, 05/01/22 12:34:00 EDT, Lotion, [facility]/pharmacy #[id number], [...] Maintenance, 05/13/22 16:40:00 EDT,Route to Pharmacy Electronically, [facility], Partial fill upon patient request if the prescription is for a schedule II opioid drug.,... Start Date: 05/13/22 Stop Date: 11/09/22 Status: Ordered aspirin 81 mg oral delayed release tablet 81 mg, By Mouth, Daily, for 30 days, # 30 tablet, Refills 0, Tot. Refills 0, Hard Stop 05/13/22 16:40:00 EDT, 04/13/22 16:40:00 EDT, Route to Pharmacy Electronically, [facility], Partial fill upon patient request if the prescription is f... Start Date: 04/13/22 Stop Date: 05/13/22 Status: Ordered atorvastatin 40 mg oral tablet 1 tablet = 40 mg, By Mouth, Daily, # 90 tablet, 2 Refills, Maintenance, 04/24/22 9:41:00 EDT, Tablet, [facility], Partial fill upon patient request if [...] 05/13/22 16:40:00 EDT, Route to Pharmacy Electronically, [facility], Partial fill upon patient request if the prescription is for a schedul... Start Date: 05/13/22 Stop Date: 11/09/22 Status: Ordered carvedilol 25 mg oral tablet 25 mg, 1, tablet, By Mouth, 2 times a day, for 30 days, # 60 tablet, Refills 0, Tot. Refills 0, Hard Stop 05/13/22 16:40:00 EDT, 04/13/22 16:40:00 EDT, Route to Pharmacy Electronically, [facility], Partial fill upon patient request if th... Start Date: 04/13/22 Stop Date: 05/13/22 Status: Ordered Colace sodium 100 mg oral capsule 100 mg, 1, capsule, By Mouth, 2 times a day, PRN, # 60 capsule, Refills 0, Tot. Refills 0, Maintenance, for constipation, 05/12/22 14:30:00 EDT, Route to Pharmacy Electronically, [facility] Partial fill upon patient request [...] 05/11/22 8:04:00 EDT, 04/27/22 8:04:00 EDT, Capsule, [facility], Partial fill upon [...] 04/24/22 9:02:00 EDT, Route to Pharmacy Electronically, [facility], Partial fill upon patient request if the prescription is for a schedule II opio... Start Date: 04/24/22 Status: Ordered insulin aspart 100 units/mL subcutaneous solution = 20 units, Subcutaneous Injection, 3 times a day before meals, # 10 mL, 11 Refills, Maintenance, 03/10/22 9:06:00 EDT, [facility][id number], Partial fill upon patient request if theprescription [...] tablet, 11 Refills, Maintenance, 03/09/22 14:23:00 EDT, [facility], resent - not recvd, 169, cm, 03/09/22 13:46:00 EDT, Height, 104.9, kg, 03/04/22 2:58:00 EDT, Dry Weight Start Date: 03/09/22 Status: Ordered Lantus 100 u/ml subcutaneous solution = 30 units, Subcutaneous Injection, 2 times a day, # 10 mL, 5 Refills, Maintenance, 03/10/22 9:05:00 EDT, [facility] #[id number], Partial fill upon patient request if the prescription is for a schedule II opioid drug., 169, cm, 03/09/22... Start Date: 03/10/22 Status: Ordered lisinopril 10 mg oral tablet 10 mg, 1, tablet, By Mouth, Daily, # 30 tablet, Refills 4, Tot. Refills 4, Maintenance, 04/24/22 9:41:00 EDT, Route to Pharmacy Electronically, [facility], Partial fill upon patient request if [...] 04/24/22 13:25:00 EDT, [facility] [...] 05/24/22 10:39:00 EDT, Route to Pharmacy Electronically, [facility]/pharmacy #[id number], Partial fill upon patient... Start [...] 04/24/22 9:03:00 EDT, Route to Pharmacy Electronically, [facility], Partial fill upon patient request if [...] 0 Refills, Maintenance, 04/18/22 9:51:00 EDT, Aerosol, [facility], Partial fill upon patient request if [...] 0 Refills, Maintenance, 03/09/22 14:21:00 EDT, Gel, [facility], Partial fill upon patient request if the p... Start Date: 03/09/22 Status: Ordered traZODone 300 mg oral tablet 1 tablet = 300 mg, By Mouth, Daily at bedtime Start Date: 03/03/22 Status: Ordered Trulicity Pen 3 mg/0.5 mL subcutaneous solution See Instructions, ADMINISTER 0.5 ML UNDER THE SKIN EVERY WEEK. ROTATE INJECTION SITES, # 2 mL, 11 Refills, 03/09/22 14:22:00 EDT, [facility]., 169, cm, 03/09/22 13:46:00 EDT, Height, 104.9, kg, 03/04/22 2:58:00 EDT, Dry Weight Start Date: 03/09/22 Status: Ordered Tylenol 8 Hour 650 mg oral tablet, extended release 2 tablet = 1,300 mg, By Mouth, Every 8 hours, PRN as needed for pain, # 24 tablet, 0 Refills, Maintenance, 04/24/22 9:43:00 EDT, ER Tablet, [facility], Partial fill upon patient request if [...] Active Obese class I(Confirmed) Active BHN/CCA/AUDRA-Mignon Peters [phone]/Health [facility] active care coordination(Confirmed) Active Peripheral vascular disease(Confirmed) Active Uncontrolled type 1 diabetes mellitus with hyperglycemia, with long-term current use of insulin(Confirmed) Active Umbilical hernia(Confirmed) Active 1per 2016 and 2019 [facility] notes Vital Signs Most recent to oldest [Reference Range]: 1 Height 169 cm (05/01/22 10:56 AM) Weight 99.5 kg (05/01/22 10:56 AM) Oxygen Saturation [94-100 %] 97 % (05/01/22 10:56 AM) Pulse Rate [55-90 bpm] 86 bpm (05/01/22 10:56 AM) Body Mass Index [18.5-24.99] 34.84 *>HHI* (05/01/22 10:56 AM) Blood Pressure [90-138/55-84 mm Hg] 136/ 80mm Hg (05/01/22 10:56 AM) Mode of Delivery (Oxygen) Room air (05/01/22 10:56 AM) Blood pressure sites Arm, left (05/01/22 10:56 AM) Weight Obtained Via Patient/family state d (05/01/22 10:56 AM) Social History Social History Type Response Smoking Status Never (less than 100 in lifetime) entered on: 09/03/19 Sex 1per pt
--- OUTSIDE RECORDS SUMMARY | 2023-02-20 15:17 | XMS_ITS | Continuity of Care Document ---
Author Name Unknown Organization [facility] ter Address [address] [place] [id number]- Care Team Providers Care Leather Stamper Name Role Phone Josef MOSHER, Mamie Patterson Primary Care Physician [place] [facility] [place]/06/[place] - 02/07/[address] [address]- Discharge Disposition: A-D/C Home Attending Physician: Monie Burch DO Admitting Physician: Monie Burch DO Referring Physician: Not on Staff, Referring MD [...] Note: VIS GIVEN-DATED 05/30/11 2Result Comment: LOT [id number] EXP 04 MAY 2010 3Admin Note: VIS [...] 12/29/21 10:02:00 EST, Route to Pharmacy Electronically, [facility] #[id number], 170, cm, 07/28/21 10:50:00 EDT, Height Start Date: 12/29/21 Stop Date: 03/24/23 Status: Ordered atorvastatin 10 mg oral tablet 1 tablet, By Mouth, Daily, # 90 tablet, 1 Refills, Maintenance, 12/13/21 19:21:00 EST, [facility] #[id number], 170, cm, 07/28/21 10:50:00 EDT, Height Start [...] 12/29/21 10:02:00 EST, Route to Pharmacy Electronically, [facility] #[id number], Partial fill upon patientrequest if the prescription [...] tablet, 11 Refills, Maintenance, 12/29/21 10:02:00 EST, [facility] #[id number], resent - not recvd, 170, cm, 07/28/21 10:50:00 EDT, Height Start Date: 12/29/21 Status: Ordered Lantus 100 u/ml subcutaneous solution = 45 units, Subcutaneous Infusion, 2 times a day, changed from PEN, pt requesting vials, # 12 mL, 11 Refills, Maintenance, 01/11/22 9:45:00 EST, [facility] #[id number], Partial fill upon patientrequest if the prescription is for a schedule II op... Start Date: 01/11/22 Status: Ordered lidocaine 5% topical ointment 1 application, Topically, 3 times a day, wash hands thoroughly after application, prn pain, # 50 Gm, 0 Refills, Maintenance, 01/11/22 9:49:00 EST, Ointment, [facility] #[id number], Partial fill upon patient request if the prescription is for a sc... Start Date: 01/11/22 Status: Ordered lisinopril 40 mg oral tablet 1 tablet = 40 mg, By Mouth, Daily, # 90 tablet, 4 Refills, Maintenance, 07/20/21 9:25:00 EDT, Tablet, [facility] #[id number], 170, cm, 07/20/21 8:57:00 EDT, Height Start Date: 07/20/21 Stop Date: 10/13/22 Status: Ordered NovoLOG 100 units/mL injectable solution See Instructions, ADMINISTER 20 UNITS UNDER THE SKIN THREE TIMES DAILY BEFORE MEALS 90 DAY SUPPLY REQUESTED, # 30 mL, 2 Refills, [facility] #[id number], 170, cm, 07/28/21 10:50:00 EDT, Height Start [...] 2 mL, 11 Refills, 02/06/22 12:42:00 EDT, [facility] #[id number], 170, cm, 01/11/22 9:39:00 EST, Height Start Date: 02/06/22 Status: Ordered Ventolin HFA 108 mcg/inh inhalation aerosol with adapter 1 puffs, Inhalation, 4 times a day, PRN NEEDED FOR WHEEZING, # 18 Gm, 0 Refills, [facility] #[id number], 170, cm, 01/11/22 9:39:00 EST, Height Start [...] Obese class I(Confirmed) Active BHN/CCA/Luis Felipe Peters [phone]/Health [facility] active care coordination(Confirmed) Active Peripheral vascular disease(Confirmed) Active Umbilical hernia(Confirmed) Active 1per 2016 and 2019 [facility] notes Vital Signs Most recent to oldest [Reference Range]: 1 Oxygen Saturation [94-100 %] 98 % (02/06/22 10:38 PM) Pulse Rate [55-90 bpm] 97 bpm *H* (02/06/22 10:38 PM) Blood Pressure [90-138/55-84 mm Hg] 174/ 84mm Hg *H* (02/06/22 10:38 PM) Respiratory Rate [16-30 br/min] 18 br/mi n (02/06/22 10:38 PM) Temperature [96.8-100.4 DegF] 98.5 DegF (02/06/22 10:38 PM) Mode of Delivery (Oxygen) Room air (02/06/22 10:38 PM) Blood pressure sites Arm, right (02/06/22 10:38 PM) Temperature Route Oral (02/06/22 10:38 PM) Social History Social History Type Response Smoking Status Never (less than 100 in lifetime) entered on: 09/03/19 Sex Female 1per pt
[2023-02-20 15:18] LABS: MANUAL DIFF FLAG NO
--- OUTSIDE RECORDS SUMMARY | 2023-02-20 15:18 | XMS_ITS | Continuity of Care Document ---
Author Name Unknown Organization [facility] Address [address] [place] [address]- Care Team Providers Care Buttonhole Marker Name Role Phone Sangeetha MOSHER, Marcia Koroma Primary Care Physician [phone] [facility]counter [facility] Date(s): 04/06/21 - 05/06/21 [facility] [address] [place], [place] [address] Allergies, Adverse Reactions, Alerts Substance [...] Note: VIS GIVEN-DATED 05/30/11 2Result Comment: LOT [id number] EXP 04 MAY 2010 3Admin Note: VIS given Medications albuterol 90 mcg/inh inhalation powder 2 puffs, Inhalation, Every 6 hours, PRN as needed, # 1 each, 11 Refills, Maintenance, 12/08/20 11:02:00 EST, Powder, [facility] #[id number], 2 puffs Inhalation Every 6 hours,PRN:as needed, [...] 07/30/20 18:34:00 EDT, Route to Pharmacy Electronically, [facility] #[id number], 170, cm, 05/20/20 14:48:00 EDT, Height, 100.5, kg, 05/30/19 9:39:00 EDT, Dry... Start Date: 07/30/20 Stop Date: 07/25/21 Status: Ordered aspirin 81 mg oral delayed release tablet 81 mg, 1, tablet, By Mouth, Daily, # 30 tablet, Refills 11, Tot. Refills 11, Maintenance, 05/20/20 14:45:00 EDT, Route to Pharmacy Electronically, [facility] #[id number], 170, cm, 05/20/20 14:08:00 EDT, Height, 100.5, kg, 05/30/19 9:39:00 EDT, . Start Date: 05/20/20 Status: Ordered atorvastatin 10 mg oral tablet 1 tablet = 10 mg, By Mouth, Daily, # 90 tablet, 1 Refills, Maintenance, 05/05/21 10:09:00 EDT, [facility] #[id number], 170, cm, 12/21/20 9:18:00 EST, Height, 100.5, [...] tablet, 0 Refills, Maintenance, 03/28/21 10:39:00 EDT, [facility] #[id number], 170, cm, 12/21/20 9:18:00 EST, Height, 100.5, kg, 05/30/19 9:39:00 EDT, Dry Weight Start Date: 03/28/21 Status: Ordered Lantus Solostar Pen 100 units/mL subcutaneous solution See Instructions, Inject 40 units under the skin twice daily., # 24 mL, 3 Refills, Maintenance, 01/29/21 9:00:00 EDT, [facility] #[id number], 170, cm, 12/21/20 9:18:00 EST, Height, 100.5, kg, 05/30/19 9:39:00 EDT, Dry Weight Start Date: 01/29/21 Status: Ordered lisinopril 40 mg oral tablet 1 tablet = 40 mg, By Mouth, Daily, # 90 tablet, 4 Refills, Maintenance, 02/03/20 12:39:00 EDT, Tablet, [facility] #39790, 170, cm, 12/16/19 10:11:00 EST, Height, 100.5, kg, 05/30/19 9:39:00EDT, Dry Weight Start Date: 02/03/20 Stop Date: 04/28/21 Status: Ordered Melatonin 5 mg oral tablet 0 Refills, Maintenance, 01/29/19 10:09:09 EDT Start Date: 01/29/19 Status: Ordered NovoLOG FlexPen 100 units/mL injectable solution See Instructions, INJECT 20 UNITS SUBCUTANEOULSY THREE TIMES DAILY BEFORE MEALS., # 48 mL, 0 Refills, 03/30/21 11:25:00 EDT, [facility] #[id number], 170, cm, 12/21/20 9:18:00 EST, Height, 100.5,kg, 05/30/19 9:39:00 EDT, Dry Weight Start Date: 03/30/21 Status: Ordered OXcarbazepine 300 mg oral tablet TK 1 T PO BID Start Date: 01/29/19 Status: Ordered PARoxetine 40 mg oral tablet TK 1 T PO HS Start Date: 01/29/19 Status: Ordered Pen [place]agon[place], 31 G x 5 mm BD Ultra Fine III See Instructions, # 150 each, Refills 11, Tot. Refills 11, Maintenance, use to inject insulin up tofive times daily dx e11.9, 10/21/20 15:55:00 EST, Supply, 170, cm, 05/20/20 14:48:00 EDT, Height, 100.5, kg, 05/30/19 9:39:00 EDT, Dry Weight Start Date: 10/21/20 Status: Ordered Pen [place], 31 G x 5 mm BD Ultra [...] 5 Refills, Maintenance, 02/01/21 14:49:00 EDT, Solution, [facility] #[id number], to replace 0.75 mg dose, 170, cm, [...] Microalbuminuria(Confirmed) Active Morbid obesity(Confirmed) Active BHN/CCA/AUDRA-Mignon Peters [phone]/Health nursing home active care coordination(Confirmed) Active Peripheral vascular disease(Confirmed) Active Umbilical hernia(Confirmed) Active 1per 2016 and 2018 [facility] notes Social History Social History Type Response Smoking Status Never (less than 100 in lifetime) entered on: 09/03/19 Sex Female 1per pt
--- OUTSIDE RECORDS SUMMARY | 2023-02-20 15:18 | XMS_ITS | Continuity of Care Document ---
Author Name Unknown Organization [facility] Address [address] [place] [address]- Care Team Providers Care Psychiatrist Name Role Phone Sangeetha MOSHER, Marcia Koroma Primary Care Physician [phone] [facility]counter [facility] Date(s): 12/16/20 - 01/15/21 [facility] [address] [place] [address] Allergies, Adverse Reactions, Alerts Substance [...] Note: VIS GIVEN-DATED 05/30/11 2Result Comment: LOT [id number] EXP 04 MAY 2010 3Admin Note: VIS given Medications albuterol 90 mcg/inh inhalation powder 2 puffs, Inhalation, Every 6 hours, PRN as needed, # 1 each, 11 Refills, Maintenance, 12/08/20 11:02:00 EST, Powder, [facility] #[id number], 2 puffs Inhalation Every 6 hours,PRN:as needed, [...] 07/30/20 18:34:00 EDT, Route to Pharmacy Electronically, [facility] #[id number], 170, cm, 05/20/20 14:48:00 EDT, Height, 100.5, kg, 05/30/19 9:39:00 EDT, Dry... Start Date: 07/30/20 Stop Date: 07/25/21 Status: Ordered aspirin 81 mg oral delayed release tablet 81 mg, 1, tablet, By Mouth, Daily, # 30 tablet, Refills 11, Tot. Refills 11, Maintenance, 05/20/20 14:45:00 EDT, Route to Pharmacy Electronically, [facility] #[id number], 170, cm, 05/20/20 14:08:00 EDT, Height, 100.5, kg, 05/30/19 9:39:00 EDT, Start Date: 05/20/20 Status: Ordered atorvastatin 10 mg oral tablet 1 tablet = 10 mg, By Mouth, Daily, # 30 tablet, 11 Refills, Maintenance, 05/20/20 14:46:00 EDT, [facility] #[id number], 170, cm, 05/20/20 14:08:00 EDT, Height, 100.5, [...] 0 Refills, Maintenance, 09/02/20 14:20:00 EDT, Ointment, [facility] #[id number], 1 application Topically 2 times a day, [...] 09/10/20 18:41:00 EST, [facility] Start Date: 09/10/20 Stop Date: 03/09/21 Status: Ordered Insulin Syringe, BD Ultra-Fine 0.5 cc 31 G x 8 mm (516in) See Instructions, # 150 each, Refills 11, Tot. Refills 11, Maintenance, use as directed for Type 2 Diabetes Mellitus to admisiter insulin four times a day. Dx; E11.9, 05/15/21 15:10:00 EDT, pt was transferred to [facility], all meds left [facility]... Start Date: 05/15/21 Stop Date: 05/10/22 Status: Ordered Lantus 100 u/ml subcutaneous solution = 40 units, Subcutaneous Infusion, 2 times a day, # 15 mL, 3 Refills, Maintenance, 12/16/20 14:02:00 EST, [facility] #[id number], 170, cm, 05/20/20 14:48:00 EDT, Height, 100.5, kg, 05/30/19 9:39:00 EDT, Dry Weight Start Date: 12/16/20 Stop Date: 04/15/21 Status: Ordered lisinopril 40 mg oral tablet 1 tablet = 40 mg, By Mouth, Daily, # 90 tablet, 4 Refills, Maintenance, 02/03/20 12:39:00 EDT, Tablet, [facility] #[id number], 170, cm, 12/16/19 10:11:00 EST, Height, 100.5, [...] mL, 1 Refills, Maintenance, 12/17/20 13:06:00 EST, [facility] #[id number], 170, cm, 05/20/2014:48:00 EDT, Height, 100.5, kg, 05/30/19 9:39:00 E... Start Date: 12/17/20 Status: Ordered OXcarbazepine 300 mg oral tablet TK 1 T PO BID Start Date: 01/29/19 Status: Ordered PARoxetine 40 mg oral tablet TK 1 T PO HS Start Date: 01/29/19 Status: Ordered Pen [place], 31 G x 5 mm BD Ultra [...] 1 Refills, Maintenance, 12/21/20 10:40:00 EST, Tablet, [facility] #[id number], Partial fill upon patient request if the [...] 0 Refills, Maintenance, 05/20/20 15:09:00 EDT, Ointment, [facility] #76003, 1 application Topically 2 times a day,x14 days,Instr:apply a thin film; to aff... Start Date: 05/20/20 Stop Date: 06/03/20 Status: Ordered Trulicity Pen 0.75 mg/0.5 mL subcutaneous solution 0.5 mL = 0.75 mg, Subcutaneous Injection, Every week, rotate injection sites, # 2 mL, 2 Refills, Maintenance, 01/03/21 13:20:00 EST, Solution, [facility] #[id number], Partial fill upon patient request if the prescription is for a schedule II opio... Start Date: 01/03/21 Status: Ordered Trulicity Pen 1.5 mg/0.5 mL subcutaneous solution 0.5 mL = 1.5 mg, Subcutaneous Injection, Every week, # 2.5 mL, 5 Refills, Maintenance, 01/25/21 8:56:00 EDT, [facility] #[id number], 170, cm, 05/20/20 14:48:00 EDT, Height, 100.5, [...] Microalbuminuria(Confirmed) Active Morbid obesity(Confirmed) Active BHN/KELVIN/AUDRA-Mignon Peters [phone]/Health [facility]way active care coordination(Confirmed) Active Peripheral vascular disease(Confirmed) Active Umbilical hernia(Confirmed) Active 1per 2017 and 2018 [facility] notes Social History Social History Type Response Smoking Status Never (less than 100 in lifetime) entered on: 09/03/19 Sex Female 1per pt
--- OUTSIDE RECORDS SUMMARY | 2023-02-20 15:18 | XMS_ITS | Continuity of Care Document ---
Author Name Unknown Organization [facility] Address [address] [place] [address]- Care Team Providers Care Loader Engineer Name Role Phone Olivier MOSHER, Allegra Primary Care Physician Encounter [facility] Date(s): 04/28/22 - 05/28/22 [facility] [address] [place], [place] [address] Allergies, Adverse Reactions, Alerts Substance Reaction Severity Status ibuprofen ABD PAIN Active morphine Vomiting and itchy Active traMADol Itchy, Hives Active Immunizations Given and Recorded Vaccine Date Status Refusal Reason SARS-CoV-2 mRNA ([id number]) vax 02/22/22 Recorded SARS-CoV-2 (COVID-19) mRNA BNT-162b2 [...] Note: VIS GIVEN-DATED 05/30/11 2Result Comment: LOT [id number] EXP 04 MAY 2010 3Admin Note: VIS [...] 0 Refills, Maintenance, 05/01/22 12:34:00 EDT, Lotion, [facility]acy #[id number], Partial fill upon patient request if [...] 11 Refills, Maintenance, 03/10/22 9:06:00 EDT, Solution, [facility] #[id number], Partial fill upon patient request if theprescription [...] tablet, 1 Refills, Maintenance, 05/15/22 16:38:00 EDT, [facility]/pharmacy#[id number], resent - not recvd, 169, cm, 05/01/22 10:56:00 EDT, Height, 104.9, kg, 03/04/22 2:58:00 EDT,Dry Weight Start Date: 05/15/22 Status: Ordered Lantus 100 u/ml subcutaneous solution = 30 units, Subcutaneous Injection, 2 times a day, # 10 mL, 5 Refills, Maintenance, 03/10/22 9:05:00 EDT, Solution, [facility] #[id number], Partial fill upon patient request if the [...] 05/24/22 10:39:00 EDT, Route to Pharmacy Electronically, [facility]/pharmacy #[id number], Partial fill upon patient... Start Date: [...] 2 mL, 11 Refills, 03/09/22 14:22:00 EDT, [facility] 169, cm, 03/09/22 13:46:00 EDT, Height, 104.9, [...] Obese class I(Confirmed) Active BHN/CCA/Luis Felipe Peters [phone]/Health [facility] active care coordination(Confirmed) Active Peripheral vascular [...]
--- OUTSIDE RECORDS SUMMARY | 2023-02-20 15:18 | XMS_ITS | Continuity of Care Document ---
Author Name Unknown Organization [facility] Address [address] [place] [address]- Care Team Providers Care Circuit Court Clerk Name Role Phone Sangeetha MOSHER, Marcia Koroma Primary Care Physician [facility] Date(s): 08/03/20 - 09/02/20 [facility] [address] [place] [address]- [facility] Allergies, Adverse Reactions, Alerts Substance Reaction Severity [...] Note: VIS GIVEN-DATED 05/30/11 2Result Comment: LOT [id number] EXP 04 MAY 2010 3Admin Note: VIS [...] 07/30/20 18:34:00 EDT, Route to Pharmacy Electronically, [facility] #[id number], 170, cm, 05/20/20 14:48:00 EDT, Height, 100.5, kg, 05/30/19 9:39:00 EDT, Dry... Start Date: 07/30/20 Stop Date: 07/25/21 Status: Ordered aspirin 81 mg oral delayed release tablet 81 mg, 1, tablet, By Mouth, Daily, # 30 tablet, Refills 11, Tot. Refills 11, Maintenance, 05/20/20 14:45:00 EDT, Route to Pharmacy Electronically, [facility] #[id number], 170, cm, 05/20/20 14:08:00 EDT, Height, 100.5, kg, 05/30/19 9:39:00 EDT, . Start Date: 05/20/20 Status: Ordered atorvastatin 10 mg oral tablet 1 tablet = 10 mg, By Mouth, Daily, # 30 tablet, 11 Refills, Maintenance, 05/20/20 14:46:00 EDT, [facility] #[id number], 170, cm, 05/20/20 14:08:00 EDT, Height, 100.5, [...] Dry Weight Start Date: 12/11/19 Status: Ordered gabapentin 100 mg oral capsule 100 mg, 1, capsule, By Mouth, 3 times a day, # 90 capsule, Refills 0, Tot. Refills 0, Maintenance, 03/06/19 17:12:53 EDT, Route to Pharmacy Electronically, [id number], [facility] [id number] Start Date: 03/06/19 Status: Ordered hydrocortisone 0.5% topical ointment 1 application, Topically, 2 times a day, # 28 Gm, 0 Refills, Maintenance, 09/02/20 14:20:00 EDT, Ointment, [facility] #[id number], 1 application Topically 2 times a day, [...] 05/15/21 15:10:00 EDT, pt was transferred to [facility], all meds left beh... Start Date: 05/15/21 [...] E11.9,05/20/20 15:10:00 EDT, pt was transferred to [facility] Start Date: 05/20/20 Stop Date: 05/15/21 Status: Ordered Lantus 100 u/ml subcutaneous solution = 40 units, Subcutaneous Infusion, 2 times a day, # 15 mL, 3 Refills, Maintenance, 07/30/20 18:34:00 EDT, [facility] #[id number], 170, cm, 05/20/20 14:48:00 EDT, Height, 100.5, kg, 05/30/19 9:39:00 EDT, Dry Weight Start Date: 07/30/20 Stop Date: 11/27/20 Status: Ordered lidocaine 4% topical cream 1 application, Topically, Daily, for 30 days, # 30 Gm, 2 Refills, Acute 11/04/20 13:08:00 EST, 08/06/20 13:08:00 EDT, Cream, [facility] #44999, 1 application Topically Daily,x30 days, 170, cm, 05/20/20 14:48:00 EDT, Height, 100.5, kg, ... Start Date: 08/06/20 Stop Date: 11/04/20 Status: Ordered lisinopril 40 mg oral tablet 1 tablet = 40 mg, By Mouth, Daily, # 90 tablet, 4 Refills, Maintenance, 02/03/20 12:39:00 EDT, Tablet, [facility] #[id number], 170, cm, 12/16/19 10:11:00 EST, Height, 100.5, kg, 05/30/19 9:39:00EDT, Dry Weight Start Date: 02/03/20 Stop Date: 04/28/21 Status: Ordered Melatonin 5 mg oral tablet 0 Refills, Maintenance, 01/29/19 10:09:09 EDT Start Date: 01/29/19 Status: Ordered NovoLOG 100 units/mL injectable solution = 20 units, Subcutaneous Infusion, 3 times a day before meals, replaces humalog, # 50 mL, 1 Refills, Maintenance, 07/29/20 11:23:00 EDT, [facility] #[id number], 170, cm, 05/20/20 14:48:00 EDT, Height, 100.5, [...] 0 Refills, Maintenance, 09/02/20 16:16:00 EDT, Tablet, [facility] 170, cm, 05/20/20 14:48:00 EDT, Height, 100.5, kg, 05/30/19 9:39:00 EDT, Dry Weight Start Date: 09/02/20 Status: Ordered traZODone 300 mg oral tablet TK 1 T PO HS Start Date: 01/29/19 Status: Ordered triamcinolone 0.1% topical ointment 1 application, Topically, 2 times a day, apply a thin film to affected area, # 60 Gm, 0 Refills, Maintenance, 05/20/20 15:09:00 EDT, Ointment, [facility] #[id number], 1 application Topically 2 times a day,x14 days,Instr:apply a thin film; to aff... Start Date: 05/20/20 Stop Date: 06/03/20 Status: Ordered Trulicity Pen 1.5 mg/0.5 mL subcutaneous solution 0.5 mL = 1.5 mg, Subcutaneous Injection, Every week, # 2.5 mL, 5 Refills, Maintenance, 07/29/20 8:56:00 EDT, Solution, [facility] #[id number], 170, cm, 05/20/20 14:48:00 EDT, Height, 100.5, [...] Umbilical hernia(Confirmed) Active 1per 2017 and 2019 [facility] notes Social History Social History Type Response Smoking Status Never (less than 100 in lifetime) entered on: 09/03/19 Sex Female 1per pt
--- OUTSIDE RECORDS SUMMARY | 2023-02-20 15:18 | XMS_ITS | Continuity of Care Document ---
Author Name Unknown Organization [facility] ter Address [address] [place] [address]- Care Team Providers Care Meat Slicer Name Role Phone Sangeetha MOSHER, Marcia Koroma Primary Care Physician [phone] [facility] Date(s): 04/30/20 - 06/24/[address] [address]- [facility] Attending Physician: Berry Dang MD Admitting Physician: Berry Dang MD Referring Physician: Nilesh NECK BAND MAKERArlette Allergies, Adverse Reactions, Alerts Substance Reaction Severity [...] Note: VIS GIVEN-DATED 05/30/11 2Result Comment: LOT [id number] EXP 04 MAY 2010 3Admin Note: VIS [...] 02/03/20 12:39:00 EDT, Route to Pharmacy Electronically, [facility] #[id number], 170, cm, 12/16/19 10:11:00 EST, Height, 100.5, kg, 05/30/19 9:39:00 EDT, Dry... Start Date: 02/03/20 Stop Date: 01/28/21 Status: Ordered aspirin 81 mg oral delayed release tablet 81 mg, 1, tablet, By Mouth, Daily, # 30 tablet, Refills 11, Tot. Refills 11, Maintenance, 05/20/20 14:45:00 EDT, Route to Pharmacy Electronically, [facility] #[id number], 170, cm, 05/20/20 14:08:00 EDT, Height, 100.5, kg, 05/30/19 9:39:00 EDT, Start Date: 05/20/20 Status: Ordered atorvastatin 10 mg oral tablet 1 tablet = 10 mg, By Mouth, Daily, # 30 tablet, 11 Refills, Maintenance, 05/20/20 14:46:00 EDT, [facility] #[id number], 170, cm, 05/20/20 14:08:00 EDT, Height, 100.5, [...] 03/06/19 17:12:53 EDT, Route to Pharmacy Electronically, [id number], [facility] [address] Start Date: 03/06/19 Status: Ordered Insulin Syringe, BD Ultra-Fine 0.5 cc 31 G x 8 mm (5/16in) See Instructions, # 150 each, Refills 11, Tot. Refills 11, Maintenance, use as directed for Type 2 Diabetes Mellitus to admisiter insulin four times a day. Dx; E11.9, 05/20/20 15:10:00 EDT, pt was transferred to [facility], all meds left beh... Start Date: 05/20/20 Stop Date: 05/15/21 Status: Ordered Lantus 100 u/ml subcutaneous solution = 40 units, Subcutaneous Infusion, 2 times a day, # 15 mL, 11 Refills, Maintenance, 04/28/20 11:50:00 EDT, [facility] #69826, 170, cm, 04/02/20 13:31:00 EDT, Height, 100.5, kg, 05/30/19 9:39:00 EDT, Dry Weight Start Date: 04/28/20 Stop Date: 04/23/21 Status: Ordered lisinopril 40 mg oral tablet 1 tablet = 40 mg, By Mouth, Daily, # 90 tablet, 4 Refills, Maintenance, 02/03/20 12:39:00 EDT, Tablet, [facility] #25534, 170, cm, 12/16/19 10:11:00 EST, Height, 100.5, kg, 05/30/19 9:39:00EDT, Dry Weight Start Date: 02/03/20 Stop Date: 04/28/21 Status: Ordered Melatonin 5 mg oral tablet 0 Refills, Maintenance, 01/29/19 10:09:09 EDT Start Date: 01/29/19 Status: Ordered NovoLOG 100 units/mL injectable solution = 20 units, Subcutaneous Infusion, 3 times a day before meals, replaces humalog, # 50 mL, 1 Refills, Maintenance, 02/09/20 16:58:00 EDT, [facility] #[id number], 170, cm, 12/16/19 10:11:00 EST, Height, 100.5, [...] 0 Refills, Maintenance, 05/20/20 15:09:00 EDT, Ointment, [facility] #[id number], 1 application Topically 2 times a day,x14 days,Instr:apply a thin film; to aff... Start Date: 05/20/20 Stop Date: 06/03/20 Status: Ordered Trulicity Pen 1.5 mg/0.5 mL subcutaneous solution 0.5 mL = 1.5 mg, Subcutaneous Injection, Every week, # 2.5 mL, 5 Refills, Maintenance, 02/03/20 10:19:00 EDT, Solution, [facility] #49011, 170, cm, 12/16/19 10:11:00 EST, Height, 100.5, [...] Umbilical hernia(Confirmed) Active 1per 2016 and 2019 [facility] notes Social History Social History Type Response Smoking Status Never (less than 100 in lifetime) entered on: 09/03/19 Sex Female 1per pt
--- OUTSIDE RECORDS SUMMARY | 2023-02-20 15:18 | XMS_ITS | Continuity of Care Document ---
Author Name Unknown Organization [facility] Address [address] [place] [address]- Care Team Providers Care Performing Arts Road Manager Name Role Phone Mamie Bahena MD Primary Care Physician [phone] Encounter [facility] [id number] Date(s): 07/04/21 - 08/14/21 [facility] [address] [place] [address]- Attending Physician: Luis F [place] MD Admitting Physician: Luis F [place] MD Referring Physician: Mamie Bahena MD Allergies, [...] Note: VIS GIVEN-DATED 05/30/11 2Result Comment: LOT [id number] EXP 04 MAY 2010 3Admin Note: VIS [...] 11 Refills, Maintenance, 07/18/21 15:05:00 EDT, Powder, [facility] Patient Lost her inhailer, Will need a [...] 07/20/21 9:24:00 EDT, Route to Pharmacy Electronically, [facility] #[id number], 170, cm, 07/20/21 8:57:00 EDT, Height Start Date: 07/20/21 Stop Date: 10/13/22 Status: Ordered atorvastatin 10 mg oral tablet 1 tablet = 10 mg, By Mouth, Daily, # 90 tablet, 1 Refills, Maintenance, 05/05/21 10:09:00 EDT, [facility] #[id number], 170, cm, 12/21/20 9:18:00 EST, Height, 100.5, [...] 07/20/21 9:33:00 EDT, Route to Pharmacy Electronically, [facility] #[id number], Partial fill upon patient request if the prescription is for a schedule II opi... Start Date: 07/20/21 Stop Date: 10/18/21 Status: Ordered insulin glargine 100 units/mL subcutaneous solution See Instructions, Subcutaneous Infusion Daily 45 units sc twice daily dx E11.9, # 12 mL, 11 Refills, Maintenance, 07/28/21 11:33:00 EDT, [facility], Partial fill upon patient request [...] tablet, 11 Refills, Maintenance, 06/21/21 14:39:00 EDT, [facility] #90102, 170, cm, 05/20/21 15:42:00 EDT, Height Start Date: 06/21/21 Status: Ordered lisinopril 40 mg oral tablet 1 tablet = 40 mg, By Mouth, Daily, # 90 tablet, 4 Refills, Maintenance, 07/20/21 9:25:00 EDT, [facility], [facility]810[facility], 170, cm, 07/20/21 8:57:00 EDT, Height Start Date: 07/20/21 Stop Date: 10/13/22 Status: Ordered Melatonin 5 mg oral tablet 0 Refills, Maintenance, 01/29/19 10:09:09 EDT Start Date: 01/29/19 Status: Ordered NovoLOG FlexPen 100 units/mL injectable solution See Instructions, INJECT 20 UNITS INTO SKIN THREE TIMES DAILY BEFORE A MEAL, # 48 mL, 11 Refills, Maintenance, [id number], 170, cm, 05/20/21 15:42:00 EDT, Height Start Date: 06/22/21 Status: Ordered OXcarbazepine 300 mg oral tablet TK 1 T PO BID Start Date: 01/29/19 Status: Ordered PARoxetine 40 mg oral tablet TK 1 T PO HS Start Date: 01/29/19 Status: Ordered Pen [place], 31 G x 5 mm BD Ultra Fine III See Instructions, # 150 each, Refills 11, Tot. Refills 11, Maintenance, use to inject insulin up tofive times daily dx e11.9, 10/21/20 15:55:00 EST, Supply, 170, cm, 05/20/20 14:48:00 EDT, Height, 100.5, kg, 05/30/19 9:39:00 EDT, Dry Weight Start Date: 10/21/20 Status: Ordered Pen [place], 31 G x 5 mm BD Ultra [...] 11 Refills, Maintenance, 07/18/21 15:06:00 EDT, Aerosol, [facility] Partial fill upon patient request if [...] 11 Refills, Maintenance, 07/28/21 10:54:00 EDT, Solution, [facility] Partial fill upon patient [...] Hypertension(Confirmed) Active Microalbuminuria(Confirmed) Active Morbid obesity(Confirmed) Active BHN/CCA/Luis Felipe Peters [phone]/Health [facility] active care coordination(Confirmed) Active Peripheral vascular disease(Confirmed) Active Umbilical hernia(Confirmed) Active 1per 2016 and 2019 [facility] notes Social History Social History Type Response Smoking Status Never (less than 100 in lifetime) entered on: 09/03/19 Sex Female 1per pt
--- OUTSIDE RECORDS SUMMARY | 2023-02-20 15:18 | XMS_ITS | Continuity of Care Document ---
Author Name Unknown Organization [facility] Address [address] [place] [address]- Care Team Providers Care Trial Court Justice Name Role Phone Josef MOSHER, Mamie Patterson Primary Care Physician [place] [facility] 12/16[place]21 - 01/15/22 [facility] [address], [place] [address] Allergies, Adverse Reactions, [...] Note: VIS GIVEN-DATED 05/30/11 2Result Comment: LOT [id number] EXP 04 MAY 2010 3Admin Note: VIS [...] 12/29/21 10:02:00 EST, Route to Pharmacy Electronically, [facility] #[id number], 170, cm, 07/28/21 10:50:00 EDT, Height Start Date: 12/29/21 Stop Date: 03/24/23 Status: Ordered atorvastatin 10 mg oral tablet 1 tablet, By Mouth, Daily, # 90 tablet, 1 Refills, Maintenance, 12/13/21 19:21:00 EST, [facility] #[id number], 170, cm, 07/28/21 10:50:00 EDT, Height Start [...] 12/29/21 10:02:00 EST, Route to Pharmacy Electronically, [facility] #[id number], Partial fill upon patientrequest if the prescription [...] tablet, 11 Refills, Maintenance, 12/29/21 10:02:00 EST, [facility] #[id number], resent - not recvd, 170, cm, 07/28/21 10:50:00 EDT, Height Start Date: 12/29/21 Status: Ordered Lantus 100 u/ml subcutaneous solution = 45 units, Subcutaneous Infusion, 2 times a day, changed from PEN, pt requesting vials, # 12 mL, 11 Refills, Maintenance, 01/11/22 9:45:00 EST, [facility] #[id number], Partial fill upon patientrequest if the prescription is for a schedule II op... Start Date: 01/11/22 Status: Ordered lidocaine 5% topical ointment 1 application, Topically, 3 times a day, wash hands thoroughly after application, prn pain, # 50 Gm, 0 Refills, Maintenance, 01/11/22 9:49:00 EST, Ointment, [facility] #[id number], Partial fill upon patient request if the prescription is for a sc... Start Date: 01/11/22 Status: Ordered lisinopril 40 mg oral tablet 1 tablet = 40 mg, By Mouth, Daily, # 90 tablet, 4 Refills, Maintenance, 07/20/21 9:25:00 EDT, Tablet, [facility] #[id number], 170, cm, 07/20/21 8:57:00 EDT, Height Start Date: 07/20/21 Stop Date: 10/13/22 Status: Ordered NovoLOG 100 units/mL injectable solution See Instructions, ADMINISTER 20 UNITS UNDER THE SKIN THREE TIMES DAILY BEFORE MEALS 90 DAY SUPPLY REQUESTED, # 30 mL, 2 Refills, [facility] #[id number], 170, cm, 07/28/21 10:50:00 EDT, Height Start [...] INJECTION SITES, # 2 mL, 0 Refills, [facility] #[id number], 170, cm, 07/28/21 10:50:00 EDT, Height Start Date: 01/10/22 Status: Ordered Ventolin HFA 108 mcg/inh inhalation aerosol with adapter 1 puffs, Inhalation, 4 times a day, PRN NEEDED FOR WHEEZING, # 18 Gm, 0 Refills, [facility] #[id number], 170, cm, 01/11/22 9:39:00 EST, Height Start [...] Obese class I(Confirmed) Active BHN/CCA/Luis Felipe Peters [phone]/Health longterm active care coordination(Confirmed) Active Peripheral vascular disease(Confirmed) Active Umbilical hernia(Confirmed) Active 1per 2016 and 2018 [facility] notes Social History Social History Type Response Smoking Status Never (less than 100 in lifetime) entered on: 09/03/19 Sex Female 1per pt
--- OUTSIDE RECORDS SUMMARY | 2023-02-20 15:18 | XMS_ITS | Continuity of Care Document ---
Author Name Unknown Organization [facility] Address [address] [place] [address]- Care Team Providers Care Orchestra Leader Name Role Phone Josef MOSHER, Mamie Patterson Primary Care Physician [phone] Encounter [facility] Date(s): 03/14/22 - 04/13/[address] [facility] Medicine [address] [place] [id number] Allergies, Adverse Reactions, Alerts Substance Reaction Severity Status ibuprofen ABD PAIN Active morphine Vomiting and itchy Active traMADol Itchy, Hives Active Immunizations Given and Recorded Vaccine Date Status Refusal Reason SARS-CoV-2 mRNA ([id number]) vax 02/22/22 Recorded SARS-CoV-2 (COVID-19) mRNA BNT-162b2 [...] Note: VIS GIVEN-DATED 05/30/11 2Result Comment: LOT [id number] EXP 04 MAY 2010 3Admin Note: VIS [...] 03/10/22 9:04:00 EDT, Route to Pharmacy Electronically, [facility] #[id number], Partial fill upon patient request if the prescription is for a schedule II opi... Start Date: 03/10/22 Status: Ordered aspirin 81 mg oral delayed release tablet 81 mg, By Mouth, Daily, # 30 tablet, Refills 0, Tot. Refills 0, Maintenance, 04/13/22 16:40:00 EDT,Route to Pharmacy Electronically, [facility], Partial fill upon patient request if the prescription is for a schedule II opioid drug., 17... Start Date: 04/13/22 Stop Date: 05/13/22 Status: Ordered atorvastatin 10 mg oral tablet 1 tablet, By Mouth, Daily, # 90 tablet, 1 Refills, Maintenance, 12/13/21 19:21:00 EST, [facility] #[id number], 170, cm, 07/28/21 10:50:00 EDT, Height Start [...] 04/13/22 16:40:00 EDT, Route to Pharmacy Electronically, [facility], Partial fill upon patient request if the prescription is for a schedule... Start Date: 04/13/22 Stop Date: 05/13/22 Status: Ordered cephalexin monohydrate 500 mg oral capsule 1 capsule = 500 mg, By Mouth, Every 6 hours, for 5 days, # 20 capsule, 0 Refills, Acute 04/18/22 16:41:00 EDT, 04/13/22 16:41:00 EDT, Capsule, [facility] 3, Partial fill upon patient request if the prescription is for a schedule II opioid... Start Date: 04/13/22 Stop Date: 04/18/22 Status: Ordered Colace sodium 100 mg oral capsule 100 mg, 1, capsule, By Mouth, 2 times a day, PRN, # 60 capsule, Refills 0, Tot. Refills 0, Maintenance, for constipation, 03/16/22 14:30:00 EDT, [facility], Partial fill upon patient [...] 04/06/22 14:48:00 EDT, Route to Pharmacy Electronically, [facility], Partial fill upon patient request if the prescription is for a schedule II opioi... Start Date: 04/06/22 Status: Ordered insulin aspart 100 units/mL subcutaneous solution = 20 units, Subcutaneous Injection, 3 times a day before meals, # 10 mL, 11 Refills, Maintenance, 03/10/22 9:06:00 EDT, [id number], Partial fill upon patient request if theprescription [...] tablet, 11 Refills, Maintenance, 03/09/22 14:23:00 EDT, [facility]., resent - not recvd, 169, cm, 03/09/22 13:46:00 EDT, Height, 104.9, kg, 03/04/22 2:58:00 EDT, Dry Weight Start Date: 03/09/22 Status: Ordered Lantus 100 u/ml subcutaneous solution = 30 units, Subcutaneous Injection, 2 times a day, # 10 mL, 5 Refills, Maintenance, 03/10/22 9:05:00 EDT, Solution, [facility] #[id number], Partial fill upon patient request if the [...] 04/13/22 16:41:00 EDT, Route to Pharmacy Electronically, [facility], Partial fill upon patie... Start Date: [...] 04/06/22 14:47:00 EDT, Route to Pharmacy Electronically, [facility], Partial fill upon patient request if [...] 0 Refills, Maintenance, 03/09/22 14:21:00 EDT, Gel, [facility] Partial fill upon patient request if the p... Start Date: 03/09/22 Status: Ordered traZODone 300 mg oral tablet 1 tablet = 300 mg, By Mouth, Daily at bedtime Start Date: 03/03/22 Status: Ordered Trulicity Pen 3 mg/0.5 mL subcutaneous solution See Instructions, ADMINISTER 0.5 ML UNDER THE SKIN EVERY WEEK. ROTATE INJECTION SITES, # 2 mL, 11 Refills, 03/09/22 14:22:00 EDT, [facility] 169, cm, 03/09/22 13:46:00 EDT, Height, 104.9, kg, 03/04/22 2:58:00 EDT, Dry Weight Start Date: 03/09/22 Status: Ordered Ventolin HFA 108 mcg/inh inhalation aerosol with adapter 1 puffs, Inhalation, 4 times a day, PRN NEEDED FOR WHEEZING, # 18 Gm, 0 Refills, [facility] #[id number], 170, cm, 01/11/22 9:39:00 EST, Height Start [...] Active Obese class II(Confirmed) Active BHN/CCA/AUDRA-Mignon Peters [phone]/Health snf active care coordination(Confirmed) Active Peripheral vascular disease(Confirmed) Active Uncontrolled type 1 diabetes mellitus with hyperglycemia, with long-term current use of insulin(Confirmed) Active Umbilical hernia(Confirmed) Active 1per 2017 and 2019 [facility] notes Social History Social History Type Response Smoking Status Never (less than 100 in lifetime) entered on: 09/03/19 Sex 1per pt
--- OUTSIDE RECORDS SUMMARY | 2023-02-20 15:18 | XMS_ITS | Continuity of Care Document ---
Author Name Unknown Organization [facility] Address [address] [place] [address]- Care Team Providers Care Adjuster Arbitrator Name Role Phone Sangeetha MOSHER, Marcia Koroma Primary Care Physician [facility]counter [facility] Date(s): 12/16/20 - 01/15/21 [facility] [address] [place] [id number] Allergies, Adverse Reactions, [...] Note: VIS GIVEN-DATED 05/30/11 2Result Comment: LOT [id number] EXP 04 MAY 2010 3Admin Note: VIS given Medications albuterol 90 mcg/inh inhalation powder 2 puffs, Inhalation, Every 6 hours, PRN as needed, # 1 each, 11 Refills, Maintenance, 12/08/20 11:02:00 EST, Powder, [facility] #[id number], 2 puffs Inhalation Every 6 hours,PRN:as needed, [...] 07/30/20 18:34:00 EDT, Route to Pharmacy Electronically, [facility] #[id number], 170, cm, 05/20/20 14:48:00 EDT, Height, 100.5, kg, 05/30/19 9:39:00 EDT, Dry... Start Date: 07/30/20 Stop Date: 07/25/21 Status: Ordered aspirin 81 mg oral delayed release tablet 81 mg, 1, tablet, By Mouth, Daily, # 30 tablet, Refills 11, Tot. Refills 11, Maintenance, 05/20/20 14:45:00 EDT, Route to Pharmacy Electronically, [facility] #[id number], 170, cm, 05/20/20 14:08:00 EDT, Height, 100.5, kg, 05/30/19 9:39:00 EDT, Start Date: 05/20/20 Status: Ordered atorvastatin 10 mg oral tablet 1 tablet = 10 mg, By Mouth, Daily, # 30 tablet, 11 Refills, Maintenance, 05/20/20 14:46:00 EDT, [facility] #[id number], 170, cm, 05/20/20 14:08:00 EDT, Height, 100.5, [...] 0 Refills, Maintenance, 09/02/20 14:20:00 EDT, Ointment, [facility] #[id number], 1 application Topically 2 times a day, [...] 09/10/20 18:41:00 EST, pt [facility]... Start Date: 09/10/20 Stop Date: 03/09/21 Status: Ordered Insulin Syringe, BD Ultra-Fine 0.5 cc 31 G x 8 mm (5/16in) See Instructions, # 150 each, Refills 11, Tot. Refills 11, Maintenance, use as directed for Type 2 Diabetes Mellitus to admisiter insulin four times a day. Dx; E11.9, 05/15/21 15:10:00 EDT, pt was transferred to [facility], [facility] meds left [facility]... Start Date: 05/15/21 Stop Date: 05/10/22 Status: Ordered Lantus 100 u/ml subcutaneous solution = 40 units, Subcutaneous Infusion, 2 times a day, # 15 mL, 3 Refills, Maintenance, 12/16/20 14:02:00 EST, [facility] #[id number], 170, cm, 05/20/20 14:48:00 EDT, Height, 100.5, kg, 05/30/19 9:39:00 EDT, Dry Weight Start Date: 12/16/20 Stop Date: 04/15/21 Status: Ordered lisinopril 40 mg oral tablet 1 tablet = 40 mg, By Mouth, Daily, # 90 tablet, 4 Refills, Maintenance, 02/03/20 12:39:00 EDT, Tablet, [facility] #[id number], 170, cm, 12/16/19 10:11:00 EST, Height, 100.5, [...] mL, 1 Refills, Maintenance, 12/17/20 13:06:00 EST, [facility] #53654, 170, cm, 05/20/2014:48:00 EDT, Height, 100.5, kg, 05/30/19 9:39:00 E... Start Date: 12/17/20 Status: Ordered OXcarbazepine 300 mg oral tablet TK 1 T PO BID Start Date: 01/29/19 Status: Ordered PARoxetine 40 mg oral tablet TK 1 T PO HS Start Date: 01/29/19 Status: Ordered Pen [place], 31 G x 5 mm BD Ultra [...] 1 Refills, Maintenance, 12/21/20 10:40:00 EST, Tablet, [facility] #[id number], Partial fill upon patient request if the [...] 0 Refills, Maintenance, 05/20/20 15:09:00 EDT, Ointment, [facility] #[id number], 1 application Topically 2 times a day,x14 days,Instr:apply a thin film; to aff... Start Date: 05/20/20 Stop Date: 06/03/20 Status: Ordered Trulicity Pen 0.75 mg/0.5 mL subcutaneous solution 0.5 mL = 0.75 mg, Subcutaneous Injection, Every week, rotate injection sites, # 2 mL, 2 Refills, Maintenance, 01/03/21 13:20:00 EST, Solution, [facility] #[id number], Partial fill upon patient request if the prescription is for a schedule II opio... Start Date: 01/03/21 Status: Ordered Trulicity Pen 1.5 mg/0.5 mL subcutaneous solution 0.5 mL = 1.5 mg, Subcutaneous Injection, Every week, # 2.5 mL, 5 Refills, Maintenance, 01/25/21 8:56:00 EDT, [facility] #[id number], 170, cm, 05/20/20 14:48:00 EDT, Height, 100.5, [...] Microalbuminuria(Confirmed) Active Morbid obesity(Confirmed) Active BHN/KELVIN/AUDRA-Mignon Peters [phone]/Health alf active care coordination(Confirmed) Active Peripheral vascular disease(Confirmed) Active Umbilical hernia(Confirmed) Active 1per 2017 and 2018 [facility] notes Social History Social History Type Response Smoking Status Never (less than 100 in lifetime) entered on: 09/03/19 Sex Female 1per pt
--- OUTSIDE RECORDS SUMMARY | 2023-02-20 15:18 | XMS_ITS | Continuity of Care Document ---
Author Name Unknown Organization [facility] Address [address] [place] [address]- Care Team Providers Care Diet Attendant Name Role Phone Olivier MOSHER, Allegra Primary Care Physician Encounter [facility] R [id number] Date(s): 11/01/22 - 11/08/22 [facility] [address] [place], [place] [address] Attending Physician: Victor Hugo MOSHER, Aditi Kilgore Admitting Physician: Victor Hugo MOSHER, Aditi Kilgore Allergies, Adverse Reactions, Alerts Substance Reaction Severity Status ibuprofen ABD PAIN Active morphine Vomiting and itchy Active traMADol Itchy, Hives Active Immunizations Given and Recorded Vaccine Date Status Refusal Reason SARS-CoV-2 mRNA ([id number]) vax 02/22/22 Recorded SARS-CoV-2 (COVID-19) mRNA BNT-162b2 [...] Note: VIS GIVEN-DATED 05/30/11 2Result Comment: LOT [id number] EXP 04 MAY 2010 3Admin Note: VIS [...] 04/24/22 9:05:00 EDT, Route to Pharmacy Electronically, [facility], Partial fill upon patient request if the prescription is for a schedule II opio... Start Date: 04/24/22 Status: Ordered ammonium lactate 5% topical lotion 1 application, Topically, 2 times a day, # 240 Gm, 0 Refills, Maintenance, 05/01/22 12:34:00 EDT, Lotion, [facility] #[id number], Partial fill upon patient request if the [...] 05/13/22 16:40:00 EDT, Route to Pharmacy Electronically, [facility], Partial fill upon patient request if the prescription is... Start Date: 05/13/22 Stop Date: 11/09/22 Status: Ordered aspirin 81 mg oral delayed release tablet 81 mg, By Mouth, Daily, # 30 tablet, Refills 0, Tot. Refills 0, Maintenance, 11/09/22 16:40:00 EST,Route to Pharmacy Electronically, [facility] #[id number], Partial fill upon patient request if the prescription is for a schedule II opioid drug., 169, cm,... Start Date: 11/09/22 Stop Date: 12/09/22 Status: Ordered atorvastatin 40 mg oral tablet 1 tablet = 40 mg, By Mouth, Daily, # 90 tablet, 2 Refills, Maintenance, 04/24/22 9:41:00 EDT, Tablet, [facility], Partial fill upon patient request if [...] 01/22/23 16:13:00 EDT, Route to Pharmacy Electronically, [facility] [...] 03/16/22 14:30:00 EDT, Route to Pharmacy Electronically, [facility], Partial fill upon patient request if [...] 0 Refills, Maintenance, 09/21/22 11:57:00 EST, Tablet, [facility] #[id number], Partial fill upon [...] 10/16/22 10:25:00 EST, Route to Pharmacy Electronically, [facility] #[id number], Partial fill upon patientrequest if the prescription [...] Refills, Soft Stop, 10/16/22 8:19:00 EST, Solution, [facility]/pharmacy #[id number], Partial fill upon patient [...] 09/20/22 11:19:00 EST, Route to Pharmacy Electronically, [facility]/pharmacy #[id number], Partial fillupon patient request if the prescription is for a s... Start Date: 09/20/22 Status: Ordered levoFLOXacin 250 mg oral tablet 1 tablet = 250 mg, By Mouth, Every 24 hours, # 14 tablet, 0 Refills, Maintenance, 09/20/22 11:28:00EST, Tablet, [facility]/pharm[facility] #[id number], Partial fill upon patient request if the prescription is for a schedule II opioid drug., 169, cm, 09/20/22 9:22:00 EST... Start Date: 09/20/22 Stop Date: 10/04/22 Status: Ordered lisinopril 10 mg oral tablet 10 mg, 1, tablet, By Mouth, Daily, # 90 tablet, Refills 1, Tot. Refills 1, Maintenance, 10/16/22 10:24:00 EST, Route to Pharmacy Electronically, [facility] #[id number], Partial fill upon patientrequest if the prescription is for a schedule II op... Start Date: 10/16/22 Stop Date: 04/14/23 Status: Ordered NovoLOG FlexPen 100 units/mL injectable solution = 20 units, Subcutaneous Injection, 3 times a day before meals, INJECT 20 UNITS INTO SKIN THREE TIMES DAILY BEFORE A MEAL, # 15 mL, 10 Refills, Maintenance, 08/01/22 16:09:00 EDT, [facility] 169, cm, 08/01/22 14:14:00 EDT, Height, [...] Acute 11/15/22 10:46:00 EST, 11/01/22 10:46:00 EST, [facility] #[id number], Partial fill upon patient [...] 04/24/22 9:03:00 EDT, Route to Pharmacy Electronically, [facility], Partial fill upon patient request if [...] 2 Refills, Maintenance, 10/16/22 13:14:00 EST, Solution, [facility] #[id number], Partial fill upon patient request if the prescription is for a schedule II opioid drug., 169, cm, 10/09/22 8:39... Start Date: 10/16/22 Status: Ordered Ventolin HFA 108 mcg/inh inhalation aerosol with adapter 1 puffs, Inhalation, Every 4 hours, PRN NEEDED FOR WHEEZING, # 18 Gm, 0 Refills, Maintenance, 11/02/22 8:15:00 EST, [facility] #[id number], 169, cm, 11/01/22 11:21:00 EST, Height, 103.42, [...] Active Morbid obesity Confirmed Active BHN/CCA/CP- [place] [phone] fpc active care coordination Confirmed Active Peripheral vascular disease - right SFA angioplasty/right great toe amputation 2021 Confirmed Active Severe obesity (BMI 35.0-39.9) with comorbidity Confirmed Active Umbilical hernia Confirmed Active 1per 2016 and 2018 [facility] notes Vital Signs Most recent to oldest [Reference Range]: 1 Height 169 cm (11/01/22 11:21 AM) Weight 109 kg (11/01/22 11:21 AM) Oxygen Saturation [94-100 %] 98 % (11/01/22 11:21 AM) Pulse Rate [55-90 bpm] 80 bpm (11/01/22 11:21 AM) Body Mass Index [18.5-24.99 kg/m2] 38.16 kg/m2 *>HHI* (11/01/22 11:21 AM) Blood Pressure [90-138/55-84 mm Hg] 168/ 90mm Hg *H* (11/01/22 11:21 AM) Mode of Delivery (Oxygen) Room air (11/01/22 11:21 AM) Blood pressure sites Arm, left (11/01/22 11:21 AM) Weight Obtained Via Patient/family state d (11/01/22 11:21 AM) Social History Social History Type Response Smoking Status Never (less than 100 in lifetime) entered on: 09/03/19 Sex 1per pt Note * Zahra Terrell: PERFORM, SIGN, VERIFY Event Display: Patient Education/Instruction Authored Date: [id number] [facility] *[facility] [address] Clinical Summary Name SUZIE COPPOLA Age 46 Years 1975 PCP Olivier MOSHER, Allegra PCP Visit Date 11/01/2022 10:48:00 Additional Instructions: Scheduled Appointments?? Future Appointments ?*[facility] ?Phone:??--?Fax:??-- ?Appt. Date:??11/09/2022?9:40 AM ?Scheduled Provider:??Inpatient Follow Up Clinic ?*[facility] ?Phone:??--?Fax:??-- ?Appt. Date:??12/11/2022?3:00 PM ?Scheduled Provider:??Ultrasound Room 2 [facility] ?*[facility],??[place],??[address] ?Phone:??--?Fax:??-- ?Appt. Date:??12/20/2022?10:00 AM ?Scheduled Provider:??Victor Hugo MOSHER , Aditi Kilgore Follow-Up Instructions ?? Diagnosis Medications: Please continue your medications until treatment is completed or stopped by your provider. Discuss any questions related to medications with your provider. Medications to Continue with No Changes These medications were not printed or sent to your pharmacy Albuterol (ProAir HFA 90 mcg/inh inhalation aerosol) [...] Milligram Oral Daily for 30 Days. Refills: 0. Next Dose: Aspirin (aspirin [...] constipation.Refills: 0. Next Dose: dulaglutide (Trulicity Pen 1.5 mg/0.5 mL subcutaneous solution) 0.5 Milliliter Subcutaneous Injection every week. Refills: 2. Next Dose: Durable Medical Equipment (1/4 inch [...] twice a day for 90 Days. Refills: 1. Next Dose: Levofloxacin (levoFLOXacin 250 mg oral tablet) 1 tab(s) Oral every 24 hours for 14 Days. Refills: 0. Next Dose: Lisinopril (lisinopril 10 mg oral tablet) 1 tab(s) Oral Daily for 90 Days. Refills: 1. Next Dose: Miscellaneous Rx (D/armando Rx) Ktuvia has been discontinued. Refills: 0. Next Dose: Oxycodone (oxyCODONE 10 mg oral tablet) 1 tab(s) Oral every 12 hours for 14 Days. Refills: 0. Next Dose: Paroxetine (PARoxetine 40 mg oral tablet) 1 tab(s) Oral Daily. Next Dose: Trazodone (traZODone 300 mg oral tablet) 1 tab(s) Oral Daily at Bedtime. Next Dose: Allergy Info:?? traMADol; morphine; ibuprofen Medications Given This Visit Future Orders ?No future orders Vital Signs Height 169 cm Weight 109 kg BMI 38.16 kg/m2 Blood Pressure 168 mm Hg/90 mm Hg Temperature Pulse Rate 80 bpm Respiratory Rate 02 Sat Mode of Delivery 98 %/Room air You can now view a summary of your hospital visit from the comfort of your home through a free online portal called [employer]. Yorn is a website that allows you to securely view your medical information including discharge summary, medications and follow-up visits. ??You can alsosend a secure electronic message to your doctor???s office to request appointments, renew medications or just ask a question. You can enroll at [email or web address] or register during your next office visit. [...] primary care provider, you may find a [facility] provider by calling [facility] at [phone]. For information about the plan of care [...] CENTER Resident Member Role: PCP Address: Address: [address] [place] [address] [place] [address]- Name: Vera Locke RN Position: [facility] RN Member Role: Primary Care Nurse Name: Balijt Martínez RN Position: [facility] RN [...] Persons Name: MIKEY SEAY Address: home [address] [address] Name: MIKEY AYALA Address: home [address] [place] [address] Name: TANIA COPPOLA Address: home [address] [place] [id number] Name: TANIA MUÑIZ Address: home [address] [place] [id number]
--- OUTSIDE RECORDS SUMMARY | 2023-02-20 15:18 | XMS_ITS | Continuity of Care Document ---
Author Name Unknown Organization [facility] Address [address] [place] [address]- Care Team Providers Care Gas Meter Installer Helper Name Role Phone Sangeetha MOSHER, Marcia Koroma Primary Care Physician Encounter [facility] Date(s): 02/24/21 - 03/26/21 [facility] [address], [place] [address] Allergies, Adverse Reactions, Alerts Substance Reaction [...] Note: VIS GIVEN-DATED 05/30/11 2Result Comment: LOT [id number] EXP 04 MAY 2010 3Admin Note: VIS given Medications albuterol 90 mcg/inh inhalation powder 2 puffs, Inhalation, Every 6 hours, PRN as needed, # 1 each, 11 Refills, Maintenance, 12/08/20 11:02:00 EST, Powder, [facility] #[id number], 2 puffs Inhalation Every 6 hours,PRN:as needed, [...] 07/30/20 18:34:00 EDT, Route to Pharmacy Electronically, [facility] #[id number], 170, cm, 05/20/20 14:48:00 EDT, Height, 100.5, kg, 05/30/19 9:39:00 EDT, Dry... Start Date: 07/30/20 Stop Date: 07/25/21 Status: Ordered aspirin 81 mg oral delayed release tablet 81 mg, 1, tablet, By Mouth, Daily, # 30 tablet, Refills 11, Tot. Refills 11, Maintenance, 05/20/20 14:45:00 EDT, Route to Pharmacy Electronically, [facility] #[id number], 170, cm, 05/20/20 14:08:00 EDT, Height, 100.5, kg, 05/30/19 9:39:00 EDT, . Start Date: 05/20/20 Status: Ordered atorvastatin 10 mg oral tablet 1 tablet = 10 mg, By Mouth, Daily, # 30 tablet, 11 Refills, Maintenance, 05/20/20 14:46:00 EDT, [facility] #[id number], 170, cm, 05/20/20 14:08:00 EDT, Height, 100.5, [...] mL, 3 Refills, Maintenance, 01/29/21 9:00:00 EDT, [facility] #[id number], 170, cm, 12/21/20 9:18:00 EST, Height, 100.5, kg, 05/30/19 9:39:00 EDT, Dry Weight Start Date: 01/29/21 Status: Ordered lisinopril 40 mg oral tablet 1 tablet = 40 mg, By Mouth, Daily, # 90 tablet, 4 Refills, Maintenance, 02/03/20 12:39:00 EDT, Tablet, [facility] #[id number], 170, cm, 12/16/19 10:11:00 EST, Height, 100.5, kg, 05/30/19 9:39:00EDT, Dry Weight Start Date: 02/03/20 Stop Date: 04/28/21 Status: Ordered Melatonin 5 mg oral tablet 0 Refills, Maintenance, 01/29/19 10:09:09 EDT Start Date: 01/29/19 Status: Ordered NovoLOG FlexPen 100 units/mL injectable solution See Instructions, INJECT 20 UNITS SUBCUTANEOULSY THREE TIMES DAILY BEFORE MEALS., # 48 mL, 0 Refills, 03/21/21 10:05:00 EDT, [facility] #[id number], 170, cm, 12/21/20 9:18:00 EST, Height, 100.5,kg, 05/30/19 9:39:00 EDT, Dry Weight Start Date: 03/21/21 Status: Ordered OXcarbazepine 300 mg oral tablet TK 1 T PO BID Start Date: 01/29/19 Status: Ordered PARoxetine 40 mg oral tablet TK 1 T PO HS Start Date: 01/29/19 Status: Ordered Pen Baker, 31 G x 5 mm BD Ultra Fine III See Instructions, # 150 each, Refills 11, Tot. Refills 11, Maintenance, use to inject insulin up tofive times daily dx e11.9, 10/21/20 15:55:00 EST, Supply, 170, cm, 05/20/20 14:48:00 EDT, Height, 100.5, kg, 05/30/19 9:39:00 EDT, Dry Weight Start Date: 10/21/20 Status: Ordered Pen Baker, 31 G x 5 mm BD Ultra [...] 2 Refills, Maintenance, 02/11/21 11:27:00 EDT, Tablet, [facility] #[id number], pt needs labs; to replace 50 mg dose;, 170, cm, 12/21/20... Start Date: 02/11/21 Status: Ordered traZODone 300 mg oral tablet TK 1 T PO HS Start Date: 01/29/19 Status: Ordered Trulicity Pen 1.5 mg/0.5 mL subcutaneous solution 0.5 mL = 1.5 mg, Subcutaneous Injection, Every week, # 2.5 mL, 5 Refills, Maintenance, 02/01/21 14:49:00 EDT, Solution, [facility] #[id number], to replace 0.75 mg dose, 170, cm, [...] Microalbuminuria(Confirmed) Active Morbid obesity(Confirmed) Active BHN/CCA/AUDRA-Mignon Peters [phone]/Health nursing home active care coordination(Confirmed) Active Peripheral vascular disease(Confirmed) Active Umbilical hernia(Confirmed) Active 1per 2017 and 2019 [facility] notes Social History Social History Type Response Smoking Status Never (less than 100 in lifetime) entered on: 09/03/19 Sex Female 1per pt
--- OUTSIDE RECORDS SUMMARY | 2023-02-20 15:18 | XMS_ITS | Continuity of Care Document ---
Author Name Unknown Organization [facility] Address [address] [place] [address]- Care Team Providers Care Logistics Technician Name Role Phone Josef MOSHRE, Mamie Patterson Primary Care Physician Encounter [facility] Date(s): 03/02/22 - 03/31/22 [facility] [address] [place] [id number] Attending Physician: Brayan Solis MD Admitting Physician: Brayan Solis MD Allergies, Adverse Reactions, Alerts Substance Reaction Severity Status ibuprofen ABD PAIN Active morphine Vomiting and itchy Active traMADol Itchy, Hives Active Immunizations Given and Recorded Vaccine Date Status Refusal Reason SARS-CoV-2 mRNA (dvdycco-rqem-[id number]) vax 02/22/22 Recorded SARS-CoV-2 (COVID-19) mRNA BNT-162b2 [...] Note: VIS GIVEN-DATED 05/30/11 2Result Comment: LOT [id number] EXP 04 MAY 2010 3Admin Note: VIS [...] 03/10/22 9:04:00 EDT, Route to Pharmacy Electronically, [facility] #[id number], Partial fill upon patient request if the prescription is for a schedule II opi... Start Date: 03/10/22 Status: Ordered atorvastatin 10 mg oral tablet 1 tablet, By Mouth, Daily, # 90 tablet, 1 Refills, Maintenance, 12/13/21 19:21:00 EST, [facility] #[id number], 170, cm, 07/28/21 10:50:00 EDT, Height Start [...] 0 Refills, Maintenance, 03/16/22 14:35:00 EDT, Capsule, [facility], Partial fill upon patient request if the prescription is for a schedule II opioid drug., 169, cm, 03/16/22 14:07:00... Start Date: 03/16/22 Status: Ordered insulin aspart 100 units/mL subcutaneous solution = 20 units, Subcutaneous Injection, 3 times a day before meals, # 10 mL, 11 Refills, Maintenance, 03/10/22 9:06:00 EDT, Solution, [facility] #[id number], Partial fill upon patient request if theprescription is for a schedule II opioid drug., 169... Start Date: 03/10/22 Status: Ordered Insulin Syringe, BD Ultra-Fine 0.5 cc 31 G x 8 mm (5/16in) See Instructions, # 100 each, Refills 3, Tot. Refills 3, Maintenance, use as directed for Type 2 Diabetes Mellitus to admisiter insulin two times a day. Dx; E11.9, 05/05/22 14:24:00 EDT, Compound, 169, cm, 03/09/22 13:46:00 EDT, Height, 104.9, kg,... Start Date: 03/09/22 Stop Date: 07/07/22 Status: Ordered Januvia 100 mg oral tablet 1 tablet, By Mouth, Daily, # 90 tablet, 11 Refills, Maintenance, 03/09/22 14:23:00 [facility], cm, 03/09/22 13:46:00 EDT, Height, 104.9, kg, 03/04/22 2:58:00 EDT, Dry Weight Start Date: 03/09/22 Status: Ordered Lantus 100 u/ml subcutaneous solution = 30 units, Subcutaneous Injection, 2 times a day, # 10 mL, 5 Refills, Maintenance, 03/10/22 9:05:00 EDT, Solution, [facility] #[id number], Partial fill upon patient request if the prescription is for a schedule II opioid drug., 169, cm, 03/09/22... Start Date: 03/10/22 Status: Ordered lisinopril 40 mg oral tablet 1 tablet = 40 mg, By Mouth, Daily, # 30 tablet, 5 Refills, Maintenance, 03/10/22 9:03:00 EDT, Tablet, [facility] #[id number], Partial fill upon patient request if the [...] 0 Refills, Maintenance, 03/09/22 14:21:00 EDT, Gel, [facility] Partial fill upon patient request if the p... Start Date: 03/09/22 Status: Ordered traZODone 300 mg oral tablet 1 tablet = 300 mg, By Mouth, Daily at bedtime Start Date: 03/03/22 Status: Ordered Trulicity Pen 3 mg/0.5 mL subcutaneous solution See Instructions, ADMINISTER 0.5 ML UNDER THE SKIN EVERY WEEK. ROTATE INJECTION SITES, # 2 mL, 11 Refills, 03/09/22 14:22:00 EDT, [facility]., 169, cm, 03/09/22 13:46:00 EDT, Height, 104.9, kg, 03/04/22 2:58:00 EDT, Dry Weight Start Date: 03/09/22 Status: Ordered Tylenol Extra Strength 500 mg oral tablet 2 tablet = 1,000 mg, By Mouth, Every 6 hours, prn pain, # 100 tablet, 0 Refills, Maintenance, 03/16/22 14:30:00 [facility] Partial fill upon patient request if the prescription is for a schedule II opioid drug., 169, cm, 03/16/22... Start Date: 03/16/22 Status: Ordered Ventolin HFA 108 mcg/inh inhalation aerosol with adapter 1 puffs, Inhalation, 4 times a day, PRN NEEDED FOR WHEEZING, # 18 Gm, 0 Refills, [facility] #[id number], 170, cm, 01/11/22 9:39:00 EST, Height Start [...] Active Obese class II(Confirmed) Active BHN/CCA/AUDRA-Mignon Peters [phone]/Health [facility] active care coordination(Confirmed) Active Peripheral vascular disease(Confirmed) Active Uncontrolled type 1 diabetes mellitus with hyperglycemia, with long-term current use of insulin(Confirmed) Active Umbilical hernia(Confirmed) Active 1per 2016 and 2018 [facility] notes Social History Social History Type Response Smoking Status Never (less than 100 in lifetime) entered on: 09/03/19 Sex 1per pt
--- OUTSIDE RECORDS SUMMARY | 2023-02-20 15:18 | XMS_ITS | Continuity of Care Document ---
Author Name Unknown Organization [facility] Address [address] [place] [address]- Care Team Providers Care Aquatics Coordinator Name Role Phone Sangeetha MOSHER, Marcia Koroma Primary Care Physician Encounter [facility] Date(s): 07/30/20 - 08/29/20 [facility] [address] [place] [address]- [facility] Allergies, Adverse Reactions, Alerts Substance Reaction Severity [...] Note: VIS GIVEN-DATED 05/30/11 2Result Comment: LOT [id number] EXP 04 MAY 2010 3Admin Note: VIS [...] 07/30/20 18:34:00 EDT, Route to Pharmacy Electronically, [facility] #[id number], 170, cm, 05/20/20 14:48:00 EDT, Height, 100.5, kg, 05/30/19 9:39:00 EDT, Dry... Start Date: 07/30/20 Stop Date: 07/25/21 Status: Ordered aspirin 81 mg oral delayed release tablet 81 mg, 1, tablet, By Mouth, Daily, # 30 tablet, Refills 11, Tot. Refills 11, Maintenance, 05/20/20 14:45:00 EDT, Route to Pharmacy Electronically, [facility] #[id number], 170, cm, 05/20/20 14:08:00 EDT, Height, 100.5, kg, 05/30/19 9:39:00 EDT, . Start Date: 05/20/20 Status: Ordered atorvastatin 10 mg oral tablet 1 tablet = 10 mg, By Mouth, Daily, # 30 tablet, 11 Refills, Maintenance, 05/20/20 14:46:00 EDT, [facility] #[id number], 170, cm, 05/20/20 14:08:00 EDT, Height, 100.5, [...] 03/06/19 17:12:53 EDT, Route to Pharmacy Electronically, [id number], [facility] [id number] Start Date: 03/06/19 Status: Ordered Insulin Syringe, BD Ultra-Fine 0.5 cc 31 G x 8 mm (16in) See Instructions, # 150 each, Refills 11, Tot. Refills 11, Maintenance, use as directed for Type 2 Diabetes Mellitus to admisiter insulin four times a day. Dx; E11.9, 05/15/21 15:10:00 EDT, pt was transferred to [facility], all meds left beh... Start Date: [...] E11.9,05/20/20 15:10:00 EDT, pt was transferred to [facility].. Start Date: 05/20/20 Stop Date: 05/15/21 Status: Ordered Lantus 100 u/ml subcutaneous solution = 40 units, Subcutaneous Infusion, 2 times a day, # 15 mL, 3 Refills, Maintenance, 07/30/20 18:34:00 EDT, [facility] #[id number], 170, cm, 05/20/20 14:48:00 EDT, Height, 100.5, kg, 05/30/19 9:39:00 EDT, Dry Weight Start Date: 07/30/20 Stop Date: 11/27/20 Status: Ordered lidocaine 4% topical cream 1 application, Topically, Daily, for 30 days, # 30 Gm, 2 Refills, Acute 11/04/20 13:08:00 EST, 08/06/20 13:08:00 EDT, Cream, [facility] #[id number], 1 application Topically Daily,x30 days, 170, cm, 05/20/20 14:48:00 EDT, Height, 100.5, kg, ... Start Date: 08/06/20 Stop Date: 11/04/20 Status: Ordered lisinopril 40 mg oral tablet 1 tablet = 40 mg, By Mouth, Daily, # 90 tablet, 4 Refills, Maintenance, 02/03/20 12:39:00 EDT, Tablet, [facility] #[id number], 170, cm, 12/16/19 10:11:00 EST, Height, 100.5, kg, 05/30/19 9:39:00EDT, Dry Weight Start Date: 02/03/20 Stop Date: 04/28/21 Status: Ordered Melatonin 5 mg oral tablet 0 Refills, Maintenance, 01/29/19 10:09:09 EDT Start Date: 01/29/19 Status: Ordered NovoLOG 100 units/mL injectable solution = 20 units, Subcutaneous Infusion, 3 times a day before meals, replaces humalog, # 50 mL, 1 Refills, Maintenance, 07/29/20 11:23:00 EDT, [facility] #[id number], 170, cm, 05/20/20 14:48:00 EDT, Height, 100.5, [...] 0 Refills, Maintenance, 05/20/20 15:09:00 EDT, Ointment, [facility] #[id number], 1 application Topically 2 times a day,x14 days,Instr:apply a thin film; to aff... Start Date: 05/20/20 Stop Date: 06/03/20 Status: Ordered Trulicity Pen 1.5 mg/0.5 mL subcutaneous solution 0.5 mL = 1.5 mg, Subcutaneous Injection, Every week, # 2.5 mL, 5 Refills, Maintenance, 07/29/20 8:56:00 EDT, Solution, [facility] #[id number], 170, cm, 05/20/20 14:48:00 EDT, Height, 100.5, [...] Umbilical hernia(Confirmed) Active 1per 2016 and 2018 [facility] notes Social History Social History Type Response Smoking Status Never (less than 100 in lifetime) entered on: 09/03/19 Sex Female 1per pt
--- OUTSIDE RECORDS SUMMARY | 2023-02-20 15:18 | XMS_ITS | Continuity of Care Document ---
Author Name Unknown Organization [facility] Address [address] [place] [address]- Care Team Providers Care Ticket Seller Name Role Phone Olivier MOSHER, Allegra Primary Care Physician Encounter [facility] Date(s): 09/21/22 - 10/25/22 [facility] [address] [place], [place] [address] Attending Physician: Madeline Asif NP Admitting Physician: Madeline Asif NP Allergies, Adverse Reactions, Alerts Substance Reaction Severity Status ibuprofen ABD PAIN Active morphine Vomiting and itchy Active traMADol Itchy, Hives Active Immunizations Given and Recorded Vaccine Date Status Refusal Reason SARS-CoV-2 mRNA ([id number]-utrh-[id number]) vax 02/22/22 Recorded SARS-CoV-2 (COVID-19) mRNA BNT-162b2 [...] Note: VIS GIVEN-DATED 05/30/11 2Result Comment: LOT [id number] EXP 04 MAY 2010 3Admin Note: VIS [...] 04/24/22 9:05:00 EDT, Route to Pharmacy Electronically, [facility], Partial fill upon patient request [...] 05/13/22 16:40:00 EDT, Route to Pharmacy Electronically, [facility], Partial fill upon patient request [...] 2 Refills, Maintenance, 04/24/22 9:41:00 EDT, Tablet, [facility], Partial fill upon patient request [...] 03/16/22 14:30:00 EDT, Route to Pharmacy Electronically, [facility], Partial fill upon patient request [...] 10/16/22 10:25:00 EST, Route to Pharmacy Electronically, [facility] #[id number], Partial fill upon patientrequest if the prescription [...] Refills, Soft Stop, 10/16/22 8:19:00 EST, Solution, [facility]/pharmacy #[id number], Partial fill [...] 10/16/22 10:24:00 EST, Route to Pharmacy Electronically, [facility] #[id number], Partial fill upon patientrequest if the prescription is for a schedule II op... Start Date: 10/16/22 Stop Date: 04/14/23 Status: Ordered NovoLOG FlexPen 100 units/mL injectable solution = 20 units, Subcutaneous Injection, 3 times a day before meals, INJECT 20 UNITS INTO SKIN THREE TIMES DAILY BEFORE A MEAL, # 15 mL, 10 Refills, Maintenance, 08/01/22 16:09:00 EDT, [facility], 169, cm, 08/01/22 14:14:00 EDT, Height, [...] 04/24/22 9:03:00 EDT, Route to Pharmacy Electronically, [facility], Partial fill upon patient request if the prescription is for a schedule II opio... Start Date: 04/24/22 Status: Ordered ProAir HFA 90 mcg/inh inhalation aerosol 1 puffs, Inhalation, Every 4 hours, PRN as needed for wheezing, # 18 Gm, 0 Refills, Maintenance, 10/03/22 6:38:00 EST, Aerosol, [facility] #[id number], Partial fill upon patient request if the [...] 2 Refills, Maintenance, 10/16/22 13:14:00 EST, Solution, [facility]/pharmacy #[id number], Partial fill upon patient request if the prescription is for a schedule II opioid drug., 169, cm, 10/09/22 8:39... Start Date: 10/16/22 Status: Ordered Ventolin HFA 108 mcg/inh inhalation aerosol with adapter 2 puffs, Inhalation, Every 6 hours, PRN Wheezing/Shortness of Breath, # 8 Gm, 1 Refills, Maintenance, 05/30/22 10:56:00 EDT, [facility], Partial fill upon patient request [...] Obese class II Confirmed Active BHN/CCA/CP- [facility] [phone] assisted active care coordination Confirmed Active Peripheral vascular disease - right SFA angioplasty/right great toe amputation 2021 Confirmed Active Umbilical hernia Confirmed Active 1per 2016 and 2018 [facility] notes Social History Social History Type Response Smoking Status Never (less than 100 in lifetime) entered on: 09/03/19 Sex 1per pt Patient Care team information Care Team Personnel Name: Allegra Aguayo MD Position: [facility] Resident Member Role: PCP Address: Address: [address] [place] [address] Name: Vera Locke RN Position: S RN Member Role: Primary Care Nurse Name: Baljit Martínez RN Position: S RN Member Role: Primary Care Nurse Name: Sabine Guthrie RN Position: [facility] RN Member Role: Primary Care Nurse Name: Aditi Hernandez RN Position: S RN Member Role: Primary Care Nurse Name: Piyush Moore RN Position: [facility] RN Member Role: Primary Care Nurse Name: Mis Vences RN Position: [facility] RN Member Role: Primary Care Nurse Name: Angie Lopez RN Position: [facility] RN Member Role: Primary Care Nurse Name: Lizzie Estrada RN Position: [facility] RN Member Role: Primary Care Nurse Care Team Related Persons Name: MIKEY SEAY Address: home [address] [address] Name: MIKEY AYALA Address: home [address] [place] [address] Name: TANIA COPPOLA Address: home [address] [place] [address] Name: TANIA MUÑIZ Address: home [address] [place] [address]
--- OUTSIDE RECORDS SUMMARY | 2023-02-20 15:18 | XMS_ITS | Continuity of Care Document ---
Author Name Unknown Organization [facility] Address [address] [place] [address]- Care Team Providers Care Rocket Engine Component Mechanic Name Role Phone Olivier MOSHER, Allegra Primary Care Physician [phone] Encounter [facility] R [id number] Date(s): 12/14/22 - 01/28/23 [facility] [address] [place], [place] [address] Attending Physician: Victor Hugo MOSHER, Aditi Kilgore Admitting Physician: Victor Hugo MOSHER, Aditi Kilgore Referring Physician: Victor Hugo MOSHER, Aditi Kilgore Allergies, Adverse Reactions, Alerts Substance Reaction Severity Status ibuprofen ABD PAIN Active morphine Vomiting and itchy Active traMADol Itchy, Hives Active Immunizations Given and Recorded Vaccine Date Status Refusal Reason SARS-CoV-2 mRNA ([id number]) vax 02/22/22 Recorded SARS-CoV-2 (COVID-19) mRNA BNT-162b2 [...] Note: VIS GIVEN-DATED 05/30/11 2Result Comment: LOT [id number] EXP 04 MAY 2010 3Admin Note: VIS [...] 01/23/23 10:18:00 EDT, Route to Pharmacy Electronically, [facility]/pharmacy [...] 3 Refills, Maintenance, 01/23/23 10:17:00 EDT, Tablet, [facility]/pharmacy #[id number], Partial fill upon [...] 10/16/22 10:25:00 EST, Route to Pharmacy Electronically, [facility] #[id number], Partial fill upon patientrequest if the prescription is for a schedule II op... Start Date: 10/16/22 Status: Ordered Lantus Solostar Pen 100 units/mL subcutaneous solution See Instructions, Subcutaneous Injection, 30 units sc bid dx E11.9 dose increased 01/23/23, # 15 mL,11 Refills, Maintenance, 01/23/23 9:43:00 EDT, [facility]/pharmacy #[id number], Partial fill upon patient request if the prescription is for a schedule II opioid d... Start Date: 01/23/23 Stop Date: 01/18/24 Status: Ordered lisinopril 10 mg oral tablet 10 mg, 1, tablet, By Mouth, Daily, # 90 tablet, Refills 2, Tot. Refills 2, Maintenance, 01/23/23 10:15:00 EDT, Route to Pharmacy Electronically, [facility]/pharmacy [...] EST Start Date: 01/11/22 Status: Ordered Pen [place], 31 G x 5 mm BD Ultra [...] 10/09/22 8:39:00 EST, Dry Weight Start Date: 3/21/23 Status: Ordered Problem List Condition Confirmation Course [...] Active Morbid obesity Confirmed Active BHN/CCA/CP- [facility] [phone] long-term active care coordination Confirmed Active Peripheral vascular disease - right SFA angioplasty/right great toe amputation 2021 Confirmed Active Severe obesity Confirmed Active Umbilical hernia Confirmed Active 1per 2016 and 2018 [facility] notes Social History Social History Type Response Smoking Status Never (less than 100 in lifetime) entered on: 09/03/19 Sex 1per pt Patient Care team information Care Team Personnel Name: Allegra Aguayo MD Position: [facility] Resident Member Role: PCP Address: Address: [address] [place] [address] Name: Baljit Martínez RN Position: S RN [...] Care Nurse Name: Lizzie Estrada RN Position: [facility] Onco RN Member Role: Primary Care Nurse Care Team Related Persons Name: MIKEY SEAY Address: home [address] [address] Name: MIKEY AYALA Address: home [address] [place] [address] Name: TANIA COPPOLA Address: home [address] [place] [address] Name: TANIA MUÑIZ Address: home [address] [place] [address]
--- OUTSIDE RECORDS SUMMARY | 2023-02-20 15:18 | XMS_ITS | Continuity of Care Document ---
Author Name Unknown Organization [facility] Address [address] [place] [address]- Care Team Providers Care Mid Level Net Developer Name Role Phone Sangeetha MOSHER, Marcia Koroma Primary Care Physician [phone] Encounter [facility] Date(s): 12/21/20 - 01/20/21 [facility] [address] [place] [id number] Attending Physician: Admtr, Ar8 Allergies, Adverse Reactions, [...] Note: VIS GIVEN-DATED 05/30/11 2Result Comment: LOT [id number] EXP 04 MAY 2010 3Admin Note: VIS given Medications albuterol 90 mcg/inh inhalation powder 2 puffs, Inhalation, Every 6 hours, PRN as needed, # 1 each, 11 Refills, Maintenance, 12/08/20 11:02:00 EST, Powder, [facility] #[id number], 2 puffs Inhalation Every 6 hours,PRN:as needed, [...] 07/30/20 18:34:00 EDT, Route to Pharmacy Electronically, [facility] #[id number], 170, cm, 05/20/20 14:48:00 EDT, Height, 100.5, kg, 05/30/19 9:39:00 EDT, Dry... Start Date: 07/30/20 Stop Date: 07/25/21 Status: Ordered aspirin 81 mg oral delayed release tablet 81 mg, 1, tablet, By Mouth, Daily, # 30 tablet, Refills 11, Tot. Refills 11, Maintenance, 05/20/20 14:45:00 EDT, Route to Pharmacy Electronically, [facility] #[id number], 170, cm, 05/20/20 14:08:00 EDT, Height, 100.5, kg, 05/30/19 9:39:00 EDT, Start Date: 05/20/20 Status: Ordered atorvastatin 10 mg oral tablet 1 tablet = 10 mg, By Mouth, Daily, # 30 tablet, 11 Refills, Maintenance, 05/20/20 14:46:00 EDT, [facility] #[id number], 170, cm, 05/20/20 14:08:00 EDT, Height, 100.5, [...] 0 Refills, Maintenance, 09/02/20 14:20:00 EDT, Ointment, [facility] #[id number], 1 application Topically 2 times a day, [...] 09/10/20 18:41:00 EST, pt [facility] transferred [facility] Start Date: 09/10/20 Stop Date: 03/09/21 Status: Ordered Insulin Syringe, BD Ultra-Fine 0.5 cc 31 G x 8 mm (516in) See Instructions, # 150 each, Refills 11, Tot. Refills 11, Maintenance, use as directed for Type 2 Diabetes Mellitus to admisiter insulin four times a day. Dx; E11.9, 05/15/21 15:10:00 EDT, pt was transferred to [facility], all meds left beh... Start Date: 05/15/21 Stop Date: 05/10/22 Status: Ordered Lantus 100 u/ml subcutaneous solution = 40 units, Subcutaneous Infusion, 2 times a day, # 15 mL, 3 Refills, Maintenance, 12/16/20 14:02:00 EST, [facility] #[id number], 170, cm, 05/20/20 14:48:00 EDT, Height, 100.5, kg, 05/30/19 9:39:00 EDT, Dry Weight Start Date: 12/16/20 Stop Date: 04/15/21 Status: Ordered lisinopril 40 mg oral tablet 1 tablet = 40 mg, By Mouth, Daily, # 90 tablet, 4 Refills, Maintenance, 02/03/20 12:39:00 EDT, Tablet, [facility] #[id number], 170, cm, 12/16/19 10:11:00 EST, Height, 100.5, [...] mL, 1 Refills, Maintenance, 12/17/20 13:06:00 EST, [facility] #[id number], 170, cm, 05/20/2014:48:00 EDT, Height, 100.5, kg, 05/30/19 9:39:00 E... Start Date: 12/17/20 Status: Ordered OXcarbazepine 300 mg oral tablet TK 1 T PO BID Start Date: 01/29/19 Status: Ordered PARoxetine 40 mg oral tablet TK 1 T PO HS Start Date: 01/29/19 Status: Ordered Pen [place], 31 G x 5 mm BD Ultra [...] 1 Refills, Maintenance, 12/21/20 10:40:00 EST, Tablet, [facility] #[id number], Partial fill upon patient request if the [...] 0 Refills, Maintenance, 05/20/20 15:09:00 EDT, Ointment, [facility] #[id number], 1 application Topically 2 times a day,x14 days,Instr:apply a thin film; to aff... Start Date: 05/20/20 Stop Date: 06/03/20 Status: Ordered Trulicity Pen 0.75 mg/0.5 mL subcutaneous solution 0.5 mL = 0.75 mg, Subcutaneous Injection, Every week, rotate injection sites, # 2 mL, 2 Refills, Maintenance, 01/03/21 13:20:00 EST, Solution, [facility] #[id number], Partial fill upon patient request if the prescription is for a schedule II opio... Start Date: 01/03/21 Status: Ordered Trulicity Pen 1.5 mg/0.5 mL subcutaneous solution 0.5 mL = 1.5 mg, Subcutaneous Injection, Every week, # 2.5 mL, 5 Refills, Maintenance, 01/25/21 8:56:00 EDT, Solution, [facility] #[id number], 170, cm, 05/20/20 14:48:00 EDT, Height, 100.5, [...] Microalbuminuria(Confirmed) Active Morbid obesity(Confirmed) Active BHN/KELVIN/AUDRA-Mignon Peters [phone]/[facility] active care coordination(Confirmed) Active Peripheral vascular disease(Confirmed) Active Umbilical hernia(Confirmed) Active 1per 2017 and 2018 [facility] notes Social History Social History Type Response Smoking Status Never (less than 100 in lifetime) entered on: 09/03/19 Sex Female 1per pt
--- OUTSIDE RECORDS SUMMARY | 2023-02-20 15:18 | XMS_ITS | Continuity of Care Document ---
Author Name Unknown Organization [facility] Address [address] [place] [address]- Care Team Providers Care Automobile Repair Service Estimator Name Role Phone Josef MOSHRE, Mamie Patterson Primary Care Physician [phone] Encounter [facility] ACCT R [id number] Date(s): 07/28/21 - 09/10/21 [facility] [address] [place] [address]- Attending Physician: Arlette Galloway NP Admitting Physician: [...] Note: VIS GIVEN-DATED 05/30/11 2Result Comment: LOT [id number] EXP 04 MAY 2010 3Admin Note: VIS [...] 11 Refills, Maintenance, 07/18/21 15:05:00 EDT, Powder, [facility] Patient Lost her inhailer, Will need [...] 07/20/21 9:24:00 EDT, Route to Pharmacy Electronically, [facility] #[id number], 170, cm, 07/20/21 8:57:00 EDT, Height Start Date: 07/20/21 Stop Date: 10/13/22 Status: Ordered atorvastatin 10 mg oral tablet 1 tablet = 10 mg, By Mouth, Daily, # 90 tablet, 1 Refills, Maintenance, 05/05/21 10:09:00 EDT, [facility] #[id number], 170, cm, 12/21/20 9:18:00 EST, Height, 100.5, [...] 07/20/21 9:33:00 EDT, Route to Pharmacy Electronically, [facility] #[id number], Partial fill upon patient request if the prescription is for a schedule II opi... Start Date: 07/20/21 Stop Date: 10/18/21 Status: Ordered insulin glargine 100 units/mL subcutaneous solution See Instructions, Subcutaneous Infusion Daily 45 units sc twice daily dx E11.9, # 12 mL, 11 Refills, Maintenance, 07/28/21 11:33:00 EDT, [facility], Partial fill upon patient request if [...] tablet, 11 Refills, Maintenance, 06/21/21 14:39:00 EDT, [facility] #[id number], 170, cm, 05/20/21 15:42:00 EDT, Height Start Date: 06/21/21 Status: Ordered lisinopril 40 mg oral tablet 1 tablet = 40 mg, By Mouth, Daily, # 90 tablet, 4 Refills, Maintenance, 07/20/21 9:25:00 EDT, Tablet, [facility] #[id number], 170, cm, 07/20/21 8:57:00 EDT, Height Start Date: 07/20/21 Stop Date: 10/13/22 Status: Ordered Melatonin 5 mg oral tablet 0 Refills, Maintenance, 01/29/19 10:09:09 EDT Start Date: 01/29/19 Status: Ordered NovoLOG 100 units/mL subcutaneous solution See Instructions, 28 units Subcutaneous Infusion 3 times a day before meals dxE11.9, # 48 mL, 11 Refills, Maintenance, 08/26/21 13:13:00 EDT, [facility], Partial fill upon patient request if the prescription is for a schedule II opioid... Start Date: 08/26/21 Status: Ordered OXcarbazepine 300 mg oral tablet TK 1 T PO BID Start Date: 01/29/19 Status: Ordered PARoxetine 40 mg oral tablet TK 1 T PO HS Start Date: 01/29/19 Status: Ordered Pen [place], 31 G x 5 mm BD Ultra Fine III See Instructions, # 150 each, Refills 11, Tot. Refills 11, Maintenance, use to inject insulin up tofive times daily dx e11.9, 10/21/20 15:55:00 EST, Supply, 170, cm, 05/20/20 14:48:00 EDT, Height, 100.5, kg, 05/30/19 9:39:00 EDT, Dry Weight Start Date: 10/21/20 Status: Ordered Pen [place], 31 G x 5 mm BD Ultra [...] 11 Refills, Maintenance, 07/18/21 15:06:00 EDT, Aerosol, [facility] Partial fill upon patient request if [...] 11 Refills, Maintenance, 07/28/21 10:54:00 EDT, Solution, [facility]., Partial fill upon patient request if [...] Hypertension(Confirmed) Active Microalbuminuria(Confirmed) Active Morbid obesity(Confirmed) Active BHN/KELVIN/Luis Felipe Peters [phone]/[facility] active care coordination(Confirmed) Active Peripheral vascular disease(Confirmed) Active Umbilical hernia(Confirmed) Active 1per 2016 and 2018 [facility] notes Social History Social History Type Response Smoking Status Never (less than 100 in lifetime) entered on: 09/03/19 Sex Female 1per pt
--- OUTSIDE RECORDS SUMMARY | 2023-02-20 15:18 | XMS_ITS | Continuity of Care Document ---
Author Name Unknown Organization [facility] Address [address] [place] [address]- Care Team Providers Care Recruiting Coordinator Name Role Phone Allegra Aguayo MD Primary Care Physician [phone] Encounter [facility] Date(s): 10/16/22 - 11/15/22 [facility] [address] [place] [address]- Allergies, Adverse Reactions, Alerts Substance Reaction Severity Status ibuprofen ABD PAIN Active morphine Vomiting and itchy Active traMADol Itchy, Hives Active Immunizations Given and Recorded Vaccine Date Status Refusal Reason SARS-CoV-2 mRNA ([id number]) vax 02/22/22 Recorded SARS-CoV-2 (COVID-19) mRNA BNT-162b2 [...] Note: VIS GIVEN-DATED 05/30/11 2Result Comment: LOT [id number] EXP 04 MAY 2010 3Admin Note: VIS [...] 05/01/22 12:34:00 EDT, Lotion, [facility]/pharmacy #[id number], Partial fill upon patient request if the prescription is for a schedule II opioid drug., 1 application Topically 2 times a da... Start Date: 05/01/22 Stop Date: 05/31/22 Status: Ordered aspirin 81 mg oral delayed release tablet 81 mg, By Mouth, Daily, # 30 tablet, Refills 0, Tot. Refills 0, Maintenance, 11/09/22 16:40:00 EST,Route to Pharmacy Electronically, [facility]/pharmacy #[id number], Partial fill upon patient request if [...] Route to Pharmacy Electronically, [facility]/pharmacy #[id number], Partial fill upon patient request if the pres... Start Date: 07/26/22 Stop Date: 01/22/23 Status: Ordered carvedilol 25 mg oral tablet 25 mg, 1, tablet, By Mouth, 2 times a day, # 60 tablet, Refills 2, Tot. Refills 2, Maintenance, 01/22/23 16:13:00 EDT, Route to Pharmacy Electronically, [facility]/pharmacy #[id number], Partial fill upon patient request if the prescription is for a schedule II opi... Start Date: 01/22/23 Stop Date: 04/22/23 Status: Ordered Colace sodium 100 mg oral capsule 100 mg, 1, capsule, By Mouth, 2 times a day, PRN, # 60 capsule, Refills 0, Tot. Refills 0, Maintenance, for constipation, 05/12/22 14:30:00 EDT, Route to Pharmacy Electronically, [facility] [...] 09/21/22 11:57:00 EST, Tablet, [facility]/pharmacy #[id number], Partial fill upon patient request if [...] 10/16/22 10:25:00 EST, Route to Pharmacy Electronically, [facility] #[id number], Partial fill upon patientrequest if the prescription [...] 10/16/22 8:19:00 EST, Solution, [facility]/pharmacy #[id number], Partial fill upon patient request if [...] Route to Pharmacy Electronically, [facility]/pharmacy #[id number], Partial fillupon patient request if the prescription is for a s... Start Date: 09/20/22 Status: Ordered levoFLOXacin 250 mg oral tablet 1 tablet = 250 mg, By Mouth, Every 24 hours, # 14 tablet, 0 Refills, Maintenance, 09/20/22 11:28:00EST, Tablet, [facility]/pharmacy #[id number], Partial fill upon patient request if the prescription is for a schedule II opioid drug., 169, cm, 09/20/22 9:22:00 EST... Start Date: 09/20/22 Stop Date: 10/04/22 Status: Ordered lisinopril 10 mg oral tablet 10 mg, 1, tablet, By Mouth, Daily, # 90 tablet, Refills 1, Tot. Refills 1, Maintenance, 10/16/22 10:24:00 EST, Route to Pharmacy Electronically, [facility] #[id number], Partial fill upon patientrequest if the prescription is for a schedule II op... Start Date: 10/16/22 Stop Date: 04/14/23 Status: Ordered NovoLOG FlexPen 100 units/mL injectable solution = 20 units, Subcutaneous Injection, 3 times a day before meals, INJECT 20 UNITS INTO SKIN THREE TIMES DAILY BEFORE A MEAL, # 15 mL, 10 Refills, Maintenance, 08/01/22 16:09:00 EDT, [facility], 169, cm, 08/01/22 14:14:00 EDT, [...] 10/16/22 13:14:00 EST, Solution, [facility]/pharmacy #[id number], Partial fill upon patient request if the prescription is for a schedule II opioid drug., 169, cm, 10/09/22 8:39... Start Date: 10/16/22 Status: Ordered Ventolin HFA 108 mcg/inh inhalation aerosol with adapter 1 puffs, Inhalation, Every 4 hours, PRN NEEDED FOR WHEEZING, # 18 Gm, 0 Refills, Maintenance, 11/02/22 8:15:00 EST, [facility] #[id number], 169, cm, 11/01/22 11:21:00 EST, Height, 103.42, [...] Active Morbid obesity Confirmed Active BHN/CCA/CP- Angle [phone] [facility] active care coordination Confirmed Active Peripheral vascular disease - right SFA angioplasty/right great toe amputation 2021 Confirmed Active Severe obesity (BMI 35.0-39.9) with comorbidity Confirmed Active Umbilical hernia Confirmed Active 1per 2017 and 2019 [facility] notes Social History Social History Type Response Smoking Status Never (less than 100 in lifetime) entered on: 09/03/19 Sex 1per pt Patient Care team information Care Team Personnel Name: Allegra Aguayo MD Position: [facility] Resident Member Role: PCP Address: Address: [address] [place] [id number] Name: Vera Locke RN Position: S RN [...] Persons Name: MIKEY SEAY Address: home [address] [address] Name: MIKEY AYALA Address: home [address] [place] [address] Name: TANIA COPPOLA Address: home [address] [place] [address] Name: TANIA MUÑIZ Address: home [address] [place] [address]
--- OUTSIDE RECORDS SUMMARY | 2023-02-20 15:18 | XMS_ITS | Continuity of Care Document ---
Author Name Unknown Organization [facility] Address [address] [place] [address]- Care Team Providers Care Machine Biller Name Role Phone Olivier MOSHER, Allegra Primary Care Physician Encounter [facility] Date(s): 10/04/22 - 11/03/22 [facility] [address] [place], [place] [address] Allergies, Adverse Reactions, Alerts Substance Reaction Severity Status ibuprofen ABD PAIN Active morphine Vomiting and itchy Active traMADol Itchy, Hives Active Immunizations Given and Recorded Vaccine Date Status Refusal Reason SARS-CoV-2 mRNA ([id number]) vax 02/22/22 Recorded SARS-CoV-2 (COVID-19) mRNA BNT-162b2 [...] Note: VIS GIVEN-DATED 05/30/11 2Result Comment: LOT [id number] EXP 04 MAY 2010 3Admin Note: VIS [...] 05/13/22 16:40:00 EDT, Route to Pharmacy Electronically, [facility], Partial fill upon patient request if the prescription is... Start Date: 05/13/22 Stop Date: 11/09/22 Status: Ordered aspirin 81 mg oral delayed release tablet 81 mg, By Mouth, Daily, # 30 tablet, Refills 0, Tot. Refills 0, Maintenance, 11/09/22 16:40:00 EST,Route to Pharmacy Electronically, [facility] [...] 10/16/22 10:25:00 EST, Route to Pharmacy Electronically, [facility] #[id number], Partial fill upon patientrequest if the prescription [...] Soft Stop, 10/16/22 8:19:00 EST, Solution, [facility] [...] 11:19:00 EST, Route to Pharmacy Electronically, [facility]/pharmacy #[id number], Partial fillupon patient request [...] 10/16/22 10:24:00 EST, Route to Pharmacy Electronically, [facility] #[id number], Partial fill upon patientrequest if the prescription is for a schedule II op... Start Date: 10/16/22 Stop Date: 04/14/23 Status: Ordered NovoLOG FlexPen 100 units/mL injectable solution = 20 units, Subcutaneous Injection, 3 times a day before meals, INJECT 20 UNITS INTO SKIN THREE TIMES DAILY BEFORE A MEAL, # 15 mL, 10 Refills, Maintenance, 08/01/22 16:09:00 EDT, [facility] 169, cm, 08/01/22 14:14:00 EDT, Height, [...] Acute 11/15/22 10:46:00 EST, 11/01/22 10:46:00 EST, [facility]/pharmacy [...] Gm, 0 Refills, Maintenance, 11/02/22 8:15:00 EST, [facility] #[id number], 169, cm, 11/01/22 11:21:00 EST, Height, 103.42, [...] Active Morbid obesity Confirmed Active BHN/CCA/CP- Angle [phone] long term active care coordination Confirmed Active Peripheral vascular disease - right SFA angioplasty/right great toe amputation 2021 Confirmed Active Severe obesity (BMI 35.0-39.9) with comorbidity Confirmed Active Umbilical hernia Confirmed Active 1per 2016 and 2018 [facility] notes Social History Social History Type Response Smoking Status Never (less than 100 in lifetime) entered on: 09/03/19 Sex 1per pt Patient Care team information Care Team Personnel Name: Allegra Aguayo MD Position: [facility] Resident Member Role: PCP Address: Address: [address] [place] [address] Name: Vera Locke RN Position: S [...] Persons Name: MIKEY SEAY Address: home [address] [address] Name: MIKEY AYALA Address: [address] [place] [address] Name: TANIA COPPOLA Address: home [address] [place] [id number] Name: TANIA MUÑIZ Address: home [address] [place] [address]
--- OUTSIDE RECORDS SUMMARY | 2023-02-20 15:19 | XMS_ITS | Continuity of Care Document ---
Author Name Unknown Organization [facility] Address [address] [place] [address]- Care Team Providers Care Elevator Conductor Name Role Phone Josef MOSHER, Mamie Patterson Primary Care Physician Encounter [facility] Date(s): 03/02/22 - 04/01/22 [facility] [address] [place], [place] [address] Allergies, Adverse Reactions, Alerts Substance Reaction Severity Status ibuprofen ABD PAIN Active morphine Vomiting and itchy Active traMADol Itchy, Hives Active Immunizations Given and Recorded Vaccine Date Status Refusal Reason SARS-CoV-2 mRNA ([id number]) vax 02/22/22 Recorded SARS-CoV-2 (COVID-19) mRNA BNT-162b2 [...] Note: VIS GIVEN-DATED 05/30/11 2Result Comment: LOT [id number] EXP 04 MAY 2010 3Admin Note: VIS [...] 03/10/22 9:04:00 EDT, Route to Pharmacy Electronically, [email or web address] #[id number], Partial fill upon patient request if the prescription is for a schedule II opi... Start Date: 03/10/22 Status: Ordered atorvastatin 10 mg oral tablet 1 tablet, By Mouth, Daily, # 90 tablet, 1 Refills, Maintenance, 12/13/21 19:21:00 EST, [email or web address] #[id number], 170, cm, 07/28/21 10:50:00 EDT, Height Start [...] 03/16/22 14:30:00 EDT, Route to Pharmacy Electronically, [facility], Partial fill upon patient request [...] 0 Refills, Maintenance, 03/16/22 14:35:00 EDT, Capsule, [facility], Partial fill upon patient request if the prescription is for a schedule II opioid drug., 169, cm, 03/16/22 14:07:00... Start Date: 03/16/22 Status: Ordered insulin aspart 100 units/mL subcutaneous solution = 20 units, Subcutaneous Injection, 3 times a day before meals, # 10 mL, 11 Refills, Maintenance, 03/10/22 9:06:00 EDT, Solution, [facility] #[id number], Partial fill upon patient request if theprescription [...] tablet, 11 Refills, Maintenance, 03/09/22 14:23:00 EDT, [facility], resent - not recvd, 169, cm, 03/09/22 13:46:00 EDT, Height, 104.9, kg, 03/04/22 2:58:00 EDT, Dry Weight Start Date: 03/09/22 Status: Ordered Lantus 100 u/ml subcutaneous solution = 30 units, Subcutaneous Injection, 2 times a day, # 10 mL, 5 Refills, Maintenance, 03/10/22 9:05:00 EDT, Solution, [facility] #[id number], Partial fill upon patient request if the prescription is for a schedule II opioid drug., 169, cm, 03/09/22... Start Date: 03/10/22 Status: Ordered lisinopril 40 mg oral tablet 1 tablet = 40 mg, By Mouth, Daily, # 30 tablet, 5 Refills, Maintenance, 03/10/22 9:03:00 EDT, Tablet, [facility] #[id number], Partial fill upon patient request if the [...] Maintenance, 03/09/22 14:21:00 EDT, Gel, [facility]., Partial fill upon patient request [...] mL, 11 Refills, 03/09/22 14:22:00 EDT, [facility] 169, cm, 03/09/22 13:46:00 EDT, Height, 104.9, kg, 03/04/22 2:58:00 EDT, Dry Weight Start Date: 03/09/22 Status: Ordered Tylenol Extra Strength 500 mg oral tablet 2 tablet = 1,000 mg, By Mouth, Every 6 hours, prn pain, # 100 tablet, 0 Refills, Maintenance, 03/16/22 14:30:00 EDT, [facility] Partial fill upon patient request if the prescription is for a schedule II opioid drug., 169, cm, 03/16/22... Start Date: 03/16/22 Status: Ordered Ventolin HFA 108 mcg/inh inhalation aerosol with adapter 1 puffs, Inhalation, 4 times a day, PRN NEEDED FOR WHEEZING, # 18 Gm, 0 Refills, [facility] #[id number], 170, cm, 01/11/22 9:39:00 EST, Height Start [...] Active Obese class II(Confirmed) Active BHN/CCA/AUDRA-Mignon Peters [phone]/[facility] active care coordination(Confirmed) Active Peripheral vascular disease(Confirmed) Active Uncontrolled type 1 diabetes mellitus with hyperglycemia, with long-term current use of insulin(Confirmed) Active Umbilical hernia(Confirmed) Active 1per 2017 and 2019 [facility] notes Social History Social History Type Response Smoking Status Never (less than 100 in lifetime) entered on: 09/03/19 Sex 1per pt
--- OUTSIDE RECORDS SUMMARY | 2023-02-20 15:19 | XMS_ITS | Continuity of Care Document ---
Author Name Unknown Organization [facility] Address [address] [place] [address]- Care Team Providers Care Theater Set Production Designer Name Role Phone Tom Meagan GEORGES Primary Care Physici an Encounter [facility] Date(s): 02/03/20 - 02/10/20 [facility] [address] [place] [id number] Attending Physician: Janett MOSHER, Luis F Barnes Allergies, Adverse Reactions, Alerts Substance Reaction [...] Note: VIS GIVEN-DATED 05/30/11 2Result Comment: LOT [id number] EXP 04 MAY 2010 3Admin Note: VIS [...] 02/03/20 12:39:00 EDT, Route to Pharmacy Electronically, [facility] #[id number], 170, cm, 12/16/19 10:11:00 EST, Height, 100.5, [...] 03/06/19 17:12:53 EDT, Route to Pharmacy Electronically, [id number], [facility] [id number] Start Date: 03/06/19 Status: Ordered insulin glargine 100 u/ml subcutaneous solution See Instructions, 40 units in the MORNING and 40 units AT BEDTIME Subcutaneous Injection dx E11.9 Rotate injection sites, # 60 mL, 1 Refills, Maintenance, 02/09/20 16:59:00 EDT, Solution, [facility] #[id number], 170, cm, 12/16/19 10:11:00 EST,... Start Date: 02/09/20 Status: Ordered Insulin Syringe, BD Ultra-Fine 0.5 cc 31 G x 8 mm (5/16in) See Instructions, # 150 each, Refills 11, Tot. Refills 11, Maintenance, use as directed for Type 2 Diabetes Mellitus to admisiter insulin four times a day. Dx; E11.9, 05/13/19 13:22:55 EDT, pt was transferred to [facility], all meds left beh... Start Date: 05/13/19 Stop Date: 05/07/20 Status: Ordered lisinopril 40 mg oral tablet 1 tablet = 40 mg, By Mouth, Daily, # 90 tablet, 4 Refills, Maintenance, 02/03/20 12:39:00 EDT, Tablet, [facility] #[id number], 170, cm, 12/16/19 10:11:00 EST, Height, 100.5, kg, 05/30/19 9:39:00EDT, Dry Weight Start Date: 02/03/20 Stop Date: 04/28/21 Status: Ordered Melatonin 5 mg oral tablet 0 Refills, Maintenance, 01/29/19 10:09:09 EDT Start Date: 01/29/19 Status: Ordered meloxicam 5 mg oral capsule 1 capsule = 5 mg, By Mouth, Daily, # 5 capsule, 0 Refills, Maintenance, 02/03/20 10:30:00 EDT, Capsule, [facility] #[id number], 170, cm, 12/16/19 10:11:00 EST, Height, 100.5, kg, 05/30/19 9:39:00 EDT, Dry Weight Start Date: 02/03/20 Stop Date: 02/08/20 Status: Ordered NovoLOG 100 units/mL injectable solution = 20 units, Subcutaneous Infusion, 3 times a day before meals, replaces humalog, # 50 mL, 1 Refills, Maintenance, 02/09/20 16:58:00 EDT, [facility] #[id number], 170, cm, 12/16/19 10:11:00 EST, Height, 100.5, kg, 05/30/19 9:39:00 EDT, Dry Weight Start Date: 02/09/20 Status: Ordered OXcarbazepine 300 mg oral tablet TK 1 T PO BID Start Date: 01/29/19 Status: Ordered PARoxetine 40 mg oral tablet TK 1 T PO HS Start Date: 01/29/19 Status: Ordered Pen Lemitar, 31 G x 5 mm BD Ultra [...] 5 Refills, Maintenance, 02/03/20 10:19:00 EDT, Solution, [facility] #[id number], 170, cm, 12/16/19 10:11:00 EST, Height, 100.5, [...] Umbilical hernia(Confirmed) Active 1per 2016 and 2018 [facility] notes Social History Social History Type Response Smoking Status Never (less than 100 in lifetime) entered on: 09/03/19 Sex Female 1per pt
--- OUTSIDE RECORDS SUMMARY | 2023-02-20 15:19 | XMS_ITS | Continuity of Care Document ---
Author Name Unknown Organization [facility] Address [address] [place] [address]- Care Team Providers Care Assistant Editor Name Role Phone Allegra Aguayo MD Primary Care Physician [phone] Encounter [facility] Date(s): 11/01/22 - 12/01/[address] [address]- Allergies, Adverse Reactions, Alerts Substance Reaction Severity Status ibuprofen ABD PAIN Active morphine Vomiting and itchy Active traMADol Itchy, Hives Active Immunizations Given and Recorded Vaccine Date Status Refusal Reason SARS-CoV-2 mRNA ([id number]) vax 02/22/22 Recorded SARS-CoV-2 (COVID-19) mRNA BNT-162b2 [...] Note: VIS GIVEN-DATED 05/30/11 2Result Comment: LOT [id number] EXP 04 MAY 2010 3Admin Note: VIS [...] 04/24/22 9:05:00 EDT, Route to Pharmacy Electronically, [facility], Partial fill upon patient request if the prescription is for a schedule II opio... Start Date: 04/24/22 Status: Ordered ammonium lactate 5% topical lotion 1 application, Topically, 2 times a day, # 240 Gm, 0 Refills, Maintenance, 05/01/22 12:34:00 EDT, Lotion, [facility]/pharmacy #[id number], Partial fill upon patient request if the prescription is for a schedule II opioid drug., 1 application Topically 2 times a da... Start Date: 05/01/22 Stop Date: 05/31/22 Status: Ordered aspirin 81 mg oral delayed release tablet 81 mg, By Mouth, Daily, # 30 tablet, Refills 0, Tot. Refills 0, Maintenance, 11/09/22 16:40:00 EST,Route to Pharmacy Electronically, [facility]/pharmacy #[id number], Partial fill upon patient request if the prescription is for a schedule II opioid drug., 169, cm,... Start Date: 11/09/22 Stop Date: 12/09/22 Status: Ordered atorvastatin 40 mg oral tablet 1 tablet = 40 mg, By Mouth, Daily, # 90 tablet, 2 Refills, Maintenance, 04/24/22 9:41:00 EDT, Tablet, [facility], Partial fill upon patient request [...] 07/26/22 16:13:00 EDT, Route to Pharmacy Electronically, [facility]/pharmacy #[id number], Partial fill upon patient request if the pres... Start Date: 07/26/22 Stop Date: 01/22/23 Status: Ordered carvedilol 25 mg oral tablet 25 mg, 1, tablet, By Mouth, 2 times a day, # 60 tablet, Refills 2, Tot. Refills 2, Maintenance, 01/22/23 16:13:00 EDT, Route to Pharmacy Electronically, [facility]/pharmacy #[id number], Partial fill upon patient request if the prescription is for a schedule II opi... Start Date: 01/22/23 Stop Date: 04/22/23 Status: Ordered Colace sodium 100 mg oral capsule 100 mg, 1, capsule, By Mouth, 2 times a day, PRN, # 60 capsule, Refills 0, Tot. Refills 0, Maintenance, for constipation, 03/16/22 14:30:00 EDT, Route to Pharmacy Electronically, [facility], Partial fill upon patient request [...] 0 Refills, Maintenance, 09/21/22 11:57:00 EST, Tablet, [facility]/pharmacy #[id number], Partial fill upon patient [...] 10/16/22 10:25:00 EST, Route to Pharmacy Electronically, [facility] #[id number], Partial fill upon patientrequest if the prescription [...] 09/20/22 11:19:00 EST, Route to Pharmacy Electronically, [facility]/pharmacy #[id number], Partial fillupon patient request if the prescription is for a s... Start Date: 09/20/22 Status: Ordered levoFLOXacin 250 mg oral tablet 1 tablet = 250 mg, By Mouth, Every 24 hours, # 14 tablet, 0 Refills, Maintenance, 09/20/22 11:28:00EST, Tablet, [facility]/pharmacy #[id number], Partial fill upon patient request if the prescription is for a schedule II opioid drug., 169, cm, 09/20/22 9:22:00 EST... Start Date: 09/20/22 Stop Date: 10/04/22 Status: Ordered lisinopril 10 mg oral tablet 10 mg, 1, tablet, By Mouth, Daily, # 90 tablet, Refills 0, Tot. Refills 0, Maintenance, 11/30/22 8:10:00 EST, Route to Pharmacy Electronically, [facility]/pharmacy #[id number], Partial fill upon patient [...] 04/24/22 9:03:00 EDT, Route to Pharmacy Electronically, [facility], Partial fill upon patient request [...] Gm, 0 Refills, Maintenance, 11/02/22 8:15:00 EST, [facility] #[id number], 169, cm, 11/01/22 11:21:00 EST, Height, 103.42, [...] Active Morbid obesity Confirmed Active BHN/CCA/CP- Angle [phone] mcc active care coordination Confirmed Active Peripheral [...] S Resident Member Role: PCP Address: Address: [address] [place] [address]- Name: Vera Locke RN Position: S RN [...] Care Nurse Name: Mis Vences RN Position: [facility] RN Member Role: Primary Care Nurse Name: Angie Lopez RN Position: S RN Member Role: Primary Care Nurse Name: Lizzie Estrada RN Position: [facility] RN Member Role: Primary Care Nurse Care Team Related Persons Name: MIKEY SEAY Address: home [address] [address] Name: MIKEY AYALA Address: home [address] [place] [address] Name: TANIA COPPOLA Address: home [address] [place] [address] Name: TANIA MUÑIZ Address: home [address] [place] [address]
--- OUTSIDE RECORDS SUMMARY | 2023-02-20 15:19 | XMS_ITS | Continuity of Care Document ---
Author Name Unknown Organization [facility] Address [address] [place] [address]- Care Team Providers Care Financial Institution Manager Name Role Phone Josef MOSHER, Mamie Patterson Primary Care Physician Encounter [facility] [place] Date(s): 12/19/21 - 01/21/22 [facility] [address] [place] [address]- Attending Physician: Not on Staff, Attending MD [...] Note: VIS GIVEN-DATED 05/30/11 2Result Comment: LOT [id number] EXP 04 MAY 2010 3Admin Note: VIS [...] 12/29/21 10:02:00 EST, Route to Pharmacy Electronically, [facility] #[id number], 170, cm, 07/28/21 10:50:00 EDT, Height Start Date: 12/29/21 Stop Date: 03/24/23 Status: Ordered atorvastatin 10 mg oral tablet 1 tablet, By Mouth, Daily, # 90 tablet, 1 Refills, Maintenance, 12/13/21 19:21:00 EST, [facility] #[id number], 170, cm, 07/28/21 10:50:00 EDT, Height Start [...] 12/29/21 10:02:00 EST, Route to Pharmacy Electronically, [facility] #[id number], Partial fill upon patientrequest if the prescription [...] tablet, 11 Refills, Maintenance, 12/29/21 10:02:00 EST, [facility] #[id number], resent - not recvd, 170, cm, 07/28/21 10:50:00 EDT, Height Start Date: 12/29/21 Status: Ordered Lantus 100 u/ml subcutaneous solution = 45 units, Subcutaneous Infusion, 2 times a day, changed from PEN, pt requesting vials, # 12 mL, 11 Refills, Maintenance, 01/11/22 9:45:00 EST, [facility] #[id number], Partial fill upon patientrequest if the prescription is for a schedule II op... Start Date: 01/11/22 Status: Ordered lidocaine 5% topical ointment 1 application, Topically, 3 times a day, wash hands thoroughly after application, prn pain, # 50 Gm, 0 Refills, Maintenance, 01/11/22 9:49:00 EST, Ointment, [facility] #[id number], Partial fill upon patient request if the prescription is for a sc... Start Date: 01/11/22 Status: Ordered lisinopril 40 mg oral tablet 1 tablet = 40 mg, By Mouth, Daily, # 90 tablet, 4 Refills, Maintenance, 07/20/21 9:25:00 EDT, Tablet, [facility] #[id number], 170, cm, 07/20/21 8:57:00 EDT, Height Start Date: 07/20/21 Stop Date: 10/13/22 Status: Ordered NovoLOG 100 units/mL injectable solution See Instructions, ADMINISTER 20 UNITS UNDER THE SKIN THREE TIMES DAILY BEFORE MEALS 90 DAY SUPPLY REQUESTED, # 30 mL, 2 Refills, [facility] #[id number], 170, cm, 07/28/21 10:50:00 EDT, Height Start [...] INJECTION SITES, # 2 mL, 0 Refills, [facility] #[id number], 170, cm, 07/28/21 10:50:00 EDT, Height Start Date: 01/10/22 Status: Ordered Ventolin HFA 108 mcg/inh inhalation aerosol with adapter 1 puffs, Inhalation, 4 times a day, PRN NEEDED FOR WHEEZING, # 18 Gm, 0 Refills, [facility] #[id number], 170, cm, 01/11/22 9:39:00 EST, Height Start [...] Active Obese class I(Confirmed) Active BHN/CCA/AUDRA-Mignon Peters [phone][facility] active care coordination(Confirmed) Active Peripheral vascular disease(Confirmed) Active Umbilical hernia(Confirmed) Active 1per 2017 and 2019 [facility] notes Social History Social History Type Response Smoking Status Never (less than 100 in lifetime) entered on: 09/03/19 Sex Female 1per pt
--- OUTSIDE RECORDS SUMMARY | 2023-02-20 15:19 | XMS_ITS | Continuity of Care Document ---
Author Name Unknown Organization [facility] Address [address] [place] [address]- Care Team Providers Care Foundation Drill Operator Name Role Phone Josef MOSHER, Mamie Patterson Primary Care Physician [phone] Encounter [facility] Date(s): 11/07/21 - 12/07/21 [facility] [address] [place], [place] [address] Allergies, Adverse Reactions, Alerts Substance Reaction Severity [...] Note: VIS GIVEN-DATED 05/30/11 2Result Comment: LOT [id number] EXP 04 MAY 2010 3Admin Note: VIS [...] 07/20/21 9:24:00 EDT, Route to Pharmacy Electronically, [facility] #[id number], 170, cm, 07/20/21 8:57:00 EDT, Height Start Date: 07/20/21 Stop Date: 10/13/22 Status: Ordered atorvastatin 10 mg oral tablet 1 tablet = 10 mg, By Mouth, Daily, # 90 tablet, 1 Refills, Maintenance, 05/05/21 10:09:00 EDT, [facility] #[id number], 170, cm, 12/21/20 9:18:00 EST, Height, 100.5, [...] 07/20/21 9:33:00 EDT, Route to Pharmacy Electronically, [facility] #[id number], Partial fill upon patient request if the [...] tablet, 11 Refills, Maintenance, 10/24/21 9:05:00 EST, [facility]., 170, cm, 07/28/21 10:50:00 EDT, Height Start Date: 10/24/21 Status: Ordered Januvia 50 mg oral tablet 1 tablet = 50 mg, By Mouth, Daily, dose decreased, # 30 tablet, 11 Refills, Maintenance, 09/20/21 13:40:00 EST, Tablet, [facility] #[id number], Partial fill upon patient request if the prescription is for a schedule II opioid drug., 170, cm, 07/07... Start Date: 09/20/21 Status: Ordered Lantus Solostar Pen 100 units/mL subcutaneous solution See Instructions, INJECT 45 UNITS UNDER THE SKIN TWICE DAILY., # 24 mL, 0 Refills, 10/21/21 7:36:00EST, [facility] #[id number], dose increase since 07/26, 170, cm, 07/28/21 10:50:00 EDT, Height Start Date: 10/21/21 Status: Ordered lisinopril 40 mg oral tablet 1 tablet = 40 mg, By Mouth, Daily, # 90 tablet, 4 Refills, Maintenance, 07/20/21 9:25:00 EDT, Tablet, [facility] #[id number], 170, cm, 07/20/21 8:57:00 EDT, Height Start Date: 07/20/21 Stop Date: 10/13/22 Status: Ordered Melatonin 5 mg oral tablet 0 Refills, Maintenance, 01/29/19 10:09:09 EDT Start Date: 01/29/19 Status: Ordered NovoLOG 100 units/mL subcutaneous solution See Instructions, 28 units Subcutaneous Infusion 3 times a day before meals dxE11.9, # 48 mL, 11 Refills, Maintenance, 08/26/21 13:13:00 EDT, [facility] Partial fill upon patient request if the prescription is for a schedule II opioid... Start Date: 08/26/21 Status: Ordered OXcarbazepine 300 mg oral tablet TK 1 T PO BID Start Date: 01/29/19 Status: Ordered PARoxetine 40 mg oral tablet TK 1 T PO HS Start Date: 01/29/19 Status: Ordered Pen Wendell, 31 G x 5 mm BD Ultra Fine III See Instructions, # 150 each, Refills 11, Tot. Refills 11, Maintenance, use to inject insulin up tofive times daily dx e11.9, 10/21/20 15:55:00 EST, Supply, 170, cm, 05/20/20 14:48:00 EDT, Height, 100.5, kg, 05/30/19 9:39:00 EDT, Dry Weight Start Date: 10/21/20 Status: Ordered Pen Wendell, 31 G x 5 mm BD Ultra [...] FOR 14 DAYS, # 15 Gm, 0 Refills,[facility] #[id number], 14, APPLY TOPICALLY TO THE AFFECTED AREA TWICE DAILY FOR 14 DAYS, 170,cm, 07/28/21 10:50:00 EDT, Height Start Date: 11/02/21 Status: Ordered Trulicity Pen 3 mg/0.5 mL subcutaneous solution 0.5 mL = 3 mg, Subcutaneous Injection, Every week, rotate injection sites, # 2 mL, 0 Refills, Maintenance, 11/30/21 14:02:00 EST, Solution, [facility] #[id number], Partial fill upon patient request if the prescription is for a schedule II opioid... Start Date: 11/30/21 Status: Ordered Ventolin HFA 108 mcg/inh inhalation aerosol with adapter 1 puffs, Inhalation, 4 times a day, PRN for wheezing, # 8 Gm, 2 Refills, Maintenance, 09/22/21 11:41:00 EST, Aerosol, [facility] #[id number], Partial fill upon patient request if the [...] Microalbuminuria(Confirmed) Active Morbid obesity(Confirmed) Active BHN/CCA/AUDRA-Mignon Peters [phone]/Health shelter active care coordination(Confirmed) Active Peripheral vascular disease(Confirmed) Active Umbilical hernia(Confirmed) Active 1per 2016 and 2018 [facility] notes Social History Social History Type Response Smoking Status Never (less than 100 in lifetime) entered on: 09/03/19 Sex Female 1per pt
--- OUTSIDE RECORDS SUMMARY | 2023-02-20 15:19 | XMS_ITS | Continuity of Care Document ---
Author Name Unknown Organization [facility] Address [address] [place] [address]- Care Team Providers Care Appeals Referee Name Role Phone Olivier MOSHER, Allegra Primary Care Physician [place] [facility](s): 10/16/22 - 01/19/23 [facility] [address] [place] [address]- Attending Physician: Aditi Gay MD Admitting Physician: Victor Hugo MOSHER, Aditi Kilgore Allergies, Adverse Reactions, Alerts Substance Reaction Severity Status ibuprofen ABD PAIN Active morphine Vomiting and itchy Active traMADol Itchy, Hives Active Immunizations Given and Recorded Vaccine Date Status Refusal Reason SARS-CoV-2 mRNA ([id number]) vax 02/22/22 Recorded SARS-CoV-2 (COVID-19) mRNA BNT-162b2 [...] Note: VIS GIVEN-DATED 05/30/11 2Result Comment: LOT [id number] EXP 04 MAY 2010 3Admin Note: VIS [...] 04/24/22 9:05:00 EDT, [facility] Partial fill upon patient request if the prescription is for a schedule II opio... Start Date: 04/24/22 Status: Ordered ammonium lactate 5% topical lotion 1 application, Topically, 2 times a day, # 240 Gm, 0 Refills, Maintenance, 05/01/22 12:34:00 EDT, Lotion, [facility]/pharmacy #[id number], Partial fill upon patient request if the prescription is for a schedule II opioid drug., 1 application Topically 2 times a da... Start Date: 05/01/22 Stop Date: 05/31/22 Status: Ordered aspirin 81 mg oral delayed release tablet 81 mg, By Mouth, Daily, # 30 tablet, Refills 2, Tot. Refills 2, Maintenance, 12/25/22 11:05:00 EST,Route to Pharmacy Electronically, [facility]/pharmacy #[id number], Partial fill upon patient request if the prescription is for a schedule II opioid drug., 169, cm,... Start Date: 12/25/22 Stop Date: 03/25/23 Status: Ordered atorvastatin 40 mg oral tablet 1 tablet = 40 mg, By Mouth, Daily, # 90 tablet, 2 Refills, Maintenance, 04/24/22 9:41:00 EDT, Tablet, [facility], Partial fill upon patient request if [...] 03/16/22 14:30:00 EDT, Route to Pharmacy Electronically, [facility], Partial fill upon patient request if [...] 10/16/22 10:25:00 EST, Route to Pharmacy Electronically, [facility] #[id number], Partial fill upon patientrequest if the prescription [...] each, 0 Refills, Maintenance, 01/03/23 15:48:00 EST, [facility]/pharmacy #[id number], Partial fill upon patient [...] 11/30/22 8:10:00 EST, Route to Pharmacy Electronically, [facility]/pharmacy [...] Refills, Maintenance, 11/28/22 13:29:00 EST, [facility]/pharmacy #[id number], Partial fill upon patient request if the prescription is for a schedule II opioid drug., 169,... Start Date: 11/28/22 Status: Ordered oxyCODONE 10 mg oral tablet 1 tablet = 10 mg, By Mouth, Every 12 hours, PRN Pain , Moderate, # 30 tablet, 0 Refills, Maintenance, 01/12/23 13:41:00 EST, [facility]/pharmacy #[id number], Partial fill upon patient request if the prescription is for a schedule II opioid drug., 169, cm, 11/28/22... Start Date: 01/12/23 Status: Ordered PARoxetine 40 mg oral tablet 40 mg, 1, tablet, By Mouth, Daily, Refills 0, Maintenance, 01/11/22 9:43:00 EST Start Date: 01/11/22 Status: Ordered Pen Spangler, 31 G x 5 mm BD Ultra [...] 04/24/22 9:03:00 EDT, Route to Pharmacy Electronically, [facility], Partial fill upon patient request if [...] Active Morbid obesity Confirmed Active BHN/CCA/CP- Angle [phone] custodial active care coordination Confirmed Active Peripheral vascular disease - right SFA angioplasty/right great toe amputation 2021 Confirmed Active Severe obesity (BMI 35.0-39.9) with comorbidity Confirmed Active Umbilical hernia Confirmed Active 1per 2017 and 2019 [facility] notes Social History Social History Type Response Smoking Status Never (less than 100 in lifetime) entered on: 09/03/19 Sex 1per pt Patient Care team information Care Team Personnel Name: Allegra Aguayo MD Position: [facility] Resident Member Role: PCP Address: Address: [address] [place] [id number] Name: Vera Locke RN Position: [facility] RN Member Role: Primary Care Nurse Name: Mauricio RNBaljit Position: [facility] ED RN W/OE and Tasks Member Role: Primary Care Nurse Name: Sabine Guthrie RN Position: [facility] RN Member Role: Primary Care Nurse Name: Aditi Hernandez RN Position: [facility] RN Member Role: Primary Care Nurse Name: Piyush Moore RN Position: [facility] RN Member Role: Primary Care Nurse Name: Mis Vences RN Position: [facility] RN Member Role: Primary Care Nurse Name: Angie Lopez RN Position: S RN Member Role: Primary Care Nurse Name: Lizzie Estrada RN Position: [facility] Onco RN Member Role: Primary Care Nurse Care Team Related Persons Name: MIKEY SEAY Address: home [address] [address] Name: MIKEY AYALA Address: home [address] [place] [address] Name: TANIA COPPOLA Address: home [address] [place] [id number] Name: TANIA MUÑIZ Address: home [address] [place] [address]
--- OUTSIDE RECORDS SUMMARY | 2023-02-20 15:19 | XMS_ITS | Continuity of Care Document ---
Author Name Unknown Organization [facility] Address [address] [place] [address]- Care Team Providers Care Brush Worker Name Role Phone Allegra Aguayo MD Primary Care Physician Encounter [facility] Date(s): 08/01/22 - 08/31/22 [facility] [address] [place] [address]- Encounter Diagnosis Diabetes type 2, uncontrolled(Final) - 03/23/22 Attending Physician: Admtr, Ar8 Allergies, Adverse Reactions, Alerts Substance Reaction Severity Status ibuprofen ABD PAIN Active morphine Vomiting and itchy Active traMADol Itchy, Hives Active Immunizations Given and Recorded Vaccine Date Status Refusal Reason SARS-CoV-2 mRNA ([id number]-synej) vax 02/22/22 Recorded SARS-CoV-2 (COVID-19) mRNA BNT-162b2 [...] Note: VIS GIVEN-DATED 05/30/11 2Result Comment: LOT [id number] EXP 04 MAY 2010 3Admin Note: VIS [...] 04/24/22 9:05:00 EDT, Route to Pharmacy Electronically, [facility], Partial fill upon patient request if the prescription is for a schedule II opio... Start Date: 04/24/22 Status: Ordered ammonium lactate 5% topical lotion 1 application, Topically, 2 times a day, # 240 Gm, 0 Refills, Maintenance, 05/01/22 12:34:00 EDT, Lotion, [facility]/pharmacy #[id number], Partial fill upon patient request if the prescription is for a schedule II opioid drug., 1 application Topically 2 times a da... Start Date: 05/01/22 Stop Date: 05/31/22 Status: Ordered aspirin 81 mg oral delayed release tablet 81 mg, By Mouth, Daily, # 30 tablet, Refills 5, Tot. Refills 5, Maintenance, 05/13/22 16:40:00 EDT,Route to Pharmacy Electronically, [facility]., Partial fill upon patient request if the prescription is for a schedule II opioid drug.,... Start Date: 05/13/22 Stop Date: 11/09/22 Status: Ordered atorvastatin 40 mg oral tablet 1 tablet = 40 mg, By Mouth, Daily, # 90 tablet, 2 Refills, Maintenance, 04/24/22 9:41:00 EDT, Tablet, [facility]., Partial fill upon patient request if [...] EDT, [id number] Partial fill upon patient request if the prescription is for a schedule II opi... Start Date: 07/26/22 Stop Date: 01/22/23 Status: Ordered Colace sodium 100 mg oral capsule 100 mg, 1, capsule, By Mouth, 2 times a day, PRN, # 60 capsule, Refills 0, Tot. Refills 0, Maintenance, for constipation, 03/16/22 14:30:00 EDT, Route to Pharmacy Electronically, [facility], Partial fill upon patient [...] 07/07/22 15:52:00 EDT, Route to Pharmacy Electronically, [facility], Partial fill upon patient [...] 6 Refills, Soft Stop, 08/01/22 16:09:00EDT, Solution, [facility], Partial fill upon patient request if the prescription isfor a schedule II opioid drug., 169, cm, 08/01/22 1... Start Date: 08/01/22 Stop Date: 04/22/24 Status: Ordered lisinopril 10 mg oral tablet 10 mg, 1, tablet, By Mouth, Daily, # 90 tablet, Refills 4, Tot. Refills 4, Maintenance, 07/12/22 10:12:00 EDT, Route to Pharmacy Electronically, [facility] #[id number], Partial fill upon patientrequest if the prescription is for a schedule II op... Start Date: 07/12/22 Stop Date: 10/05/23 Status: Ordered NovoLOG FlexPen 100 units/mL injectable solution = 20 units, Subcutaneous Injection, 3 times a day before meals, INJECT 20 UNITS INTO SKIN THREE TIMES DAILY BEFORE A MEAL, # 15 mL, 10 Refills, Maintenance, 08/01/22 16:09:00 EDT, [facility] 169, cm, 08/01/22 14:14:00 EDT, [...] Acute 09/11/22 16:30:00 EST, 08/28/22 16:30:00 EDT, [facility]/pharmacy #[id number], Partial fill upon patient request [...] 04/24/22 9:03:00 EDT, Route to Pharmacy Electronically, [facility], Partial fill upon patient request if the prescription is for a schedule II opio... Start Date: 04/24/22 Status: Ordered ProAir HFA 90 mcg/inh inhalation aerosol 1 puffs, Inhalation, Every 4 hours, PRN as needed for wheezing, # 18 Gm, 0 Refills, Maintenance, 04/18/22 9:51:00 EDT, Aerosol, [facility], Partial fill upon patient [...] 0 Refills, Maintenance, 03/09/22 14:21:00 EDT, Gel, [facility], Partial fill upon patient request if the p... Start Date: 03/09/22 Status: Ordered traZODone 300 mg oral tablet 1 tablet = 300 mg, By Mouth, Daily at bedtime Start Date: 03/03/22 Status: Ordered Trulicity Pen 4.5 mg/0.5 mL subcutaneous solution = 0.5 mL, Subcutaneous Injection, Every week, rotate injection sites, # 6 mL, 4 Refills, Maintenance, 07/19/22 10:42:00 EDT, Solution, [facility] #[id number], Partial fill upon patient request if the prescription is for a schedule II opioid drug.... Start Date: 07/19/22 Status: Ordered Tylenol 8 Hour 650 mg oral tablet, extended release 2 tablet = 1,300 mg, By Mouth, Every 8 hours, PRN as needed for pain, # 24 tablet, 0 Refills, Maintenance, 04/24/22 9:43:00 EDT, ER Tablet, [facility], Partial fill upon patient request if the prescription is for a schedule II opioid d... Start Date: 04/24/22 Status: Ordered Ventolin HFA 108 mcg/inh inhalation aerosol with adapter 2 puffs, Inhalation, Every 6 hours, PRN Wheezing/Shortness of Breath, # 8 Gm, 1 Refills, Maintenance, 05/30/22 10:56:00 EDT, [facility]., Partial fill upon patient request if [...] Obese class II Confirmed Active BHN/CCA/CP- Angle [id number] assisted active care coordination Confirmed Active Peripheral vascular disease Confirmed Active Umbilical hernia Confirmed Active 1per 2017 and 2019 [facility] notes Social History Social History Type Response Smoking Status Never (less than 100 in lifetime) entered on: 09/03/19 Sex 1per pt Patient Care team information Personnel Name: Allegra Aguayo MD Address: Address: [address] [place] [address]
--- OUTSIDE RECORDS SUMMARY | 2023-02-20 15:19 | XMS_ITS | Continuity of Care Document ---
Author Name Unknown Organization [facility] Address [address] [place] [address]- Care Team Providers Care Housing Installer Name Role Phone Arlette Galloway NP Primary Care Physician Encounter [facility] [place] Date(s): 04/15/20 - 05/15/20 [facility] [address] [place] [address]- [facility] Attending Physician: Satish Whittington Admitting Physician: AdmSatish mitchell Referring Physician: AdmtrSatish Allergies, Adverse Reactions, Alerts [...] Note: VIS GIVEN-DATED 05/30/11 2Result Comment: LOT [id number] EXP 04 MAY 2010 3Admin Note: VIS [...] 02/03/20 12:39:00 EDT, Route to Pharmacy Electronically, [facility] #[id number], 170, cm, 12/16/19 10:11:00 EST, Height, 100.5, [...] 03/06/19 17:12:53 EDT, Route to Pharmacy Electronically, [id number], [facility] [id number] Start Date: 03/06/19 Status: Ordered insulin glargine 100 u/ml subcutaneous solution See Instructions, 40 units in the MORNING and 40 units AT BEDTIME Subcutaneous Injection dx E11.9 Rotate injection sites, # 60 mL, 1 Refills, Maintenance, 02/09/20 16:59:00 EDT, Solution, [email or web address] #[id number], 170, cm, 12/16/19 10:11:00 EST,... Start Date: 02/09/20 Status: Ordered Insulin Syringe, BD Ultra-Fine 0.5 cc 31 G x 8 mm (5/16in) See Instructions, # 150 each, Refills 11, Tot. Refills 11, Maintenance, use as directed for Type 2 Diabetes Mellitus to admisiter insulin four times a day. Dx; E11.9, 05/13/19 13:22:55 EDT, pt was transferred to [facility], all meds left beh... Start Date: 05/13/19 Stop Date: 05/07/20 Status: Ordered Lantus 100 u/ml subcutaneous solution = 40 units, Subcutaneous Infusion, 2 times a day, # 15 mL, 11 Refills, Maintenance, 04/28/20 11:50:00 EDT, [email or web address] #[id number], 170, cm, 04/02/20 13:31:00 EDT, Height, 100.5, kg, 05/30/19 9:39:00 EDT, Dry Weight Start Date: 04/28/20 Stop Date: 04/23/21 Status: Ordered lisinopril 40 mg oral tablet 1 tablet = 40 mg, By Mouth, Daily, # 90 tablet, 4 Refills, Maintenance, 02/03/20 12:39:00 EDT, Tablet, [email or web address] #[id number], 170, cm, 12/16/19 10:11:00 EST, Height, 100.5, kg, 05/30/19 9:39:00EDT, Dry Weight Start Date: 02/03/20 Stop Date: 04/28/21 Status: Ordered Melatonin 5 mg oral tablet 0 Refills, Maintenance, 01/29/19 10:09:09 EDT Start Date: 01/29/19 Status: Ordered meloxicam 5 mg oral capsule 1 capsule = 5 mg, By Mouth, Daily, # 5 capsule, 0 Refills, Maintenance, 02/03/20 10:30:00 EDT, Capsule, [facility] #[id number], 170, cm, 12/16/19 10:11:00 EST, Height, 100.5, kg, 05/30/19 9:39:00 EDT, Dry Weight Start Date: 02/03/20 Stop Date: 02/08/20 Status: Ordered NovoLOG 100 units/mL injectable solution = 20 units, Subcutaneous Infusion, 3 times a day before meals, replaces humalog, # 50 mL, 1 Refills, Maintenance, 02/09/20 16:58:00 EDT, [email or web address] #[id number], 170, cm, 12/16/19 10:11:00 EST, Height, 100.5, kg, 05/30/19 9:39:00 EDT, Dry Weight Start Date: 02/09/20 Status: Ordered OXcarbazepine 300 mg oral tablet TK 1 T PO BID Start Date: 01/29/19 Status: Ordered PARoxetine 40 mg oral tablet TK 1 T PO HS Start Date: 01/29/19 Status: Ordered Pen [place], 31 G x 5 mm BD Ultra [...] 5 Refills, Maintenance, 02/03/20 10:19:00 EDT, Solution, [facility] #[id number], 170, cm, 12/16/19 10:11:00 EST, Height, 100.5, [...] Umbilical hernia(Confirmed) Active 1per 2017 and 2019 [facility] notes Social History Social History Type Response Smoking Status Never (less than 100 in lifetime) entered on: 09/03/19 Sex Female 1per pt
--- OUTSIDE RECORDS SUMMARY | 2023-02-20 15:19 | XMS_ITS | Continuity of Care Document ---
Author Name Unknown Organization [facility] Address [address] [place] [address]- Care Team Providers Care Production Administrative Assistant Name Role Phone Olivier MOSHER, Allegra Primary Care Physician [phone] Encounter [facility] Date(s): 12/01/22 - 12/31/22 [facility] [address] [place] [id number] Allergies, Adverse Reactions, Alerts Substance Reaction Severity Status ibuprofen ABD PAIN Active morphine Vomiting and itchy Active traMADol Itchy, Hives Active Immunizations Given and Recorded Vaccine Date Status Refusal Reason SARS-CoV-2 mRNA ([id number]) vax 02/22/22 Recorded SARS-CoV-2 (COVID-19) mRNA BNT-162b2 [...] Note: VIS GIVEN-DATED 05/30/11 2Result Comment: LOT [id number] EXP 04 MAY 2010 3Admin Note: VIS [...] 04/24/22 9:05:00 EDT, Route to Pharmacy Electronically, [facility], Partial fill upon patient request if the prescription is for a schedule II opio... Start Date: 04/24/22 Status: Ordered ammonium lactate 5% topical lotion 1 application, Topically, 2 times a day, # 240 Gm, 0 Refills, Maintenance, 05/01/22 12:34:00 EDT, Lotion, [facility]/pharmacy #[id number], Partial fill upon patient request if the prescription is for a schedule II opioid drug., 1 application Topically 2 times a da... Start Date: 05/01/22 Stop Date: 05/31/22 Status: Ordered aspirin 81 mg oral delayed release tablet 81 mg, By Mouth, Daily, # 30 tablet, Refills 2, Tot. Refills 2, Maintenance, 12/25/22 11:05:00 EST,Route to Pharmacy Electronically, [facility]/pharmacy #[id number], Partial fill upon patient request if the prescription is for a schedule II opioid drug., 169, cm,... Start Date: 12/25/22 Stop Date: 03/25/23 Status: Ordered atorvastatin 40 mg oral tablet 1 tablet = 40 mg, By Mouth, Daily, # 90 tablet, 2 Refills, Maintenance, 04/24/22 9:41:00 EDT, Tablet, [facility], Partial fill upon [...] 07/26/22 16:13:00 EDT, Route to Pharmacy Electronically, [facility]/pharmacy #[id number], Partial fill upon patient request if the pres... Start Date: 07/26/22 Stop Date: 01/22/23 Status: Ordered carvedilol 25 mg oral tablet 25 mg, 1, tablet, By Mouth, 2 times a day, # 60 tablet, Refills 2, Tot. Refills 2, Maintenance, 01/22/23 16:13:00 EDT, Route to Pharmacy Electronically, [facility]/pharmacy #[id number], Partial fill upon patient request if the prescription is for a schedule II opi... Start Date: 01/22/23 Stop Date: 04/22/23 Status: Ordered Colace sodium 100 mg oral capsule 100 mg, 1, capsule, By Mouth, 2 times a day, PRN, # 60 capsule, Refills 0, Tot. Refills 0, Maintenance, for constipation, 03/16/22 14:30:00 EDT, Route to Pharmacy Electronically, [facility], Partial fill upon [...] 10/16/22 10:25:00 EST, Route to Pharmacy Electronically, [facility] #[id number], Partial fill upon patientrequest if the prescription [...] each, 0 Refills, Maintenance, 01/03/23 15:48:00 EST, [facility]/pharmacy #[id number], Partial fill [...] tablet, 0 Refills, Maintenance, 12/15/22 18:43:00 EST, [facility]/pharmacy #[id number], Partial fill upon patient request if the prescription is for a schedule II opioid drug., 169, cm, 11/28/22... Start Date: 12/15/22 Status: Ordered PARoxetine 40 mg oral tablet 40 mg, 1, tablet, By Mouth, Daily, Refills 0, Maintenance, 01/11/22 9:43:00 EST Start Date: 01/11/22 Status: Ordered Pen [place], 31 G x 5 mm BD Ultra [...] 04/24/22 9:03:00 EDT, Route to Pharmacy Electronically, [facility], Partial fill upon [...] 2 Refills, Maintenance, 10/16/22 13:14:00 EST, Solution, [facility]/pharmacy #[id number], Partial fill upon patient request if the prescription is for a schedule II opioid drug., 169, cm, 10/09/22 8:39... Start Date: 10/16/22 Status: Ordered Ventolin HFA 108 mcg/inh inhalation aerosol with adapter 1 puffs, Inhalation, Every 4 hours, PRN NEEDED FOR WHEEZING, # 18 Gm, 0 Refills, Maintenance, 12/15/22 18:28:00 EST, [facility]/pharmacy #[id number], 169, cm, 11/28/22 9:17:00 EST, [...] Active Morbid obesity Confirmed Active BHN/CCA/CP- Angle [id number] longterm active care coordination Confirmed Active Peripheral vascular disease - right SFA angioplasty/right great toe amputation 2021 Confirmed Active Severe obesity (BMI 35.0-39.9) with comorbidity Confirmed Active Umbilical hernia Confirmed Active 1per 2016 and 2019 [facility] notes Social History Social History Type Response Smoking Status Never (less than 100 in lifetime) entered on: 09/03/19 Sex 1per pt Patient Care team information Care Team Personnel Name: Allegra Aguayo MD Position: [facility] Resident Member Role: PCP Address: Address: [address] [place] [address] Name: Vera Locke RN Position: S RN Member Role: Primary Care Nurse Name: Baljit Martínez RN Position: S RN Member Role: Primary Care Nurse Name: Sabine Guthrie RN Position: S RN Member Role: Primary Care Nurse Name: Aditi Hernandez RN Position: S RN Member Role: Primary Care Nurse Name: Piyush Moore RN Position: [facility] RN Member Role: Primary Care Nurse Name: Mis Vences RN Position: S RN Member Role: Primary Care Nurse Name: Angie Lopez RN Position: S RN Member Role: Primary Care Nurse Name: Lizzie Estrada RN Position: [facility] Onco RN Member Role: Primary Care Nurse Care Team Related Persons Name: MIKEY SEAY Address: home [address] [address] Name: MIKEY AYALA Address: home [address] [place] [address] Name: TANIA COPPOLA Address: home [address] [place] [id number] Name: TANIA MUÑIZ Address: home [address] [place] [id number]
--- OUTSIDE RECORDS SUMMARY | 2023-02-20 15:19 | XMS_ITS | Continuity of Care Document ---
Author Name Unknown Organization [facility] Address [address] [place] [address]- Care Team Providers Care Construction Framer Name Role Phone ChristinaAntioneMeagan pena DO Primary Care Physici an Encounter [facility] [place] Date(s): 12/31/19 - 02/14/20 [facility] [address] [place] [id number]- [facility] Attending Physician: Luis F Rowland MD Admitting [...] Note: VIS GIVEN-DATED 05/30/11 2Result Comment: LOT [id number] EXP 04 MAY 2010 3Admin Note: VIS [...] 02/03/20 12:39:00 EDT, Route to Pharmacy Electronically, [facility] #[id number], 170, cm, 12/16/19 10:11:00 EST, Height, 100.5, [...] 03/06/19 17:12:53 EDT, Route to Pharmacy Electronically, [id number], [facility] [id number] Start Date: 03/06/19 Status: Ordered insulin glargine 100 u/ml subcutaneous solution See Instructions, 40 units in the MORNING and 40 units AT BEDTIME Subcutaneous Injection dx E11.9 Rotate injection sites, # 60 mL, 1 Refills, Maintenance, 02/09/20 16:59:00 EDT, Solution, [facility] #[id number], 170, cm, 12/16/19 10:11:00 EST,... Start Date: 02/09/20 Status: Ordered Insulin Syringe, BD Ultra-Fine 0.5 cc 31 G x 8 mm (5/16in) See Instructions, # 150 each, Refills 11, Tot. Refills 11, Maintenance, use as directed for Type 2 Diabetes Mellitus to admisiter insulin four times a day. Dx; E11.9, 05/13/19 13:22:55 EDT, pt was transferred to [facility], all meds left beh... Start Date: 05/13/19 Stop Date: 05/07/20 Status: Ordered lisinopril 40 mg oral tablet 1 tablet = 40 mg, By Mouth, Daily, # 90 tablet, 4 Refills, Maintenance, 02/03/20 12:39:00 EDT, Tablet, [facility] #[id number], 170, cm, 12/16/19 10:11:00 EST, Height, 100.5, kg, 05/30/19 9:39:00EDT, Dry Weight Start Date: 02/03/20 Stop Date: 04/28/21 Status: Ordered Melatonin 5 mg oral tablet 0 Refills, Maintenance, 01/29/19 10:09:09 EDT Start Date: 01/29/19 Status: Ordered meloxicam 5 mg oral capsule 1 capsule = 5 mg, By Mouth, Daily, # 5 capsule, 0 Refills, Maintenance, 02/03/20 10:30:00 EDT, Capsule, [facility] #[id number], 170, cm, 12/16/19 10:11:00 EST, Height, 100.5, kg, 05/30/19 9:39:00 EDT, Dry Weight Start Date: 02/03/20 Stop Date: 02/08/20 Status: Ordered NovoLOG 100 units/mL injectable solution = 20 units, Subcutaneous Infusion, 3 times a day before meals, replaces humalog, # 50 mL, 1 Refills, Maintenance, 02/09/20 16:58:00 EDT, [facility] #[id number], 170, cm, 12/16/19 10:11:00 EST, Height, 100.5, kg, 05/30/19 9:39:00 EDT, Dry Weight Start Date: 02/09/20 Status: Ordered OXcarbazepine 300 mg oral tablet TK 1 T PO BID Start Date: 01/29/19 Status: Ordered PARoxetine 40 mg oral tablet TK 1 T PO HS Start Date: 01/29/19 Status: Ordered Pen [place], 31 G x 5 mm BD Ultra [...] 5 Refills, Maintenance, 02/03/20 10:19:00 EDT, [facility], [id number], 170, cm, 12/16/19 10:11:00 EST, Height, 100.5, [...] Umbilical hernia(Confirmed) Active 1per 2017 and 2019 [facility] notes Social History Social History Type Response Smoking Status Never (less than 100 in lifetime) entered on: 09/03/19 Sex Female 1per pt
--- OUTSIDE RECORDS SUMMARY | 2023-02-20 15:19 | XMS_ITS | Continuity of Care Document ---
Author Name Unknown Organization [facility] Address [address] [place] [address]- Care Team Providers Care Fuel Injection Servicer Name Role Phone Josef MOSHER, Mamie Patterson Primary Care Physician [phone] Encounter [facility] [place] Date(s[place] 11/03/21 - 12/03/21 [facility] [address] [place], [place] [address] Allergies, [...] Note: VIS GIVEN-DATED 05/30/11 2Result Comment: LOT [id number] EXP 04 MAY 2010 3Admin Note: VIS [...] 07/20/21 9:24:00 EDT, Route to Pharmacy Electronically, [facility] #[id number], 170, cm, 07/20/21 8:57:00 EDT, Height Start Date: 07/20/21 Stop Date: 10/13/22 Status: Ordered atorvastatin 10 mg oral tablet 1 tablet = 10 mg, By Mouth, Daily, # 90 tablet, 1 Refills, Maintenance, 05/05/21 10:09:00 EDT, [facility] #[id number], 170, cm, 12/21/20 9:18:00 EST, Height, 100.5, [...] 07/20/21 9:33:00 EDT, Route to Pharmacy Electronically, [facility] #[id number], Partial fill upon patient request if the [...] tablet, 11 Refills, Maintenance, 10/24/21 9:05:00 EST, [facility] 170, cm, 07/28/21 10:50:00 EDT, Height Start Date: 10/24/21 Status: Ordered Januvia 50 mg oral tablet 1 tablet = 50 mg, By Mouth, Daily, dose decreased, # 30 tablet, 11 Refills, Maintenance, 09/20/21 13:40:00 EST, Tablet, [facility] #[id number], Partial fill upon patient request if the prescription is for a schedule II opioid drug., 170, cm, 07/07... Start Date: 09/20/21 Status: Ordered Lantus Solostar Pen 100 units/mL subcutaneous solution See Instructions, INJECT 45 UNITS UNDER THE SKIN TWICE DAILY., # 24 mL, 0 Refills, 10/21/21 7:36:00EST, [facility] #[id number], dose increase since 07/26, 170, cm, 07/28/21 10:50:00 EDT, Height Start Date: 10/21/21 Status: Ordered lisinopril 40 mg oral tablet 1 tablet = 40 mg, By Mouth, Daily, # 90 tablet, 4 Refills, Maintenance, 07/20/21 9:25:00 EDT, Tablet, [facility] #[id number], 170, cm, 07/20/21 8:57:00 EDT, Height Start Date: 07/20/21 Stop Date: 10/13/22 Status: Ordered Melatonin 5 mg oral tablet 0 Refills, Maintenance, 01/29/19 10:09:09 EDT Start Date: 01/29/19 Status: Ordered NovoLOG 100 units/mL subcutaneous solution See Instructions, 28 units Subcutaneous Infusion 3 times a day before meals dxE11.9, # 48 mL, 11 Refills, Maintenance, 08/26/21 13:13:00 EDT, [facility] Partial fill upon patient request if the prescription is for a schedule II opioid... Start Date: 08/26/21 Status: Ordered OXcarbazepine 300 mg oral tablet TK 1 T PO BID Start Date: 01/29/19 Status: Ordered PARoxetine 40 mg oral tablet TK 1 T PO HS Start Date: 01/29/19 Status: Ordered Pen [place], 31 G x 5 mm BD Ultra Fine III See Instructions, # 150 each, Refills 11, Tot. Refills 11, Maintenance, use to inject insulin up tofive times daily dx e11.9, 10/21/20 15:55:00 EST, Supply, 170, cm, 05/20/20 14:48:00 EDT, Height, 100.5, kg, 05/30/19 9:39:00 EDT, Dry Weight Start Date: 10/21/20 Status: Ordered Pen [place], 31 G x 5 mm BD Ultra [...] FOR 14 DAYS, # 15 Gm, 0 Refills,[facility][id number], 14, APPLY TOPICALLY TO THE AFFECTED AREA TWICE DAILY FOR 14 DAYS, 170,cm, 07/28/21 10:50:00 EDT, Height Start Date: 11/02/21 Status: Ordered Trulicity Pen 3 mg/0.5 mL subcutaneous solution 0.5 mL = 3 mg, Subcutaneous Injection, Every week, rotate injection sites, # 2 mL, 0 Refills, Maintenance, 11/30/21 14:02:00 EST, Solution, [facility] #[id number], Partial fill upon patient request if the prescription is for a schedule II opioid... Start Date: 11/30/21 Status: Ordered Ventolin HFA 108 mcg/inh inhalation aerosol with adapter 1 puffs, Inhalation, 4 times a day, PRN for wheezing, # 8 Gm, 2 Refills, Maintenance, 09/22/21 11:41:00 EST, Aerosol, [facility] #[id number], Partial fill upon patient request if the [...] Microalbuminuria(Confirmed) Active Morbid obesity(Confirmed) Active BHN/CCA/AUDRA-Mignon Peters [phone]/[facility] active care coordination(Confirmed) Active Peripheral vascular disease(Confirmed) Active Umbilical hernia(Confirmed) Active 1per 2016 and 2018 [facility] notes Social History Social History Type Response Smoking Status Never (less than 100 in lifetime) entered on: 09/03/19 Sex Female 1per pt
--- OUTSIDE RECORDS SUMMARY | 2023-02-20 15:19 | XMS_ITS | Continuity of Care Document ---
Author Name Unknown Organization [facility] Address [address] [place] [address]- Care Team Providers Care Lens Grinder And Polisher Name Role Phone Sangeetha MOSHER, Marcia Koroma Primary Care Physician Encounter [facility] Date(s): 07/29/20 - 08/28/20 [facility] [address] [place] [address]- [facility] Allergies, Adverse Reactions, Alerts Substance Reaction Severity [...] Note: VIS GIVEN-DATED 05/30/11 2Result Comment: LOT [id number] EXP 04 MAY 2010 3Admin Note: VIS [...] 07/30/20 18:34:00 EDT, Route to Pharmacy Electronically, [facility] #[id number], 170, cm, 05/20/20 14:48:00 EDT, Height, 100.5, kg, 05/30/19 9:39:00 EDT, Dry... Start Date: 07/30/20 Stop Date: 07/25/21 Status: Ordered aspirin 81 mg oral delayed release tablet 81 mg, 1, tablet, By Mouth, Daily, # 30 tablet, Refills 11, Tot. Refills 11, Maintenance, 05/20/20 14:45:00 EDT, Route to Pharmacy Electronically, [facility] #[id number], 170, cm, 05/20/20 14:08:00 EDT, Height, 100.5, kg, 05/30/19 9:39:00 EDT, . Start Date: 05/20/20 Status: Ordered atorvastatin 10 mg oral tablet 1 tablet = 10 mg, By Mouth, Daily, # 30 tablet, 11 Refills, Maintenance, 05/20/20 14:46:00 EDT, [facility] #[id number], 170, cm, 05/20/20 14:08:00 EDT, Height, 100.5, [...] 03/06/19 17:12:53 EDT, Route to Pharmacy Electronically, [id number], [id number] Start Date: 03/06/19 Status: Ordered Insulin Syringe, BD Ultra-Fine 0.5 cc 31 G x 8 mm (516in) See Instructions, # 150 each, Refills 11, Tot. Refills 11, Maintenance, use as directed for Type 2 Diabetes Mellitus to admisiter insulin four times a day. Dx; E11.9, 05/15/21 15:10:00 EDT, pt was transferred to [facility], all meds left beh... Start Date: 05/15/21 [...] E11.9,05/20/20 15:10:00 EDT, pt was transferred to [facility].. Start Date: 05/20/20 Stop Date: 05/15/21 Status: Ordered Lantus 100 u/ml subcutaneous solution = 40 units, Subcutaneous Infusion, 2 times a day, # 15 mL, 3 Refills, Maintenance, 07/30/20 18:34:00 EDT, [facility] #[id number], 170, cm, 05/20/20 14:48:00 EDT, Height, 100.5, kg, 05/30/19 9:39:00 EDT, Dry Weight Start Date: 07/30/20 Stop Date: 11/27/20 Status: Ordered lidocaine 4% topical cream 1 application, Topically, Daily, for 30 days, # 30 Gm, 2 Refills, Acute 11/04/20 13:08:00 EST, 08/06/20 13:08:00 EDT, Cream, [facility] #[id number], 1 application Topically Daily,x30 days, 170, cm, 05/20/20 14:48:00 EDT, Height, 100.5, kg, ... Start Date: 08/06/20 Stop Date: 11/04/20 Status: Ordered lisinopril 40 mg oral tablet 1 tablet = 40 mg, By Mouth, Daily, # 90 tablet, 4 Refills, Maintenance, 02/03/20 12:39:00 EDT, Tablet, [facility] #[id number], 170, cm, 12/16/19 10:11:00 EST, Height, 100.5, kg, 05/30/19 9:39:00EDT, Dry Weight Start Date: 02/03/20 Stop Date: 04/28/21 Status: Ordered Melatonin 5 mg oral tablet 0 Refills, Maintenance, 01/29/19 10:09:09 EDT Start Date: 01/29/19 Status: Ordered NovoLOG 100 units/mL injectable solution = 20 units, Subcutaneous Infusion, 3 times a day before meals, replaces humalog, # 50 mL, 1 Refills, Maintenance, 07/29/20 11:23:00 EDT, [facility] #[id number], 170, cm, 05/20/20 14:48:00 EDT, Height, 100.5, [...] 0 Refills, Maintenance, 05/20/20 15:09:00 EDT, Ointment, [facility] #[id number], 1 application Topically 2 times a day,x14 days,Instr:apply a thin film; to aff... Start Date: 05/20/20 Stop Date: 06/03/20 Status: Ordered Trulicity Pen 1.5 mg/0.5 mL subcutaneous solution 0.5 mL = 1.5 mg, Subcutaneous Injection, Every week, # 2.5 mL, 5 Refills, Maintenance, 07/29/20 8:56:00 EDT, Solution, [facility] #[id number], 170, cm, 05/20/20 14:48:00 EDT, Height, 100.5, [...] hernia(Confirmed) Active 1per 2016 and 2018 [facility] notes Social History Social History Type Response Smoking Status Never (less than 100 in lifetime) entered on: 09/03/19 Sex Female 1per pt
--- OUTSIDE RECORDS SUMMARY | 2023-02-20 15:19 | XMS_ITS | Continuity of Care Document ---
Author Name Unknown Organization [facility] Address [address] [place] [id number]- Care Team Providers Care Product Safety Lead Name Role Phone Olivier MOSHER, Allegra Primary Care Physician [place] [facility] [place]15[place]23 - 02/16/[address] [address]- Encounter Diagnosis Asthma with bronchitis(Final) - 02/16/23 Discharge Disposition: A-D/C Home Attending Physician: Josué Caldwell MD Admitting Physician: Josué Caldwell MD Referring Physician: Not on Staff, Referring MD Allergies, Adverse Reactions, Alerts Substance Reaction Severity Status ibuprofen ABD PAIN Active morphine Vomiting and itchy Active traMADol Itchy, Hives Active Immunizations Given and Recorded Vaccine Date Status Refusal Reason SARS-CoV-2 mRNA ([id number]) vax 02/22/22 Recorded SARS-CoV-2 (COVID-19) mRNA BNT-162b2 [...] Note: VIS GIVEN-DATED 05/30/11 2Result Comment: LOT [id number] EXP 04 MAY 2010 3Admin Note: VIS [...] 0 Refills, Maintenance, 02/14/23 11:54:00 EDT, Aerosol, [facility]/pharmacy #[id number], Partial fill upon patient request if the [...] 10/16/22 10:25:00 EST, Route to Pharmacy Electronically, [facility] #[id number], Partial fill upon patientrequest if the prescription is for a schedule II op... Start Date: 10/16/22 Status: Ordered Lantus Solostar Pen 100 units/mL subcutaneous solution See Instructions, Subcutaneous Injection, 30 units sc bid dx E11.9 dose increased 01/23/23, # 15 mL,11 Refills, Maintenance, 01/23/23 9:43:00 EDT, [facility]/pharmacy #[id number], Partial fill upon patient request if the prescription is for a schedule II opioid d... Start Date: 01/23/23 Stop Date: 01/18/24 Status: Ordered lisinopril 10 mg oral tablet 10 mg, 1, tablet, By Mouth, Daily, # 90 tablet, Refills 2, Tot. Refills 2, Maintenance, 01/23/23 10:15:00 EDT, Route to Pharmacy Electronically, [facility]/pharmacy #[id number], Partial fill upon patient request if [...] mL, 0 Refills, Maintenance, 02/16/23 9:44:00 EDT, [facility]/pharmacy #[id number], 169, cm, 02/14/23 10:47:00 EDT, Height, 103.42, kg, 10/09/22 8:... Start Date: 02/16/23 Stop Date: 05/17/23 Status: Ordered oxyCODONE 10 mg oral tablet 1 tablet = 10 mg, By Mouth, Every 12 hours, # 30 tablet, 0 Refills, Maintenance, 01/29/23 16:57:00 EDT, [facility]/pharmacy #[id number], Partial fill upon patient request if the prescription is for a schedule II opioid drug., 169, cm, 01/23/23 13:31:00 EDT, Height... Start Date: 01/29/23 Status: Ordered oxyCODONE 5 mg oral tablet 10 mg, Tablet, By Mouth, Once, STAT, 02/15/23 16:24:00 EDT, Stop date 02/15/23 16:24:00 EDT Start Date: 02/15/23 Stop Date: 02/15/23 Status: Completed oxyCODONE 5 mg oral tablet 5 mg, Tablet, By Mouth, Once, Routine, 02/15/23 21:00:00 EDT, Stop date 02/15/23 21:00:00 EDT Start Date: 02/15/23 Stop Date: 02/16/23 Status: Completed Oxycontin ER Tablet 10 mg, ER Tablet, By Mouth, Once, STAT, 02/16/23 2:44:00 EDT, Stop date 02/16/23 2:44:00 EDT Notes: Do Not Crush. Start Date: 02/16/23 Stop Date: 02/16/23 Status: Completed PARoxetine 40 mg oral tablet 40 mg, 1, tablet, By Mouth, Daily, Refills 0, Maintenance, 01/11/22 9:43:00 EST Start Date: 01/11/22 Status: Ordered Pen [place], 31 G x 5 mm BD Ultra [...] 02/20/23 2:46:00 EDT, 02/16/23 2:46:00 EDT, Tablet, [facility]/pharmacy #[id number], Partial fill upon patient request if the [...] Refills, Maintenance, 01/23/23 9:42:00 EDT, Solution, [facility] #[id number], Partial fill upon patient request if the [...] Active Morbid obesity Confirmed Active BHN/CCA/CP- Angle [id number] detention active care coordination Confirmed Active Peripheral vascular disease - right SFA angioplasty/right great toe amputation 2021 Confirmed Active Severe obesity Confirmed Active Umbilical hernia Confirmed Active 1per 2016 and 2018 [facility] notes Results Radiology Reports * Exam Date Time Procedure Performing Provider Status 02/16/23 12:[address] Angio Chest Domitila Koenig; Auth (Verified) Notes: (CT Angio Chest) Reason For Exam: PE suspected, Intermediate prob, positive D-dimer,;Other: RESULT: CT Angio Chest EXAMINATION: CT Angio Chest INDICATION: Worsening shortness of breath with bilateral lower extremity edema. Concern for pulmonary embolism. TECHNIQUE: Spiral CTA of the chest was performed after rapid IV contrast administration without cardiac gating, triggered by an MELVIN on the main pulmonary artery. Images are formatted in multiple planes using 2-D multiplanar and 3-D maximum intensity projection. 80 cc of Omnipaque 300 was administered intravenously. This study was performed without oral contrast. Weight-based protocol using automatic tube modulation was used to optimize exposure parameters. CTDIvol Body: 13.27 mGy, DLP Body: 678 mGy*cm. COMPARISONS: 04/27/2022. ANGIOGRAPHIC FINDINGS: Evaluation is severely limited by motion artifact. No pulmonary embolism to the proximal most lobar level. Unable to assess beyond this level due to severe motion artifact. Normal caliber pulmonary arteries. No acute aortic abnormality seen on this study performed without cardiac gating. NON-ANGIOGRAPHIC FINDINGS: Parimutuel Clerk View Findings, Lines and Tubes: None. Trachea and Airways: Patent without evidence of tracheal or endobronchial lesion. Lungs and Pleura: Findings obscured by severe motion artifact. Mild asymmetric groundglass appearance in the right lung relative to the left without multifocal consolidations or dense lobar consolidation. Evaluation for nodules is limited by motion. No effusion or pneumothorax. Mediastinum and timothy: No mass or hematoma. No mediastinal or hilar lymphadenopathy. No esophageal abnormality. Partially imaged thyroid is unremarkable. Exaggeration of the cardiomediastinum due to markedly low lung volumes. Heart: Mild cardiomegaly. No pericardial effusion. Chest Wall Soft Tissues: Normal. Diaphragm and upper abdomen: Small hiatal hernia. Bones: No acute abnormality. IMPRESSION: No pulmonary embolism to the proximal most lobar level with distal evaluation precluded by marked motion artifact. Mild hazy opacity asymmetrically in the right lung is likely atelectasis. Overall lung volumes are low. There is no consolidation. Given degree of motion could limit evaluation for minimal ground glass opacities: active infection symptoms, considered less likely, should be further clinically excluded. No pleural effusions. I have personally reviewed the images and I agree with this report. WSN: [id number] Ordering Physician: Jimy Brown Dictated By: Sherman Black MD Dictated Date/Time: 02/16/23 7:27 am Reviewed By: Ilsa Wilkinson MD Signed By: Ilsa Wilkinson MD Signed Date/Time: 02/16/23 7:32 am Transcribed By: TY Transcribed Date/Time: 02/16/23 1:19 am Vital Signs Most recent to oldest [Reference Range]: 1 2 3 Oxygen Saturation [94-100 %] 98 % (02/16/23 1:09 AM) 99 % (02/15/23 11:26 AM) 99 % (02/15/23 11:20 AM) Pulse Rate [55-90 bpm] 79 bpm (02/16/23 1:09 AM) 102 bpm *H* (02/15/23 11:26 AM) 70 bpm (02/15/23 11:20 AM) Blood Pressure [90-138/55-84 mm Hg] 177/81mm Hg *H* (02/16/23 1:09 AM) 163/92mm Hg *H* (02/15/23 11:26 AM) Respiratory Rate [16-30 br/min] 16 br/min (02/16/23 3:03 AM) 18 br/min (02/16/23 1:20 AM) 18 br/min (02/15/23 4:33 PM) Temperature [96.8-100.4 DegF] 97.7 DegF (02/16/23 1:09 AM) 97.4 DegF (02/15/23 11:26 AM) Mode of Delivery (Oxygen) Room air (02/16/23 1:09 AM) Room air (02/15/23 11:26 AM) Room air (02/15/23 11:20 AM) Blood pressure sites Arm, right (02/16/23 1:09 AM) Temperature Route Oral (02/16/23 1:09 AM) Oral (02/15/23 11:26 AM) Social History Social History Type Response Smoking Status Never (less than 100 in lifetime) entered on: 09/03/19 Sex 1per pt EKG study * Event Display: ECG 12-Lead Authored Date: Please click on pdf link to open report * Event Display: ECG 12-Lead Authored Date: Ventricular Rate: 69 BPM Atrial Rate: 69 BPM P-R Interval: 152 ms QRS Duration: 90 ms Q-T Interval: 466 ms QTC Calculation(Bazett): 499 ms P [place]: 51 degrees R [place]: -27 degrees T [place]: 81 degrees Normal sinus rhythm Possible Left atrial enlargement Left ventricular hypertrophy Nonspecific T wave abnormality Prolonged QT Abnormal ECG When compared with ECG of 26-APR-2022 22:50, No significant change was found Confirmed by QUINCY CANALES MD ([id number]) on 02/16/2023 7:24:24 AM Whitlash: QUINCY CANALES MD Note * Josué Caldwell MD: PERFORM Event Display: Patient Education Leaflets Authored Date: [id number] Ilmi-iq-Dciu: Using an Inhaler with a Spacer ?? Cvwg-bv-Menq: Using an Inhaler with a Spacer - Video This video shows the steps for using an inhaler. To view the video go to this web address: [email or web address] Or, scan this QR code with your smart phone Last Reviewed Date: 2019 ?? [employer]. All rights reserved. This information is not intended as a substitute for professional medical care. Always follow your healthcare professional's instructions. ?? CTA Chest vessels W contrast IV * BHSPowerscribe , CIS S: TRANSCRIBE Sofia MOSHER, Sherman: LEONIDES Wilkinson MD, Ilsa: VERIFY Event Display: Result: Authored Date: [id number] EXAMINATION: CT Angio Chest INDICATION: Worsening shortness of breath with bilateral lower extremity edema. Concern for pulmonary embolism. TECHNIQUE: Spiral CTA of the chest was performed after rapid IV contrast administration without cardiac gating, triggered by an MELVIN on the main pulmonary artery. Images are formatted in multiple planes using 2-D multiplanar and 3-D maximum intensity projection. 80 cc of Omnipaque 300 was administered intravenously. This study was performed without oral contrast. Weight-based protocol using automatic tube modulation was used to optimize exposure parameters. CTDIvol Body: 13.27 mGy, DLP Body: 678 mGy*cm. COMPARISONS: 04/27/2022. ANGIOGRAPHIC FINDINGS: Evaluation is severely limited by motion artifact. No pulmonary embolism to the proximal most lobar level. Unable to assess beyond this level due to severe motion artifact. Normal caliber pulmonary arteries. No acute aortic abnormality seen on this study performed without cardiac gating. NON-ANGIOGRAPHIC FINDINGS: Parimutuel Clerk View Findings, Lines and Tubes: None. Trachea and Airways: Patent without evidence of tracheal or endobronchial lesion. Lungs and Pleura: Findings obscured by severe motion artifact. Mild asymmetric groundglass appearance in the right lung relative to the left without multifocal consolidations or dense lobar consolidation. Evaluation for nodules is limited by motion. No effusion or pneumothorax. Mediastinum and timothy: No mass or hematoma. No mediastinal or hilar lymphadenopathy. No esophageal abnormality. Partially imaged thyroid is unremarkable. Exaggeration of the cardiomediastinum due to markedly low lung volumes. Heart: Mild cardiomegaly. No pericardial effusion. Chest Wall Soft Tissues: Normal. Diaphragm and upper abdomen: Small hiatal hernia. Bones: No acute abnormality. IMPRESSION: No pulmonary embolism to the proximal most lobar level with distal evaluation precluded by marked motion artifact. Mild hazy opacity asymmetrically in the right lung is likely atelectasis. Overall lung volumes are low. There is no consolidation. Given degree of motion could limit evaluation for minimal ground glass opacities: active infection symptoms, considered less likely, should be further clinically excluded. No pleural effusions. I have personally reviewed the images and I agree with this report. WSN: [id number] Ordering Physician: Jimy Brown Dictated By: Sherman Black MD Dictated Date/Time: 02/16/23 7:27 am Reviewed By: Ilsa Wilkinson MD Signed By: Ilsa Wilkinson MD Signed Date/Time: 02/16/23 7:32 am Transcribed By: TY Transcribed Date/Time: 02/16/23 1:19 am Patient Care team information Care Team Personnel Name: Allegra Aguayo MD Position: [facility] Resident Member Role: PCP Address: Address: [address] [place] [address] [place] [address]- Name: Baljit Martínez RN Position: [facility] RN Member Role: Primary Care Nurse Name: Sabine Guthrie RN Position: S RN Member Role: Primary Care Nurse Name: Aditi Hernandez RN Position: [facility] RN Member Role: Primary Care Nurse Name: Piyush Moore RN Position: [facility] RN Member Role: Primary Care Nurse Name: Mis Vences RN Position: [facility] RN Member Role: Primary Care Nurse Name: Angie Lopez RN Position: [facility] RN Member Role: Primary Care Nurse Name: Lizzie Estrada RN Position: [facility] Onco RN Member Role: Primary Care Nurse [facility] Attending Position: [facility] ED Attendings Patient Name: Josué Caldwell MD Position: [facility] Resident Member Role: ED Attending Physician Address: Address: [address] [place] [address] [place] [address]- Care Team Related Persons Name: MIKEY SEAY Address: home [address] [address] Name: MIKEY AYALA Address: home [address] [place] [address] Name: TANIA COPPOLA Address: home [address] [place] [id number] Name: TANIA MUÑIZ Address: home [address] [place] [address]
--- OUTSIDE RECORDS SUMMARY | 2023-02-20 15:19 | XMS_ITS | Continuity of Care Document ---
Author Name Unknown Organization [facility] Address [address] [place] [address]- Care Team Providers Care Kiln Tester Name Role Phone Olivier MOSHER, Allegra Primary Care Physician [phone] Encounter [facility] Date(s): 12/19/22 - 01/18/23 [facility] [address] [place] [id number] Allergies, Adverse Reactions, Alerts Substance Reaction Severity Status ibuprofen ABD PAIN Active morphine Vomiting and itchy Active traMADol Itchy, Hives Active Immunizations Given and Recorded Vaccine Date Status Refusal Reason SARS-CoV-2 mRNA ([id number]-[id number]-siqlu) vax 02/22/22 Recorded SARS-CoV-2 (COVID-19) mRNA BNT-162b2 [...] Note: VIS GIVEN-DATED 05/30/11 2Result Comment: LOT [id number] EXP 04 MAY 2010 3Admin Note: VIS [...] 04/24/22 9:05:00 EDT, Route to Pharmacy Electronically, [facility], Partial fill upon patient request if the prescription is for a schedule II opio... Start Date: 04/24/22 Status: Ordered ammonium lactate 5% topical lotion 1 application, Topically, 2 times a day, # 240 Gm, 0 Refills, Maintenance, 05/01/22 12:34:00 EDT, Lotion, [facility]/pharmacy #[id number], Partial fill upon patient request if the prescription is for a schedule II opioid drug., 1 application Topically 2 times a da... Start Date: 05/01/22 Stop Date: 05/31/22 Status: Ordered aspirin 81 mg oral delayed release tablet 81 mg, By Mouth, Daily, # 30 tablet, Refills 2, Tot. Refills 2, Maintenance, 12/25/22 11:05:00 EST,Route to Pharmacy Electronically, [facility]/pharmacy #[id number], Partial fill upon patient request if the prescription is for a schedule II opioid drug., 169, cm,... Start Date: 12/25/22 Stop Date: 03/25/23 Status: Ordered atorvastatin 40 mg oral tablet 1 tablet = 40 mg, By Mouth, Daily, # 90 tablet, 2 Refills, Maintenance, 04/24/22 9:41:00 EDT, Tablet, [facility], Partial fill upon patient request [...] EDT, Route to Pharmacy Electronically, [facility]/pharmacy #[id number], Partial fill upon patient request if the pres... Start Date: 07/26/22 Stop Date: 01/22/23 Status: Ordered carvedilol 25 mg oral tablet 25 mg, 1, tablet, By Mouth, 2 times a day, # 60 tablet, Refills 2, Tot. Refills 2, Maintenance, 01/22/23 16:13:00 EDT, Route to Pharmacy Electronically, [facility]/pharmacy #[id number], Partial fill upon patient request if the prescription is for a schedule II opi... Start Date: 01/22/23 Stop Date: 04/22/23 Status: Ordered Colace sodium 100 mg oral capsule 100 mg, 1, capsule, By Mouth, 2 times a day, PRN, # 60 capsule, Refills 0, Tot. Refills 0, Maintenance, for constipation, 03/16/22 14:30:00 EDT, Route to Pharmacy Electronically, [facility], Partial fill upon patient request [...] Refills, Maintenance, 09/21/22 11:57:00 EST, Tablet, [facility]/pharmacy #[id number], Partial fill upon patient request if [...] 10/16/22 10:25:00 EST, Route to Pharmacy Electronically, [facility] #[id number], Partial fill upon patientrequest if the prescription [...] 0 Refills, Maintenance, 01/03/23 15:48:00 EST, [facility]/pharmacy #[id number], Partial fill upon patient request if the prescription is for a schedule II opioid drug., 169, cm, 11/28/22... Start Date: 01/03/23 Stop Date: 02/02/23 Status: Ordered Lasix 20 mg oral tablet 1, capsule, By Mouth, Once, take one pill daily for 3 days, # 3 tablet, Refills 0, Tot. Refills 0, Soft Stop, 09/20/22 11:19:00 EST, Route to Pharmacy Electronically, [facility]/pharmacy #[id number], Partial fillupon patient request if the prescription is for a s... Start Date: 09/20/22 Status: Ordered levoFLOXacin 250 mg oral tablet 1 tablet = 250 mg, By Mouth, Every 24 hours, # 14 tablet, 0 Refills, Maintenance, 09/20/22 11:28:00EST, Tablet, [facility]/pharmacy #[id number], Partial fill upon patient request if the prescription is for a schedule II opioid drug., 169yadi, 09/20/22 9:22:00 EST... Start Date: 09/20/22 Stop Date: 10/04/22 Status: Ordered lisinopril 10 mg oral tablet 10 mg, 1, tablet, By Mouth, Daily, # 90 tablet, Refills 0, Tot. Refills 0, Maintenance, 11/30/22 8:10:00 EST, Route to Pharmacy Electronically, [facility]/pharmacy #[id number], Partial fill upon patient request if [...] 0 Refills, Maintenance, 11/28/22 13:29:00 EST, [facility]/pharmacy #[id number], Partial fill upon patient request if the prescription is for a schedule II opioid drug., 169,... Start Date: 11/28/22 Status: Ordered oxyCODONE 10 mg oral tablet 1 tablet = 10 mg, By Mouth, Every 12 hours, PRN Pain , Moderate, # 30 tablet, 0 Refills, Maintenance, 01/12/23 13:41:00 EST, [facility]/pharmacy #[id number], Partial fill upon patient request if the prescription is for a schedule II opioid drug., 169, yadi, 11/28/22... Start Date: 01/12/23 Status: Ordered PARoxetine 40 mg oral tablet 40 mg, 1, tablet, By Mouth, Daily, Refills 0, Maintenance, 01/11/22 9:43:00 EST Start Date: 01/11/22 Status: Ordered Pen [place], 31 G x 5 mm BD Ultra [...] 04/24/22 9:03:00 EDT, Route to Pharmacy Electronically, [facility], Partial fill upon patient request [...] 0 Refills, Maintenance, 11/22/22 12:11:00 EST, Ointment, [facility]/pharmacy #[id number], Partial fill upon patient request if [...] Active Morbid obesity Confirmed Active BHN/CCA/CP- Angle [id number] prison active care coordination Confirmed Active Peripheral vascular disease - right SFA angioplasty/right great toe amputation 2021 Confirmed Active Severe obesity (BMI 35.0-39.9) with comorbidity Confirmed Active Umbilical hernia Confirmed Active 1per 2016 and 2019 [facility] notes Social History Social History Type Response Smoking Status Never (less than 100 in lifetime) entered on: 09/03/19 Sex 1per pt Patient Care team information Care Team Personnel Name: Allegra Aguayo MD Position: [facility] Resident Member Role: PCP Address: Address: [address] [place] [address] [place] [address]- Name: Vera Locke RN Position: [facility] RN Member Role: Primary Care Nurse Name: Mauricio RNBaljit Position: [facility] ED RN W/OE and Tasks Member Role: Primary Care Nurse Name: Sabine Guthrie RN Position: [facility] RN Member Role: Primary Care Nurse Name: Aditi Hernandez RN Position: [facility] RN Member Role: Primary Care Nurse Name: Piyush Moore RN Position: [facility] RN Member Role: Primary Care Nurse Name: Mis Vences RN Position: [facility] RN Member Role: Primary Care Nurse Name: Angie Lopez RN Position: [facility] RN Member Role: Primary Care Nurse Name: Lizzie Estrada RN Position: [facility] Onco RN Member Role: Primary Care Nurse Care Team Related Persons Name: MIKEY SEAY Address: home [address] [address] Name: MIKEY AYALA Address: home [address] [place] [address] Name: TANIA COPPOLA Address: home [address] [place] [address] Name: TANIA MUÑIZ Address: home [address] [place] [address]
--- OUTSIDE RECORDS SUMMARY | 2023-02-20 15:19 | XMS_ITS | Continuity of Care Document ---
Author Name Unknown Organization [facility] Address [address] [place] [address]- Care Team Providers Care Account Support Associate Name Role Phone Olivier MOSHER, Allegra Primary Care Physician Encounter [facility] Date(s): 07/26/22 - 08/25/22 [facility] [address] [place], [place] [address] Allergies, Adverse Reactions, Alerts Substance Reaction Severity Status ibuprofen ABD PAIN Active morphine Vomiting and itchy Active traMADol Itchy, Hives Active Immunizations Given and Recorded Vaccine Date Status Refusal Reason SARS-CoV-2 mRNA (tsdgqsv-xpgn-gsfmh) vax 02/22/22 Recorded SARS-CoV-2 (COVID-19) mRNA BNT-162b2 [...] Note: VIS GIVEN-DATED 05/30/11 2Result Comment: LOT [id number] EXP 04 MAY 2010 3Admin Note: VIS [...] Refills, Maintenance, 05/01/22 12:34:00 EDT, Lotion, [facility]/pharmacy #[id number], Partial fill upon patient request if the prescription is for a schedule II opioid drug., 1 application Topically 2 times a da... Start Date: 05/01/22 Stop Date: 05/31/22 Status: Ordered aspirin 81 mg oral delayed release tablet 81 mg, By Mouth, Daily, # 30 tablet, Refills 5, Tot. Refills 5, Maintenance, 05/13/22 16:40:00 EDT,Route to Pharmacy Electronically, [facility], Partial fill upon patient request if the prescription is for a schedule II opioid drug.,... Start Date: 05/13/22 Stop Date: 11/09/22 Status: Ordered atorvastatin 40 mg oral tablet 1 tablet = 40 mg, By Mouth, Daily, # 90 tablet, 2 Refills, Maintenance, 04/24/22 9:41:00 EDT, Tablet, [facility]., Partial fill upon patient request if [...] 16:13:00 EDT, [id number], Partial fill upon patient request if [...] 07/07/22 15:52:00 EDT, Route to Pharmacy Electronically, [facility], [...] 6 Refills, Soft Stop, 08/01/22 16:09:00EDT, Solution, [facility], Partial fill upon patient request if the prescription isfor a schedule II opioid drug., 169, cm, 08/01/22 1... Start Date: 08/01/22 Stop Date: 04/22/24 Status: Ordered lisinopril 10 mg oral tablet 10 mg, 1, tablet, By Mouth, Daily, # 90 tablet, Refills 4, Tot. Refills 4, Maintenance, 07/12/22 10:12:00 EDT, Route to Pharmacy Electronically, [facility] #[id number], Partial fill upon patientrequest if the prescription is for a schedule II op... Start Date: 07/12/22 Stop Date: 10/05/23 Status: Ordered NovoLOG FlexPen 100 units/mL injectable solution = 20 units, Subcutaneous Injection, 3 times a day before meals, INJECT 20 UNITS INTO SKIN THREE TIMES DAILY BEFORE A MEAL, # 15 mL, 10 Refills, Maintenance, 08/01/22 16:09:00 EDT, [facility] 169, cm, 08/01/22 14:14:00 [...] 0 Refills, Maintenance, 04/18/22 9:51:00 EDT, Aerosol, [facility], Partial fill upon patient request [...] 0 Refills, Maintenance, 03/09/22 14:21:00 EDT, Gel, [facility], Partial fill upon patient request if the p... Start Date: 03/09/22 Status: Ordered traZODone 300 mg oral tablet 1 tablet = 300 mg, By Mouth, Daily at bedtime Start Date: 03/03/22 Status: Ordered Trulicity Pen 4.5 mg/0.5 mL subcutaneous solution = 0.5 mL, Subcutaneous Injection, Every week, rotate injection sites, # 6 mL, 4 Refills, Maintenance, 07/19/22 10:42:00 EDT, Solution, [facility] #[id number], Partial fill upon patient request if the prescription is for a schedule II opioid drug.... Start Date: 07/19/22 Status: Ordered Tylenol 8 Hour 650 mg oral tablet, extended release 2 tablet = 1,300 mg, By Mouth, Every 8 hours, PRN as needed for pain, # 24 tablet, 0 Refills, Maintenance, 04/24/22 9:43:00 EDT, ER Tablet, [facility]., Partial fill upon patient request if the prescription is for a schedule II opioid d... Start Date: 04/24/22 Status: Ordered Ventolin HFA 108 mcg/inh inhalation aerosol with adapter 2 puffs, Inhalation, Every 6 hours, PRN Wheezing/Shortness of Breath, # 8 Gm, 1 Refills, Maintenance, 05/30/22 10:56:00 EDT, [facility], Partial fill upon patient request [...] Obese class II Confirmed Active BHN/CCA/CP- Angle [id number] alf active care coordination Confirmed Active Peripheral vascular disease Confirmed Active Umbilical hernia Confirmed Active 1per 2017 and 2019 [facility] notes Social History Social History Type Response Smoking Status Never (less than 100 in lifetime) entered on: 09/03/19 Sex 1per pt Patient Care team information Personnel Name: Allegra Aguayo MD Address: Address: [address] [place] [address]
--- OUTSIDE RECORDS SUMMARY | 2023-02-20 15:19 | XMS_ITS | Continuity of Care Document ---
Author Name Unknown Organization [facility] Address [address] [place] [address]- Care Team Providers Care Hemming And Tacking Machine Operator Name Role Phone Josef MOSHER, Mamie Patterson Primary Care Physician [phone] Encounter [facility] Date(s): 02/27/22 - 03/29/22 [facility] [address], [place] [address] Allergies, Adverse Reactions, Alerts Substance Reaction Severity Status ibuprofen ABD PAIN Active morphine Vomiting and itchy Active traMADol Itchy, Hives Active Immunizations Given and Recorded Vaccine Date Status Refusal Reason SARS-CoV-2 mRNA ([id number]) vax 02/22/22 Recorded SARS-CoV-2 (COVID-19) mRNA BNT-162b2 [...] Note: VIS GIVEN-DATED 05/30/11 2Result Comment: LOT [id number] EXP 04 MAY 2010 3Admin Note: VIS given Medications Accu-Chek Erika Glucose Meter See Instructions, # 1 each, Maintenance, use to check bs 4 times daily dx E11.9, 07/21/21 11:27:00 EDT, Supply, 170, cm, 07/20/21 8:57:00 EDT, Height Start Date: 07/21/21 Status: Ordered Accu-Chek Eirka Plus Test Strips See Instructions, # 150 [...] 03/10/22 9:04:00 EDT, Route to Pharmacy Electronically, [facility] #[id number], Partial fill upon patient request if the prescription is for a schedule II opi... Start Date: 03/10/22 Status: Ordered atorvastatin 10 mg oral tablet 1 tablet, By Mouth, Daily, # 90 tablet, 1 Refills, Maintenance, 12/13/21 19:21:00 EST, [facility] #[id number], 170, cm, 07/28/21 10:50:00 EDT, Height Start [...] 03/16/22 14:30:00 EDT, Route to Pharmacy Electronically, [facility], Partial fill upon patient request [...] 0 Refills, Maintenance, 03/16/22 14:35:00 EDT, Capsule, [facility], Partial fill upon patient request if the prescription is for a schedule II opioid drug., 169, cm, 03/16/22 14:07:00... Start Date: 03/16/22 Status: Ordered insulin aspart 100 units/mL subcutaneous solution = 20 units, Subcutaneous Injection, 3 times a day before meals, # 10 mL, 11 Refills, Maintenance, 03/10/22 9:06:00 EDT, Solution, [facility] #[id number], Partial fill upon patient request if theprescription [...] tablet, 11 Refills, Maintenance, 03/09/22 14:23:00 EDT, [facility], resent - not recvd, 169, cm, 03/09/22 13:46:00 EDT, Height, 104.9, kg, 03/04/22 2:58:00 EDT, Dry Weight Start Date: 03/09/22 Status: Ordered Lantus 100 u/ml subcutaneous solution = 30 units, Subcutaneous Injection, 2 times a day, # 10 mL, 5 Refills, Maintenance, 03/10/22 9:05:00 EDT, Solution, [facility] #[id number], Partial fill upon patient request if the prescription is for a schedule II opioid drug., 169, cm, 03/09/22... Start Date: 03/10/22 Status: Ordered lisinopril 40 mg oral tablet 1 tablet = 40 mg, By Mouth, Daily, # 30 tablet, 5 Refills, Maintenance, 03/10/22 9:03:00 EDT, Tablet, [facility] #[id number], Partial fill upon patient request if the [...] 0 Refills, Maintenance, 03/09/22 14:21:00 EDT, Gel, [facility] Partial fill upon patient request if the p... Start Date: 03/09/22 Status: Ordered traZODone 300 mg oral tablet 1 tablet = 300 mg, By Mouth, Daily at bedtime Start Date: 03/03/22 Status: Ordered Trulicity Pen 3 mg/0.5 mL subcutaneous solution See Instructions, ADMINISTER 0.5 ML UNDER THE SKIN EVERY WEEK. ROTATE INJECTION SITES, # 2 mL, 11 Refills, 03/09/22 14:22:00 EDT, [facility] 169, cm, 03/09/22 13:46:00 EDT, Height, 104.9, kg, 03/04/22 2:58:00 EDT, Dry Weight Start Date: 03/09/22 Status: Ordered Tylenol Extra Strength 500 mg oral tablet 2 tablet = 1,000 mg, By Mouth, Every 6 hours, prn pain, # 100 tablet, 0 Refills, Maintenance, 03/16/22 14:30:00 EDT, [facility] Partial fill upon patient request if the prescription is for a schedule II opioid drug., 169, cm, 03/16/22... Start Date: 03/16/22 Status: Ordered Ventolin HFA 108 mcg/inh inhalation aerosol with adapter 1 puffs, Inhalation, 4 times a day, PRN NEEDED FOR WHEEZING, # 18 Gm, 0 Refills, [facility] #[id number], 170, cm, 01/11/22 9:39:00 EST, Height Start [...] Active Obese class II(Confirmed) Active BHN/CCA/AUDRA-Mignon Peters [phone]/Health long-term active care coordination(Confirmed) Active Peripheral vascular disease(Confirmed) Active Uncontrolled type 1 diabetes mellitus with hyperglycemia, with long-term current use of insulin(Confirmed) Active Umbilical hernia(Confirmed) Active 1per 2017 and 2019 [facility] notes Social History Social History Type Response Smoking Status Never (less than 100 in lifetime) entered on: 09/03/19 Sex 1per pt
--- OUTSIDE RECORDS SUMMARY | 2023-02-20 15:20 | XMS_ITS | Continuity of Care Document ---
Author Name Unknown Organization [facility] Address [address] [place] [address]- Care Team Providers Care Vp Revenue Cycle Name Role Phone Tom GEORGES Meagan Connolly Primary Care Physici an Encounter [facility] Date(s): 02/02/20 - 02/09/20 [facility] [address] [place] [address] [facility] Attending Physician: Pieter MOSHER, Maurisio Santos Admitting Physician: Luis F Rowland MD Allergies, [...] Note: VIS GIVEN-DATED 05/30/11 2Result Comment: LOT [id number] EXP 04 MAY 2010 3Admin Note: VIS [...] 02/03/20 12:39:00 EDT, Route to Pharmacy Electronically, [facility] #[id number], 170, cm, 12/16/19 10:11:00 EST, Height, 100.5, [...] 03/06/19 17:12:53 EDT, Route to Pharmacy Electronically, [id number], [facility] [id number] Start Date: 03/06/19 Status: Ordered insulin glargine 100 u/ml subcutaneous solution See Instructions, 40 units in the MORNING and 40 units AT BEDTIME Subcutaneous Injection dx E11.9 Rotate injection sites, # 60 mL, 1 Refills, Maintenance, 02/09/20 16:59:00 EDT, Solution, [facility] #[id number], 170, cm, 12/16/19 10:11:00 EST,... Start Date: 02/09/20 Status: Ordered Insulin Syringe, BD Ultra-Fine 0.5 cc 31 G x 8 mm (5/16in) See Instructions, # 150 each, Refills 11, Tot. Refills 11, Maintenance, use as directed for Type 2 Diabetes Mellitus to admisiter insulin four times a day. Dx; E11.9, 05/13/19 13:22:55 EDT, pt was transferred to [facility], all meds left beh... Start Date: 05/13/19 Stop Date: 05/07/20 Status: Ordered lisinopril 40 mg oral tablet 1 tablet = 40 mg, By Mouth, Daily, # 90 tablet, 4 Refills, Maintenance, 02/03/20 12:39:00 EDT, Tablet, [facility] #[id number], 170, cm, 12/16/19 10:11:00 EST, Height, 100.5, kg, 05/30/19 9:39:00EDT, Dry Weight Start Date: 02/03/20 Stop Date: 04/28/21 Status: Ordered Melatonin 5 mg oral tablet 0 Refills, Maintenance, 01/29/19 10:09:09 EDT Start Date: 01/29/19 Status: Ordered meloxicam 5 mg oral capsule 1 capsule = 5 mg, By Mouth, Daily, # 5 capsule, 0 Refills, Maintenance, 02/03/20 10:30:00 EDT, Capsule, [facility] #[id number], 170, cm, 12/16/19 10:11:00 EST, Height, 100.5, kg, 05/30/19 9:39:00 EDT, Dry Weight Start Date: 02/03/20 Stop Date: 02/08/20 Status: Ordered NovoLOG 100 units/mL injectable solution = 20 units, Subcutaneous Infusion, 3 times a day before meals, replaces humalog, # 50 mL, 1 Refills, Maintenance, 02/09/20 16:58:00 EDT, [facility] #[id number], 170, cm, 12/16/19 10:11:00 EST, Height, 100.5, kg, 05/30/19 9:39:00 EDT, Dry Weight Start Date: 02/09/20 Status: Ordered OXcarbazepine 300 mg oral tablet TK 1 T PO BID Start Date: 01/29/19 Status: Ordered PARoxetine 40 mg oral tablet TK 1 T PO HS Start Date: 01/29/19 Status: Ordered Pen [place], 31 G x 5 mm BD Ultra [...] 5 Refills, Maintenance, 02/03/20 10:19:00 EDT, [id number], 170, cm, 12/16/19 10:11:00 EST, Height, 100.5, [...] Umbilical hernia(Confirmed) Active 1per 2016 and 2018 [facility] notes Social History Social History Type Response Smoking Status Never (less than 100 in lifetime) entered on: 09/03/19 Sex Female 1per pt
--- OUTSIDE RECORDS SUMMARY | 2023-02-20 15:20 | XMS_ITS | Continuity of Care Document ---
Author Name Unknown Organization [facility] Address [address] [place] [address]- Care Team Providers Care Junior Sales Representative Name Role Phone Josef MOSHER, Mamie Patterson Primary Care Physician [place] [facility]/11[place]22 - 02/24/22 [facility] [address], [place] [address] Attending Physician: Arlette Galloway NP Admitting Physician: Nilesh DONIS, Arlette Allergies, Adverse Reactions, Alerts Substance Reaction Severity [...] Note: VIS GIVEN-DATED 05/30/11 2Result Comment: LOT [id number] EXP 04 MAY 2010 3Admin Note: VIS [...] 12/29/21 10:02:00 EST, Route to Pharmacy Electronically, [facility] #[id number], 170, cm, 07/28/21 10:50:00 EDT, Height Start Date: 12/29/21 Stop Date: 03/24/23 Status: Ordered atorvastatin 10 mg oral tablet 1 tablet, By Mouth, Daily, # 90 tablet, 1 Refills, Maintenance, 12/13/21 19:21:00 EST, [facility] #[id number], 170, cm, 07/28/21 10:50:00 EDT, Height Start [...] 12/29/21 10:02:00 EST, Route to Pharmacy Electronically, [facility] #[id number], Partial fill upon patientrequest if the prescription [...] tablet, 11 Refills, Maintenance, 02/08/22 9:43:00 EDT, [facility] #[id number], resent - not recvd, 170, cm, 02/08/22 9:14:00 EDT, Height Start Date: 02/08/22 Status: Ordered Lantus Solostar Pen 100 units/mL subcutaneous solution = 45 units, Subcutaneous Infusion, 2 times a day, CHANGED BACK TO PEN- per pt request, 90 day supply, # 5 each, 11 Refills, Maintenance, 02/08/22 9:52:00 EDT, [facility] #[id number], Partial fill upon patient request if the prescription is for a... Start Date: 02/08/22 Stop Date: 01/23/25 Status: Ordered lidocaine 5% topical ointment 1 application, Topically, 3 times a day, wash hands thoroughly after application, prn pain, # 50 Gm, 0 Refills, Maintenance, 01/11/22 9:49:00 EST, [facility]int[facility], [id number], Partial fill upon patient request if the prescription is for a sc... Start Date: 01/11/22 Status: Ordered lisinopril 40 mg oral tablet 1 tablet = 40 mg, By Mouth, Daily, # 90 tablet, 4 Refills, Maintenance, 07/20/21 9:25:00 EDT, Tablet, [facility] #[id number], 170, cm, 07/20/21 8:57:00 EDT, Height Start Date: 07/20/21 Stop Date: 10/13/22 Status: Ordered [facility] Refills 0, Maintenance, PLEASE KEEP MEDICATIONS AT ONE PHARMACY- currently at [facility], 02/09/22 16:49:00 EDT, Supply Start Date: 02/09/22 Status: Ordered NovoLOG 100 units/mL injectable solution See Instructions, ADMINISTER 20 UNITS UNDER THE SKIN THREE TIMES DAILY BEFORE MEALS 90 DAY SUPPLY REQUESTED, # 30 mL, 2 Refills, [id number], 170, cm, 07/28/21 10:50:00 EDT, Height Start [...] 2 mL, 11 Refills, 02/15/22 11:38:00 EDT, [facility] #[id number], 170, cm, 02/08/22 9:46:00 EDT, Height Start Date: 02/15/22 Status: Ordered Ventolin HFA 108 mcg/inh inhalation aerosol with adapter 1 puffs, Inhalation, 4 times a day, PRN NEEDED FOR WHEEZING, # 18 Gm, 0 Refills, [facility] #[id number], 170, cm, 01/11/22 9:39:00 EST, Height Start [...] Active Obese class II(Confirmed) Active BHN/CCA/AUDRA-Mignon Peters [phone]/Health fpc active care coordination(Confirmed) Active Peripheral vascular disease(Confirmed) Active Umbilical hernia(Confirmed) Active 1per 2016 and 2019 [facility] notes Social History Social History Type Response Smoking Status Never (less than 100 in lifetime) entered on: 09/03/19 Sex Female 1per pt
--- OUTSIDE RECORDS SUMMARY | 2023-02-20 15:20 | XMS_ITS | Continuity of Care Document ---
Author Name Unknown Organization [facility] Address [address] [place] [address]- Care Team Providers Care Ground Crewman Mission Support Name Role Phone Olivier MOSHER, Allegra Primary Care Physician Encounter [facility] Date(s): 12/04/22 - 01/03/23 [facility] [address] [place] [id number] Allergies, Adverse Reactions, Alerts Substance Reaction Severity Status ibuprofen ABD PAIN Active morphine Vomiting and itchy Active traMADol Itchy, Hives Active Immunizations Given and Recorded Vaccine Date Status Refusal Reason SARS-CoV-2 mRNA (ygdufii-cmit-sekrn) vax 02/22/22 Recorded SARS-CoV-2 (COVID-19) mRNA BNT-162b2 [...] Note: VIS GIVEN-DATED 05/30/11 2Result Comment: LOT [id number] EXP 04 MAY 2010 3Admin Note: VIS [...] 04/24/22 9:05:00 EDT, Route to Pharmacy Electronically, [facility], Partial fill upon patient request if the prescription is for a schedule II opio... Start Date: 04/24/22 Status: Ordered ammonium lactate 5% topical lotion 1 application, Topically, 2 times a day, # 240 Gm, 0 Refills, Maintenance, 05/01/22 12:34:00 EDT, Lotion, [facility]/pharmacy #[id number], Partial fill upon patient request if the prescription is for a schedule II opioid drug., 1 application Topically 2 times a da... Start Date: 05/01/22 Stop Date: 05/31/22 Status: Ordered aspirin 81 mg oral delayed release tablet 81 mg, By Mouth, Daily, # 30 tablet, Refills 2, Tot. Refills 2, Maintenance, 12/25/22 11:05:00 EST,Route to Pharmacy Electronically, [facility]/pharmacy #[id number], Partial fill upon patient request if the prescription is for a schedule II opioid drug., 169, cm,... Start Date: 12/25/22 Stop Date: 03/25/23 Status: Ordered atorvastatin 40 mg oral tablet 1 tablet = 40 mg, By Mouth, Daily, # 90 tablet, 2 Refills, Maintenance, 04/24/22 9:41:00 EDT, Tablet, [facility], Partial fill upon patient request if [...] 01/22/23 16:13:00 EDT, Route to Pharmacy Electronically, [facility] [...] 03/16/22 14:30:00 EDT, Route to Pharmacy Electronically, [facility], Partial fill upon patient request if [...] 0 Refills, Maintenance, 09/21/22 11:57:00 EST, Tablet, [facility]/pharmacy #[id number], Partial fill upon [...] 10/16/22 10:25:00 EST, Route to Pharmacy Electronically, [facility] #[id number], Partial fill upon patientrequest if the prescription [...] each, 0 Refills, Maintenance, 01/03/23 15:48:00 EST, [facility]/pharmacy #[id number], Partial fill upon [...] 09/20/22 11:19:00 EST, Route to Pharmacy Electronically, [facility]/pharmacy #[id number], Partial fillupon patient request if the prescription is for a s... Start Date: 09/20/22 Status: Ordered levoFLOXacin 250 mg oral tablet 1 tablet = 250 mg, By Mouth, Every 24 hours, # 14 tablet, 0 Refills, Maintenance, 09/20/22 11:28:00EST, Tablet, [facility]/pharmacy #[id number], Partial fill upon patient request if the prescription is for a schedule II opioid drug., 169, cm, 09/20/22 9:22:00 EST... Start Date: 09/20/22 Stop Date: 10/04/22 Status: Ordered lisinopril 10 mg oral tablet 10 mg, 1, tablet, By Mouth, Daily, # 90 tablet, Refills 0, Tot. Refills 0, Maintenance, 11/30/22 8:10:00 EST, Route to Pharmacy Electronically, [facility]/pharmacy [...] tablet, 0 Refills, Maintenance, 01/01/23 21:26:00 EST, [facility]/pharmacy #[id number], Partial fill upon patient request if the prescription is for a schedule II opioid drug., 169, cm, 11/28/22... Start Date: 01/01/23 Status: Ordered oxyCODONE 10 mg oral tablet 1 tablet = 10 mg, By Mouth, Every 12 hours, [place] PAT REVIEWED NO driving, # 24 tablet, 0 Refills, Maintenance, 11/28/22 13:29:00 EST, [facility]/pharmacy #[id number], Partial fill upon patient request if the prescription is for a schedule II opioid drug., 169,... Start Date: 11/28/22 Status: Ordered PARoxetine 40 mg oral tablet 40 mg, 1, tablet, By Mouth, Daily, Refills 0, Maintenance, 01/11/22 9:43:00 EST Start Date: 01/11/22 Status: Ordered Pen Totz, 31 G x 5 mm BD Ultra [...] 04/24/22 9:03:00 EDT, Route to Pharmacy Electronically, [facility], Partial fill upon patient request if [...] 0 Refills, Maintenance, 11/22/22 12:11:00 EST, Ointment, [facility]/pharmacy #[id number], Partial fill upon [...] Active Morbid obesity Confirmed Active BHN/CCA/CP- [facility] [id number] jail active care coordination Confirmed Active Peripheral vascular disease - right SFA angioplasty/right great toe amputation 2021 Confirmed Active Severe obesity (BMI 35.0-39.9) with comorbidity Confirmed Active Umbilical hernia Confirmed Active 1per 2016 and 2019 [facility] notes Social History Social History Type Response Smoking Status Never (less than 100 in lifetime) entered on: 09/03/19 Sex 1per pt Patient Care team information Care Team Personnel Name: Allegra Aguayo MD Position: [facility] Resident Member Role: PCP Address: Address: [address] [place] [id number]- Name: Vera Locke RN Position: S RN Member Role: Primary Care Nurse Name: Baljit Martínez RN Position: [facility] RN Member Role: Primary Care Nurse Name: Sabine Guthrie RN Position: [facility] RN Member Role: Primary Care Nurse Name: Aditi Hernandez RN Position: [facility] RN Member Role: Primary Care Nurse Name: Piyush Moore RN Position: [facility] RN Member Role: Primary Care Nurse Name: Mis Vences RN Position: [facility] RN Member Role: Primary Care Nurse Name: Angie Lopez RN Position: [facility] RN Member Role: Primary Care Nurse Name: Lizzie Estrada RN Position: [facility] Onco RN Member Role: Primary Care Nurse Care Team Related Persons Name: MIKEY SEAY Address: home [address] [address] Name: MIKEY AYALA Address: home [address] [place] [address] Name: TANIA COPPOLA Address: home [address] [place] [address] Name: TANIA MUÑIZ Address: home [address] [place] [id number]
--- OUTSIDE RECORDS SUMMARY | 2023-02-20 15:20 | XMS_ITS | Continuity of Care Document ---
Author Name Unknown Organization [facility] Address [address] [place] [address]- Care Team Providers Care Sap Bi Architect Name Role Phone Olivier MOSHER, Allegra Primary Care Physician [phone] Encounter [facility] R [id number] Date(s): 08/29/22 - 10/25/22 [facility] [address] [place], [place] [address] Attending Physician: Victor Hugo MOSHER, Aditi Kilgore Admitting Physician: Victor Hugo MOSHER, Aditi Kilgore Allergies, Adverse Reactions, Alerts Substance Reaction Severity Status ibuprofen ABD PAIN Active morphine Vomiting and itchy Active traMADol Itchy, Hives Active Immunizations Given and Recorded Vaccine Date Status Refusal Reason SARS-CoV-2 mRNA (lnlzmby-odgd-lajis) vax 02/22/22 Recorded SARS-CoV-2 (COVID-19) mRNA BNT-162b2 [...] Note: VIS GIVEN-DATED 05/30/11 2Result Comment: LOT [id number] EXP 04 MAY 2010 3Admin Note: VIS [...] 04/24/22 9:05:00 EDT, Route to Pharmacy Electronically, [facility], Partial fill upon patient request if the prescription is for a schedule II opio... Start Date: 04/24/22 Status: Ordered ammonium lactate 5% topical lotion 1 application, Topically, 2 times a day, # 240 Gm, 0 Refills, Maintenance, 05/01/22 12:34:00 EDT, Lotion, [facility]/pharmacy #[id number], Partial fill upon patient request if the [...] 05/13/22 16:40:00 EDT, Route to Pharmacy Electronically, [facility], Partial fill upon patient request if the prescription is... Start Date: 05/13/22 Stop Date: 11/09/22 Status: Ordered aspirin 81 mg oral delayed release tablet 81 mg, By Mouth, Daily, # 30 tablet, Refills 0, Tot. Refills 0, Maintenance, 11/09/22 16:40:00 EST,Route to Pharmacy Electronically, [facility]/pharmacy #[id number], Partial fill upon patient request if the prescription is for a schedule II opioid drug., 169, cm,... Start Date: 11/09/22 Stop Date: 12/09/22 Status: Ordered atorvastatin 40 mg oral tablet 1 tablet = 40 mg, By Mouth, Daily, # 90 tablet, 2 Refills, Maintenance, 04/24/22 9:41:00 EDT, Tablet, [facility], Partial fill upon patient request [...] Route to Pharmacy Electronically, [facility]/pharmacy #[id number], Partial fill upon patient request if the prescription is for a schedule II opi... Start Date: 07/26/22 Stop Date: 01/22/23 Status: Ordered Colace sodium 100 mg oral capsule 100 mg, 1, capsule, By Mouth, 2 times a day, PRN, # 60 capsule, Refills 0, Tot. Refills 0, Maintenance, for constipation, 03/16/22 14:30:00 EDT, Route to Pharmacy Electronically, [facility], Partial fill upon patient request [...] 09/21/22 11:57:00 EST, Tablet, [facility]/pharmacy #[id number], Partial fill upon patient request if the [...] 10/16/22 10:25:00 EST, Route to Pharmacy Electronically, [facility] #[id number], Partial fill upon patientrequest if the prescription [...] 10/16/22 8:19:00 EST, Solution, [facility]/pharmacy #[id number], Partial fill upon patient request [...] Route to Pharmacy Electronically, [facility]/pharmacy #[id number], Partial fillupon patient request if the prescription is for a s... Start Date: 09/20/22 Status: Ordered levoFLOXacin 250 mg oral tablet 1 tablet = 250 mg, By Mouth, Every 24 hours, # 14 tablet, 0 Refills, Maintenance, 09/20/22 11:28:00EST, Tablet, [facility]/pharmacy #[id number], Partial fill upon patient request if the prescription is for a schedule II opioid drug., 169, cm, 09/20/22 9:22:00 EST... Start Date: 09/20/22 Stop Date: 10/04/22 Status: Ordered lisinopril 10 mg oral tablet 10 mg, 1, tablet, By Mouth, Daily, # 90 tablet, Refills 1, Tot. Refills 1, Maintenance, 10/16/22 10:24:00 EST, Route to Pharmacy Electronically, [facility] #[id number], Partial fill upon patientrequest if the prescription is for a schedule II op... Start Date: 10/16/22 Stop Date: 04/14/23 Status: Ordered NovoLOG FlexPen 100 units/mL injectable solution = 20 units, Subcutaneous Injection, 3 times a day before meals, INJECT 20 UNITS INTO SKIN THREE TIMES DAILY BEFORE A MEAL, # 15 mL, 10 Refills, Maintenance, 08/01/22 16:09:00 EDT, [facility], 169, cm, 08/01/22 14:14:00 EDT, [...] 04/24/22 9:03:00 EDT, Route to Pharmacy Electronically, [facility], Partial fill upon patient request if the prescription is for a schedule II opio... Start Date: 04/24/22 Status: Ordered ProAir HFA 90 mcg/inh inhalation aerosol 1 puffs, Inhalation, Every 4 hours, PRN as needed for wheezing, # 18 Gm, 0 Refills, Maintenance, 10/03/22 6:38:00 EST, Aerosol, [facility] #[id number], Partial fill upon patient request if the [...] 10/16/22 13:14:00 EST, Solution, [facility]/pharmacy #[id number], Partial fill upon patient request if the prescription is for a schedule II opioid drug., 169, cm, 10/09/22 8:39... Start Date: 10/16/22 Status: Ordered Ventolin HFA 108 mcg/inh inhalation aerosol with adapter 2 puffs, Inhalation, Every 6 hours, PRN Wheezing/Shortness of Breath, # 8 Gm, 1 Refills, Maintenance, 05/30/22 10:56:00 EDT, [facility], Partial fill upon patient request [...] Obese class II Confirmed Active BHN/CCA/CP- [facility] [id number] correction active care coordination Confirmed Active Peripheral vascular disease - right SFA angioplasty/right great toe amputation 2021 Confirmed Active Umbilical hernia Confirmed Active 1per 2016 and 2018 [facility] notes Social History Social History Type Response Smoking Status Never (less than 100 in lifetime) entered on: 09/03/19 Sex 1per pt Patient Care team information Care Team Personnel Name: Allegra Aguayo MD Position: [facility] Resident Member Role: PCP Address: Address: [address] [place] [address] Name: Vera Locke RN Position: S RN [...] Persons Name: MIKEY SEAY Address: home [address] [address] Name: MIKEY AYALA Address: home [address] [place] [address] Name: TANIA COPPOLA Address: home [address] [place] [id number] Name: TANIA MUÑIZ Address: home [address] [place] [id number]
--- OUTSIDE RECORDS SUMMARY | 2023-02-20 15:20 | XMS_ITS | Continuity of Care Document ---
Author Name Unknown Organization [facility] Address [address] [place] [address]- Care Team Providers Care Telesales Representative Name Role Phone Josef MOSHER, Mamie Patterson Primary Care Physician [phone] Encounter [facility] Date(s): 02/06/22 - 03/08/22 [facility] [address] [place], [place] [address] Allergies, Adverse Reactions, Alerts Substance Reaction Severity Status ibuprofen ABD PAIN Active morphine Vomiting and itchy Active traMADol Itchy, Hives Active Immunizations Given and Recorded Vaccine Date Status Refusal Reason SARS-CoV-2 mRNA (dcaklut-wyxi-tycjq) vax 02/22/22 Recorded SARS-CoV-2 (COVID-19) mRNA BNT-162b2 [...] Note: VIS GIVEN-DATED 05/30/11 2Result Comment: LOT [id number] EXP 04 MAY 2010 3Admin Note: VIS [...] 03/17/22 23:00:00 EDT, 03/06/22 23:00:00 EDT, Tablet, [facility], Partial fill upon patient request if the prescription is for a schedule II opioid drug., 169,... Start Date: 03/06/22 Stop Date: 03/17/22 Status: Ordered atorvastatin 10 mg oral tablet 1 tablet, By Mouth, Daily, # 90 tablet, 1 Refills, Maintenance, 12/13/21 19:21:00 EST, [facility] #[id number], 170, cm, 07/28/21 10:50:00 EDT, Height Start [...] tablet, 11 Refills, Maintenance, 02/08/22 9:43:00 EDT, [facility] #[id number], resent - not recvd, 170, cm, 02/08/22 [...] 03/06/22 15:17:00 EDT, Route to Pharmacy Electronically, [facility], Partial fill upon patient request if the prescription is for a schedule II opioi... Start Date: 03/06/22 Stop Date: 04/05/22 Status: Ordered NovoLOG 100 units/mL injectable solution [...] 03/06/22 15:04:00 EDT, Route to Pharmacy Electronically, [facility], Partial fill upon patient... Start Date: 03/06/22 Stop Date: 03/09/22 Status: Ordered PARoxetine 40 mg oral tablet [...] 0 Refills, Maintenance, 03/06/22 15:06:00 EDT, Gel, [facility], Partial fill upon patient [...] 2 mL, 11 Refills, 02/15/22 11:38:00 EDT, [facility] #[id number], 170, cm, 02/08/22 9:46:00 EDT, Height Start Date: 02/15/22 Status: Ordered Ventolin HFA 108 mcg/inh inhalation aerosol with adapter 1 puffs, Inhalation, 4 times a day, PRN NEEDED FOR WHEEZING, # 18 Gm, 0 Refills, [facility] #[id number], 170, cm, 01/11/22 9:39:00 EST, Height Start [...] Active Obese class II(Confirmed) Active BHN/CCA/AUDRA-Mignon Peters [phone]/[facility] active care coordination(Confirmed) Active Peripheral vascular disease(Confirmed) Active Umbilical hernia(Confirmed) Active 1per 2016 and 2019 [facility] notes Social History Social History Type Response Smoking Status Never (less than 100 in lifetime) entered on: 09/03/19 Sex 1per pt
--- OUTSIDE RECORDS SUMMARY | 2023-02-20 15:20 | XMS_ITS | Continuity of Care Document ---
Author Name Unknown Organization [facility] Address [address] [place] [address]- Care Team Providers Care Certified Cytotechnologist Name Role Phone Josef MOSHER, Mamie Patterson Primary Care Physician Encounter [facility] Date(s): 03/07/22 - 04/22/22 [facility] [address] [place] [address]- Attending Physician: Luis F Rowland MD Admitting Physician: Luis F Rowland MD Allergies, Adverse Reactions, Alerts Substance Reaction Severity Status ibuprofen ABD PAIN Active morphine Vomiting and itchy Active traMADol Itchy, Hives Active Immunizations Given and Recorded Vaccine Date Status Refusal Reason SARS-CoV-2 mRNA (pmkpgub-dbma-vnvnp) vax 02/22/22 Recorded SARS-CoV-2 (COVID-19) mRNA BNT-162b2 [...] Note: VIS GIVEN-DATED 05/30/11 2Result Comment: LOT [id number] EXP 04 MAY 2010 3Admin Note: VIS [...] 03/10/22 9:04:00 EDT, Route to Pharmacy Electronically, [facility] #[id number], Partial fill upon patient request if the prescription is for a schedule II opi... Start Date: 03/10/22 Status: Ordered aspirin 81 mg oral delayed release tablet 81 mg, By Mouth, Daily, # 30 tablet, Refills 0, Tot. Refills 0, Maintenance, 04/13/22 16:40:00 EDT,Route to Pharmacy Electronically, [facility], Partial fill upon patient request if the prescription is for a schedule II opioid drug., 17... Start Date: 04/13/22 Stop Date: 05/13/22 Status: Ordered atorvastatin 10 mg oral tablet 1 tablet, By Mouth, Daily, # 90 tablet, 1 Refills, Maintenance, 12/13/21 19:21:00 EST, [facility] #[id number], 170, cm, 07/28/21 10:50:00 EDT, Height Start [...] 04/13/22 16:40:00 EDT, Route to Pharmacy Electronically, [facility], Partial fill upon patient request if the prescription is for a schedule... Start Date: 04/13/22 Stop Date: 05/13/22 Status: Ordered Colace sodium 100 mg oral capsule 100 mg, 1, capsule, By Mouth, 2 times a day, PRN, # 60 capsule, Refills 0, Tot. Refills 0, Maintenance, for constipation, 03/16/22 14:30:00 EDT, Route to Pharmacy Electronically, [facility], Partial fill upon patient request if [...] 04/06/22 14:48:00 EDT, Route to Pharmacy Electronically, [facility], Partial fill upon patient request if the prescription is for a schedule II opioi... Start Date: 04/06/22 Status: Ordered insulin aspart 100 units/mL subcutaneous solution = 20 units, Subcutaneous Injection, 3 times a day before meals, # 10 mL, 11 Refills, Maintenance, 03/10/22 9:06:00 EDT, [facility] #[id number], Partial fill upon patient request if theprescription [...] tablet, 11 Refills, Maintenance, 03/09/22 14:23:00 EDT, [facility], resent - not recvd, 169, cm, 03/09/22 13:46:00 EDT, Height, 104.9, kg, 03/04/22 2:58:00 EDT, Dry Weight Start Date: 03/09/22 Status: Ordered Lantus 100 u/ml subcutaneous solution = 30 units, Subcutaneous Injection, 2 times a day, # 10 mL, 5 Refills, Maintenance, 03/10/22 9:05:00 EDT, [facility] #[id number], Partial fill upon patient request if the [...] 04/06/22 14:47:00 EDT, Route to Pharmacy Electronically, [facility] 3, Partial fill upon patient [...] 0 Refills, Maintenance, 04/18/22 9:51:00 EDT, [facility]eros[facility] fill upon patient request [...] 0 Refills, Maintenance, 03/09/22 14:21:00 EDT, Gel, [facility] Partial fill upon patient request if the p... Start Date: 03/09/22 Status: Ordered traZODone 300 mg oral tablet 1 tablet = 300 mg, By Mouth, Daily at bedtime Start Date: 03/03/22 Status: Ordered Trulicity Pen 3 mg/0.5 mL subcutaneous solution See Instructions, ADMINISTER 0.5 ML UNDER THE SKIN EVERY WEEK. ROTATE INJECTION SITES, # 2 mL, 11 Refills, 03/09/22 14:22:00 EDT, [facility]., 169, cm, 03/09/22 13:46:00 EDT, Height, 104.9, kg, 03/04/22 2:58:00 EDT, Dry Weight Start Date: 03/09/22 Status: Ordered Problem List Condition Effective Dates Status Health Status Inform ant Abdominal pain(Confirmed) Active Storey's cyst of knee(Confirmed) Active Cholecystectomy(Confirmed) Active Diabetes mellitus(Confirmed) 07/2007 Active Diabetic peripheral neuropathy(Confirmed) Active Diabetic retinopathy - next due (Confirmed) 2016 Active Reading difficulty(Confirmed) Active Dyslipidemia(Confirmed) Active Hypertension(Confirmed) Active Microalbuminuria(Confirmed) Active Morbid obesity(Confirmed) Active Obese class II(Confirmed) Active BHN/CCA/AUDRA-Mignon Peters [phone]/[facility] active care coordination(Confirmed) Active Peripheral vascular disease(Confirmed) Active Uncontrolled type 1 diabetes mellitus with hyperglycemia, with long-term current use of insulin(Confirmed) Active Umbilical hernia(Confirmed) Active 1per 2016 and 2019 [facility] notes Social History Social History Type Response Smoking Status Never (less than 100 in lifetime) entered on: 09/03/19 Sex 1per pt
--- OUTSIDE RECORDS SUMMARY | 2023-02-20 15:20 | XMS_ITS | Continuity of Care Document ---
Author Name Unknown Organization [facility] Address [address] [place] [address]- Care Team Providers Care Abrasive Band Winder Name Role Phone Josef MOSHRE, Mamie Patterson Primary Care Physician [phone] [place] [facility] [place] 10[place]21 [facility] [address] [place] [address]- Allergies, Adverse Reactions, Alerts Substance Reaction Severity [...] Note: VIS GIVEN-DATED 05/30/11 2Result Comment: LOT [id number] EXP 04 MAY 2010 3Admin Note: VIS [...] 07/20/21 9:24:00 EDT, Route to Pharmacy Electronically, [facility] #[id number], 170, cm, 07/20/21 8:57:00 EDT, Height Start Date: 07/20/21 Stop Date: 10/13/22 Status: Ordered atorvastatin 10 mg oral tablet 1 tablet = 10 mg, By Mouth, Daily, # 90 tablet, 1 Refills, Maintenance, 05/05/21 10:09:00 EDT, [facility] #[id number], 170, cm, 12/21/20 9:18:00 EST, Height, 100.5, [...] 07/20/21 9:33:00 EDT, Route to Pharmacy Electronically, [facility] #[id number], Partial fill upon patient request if the prescription is for a schedule II opi... Start Date: 07/20/21 Stop Date: 10/18/21 Status: Ordered insulin glargine 100 units/mL subcutaneous solution See Instructions, Subcutaneous Infusion Daily 45 units sc twice daily dx E11.9, # 12 mL, 11 Refills, Maintenance, 07/28/21 11:33:00 EDT, [facility], Partial fill upon patient request if the [...] tablet, 11 Refills, Maintenance, 06/21/21 14:39:00 EDT, [facility] #[id number], 170, cm, 05/20/21 15:42:00 EDT, Height Start Date: 06/21/21 Status: Ordered Januvia 50 mg oral tablet 1 tablet = 50 mg, By Mouth, Daily, dose decreased, # 30 tablet, 11 Refills, Maintenance, 09/20/21 13:40:00 EST, Tablet, [facility] #[id number], Partial fill upon patient request if the prescription is for a schedule II opioid drug., 170, cm, 07/07... Start Date: 09/20/21 Status: Ordered lisinopril 40 mg oral tablet 1 tablet = 40 mg, By Mouth, Daily, # 90 tablet, 4 Refills, Maintenance, 07/20/21 9:25:00 EDT, Tablet, [facility] #[id number], 170, cm, 07/20/21 8:57:00 EDT, Height Start Date: 07/20/21 Stop Date: 10/13/22 Status: Ordered Melatonin 5 mg oral tablet 0 Refills, Maintenance, 01/29/19 10:09:09 EDT Start Date: 01/29/19 Status: Ordered NovoLOG 100 units/mL subcutaneous solution See Instructions, 28 units Subcutaneous Infusion 3 times a day before meals dxE11.9, # 48 mL, 11 Refills, Maintenance, 08/26/21 13:13:00 EDT, [facility], Partial fill upon patient request if the prescription is for a schedule II opioid... Start Date: 08/26/21 Status: Ordered OXcarbazepine 300 mg oral tablet TK 1 T PO BID Start Date: 01/29/19 Status: Ordered PARoxetine 40 mg oral tablet TK 1 T PO HS Start Date: 01/29/19 Status: Ordered Pen [place], 31 G x 5 mm BD Ultra Fine III See Instructions, # 150 each, Refills 11, Tot. Refills 11, Maintenance, use to inject insulin up tofive times daily dx e11.9, 10/21/20 15:55:00 EST, Supply, 170, cm, 05/20/20 14:48:00 EDT, Height, 100.5, kg, 05/30/19 9:39:00 EDT, Dry Weight Start Date: 10/21/20 Status: Ordered Pen [place], 31 G x 5 mm BD Ultra [...] EVERY WEEK, # 2 mL, 0 Refills, [facility] #[id number], 170, cm, 07/28/21 10:50:00 EDT, Height Start Date: 09/22/21 Status: Ordered Ventolin HFA 108 mcg/inh inhalation aerosol with adapter 1 puffs, Inhalation, 4 times a day, PRN for wheezing, # 8 Gm, 2 Refills, Maintenance, 09/22/21 11:41:00 EST, Aerosol, [facility] #[id number], Partial fill upon patient request if the [...] Microalbuminuria(Confirmed) Active Morbid obesity(Confirmed) Active BHN/CCA/AUDRA-Mignon Peters [phone]/Health [facility] active care coordination(Confirmed) Active Peripheral vascular disease(Confirmed) Active Umbilical hernia(Confirmed) Active 1per 2017 and 2019 [facility] notes Social History Social History Type Response Smoking Status Never (less than 100 in lifetime) entered on: 09/03/19 Sex Female 1per pt
--- OUTSIDE RECORDS SUMMARY | 2023-02-20 15:20 | XMS_ITS | Continuity of Care Document ---
Author Name Unknown Organization [facility] Address [address] [place] [address]- Care Team Providers Care Slab Conditioner Supervisor Name Role Phone ChristinaAntionejeni Meagan GEORGES Primary Care Physici an [facility]counter [facility] Date(s): 10/27/19 - 11/06/19 [facility] [address] [place] [address]- [facility] Attending Physician: Admtr, Ar8 Allergies, [...] Note: VIS GIVEN-DATED 05/30/11 2Result Comment: LOT [id number] EXP 04 MAY 2010 3Admin Note: VIS [...] 01/29/19 10:06:52 EDT, Route to Pharmacy Electronically, [id number], [facility] [id number] Start Date: 01/29/19 Stop Date: 01/24/20 Status: [...] 03/06/19 17:12:53 EDT, Route to Pharmacy Electronically, [id number], [facility] [address] Start Date: 03/06/19 Status: Ordered insulin glargine [...] 05/13/19 13:22:55 EDT, pt was transferred to [facility], all meds left beh... Start Date: 05/13/19 [...] HS Start Date: 01/29/19 Status: Ordered Pen [place], 31 G x 5 mm BD Ultra [...] Umbilical hernia(Confirmed) Active 1per 2016 and 2018 [facility] notes Social History Social History Type Response Smoking Status Never (less than 100 in lifetime) entered on: 09/03/19 Sex Female 1per pt
--- OUTSIDE RECORDS SUMMARY | 2023-02-20 15:20 | XMS_ITS | Continuity of Care Document ---
Author Name Unknown Organization [facility] Address [address] [place] [address]- Care Team Providers Care Orthopedics Nurse Name Role Phone Sangeetha MOSHER, Marcia Koroma Primary Care Physician Encounter [facility] Date(s): 12/16/20 - 01/15/21 [facility] [address] [place] [id number] Allergies, Adverse Reactions, Alerts Substance Reaction [...] Note: VIS GIVEN-DATED 05/30/11 2Result Comment: LOT [id number] EXP 04 MAY 2010 3Admin Note: VIS given Medications albuterol 90 mcg/inh inhalation powder 2 puffs, Inhalation, Every 6 hours, PRN as needed, # 1 each, 11 Refills, Maintenance, 12/08/20 11:02:00 EST, Powder, [id number] #[id number], 2 puffs Inhalation Every 6 hours,PRN:as needed, [...] 07/30/20 18:34:00 EDT, Route to Pharmacy Electronically, [facility] #[id number], 170, cm, 05/20/20 14:48:00 EDT, Height, 100.5, kg, 05/30/19 9:39:00 EDT, Dry... Start Date: 07/30/20 Stop Date: 07/25/21 Status: Ordered aspirin 81 mg oral delayed release tablet 81 mg, 1, tablet, By Mouth, Daily, # 30 tablet, Refills 11, Tot. Refills 11, Maintenance, 05/20/20 14:45:00 EDT, Route to Pharmacy Electronically, [facility] #[id number], 170, cm, 05/20/20 14:08:00 EDT, Height, 100.5, kg, 05/30/19 9:39:00 EDT, Start Date: 05/20/20 Status: Ordered atorvastatin 10 mg oral tablet 1 tablet = 10 mg, By Mouth, Daily, # 30 tablet, 11 Refills, Maintenance, 05/20/20 14:46:00 EDT, [facility] #[id number], 170, cm, 05/20/20 14:08:00 EDT, Height, 100.5, [...] 0 Refills, Maintenance, 09/02/20 14:20:00 EDT, Ointment, [id number], 1 application Topically 2 times a day, [...] 09/10/20 18:41:00 EST, pt was transferred to [facility]... Start Date: 09/10/20 Stop Date: 03/09/21 Status: Ordered Insulin Syringe, BD Ultra-Fine 0.5 cc 31 G x 8 mm (516in) See Instructions, # 150 each, Refills 11, Tot. Refills 11, Maintenance, use as directed for Type 2 Diabetes Mellitus to admisiter insulin four times a day. Dx; E11.9, 05/15/21 15:10:00 EDT, pt was transferred to [facility], all meds left [facility]... Start Date: 05/15/21 Stop Date: 05/10/22 Status: Ordered Lantus 100 u/ml subcutaneous solution = 40 units, Subcutaneous Infusion, 2 times a day, # 15 mL, 3 Refills, Maintenance, 12/16/20 14:02:00 EST, [facility][id number], 170, cm, 05/20/20 14:48:00 EDT, Height, 100.5, kg, 05/30/19 9:39:00 EDT, Dry Weight Start Date: 12/16/20 Stop Date: 04/15/21 Status: Ordered lisinopril 40 mg oral tablet 1 tablet = 40 mg, By Mouth, Daily, # 90 tablet, 4 Refills, Maintenance, 02/03/20 12:39:00 EDT, Tablet, [facility] #[id number], 170, cm, 12/16/19 10:11:00 EST, Height, 100.5, [...] mL, 1 Refills, Maintenance, 12/17/20 13:06:00 EST, [facility] #[id number], 170, cm, 05/20/2014:48:00 EDT, Height, 100.5, kg, 05/30/19 9:39:00 E... Start Date: 12/17/20 Status: Ordered OXcarbazepine 300 mg oral tablet TK 1 T PO BID Start Date: 01/29/19 Status: Ordered PARoxetine 40 mg oral tablet TK 1 T PO HS Start Date: 01/29/19 Status: Ordered Pen [place], 31 G x 5 mm BD Ultra [...] 1 Refills, Maintenance, 12/21/20 10:40:00 EST, Tablet, [facility] #[id number], Partial fill upon patient request if the [...] 0 Refills, Maintenance, 05/20/20 15:09:00 EDT, Ointment, [facility] #58274, 1 application Topically 2 times a day,x14 days,Instr:apply a thin film; to aff... Start Date: 05/20/20 Stop Date: 06/03/20 Status: Ordered Trulicity Pen 0.75 mg/0.5 mL subcutaneous solution 0.5 mL = 0.75 mg, Subcutaneous Injection, Every week, rotate injection sites, # 2 mL, 2 Refills, Maintenance, 01/03/21 13:20:00 EST, Solution, [facility][id number], Partial fill upon patient request if the prescription is for a schedule II opio... Start Date: 01/03/21 Status: Ordered Trulicity Pen 1.5 mg/0.5 mL subcutaneous solution 0.5 mL = 1.5 mg, Subcutaneous Injection, Every week, # 2.5 mL, 5 Refills, Maintenance, 01/25/21 8:56:00 EDT, [facility] #[id number], 170, cm, 05/20/20 14:48:00 EDT, Height, 100.5, [...] Microalbuminuria(Confirmed) Active Morbid obesity(Confirmed) Active BHN/KELVIN/AUDRA-Mignon Peters [phone]/Health [facility] active care coordination(Confirmed) Active Peripheral vascular disease(Confirmed) Active Umbilical hernia(Confirmed) Active 1per 2017 and 2018 [facility] notes Social History Social History Type Response Smoking Status Never (less than 100 in lifetime) entered on: 09/03/19 Sex Female 1per pt
--- OUTSIDE RECORDS SUMMARY | 2023-02-20 15:20 | XMS_ITS | Continuity of Care Document ---
Author Name Unknown Organization [facility] Address [address] [place] [address]- Care Team Providers Care Emergency Management Coordinator Name Role Phone Olivier MOSHER, Allegra Primary Care Physician [phone] Encounter [facility] [place](s): 01/01/23 - 01/31/23 [facility] [address] [place], [place] [address] Allergies, Adverse Reactions, Alerts Substance Reaction Severity Status ibuprofen ABD PAIN Active morphine Vomiting and itchy Active traMADol Itchy, Hives Active Immunizations Given and Recorded Vaccine Date Status Refusal Reason SARS-CoV-2 mRNA ([id number]) vax 02/22/22 Recorded SARS-CoV-2 (COVID-19) mRNA BNT-162b2 [...] Note: VIS GIVEN-DATED 05/30/11 2Result Comment: LOT [id number] EXP 04 MAY 2010 3Admin Note: VIS [...] 01/23/23 10:18:00 EDT, Route to Pharmacy Electronically, [facility] [...] 10/16/22 10:25:00 EST, Route to Pharmacy Electronically, [facility] #[id number], Partial fill upon patientrequest if the prescription is for a schedule II op... Start Date: 10/16/22 Status: Ordered Lantus Solostar Pen 100 units/mL subcutaneous solution See Instructions, Subcutaneous Injection, 30 units sc bid dx E11.9 dose increased 01/23/23, # 15 mL,11 Refills, Maintenance, 01/23/23 9:43:00 EDT, [facility] #[id number], Partial fill upon patient request if the prescription is for a schedule II opioid d... Start Date: 01/23/23 Stop Date: 01/18/24 Status: Ordered lisinopril 10 mg oral tablet 10 mg, 1, tablet, By Mouth, Daily, # 90 tablet, Refills 2, Tot. Refills 2, Maintenance, 01/23/23 10:15:00 EDT, Route to Pharmacy Electronically, [facility] [...] tablet, 0 Refills, Maintenance, 01/29/23 16:57:00 EDT, [id number], Partial fill upon patient request if the prescription is for a schedule II opioid drug., 169, cm, 01/23/23 13:31:00 EDT, Height... Start Date: 01/29/23 Status: Ordered PARoxetine 40 mg oral tablet 40 mg, 1, tablet, By Mouth, Daily, Refills 0, Maintenance, 01/11/22 9:43:00 EST Start Date: 01/11/22 Status: Ordered Pen [place], 31 G x 5 mm BD Ultra [...] Active Morbid obesity Confirmed Active BHN/CCA/CP- Angle [phone] alf active care coordination Confirmed Active Peripheral vascular disease - right SFA angioplasty/right great toe amputation 2021 Confirmed Active Severe obesity Confirmed Active Umbilical hernia Confirmed Active 1per 2016 and 2019 [facility] notes Social History Social History Type Response Smoking Status Never (less than 100 in lifetime) entered on: 09/03/19 Sex 1per pt Patient Care team information Care Team Personnel Name: Allegra Aguayo MD Position: [facility] Resident Member Role: PCP Address: Address: [address] [place] [address] Name: Baljit Martínez RN Position: [facility] RN Member Role: Primary Care Nurse Name: Sabine Guthrie RN Position: S RN Member Role: Primary Care Nurse Name: Aditi Hernandez RN Position: S RN Member Role: Primary Care Nurse Name: Piyush Moore RN Position: [facility] RN Member Role: Primary Care Nurse Name: Mis Vences RN Position: [facility] RN Member Role: Primary Care Nurse Name: Angie Lopez RN Position: [facility] RN Member Role: Primary Care Nurse Name: Lizzie Estrada RN Position: [facility] Onco RN Member Role: Primary Care Nurse Care Team Related Persons Name: MIKEY SEAY Address: home [address] [address] Name: MIKEY AYALA Address: home [address] [place] [address] Name: TANIA COPPOLA Address: home [address] [place] [address] Name: TANIA MUÑIZ Address: home [address] [place] [id number]
--- OUTSIDE RECORDS SUMMARY | 2023-02-20 15:20 | XMS_ITS | Continuity of Care Document ---
Author Name Unknown Organization [facility] Address [address] [place] [address]- Care Team Providers Care Grinding And Spraying Supervisor Name Role Phone Sangeetha MOSHER, Marcia Koroma Primary Care Physician [facility]counter [facility] Date(s): 07/19/20 - 08/18/20 [facility] [address] [place] [address]- [facility] Allergies, Adverse Reactions, Alerts Substance Reaction Severity [...] Note: VIS GIVEN-DATED 05/30/11 2Result Comment: LOT [id number] EXP 04 MAY 2010 3Admin Note: VIS [...] 07/30/20 18:34:00 EDT, Route to Pharmacy Electronically, [facility] #[id number], 170, cm, 05/20/20 14:48:00 EDT, Height, 100.5, kg, 05/30/19 9:39:00 EDT, Dry... Start Date: 07/30/20 Stop Date: 07/25/21 Status: Ordered aspirin 81 mg oral delayed release tablet 81 mg, 1, tablet, By Mouth, Daily, # 30 tablet, Refills 11, Tot. Refills 11, Maintenance, 05/20/20 14:45:00 EDT, Route to Pharmacy Electronically, [facility] #[id number], 170, cm, 05/20/20 14:08:00 EDT, Height, 100.5, kg, 05/30/19 9:39:00 EDT, Start Date: 05/20/20 Status: Ordered atorvastatin 10 mg oral tablet 1 tablet = 10 mg, By Mouth, Daily, # 30 tablet, 11 Refills, Maintenance, 05/20/20 14:46:00 EDT, [facility] #[id number], 170, cm, 05/20/20 14:08:00 EDT, Height, 100.5, [...] 03/06/19 17:12:53 EDT, Route to Pharmacy Electronically, [id number], [facility] [address] Start Date: 03/06/19 Status: Ordered Insulin Syringe, BD Ultra-Fine 0.5 cc 31 G x 8 mm (516in) See Instructions, # 150 each, Refills 11, Tot. Refills 11, Maintenance, use as directed for Type 2 Diabetes Mellitus to admisiter insulin four times a day. Dx; E11.9, 05/15/21 15:10:00 EDT, pt was transferred to [facility], all meds left beh... Start Date: [...] E11.9,05/20/20 15:10:00 EDT, pt was transferred to [facility]... Start Date: 05/20/20 Stop Date: 05/15/21 Status: Ordered Lantus 100 u/ml subcutaneous solution = 40 units, Subcutaneous Infusion, 2 times a day, # 15 mL, 3 Refills, Maintenance, 07/30/20 18:34:00 EDT, [facility] #[id number], 170, cm, 05/20/20 14:48:00 EDT, Height, 100.5, kg, 05/30/19 9:39:00 EDT, Dry Weight Start Date: 07/30/20 Stop Date: 11/27/20 Status: Ordered lidocaine 4% topical cream 1 application, Topically, Daily, for 30 days, # 30 Gm, 2 Refills, Acute 11/04/20 13:08:00 EST, 08/06/20 13:08:00 EDT, Cream, [facility] #44357, 1 application Topically Daily,x30 days, 170, cm, 05/20/20 14:48:00 EDT, Height, 100.5, kg, ... Start Date: 08/06/20 Stop Date: 11/04/20 Status: Ordered lisinopril 40 mg oral tablet 1 tablet = 40 mg, By Mouth, Daily, # 90 tablet, 4 Refills, Maintenance, 02/03/20 12:39:00 EDT, Tablet, [facility] #44379, 170, cm, 12/16/19 10:11:00 EST, Height, 100.5, kg, 05/30/19 9:39:00EDT, Dry Weight Start Date: 02/03/20 Stop Date: 04/28/21 Status: Ordered Melatonin 5 mg oral tablet 0 Refills, Maintenance, 01/29/19 10:09:09 EDT Start Date: 01/29/19 Status: Ordered NovoLOG 100 units/mL injectable solution = 20 units, Subcutaneous Infusion, 3 times a day before meals, replaces humalog, # 50 mL, 1 Refills, Maintenance, 07/29/20 11:23:00 EDT, [facility] #[id number], 170, cm, 05/20/20 14:48:00 EDT, Height, 100.5, [...] 0 Refills, Maintenance, 05/20/20 15:09:00 EDT, Ointment, [facility] #43607, 1 application Topically 2 times a day,x14 days,Instr:apply a thin film; to aff... Start Date: 05/20/20 Stop Date: 06/03/20 Status: Ordered Trulicity Pen 1.5 mg/0.5 mL subcutaneous solution 0.5 mL = 1.5 mg, Subcutaneous Injection, Every week, # 2.5 mL, 5 Refills, Maintenance, 07/29/20 8:56:00 EDT, Solution, [facility] #[id number], 170, cm, 05/20/20 14:48:00 EDT, Height, 100.5, [...]
--- OUTSIDE RECORDS SUMMARY | 2023-02-20 15:20 | XMS_ITS | Continuity of Care Document ---
Author Name Unknown Organization [facility] Address [address] [place] [address]- Care Team Providers Care Registration Scheduling Specialist Name Role Phone ChristinaMeagan Izaguirre DO Primary Care Physici an Encounter [facility] [place] Date(s): 03/31/20 - 04/07/20 [facility] [address] [place] [address]- [facility] Attending Physician: Cindy Bain MD Admitting Physician: Luis F Rowland MD [...] Note: VIS GIVEN-DATED 05/30/11 2Result Comment: LOT [id number] EXP 04 MAY 2010 3Admin Note: VIS [...] 02/03/20 12:39:00 EDT, Route to Pharmacy Electronically, [email or web address] #[id number], 170, cm, 12/16/19 10:11:00 EST, Height, 100.5, [...] 03/06/19 17:12:53 EDT, Route to Pharmacy Electronically, [id number], [id number] Start Date: 03/06/19 Status: Ordered insulin glargine 100 u/ml subcutaneous solution See Instructions, 40 units in the MORNING and 40 units AT BEDTIME Subcutaneous Injection dx E11.9 Rotate injection sites, # 60 mL, 1 Refills, Maintenance, 02/09/20 16:59:00 EDT, Solution, [email or web address] #[id number], 170, cm, 12/16/19 10:11:00 EST,... Start Date: 02/09/20 Status: Ordered Insulin Syringe, BD Ultra-Fine 0.5 cc 31 G x 8 mm (5/16in) See Instructions, # 150 each, Refills 11, Tot. Refills 11, Maintenance, use as directed for Type 2 Diabetes Mellitus to admisiter insulin four times a day. Dx; E11.9, 05/13/19 13:22:55 EDT, pt was transferred to [facility], all meds left beh... Start Date: 05/13/19 Stop Date: 05/07/20 Status: Ordered lisinopril 40 mg oral tablet 1 tablet = 40 mg, By Mouth, Daily, # 90 tablet, 4 Refills, Maintenance, 02/03/20 12:39:00 EDT, Tablet, [facility] #[id number], 170, cm, 12/16/19 10:11:00 EST, Height, 100.5, kg, 05/30/19 9:39:00EDT, Dry Weight Start Date: 02/03/20 Stop Date: 04/28/21 Status: Ordered Melatonin 5 mg oral tablet 0 Refills, Maintenance, 01/29/19 10:09:09 EDT Start Date: 01/29/19 Status: Ordered meloxicam 5 mg oral capsule 1 capsule = 5 mg, By Mouth, Daily, # 5 capsule, 0 Refills, Maintenance, 02/03/20 10:30:00 EDT, Capsule, [facility] #84991, 170, cm, 12/16/19 10:11:00 EST, Height, 100.5, kg, 05/30/19 9:39:00 EDT, Dry Weight Start Date: 02/03/20 Stop Date: 02/08/20 Status: Ordered NovoLOG 100 units/mL injectable solution = 20 units, Subcutaneous Infusion, 3 times a day before meals, replaces humalog, # 50 mL, 1 Refills, Maintenance, 02/09/20 16:58:00 EDT, [facility] #[id number], 170, cm, 12/16/19 10:11:00 EST, Height, 100.5, kg, 05/30/19 9:39:00 EDT, Dry Weight Start Date: 02/09/20 Status: Ordered OXcarbazepine 300 mg oral tablet TK 1 T PO BID Start Date: 01/29/19 Status: Ordered PARoxetine 40 mg oral tablet TK 1 T PO HS Start Date: 01/29/19 Status: Ordered Pen [place], 31 G x 5 mm BD [...] 5 Refills, Maintenance, 02/03/20 10:19:00 EDT, Solution, [facility] #[id number], 170, cm, 12/16/19 10:11:00 EST, Height, 100.5, [...] Umbilical hernia(Confirmed) Active 1per 2017 and 2019 [facility] notes Social History Social History Type Response Smoking Status Never (less than 100 in lifetime) entered on: 09/03/19 Sex Female 1per pt
--- OUTSIDE RECORDS SUMMARY | 2023-02-20 15:20 | XMS_ITS | Continuity of Care Document ---
Author Name Unknown Organization [facility] Address [address] [place] [address]- Care Team Providers Care Elementary School Teacher'S Aide Name Role Phone Olivier MOSHER, Allegra Primary Care Physician Encounter [facility] Date(s): 12/05/22 - 01/04/23 [facility] [address] [place] [id number] Allergies, Adverse Reactions, Alerts Substance Reaction Severity Status ibuprofen ABD PAIN Active traMADol Itchy, Hives Active morphine Vomiting and itchy Active Immunizations Given and Recorded Vaccine Date Status Refusal Reason SARS-CoV-2 mRNA (ojwzgxc-[id number]-iqhys) vax 02/22/22 Recorded SARS-CoV-2 (COVID-19) mRNA BNT-162b2 [...] Note: VIS GIVEN-DATED 05/30/11 2Result Comment: LOT [id number] EXP 04 MAY 2010 3Admin Note: VIS [...] 04/24/22 9:05:00 EDT, Route to Pharmacy Electronically, [facility], Partial fill upon patient request if the prescription is for a schedule II opio... Start Date: 04/24/22 Status: Ordered ammonium lactate 5% topical lotion 1 application, Topically, 2 times a day, # 240 Gm, 0 Refills, Maintenance, 05/01/22 12:34:00 EDT, Lotion, [facility]/pharmacy #[id number], Partial fill upon patient request if the prescription is for a schedule II opioid drug., 1 application Topically 2 times a da... Start Date: 05/01/22 Stop Date: 05/31/22 Status: Ordered aspirin 81 mg oral delayed release tablet 81 mg, By Mouth, Daily, # 30 tablet, Refills 2, Tot. Refills 2, Maintenance, 12/25/22 11:05:00 EST,Route to Pharmacy Electronically, [facility]/pharmacy #[id number], Partial fill upon patient request if the prescription is for a schedule II opioid drug., 169, cm,... Start Date: 12/25/22 Stop Date: 03/25/23 Status: Ordered atorvastatin 40 mg oral tablet 1 tablet = 40 mg, By Mouth, Daily, # 90 tablet, 2 Refills, Maintenance, 04/24/22 9:41:00 EDT, Tablet, [facility], Partial fill upon patient request if [...] 07/26/22 16:13:00 EDT, Route to Pharmacy Electronically, [facility]/pharmacy #[id number], Partial fill upon patient request if the pres... Start Date: 07/26/22 Stop Date: 01/22/23 Status: Ordered carvedilol 25 mg oral tablet 25 mg, 1, tablet, By Mouth, 2 times a day, # 60 tablet, Refills 2, Tot. Refills 2, Maintenance, 01/22/23 16:13:00 EDT, Route to Pharmacy Electronically, [facility]/pharmacy #[id number], Partial fill upon patient request if the prescription is for a schedule II opi... Start Date: 01/22/23 Stop Date: 04/22/23 Status: Ordered Colace sodium 100 mg oral capsule 100 mg, 1, capsule, By Mouth, 2 times a day, PRN, # 60 capsule, Refills 0, Tot. Refills 0, Maintenance, for constipation, 03/16/22 14:30:00 EDT, Route to Pharmacy Electronically, [facility], Partial fill upon patient request if [...] 0 Refills, Maintenance, 09/21/22 11:57:00 EST, Tablet, [facility]/pharmacy #[id number], Partial fill upon patient request if [...] 10/16/22 10:25:00 EST, Route to Pharmacy Electronically, [facility] #[id number], Partial fill upon patientrequest if the prescription [...] each, 0 Refills, Maintenance, 01/03/23 15:48:00 EST, [facility]/pharmacy #[id number], Partial fill upon patient request if the prescription is for a schedule II opioid drug., 169, cm, 11/28/22... Start Date: 01/03/23 Stop Date: 02/02/23 Status: Ordered Lasix 20 mg oral tablet 1, capsule, By Mouth, Once, take one pill daily for 3 days, # 3 tablet, Refills 0, Tot. Refills 0, Soft Stop, 09/20/22 11:19:00 EST, Route to Pharmacy Electronically, [facility]/pharmacy #[id number], Partial fillupon patient request if the prescription is for a s... Start Date: 09/20/22 Status: Ordered levoFLOXacin 250 mg oral tablet 1 tablet = 250 mg, By Mouth, Every 24 hours, # 14 tablet, 0 Refills, Maintenance, 09/20/22 11:28:00EST, Tablet, [facility]/pharmacy #[id number], Partial fill upon patient request if the prescription is for a schedule II opioid drug., 169, cm, 09/20/22 9:22:00 EST... Start Date: 09/20/22 Stop Date: 10/04/22 Status: Ordered lisinopril 10 mg oral tablet 10 mg, 1, tablet, By Mouth, Daily, # 90 tablet, Refills 0, Tot. Refills 0, Maintenance, 11/30/22 8:10:00 EST, Route to Pharmacy Electronically, [facility]/pharmacy #[id number], Partial fill upon patient request if [...] tablet, 0 Refills, Maintenance, 01/01/23 21:26:00 EST, [facility]/pharmacy #[id number], Partial fill upon patient request if the prescription is for a schedule II opioid drug., 169, cm, 11/28/22... Start Date: 01/01/23 Status: Ordered oxyCODONE 10 mg oral tablet 1 tablet = 10 mg, By Mouth, Every 12 hours, [place] PAT REVIEWED NO driving, # 24 tablet, 0 Refills, Maintenance, 11/28/22 13:29:00 EST, [facility]/pharmacy #[id number], Partial fill upon patient request if the prescription is for a schedule II opioid drug., 169,... Start Date: 11/28/22 Status: Ordered PARoxetine 40 mg oral tablet 40 mg, 1, tablet, By Mouth, Daily, Refills 0, Maintenance, 01/11/22 9:43:00 EST Start Date: 01/11/22 Status: Ordered Pen Gilmore, 31 G x 5 mm BD Ultra [...] 04/24/22 9:03:00 EDT, Route to Pharmacy Electronically, [facility], Partial fill upon patient request if [...] 0 Refills, Maintenance, 11/22/22 12:11:00 EST, Ointment, [facility]/pharmacy #[id number], Partial fill upon patient request if [...] Active Morbid obesity Confirmed Active BHN/CCA/CP- [facility] [id number] shelter active care coordination Confirmed Active Peripheral vascular disease - right SFA angioplasty/right great toe amputation 2021 Confirmed Active Severe obesity (BMI 35.0-39.9) with comorbidity Confirmed Active Umbilical hernia Confirmed Active 1per 2016 and 2019 [facility] notes Social History Social History Type Response Smoking Status Never (less than 100 in lifetime) entered on: 09/03/19 Sex 1per pt Patient Care team information Care Team Personnel Name: Allegra Aguayo MD Position: [facility] Resident Member Role: PCP Address: Address: [address] [place] [address]- Name: Vera Locke RN Position: S RN Member Role: Primary Care Nurse Name: Baljit Martínez RN Position: [facility] RN Member Role: Primary Care Nurse Name: Sabine Guthrie RN Position: [facility] RN Member Role: Primary Care Nurse Name: Aditi Hernandez RN Position: [facility] RN Member Role: Primary Care Nurse Name: Piyush Moore RN Position: [facility] RN Member Role: Primary Care Nurse Name: Mis Vences RN Position: [facility] RN Member Role: Primary Care Nurse Name: Angie Lopez RN Position: [facility] RN Member Role: Primary Care Nurse Name: Lizzie Estrada RN Position: [facility] Onco RN Member Role: Primary Care Nurse Care Team Related Persons Name: MIKEY SEAY Address: home [address] [address] Name: MIKEY AYALA Address: home [address] [place] [address] Name: TANIA COPPOLA Address: home [address] [place] [address] Name: TANIA MUÑIZ Address: home [address] [place] [id number]
--- OUTSIDE RECORDS SUMMARY | 2023-02-20 15:20 | XMS_ITS | Continuity of Care Document ---
Author Name Unknown Organization [facility] Address [address] [place] [address]- Care Team Providers Care Hot Water Heater Installer Name Role Phone Josef MOSHER, Mamie Patterson Primary Care Physician [place] [facility] [place] 02[place]08/22 [facility] [address] [place] [address]- Allergies, Adverse Reactions, Alerts Substance Reaction Severity [...] Note: VIS GIVEN-DATED 05/30/11 2Result Comment: LOT [id number] EXP 04 MAY 2010 3Admin Note: VIS [...] 12/29/21 10:02:00 EST, Route to Pharmacy Electronically, [facility] #[id number], 170, cm, 07/28/21 10:50:00 EDT, Height Start Date: 12/29/21 Stop Date: 03/24/23 Status: Ordered atorvastatin 10 mg oral tablet 1 tablet, By Mouth, Daily, # 90 tablet, 1 Refills, Maintenance, 12/13/21 19:21:00 EST, [facility] #[id number], 170, cm, 07/28/21 10:50:00 EDT, Height Start [...] 12/29/21 10:02:00 EST, Route to Pharmacy Electronically, [facility] #[id number], Partial fill upon patientrequest if the prescription [...] tablet, 11 Refills, Maintenance, 02/08/22 9:43:00 EDT, [facility] #[id number], resent - not recvd, 170, cm, 02/08/22 9:14:00 EDT, Height Start Date: 02/08/22 Status: Ordered Lantus Solostar Pen 100 units/mL subcutaneous solution = 45 units, Subcutaneous Infusion, 2 times a day, CHANGED BACK TO PEN- per pt request, 90 day supply, # 5 each, 11 Refills, Maintenance, 02/08/22 9:52:00 EDT, [facility] #[id number], Partial fill upon patient request if the prescription is for a... Start Date: 02/08/22 Stop Date: 01/23/25 Status: Ordered lidocaine 5% topical ointment 1 application, Topically, 3 times a day, wash hands thoroughly after application, prn pain, # 50 Gm, 0 Refills, Maintenance, 01/11/22 9:49:00 EST, Ointment, [facility] #[id number], Partial fill upon patient request if the prescription is for a sc... Start Date: 01/11/22 Status: Ordered lisinopril 40 mg oral tablet 1 tablet = 40 mg, By Mouth, Daily, # 90 tablet, 4 Refills, Maintenance, 07/20/21 9:25:00 EDT, Tablet, [facility] #[id number], 170, cm, 07/20/21 8:57:00 EDT, Height Start Date: 07/20/21 Stop Date: 10/13/22 Status: Ordered NovoLOG 100 units/mL injectable solution See Instructions, ADMINISTER 20 UNITS UNDER THE SKIN THREE TIMES DAILY BEFORE MEALS 90 DAY SUPPLY REQUESTED, # 30 mL, 2 Refills, [facility] #[id number], 170, cm, 07/28/21 10:50:00 EDT, Height Start [...] 2 mL, 11 Refills, 02/06/22 12:42:00 EDT, [facility] #[id number], 170, cm, 01/11/22 9:39:00 EST, Height Start Date: 02/06/22 Status: Ordered Ventolin HFA 108 mcg/inh inhalation aerosol with adapter 1 puffs, Inhalation, 4 times a day, PRN NEEDED FOR WHEEZING, # 18 Gm, 0 Refills, [facility] #[id number], 170, cm, 01/11/22 9:39:00 EST, Height Start [...] Obese class II(Confirmed) Active BHN/CCA/Luis Felipe Peters [phone]/Health alf active care coordination(Confirmed) Active Peripheral vascular disease(Confirmed) Active Umbilical hernia(Confirmed) Active 1per 2016 and 2019 [facility] notes Social History Social History Type Response Smoking Status Never (less than 100 in lifetime) entered on: 09/03/19 Sex Female 1per pt
--- OUTSIDE RECORDS SUMMARY | 2023-02-20 15:20 | XMS_ITS | Continuity of Care Document ---
Author Name Unknown Organization [facility] Address [address] [place] [address]- Care Team Providers Care Final Canoe Inspector Name Role Phone Olivier MOSHER, Allegra Primary Care Physician [phone] [place] [facility] [id number] Date(s): 09/06/22 - 09/13/22 [facility] [address] [place] [address]- Attending Physician: Vitcor Hugo MOSHER, Aditi Kilgore Admitting Physician: Victor Hugo MOSHER, Aditi Kilgore Allergies, Adverse Reactions, Alerts Substance Reaction Severity Status ibuprofen ABD PAIN Active morphine Vomiting and itchy Active traMADol Itchy, Hives Active Immunizations Given and Recorded Vaccine Date Status Refusal Reason SARS-CoV-2 mRNA (utkfsug-kaei-turft) vax 02/22/22 Recorded SARS-CoV-2 (COVID-19) mRNA BNT-162b2 [...] Note: VIS GIVEN-DATED 05/30/11 2Result Comment: LOT [id number] EXP 04 MAY 2010 3Admin Note: VIS [...] 09/12/22 13:18:00 EST, Route to Pharmacy Electronically, [facility]/pharmacy #[id number], Partial fill upon patient req... [...] Refills, Maintenance, 05/01/22 12:34:00 EDT, Lotion, [facility]/pharmacy #[id number], Partial fill upon patient request if the prescription is for a schedule II opioid drug., 1 application Topically 2 times a da... Start Date: 05/01/22 Stop Date: 05/31/22 Status: Ordered aspirin 81 mg oral delayed release tablet 81 mg, By Mouth, Daily, # 30 tablet, Refills 5, Tot. Refills 5, Maintenance, 05/13/22 16:40:00 EDT,Route to Pharmacy Electronically, [facility] [...] 16:13:00 EDT, Route to Pharmacy Electronically, [facility]/pharmacy #[id number], Partial fill upon patient [...] 09/16/22 11:27:00 EST, 09/06/22 11:27:00 EDT, Tablet, [facility]/pharmacy #[id number], Partial fill upon patient [...] 07/07/22 15:52:00 EDT, Route to Pharmacy Electronically, [facility] [...] Refills, Soft Stop, 08/01/22 16:09:00EDT, Solution, [facility]., Partial fill upon patient request if the prescription isfor a schedule II opioid drug., 169, cm, 08/01/22 1... Start Date: 08/01/22 Stop Date: 04/22/24 Status: Ordered lisinopril 10 mg oral tablet 10 mg, 1, tablet, By Mouth, Daily, # 90 tablet, Refills 4, Tot. Refills 4, Maintenance, 07/12/22 10:12:00 EDT, Route to Pharmacy Electronically, [facility] #[id number], Partial fill upon patientrequest if the prescription is for a schedule II op... Start Date: 07/12/22 Stop Date: 10/05/23 Status: Ordered NovoLOG FlexPen 100 units/mL injectable solution = 20 units, Subcutaneous Injection, 3 times a day before meals, INJECT 20 UNITS INTO SKIN THREE TIMES DAILY BEFORE A MEAL, # 15 mL, 10 Refills, Maintenance, 08/01/22 16:09:00 EDT, [facility]., 169, cm, 08/01/22 14:14:00 EDT, Height, [...] 09/19/22 13:19:00 EST, 09/12/22 13:19:00 EST, Tablet, [facility]/pharmacy #[id number], Partial fill upon patient request if the prescription is for a schedule II opioid drug., 16... Start Date: 09/12/22 Stop Date: 09/19/22 Status: Ordered PARoxetine 40 mg oral tablet [...] 0 Refills, Maintenance, 04/18/22 9:51:00 EDT, Aerosol, [facility], Partial fill [...] 10:42:00 EDT, Solution, [facility] #[id number], Partial fill upon patient request if the prescription is for a schedule II opioid drug.... Start Date: 07/19/22 Status: Ordered Ventolin HFA 108 mcg/inh inhalation aerosol with adapter 2 puffs, Inhalation, Every 6 hours, PRN Wheezing/Shortness of Breath, # 8 Gm, 1 Refills, Maintenance, 05/30/22 10:56:00 EDT, [facility], Partial fill [...] Obese class II Confirmed Active BHN/CCA/CP- [facility] [phone] intermediate active care coordination Confirmed Active Peripheral vascular disease Confirmed Active Umbilical hernia Confirmed Active 1per 2016 and 2018 [facility] notes Social History Social History Type Response Smoking Status Never (less than 100 in lifetime) entered on: 09/03/19 Sex 1per pt Note * Kobe Eldridge: PERFORM, SIGN, VERIFY Event Display: Patient Education/Instruction Authored Date: [id number] [facility] *[facility] [address] Clinical Summary Name SUZIE COPPOLA Age 46 Years 1975 PCP Allegra Aguayo MD PCP Visit Date 09/06/2022 07:02:00 Additional Instructions: Scheduled Appointments?? Future Appointments ?[facility] ?Phone:??--?Fax:??-- ?Appt. Date:??09/11/2022?2:00 PM ?Scheduled Provider:??Victor Hugo MOSHER , Aditi Kilgore ?*[facility] ?Phone:??--?Fax:??-- ?Appt. Date:??09/25/2022?11:00 AM ?Scheduled Provider:??[facility] Follow-Up Instructions ?? Diagnosis Medications: Please continue your medications until treatment is completed or stopped by your provider. Discuss any questions related to medications with your provider. New Medications [id number], [address], [place] [id number], [phone] Doxycycline (doxycycline hyclate 100 mg oral tablet) 1 tab(s) Oral twice a day for 10 Days. Refills: 0. Next Dose: Medications to Continue with No Changes These medications were not printed or sent to your pharmacy Acetaminophen (Tylenol 8 Hour 650 mg oral tablet, extended release) 2 tab(s) Oral every 8 hours as needed as needed for pain. Refills: 0. Next Dose: Albuterol (ProAir HFA [...] Refills: 5. Next Dose: Collagenase Topical (Santyl Topical Oint) 1 applicator Topically Daily. Next Dose: Docusate (Colace sodium 100 mg oral capsule) 1 capsule Oral twice a day as needed for constipation.Refills: 0. Next Dose: dulaglutide (Trulicity Pen 4.5 mg/0.5 mL subcutaneous solution) 0.5 Milliliter Subcutaneous Injection every week. rotate injection sites. Refills: 4. Next Dose: Durable Medical Equipment (4 x [...] Refills: 0. Next Dose: Durable Medical Equipment (right foot large post op shoe) please dispense 1 large post op shoe for right toe infection ICD 10 L03.039, length of use 2 months. Refills: 0. Next Dose: Furosemide (furosemide 20 mg oral tablet) 1 tab(s) Oral Daily. Refills: 5. Next Dose: Insulin Aspart (NovoLOG FlexPen 100 units/mL injectable solution) 20 unit(s) Subcutaneous Injection3 times a day before meals for 90 Days. INJECT 20 UNITS INTO SKIN THREE TIMES DAILY BEFORE A MEAL. Refills: 10. Next Dose: Insulin Glargine (Lantus Solostar Pen 100 units/mL subcutaneous solution) 30 unit(s) Subcutaneous Injection twice a day for 90 Days. Refills: 6. Next Dose: Lisinopril (lisinopril 10 mg oral tablet) 1 tab(s) Oral Daily for 90 Days. Refills: 4. Next Dose: Miscellaneous Rx (D/armando Rx) Januvia has been discontinued. Refills: 0. Next Dose: Oxycodone (oxyCODONE 10 mg oral tablet) 1 tab(s) Oral twice a day for 14 Days. Refills: 0. Next Dose: Paroxetine (PARoxetine 40 mg oral tablet) 1 tab(s) Oral Daily. Next Dose: silver topical (silver topical gel) Topically Daily cover with appropriate dressing after application clean wound prior to application. Refills: 0. Next Dose: Trazodone (traZODone 300 mg oral tablet) 1 tab(s) Oral Daily at Bedtime. Next Dose: Allergy Info:?? traMADol; morphine; ibuprofen Medications Given This Visit Future Orders ?No future orders Vital Signs Height Weight BMI Blood Pressure / Temperature Pulse Rate Respiratory Rate 02 Sat Mode of Delivery / You can now view a summary of your hospital visit from the comfort of your home through a free online portal called [employer]. [employer] is a website that allows you to securely view your medical information including discharge summary, medications and follow-up visits. ??You can alsosend a secure electronic message to your doctor???s office to request appointments, renew medications or just ask a question. You can enroll at [email or web address] or register during your next [...] primary care provider, you may find a [facility] provider by calling [facility] Link at [phone]. For information about the plan of care [...] Resident Member Role: PCP Address: Address: [address] [place] [address] Name: Vera Locke RN Position: S RN Member Role: Primary Care Nurse Name: Baljit Martínez RN Position: S RN Member Role: Primary Care Nurse Name: Sabine Guthrie RN Position: [facility] RN Member Role: Primary Care Nurse Name: Aditi Hernandez RN Position: S RN Member Role: Primary Care Nurse Name: Piyush Moore RN Position: S RN Member Role: Primary Care Nurse Name: Mis Vences RN Position: [facility] RN Member Role: Primary Care Nurse Name: Angie Lopez RN Position: S RN Member Role: Primary Care Nurse Name: Lizzie Estrada RN Position: S RN Member Role: Primary Care Nurse Care Team Related Persons Name: MIKEY SEAY Address: home [address] [address] Name: MIKEY AYALA Address: home [address] [place] [address] Name: TANIA COPPOLA Address: home [address] [place] [phone] Name: TANIA MUÑIZ Address: home [address] [place] [address]
--- OUTSIDE RECORDS SUMMARY | 2023-02-20 15:20 | XMS_ITS | Continuity of Care Document ---
Author Name Unknown Organization [facility] Address [address] [place] [address]- Care Team Providers Care Neuropathologist Name Role Phone Olivier MOSHER, Allegra Primary Care Physician [place] [facility] [place](s): 06/22/22 - 07/22/22 [facility] [address] [place] [address]- Allergies, Adverse Reactions, Alerts Substance Reaction Severity Status ibuprofen ABD PAIN Active morphine Vomiting and itchy Active traMADol Itchy, Hives Active Immunizations Given and Recorded Vaccine Date Status Refusal Reason SARS-CoV-2 mRNA ([id number]) vax 02/22/22 Recorded SARS-CoV-2 (COVID-19) mRNA BNT-162b2 [...] Note: VIS GIVEN-DATED 05/30/11 2Result Comment: LOT [id number] EXP 04 MAY 2010 3Admin Note: VIS [...] 04/24/22 9:05:00 EDT, Route to Pharmacy Electronically, [facility], Partial fill upon patient request if the prescription is for a schedule II opio... Start Date: 04/24/22 Status: Ordered ammonium lactate 5% topical lotion 1 application, Topically, 2 times a day, # 240 Gm, 0 Refills, Maintenance, 05/01/22 12:34:00 EDT, Lotion, [facility]/pharmacy #[id number], Partial fill upon patient request if the prescription is for a schedule II opioid drug., 1 application Topically 2 times a da... Start Date: 05/01/22 Stop Date: 05/31/22 Status: Ordered aspirin 81 mg oral delayed release tablet 81 mg, By Mouth, Daily, # 30 tablet, Refills 5, Tot. Refills 5, Maintenance, 05/13/22 16:40:00 EDT,Route to Pharmacy Electronically, [facility], Partial fill upon patient request if the prescription is for a schedule II opioid drug.,... Start Date: 05/13/22 Stop Date: 11/09/22 Status: Ordered atorvastatin 40 mg oral tablet 1 tablet = 40 mg, By Mouth, Daily, # 90 tablet, 2 Refills, Maintenance, 04/24/22 9:41:00 EDT, Tablet, [facility] Partial fill upon patient request if the prescription is for a schedule II opioid drug., 170, cm, 04/24/22 8:36:00 EDT, H... Start Date: 04/24/22 Status: Ordered Bactrim DS 800 mg-160 mg oral tablet 1 tablet, By Mouth, 2 times a day, for 10 days, # 20 tablet, 0 Refills, Acute 07/29/22 12:36:00 EDT, 07/19/22 12:36:00 EDT, Tablet, [facility] #[id number], Partial fill upon patient request if the prescription is for a schedule II opioid drug., 1... Start Date: 07/19/22 Stop Date: 07/29/22 Status: Ordered Blood Pressure Monitor See Instructions, # 1 each, Maintenance, DX HTN, ICD E11.9, 01/11/22 9:28:00 EST, Supply Start Date: 01/11/22 Status: Ordered carvedilol 25 mg oral tablet 25 mg, 1, tablet, By Mouth, 2 times a day, # 60 tablet, Refills 5, Tot. Refills 5, Maintenance, 05/13/22 16:40:00 EDT, Route to Pharmacy Electronically, [facility], Partial fill upon patient request if the prescription is for a schedul... Start Date: 05/13/22 Stop Date: 11/09/22 Status: Ordered Colace sodium 100 mg oral capsule 100 mg, 1, capsule, By Mouth, 2 times a day, PRN, # 60 capsule, Refills 0, Tot. Refills 0, Maintenance, for constipation, 03/16/22 14:30:00 EDT, Route to Pharmacy Electronically, [facility], Partial fill upon patient request if the [...] 07/07/22 15:52:00 EDT, Route to Pharmacy Electronically, [facility], Partial fill upon patient request if the prescription is for a schedule II opi... Start Date: 07/07/22 Status: Ordered insulin aspart 100 units/mL subcutaneous solution = 20 units, Subcutaneous Injection, 3 times a day before meals, # 10 mL, 11 Refills, Maintenance, 03/10/22 9:06:00 EDT, Solution, [facility] #[id number], Partial fill upon patient request if theprescription [...] 03/09/22 Stop Date: 07/07/22 Status: Ordered Lantus 100 u/ml subcutaneous solution = 30 units, Subcutaneous Injection, 2 times a day, # 10 mL, 5 Refills, Maintenance, 03/10/22 9:05:00 EDT, Solution, [facility] #[id number], Partial fill upon patient request if the prescription is for a schedule II opioid drug., 169, cm, 03/09/22... Start Date: 03/10/22 Status: Ordered lisinopril 10 mg oral tablet 10 mg, 1, tablet, By Mouth, Daily, # 90 tablet, Refills 4, Tot. Refills 4, Maintenance, 07/12/22 10:12:00 EDT, Route to Pharmacy Electronically, [facility] #[id number], Partial fill upon patientrequest if the prescription is for a schedule II op... Start Date: 07/12/22 Stop Date: 10/05/23 Status: Ordered Offloading boot Offloading boot, See [...] 04/24/22 9:03:00 EDT, Route to Pharmacy Electronically, [facility], Partial fill upon patient request if the prescription is for a schedule II opio... Start Date: 04/24/22 Status: Ordered ProAir HFA 90 mcg/inh inhalation aerosol 1 puffs, Inhalation, Every 4 hours, PRN as needed for wheezing, # 18 Gm, 0 Refills, Maintenance, 04/18/22 9:51:00 EDT, Aerosol, [facility] [...] 0 Refills, Maintenance, 03/09/22 14:21:00 EDT, Gel, [facility] Partial fill upon patient request if the p... Start Date: 03/09/22 Status: Ordered traZODone 300 mg oral tablet 1 tablet = 300 mg, By Mouth, Daily at bedtime Start Date: 03/03/22 Status: Ordered Trulicity Pen 4.5 mg/0.5 mL subcutaneous solution = 0.5 mL, Subcutaneous Injection, Every week, rotate injection sites, # 6 mL, 4 Refills, Maintenance, 07/19/22 10:42:00 EDT, Solution, [id number], Partial fill upon patient request if the prescription is for a schedule II opioid drug.... Start Date: 07/19/22 Status: Ordered Tylenol 8 Hour 650 mg oral tablet, extended release 2 tablet = 1,300 mg, By Mouth, Every 8 hours, PRN as needed for pain, # 24 tablet, 0 Refills, Maintenance, 04/24/22 9:43:00 EDT, [facility] Partial fill upon patient request if the prescription is for a schedule II opioid d... Start Date: 04/24/22 Status: Ordered Ventolin HFA 108 mcg/inh inhalation aerosol with adapter 2 puffs, Inhalation, Every 6 hours, PRN Wheezing/Shortness of Breath, # 8 Gm, 1 Refills, Maintenance, 05/30/22 10:56:00 EDT, [facility], Partial fill upon patient request if the [...] Active Obese class II(Confirmed) Active BHN/CCA/AUDRA-Mignon Peters [phone]/Health group home active care coordination(Confirmed) Active Peripheral vascular disease(Confirmed) Active Umbilical hernia(Confirmed) Active 1per 2016 and 2018 [facility] notes Social History Social History Type Response Smoking Status Never (less than 100 in lifetime) entered on: 09/03/19 Sex 1per pt Care Team Personnel Name: Allegra Aguayo MD Address: [address] [facility] [place], [place] [address]
--- OUTSIDE RECORDS SUMMARY | 2023-02-20 15:20 | XMS_ITS | Continuity of Care Document ---
Author Name Unknown Organization [facility]3] Adult Medicine Address [address] [place] [address]- Care Team Providers Care Management Instructor Name Role Phone Sangeetha MSOHER, Marcia Koroma Primary Care Physician [place] [facility] [place] [facility]3] Adult Medicine [address] [place] [id number] Attending Physician: Arlette Galloway NP Admitting [...] Note: VIS GIVEN-DATED 05/30/11 2Result Comment: LOT [id number] EXP 04 MAY 2010 3Admin Note: VIS given Medications albuterol 90 mcg/inh inhalation powder 2 puffs, Inhalation, Every 6 hours, PRN as needed, # 1 each, 11 Refills, Maintenance, 12/08/20 11:02:00 EST, Powder, [facility] #[id number], 2 puffs Inhalation Every 6 hours,PRN:as needed, [...] 07/30/20 18:34:00 EDT, Route to Pharmacy Electronically, [facility] #[id number], 170, cm, 05/20/20 14:48:00 EDT, Height, 100.5, kg, 05/30/19 9:39:00 EDT, Dry... Start Date: 07/30/20 Stop Date: 07/25/21 Status: Ordered aspirin 81 mg oral delayed release tablet 81 mg, 1, tablet, By Mouth, Daily, # 30 tablet, Refills 11, Tot. Refills 11, Maintenance, 05/20/20 14:45:00 EDT, Route to Pharmacy Electronically, [facility] #[id number], 170, cm, 05/20/20 14:08:00 EDT, Height, 100.5, kg, 05/30/19 9:39:00 EDT, . Start Date: 05/20/20 Status: Ordered atorvastatin 10 mg oral tablet 1 tablet = 10 mg, By Mouth, Daily, # 30 tablet, 11 Refills, Maintenance, 05/20/20 14:46:00 EDT, [facility] #[id number], 170, cm, 05/20/20 14:08:00 EDT, Height, 100.5, [...] mL, 3 Refills, Maintenance, 01/29/21 9:00:00 EDT, [facility] #[id number], 170, cm, 12/21/20 9:18:00 EST, Height, 100.5, kg, 05/30/19 9:39:00 EDT, Dry Weight Start Date: 01/29/21 Status: Ordered lisinopril 40 mg oral tablet 1 tablet = 40 mg, By Mouth, Daily, # 90 tablet, 4 Refills, Maintenance, 02/03/20 12:39:00 EDT, Tablet, [facility] #[id number], 170, cm, 12/16/19 10:11:00 EST, Height, 100.5, [...] mL, 1 Refills, Maintenance, 12/17/20 13:06:00 EST, [facility] #[id number], 170, cm, 05/20/2014:48:00 EDT, Height, 100.5, kg, 05/30/19 9:39:00 E... Start Date: 12/17/20 Status: Ordered OXcarbazepine 300 mg oral tablet TK 1 T PO BID Start Date: 01/29/19 Status: Ordered PARoxetine 40 mg oral tablet TK 1 T PO HS Start Date: 01/29/19 Status: Ordered Pen [place], 31 G x 5 mm BD Ultra Fine III See Instructions, # 150 each, Refills 11, Tot. Refills 11, Maintenance, use to inject insulin up tofive times daily dx e11.9, 10/21/20 15:55:00 EST, Supply, 170, cm, 05/20/20 14:48:00 EDT, Height, 100.5, kg, 05/30/19 9:39:00 EDT, Dry Weight Start Date: 10/21/20 Status: Ordered Pen [place], 31 G x 5 mm BD [...] 2 Refills, Maintenance, 02/11/21 11:27:00 EDT, Tablet, [facility] #[id number], pt needs labs; to replace 50 mg dose;, 170, cm, 12/21/20... Start Date: 02/11/21 Status: Ordered traZODone 300 mg oral tablet TK 1 T PO HS Start Date: 01/29/19 Status: Ordered Trulicity Pen 1.5 mg/0.5 mL subcutaneous solution 0.5 mL = 1.5 mg, Subcutaneous Injection, Every week, # 2.5 mL, 5 Refills, Maintenance, 02/01/21 14:49:00 EDT, Solution, [facility] #[id number], to replace 0.75 mg dose, 170, cm, [...] Microalbuminuria(Confirmed) Active Morbid obesity(Confirmed) Active BHN/CCA/AUDRA-Mignon Peters [phone]/Health long term active care coordination(Confirmed) Active Peripheral vascular disease(Confirmed) Active Umbilical hernia(Confirmed) Active 1per 2016 and 2018 [facility] notes Social History Social History Type Response Smoking Status Never (less than 100 in lifetime) entered on: 09/03/19 Sex Female 1per pt
--- OUTSIDE RECORDS SUMMARY | 2023-02-20 15:20 | XMS_ITS | Continuity of Care Document ---
Author Name Unknown Organization [facility] Address [address] [place] [address]- Care Team Providers Care Adult Basic Education Instructor Name Role Phone Sangeetha MOSHER, Marcia Koroma Primary Care Physician Encounter [facility] Date(s): 10/25/20 - 11/24/20 [facility] [address] [place] [address]- Allergies, Adverse Reactions, Alerts Substance Reaction Severity [...] Note: VIS GIVEN-DATED 05/30/11 2Result Comment: LOT [id number] EXP 04 MAY 2010 3Admin Note: VIS [...] 07/30/20 18:34:00 EDT, Route to Pharmacy Electronically, [facility] #[id number], 170, cm, 05/20/20 14:48:00 EDT, Height, 100.5, kg, 05/30/19 9:39:00 EDT, Dry... Start Date: 07/30/20 Stop Date: 07/25/21 Status: Ordered aspirin 81 mg oral delayed release tablet 81 mg, 1, tablet, By Mouth, Daily, # 30 tablet, Refills 11, Tot. Refills 11, Maintenance, 05/20/20 14:45:00 EDT, Route to Pharmacy Electronically, [facility] #[id number], 170, cm, 05/20/20 14:08:00 EDT, Height, 100.5, kg, 05/30/19 9:39:00 EDT, . Start Date: 05/20/20 Status: Ordered atorvastatin 10 mg oral tablet 1 tablet = 10 mg, By Mouth, Daily, # 30 tablet, 11 Refills, Maintenance, 05/20/20 14:46:00 EDT, [facility] #[id number], 170, cm, 05/20/20 14:08:00 EDT, Height, 100.5, [...] 0 Refills, Maintenance, 09/02/20 14:20:00 EDT, Ointment, [id number], 1 application Topically 2 times a day, [...] 09/10/20 18:41:00 EST, pt [facility]... Start Date: 09/10/20 Stop Date: 03/09/21 Status: Ordered Insulin Syringe, BD Ultra-Fine 0.5 cc 31 G x 8 mm (516in) See Instructions, # 150 each, Refills 11, Tot. Refills 11, Maintenance, use as directed for Type 2 Diabetes Mellitus to admisiter insulin four times a day. Dx; E11.9, 05/15/21 15:10:00 EDT, pt was transferred to [facility], all meds left beh... Start Date: 05/15/21 Stop Date: 05/10/22 Status: Ordered Lantus 100 u/ml subcutaneous solution = 40 units, Subcutaneous Infusion, 2 times a day, # 15 mL, 3 Refills, Maintenance, 07/30/20 18:34:00 EDT, [facility] #[id number], 170, cm, 05/20/20 14:48:00 EDT, Height, 100.5, kg, 05/30/19 9:39:00 EDT, Dry Weight Start Date: 07/30/20 Stop Date: 11/27/20 Status: Ordered lisinopril 40 mg oral tablet 1 tablet = 40 mg, By Mouth, Daily, # 90 tablet, 4 Refills, Maintenance, 02/03/20 12:39:00 EDT, Tablet, [facility] #[id number], 170, cm, 12/16/19 10:11:00 EST, Height, 100.5, kg, 05/30/19 9:39:00EDT, Dry Weight Start Date: 02/03/20 Stop Date: 04/28/21 Status: Ordered Melatonin 5 mg oral tablet 0 Refills, Maintenance, 01/29/19 10:09:09 EDT Start Date: 01/29/19 Status: Ordered NovoLOG 100 units/mL injectable solution = 20 units, Subcutaneous Infusion, 3 times a day before meals, replaces humalog, # 50 mL, 1 Refills, Maintenance, 07/29/20 11:23:00 EDT, [facility] #[id number], 170, cm, 05/20/20 14:48:00 EDT, Height, 100.5, kg, 05/30/19 9:39:00 EDT, Dry Weight Start Date: 07/29/20 Status: Ordered OXcarbazepine 300 mg oral tablet TK 1 T PO BID Start Date: 01/29/19 Status: Ordered PARoxetine 40 mg oral tablet TK 1 T PO HS Start Date: 01/29/19 Status: Ordered Pen [place], 31 G x 5 mm BD Ultra [...] 5 Refills, Maintenance, 10/25/20 15:16:00 EST, Tablet, [facility] #[id number], Partial fill upon patient request if the [...] 0 Refills, Maintenance, 05/20/20 15:09:00 EDT, Ointment, [facility] #[id number], 1 application Topically 2 times a day,x14 days,Instr:apply a thin film; to aff... Start Date: 05/20/20 Stop Date: 06/03/20 Status: Ordered Trulicity Pen 1.5 mg/0.5 mL subcutaneous solution 0.5 mL = 1.5 mg, Subcutaneous Injection, Every week, # 2.5 mL, 5 Refills, Maintenance, 07/29/20 8:56:00 EDT, Solution, [facility] #[id number], 170, cm, 05/20/20 14:48:00 EDT, Height, 100.5, [...]
--- OUTSIDE RECORDS SUMMARY | 2023-02-20 15:21 | XMS_ITS | Continuity of Care Document ---
Author Name Unknown Organization [facility] Address [address] [place] [address]- Care Team Providers Care International Specialist Name Role Phone Josef MOSHER, Mamie Patterson Primary Care Physician Encounter [facility] [place] Date(s): 12/29/21 - 01/28/22 [facility] [address] [place] [address]- Allergies, Adverse Reactions, Alerts Substance Reaction Severity [...] Note: VIS GIVEN-DATED 05/30/11 2Result Comment: LOT [id number] EXP 04 MAY 2010 3Admin Note: VIS [...] 12/29/21 10:02:00 EST, Route to Pharmacy Electronically, [facility] #[id number], 170, cm, 07/28/21 10:50:00 EDT, Height Start Date: 12/29/21 Stop Date: 03/24/23 Status: Ordered atorvastatin 10 mg oral tablet 1 tablet, By Mouth, Daily, # 90 tablet, 1 Refills, Maintenance, 12/13/21 19:21:00 EST, [facility] #[id number], 170, cm, 07/28/21 10:50:00 EDT, Height Start [...] 12/29/21 10:02:00 EST, Route to Pharmacy Electronically, [facility] #[id number], Partial fill upon patientrequest if the prescription [...] tablet, 11 Refills, Maintenance, 12/29/21 10:02:00 EST, [facility] #[id number], resent - not recvd, 170, cm, 07/28/21 10:50:00 EDT, Height Start Date: 12/29/21 Status: Ordered Lantus 100 u/ml subcutaneous solution = 45 units, Subcutaneous Infusion, 2 times a day, changed from PEN, pt requesting vials, # 12 mL, 11 Refills, Maintenance, 01/11/22 9:45:00 EST, [facility] #[id number], Partial fill upon patientrequest if the prescription is for a schedule II op... Start Date: 01/11/22 Status: Ordered lidocaine 5% topical ointment 1 application, Topically, 3 times a day, wash hands thoroughly after application, prn pain, # 50 Gm, 0 Refills, Maintenance, 01/11/22 9:49:00 EST, Ointment, [facility] #[id number], Partial fill upon patient request if the prescription is for a sc... Start Date: 01/11/22 Status: Ordered lisinopril 40 mg oral tablet 1 tablet = 40 mg, By Mouth, Daily, # 90 tablet, 4 Refills, Maintenance, 07/20/21 9:25:00 EDT, Tablet, [facility] #[id number], 170, cm, 07/20/21 8:57:00 EDT, Height Start Date: 07/20/21 Stop Date: 10/13/22 Status: Ordered NovoLOG 100 units/mL injectable solution See Instructions, ADMINISTER 20 UNITS UNDER THE SKIN THREE TIMES DAILY BEFORE MEALS 90 DAY SUPPLY REQUESTED, # 30 mL, 2 Refills, [facility] #[id number], 170, cm, 07/28/21 10:50:00 EDT, Height Start [...] INJECTION SITES, # 2 mL, 0 Refills, [facility] #[id number], 170, cm, 07/28/21 10:50:00 EDT, Height Start Date: 01/10/22 Status: Ordered Ventolin HFA 108 mcg/inh inhalation aerosol with adapter 1 puffs, Inhalation, 4 times a day, PRN NEEDED FOR WHEEZING, # 18 Gm, 0 Refills, [facility] #[id number], 170, cm, 01/11/22 9:39:00 EST, Height Start [...] Obese class I(Confirmed) Active BHN/CCA/Luis Felipe Peters [phone]/Health [facility] active care coordination(Confirmed) Active Peripheral vascular disease(Confirmed) Active Umbilical hernia(Confirmed) Active 1per 2016 and 2018 [facility] notes Social History Social History Type Response Smoking Status Never (less than 100 in lifetime) entered on: 09/03/19 Sex Female 1per pt
--- OUTSIDE RECORDS SUMMARY | 2023-02-20 15:21 | XMS_ITS | Continuity of Care Document ---
Author Name Unknown Organization [facility] Adult [facility] Address [address] [place] [address]- Care Team Providers Care Security Public Safety Officer Name Role Phone Josef MOSHER, Mamie Patterson Primary Care Physician [phone] [place] [facility] [place] 11[place]24/21 [facility] [address] [place], [place] [address] Attending Physician: Arlette Galloway NP Admitting [...] Note: VIS GIVEN-DATED 05/30/11 2Result Comment: LOT [id number] EXP 04 MAY 2010 3Admin Note: VIS [...] 07/20/21 9:24:00 EDT, Route to Pharmacy Electronically, [facility] #[id number], 170, cm, 07/20/21 8:57:00 EDT, Height Start Date: 07/20/21 Stop Date: 10/13/22 Status: Ordered atorvastatin 10 mg oral tablet 1 tablet = 10 mg, By Mouth, Daily, # 90 tablet, 1 Refills, Maintenance, 05/05/21 10:09:00 EDT, [facility] #[id number], 170, cm, 12/21/20 9:18:00 EST, Height, 100.5, [...] 07/20/21 9:33:00 EDT, Route to Pharmacy Electronically, [facility] #[id number], Partial fill upon patient request if the [...] tablet, 11 Refills, Maintenance, 10/24/21 9:05:00 EST[facility] 170, cm, 07/28/21 10:50:00 EDT, Height Start Date: 10/24/21 Status: Ordered Januvia 50 mg oral tablet 1 tablet = 50 mg, By Mouth, Daily, dose decreased, # 30 tablet, 11 Refills, Maintenance, 09/20/21 13:40:00 EST, Tablet, [facility] #[id number], Partial fill upon patient request if the prescription is for a schedule II opioid drug., 170, cm, 07/07... Start Date: 09/20/21 Status: Ordered Lantus Solostar Pen 100 units/mL subcutaneous solution See Instructions, INJECT 45 UNITS UNDER THE SKIN TWICE DAILY., # 24 mL, 0 Refills, 10/21/21 7:36:00EST, [facility] #[id number], dose increase since 07/26, 170, cm, 07/28/21 10:50:00 EDT, Height Start Date: 10/21/21 Status: Ordered lisinopril 40 mg oral tablet 1 tablet = 40 mg, By Mouth, Daily, # 90 tablet, 4 Refills, Maintenance, 07/20/21 9:25:00 EDT, Tablet, [facility] #[id number], 170, cm, 07/20/21 8:57:00 EDT, Height Start Date: 07/20/21 Stop Date: 10/13/22 Status: Ordered Melatonin 5 mg oral tablet 0 Refills, Maintenance, 01/29/19 10:09:09 EDT Start Date: 01/29/19 Status: Ordered NovoLOG 100 units/mL subcutaneous solution See Instructions, 28 units Subcutaneous Infusion 3 times a day before meals dxE11.9, # 48 mL, 11 Refills, Maintenance, 08/26/21 13:13:00 EDT, [facility], Partial fill upon patient request if the prescription is for a schedule II opioid... Start Date: 08/26/21 Status: Ordered OXcarbazepine 300 mg oral tablet TK 1 T PO BID Start Date: 01/29/19 Status: Ordered PARoxetine 40 mg oral tablet TK 1 T PO HS Start Date: 01/29/19 Status: Ordered Pen [place], 31 G x 5 mm BD Ultra Fine III See Instructions, # 150 each, Refills 11, Tot. Refills 11, Maintenance, use to inject insulin up tofive times daily dx e11.9, 10/21/20 15:55:00 EST, Supply, 170, cm, 05/20/20 14:48:00 EDT, Height, 100.5, kg, 05/30/19 9:39:00 EDT, Dry Weight Start Date: 10/21/20 Status: Ordered Pen [place], 31 G x 5 mm BD Ultra [...] FOR 14 DAYS, # 15 Gm, 0 Refills,[facility] #[id number], 14, APPLY TOPICALLY TO THE AFFECTED AREA TWICE DAILY FOR 14 DAYS, 170,cm, 07/28/21 10:50:00 EDT, Height Start Date: 11/02/21 Status: Ordered Trulicity Pen 1.5 mg/0.5 mL subcutaneous solution See Instructions, ADMINISTER 1.5 MG UNDER THE SKIN EVERY WEEK, # 2 mL, 0 Refills, [facility] #[id number], 170, cm, 07/28/21 10:50:00 EDT, Height Start Date: 09/22/21 Status: Ordered Ventolin HFA 108 mcg/inh inhalation aerosol with adapter 1 puffs, Inhalation, 4 times a day, PRN for wheezing, # 8 Gm, 2 Refills, Maintenance, 09/22/21 11:41:00 EST, Aerosol, [facility] #[id number], Partial fill upon patient request if the [...] Microalbuminuria(Confirmed) Active Morbid obesity(Confirmed) Active BHN/CCA/AUDRA-Mignon Peters [phone]/Health [facility] active care coordination(Confirmed) Active Peripheral vascular disease(Confirmed) Active Umbilical hernia(Confirmed) Active 1per 2016 and 2018 [facility] notes Social History Social History Type Response Smoking Status Never (less than 100 in lifetime) entered on: 09/03/19 Sex Female 1per pt
--- OUTSIDE RECORDS SUMMARY | 2023-02-20 15:21 | XMS_ITS | Continuity of Care Document ---
Author Name Unknown Organization [facility] Address [address] [place] [address]- Care Team Providers Care System Engineer Name Role Phone Josef MOSHER, Mamie Patterson Primary Care Physician [place] [facility] [place] [facility] [address], [place] [address] Attending Physician: Luis F Rowland MD Admitting [...] Note: VIS GIVEN-DATED 05/30/11 2Result Comment: LOT [id number] EXP 04 MAY 2010 3Admin Note: VIS [...] 07/20/21 9:24:00 EDT, Route to Pharmacy Electronically, [facility] #[id number], 170, cm, 07/20/21 8:57:00 EDT, Height Start Date: 07/20/21 Stop Date: 10/13/22 Status: Ordered atorvastatin 10 mg oral tablet 1 tablet = 10 mg, By Mouth, Daily, # 90 tablet, 1 Refills, Maintenance, 05/05/21 10:09:00 EDT, [facility] #[id number], 170, cm, 12/21/20 9:18:00 EST, Height, 100.5, [...] 07/20/21 9:33:00 EDT, Route to Pharmacy Electronically, [facility] #[id number], Partial fill upon patient request if the [...] tablet, 11 Refills, Maintenance, 10/24/21 9:05:00 EST[facility] 170, cm, 07/28/21 10:50:00 EDT, Height Start Date: 10/24/21 Status: Ordered Januvia 50 mg oral tablet 1 tablet = 50 mg, By Mouth, Daily, dose decreased, # 30 tablet, 11 Refills, Maintenance, 09/20/21 13:40:00 EST, Tablet, [facility] #[id number], Partial fill upon patient request if the prescription is for a schedule II opioid drug., 170, cm, 07/07... Start Date: 09/20/21 Status: Ordered Lantus Solostar Pen 100 units/mL subcutaneous solution See Instructions, ADMINISTER 45 UNITS UNDER THE SKIN TWICE DAILY, # 24 mL, 0 Refills, [facility] #[id number], 170, cm, 07/28/21 10:50:00 EDT, Height Start Date: 12/08/21 Status: Ordered lisinopril 40 mg oral tablet 1 tablet = 40 mg, By Mouth, Daily, # 90 tablet, 4 Refills, Maintenance, 07/20/21 9:25:00 EDT, Tablet, [facility] #[id number], 170, cm, 07/20/21 8:57:00 EDT, Height Start Date: 07/20/21 Stop Date: 10/13/22 Status: Ordered Melatonin 5 mg oral tablet 0 Refills, Maintenance, 01/29/19 10:09:09 EDT Start Date: 01/29/19 Status: Ordered NovoLOG 100 units/mL subcutaneous solution See Instructions, 28 units Subcutaneous Infusion 3 times a day before meals dxE11.9, # 48 mL, 11 Refills, Maintenance, 08/26/21 13:13:00 EDT, [facility], Partial fill upon patient request if the prescription is for a schedule II opioid... Start Date: 08/26/21 Status: Ordered OXcarbazepine 300 mg oral tablet TK 1 T PO BID Start Date: 01/29/19 Status: Ordered PARoxetine 40 mg oral tablet TK 1 T PO HS Start Date: 01/29/19 Status: Ordered Pen [place], 31 G x 5 mm BD Ultra Fine III See Instructions, # 150 each, Refills 11, Tot. Refills 11, Maintenance, use to inject insulin up tofive times daily dx e11.9, 10/21/20 15:55:00 EST, Supply, 170, cm, 05/20/20 14:48:00 EDT, Height, 100.5, kg, 05/30/19 9:39:00 EDT, Dry Weight Start Date: 10/21/20 Status: Ordered Pen [place], 31 G x 5 mm BD [...] FOR 14 DAYS, # 15 Gm, 0 Refills,[facility] #[id number], 14, APPLY TOPICALLY TO THE AFFECTED AREA TWICE DAILY FOR 14 DAYS, 170,cm, 07/28/21 10:50:00 EDT, Height Start Date: 11/02/21 Status: Ordered Trulicity Pen 3 mg/0.5 mL subcutaneous solution 0.5 mL = 3 mg, Subcutaneous Injection, Every week, rotate injection sites, # 2 mL, 0 Refills, Maintenance, 11/30/21 14:02:00 EST, Solution, [facility] #[id number], Partial fill upon patient request if the prescription is for a schedule II opioid... Start Date: 11/30/21 Status: Ordered Ventolin HFA 108 mcg/inh inhalation aerosol with adapter 1 puffs, Inhalation, 4 times a day, PRN for wheezing, # 8 Gm, 2 Refills, Maintenance, 09/22/21 11:41:00 EST, Aerosol, [facility] #[id number], Partial fill upon patient request if the [...] Microalbuminuria(Confirmed) Active Morbid obesity(Confirmed) Active BHN/CCA/CP-Mignon Peters [phone]/Health assisted active care coordination(Confirmed) Active Peripheral vascular disease(Confirmed) Active Umbilical hernia(Confirmed) Active 1per 2016 and 2019 [facility] notes Social History Social History Type Response Smoking Status Never (less than 100 in lifetime) entered on: 09/03/19 Sex Female 1per pt
--- OUTSIDE RECORDS SUMMARY | 2023-02-20 15:21 | XMS_ITS | Continuity of Care Document ---
Author Name Unknown Organization [facility] Address [address] [place] [address]- Care Team Providers Care Urban Forester Name Role Phone Allegra Aguayo MD Primary Care Physician [phone] [place] [facility] [place]/15/22 - 05/15/[address] [address]- Allergies, Adverse Reactions, Alerts Substance Reaction Severity Status ibuprofen ABD PAIN Active morphine Vomiting and itchy Active traMADol Itchy, Hives Active Immunizations Given and Recorded Vaccine Date Status Refusal Reason SARS-CoV-2 mRNA ([id number]) vax 02/22/22 Recorded SARS-CoV-2 (COVID-19) mRNA BNT-162b2 [...] Note: VIS GIVEN-DATED 05/30/11 2Result Comment: LOT [id number] EXP 04 MAY 2010 3Admin Note: VIS [...] 9:05:00 EDT, Route to Pharmacy Electronically, [facility], Partial fill upon patient request if the prescription is for a schedule II opio... Start Date: 04/24/22 Status: Ordered ammonium lactate 5% topical lotion 1 application, Topically, 2 times a day, # 240 Gm, 0 Refills, Maintenance, 05/01/22 12:34:00 EDT, Lotion, [facility]/pharmacy #[id number], Partial fill upon patient request if the prescription is for a schedule II opioid drug., 1 application Topically 2 times a da... Start Date: 05/01/22 Stop Date: 05/31/22 Status: Ordered aspirin 81 mg oral delayed release tablet 81 mg, By Mouth, Daily, # 30 tablet, Refills 5, Tot. Refills 5, Maintenance, 05/13/22 16:40:00 EDT,Route to Pharmacy Electronically, [facility], Partial fill upon patient request if the prescription is for a schedule II opioid drug.,... Start Date: 05/13/22 Stop Date: 11/09/22 Status: Ordered atorvastatin 40 mg oral tablet 1 tablet = 40 mg, By Mouth, Daily, # 90 tablet, 2 Refills, Maintenance, 04/24/22 9:41:00 EDT, Tablet, [facility], Partial fill upon patient request if [...] 16:40:00 EDT, Route to Pharmacy Electronically, [facility], Partial fill upon patient request if the prescription is for a schedul... Start Date: 05/13/22 Stop Date: 11/09/22 Status: Ordered Colace sodium 100 mg oral capsule 100 mg, 1, capsule, By Mouth, 2 times a day, PRN, # 60 capsule, Refills 0, Tot. Refills 0, Maintenance, for constipation, 03/16/22 14:30:00 EDT, Route to Pharmacy Electronically, [facility], Partial fill upon patient request if [...] 04/24/22 9:02:00 EDT, Route to Pharmacy Electronically, [facility], Partial fill upon patient request if the prescription is for a schedule II opio... Start Date: 04/24/22 Status: Ordered insulin aspart 100 units/mL subcutaneous solution = 20 units, Subcutaneous Injection, 3 times a day before meals, # 10 mL, 11 Refills, Maintenance, 03/10/22 9:06:00 EDT, Solution, [id number], Partial fill upon patient request if theprescription [...] tablet, 1 Refills, Maintenance, 05/15/22 16:38:00 EDT, [facility]/pharmacy#[id number], resent - not recvd, 169, cm, 05/01/22 10:56:00 EDT, Height, 104.9, kg, 03/04/22 2:58:00 EDT,Dry Weight Start Date: 05/15/22 Status: Ordered Lantus 100 u/ml subcutaneous solution = 30 units, Subcutaneous Injection, 2 times a day, # 10 mL, 5 Refills, Maintenance, 03/10/22 9:05:00 EDT, Solution, [facility] #[id number], Partial fill upon patient request if the prescription is for a schedule II opioid drug., 169, cm, 03/09/22... Start Date: 03/10/22 Status: Ordered lisinopril 10 mg oral tablet 10 mg, 1, tablet, By Mouth, Daily, # 30 tablet, Refills 4, Tot. Refills 4, Maintenance, 04/24/22 9:41:00 EDT, Route to Pharmacy Electronically, [facility], Partial fill upon patient request if [...] 04/24/22 13:25:00 EDT, Route to Pharmacy Electronically, [facility]/pharmacy #[id number], Partial fill upon patient request if t... Start Date: 04/24/22 Stop Date: 05/24/22 Status: Ordered oxyCODONE 5 mg oral tablet 5 mg, 1, tablet, By Mouth, Every 6 hours, PRN, for 7 days, # 28 tablet, Refills 0, Tot. Refills 0, Acute 05/31/22 10:39:00 EDT, as needed for pain, 05/24/22 10:39:00 EDT, [id number] fill upon patient... Start Date: 05/24/22 [...] 9:03:00 EDT, Route to Pharmacy Electronically, [facility], Partial fill upon patient request if [...] Refills, Maintenance, 04/18/22 9:51:00 EDT, Aerosol, [facility], Partial fill upon patient request if [...] Refills, Maintenance, 03/09/22 14:21:00 EDT, Gel, [facility], Partial fill upon patient request if the p... Start Date: 03/09/22 Status: Ordered traZODone 300 mg oral tablet 1 tablet = 300 mg, By Mouth, Daily at bedtime Start Date: 03/03/22 Status: Ordered Trulicity Pen 3 mg/0.5 mL subcutaneous solution See Instructions, ADMINISTER 0.5 ML UNDER THE SKIN EVERY WEEK. ROTATE INJECTION SITES, # 2 mL, 11 Refills, 03/09/22 14:22:00 EDT, [facility] 169, cm, 03/09/22 13:46:00 EDT, Height, 104.9, kg, 03/04/22 2:58:00 EDT, Dry Weight Start Date: 03/09/22 Status: Ordered Tylenol 8 Hour 650 mg oral tablet, extended release 2 tablet = 1,300 mg, By Mouth, Every 8 hours, PRN as needed for pain, # 24 tablet, 0 Refills, Maintenance, 04/24/22 9:43:00 EDT, ER Tablet, [facility], Partial fill upon patient request if [...] Active Obese class I(Confirmed) Active BHN/CCA/AUDRA-Mignon Peters [phone]/Health [facility] active care coordination(Confirmed) Active Peripheral vascular disease(Confirmed) Active Uncontrolled type 1 diabetes mellitus with hyperglycemia, with long-term current use of insulin(Confirmed) Active Umbilical hernia(Confirmed) Active 1per 2017 and 2019 [facility] notes Social History Social History Type Response Smoking Status Never (less than 100 in lifetime) entered on: 09/03/19 Sex 1per pt
--- OUTSIDE RECORDS SUMMARY | 2023-02-20 15:21 | XMS_ITS | Continuity of Care Document ---
Author Name Unknown Organization [facility] Address [address] [place] [address]- Care Team Providers Care C Unix Developer Name Role Phone Arlette Galloway NP Primary Care Physician [phone] Encounter [facility] Date(s): 04/07/20 - 05/08/20 [facility] [address] [place] [address]- [facility] Attending Physician: Not on Staff, Attending MD [...] Note: VIS GIVEN-DATED 05/30/11 2Result Comment: LOT [id number] EXP 04 MAY 2010 3Admin Note: VIS given Medications albuterol 90 mcg/inh inhalation powder 2 puffs, Inhalation, Every 6 hours, PRN as needed, # 1 each, 3 Refills, Maintenance, 09/05/19 10:48:00 EDT, Powder, 2 puffs Inhalation Every 6 hours,PRN:as needed Start Date: 09/05/19 Status: Ordered Alcohol Wipes See Instructions, # 1 pack/packet, Refills 5, Tot. Refills 5, Maintenance, [facility] and administer insulin Four times a day. Diagnosis code E11.9, 03/01/20 10:42:00 EDT, Compound, 170, cm, 12/16/19 10:11:00 EST, Height, 100.5, k... Start Date: 03/01/20 Status: Ordered amLODIPine 10 mg oral tablet 10 mg, 1, tablet, By Mouth, Daily, # 90 tablet, Refills 3, Tot. Refills 3, Maintenance, 02/03/20 12:39:00 EDT, Route to Pharmacy Electronically, [facility] #[id number], 170, cm, 12/16/19 10:11:00 EST, Height, 100.5, [...] 03/06/19 17:12:53 EDT, Route to Pharmacy Electronically, [id number], [facility] [id number] Start Date: 03/06/19 Status: Ordered insulin glargine 100 u/ml subcutaneous solution See Instructions, 40 units in the MORNING and 40 units AT BEDTIME Subcutaneous Injection dx E11.9 Rotate injection sites, # 60 mL, 1 Refills, Maintenance, 02/09/20 16:59:00 EDT, Solution, [facility] #[id number], 170, cm, 12/16/19 10:11:00 EST,... Start Date: 02/09/20 Status: Ordered Insulin Syringe, BD Ultra-Fine 0.5 cc 31 G x 8 mm (5/16in) See Instructions, # 150 each, Refills 11, Tot. Refills 11, Maintenance, use as directed for Type 2 Diabetes Mellitus to admisiter insulin four times a day. Dx; E11.9, 05/13/19 13:22:55 EDT, pt was transferred to [facility], all meds left beh... Start Date: 05/13/19 Stop Date: 05/07/20 Status: Ordered Lantus 100 u/ml subcutaneous solution = 40 units, Subcutaneous Infusion, 2 times a day, # 15 mL, 11 Refills, Maintenance, 04/28/20 11:50:00 EDT, [facility] #[id number], 170, cm, 04/02/20 13:31:00 EDT, Height, 100.5, kg, 05/30/19 9:39:00 EDT, Dry Weight Start Date: 04/28/20 Stop Date: 04/23/21 Status: Ordered lisinopril 40 mg oral tablet 1 tablet = 40 mg, By Mouth, Daily, # 90 tablet, 4 Refills, Maintenance, 02/03/20 12:39:00 EDT, Tablet, [facility] #[id number], 170, cm, 12/16/19 10:11:00 EST, Height, 100.5, kg, 05/30/19 9:39:00EDT, Dry Weight Start Date: 02/03/20 Stop Date: 04/28/21 Status: Ordered Melatonin 5 mg oral tablet 0 Refills, Maintenance, 01/29/19 10:09:09 EDT Start Date: 01/29/19 Status: Ordered meloxicam 5 mg oral capsule 1 capsule = 5 mg, By Mouth, Daily, # 5 capsule, 0 Refills, Maintenance, 02/03/20 10:30:00 EDT, Capsule, [facility] #[id number], 170, cm, 12/16/19 10:11:00 EST, Height, 100.5, kg, 05/30/19 9:39:00 EDT, Dry Weight Start Date: 02/03/20 Stop Date: 02/08/20 Status: Ordered NovoLOG 100 units/mL injectable solution = 20 units, Subcutaneous Infusion, 3 times a day before meals, replaces humalog, # 50 mL, 1 Refills, Maintenance, 02/09/20 16:58:00 EDT, [facility] #[id number], 170, cm, 12/16/19 10:11:00 EST, Height, 100.5, kg, 05/30/19 9:39:00 EDT, Dry Weight Start Date: 02/09/20 Status: Ordered OXcarbazepine 300 mg oral tablet TK 1 T PO BID Start Date: 01/29/19 Status: Ordered PARoxetine 40 mg oral tablet TK 1 T PO HS Start Date: 01/29/19 Status: Ordered Pen [place], 31 G x 5 mm BD Ultra [...] 5 Refills, Maintenance, 02/03/20 10:19:00 EDT, Solution, [facility] #[id number], 170, cm, 12/16/19 10:11:00 EST, Height, 100.5, [...] Umbilical hernia(Confirmed) Active 1per 2017 and 2019 [facility] notes Social History Social History Type Response Smoking Status Never (less than 100 in lifetime) entered on: 09/03/19 Sex Female 1per pt
--- OUTSIDE RECORDS SUMMARY | 2023-02-20 15:21 | XMS_ITS | Continuity of Care Document ---
Author Name Unknown Organization [facility] Address [address] [place] [address]- Care Team Providers Care Toddler Guide Name Role Phone Sangeetha MOSHER, Marcia Koroma Primary Care Physician Encounter [facility] [place] Date(s): 09/15/20 - 10/15/20 [facility] [address] [place] [address]- Attending Physician: Satish Whittington Admitting Physician: Satish Whittington Referring Physician: Satish Whittington Allergies, Adverse Reactions, Alerts Substance Reaction Severity Status ibuprofen ABD PAIN Active morphine Vomiting and itchy Active traMADol Itchy, Hives Active Immunizations Given and Recorded Vaccine Date Status Refusal Reason tetanus-diphtheria toxoids (Td) 09/03/19 Given influenza virus vaccine, inactivated 1 08/15/11 Gi jeanp-aul influenza virus vaccine, inactivated 2 10/21/09 Gi jean-paul influenza virus vaccine, inactivated 09/16/08 Give n Tet/Diphth/Acel, Pertussis (oldterm) 3 10/14/08 Gi jean-paul Pneumococcal Vaccine (oldterm) 09/16/08 Given Not Given Vaccine Date Status Refusal Reason pneumococcal 23-valent vaccine 05/31/19 Not Given Patient Refuses 1Admin Note: VIS GIVEN-DATED 05/30/11 2Result Comment: LOT [id number] EXP 04 MAY 2010 3Admin Note: VIS given Medications albuterol 90 mcg/inh inhalation powder 2 puffs, Inhalation, Every 6 hours, PRN as needed, # 1 each, 3 Refills, Maintenance, 09/05/19 10:48:00 EDT, Powder, 2 puffs Inhalation Every 6 hours,PRN:as needed Start Date: 11/1/19 Status: Ordered Alcohol Wipes See Instructions, # [...] 07/30/20 18:34:00 EDT, Route to Pharmacy Electronically, [facility] #[id number], 170, cm, 05/20/20 14:48:00 EDT, Height, 100.5, kg, 05/30/19 9:39:00 EDT, Dry... Start Date: 07/30/20 Stop Date: 07/25/21 Status: Ordered aspirin 81 mg oral delayed release tablet 81 mg, 1, tablet, By Mouth, Daily, # 30 tablet, Refills 11, Tot. Refills 11, Maintenance, 05/20/20 14:45:00 EDT, Route to Pharmacy Electronically, [facility] #[id number], 170, cm, 05/20/20 14:08:00 EDT, Height, 100.5, kg, 05/30/19 9:39:00 EDT, Start Date: 05/20/20 Status: Ordered atorvastatin 10 mg oral tablet 1 tablet = 10 mg, By Mouth, Daily, # 30 tablet, 11 Refills, Maintenance, 05/20/20 14:46:00 EDT, [facility] #[id number], 170, cm, 05/20/20 14:08:00 EDT, Height, 100.5, [...] 03/06/19 17:12:53 EDT, Route to Pharmacy Electronically, [id number], [facility] [address] Start Date: 03/06/19 Status: Ordered hydrocortisone 0.5% topical ointment 1 application, Topically, 2 times a day, # 28 Gm, 0 Refills, Maintenance, 09/02/20 14:20:00 EDT, Ointment, [facility] #56759, 1 application Topically 2 times a day, [...] 09/10/20 18:41:00 EST, pt [facility] transferred to [facility]... Start Date: 09/10/20 Stop Date: 03/09/21 Status: Ordered Insulin Syringe, BD Ultra-Fine 0.5 cc 31 G x 8 mm (16in) See Instructions, # 150 each, Refills 11, Tot. Refills 11, Maintenance, use as directed for Type 2 Diabetes Mellitus to admisiter insulin four times a day. Dx; E11.9, 05/15/21 15:10:00 EDT, pt was transferred to [facility], all meds left beh... Start Date: 05/15/21 Stop Date: 05/10/22 Status: Ordered Lantus 100 u/ml subcutaneous solution = 40 units, Subcutaneous Infusion, 2 times a day, # 15 mL, 3 Refills, Maintenance, 07/30/20 18:34:00 EDT, [facility] #[id number], 170, cm, 05/20/20 14:48:00 EDT, Height, 100.5, kg, 05/30/19 9:39:00 EDT, Dry Weight Start Date: 07/30/20 Stop Date: 11/27/20 Status: Ordered lidocaine 4% topical cream 1 application, Topically, Daily, for 30 days, # 30 Gm, 2 Refills, Acute 11/04/20 13:08:00 EST, 08/06/20 13:08:00 EDT, Cream, [facility] #36418, 1 application Topically Daily,x30 days, 170, cm, 05/20/20 14:48:00 EDT, Height, 100.5, kg, ... Start Date: 08/06/20 Stop Date: 11/04/20 Status: Ordered lisinopril 40 mg oral tablet 1 tablet = 40 mg, By Mouth, Daily, # 90 tablet, 4 Refills, Maintenance, 02/03/20 12:39:00 EDT, Tablet, [facility] #[id number], 170, cm, 12/16/19 10:11:00 EST, Height, 100.5, kg, 05/30/19 9:39:00EDT, Dry Weight Start Date: 02/03/20 Stop Date: 04/28/21 Status: Ordered Melatonin 5 mg oral tablet 0 Refills, Maintenance, 01/29/19 10:09:09 EDT Start Date: 01/29/19 Status: Ordered NovoLOG 100 units/mL injectable solution = 20 units, Subcutaneous Infusion, 3 times a day before meals, replaces humalog, # 50 mL, 1 Refills, Maintenance, 07/29/20 11:23:00 EDT, [facility] #[id number], 170, cm, 05/20/20 14:48:00 EDT, Height, 100.5, [...] 0 Refills, Maintenance, 09/02/20 16:16:00 EDT, Tablet, [facility] 170, cm, 05/20/20 14:48:00 EDT, Height, 100.5, kg, 05/30/19 9:39:00 EDT, Dry Weight Start Date: 09/02/20 Status: Ordered traZODone 300 mg oral tablet TK 1 T PO HS Start Date: 01/29/19 Status: Ordered triamcinolone 0.1% topical ointment 1 application, Topically, 2 times a day, apply a thin film to affected area, # 60 Gm, 0 Refills, Maintenance, 05/20/20 15:09:00 EDT, Ointment, [facility] #02378, 1 application Topically 2 times a day,x14 days,Instr:apply a thin film; to aff... Start Date: 05/20/20 Stop Date: 06/03/20 Status: Ordered Trulicity Pen 1.5 mg/0.5 mL subcutaneous solution 0.5 mL = 1.5 mg, Subcutaneous Injection, Every week, # 2.5 mL, 5 Refills, Maintenance, 07/29/20 8:56:00 EDT, Solution, [facility] #[id number], 170, cm, 05/20/20 14:48:00 EDT, Height, 100.5, [...] Umbilical hernia(Confirmed) Active 1per 2016 and [facility] notes Social History Social History Type Response Smoking Status Never (less than 100 in lifetime) entered on: 09/03/19 Sex Female 1per pt
--- OUTSIDE RECORDS SUMMARY | 2023-02-20 15:21 | XMS_ITS | Continuity of Care Document ---
Author Name Unknown Organization [facility] Address [address] [place] [address]- Care Team Providers Care Manager Field Service Name Role Phone Allegra Aguayo MD Primary Care Physician Encounter [facility] [place] Date(s): 09/20/22 - 09/27/22 [facility] [address], [place] [address] Attending Physician: Madeline Asif NP Admitting Physician: Madeline Asif NP Allergies, Adverse Reactions, Alerts Substance Reaction Severity Status ibuprofen ABD PAIN Active morphine Vomiting and itchy Active traMADol Itchy, Hives Active Immunizations Given and Recorded Vaccine Date Status Refusal Reason SARS-CoV-2 mRNA ([id number]) vax 02/22/22 Recorded SARS-CoV-2 (COVID-19) mRNA BNT-162b2 [...] Note: VIS GIVEN-DATED 05/30/11 2Result Comment: LOT [id number] EXP 04 MAY 2010 3Admin Note: VIS [...] 13:18:00 EST, Route to Pharmacy Electronically, [facility]/pharmacy #[id number], Partial fill upon patient req... Start Date: [...] 04/24/22 9:05:00 EDT, Route to Pharmacy Electronically, [facility], Partial fill upon patient request if the prescription is for a schedule II opio... Start Date: 04/24/22 Status: Ordered ammonium lactate 5% topical lotion 1 application, Topically, 2 times a day, # 240 Gm, 0 Refills, Maintenance, 05/01/22 12:34:00 EDT, Lotion, [facility]/pharmacy #[id number], Partial fill upon patient request if the prescription is for a schedule II opioid drug., 1 application Topically 2 times a da... Start Date: 05/01/22 Stop Date: 05/31/22 Status: Ordered aspirin 81 mg oral delayed release tablet 81 mg, By Mouth, Daily, # 30 tablet, Refills 5, Tot. Refills 5, Maintenance, 05/13/22 16:40:00 EDT,Route to Pharmacy Electronically, [facility], Partial fill upon patient request if the prescription is for a schedule II opioid drug.,... Start Date: 05/13/22 Stop Date: 11/09/22 Status: Ordered atorvastatin 40 mg oral tablet 1 tablet = 40 mg, By Mouth, Daily, # 90 tablet, 2 Refills, Maintenance, 04/24/22 9:41:00 EDT, Tablet, [facility], Partial fill upon patient request [...] EDT, [id number] Partial fill upon patient request if the prescription is for a schedule II opi... Start Date: 07/26/22 Stop Date: 01/22/23 Status: Ordered Colace sodium 100 mg oral capsule 100 mg, 1, capsule, By Mouth, 2 times a day, PRN, # 60 capsule, Refills 0, Tot. Refills 0, Maintenance, for constipation, 03/16/22 14:30:00 EDT, Route to Pharmacy Electronically, [facility], Partial fill upon patient request [...] Refills, Maintenance, 09/21/22 11:57:00 EST, Tablet, [facility]/pharmacy #[id number], Partial fill upon patient [...] 07/07/22 15:52:00 EDT, Route to Pharmacy Electronically, [facility], Partial fill upon patient request [...] 6 Refills, Soft Stop, 08/01/22 16:09:00EDT, Solution, [facility], Partial fill upon patient request [...] EST, [id number] Partial fillupon patient request if the prescription is for a s... Start Date: 09/20/22 Status: Ordered levoFLOXacin 250 mg oral tablet 1 tablet = 250 mg, By Mouth, Every 24 hours, # 14 tablet, 0 Refills, Maintenance, 09/20/22 11:28:00EST, Tablet, [facility]/pharmacy #[id number], Partial fill upon patient request if the prescription is for a schedule II opioid drug., 169, cm, 09/20/22 9:22:00 EST... Start Date: 09/20/22 Stop Date: 10/04/22 Status: Ordered lisinopril 10 mg oral tablet 10 mg, 1, tablet, By Mouth, Daily, # 90 tablet, Refills 4, Tot. Refills 4, Maintenance, 07/12/22 10:12:00 EDT, Route to Pharmacy Electronically, [facility][id number], Partial fill upon patientrequest if the prescription is for a schedule II op... Start Date: 07/12/22 Stop Date: 10/05/23 Status: Ordered NovoLOG FlexPen 100 units/mL injectable solution = 20 units, Subcutaneous Injection, 3 times a day before meals, INJECT 20 UNITS INTO SKIN THREE TIMES DAILY BEFORE A MEAL, # 15 mL, 10 Refills, Maintenance, 08/01/22 16:09:00 EDT, [facility], 169, cm, 08/01/22 14:14:00 EDT, Height, [...] 15:20:00 EST, 09/27/22 15:20:00 EST, Tablet, [facility]/pharmacy #[id number], Partial fill upon patient request if the [...] 04/24/22 9:03:00 EDT, Route to Pharmacy Electronically, [facility], Partial fill upon patient request if the prescription is for a schedule II opio... Start Date: 04/24/22 Status: Ordered ProAir HFA 90 mcg/inh inhalation aerosol 1 puffs, Inhalation, Every 4 hours, PRN as needed for wheezing, # 18 Gm, 0 Refills, Maintenance, 04/18/22 9:51:00 EDT, Aerosol, [facility], Partial fill upon patient request [...] 4 Refills, Maintenance, 07/19/22 10:42:00 EDT, Solution, [id number], Partial fill upon patient request if the prescription is for a schedule II opioid drug.... Start Date: 07/19/22 Status: Ordered Ventolin HFA 108 mcg/inh inhalation aerosol with adapter 2 puffs, Inhalation, Every 6 hours, PRN Wheezing/Shortness of Breath, # 8 Gm, 1 Refills, Maintenance, 05/30/22 10:56:00 EDT, [facility] Partial fill upon patient request [...] Obese class II Confirmed Active BHN/CCA/CP- [place] [phone] [facility] active care coordination Confirmed Active Peripheral vascular disease - right SFA angioplasty/right great toe amputation 2021 Confirmed Active Umbilical hernia Confirmed Active 1per 2016 and 2019 [place] notes Vital Signs Most recent to oldest [Reference Range]: 1 Height 169 cm (09/20/22 9:22 AM) Weight 103.42 kg (09/20/22 9:22 AM) Oxygen Saturation [94-100 %] 95 % (09/20/22 9:22 AM) Pulse Rate [55-90 bpm] 71 bpm (09/20/22 9:22 AM) Body Mass Index [18.5-24.99 kg/m2] 36.21 kg/m2 *>HHI* (09/20/22 9:22 AM) Blood Pressure [90-138/55-84 mm Hg] 162/ 88mm Hg *H* (09/20/22 9:22 AM) Mode of Delivery (Oxygen) Room air (09/20/22 9:22 AM) Blood pressure sites Arm, left (09/20/22 9:22 AM) Dry Weight 103.42 kg (09/20/22 9:22 AM) Weight Obtained Via Patient/family state d (09/20/22 9:22 AM) Dry Weight Obtained Via Patient/family s tated (09/20/22 9:22 AM) Social History Social History Type Response Smoking Status Never (less than 100 in lifetime) entered on: 09/03/19 Sex 1per pt Note * Kobe Eldridge: PERFORM, SIGN, VERIFY Event Display: Patient Education/Instruction Authored Date: [id number] [facility] [address] Clinical Summary Name SUZIE COPPOLA Age 46 Years 1975 PCP Allegra Aguayo MD PCP Visit Date 09/20/2022 09:45:00 Additional Instructions: Scheduled Appointments?? Future Appointments ?*[facility] [address] ?[place],??[place],??[address] ?Phone:??--?Fax:??-- ?Appt. Date:??09/21/2022?7:20 PM ?Scheduled Provider:??Ashley Vences MD ?*[facility] ?Phone:??--?Fax:??-- ?Appt. Date:??09/25/2022?11:00 AM ?Scheduled Provider:??[facility] Follow-Up Instructions ?? Diagnosis Medications: Please continue your medications until treatment is completed or stopped by your provider. Discuss any questions related to medications with your provider. New Medications [facility]/pharmacy #[id number], [address], [place] [phone], [phone] Levofloxacin (levoFLOXacin 250 mg oral tablet) 1 tab(s) Oral every 24 hours for 14 Days. Refills: 0. Next Dose: Oxycodone (oxyCODONE 10 mg oral tablet) 1 tab(s) Oral every 12 hours for 7 Days. Refills: 0. Next Dose: - Collagenase Topical (Santyl 250 u/gm ointment) 1 hernan Topically Daily. uase as directed to right great and second toes. Refills: 1. Next Dose: Durable Medical Equipment (1/4 inch palin nugauze) use 2nd toe wound as directed. Refills: 1. Next Dose: Durable Medical Equipment (wedge pillow) use to elevate right leg to control swelling. Refills: 0. Next Dose: Medications to Continue Taking That Have Changed [id number], [address], [place] [phone], [phone] - Furosemide (Lasix 20 mg oral tablet) 1 capsule Oral once. take one pill daily for 3 days. Refills: 0. Next Dose: These medications were not printed or sent to your pharmacy - Furosemide (furosemide 20 mg oral tablet) 1 tab(s) Oral Daily. Refills: 5. Next Dose: Medications to Continue with No [...] tab(s) Oral Daily. Refills: 5. Next Dose: Docusate (Colace sodium 100 mg [...] 0. Next Dose: Durable Medical Equipment (Wheel chair) Dx Diabetic foot ulcer. Refills: 0. Next Dose: Durable Medical Equipment (Wheelchair) please suppy wheel chair to patient to get around and keep weight off leg. Refills: 0. Next Dose: Insulin Aspart (NovoLOG [...] 103.42 kg BMI 36.21 kg/m2 Blood Pressure 162 mm Hg/88 mm Hg Temperature Pulse Rate 71 bpm Respiratory Rate 02 Sat Mode of Delivery 95 %/Room air You can now view a summary of your hospital visit from the comfort of your home through a free online portal called [employer]. [employer] is a website that allows you to securely view your medical information including discharge summary, medications and follow-up visits. ??You can alsosend a secure electronic message to your doctor???s office to request appointments, renew medications or just ask a question. You can enroll at [email or web address] or register during your next office [...] care provider, you may find a [facility] provider by calling [facility] [employer] at [phone]. For information about the plan of care including goals and instructions for your diagnosis, please see the patient education orders section of this document. Patient Education Materials?? The content of this educational material or handout may have been modified, supplemented, or adapted from its original content and format to support your individualized medical care. * Kobe Eldridge: SIGN, VERIFY, PERFORM Event Display: Patient Education/Instruction Authored Date: [id number] [facility] [address] Clinical Summary Name SUZIE COPPOLA Age 46 Years 1975 PCP Allegra Aguayo MD PCP Visit Date 09/20/2022 09:04:00 Additional Instructions: Scheduled Appointments?? Future Appointments ?*[facility] [address] ?[place],??[place],??[address] ?Phone:??--?Fax:??-- ?Appt. Date:??09/20/2022?4:00 PM ?Scheduled Provider:??Le GAGANDEEP, Jonah ?*[facility] ?Phone:??--?Fax:??-- ?Appt. Date:??09/25/2022?11:00 AM ?Scheduled Provider:??Vascular [...] tab(s) Oral Daily. Refills: 5. Next Dose: Docusate (Colace sodium 100 mg [...] 0. Next Dose: Durable Medical Equipment (Wheel chair) Dx Diabetic foot ulcer. Refills: 0. Next Dose: Durable Medical Equipment [...] 103.42 kg BMI 36.21 kg/m2 Blood Pressure 162 mm Hg/88 mm Hg Temperature Pulse Rate 71 bpm Respiratory Rate 02 Sat Mode of Delivery 95 %/Room air You can now view a summary of your hospital visit from the comfort of your home through a free online portal called [employer]. [employer] is a website that allows you to securely view your medical information including discharge summary, medications and follow-up visits. ??You can alsosend a secure electronic message to your doctor???s office to request appointments, renew medications or just ask a question. You can enroll at [email or web address] or register during your next office [...] care provider, you may find a [facility] provider by calling [facility] [employer] at [phone]. For information about the plan of care [...] HOSPITAL Resident Member Role: PCP Address: Address: [address] [place] [address] Name: Vera Locke RN Position: S RN Member Role: Primary Care Nurse Name: Baljit Martínez RN Position: [facility] RN Member [...] Name: MIKEY SEAY Address: home [address] [address] Name: MIKEY AYALA Address: home [address] [place] [address] Name: TANIA COPPOLA Address: home [address] [place] [address] Name: TANIA MUÑIZ Address: home [address] [place] [address]
--- OUTSIDE RECORDS SUMMARY | 2023-02-20 15:21 | XMS_ITS | Continuity of Care Document ---
Author Name Unknown Organization [facility] Address [address] [place] [address]- Care Team Providers Care Hydrometer Finisher Name Role Phone Sangeetha MOSHER, Marcia Koroma Primary Care Physician [phone] Encounter [facility] Date(s): 05/06/20 - 06/09/20 [facility] [address] [place] [address] [facility] Attending Physician: Not on Staff, Attending MD Allergies, Adverse Reactions, Alerts Substance Reaction Severity Status ibuprofen ABD PAIN Active morphine Vomiting and itchy Active traMADol Itchy, Hives Active Immunizations Given and Recorded Vaccine Date Status Refusal Reason tetanus-diphtheria toxoids (Td) 09/03/19 Given influenza virus vaccine, inactivated 1 08/15/11 Gi ejan-paul influenza virus vaccine, inactivated 2 10/21/09 Gi jean-paul influenza virus vaccine, inactivated 09/16/08 Give n Tet/Diphth/Acel, Pertussis (oldterm) 3 10/14/08 Gi jean-paul Pneumococcal Vaccine (oldterm) 09/16/08 Given Not Given Vaccine Date Status Refusal Reason pneumococcal 23-valent vaccine 05/31/19 Not Given Patient Refuses 1Admin Note: VIS GIVEN-DATED 05/30/11 2Result Comment: LOT [id number] EXP 04 MAY 2010 3Admin Note: VIS [...] 02/03/20 12:39:00 EDT, Route to Pharmacy Electronically, [facility] #[id number], 170, cm, 12/16/19 10:11:00 EST, Height, 100.5, kg, 05/30/19 9:39:00 EDT, Dry... Start Date: 02/03/20 Stop Date: 01/28/21 Status: Ordered aspirin 81 mg oral delayed release tablet 81 mg, 1, tablet, By Mouth, Daily, # 30 tablet, Refills 11, Tot. Refills 11, Maintenance, 05/20/20 14:45:00 EDT, Route to Pharmacy Electronically, [facility] #[id number], 170, cm, 05/20/20 14:08:00 EDT, Height, 100.5, kg, 05/30/19 9:39:00 EDT, . Start Date: 05/20/20 Status: Ordered atorvastatin 10 mg oral tablet 1 tablet = 10 mg, By Mouth, Daily, # 30 tablet, 11 Refills, Maintenance, 05/20/20 14:46:00 EDT, [facility] #[id number], 170, cm, 05/20/20 14:08:00 EDT, Height, 100.5, [...] 03/06/19 17:12:53 EDT, Route to Pharmacy Electronically, [id number], [facility] [address] Start Date: 03/06/19 Status: Ordered Insulin Syringe, BD Ultra-Fine 0.5 cc 31 G x 8 mm (5/16in) See Instructions, # 150 each, Refills 11, Tot. Refills 11, Maintenance, use as directed for Type 2 Diabetes Mellitus to admisiter insulin four times a day. Dx; E11.9, 05/20/20 15:10:00 EDT, pt was transferred to [facility], all meds left beh... Start Date: 05/20/20 Stop Date: 05/15/21 Status: Ordered Lantus 100 u/ml subcutaneous solution = 40 units, Subcutaneous Infusion, 2 times a day, # 15 mL, 11 Refills, Maintenance, 04/28/20 11:50:00 EDT, [facility] #[id number], 170, cm, 04/02/20 13:31:00 EDT, Height, 100.5, kg, 05/30/19 9:39:00 EDT, Dry Weight Start Date: 04/28/20 Stop Date: 04/23/21 Status: Ordered lisinopril 40 mg oral tablet 1 tablet = 40 mg, By Mouth, Daily, # 90 tablet, 4 Refills, Maintenance, 02/03/20 12:39:00 EDT, Tablet, [facility] #04389, 170, cm, 12/16/19 10:11:00 EST, Height, 100.5, kg, 05/30/19 9:39:00EDT, Dry Weight Start Date: 02/03/20 Stop Date: 04/28/21 Status: Ordered Melatonin 5 mg oral tablet 0 Refills, Maintenance, 01/29/19 10:09:09 EDT Start Date: 01/29/19 Status: Ordered NovoLOG 100 units/mL injectable solution = 20 units, Subcutaneous Infusion, 3 times a day before meals, replaces humalog, # 50 mL, 1 Refills, Maintenance, 02/09/20 16:58:00 EDT, [facility] #[id number], 170, cm, 12/16/19 10:11:00 EST, Height, 100.5, [...] 0 Refills, Maintenance, 05/20/20 15:09:00 EDT, Ointment, [facility] #58635, 1 application Topically 2 times a day,x14 days,Instr:apply a thin film; to aff... Start Date: 05/20/20 Stop Date: 06/03/20 Status: Ordered Trulicity Pen 1.5 mg/0.5 mL subcutaneous solution 0.5 mL = 1.5 mg, Subcutaneous Injection, Every week, # 2.5 mL, 5 Refills, Maintenance, 02/03/20 10:19:00 EDT, Solution, [facility] #[id number], 170, cm, 12/16/19 10:11:00 EST, Height, 100.5, [...]
--- OUTSIDE RECORDS SUMMARY | 2023-02-20 15:21 | XMS_ITS | Continuity of Care Document ---
Author Name Unknown Organization [facility] Address [address] [place] [address]- Care Team Providers Care Training Intern Name Role Phone Nilesh DONIS, Arlette Primary Care Physician Encounter [facility] Date(s): 03/31/20 - 05/08/20 [facility] [address] [place] [address] [facility] Attending Physician: Luis F Rowland MD Admitting [...] Note: VIS GIVEN-DATED 05/30/11 2Result Comment: LOT [id number] EXP 04 MAY 2010 3Admin Note: VIS [...] 02/03/20 12:39:00 EDT, Route to Pharmacy Electronically, [facility] #[id number], 170, cm, 12/16/19 10:11:00 EST, Height, 100.5, [...] 03/06/19 17:12:53 EDT, Route to Pharmacy Electronically, [id number], [facility] [address] Start Date: 03/06/19 Status: Ordered insulin glargine 100 u/ml subcutaneous solution See Instructions, 40 units in the MORNING and 40 units AT BEDTIME Subcutaneous Injection dx E11.9 Rotate injection sites, # 60 mL, 1 Refills, Maintenance, 02/09/20 16:59:00 EDT, Solution, [facility] #[id number], 170, cm, 12/16/19 10:11:00 EST,... Start Date: 02/09/20 Status: Ordered Insulin Syringe, BD Ultra-Fine 0.5 cc 31 G x 8 mm (5/16in) See Instructions, # 150 each, Refills 11, Tot. Refills 11, Maintenance, use as directed for Type 2 Diabetes Mellitus to admisiter insulin four times a day. Dx; E11.9, 05/13/19 13:22:55 EDT, pt was transferred to [facility], all meds left beh... Start Date: 05/13/19 Stop Date: 05/07/20 Status: Ordered Lantus 100 u/ml subcutaneous solution = 40 units, Subcutaneous Infusion, 2 times a day, # 15 mL, 11 Refills, Maintenance, 04/28/20 11:50:00 EDT, [facility] #[id number], 170, cm, 04/02/20 13:31:00 EDT, Height, 100.5, kg, 05/30/19 9:39:00 EDT, Dry Weight Start Date: 04/28/20 Stop Date: 04/23/21 Status: Ordered lisinopril 40 mg oral tablet 1 tablet = 40 mg, By Mouth, Daily, # 90 tablet, 4 Refills, Maintenance, 02/03/20 12:39:00 EDT, Tablet, [facility] #08340, 170, cm, 12/16/19 10:11:00 EST, Height, 100.5, kg, 05/30/19 9:39:00EDT, Dry Weight Start Date: 02/03/20 Stop Date: 04/28/21 Status: Ordered Melatonin 5 mg oral tablet 0 Refills, Maintenance, 01/29/19 10:09:09 EDT Start Date: 01/29/19 Status: Ordered meloxicam 5 mg oral capsule 1 capsule = 5 mg, By Mouth, Daily, # 5 capsule, 0 Refills, Maintenance, 02/03/20 10:30:00 EDT, Capsule, [facility] #[id number], 170, cm, 12/16/19 10:11:00 EST, Height, 100.5, kg, 05/30/19 9:39:00 EDT, Dry Weight Start Date: 02/03/20 Stop Date: 02/08/20 Status: Ordered NovoLOG 100 units/mL injectable solution = 20 units, Subcutaneous Infusion, 3 times a day before meals, replaces humalog, # 50 mL, 1 Refills, Maintenance, 02/09/20 16:58:00 EDT, [facility] #[id number], 170, cm, 12/16/19 10:11:00 EST, Height, 100.5, kg, 05/30/19 9:39:00 EDT, Dry Weight Start Date: 02/09/20 Status: Ordered OXcarbazepine 300 mg oral tablet TK 1 T PO BID Start Date: 01/29/19 Status: Ordered PARoxetine 40 mg oral tablet TK 1 T PO HS Start Date: 01/29/19 Status: Ordered Pen [place], 31 G x 5 mm BD Ultra [...] 5 Refills, Maintenance, 02/03/20 10:19:00 EDT, Solution, [facility][id number], 170, cm, 12/16/19 10:11:00 EST, Height, 100.5, [...] Umbilical hernia(Confirmed) Active 1per 2016 and 2019 [facility] notes Social History Social History Type Response Smoking Status Never (less than 100 in lifetime) entered on: 09/03/19 Sex Female 1per pt
--- OUTSIDE RECORDS SUMMARY | 2023-02-20 15:21 | XMS_ITS | Continuity of Care Document ---
Author Name Unknown Organization [facility] Address [address] [place] [address]- Care Team Providers Care Security Shift Manager Name Role Phone Josef MOSHER, Mamie Patterson Primary Care Physician Encounter [facility] Date(s): 12/27/21 - 01/26/22 [facility] [address] [place] [address]- Allergies, Adverse Reactions, Alerts Substance Reaction Severity [...] Note: VIS GIVEN-DATED 05/30/11 2Result Comment: LOT [id number] EXP 04 MAY 2010 3Admin Note: VIS [...] 12/29/21 10:02:00 EST, Route to Pharmacy Electronically, [facility] #[id number], 170, cm, 07/28/21 10:50:00 EDT, Height Start Date: 12/29/21 Stop Date: 03/24/23 Status: Ordered atorvastatin 10 mg oral tablet 1 tablet, By Mouth, Daily, # 90 tablet, 1 Refills, Maintenance, 12/13/21 19:21:00 EST, [facility] #77940, 170, cm, 07/28/21 10:50:00 EDT, Height Start [...] 12/29/21 10:02:00 EST, Route to Pharmacy Electronically, [facility] #[id number], Partial fill upon patientrequest if the prescription [...] tablet, 11 Refills, Maintenance, 12/29/21 10:02:00 EST, [facility] #[id number], resent - not recvd, 170, cm, 07/28/21 10:50:00 EDT, Height Start Date: 12/29/21 Status: Ordered Lantus 100 u/ml subcutaneous solution = 45 units, Subcutaneous Infusion, 2 times a day, changed from PEN, pt requesting vials, # 12 mL, 11 Refills, Maintenance, 01/11/22 9:45:00 EST, [facility] #11578, Partial fill upon patientrequest if the prescription is for a schedule II op... Start Date: 01/11/22 Status: Ordered lidocaine 5% topical ointment 1 application, Topically, 3 times a day, wash hands thoroughly after application, prn pain, # 50 Gm, 0 Refills, Maintenance, 01/11/22 9:49:00 EST, Ointment, [facility] #31174, Partial fill upon patient request if the prescription is for a sc... Start Date: 01/11/22 Status: Ordered lisinopril 40 mg oral tablet 1 tablet = 40 mg, By Mouth, Daily, # 90 tablet, 4 Refills, Maintenance, 07/20/21 9:25:00 EDT, Tablet, [facility] #08646, 170, cm, 07/20/21 8:57:00 EDT, Height Start Date: 07/20/21 Stop Date: 10/13/22 Status: Ordered NovoLOG 100 units/mL injectable solution See Instructions, ADMINISTER 20 UNITS UNDER THE SKIN THREE TIMES DAILY BEFORE MEALS 90 DAY SUPPLY REQUESTED, # 30 mL, 2 Refills, [facility] #20511, 170, cm, 07/28/21 10:50:00 EDT, Height Start [...] INJECTION SITES, # 2 mL, 0 Refills, [facility] #[id number], 170, cm, 07/28/21 10:50:00 EDT, Height Start Date: 01/10/22 Status: Ordered Ventolin HFA 108 mcg/inh inhalation aerosol with adapter 1 puffs, Inhalation, 4 times a day, PRN NEEDED FOR WHEEZING, # 18 Gm, 0 Refills, [facility] #[id number], 170, cm, 01/11/22 9:39:00 EST, Height Start [...] Obese class I(Confirmed) Active BHN/CCA/[facility] [phone][facility] care coordination(Confirmed) Active Peripheral vascular disease(Confirmed) Active Umbilical hernia(Confirmed) Active 1per 2016 and 2018 [facility] notes Social History Social History Type Response Smoking Status Never (less than 100 in lifetime) entered on: 09/03/19 Sex Female 1per pt
--- OUTSIDE RECORDS SUMMARY | 2023-02-20 15:21 | XMS_ITS | Continuity of Care Document ---
Author Name Unknown Organization [facility] (Formerly [facility])[3] Adult Medicine Address [address] [place] [address]- Care Team Providers Care Neck Band Maker Name Role Phone Sangeetha MOSHER, Marcia Koroma Primary Care Physician [phone] Encounter [facility] Date(s): 12/17/20 - 01/16/21 [facility] ([facility]3] Adult Medicine [address] [place] [id number] Allergies, Adverse Reactions, Alerts [...] Note: VIS GIVEN-DATED 05/30/11 2Result Comment: LOT [id number] EXP 04 MAY 2010 3Admin Note: VIS given Medications albuterol 90 mcg/inh inhalation powder 2 puffs, Inhalation, Every 6 hours, PRN as needed, # 1 each, 11 Refills, Maintenance, 12/08/20 11:02:00 EST, Powder, [facility] #[id number], 2 puffs Inhalation Every 6 hours,PRN:as needed, [...] 07/30/20 18:34:00 EDT, Route to Pharmacy Electronically, [facility] #[id number], 170, cm, 05/20/20 14:48:00 EDT, Height, 100.5, kg, 05/30/19 9:39:00 EDT, Dry... Start Date: 07/30/20 Stop Date: 07/25/21 Status: Ordered aspirin 81 mg oral delayed release tablet 81 mg, 1, tablet, By Mouth, Daily, # 30 tablet, Refills 11, Tot. Refills 11, Maintenance, 05/20/20 14:45:00 EDT, Route to Pharmacy Electronically, [facility] #[id number], 170, cm, 05/20/20 14:08:00 EDT, Height, 100.5, kg, 05/30/19 9:39:00 EDT, Start Date: 05/20/20 Status: Ordered atorvastatin 10 mg oral tablet 1 tablet = 10 mg, By Mouth, Daily, # 30 tablet, 11 Refills, Maintenance, 05/20/20 14:46:00 EDT, [facility] #[id number], 170, cm, 05/20/20 14:08:00 EDT, Height, 100.5, [...] 0 Refills, Maintenance, 09/02/20 14:20:00 EDT, Ointment, [facility] #[id number], 1 application Topically 2 times a day, [...] pt was transferred to [facility]... Start Date: 09/10/20 Stop Date: 03/09/21 Status: Ordered Insulin Syringe, BD Ultra-Fine 0.5 cc 31 G x 8 mm (5/16in) See Instructions, # 150 each, Refills 11, Tot. Refills 11, Maintenance, use as directed for Type 2 Diabetes Mellitus to admisiter insulin four times a day. Dx; E11.9, 05/15/21 15:10:00 EDT, pt was transferred to [facility], all meds left [facility]... Start Date: 05/15/21 Stop Date: 05/10/22 Status: Ordered Lantus 100 u/ml subcutaneous solution = 40 units, Subcutaneous Infusion, 2 times a day, # 15 mL, 3 Refills, Maintenance, 12/16/20 14:02:00 EST, [facility] #[id number], 170, cm, 05/20/20 14:48:00 EDT, Height, 100.5, kg, 05/30/19 9:39:00 EDT, Dry Weight Start Date: 12/16/20 Stop Date: 04/15/21 Status: Ordered lisinopril 40 mg oral tablet 1 tablet = 40 mg, By Mouth, Daily, # 90 tablet, 4 Refills, Maintenance, 02/03/20 12:39:00 EDT, Tablet, [facility] #[id number], 170, cm, 12/16/19 10:11:00 EST, Height, 100.5, [...] mL, 1 Refills, Maintenance, 12/17/20 13:06:00 EST, [facility] #[id number], 170, cm, 05/20/2014:48:00 EDT, Height, 100.5, kg, 05/30/19 9:39:00 E... Start Date: 12/17/20 Status: Ordered OXcarbazepine 300 mg oral tablet TK 1 T PO BID Start Date: 01/29/19 Status: Ordered PARoxetine 40 mg oral tablet TK 1 T PO HS Start Date: 01/29/19 Status: Ordered Pen [place], 31 G x 5 mm BD Ultra [...] 1 Refills, Maintenance, 12/21/20 10:40:00 EST, Tablet, [facility] #[id number], Partial fill upon patient request if the [...] 0 Refills, Maintenance, 05/20/20 15:09:00 EDT, Ointment, [facility] #[id number], 1 application Topically 2 times a day,x14 days,Instr:apply a thin film; to aff... Start Date: 05/20/20 Stop Date: 06/03/20 Status: Ordered Trulicity Pen 0.75 mg/0.5 mL subcutaneous solution 0.5 mL = 0.75 mg, Subcutaneous Injection, Every week, rotate injection sites, # 2 mL, 2 Refills, Maintenance, 01/03/21 13:20:00 EST, Solution, [facility] #[id number], Partial fill upon patient request if the prescription is for a schedule II opio... Start Date: 01/03/21 Status: Ordered Trulicity Pen 1.5 mg/0.5 mL subcutaneous solution 0.5 mL = 1.5 mg, Subcutaneous Injection, Every week, # 2.5 mL, 5 Refills, Maintenance, 01/25/21 8:56:00 EDT, [facility] #[id number], 170, cm, 05/20/20 14:48:00 EDT, Height, 100.5, [...] Microalbuminuria(Confirmed) Active Morbid obesity(Confirmed) Active BHN/KELVIN/AUDRA-Mignon Peters [phone]/Health fpc active care coordination(Confirmed) Active Peripheral vascular disease(Confirmed) Active Umbilical hernia(Confirmed) Active 1per 2017 and 2018 [facility] notes Social History Social History Type Response Smoking Status Never (less than 100 in lifetime) entered on: 09/03/19 Sex Female 1per pt
--- OUTSIDE RECORDS SUMMARY | 2023-02-20 15:21 | XMS_ITS | Continuity of Care Document ---
Author Name Unknown Organization [facility] Adult Medicine Address [address] [place] [address]- Care Team Providers Care Junior Linux Systems Administrator Name Role Phone Sangeetha MOSHER, Marcia Koroma Primary Care Physician [facility]counter [facility] Date(s): 07/30/20 - 08/29/20 [facility] Adult Medicine [address] [place] [address]- [facility] Allergies, Adverse Reactions, Alerts Substance Reaction [...] Note: VIS GIVEN-DATED 05/30/11 2Result Comment: LOT [id number] EXP 04 MAY 2010 3Admin Note: VIS [...] 07/30/20 18:34:00 EDT, Route to Pharmacy Electronically, [facility] #[id number], 170, cm, 05/20/20 14:48:00 EDT, Height, 100.5, kg, 05/30/19 9:39:00 EDT, Dry... Start Date: 07/30/20 Stop Date: 07/25/21 Status: Ordered aspirin 81 mg oral delayed release tablet 81 mg, 1, tablet, By Mouth, Daily, # 30 tablet, Refills 11, Tot. Refills 11, Maintenance, 05/20/20 14:45:00 EDT, Route to Pharmacy Electronically, [facility] #[id number], 170, cm, 05/20/20 14:08:00 EDT, Height, 100.5, kg, 05/30/19 9:39:00 EDT, . Start Date: 05/20/20 Status: Ordered atorvastatin 10 mg oral tablet 1 tablet = 10 mg, By Mouth, Daily, # 30 tablet, 11 Refills, Maintenance, 05/20/20 14:46:00 EDT, [id number], 170, cm, 05/20/20 14:08:00 EDT, Height, 100.5, [...] 03/06/19 17:12:53 EDT, Route to Pharmacy Electronically, [id number][id number] Start Date: 03/06/19 Status: Ordered Insulin Syringe, BD Ultra-Fine 0.5 cc 31 G x 8 mm (516in) See Instructions, # 150 each, Refills 11, Tot. Refills 11, Maintenance, use as directed for Type 2 Diabetes Mellitus to admisiter insulin four times a day. Dx; E11.9, 05/15/21 15:10:00 EDT, pt was transferred to [facility], all meds left beh... Start Date: 05/15/21 [...] E11.9,05/20/20 15:10:00 EDT, pt was transferred to [facility].. Start Date: 05/20/20 Stop Date: 05/15/21 Status: Ordered Lantus 100 u/ml subcutaneous solution = 40 units, Subcutaneous Infusion, 2 times a day, # 15 mL, 3 Refills, Maintenance, 07/30/20 18:34:00 EDT, [facility] #[id number], 170, cm, 05/20/20 14:48:00 EDT, Height, 100.5, kg, 05/30/19 9:39:00 EDT, Dry Weight Start Date: 07/30/20 Stop Date: 11/27/20 Status: Ordered lidocaine 4% topical cream 1 application, Topically, Daily, for 30 days, # 30 Gm, 2 Refills, Acute 11/04/20 13:08:00 EST, 08/06/20 13:08:00 EDT, Cream, [facility] #[id number], 1 application Topically Daily,x30 days, 170, cm, 05/20/20 14:48:00 EDT, Height, 100.5, kg, ... Start Date: 08/06/20 Stop Date: 11/04/20 Status: Ordered lisinopril 40 mg oral tablet 1 tablet = 40 mg, By Mouth, Daily, # 90 tablet, 4 Refills, Maintenance, 02/03/20 12:39:00 EDT, Tablet, [facility] #[id number], 170, cm, 12/16/19 10:11:00 EST, Height, 100.5, kg, 05/30/19 9:39:00EDT, Dry Weight Start Date: 02/03/20 Stop Date: 04/28/21 Status: Ordered Melatonin 5 mg oral tablet 0 Refills, Maintenance, 01/29/19 10:09:09 EDT Start Date: 01/29/19 Status: Ordered NovoLOG 100 units/mL injectable solution = 20 units, Subcutaneous Infusion, 3 times a day before meals, replaces humalog, # 50 mL, 1 Refills, Maintenance, 07/29/20 11:23:00 EDT, [facility] #[id number], 170, cm, 05/20/20 14:48:00 EDT, Height, 100.5, [...] 0 Refills, Maintenance, 05/20/20 15:09:00 EDT, Ointment, [facility] #[id number], 1 application Topically 2 times a day,x14 days,Instr:apply a thin film; to aff... Start Date: 05/20/20 Stop Date: 06/03/20 Status: Ordered Trulicity Pen 1.5 mg/0.5 mL subcutaneous solution 0.5 mL = 1.5 mg, Subcutaneous Injection, Every week, # 2.5 mL, 5 Refills, Maintenance, 07/29/20 8:56:00 EDT, Solution, [facility] #[id number], 170, cm, 05/20/20 14:48:00 EDT, Height, 100.5, [...] Umbilical hernia(Confirmed) Active 1per 2016 and 2018 [facility] notes Social History Social History Type Response Smoking Status Never (less than 100 in lifetime) entered on: 09/03/19 Sex Female 1per pt
--- OUTSIDE RECORDS SUMMARY | 2023-02-20 15:21 | XMS_ITS | Continuity of Care Document ---
Author Name Unknown Organization [facility] Address [address] [place] [address]- Care Team Providers Care Slotter Operator Name Role Phone Olivier MOSHER, Allegra Primary Care Physician [phone] Encounter [facility] ACCT R [id number] Date(s): 12/29/22 - 02/18/23 [facility] [address] [place], [place] [address] Attending Physician: Victor Hugo MOSHER, Aditi Kilgore Admitting Physician: Victor Hugo MOSHER, Aditi Kilgore Referring Physician: Victor Hugo MOSHER, Aditi Kilgore Allergies, Adverse Reactions, Alerts Substance Reaction Severity Status ibuprofen ABD PAIN Active morphine Vomiting and itchy Active traMADol Itchy, Hives Active Immunizations Given and Recorded Vaccine Date Status Refusal Reason SARS-CoV-2 mRNA ([id number]) vax 02/22/22 Recorded SARS-CoV-2 (COVID-19) mRNA BNT-162b2 [...] Note: VIS GIVEN-DATED 05/30/11 2Result Comment: LOT [id number] EXP 04 MAY 2010 3Admin Note: VIS [...] 01/23/23 10:18:00 EDT, Route to Pharmacy Electronically, [facility]/pharmacy #[id number], Partial fill upon patient request if [...] 3 Refills, Maintenance, 01/23/23 10:17:00 EDT, Tablet, [facility]/pharmacy #[id number], Partial fill upon patient request if [...] 0 Refills, Maintenance, 02/14/23 11:54:00 EDT, Aerosol, [facility]/pharmacy #[id number], Partial fill upon patient request if the [...] 10/16/22 10:25:00 EST, Route to Pharmacy Electronically, [facility] #[id number], Partial fill upon patientrequest if the prescription is for a schedule II op... Start Date: 10/16/22 Status: Ordered Lantus Solostar Pen 100 units/mL subcutaneous solution See Instructions, Subcutaneous Injection, 30 units sc bid dx E11.9 dose increased 01/23/23, # 15 mL,11 Refills, Maintenance, 01/23/23 9:43:00 EDT, [facility]/pharmacy #[id number], Partial fill upon patient request if the prescription is for a schedule II opioid d... Start Date: 01/23/23 Stop Date: 01/18/24 Status: Ordered lisinopril 10 mg oral tablet 10 mg, 1, tablet, By Mouth, Daily, # 90 tablet, Refills 2, Tot. Refills 2, Maintenance, 01/23/23 10:15:00 EDT, Route to Pharmacy Electronically, [facility]/pharmacy #[id number], Partial fill upon patient request if [...] mL, 0 Refills, Maintenance, 02/16/23 9:44:00 EDT, [facility]/pharmacy #[id number], 169, cm, 02/14/23 10:47:00 EDT, Height, 103.42, kg, 10/09/22 8:... Start Date: 02/16/23 Stop Date: 05/17/23 Status: Ordered oxyCODONE 10 mg oral tablet 1 tablet = 10 mg, By Mouth, Every 12 hours, # 30 tablet, 0 Refills, Maintenance, 01/29/23 16:57:00 EDT, [facility]/pharmacy #[id number], Partial fill upon patient request if the prescription is for a schedule II opioid drug., 169, cm, 01/23/23 13:31:00 EDT, Height... Start Date: 01/29/23 Status: Ordered PARoxetine 40 mg oral tablet 40 mg, 1, tablet, By Mouth, Daily, Refills 0, Maintenance, 01/11/22 9:43:00 EST Start Date: 01/11/22 Status: Ordered Pen [place], 31 G x 5 mm BD Ultra [...] 02/20/23 2:46:00 EDT, 02/16/23 2:46:00 EDT, Tablet, [facility]/pharmacy #[id number], Partial fill upon patient request if [...] Active Morbid obesity Confirmed Active BHN/CCA/CP- [facility] [phone] senior living active care coordination Confirmed Active Peripheral vascular disease - right SFA angioplasty/right great toe amputation 2021 Confirmed Active Severe obesity Confirmed Active Umbilical hernia Confirmed Active 1per 2016 and 2018 [facility] notes Social History Social History Type Response Smoking Status Never (less than 100 in lifetime) entered on: 09/03/19 Sex 1per pt Patient Care team information Care Team Personnel Name: Allegra Aguayo MD Position: [facility] Resident Member Role: PCP Address: Address: [address] [place] [id number] Name: Mauricio RNBaljit Position: [facility] RN Member Role: Primary Care Nurse Name: Sabine Guthrie RN Position: S RN Member Role: Primary Care Nurse Name: Aditi Hernandez RN Position: [facility] RN Member Role: Primary Care Nurse Name: Piyush Moore RN Position: [facility] RN Member Role: Primary Care Nurse Name: Mis Vences RN Position: S RN Member Role: Primary Care Nurse Name: Angie Lopez RN Position: [facility] RN Member Role: Primary Care Nurse Name: Lizzie Estrada RN Position: [facility] Onco RN Member Role: Primary Care Nurse Care Team Related Persons Name: MIKEY SEAY Address: home [address] [address] Name: MIKEY AYALA Address: home [address] [place] [address] Name: TANIA COPPOLA Address: home [address] [place] [address] Name: TANIA MUÑIZ Address: home [address] [place] [id number]
--- OUTSIDE RECORDS SUMMARY | 2023-02-20 15:21 | XMS_ITS | Continuity of Care Document ---
Author Name Unknown Organization [facility] Address [address] [place] [address]- Care Team Providers Care General Repair Mechanic Name Role Phone Olivier MOSHER, Allegra Primary Care Physician Encounter [facility] Date(s): 12/29/22 - 01/28/23 [facility] [address] [place] [address]- Allergies, Adverse Reactions, Alerts Substance Reaction Severity Status ibuprofen ABD PAIN Active morphine Vomiting and itchy Active traMADol Itchy, Hives Active Immunizations Given and Recorded Vaccine Date Status Refusal Reason SARS-CoV-2 mRNA ([id number]-yhlfr) vax 02/22/22 Recorded SARS-CoV-2 (COVID-19) mRNA BNT-162b2 [...] Note: VIS GIVEN-DATED 05/30/11 2Result Comment: LOT [id number] EXP 04 MAY 2010 3Admin Note: VIS [...] 01/23/23 10:18:00 EDT, Route to Pharmacy Electronically, [facility]/pharmacy #[id number], Partial fill upon patient request [...] 10/16/22 10:25:00 EST, Route to Pharmacy Electronically, [facility] #[id number], Partial fill upon patientrequest if the prescription is for a schedule II op... Start Date: 10/16/22 Status: Ordered Lantus Solostar Pen 100 units/mL subcutaneous solution See Instructions, Subcutaneous Injection, 30 units sc bid dx E11.9 dose increased 01/23/23, # 15 mL,11 Refills, Maintenance, 01/23/23 9:43:00 EDT, [facility]/pharmacy #[id number], Partial fill upon patient request if the prescription is for a schedule II opioid d... Start Date: 01/23/23 Stop Date: 01/18/24 Status: Ordered lisinopril 10 mg oral tablet 10 mg, 1, tablet, By Mouth, Daily, # 90 tablet, Refills 2, Tot. Refills 2, Maintenance, 01/23/23 10:15:00 EDT, Route to Pharmacy Electronically, [facility]/pharmacy #[id number], Partial fill upon patient request [...] EST Start Date: 01/11/22 Status: Ordered Pen [place], 31 G x 5 mm BD Ultra [...] Active Morbid obesity Confirmed Active BHN/CCA/CP- [facility] [phone] nursing home active care coordination Confirmed Active Peripheral vascular disease - right SFA angioplasty/right great toe amputation 2021 Confirmed Active Severe obesity Confirmed Active Umbilical hernia Confirmed Active 1per 2016 and 2018 [facility] notes Social History Social History Type Response Smoking Status Never (less than 100 in lifetime) entered on: 09/03/19 Sex 1per pt Patient Care team information Care Team Personnel Name: Allegra Aguayo MD Position: [facility] Resident Member Role: PCP Address: Address: [address] [place] [id number] Name: Baljit Martínez RN Position: [...] Name: MIKEY SEAY Address: home [address] [address] Name: MIKEY AYALA Address: [address] [place] [address] Name: TANIA COPPOLA Address: home [address] [place] [address] Name: TANIA MUÑIZ Address: home [address] [place] [address]
--- OUTSIDE RECORDS SUMMARY | 2023-02-20 15:21 | XMS_ITS | Continuity of Care Document ---
Author Name Unknown Organization [facility] Address [address] [place] [address]- Care Team Providers Care High School Social Studies Teacher Name Role Phone Olivier MOSHER, Allegra Primary Care Physician Encounter [facility] ACCT [facility] [id number] Date(s): 05/01/22 - 07/07/22 [facility] [address] [place], [place] [address] Attending Physician: Victor Hugo MOSHER, Aditi Kilgore Admitting Physician: Victor Hugo MOSHER, Aditi Kilgore Allergies, Adverse Reactions, Alerts Substance Reaction Severity Status ibuprofen ABD PAIN Active morphine Vomiting and itchy Active traMADol Itchy, Hives Active Immunizations Given and Recorded Vaccine Date Status Refusal Reason SARS-CoV-2 mRNA (acpaxhk-qsxo-jndmb) vax 02/22/22 Recorded SARS-CoV-2 (COVID-19) mRNA BNT-162b2 [...] Note: VIS GIVEN-DATED 05/30/11 2Result Comment: LOT [id number] EXP 04 MAY 2010 3Admin Note: VIS [...] 04/24/22 9:05:00 EDT, Route to Pharmacy Electronically, [facility], Partial fill upon patient request if the prescription is for a schedule II opio... Start Date: 04/24/22 Status: Ordered ammonium lactate 5% topical lotion 1 application, Topically, 2 times a day, # 240 Gm, 0 Refills, Maintenance, 05/01/22 12:34:00 EDT, Lotion, [facility]/pharmacy #[id number], Partial fill upon patient request if the prescription is for a schedule II opioid drug., 1 application Topically 2 times a da... Start Date: 05/01/22 Stop Date: 05/31/22 Status: Ordered aspirin 81 mg oral delayed release tablet 81 mg, By Mouth, Daily, # 30 tablet, Refills 5, Tot. Refills 5, Maintenance, 05/13/22 16:40:00 EDT,Route to Pharmacy Electronically, [facility], Partial fill upon patient request if the prescription is for a schedule II opioid drug.,... Start Date: 05/13/22 Stop Date: 11/09/22 Status: Ordered atorvastatin 40 mg oral tablet 1 tablet = 40 mg, By Mouth, Daily, # 90 tablet, 2 Refills, Maintenance, 04/24/22 9:41:00 EDT, Tablet, [facility], Partial fill upon patient request if the [...] 05/13/22 16:40:00 EDT, Route to Pharmacy Electronically, [facility], Partial fill upon patient request if the prescription is for a schedul... Start Date: 05/13/22 Stop Date: 11/09/22 Status: Ordered Colace sodium 100 mg oral capsule 100 mg, 1, capsule, By Mouth, 2 times a day, PRN, # 60 capsule, Refills 0, Tot. Refills 0, Maintenance, for constipation, 03/16/22 14:30:00 EDT, Route to Pharmacy Electronically, [facility], Partial fill upon patient request if the [...] 07/07/22 15:52:00 EDT, Route to Pharmacy Electronically, [facility], Partial fill upon patient request if the prescription is for a schedule II opi... Start Date: 07/07/22 Status: Ordered insulin aspart 100 units/mL subcutaneous solution = 20 units, Subcutaneous Injection, 3 times a day before meals, # 10 mL, 11 Refills, Maintenance, 03/10/22 9:06:00 EDT, [facility][id number], Partial fill upon patient request if theprescription [...] 0 Refills, Maintenance, 06/21/22 14:19:00 EDT, Tablet, [facility], Partial fill upon patient request if the prescription is for a schedule II opioid drug., 169, cm, ... Start Date: 06/21/22 Stop Date: 09/19/22 Status: Ordered Lantus 100 u/ml subcutaneous solution = 30 units, Subcutaneous Injection, 2 times a day, # 10 mL, 5 Refills, Maintenance, 03/10/22 9:05:00 EDT, [facility] #[id number], Partial fill upon patient request if the prescription is for a schedule II opioid drug., 169, cm, 03/09/22... Start Date: 03/10/22 Status: Ordered lisinopril 10 mg oral tablet 10 mg, 1, tablet, By Mouth, Daily, # 90 tablet, Refills 4, Tot. Refills 4, Maintenance, 06/21/22 14:30:00 EDT, Route to Pharmacy Electronically, [facility], Partial fill upon patient request if the [...] 04/24/22 9:03:00 EDT, Route to Pharmacy Electronically, [facility], Partial fill upon patient request if the [...] 0 Refills, Maintenance, 04/18/22 9:51:00 EDT, Aerosol, [facility], Partial fill upon patient request if the [...] 0 Refills, Maintenance, 03/09/22 14:21:00 EDT, Gel, [facility], Partial fill upon patient request if the [...] Refills, Maintenance, 04/24/22 9:43:00 EDT, ER Tablet, [facility], Partial fill upon patient request if the prescription is for a schedule II opioid d... Start Date: 04/24/22 Status: Ordered Ventolin HFA 108 mcg/inh inhalation aerosol with adapter 2 puffs, Inhalation, Every 6 hours, PRN Wheezing/Shortness of Breath, # 8 Gm, 1 Refills, Maintenance, 05/30/22 10:56:00 EDT, [facility], Partial fill upon patient request if the [...] Active Obese class II(Confirmed) Active BHN/CCA/AUDRA-Mignon Peters [phone]/Health assisted active care coordination(Confirmed) Active Peripheral vascular disease(Confirmed) Active Umbilical hernia(Confirmed) Active 1per 2017 and 2019 [facility] notes Social History Social History Type Response Smoking Status Never (less than 100 in lifetime) entered on: 09/03/19 Sex 1per pt Care Team Personnel Name: Allegra Aguayo MD Address: [address] [place] [address]
--- OUTSIDE RECORDS SUMMARY | 2023-02-20 15:21 | XMS_ITS | Continuity of Care Document ---
Author Name Unknown Organization [facility] Address [address] [place] [address]- Care Team Providers Care Wheel Filler Name Role Phone Allegra Aguayo MD Primary Care Physician [phone] [place] [facility] [place] 10[place]/22 [facility] [address], [place] [address] Attending Physician: Not on Staff, Attending MD Allergies, Adverse Reactions, Alerts Substance Reaction Severity Status ibuprofen ABD PAIN Active morphine Vomiting and itchy Active traMADol Itchy, Hives Active Immunizations Given and Recorded Vaccine Date Status Refusal Reason SARS-CoV-2 mRNA ([id number]) vax 02/22/22 Recorded SARS-CoV-2 (COVID-19) mRNA BNT-162b2 [...] Note: VIS GIVEN-DATED 05/30/11 2Result Comment: LOT [id number] EXP 04 MAY 2010 3Admin Note: VIS [...] 04/24/22 9:05:00 EDT, Route to Pharmacy Electronically, [facility], Partial fill upon patient request if the prescription is for a schedule II opio... Start Date: 04/24/22 Status: Ordered ammonium lactate 5% topical lotion 1 application, Topically, 2 times a day, # 240 Gm, 0 Refills, Maintenance, 05/01/22 12:34:00 EDT, Lotion, [facility]/pharmacy #[id number], Partial fill upon patient request if the prescription is for a schedule II opioid drug., 1 application Topically 2 times a da... Start Date: 05/01/22 Stop Date: 05/31/22 Status: Ordered aspirin 81 mg oral delayed release tablet 81 mg, By Mouth, Daily, # 30 tablet, Refills 5, Tot. Refills 5, Maintenance, 05/13/22 16:40:00 EDT,Route to Pharmacy Electronically, [facility], Partial fill upon patient request if the prescription is for a schedule II opioid drug.,... Start Date: 05/13/22 Stop Date: 11/09/22 Status: Ordered atorvastatin 40 mg oral tablet 1 tablet = 40 mg, By Mouth, Daily, # 90 tablet, 2 Refills, Maintenance, 04/24/22 9:41:00 EDT, Tablet, [facility], Partial fill upon patient request [...] 03/16/22 14:30:00 EDT, Route to Pharmacy Electronically, [facility], Partial fill upon patient request [...] Maintenance, 09/21/22 11:57:00 EST, Tablet, [facility]/pharmacy #[id number], Partial fill upon patient request if the [...] 10/16/22 10:25:00 EST, Route to Pharmacy Electronically, [facility] #[id number], Partial fill upon patientrequest if the prescription [...] tablet, 0 Refills, Maintenance, 09/20/22 11:28:00EST, Tablet, [facility]/pharmacy #[id number], Partial fill upon patient request if the prescription is for a schedule II opioid drug., 169, cm, 09/20/22 9:22:00 EST... Start Date: 09/20/22 Stop Date: 10/04/22 Status: Ordered lisinopril 10 mg oral tablet 10 mg, 1, tablet, By Mouth, Daily, # 90 tablet, Refills 1, Tot. Refills 1, Maintenance, 10/16/22 10:24:00 EST, Route to Pharmacy Electronically, [facility] #[id number], Partial fill upon patientrequest if the prescription is for a schedule II op... Start Date: 10/16/22 Stop Date: 04/14/23 Status: Ordered NovoLOG FlexPen 100 units/mL injectable solution = 20 units, Subcutaneous Injection, 3 times a day before meals, INJECT 20 UNITS INTO SKIN THREE TIMES DAILY BEFORE A MEAL, # 15 mL, 10 Refills, Maintenance, 08/01/22 16:09:00 EDT, [facility]., 169, cm, 08/01/22 14:14:00 EDT, [...] Acute 10/24/22 15:48:00 EST, 10/10/22 15:48:00 EST, [facility]/pharmacy #[id number], Partial fill upon patient [...] 04/24/22 9:03:00 EDT, Route to Pharmacy Electronically, [facility], Partial fill upon patient request if the prescription is for a schedule II opio... Start Date: 04/24/22 Status: Ordered ProAir HFA 90 mcg/inh inhalation aerosol 1 puffs, Inhalation, Every 4 hours, PRN as needed for wheezing, # 18 Gm, 0 Refills, Maintenance, 10/03/22 6:38:00 EST, Aerosol, [facility] #[id number], Partial fill upon patient request if the [...] 05/30/22 10:56:00 EDT, [facility], Partial fill upon patient request [...] Obese class II Confirmed Active BHN/CCA/CP- Angle [phone] half-way active care coordination Confirmed Active Peripheral vascular disease - right SFA angioplasty/right great toe amputation 2021 Confirmed Active Umbilical hernia Confirmed Active 1per 2016 and 2018 [facility] notes Social History Social History Type Response Smoking Status Never (less than 100 in lifetime) entered on: 09/03/19 Sex 1per pt Patient Care team information Care Team Personnel Name: Allegra Aguayo MD Position: [facility] Resident Member Role: PCP Address: Address: [address] [place] [address] Name: Vera Locke RN Position: [facility] RN Member Role: Primary Care Nurse Name: Baljit Martínez RN Position: [facility] RN Member Role: Primary Care Nurse Name: Sabine Guthrie RN Position: S RN Member Role: Primary Care Nurse Name: Aditi Hernandez RN Position: [facility] RN Member Role: Primary Care Nurse Name: Piyush Moore RN Position: [facility] RN Member Role: Primary Care Nurse Name: Mis Vences RN Position: [facility] RN Member Role: Primary Care Nurse Name: Angie Lopez RN Position: [facility] RN Member Role: Primary Care Nurse Name: Lizzie Estrada RN Position: [facility] RN Member Role: Primary Care Nurse Care Team Related Persons Name: MIKEY SEAY Address: home [address] [address] Name: MIKEY AYALA Address: home [address] [place] [address] Name: TANIA COPPOLA Address: home [address] [place] [id number] Name: TANIA MUÑIZ Address: home [address] [place] [address] [place] [address]
--- OUTSIDE RECORDS SUMMARY | 2023-02-20 15:21 | XMS_ITS | Continuity of Care Document ---
Author Name Unknown Organization [facility] Address [address] [place] [address]- Care Team Providers Care Personal Clothing Laundry Aide Name Role Phone Josef MOSHER, Mamie Patterson Primary Care Physician [phone] [place] [facility] [id number] Date(s): 03/06/22 - 04/05/[address] [address]- Attending Physician: Satish Whittington Admitting Physician: AdmSatish mitchell Referring Physician: Admtr, Satish Allergies, Adverse Reactions, Alerts Substance Reaction Severity Status ibuprofen ABD PAIN Active morphine Vomiting and itchy Active traMADol Itchy, Hives Active Immunizations Given and Recorded Vaccine Date Status Refusal Reason SARS-CoV-2 mRNA ([id number]) vax 02/22/22 Recorded SARS-CoV-2 (COVID-19) mRNA BNT-162b2 [...] Note: VIS GIVEN-DATED 05/30/11 2Result Comment: LOT [id number] EXP 04 MAY 2010 3Admin Note: VIS [...] 03/10/22 9:04:00 EDT, Route to Pharmacy Electronically, [facility] #[id number], Partial fill upon patient request if the prescription is for a schedule II opi... Start Date: 03/10/22 Status: Ordered atorvastatin 10 mg oral tablet 1 tablet, By Mouth, Daily, # 90 tablet, 1 Refills, Maintenance, 12/13/21 19:21:00 EST, [facility] #[id number], 170, cm, 07/28/21 10:50:00 EDT, Height Start [...] EDT, Route to Pharmacy Electronically, [facility], Partial fill upon patient request if [...] 0 Refills, Maintenance, 03/16/22 14:35:00 EDT, Capsule, [facility], Partial fill upon patient request if the prescription is for a schedule II opioid drug., 169, cm, 03/16/22 14:07:00... Start Date: 03/16/22 Status: Ordered insulin aspart 100 units/mL subcutaneous solution = 20 units, Subcutaneous Injection, 3 times a day before meals, # 10 mL, 11 Refills, Maintenance, 03/10/22 9:06:00 EDT, Solution, [facility] #[id number], Partial fill upon patient request if theprescription [...] tablet, 11 Refills, Maintenance, 03/09/22 14:23:00 EDT, [facility], 169, cm, 03/09/22 13:46:00 EDT, Height, 104.9, kg, 03/04/22 2:58:00 EDT, Dry Weight Start Date: 03/09/22 Status: Ordered Lantus 100 u/ml subcutaneous solution = 30 units, Subcutaneous Injection, 2 times a day, # 10 mL, 5 Refills, Maintenance, 03/10/22 9:05:00 EDT, Solution, [facility] #[id number], Partial fill upon patient request if the prescription is for a schedule II opioid drug., 169, cm, 03/09/22... Start Date: 03/10/22 Status: Ordered lisinopril 40 mg oral tablet 1 tablet = 40 mg, By Mouth, Daily, # 30 tablet, 5 Refills, Maintenance, 03/10/22 9:03:00 EDT, Tablet, [facility] #[id number], Partial fill upon patient request if the [...] 2 mL, 11 Refills, 03/09/22 14:22:00 EDT, [facility] 169, cm, 03/09/22 13:46:00 EDT, Height, 104.9, kg, 03/04/22 2:58:00 EDT, Dry Weight Start Date: 03/09/22 Status: Ordered Tylenol Extra Strength 500 mg oral tablet 2 tablet = 1,000 mg, By Mouth, Every 6 hours, prn pain, # 100 tablet, 0 Refills, Maintenance, 03/16/22 14:30:00 EDT[facility] fill upon patient request if the prescription is for a schedule II opioid drug., 169, cm, 03/16/22... Start Date: 03/16/22 Status: Ordered Ventolin HFA 108 mcg/inh inhalation aerosol with adapter 1 puffs, Inhalation, 4 times a day, PRN NEEDED FOR WHEEZING, # 18 Gm, 0 Refills, [facility] #[id number], 170, cm, 01/11/22 9:39:00 EST, Height Start [...] Active Obese class II(Confirmed) Active BHN/CCA/AUDRA-Mignon Peters [phone]/Health retirement active care coordination(Confirmed) Active Peripheral vascular disease(Confirmed) Active Uncontrolled type 1 diabetes mellitus with hyperglycemia, with long-term current use of insulin(Confirmed) Active Umbilical hernia(Confirmed) Active 1per 2016 and 2018 [facility] notes Social History Social History Type Response Smoking Status Never (less than 100 in lifetime) entered on: 09/03/19 Sex 1per pt
--- OUTSIDE RECORDS SUMMARY | 2023-02-20 15:21 | XMS_ITS | Continuity of Care Document ---
Author Name Unknown Organization [facility] Address [address] [place] [address]- Care Team Providers Care Pastor Name Role Phone Mamie Bahena MD Primary Care Physician Encounter [facility] [place] [id number] Date(s): 04/10/22 - 05/10/[address] [address] Attending Physician: Admtr, Satish Admitting Physician: Admtr, Ar8 Referring Physician: Admtr, Ar8 Allergies, Adverse Reactions, Alerts Substance Reaction Severity Status ibuprofen ABD PAIN Active morphine Vomiting and itchy Active traMADol Itchy, Hives Active Immunizations Given and Recorded Vaccine Date Status Refusal Reason SARS-CoV-2 mRNA ([id number]) vax 02/22/22 Recorded SARS-CoV-2 (COVID-19) mRNA BNT-162b2 [...] Note: VIS GIVEN-DATED 05/30/11 2Result Comment: LOT [id number] EXP 04 MAY 2010 3Admin Note: VIS [...] Gm, 0 Refills, Maintenance, 05/01/22 12:34:00 EDT, [place], [facility]/pharmacy #[id number], Partial fill upon [...] 04/13/22 16:40:00 EDT, Route to Pharmacy Electronically, [facility], Partial fill upon patient [...] 04/13/22 16:40:00 EDT, Route to Pharmacy Electronically, [facility], Partial fill upon patient request if th... Start Date: 04/13/22 Stop Date: 05/13/22 Status: Ordered Colace sodium 100 mg oral capsule 100 mg, 1, capsule, By Mouth, 2 times a day, PRN, # 60 capsule, Refills 0, Tot. Refills 0, Maintenance, for constipation, 03/16/22 14:30:00 EDT, Route to Pharmacy Electronically, [facility], Partial fill upon patient [...] 05/11/22 8:04:00 EDT, 04/27/22 8:04:00 EDT, Capsule, [facility], Partial fill upon patient request if [...] mL, 11 Refills, Maintenance, 03/10/22 9:06:00 EDT, [facility] #[id number], Partial fill upon patient request if theprescription [...] mL, 5 Refills, Maintenance, 03/10/22 9:05:00 EDT, [facility] #[id number], Partial fill upon patient request if the prescription is for a schedule II opioid drug., 169, cm, 03/09/22... Start Date: 03/10/22 Status: Ordered lisinopril 10 mg oral tablet 10 mg, 1, tablet, By Mouth, Daily, # 30 tablet, Refills 4, Tot. Refills 4, Maintenance, 04/24/22 9:41:00 EDT, Route to Pharmacy Electronically, [facility], [...] 04/24/22 13:25:00 EDT, Route to Pharmacy Electronically, [facility]/pharmacy #[id number], Partial fill upon patient request if t... Start Date: 04/24/22 Stop Date: 05/24/22 Status: Ordered oxyCODONE 5 mg oral tablet 5 mg, 1, tablet, By Mouth, Every 6 hours, PRN, for 7 days, # 28 tablet, Refills 0, Tot. Refills 0, Acute 05/31/22 10:39:00 EDT, as needed for pain, 05/24/22 10:39:00 EDT, Route to Pharmacy Electronically, [facility]/pharmacy #[id number], Partial fill upon [...] 2 mL, 11 Refills, 03/09/22 14:22:00 EDT, [facility]., 169, cm, 03/09/22 13:46:00 EDT, Height, [...] Active Obese class I(Confirmed) Active BHN/CCA/AUDRA-Mignon Peters [phone]/Health nursing home active care coordination(Confirmed) Active Peripheral vascular disease(Confirmed) Active Uncontrolled type 1 diabetes mellitus with hyperglycemia, with long-term current use of insulin(Confirmed) Active Umbilical hernia(Confirmed) Active 1per 2016 and 2018 [facility] notes Social History Social History Type Response Smoking Status Never (less than 100 in lifetime) entered on: 09/03/19 Sex 1per pt
--- OUTSIDE RECORDS SUMMARY | 2023-02-20 15:22 | XMS_ITS | Continuity of Care Document ---
Author Name Unknown Organization [facility] Address [address] [place] [address]- Care Team Providers Care Community Arts Worker Name Role Phone Olivier MOSHER, Allegra Primary Care Physician Encounter [facility] [place] Date(s): 07/20/22 - 08/19/22 [facility] [address] [place], [place] [address] Allergies, Adverse Reactions, Alerts Substance Reaction Severity Status ibuprofen ABD PAIN Active morphine Vomiting and itchy Active traMADol Itchy, Hives Active Immunizations Given and Recorded Vaccine Date Status Refusal Reason SARS-CoV-2 mRNA ([id number]) vax 02/22/22 Recorded SARS-CoV-2 (COVID-19) mRNA BNT-162b2 [...] Note: VIS GIVEN-DATED 05/30/11 2Result Comment: LOT [id number] EXP 04 MAY 2010 3Admin Note: VIS [...] 04/24/22 9:05:00 EDT, Route to Pharmacy Electronically, [facility], Partial fill upon patient request if the prescription is for a schedule II opio... Start Date: 04/24/22 Status: Ordered ammonium lactate 5% topical lotion 1 application, Topically, 2 times a day, # 240 Gm, 0 Refills, Maintenance, 05/01/22 12:34:00 EDT, Lotion, [facility]/pharmacy #[id number], Partial fill upon patient request if the prescription is for a schedule II opioid drug., 1 application Topically 2 times a da... Start Date: 05/01/22 Stop Date: 05/31/22 Status: Ordered aspirin 81 mg oral delayed release tablet 81 mg, By Mouth, Daily, # 30 tablet, Refills 5, Tot. Refills 5, Maintenance, 05/13/22 16:40:00 EDT,Route to Pharmacy Electronically, [facility], Partial fill upon patient request if the prescription is for a schedule II opioid drug.,... Start Date: 05/13/22 Stop Date: 11/09/22 Status: Ordered atorvastatin 40 mg oral tablet 1 tablet = 40 mg, By Mouth, Daily, # 90 tablet, 2 Refills, Maintenance, 04/24/22 9:41:00 EDT, Tablet, [facility]., Partial fill upon patient request [...] 16:13:00 EDT, [id number] fill upon patient request if the prescription is for a schedule II opi... Start Date: 07/26/22 Stop Date: 01/22/23 Status: Ordered Colace sodium 100 mg oral capsule 100 mg, 1, capsule, By Mouth, 2 times a day, PRN, # 60 capsule, Refills 0, Tot. Refills 0, Maintenance, for constipation, 03/16/22 14:30:00 EDT, Route to Pharmacy Electronically, [facility], Partial fill upon patient request if [...] 07/07/22 15:52:00 EDT, Route to Pharmacy Electronically, [facility], Partial fill upon patient request if [...] 6 Refills, Soft Stop, 08/01/22 16:09:00EDT, Solution, [facility], Partial fill upon patient request if the prescription isfor a schedule II opioid drug., 169, cm, 08/01/22 1... Start Date: 08/01/22 Stop Date: 04/22/24 Status: Ordered lisinopril 10 mg oral tablet 10 mg, 1, tablet, By Mouth, Daily, # 90 tablet, Refills 4, Tot. Refills 4, Maintenance, 07/12/22 10:12:00 EDT, Route to Pharmacy Electronically, [facility] #[id number], Partial fill upon patientrequest if the prescription is for a schedule II op... Start Date: 07/12/22 Stop Date: 10/05/23 Status: Ordered NovoLOG FlexPen 100 units/mL injectable solution = 20 units, Subcutaneous Injection, 3 times a day before meals, INJECT 20 UNITS INTO SKIN THREE TIMES DAILY BEFORE A MEAL, # 15 mL, 10 Refills, Maintenance, 08/01/22 16:09:00 EDT, [facility]., 169, cm, 08/01/22 14:14:00 EDT, [...] Acute 08/25/22 8:51:00 EDT, 08/11/22 8:51:00 EDT, [facility]/pharmacy #[id number], Partial fill upon patient [...] 04/24/22 9:03:00 EDT, Route to Pharmacy Electronically, [facility], Partial fill upon patient request if the prescription is for a schedule II opio... Start Date: 04/24/22 Status: Ordered ProAir HFA 90 mcg/inh inhalation aerosol 1 puffs, Inhalation, Every 4 hours, PRN as needed for wheezing, # 18 Gm, 0 Refills, Maintenance, 04/18/22 9:51:00 EDT, Aerosol, [facility], Partial fill upon patient request if [...] 0 Refills, Maintenance, 03/09/22 14:21:00 EDT, Gel, [facility], Partial fill upon patient request if the p... Start Date: 03/09/22 Status: Ordered traZODone 300 mg oral tablet 1 tablet = 300 mg, By Mouth, Daily at bedtime Start Date: 03/03/22 Status: Ordered Trulicity Pen 4.5 mg/0.5 mL subcutaneous solution = 0.5 mL, Subcutaneous Injection, Every week, rotate injection sites, # 6 mL, 4 Refills, Maintenance, 07/19/22 10:42:00 EDT, Solution, [facility] #[id number], Partial fill upon patient request if the prescription is for a schedule II opioid drug.... Start Date: 07/19/22 Status: Ordered Tylenol 8 Hour 650 mg oral tablet, extended release 2 tablet = 1,300 mg, By Mouth, Every 8 hours, PRN as needed for pain, # 24 tablet, 0 Refills, Maintenance, 04/24/22 9:43:00 EDT, ER Tablet, [facility]., Partial fill upon patient request if the prescription is for a schedule II opioid d... Start Date: 04/24/22 Status: Ordered Ventolin HFA 108 mcg/inh inhalation aerosol with adapter 2 puffs, Inhalation, Every 6 hours, PRN Wheezing/Shortness of Breath, # 8 Gm, 1 Refills, Maintenance, 05/30/22 10:56:00 EDT, [facility], Partial fill upon patient request if [...] Obese class II Confirmed Active BHN/CCA/CP- Angle [phone] [facility] active care coordination Confirmed Active Peripheral vascular disease Confirmed Active Umbilical hernia Confirmed Active 1per 2016 and 2018 [facility] notes Social History Social History Type Response Smoking Status Never (less than 100 in lifetime) entered on: 09/03/19 Sex 1per pt Patient Care team information Personnel Name: Allegra Aguayo MD Address: Address: [address] [place] [address] [place], [place] [address]
--- OUTSIDE RECORDS SUMMARY | 2023-02-20 15:22 | XMS_ITS | Continuity of Care Document ---
Author Name Unknown Organization [facility] Address [address] [place] [address]- Care Team Providers Care Rodent Control Worker Name Role Phone Josef MOSHER, Mamie Patterson Primary Care Physician Encounter [facility] Date(s): 11/17/21 - 12/17/21 [facility] [address], [place] [address] Attending Physician: Admtr, Ar8 Allergies, Adverse Reactions, [...] Note: VIS GIVEN-DATED 05/30/11 2Result Comment: LOT [id number] EXP 04 MAY 2010 3Admin Note: VIS given Medications Accu-Chek Erika Glucose Meter See Instructions, # 1 each, Maintenance, use to check bs 4 times daily dx E11.9, 07/21/21 11:27:00 EDT, Supply, 170, cm, 07/20/21 8:57:00 EDT, Height Start Date: 07/21/21 Status: Ordered Accu-Chek Reika Plus Test Strips See Instructions, # 150 [...] 07/20/21 9:24:00 EDT, Route to Pharmacy Electronically, [facility] #[id number], 170, cm, 07/20/21 8:57:00 EDT, Height Start Date: 07/20/21 Stop Date: 10/13/22 Status: Ordered atorvastatin 10 mg oral tablet 1 tablet, By Mouth, Daily, # 90 tablet, 1 Refills, Maintenance, 12/13/21 19:21:00 EST, [facility] #[id number], 170, cm, 07/28/21 10:50:00 EDT, Height Start [...] 07/20/21 9:33:00 EDT, Route to Pharmacy Electronically, [facility] #[id number], Partial fill upon patient request if the prescription is for a schedule II opi... Start Date: 07/20/21 Stop Date: 10/18/21 Status: Ordered insulin aspart 100 units/mL subcutaneous solution = 20 units, Subcutaneous Injection, 3 times a day before meals, 90 day supply as requested, # 30 mL, 0 Refills, Maintenance, 12/16/21 12:02:00 EST, Solution, [facility] #[id number], Partial fillupon patient request if the prescription [...] tablet, 11 Refills, Maintenance, 10/24/21 9:05:00 EST, [facility], 170, cm, 07/28/21 10:50:00 EDT, Height Start Date: 10/24/21 Status: Ordered Januvia 50 mg oral tablet 1 tablet = 50 mg, By Mouth, Daily, dose decreased, # 30 tablet, 11 Refills, Maintenance, 09/20/21 13:40:00 EST, Tablet, [facility] #[id number], Partial fill upon patient request if the prescription is for a schedule II opioid drug., 170, cm, 09/2... Start Date: 09/20/21 Status: Ordered lisinopril 40 mg oral tablet 1 tablet = 40 mg, By Mouth, Daily, # 90 tablet, 4 Refills, Maintenance, 07/20/21 9:25:00 EDT, Tablet, [facility] #[id number], 170, cm, 07/20/21 8:57:00 EDT, Height Start Date: 07/20/21 Stop Date: 10/13/22 Status: Ordered Melatonin 5 mg oral tablet 0 Refills, Maintenance, 01/29/19 10:09:09 EDT Start Date: 01/29/19 Status: Ordered OXcarbazepine 300 mg oral tablet TK 1 T PO BID Start Date: 01/29/19 Status: Ordered PARoxetine 40 mg oral tablet TK 1 T PO HS Start Date: 01/29/19 Status: Ordered Pen [place], 31 G x 5 mm BD Ultra Fine III See Instructions, # 300 each, Refills 4, Tot. Refills 4, Maintenance, Use for injection of insulin up to 5 times daily. For type 2 diabetes mellitus., 09/28/22 13:05:00 EST, if possible please give box rather than bag as patient has difficulty when pe... Start Date: 09/28/22 Stop Date: 12/22/23 Status: Ordered Pen Cleveland, 31 G x 5 mm BD Ultra Fine III See Instructions, # 150 each, Refills 11, Tot. Refills 11, Maintenance, use to inject insulin up tofive times daily dx e11.9, 10/21/20 15:55:00 EST, Supply, 170, cm, 05/20/20 14:48:00 EDT, Height, 100.5, kg, 05/30/19 9:39:00 EDT, Dry Weight Start Date: 10/21/20 Status: Ordered Pen Cleveland, 31 G x 5 mm BD Ultra [...] FOR 14 DAYS, # 15 Gm, 0 Refills,[facility] #[id number], 14, APPLY TOPICALLY TO THE AFFECTED AREA TWICE DAILY FOR 14 DAYS, 170,cm, 07/28/21 10:50:00 EDT, Height Start Date: 11/02/21 Status: Ordered Trulicity Pen 3 mg/0.5 mL subcutaneous solution 0.5 mL = 3 mg, Subcutaneous Injection, Every week, rotate injection sites, # 2 mL, 0 Refills, Maintenance, 11/30/21 14:02:00 EST, Solution, [facility] #[id number], Partial fill upon patient request if the prescription is for a schedule II opioid... Start Date: 11/30/21 Status: Ordered Ventolin HFA 108 mcg/inh inhalation aerosol with adapter 1 puffs, Inhalation, 4 times a day, PRN for wheezing, # 8 Gm, 2 Refills, Maintenance, 09/22/21 11:41:00 EST, Aerosol, [facility] #[id number], Partial fill upon patient request if the [...] Microalbuminuria(Confirmed) Active Morbid obesity(Confirmed) Active BHN/CCA/AUDRA-Mignon Peters [phone]/Health retirement active care coordination(Confirmed) Active Peripheral vascular disease(Confirmed) Active Umbilical hernia(Confirmed) Active 1per 2017 and 2019 [facility] notes Social History Social History Type Response Smoking Status Never (less than 100 in lifetime) entered on: 09/03/19 Sex Female 1per pt
--- OUTSIDE RECORDS SUMMARY | 2023-02-20 15:22 | XMS_ITS | Continuity of Care Document ---
Author Name Unknown Organization [facility] ter Address [address] [place] [address]- Care Team Providers Care Project Management Manager Name Role Phone Josef MOSHER, Mamie Patterson Primary Care Physician Encounter [facility] Date(s): 03/28/22 - 04/06/[address] [address] Discharge Disposition: A-D/C Home Attending Physician: Randy Jo DO Admitting Physician: Jing Tee MD Referring Physician: Not on Staff, Referring MD Allergies, Adverse Reactions, Alerts Substance Reaction Severity Status ibuprofen ABD PAIN Active morphine Vomiting and itchy Active traMADol Itchy, Hives Active Immunizations Given and Recorded Vaccine Date Status Refusal Reason SARS-CoV-2 mRNA ([id number]) vax 02/22/22 Recorded SARS-CoV-2 (COVID-19) mRNA BNT-162b2 [...] Note: VIS GIVEN-DATED 05/30/11 2Result Comment: LOT [id number] EXP 04 MAY 2010 3Admin Note: VIS [...] oral tablet 10 mg, Tablet, By Mouth, Hold for: SBP LESS THAN 100, 04/06/22 9:00:00 EDT Start Date: 04/06/22 Stop Date: 04/06/22 Status: Completed amLODIPine 10 mg oral tablet 10 mg, 1, tablet, By Mouth, Daily, # 30 tablet, Refills 5, Tot. Refills 5, Maintenance, 03/10/22 9:04:00 EDT, Route to Pharmacy Electronically, [facility] #[id number], Partial fill upon patient request if the prescription is for a schedule II opi... Start Date: 03/10/22 Status: Ordered atorvastatin 10 mg oral tablet 1 tablet, By Mouth, Daily, # 90 tablet, 1 Refills, Maintenance, 12/13/21 19:21:00 EST, [facility] #[id number], 170, cm, 07/28/21 10:50:00 EDT, Height Start Date: 12/13/21 Status: Ordered Augmentin 875 mg-125 mg oral tablet 1 tablet, By Mouth, 2 times a day, # 11 tablet, 0 Refills, Acute 04/11/22 22:00:00 EDT, 04/06/22 14:52:00 EDT, [facility], Partial fill upon patient [...] 03/16/22 14:30:00 EDT, [facility] Partial fill upon patient request if the pre... Start Date: 03/16/22 Status: Ordered Darco front offloading shoe Darco front offloading shoe, See Instructions, # 1 each, Refills 0, Tot. Refills 0, Maintenance, dx: dfu, 03/14/22 10:48:00 EDT, Compound Start Date: 03/14/22 Status: Ordered Dilaudid Inj 1.5 mg, Injection, IV Push Slowly, Every 4 hours, PRN for Pain , Severe, Routine, 03/30/22 11:19:00EDT Start Date: 03/30/22 Stop Date: 04/07/22 Status: Discontinued FREESTYLE LITE BLOOD GLUCOSE STRIPS [...] 04/06/22 14:48:00 EDT, Route to Pharmacy Electronically, [facility], Partial fill upon patient request if the prescription is for a schedule II opioi... Start Date: 04/06/22 Status: Ordered insulin aspart 100 units/mL subcutaneous solution = 20 units, Subcutaneous Injection, 3 times a day before meals, # 10 mL, 11 Refills, Maintenance, 03/10/22 9:06:00 EDT, Solution, [facility] #[id number], Partial fill upon patient request if theprescription [...] tablet, 11 Refills, Maintenance, 03/09/22 14:23:00 EDT, [facility], resent - not recvd, 169, cm, 03/09/22 13:46:00 EDT, Height, 104.9, kg, 03/04/22 2:58:00 EDT, Dry Weight Start Date: 03/09/22 Status: Ordered Lantus 100 u/ml subcutaneous solution = 30 units, Subcutaneous Injection, 2 times a day, # 10 mL, 5 Refills, Maintenance, 03/10/22 9:05:00 EDT, Solution, [facility] #[id number], Partial fill upon patient request if the prescription is for a schedule II opioid drug., 169, cm, 03/09/22... Start Date: 03/10/22 Status: Ordered metoprolol 25 mg oral tablet 25 mg, 1, tablet, By Mouth, 2 times a day, # 60 tablet, Refills 0, Tot. Refills 0, Maintenance, 04/06/22 14:48:00 EDT, Route to Pharmacy Electronically, [facility], Partial fill upon patient request if the prescription is for a schedule... Start Date: 04/06/22 Status: Ordered metoprolol 25 mg oral tablet 25 mg, Tablet, By Mouth, Hold for: if SBP < 120 and HR < 60, 04/06/22 9:00:00 EDT Start Date: 04/06/22 Stop Date: 04/06/22 Status: Completed Offloading boot Offloading boot, See Instructions, # [...] 6 hours, PRN as needed for pain, # 12 capsule, 0 Refills, Acute 04/09/22 16:15:00 EDT, 04/06/22 16:06:00 EDT, Capsule, [facility], Partial fill upon patient request if the prescription is for a schedule... Start Date: 04/06/22 Stop Date: 04/09/22 Status: Ordered oxyCODONE 5 mg oral tablet 10 mg, Tablet, By Mouth, Every 4 hours, Hold for: BLOOD SUGARS LESS THAN 90 OR HR LESS THAN 50, PRNfor Pain , Moderate, Routine, 04/06/22 17:05:00 EDT Start Date: 04/06/22 Stop Date: 04/07/22 Status: Discontinued PARoxetine 40 mg oral tablet 40 mg, 1, tablet, By Mouth, Daily, Refills 0, Maintenance, 01/11/22 9:43:00 EST Start Date: 01/11/22 Status: Ordered Plavix 75 mg oral tablet 75 mg, 1, tablet, By Mouth, Daily, # 30 tablet, Refills 0, Tot. Refills 0, Maintenance, 04/06/22 14:47:00 EDT, Route to Pharmacy Electronically, [facility] 3, Partial fill upon patient [...] 0 Refills, Maintenance, 03/09/22 14:21:00 EDT, Gel, [facility], Partial fill upon patient request if the p... Start Date: 03/09/22 Status: Ordered traZODone 300 mg oral tablet 1 tablet = 300 mg, By Mouth, Daily at bedtime Start Date: 03/03/22 Status: Ordered Trulicity Pen 3 mg/0.5 mL subcutaneous solution See Instructions, ADMINISTER 0.5 ML UNDER THE SKIN EVERY WEEK. ROTATE INJECTION SITES, # 2 mL, 11 Refills, 03/09/22 14:22:00 EDT, [facility], 169, cm, 03/09/22 13:46:00 EDT, Height, 104.9, kg, 03/04/22 2:58:00 EDT, Dry Weight Start Date: 03/09/22 Status: Ordered Tylenol Extra Strength 500 mg oral tablet 2 tablet = 1,000 mg, By Mouth, Every 6 hours, prn pain, # 100 tablet, 0 Refills, Maintenance, 03/16/22 14:30:00 EDT, [facility], Partial fill upon patient request if the prescription is for a schedule II opioid drug., 169, cm, 03/16/22... Start Date: 03/16/22 Status: Ordered Ventolin HFA 108 mcg/inh inhalation aerosol with adapter 1 puffs, Inhalation, 4 times a day, PRN NEEDED FOR WHEEZING, # 18 Gm, 0 Refills, [facility] #[id number], 170, cm, 01/11/22 9:39:00 EST, Height Start [...] Active Obese class II(Confirmed) Active BHN/CCA/AUDRA-Mignon Peters [phone]/Health long-term active care coordination(Confirmed) Active Peripheral vascular disease(Confirmed) Active Uncontrolled type 1 diabetes mellitus with hyperglycemia, with long-term current use of insulin(Confirmed) Active Umbilical hernia(Confirmed) Active 1per 2016 and 2018 [facility] notes Results Orders for Microbiology Reports Name Date Anaerobic Culture (ANAEROBIC CULTURE) Fungal Culture, Nonrespiratory (FUNGAL C ULT,NON-RESPIRATORY) 04/04/22 Tissue Culture w/ Gram Smear (TISSUE/BIO PSY CULT.) 04/04/22 Urine Culture 04/03/22 Blood Culture 03/28/22 Blood Culture #2 03/28/22 Microbiology Reports TEST:Anaerobic Culture STATUS:Auth (Verified) BODY SITE: SOURCE:TISSUE1 COLLECTED DATE/TIME:04/04/22 9:34 AM Anaerobic Culture SPECIMEN DESCRIPTION : TISSUE R GREAT TOE SPECIAL REQUESTS : NONE CULTURE : NO ANAEROBES ISOLATED REPORT STATUS : FINAL 04/06/2022 TEST:Tissue/Biopsy Culture STATUS:Auth (Verified) BODY SITE: SOURCE:TISSUE1 COLLECTED DATE/TIME:04/04/22 9:34 AM Tissue/Biopsy Culture SPECIMEN DESCRIPTION : TISSUE R GREAT TOE SPECIAL REQUESTS : NONE GRAM STAIN : 2+ SQ.EPITHELIAL CELLS 1+ POLYMORPHONUCLEAR LEUKOCYTES NO ORGANISMS SEEN CULTURE : 1+ STAPHYLOCOCCUS AUREUS. 1+ GROUP B BETA HEMOLYTIC STREPTOCOCCI ISOLATED. SUSCEPTIBILITY TESTING NOT ROUTINELY PERFORMED ON THIS ISOLATE. 2+ ENTEROCOCCUS FAECALIS REPORT STATUS : FINAL 04/06/2022 ORGANISM 1+ STAPHYLOCOCCUS AUREUS. METHOD MIN. INHIB. CONC. (MCG/ML) CIPROFLOXACIN SUSCEPTIBLE CLINDAMYCIN SUSCEPTIBLE ERYTHROMYCIN SUSCEPTIBLE LEVOFLOXACIN SUSCEPTIBLE OXACILLIN SUSCEPTIBLE PENICILLIN RESISTANT RIFAMPIN SUSCEPTIBLE RIFAMPIN RIFAMPIN SHOULD NOT BE USED ALONE FOR ANTIMICROBIAL RIFAMPIN THERAPY. TETRACYCLINE SUSCEPTIBLE TRIMETH/SULFAMETHOX SUSCEPTIBLE VANCOMYCIN SUSCEPTIBLE ORGANISM 2+ ENTEROCOCCUS FAECALIS METHOD MIN. INHIB. CONC. (MCG/ML) AMPICILLIN SUSCEPTIBLE VANCOMYCIN SUSCEPTIBLE GENTAMICIN SYNERGY NOT ACTIVE IN SYNERGY STREPTOMYCIN SYNERGY ACTIVE IN SYNERGY TEST:Fungal Culture, Non-Respiratory STATUS:Unauthenticated BODY SITE: SOURCE:TISSUE1 COLLECTED DATE/TIME:04/04/22 9:34 AM Fungal Culture, Non-Respiratory SPECIMEN DESCRIPTION : TISSUE R GREAT TOE SPECIAL REQUESTS : NONE DIRECT EXAM : NO FUNGAL ELEMENTS OBSERVED CULTURE : NO FUNGI ISOLATED AFTER 2 DAYS REPORT STATUS : PRELIMINARY REPORT TEST:Urine Culture STATUS:Auth (Verified) BODY SITE: SOURCE:URINE COLLECTED DATE/TIME:04/03/22 12:30 PM Urine Culture SPECIMEN DESCRIPTION : URINE CLEAN CATCH/MIDSTREAM SPECIAL REQUESTS : NONE CULTURE : NO GROWTH REPORT STATUS : FINAL 04/04/2022 TEST:Blood Culture STATUS:Auth (Verified) BODY SITE: SOURCE:Blood COLLECTED DATE/TIME:03/28/22 3:56 PM Blood Culture SPECIMEN DESCRIPTION : BLOOD R SPECIAL REQUESTS : NONE CULTURE : NO GROWTH 5 DAYS. REPORT STATUS : FINAL 04/02/2022 TEST:Blood Culture, Second Order STATUS:Auth (Verified) BODY SITE: SOURCE:Blood COLLECTED DATE/TIME:03/28/22 3:56 PM Blood Culture, Second Order SPECIMEN DESCRIPTION : BLOOD L SPECIAL REQUESTS : NONE CULTURE : NO GROWTH 5 DAYS. REPORT STATUS : FINAL 04/02/2022 Radiology Reports * Exam Date Time Procedure Performing Provider Status 04/04/22 7:49 PM Chest Portable Caron Freire; Auth (V erified) Notes: (Chest Portable) Reason For Exam: Shortness of Breath RESULT: Chest Portable Chest Portable Reason: Shortness of Breath; Clinical Question(s): Pulmonary Edema COMPARISON: 04/01/2022 FINDINGS: LINES AND TUBES: None. LUNGS AND PLEURA: Pulmonary vasculature is hazy and indistinct with prominent interstitial markings. Small bilateral pleural effusions increased from prior. No pneumothorax. HEART, MEDIASTINUM AND BRYCE: Heart is at the upper limits of normal for size, unchanged. Prominent central vasculature. BONES AND SOFT TISSUES: No acute abnormality. IMPRESSION: Pulmonary edema and small bilateral effusions worsened since prior. WSN: [id number] Ordering Physician: Cally aBi Dictated By: Braydon Garcia MD Dictated Date/Time: 04/04/22 7:56 pm Reviewed By: Braydon Garcia MD Signed By: Braydon Garcia MD Signed Date/Time: 04/04/22 7:56 pm Transcribed By: TY Transcribed Date/Time: 04/04/22 7:55 pm * Exam Date Time Procedure Performing Provider Status 04/01/22 5:28 PM Chest Portable Roseanna Turner; Auth (V erified) Notes: (Chest Portable) Reason For Exam: Cough RESULT: Chest Portable Examination: Portable chest performed on 04/01/2022. History: Cough. Findings: A frontal view of the chest is compared to a prior study dated 07/25/2021. The cardiac silhouette is at the upper limits of normal for size. The lungs are clear. There is a questionable trace right pleural effusion. The osseous structures are unremarkable. Impression: There is no acute cardiopulmonary disease. WSN: [id number] Ordering Physician: Porsha Wooten Dictated By: Chari Dael MD Dictated Date/Time: 04/01/22 5:32 pm Reviewed By: Chari Deal MD Signed By: Chari Deal MD Signed Date/Time: 04/01/22 5:32 pm Transcribed By: TY Transcribed Date/Time: 04/01/22 5:32 pm * Exam Date Time Procedure Performing Provider Status 03/28/22 8:47 PM Foot Min 3 Views Right Daniele Borjas; Auth (Verified) Notes: (Foot Min 3 Views Right) Reason For Exam: Infection RESULT: Foot Min 3 Views Right Foot Min 3 Views Right, 3 views Reason: Infection; Clinical Question(s): Osteomyelitis COMPARISON: 02/28/2022 FINDINGS: Compared to the previous examination, there is now considerable decreased density within the distaltuft of the first digit. The findings are highly suggestive of osteomyelitis. There appears to be soft tissue abnormality at this location. No other findings of osteomyelitis identified. It is not appear to involve the interphalangeal joint. No arthritic changes. Extensive vascular calcification noted. IMPRESSION: Findings highly suggestive of osteomyelitis involving the distal tuft of the first digit. A [place] message has been communicated via the [employer] system on 03/28/2022 9:11 PM, Message ID [id number]. WSN: [id number] Ordering Physician: Josué Forde Dictated By: Aaron Thorpe MD Dictated Date/Time: 03/28/22 9:12 pm Reviewed By: Aaron Thorpe MD Signed By: Aaron Thorpe MD Signed Date/Time: 03/28/22 9:12 pm Transcribed By: TY Transcribed Date/Time: 03/28/22 9:09 pm Vital Signs Most recent to oldest [Reference Range]: 1 2 3 4 Height 170.18 cm 1 (04/06/22 12:42 PM) Oxygen Saturation [94-100 %] 94 % (04/06/22 4:00 PM) 95 % (04/06/22 11:00 AM) 94 % (04/06/22 7:52 AM) Pulse Rate [55-90 bpm] 83 bpm (04/06/22 4:00 PM) 82 bpm (04/06/22 11:00 AM) 79 bpm (04/06/22 9:13 AM) Blood Pressure [90-138/55-84 mm Hg] 134/74mm Hg (04/06/22 4:00 PM) 134/69mm Hg (04/06/22 11:00 AM) 130/68mm Hg (04/06/22 9:13 AM) 130/68mm Hg (04/06/22 9:13 AM) Respiratory Rate [16-30 br/min] 16 br/min (04/06/22 4:52 PM) 19 br/min (04/06/22 4:00 PM) 17 br/min (04/06/22 12:38 PM) Temperature [96.8-100.4 DegF] 98.8 DegF (04/06/22 4:00 PM) 97.9 DegF (04/06/22 11:00 AM) 98.3 DegF (04/06/22 7:52 AM) Liters per Minute 4 L/min (04/06/22 7:52 AM) 4 L/min (04/06/22 4:08 AM) 4 L/min (04/05/22 8:38 PM) Mode of Delivery (Oxygen) Room air (04/06/22 4:00 PM) Room air (04/06/22 11:00 AM) High flow nasal cannula (04/06/22 7:52 AM) Blood pressure sites Arm, right (04/06/22 4:00 PM) Arm, right (04/06/22 11:00 AM) Arm, left (04/06/22 7:52 AM) Temperature Route Oral (04/06/22 4:00 PM) Oral (04/06/22 11:00 AM) Oral (04/06/22 7:52 AM) 1Result Comment: Ht verified by pt Social History Social History Type Response Smoking Status Never (less than 100 in lifetime) entered on: 09/03/19 Sex 1per pt
--- OUTSIDE RECORDS SUMMARY | 2023-02-20 15:22 | XMS_ITS | Continuity of Care Document ---
Author Name Unknown Organization [facility] Address [address] [place] [address]- Care Team Providers Care Drywall Finisher Foreman Name Role Phone Josef MOSHER, Mamie Patterson Primary Care Physician Encounter [facility] Date(s): 12/16/21 - 01/15/22 [facility] [address] [place], [place] [address] Allergies, Adverse Reactions, Alerts [...] Note: VIS GIVEN-DATED 05/30/11 2Result Comment: LOT [id number] EXP 04 MAY 2010 3Admin Note: VIS [...] 12/29/21 10:02:00 EST, Route to Pharmacy Electronically, [facility] #[id number], 170, cm, 07/28/21 10:50:00 EDT, Height Start Date: 12/29/21 Stop Date: 03/24/23 Status: Ordered atorvastatin 10 mg oral tablet 1 tablet, By Mouth, Daily, # 90 tablet, 1 Refills, Maintenance, 12/13/21 19:21:00 EST, [facility] #[id number], 170, cm, 07/28/21 10:50:00 EDT, Height Start [...] 12/29/21 10:02:00 EST, Route to Pharmacy Electronically, [facility] #[id number], Partial fill upon patientrequest if the prescription [...] tablet, 11 Refills, Maintenance, 12/29/21 10:02:00 EST, [facility] #[id number], resent - not recvd, 170, cm, 07/28/21 10:50:00 EDT, Height Start Date: 12/29/21 Status: Ordered Lantus 100 u/ml subcutaneous solution = 45 units, Subcutaneous Infusion, 2 times a day, changed from PEN, pt requesting vials, # 12 mL, 11 Refills, Maintenance, 01/11/22 9:45:00 EST, [facility] #[id number], Partial fill upon patientrequest if the prescription is for a schedule II op... Start Date: 01/11/22 Status: Ordered lidocaine 5% topical ointment 1 application, Topically, 3 times a day, wash hands thoroughly after application, prn pain, # 50 Gm, 0 Refills, Maintenance, 01/11/22 9:49:00 EST, Ointment, [facility] #[id number], Partial fill upon patient request if the prescription is for a sc... Start Date: 01/11/22 Status: Ordered lisinopril 40 mg oral tablet 1 tablet = 40 mg, By Mouth, Daily, # 90 tablet, 4 Refills, Maintenance, 07/20/21 9:25:00 EDT, Tablet, [facility] #[id number], 170, cm, 07/20/21 8:57:00 EDT, Height Start Date: 07/20/21 Stop Date: 10/13/22 Status: Ordered NovoLOG 100 units/mL injectable solution See Instructions, ADMINISTER 20 UNITS UNDER THE SKIN THREE TIMES DAILY BEFORE MEALS 90 DAY SUPPLY REQUESTED, # 30 mL, 2 Refills, [facility] #[id number], 170, cm, 07/28/21 10:50:00 EDT, Height Start [...] INJECTION SITES, # 2 mL, 0 Refills, [facility] #[id number], 170, cm, 07/28/21 10:50:00 EDT, Height Start Date: 01/10/22 Status: Ordered Ventolin HFA 108 mcg/inh inhalation aerosol with adapter 1 puffs, Inhalation, 4 times a day, PRN NEEDED FOR WHEEZING, # 18 Gm, 0 Refills, [facility] #[id number], 170, cm, 01/11/22 9:39:00 EST, Height Start [...] Obese class I(Confirmed) Active BHN/CCA/Luis Felipe Peters [phone]/Health long term active care coordination(Confirmed) Active Peripheral vascular disease(Confirmed) Active Umbilical hernia(Confirmed) Active 1per 2016 and 2018 [facility] notes Social History Social History Type Response Smoking Status Never (less than 100 in lifetime) entered on: 09/03/19 Sex Female 1per pt
--- OUTSIDE RECORDS SUMMARY | 2023-02-20 15:22 | XMS_ITS | Continuity of Care Document ---
Author Name Unknown Organization [facility] ter Address [address] [place] [address]- Care Team Providers Care Floor Framer Name Role Phone Josef MOSHER, Mamie Patterson Primary Care Physician En[place] [facility] [place] Date(s): 03/28/22 - 03/28/[address] [address]- Discharge Disposition: A-Error Chart/Home (ED Only) Attending Physician: Not on Staff, Attending MD Admitting Physician: Not on Staff, Admitting MD Referring Physician: Not on Staff, Referring MD Allergies, Adverse Reactions, Alerts Substance Reaction Severity Status ibuprofen ABD PAIN Active morphine Vomiting and itchy Active traMADol Itchy, Hives Active Immunizations Given and Recorded Vaccine Date Status Refusal Reason SARS-CoV-2 mRNA (egtfrez-bdos-wrcht) vax 02/22/22 Recorded SARS-CoV-2 (COVID-19) mRNA BNT-162b2 [...] Note: VIS GIVEN-DATED 05/30/11 2Result Comment: LOT [id number] EXP 04 MAY 2010 3Admin Note: VIS [...] 03/10/22 9:04:00 EDT, Route to Pharmacy Electronically, [facility] #[id number], Partial fill upon patient request if the prescription is for a schedule II opi... Start Date: 03/10/22 Status: Ordered atorvastatin 10 mg oral tablet 1 tablet, By Mouth, Daily, # 90 tablet, 1 Refills, Maintenance, 12/13/21 19:21:00 EST, [facility] #[id number], 170, cm, 07/28/21 10:50:00 EDT, Height Start [...] 0 Refills, Maintenance, 03/16/22 14:35:00 EDT, Capsule, [facility], Partial fill upon patient request if the prescription is for a schedule II opioid drug., 169, cm, 03/16/22 14:07:00... Start Date: 03/16/22 Status: Ordered insulin aspart 100 units/mL subcutaneous solution = 20 units, Subcutaneous Injection, 3 times a day before meals, # 10 mL, 11 Refills, Maintenance, 03/10/22 9:06:00 EDT, Solution, [facility] #[id number], Partial fill upon patient request if theprescription [...] tablet, 11 Refills, Maintenance, 03/09/22 14:23:00 EDT[facility], 169, cm, 03/09/22 13:46:00 EDT, Height, 104.9, kg, 03/04/22 2:58:00 EDT, Dry Weight Start Date: 03/09/22 Status: Ordered Lantus 100 u/ml subcutaneous solution = 30 units, Subcutaneous Injection, 2 times a day, # 10 mL, 5 Refills, Maintenance, 03/10/22 9:05:00 EDT, Solution, [facility] #[id number], Partial fill upon patient request if the prescription is for a schedule II opioid drug., 169, cm, 03/09/22... Start Date: 03/10/22 Status: Ordered lisinopril 40 mg oral tablet 1 tablet = 40 mg, By Mouth, Daily, # 30 tablet, 5 Refills, Maintenance, 03/10/22 9:03:00 EDT, Tablet, [facility] #[id number], Partial fill upon patient request if the [...] 0 Refills, Maintenance, 03/09/22 14:21:00 EDT, Gel, [facility] Partial fill upon patient request if the p... Start Date: 03/09/22 Status: Ordered traZODone 300 mg oral tablet 1 tablet = 300 mg, By Mouth, Daily at bedtime Start Date: 03/03/22 Status: Ordered Trulicity Pen 3 mg/0.5 mL subcutaneous solution See Instructions, ADMINISTER 0.5 ML UNDER THE SKIN EVERY WEEK. ROTATE INJECTION SITES, # 2 mL, 11 Refills, 03/09/22 14:22:00 EDT, [facility] 169, cm, 03/09/22 13:46:00 EDT, Height, 104.9, kg, 03/04/22 2:58:00 EDT, Dry Weight Start Date: 03/09/22 Status: Ordered Tylenol Extra Strength 500 mg oral tablet 2 tablet = 1,000 mg, By Mouth, Every 6 hours, prn pain, # 100 tablet, 0 Refills, Maintenance, 03/16/22 14:30:00 EDT, [facility], Partial fill upon patient request if the prescription is for a schedule II opioid drug., 169, cm, 03/16/22... Start Date: 03/16/22 Status: Ordered Ventolin HFA 108 mcg/inh inhalation aerosol with adapter 1 puffs, Inhalation, 4 times a day, PRN NEEDED FOR WHEEZING, # 18 Gm, 0 Refills, [facility] #[id number], 170, cm, 01/11/22 9:39:00 EST, Height Start Date: 01/12/22 Status: Ordered Problem List Condition Effective Dates Status Health Status Inform ant Abdominal pain(Confirmed) Active Stroey's cyst of knee(Confirmed) Active Cholecystectomy(Confirmed) Active Diabetes mellitus(Confirmed) 07/2007 Active Diabetic peripheral neuropathy(Confirmed) Active Diabetic retinopathy - next due (Confirmed) 2016 Active Reading difficulty(Confirmed) Active Dyslipidemia(Confirmed) Active Hypertension(Confirmed) Active Microalbuminuria(Confirmed) Active Morbid obesity(Confirmed) Active Obese class II(Confirmed) Active BHN/CCA/AUDRA-Mignon Peters [phone]/Health half-way active care coordination(Confirmed) Active Peripheral vascular disease(Confirmed) Active Uncontrolled type 1 diabetes mellitus with hyperglycemia, with long-term current use of insulin(Confirmed) Active Umbilical hernia(Confirmed) Active 1per 2016 and 2018 [facility] notes Social History Social History Type Response Smoking Status Never (less than 100 in lifetime) entered on: 09/03/19 Sex 1per pt
--- OUTSIDE RECORDS SUMMARY | 2023-02-20 15:22 | XMS_ITS | Continuity of Care Document ---
Author Name Unknown Organization [facility] Address [address] [place] [address]- Care Team Providers Care Web Methods Developer Name Role Phone Allegra Aguayo MD [facility] Care Phys[id number]28[facility] - 12/05/[facility] [address] [place], [place] [address] Attending Physician: Madeline Asif NP Admitting Physician: Madeline Asif NP Referring Physician: Allegra Aguayo MD Allergies, Adverse Reactions, Alerts Substance Reaction Severity Status ibuprofen ABD PAIN Active morphine Vomiting and itchy Active traMADol Itchy, Hives Active Immunizations Given and Recorded Vaccine Date Status Refusal Reason SARS-CoV-2 mRNA (rsulcph-rnnn-boaxq) vax 02/22/22 Recorded SARS-CoV-2 (COVID-19) mRNA BNT-162b2 [...] Note: VIS GIVEN-DATED 05/30/11 2Result Comment: LOT [id number] EXP 04 MAY 2010 3Admin Note: VIS [...] EDT, Lotion, [facility]/pharmacy #[id number], Partial fill upon patient request if the prescription is for a schedule II opioid drug., 1 application Topically 2 times a da... Start Date: 05/01/22 Stop Date: 05/31/22 Status: Ordered aspirin 81 mg oral delayed release tablet 81 mg, By Mouth, Daily, # 30 tablet, Refills 0, Tot. Refills 0, Maintenance, 11/09/22 16:40:00 EST,Route to Pharmacy Electronically, [facility]/pharmacy #[id number], Partial [...] to Pharmacy Electronically, [facility]/pharmacy #[id number], Partial fill upon patient request if the pres... Start Date: 07/26/22 Stop Date: 01/22/23 Status: Ordered carvedilol 25 mg oral tablet 25 mg, 1, tablet, By Mouth, 2 times a day, # 60 tablet, Refills 2, Tot. Refills 2, Maintenance, 01/22/23 16:13:00 EDT, Route to Pharmacy Electronically, [facility]/pharmacy #[id number], Partial [...] Maintenance, 09/21/22 11:57:00 EST, Tablet, [facility]/pharmacy #[id number], Partial [...] 10/16/22 10:25:00 EST, Route to Pharmacy Electronically, [facility] #[id number], Partial fill upon patientrequest if the prescription [...] each, 0 Refills, Maintenance, 12/04/22 15:48:00 EST, [facility]/pharmacy #[id number], Partial [...] EST, Route to Pharmacy Electronically, [facility]/pharmacy #[id number], Partial fillupon patient request if the prescription is for a s... Start Date: 09/20/22 Status: Ordered levoFLOXacin 250 mg oral tablet 1 tablet = 250 mg, By Mouth, Every 24 hours, # 14 tablet, 0 Refills, Maintenance, 09/20/22 11:28:00EST, Tablet, [facility]/pharmacy #[id number], Partial [...] EST, Route to Pharmacy Electronically, [facility]/pharmacy #[id number], Partial [...] Refills, Maintenance, 11/28/22 13:29:00 EST, [facility]/pharmacy #[id number], Partial fill upon patient request if the prescription is for a schedule II opioid drug., 169,... Start Date: 11/28/22 Status: Ordered PARoxetine 40 mg oral tablet 40 mg, 1, tablet, By Mouth, Daily, Refills 0, Maintenance, 01/11/22 9:43:00 EST Start Date: 01/11/22 Status: Ordered Pen [place], 31 G x 5 mm BD Ultra [...] Maintenance, 11/22/22 12:11:00 EST, Ointment, [facility]/pharmacy #[id number], Partial [...] Maintenance, 10/16/22 13:14:00 EST, Solution, [facility]/pharmacy #[id number], Partial fill upon patient request if the prescription is for a schedule II opioid drug., 169, cm, 10/09/22 8:39... Start Date: 10/16/22 Status: Ordered Ventolin HFA 108 mcg/inh inhalation aerosol with adapter 1 puffs, Inhalation, Every 4 hours, PRN NEEDED FOR WHEEZING, # 18 Gm, 0 Refills, Maintenance, 11/02/22 8:15:00 EST, [facility][id number], 169, cm, 11/01/22 11:21:00 EST, Height, 103.42, [...] Active Morbid obesity Confirmed Active BHN/CCA/CP- [facility] [phone] [facility] active care coordination Confirmed Active Peripheral vascular disease - right SFA angioplasty/right great toe amputation 2021 Confirmed Active Severe obesity (BMI 35.0-39.9) with comorbidity Confirmed Active Umbilical hernia Confirmed Active 1per 2017 and 2019 [facility] notes Vital Signs Most recent to oldest [Reference Range]: 1 Height 169 cm (11/28/22 9:17 AM) Weight 109 kg (11/28/22 9:17 AM) Oxygen Saturation [94-100 %] 97 % (11/28/22 9:17 AM) Pulse Rate [55-90 bpm] 95 bpm *H* (11/28/22 9:17 AM) Body Mass Index [18.5-24.99 kg/m2] 38.16 kg/m2 *>HHI* (11/28/22 9:17 AM) Blood Pressure [90-138/55-84 mm Hg] 148/ 88mm Hg *H* (11/28/22 9:17 AM) Mode of Delivery (Oxygen) Room air (11/28/22 9:17 AM) Blood pressure sites Arm, right (11/28/22 9:17 AM) Weight Obtained Via Patient/family state d (11/28/22 9:17 AM) Social History Social History Type Response Smoking Status Never (less than 100 in lifetime) entered on: 09/03/19 Sex 1per pt Note * Kobe Eldridge: PERFORM, SIGN, VERIFY Event Display: Patient Education/Instruction Authored Date: [id number] [facility] [address] Clinical Summary Name SUZIE COPPOLA Age 47 Years 1975 PCP Olivier MOSHER, Allegra PCP Visit Date 11/28/2022 08:51:00 Additional Instructions: Scheduled Appointments?? Future Appointments ?*BV[facility]??Lab[address] ?Phone:??--?Fax:??-- ?Appt. Date:??12/11/2022?3:00 PM ?Scheduled Provider:??Ultrasound Room 2 [facility] ?[facility] ?[place],??[place],??[address] ?Phone:??--?Fax:??-- ?Appt. Date:??12/12/2022?10:00 AM ?Scheduled Provider:??Nilesh DONIS, Arlette ?*[facility],??[place],??[address] ?Phone:??--?Fax:??-- ?Appt. Date:??12/20/2022?10:00 AM ?Scheduled Provider:??Victor Hugo MOSHER , Aditi Kilgore Follow-Up Instructions ?? Diagnosis Medications: Please continue your medications until treatment is completed or stopped by your provider. Discuss any questions related to medications with your provider. Medications to Continue with No Changes These medications were not printed or sent to your pharmacy Albuterol (Ventolin HFA 108 mcg/inh inhalation aerosol with adapter) 1 puff(s) Inhalation every 4 hours as needed NEEDED FOR WHEEZING. Refills: 0. Next Dose: Amlodipine (amLODIPine 10 mg oral [...] for 30 Days. Refills: 0. Next Dose: Atorvastatin (atorvastatin 40 mg oral tablet) 1 tab(s) Oral Daily. Refills: 2. Next Dose: Carvedilol (carvedilol 25 mg oral tablet) 1 tab(s) Oral twice a day for 30 Days. Refills: 5. Next Dose: Carvedilol (carvedilol 25 mg oral tablet) 1 tab(s) Oral twice a day for 30 Days. Refills: 2. Next Dose: Clopidogrel (Plavix 75 mg oral tablet) 1 tab(s) Oral Daily. Refills: 5. Next Dose: Collagenase Topical (Santyl 250 u/gm ointment) 1 hernan Topically Daily. uase as directed to right great and second toes. Refills: 1. Next Dose: Collagenase Topical (Santyl 250 u/gm ointment) 1 hernan Topically Daily. Refills: 0. Next Dose: Docusate (Colace sodium 100 mg [...] 1. Next Dose: Miscellaneous Rx (D/armando Rx) Januvia has been discontinued. Refills: 0. Next Dose: Oxycodone (oxyCODONE 10 mg oral tablet) 1 tab(s) Oral every 12 hours. Refills: 0. Next Dose: Paroxetine (PARoxetine 40 mg oral tablet) 1 tab(s) Oral Daily. Next Dose: Trazodone (traZODone 300 mg oral tablet) 1 tab(s) Oral Daily at Bedtime. Next Dose: Allergy Info:?? traMADol; morphine; ibuprofen Medications Given This Visit Future Orders ?No future orders Vital Signs Height 169 cm Weight 109 kg BMI 38.16 kg/m2 Blood Pressure 148 mm Hg/88 mm Hg Temperature Pulse Rate 95 bpm Respiratory Rate 02 Sat Mode of Delivery 97 %/Room air You can now view a summary of your hospital visit from the comfort of your home through a free online portal called [employer]. [employer] is a website that allows you to securely view your medical information including discharge summary, medications and follow-up visits. ??You can alsosend a secure electronic message to your doctor???s office to request appointments, renew medications or just ask a question. You can enroll at [email or web address] or register during your next [...] primary care provider, you may find a [facility] provider by calling [facility] at [phone]. For information about the plan of care [...] Team Personnel Name: Allegra Aguayo MD [facility] Resident Member Role: PCP Address: Address: [address] [place] [id number] Name: Vera Locke RN Position: [facility] RN Member Role: Primary Care Nurse Name: Baljit Martínez RN Position[facility] RN Member Role: Primary Care Nurse Name: Sabine Guthrie RN Position: [facility] RN Member Role: Primary Care Nurse Name: Aditi Hernandez RN Position[facility] RN Member Role: Primary Care Nurse Name: Piyush Moore RN Position: [facility] RN Member Role: Primary Care Nurse Name: Mis Vences RN Position[facility] RN Member Role: Primary Care Nurse Name: Angie Lopez RN Position[facility] RN Member Role: Primary Care Nurse Name: Lizzie Estrada RN Position[facility] RN Member Role: Primary Care Nurse Care Team Related Persons Name: MIKEY SEAY Address: home [address] [address] Name: MIKEY AYALA Address: home [address] [place] [address] Name: TANIA COPPOLA Address: home [address] [place] [address] Name: TANIA MUÑIZ Address: home [address] [place] [address]
--- OUTSIDE RECORDS SUMMARY | 2023-02-20 15:22 | XMS_ITS | Continuity of Care Document ---
Author Name Unknown Organization [facility] ter Address [address] [place] [address]- Care Team Providers Care Otr Truck Driver Name Role Phone Meagan Santos DO Primary Care Physici an Encounter [facility] [place] Date(s): 09/09/19 - 12/17/[address] [address]- [facility] Attending Physician: Lory Ashley MD Admitting Physician: Lory Ashley MD Referring Physician: Mamie Bahena MD Allergies, [...] Note: VIS GIVEN-DATED 05/30/11 2Result Comment: LOT [id number] EXP 04 MAY 2010 3Admin Note: VIS [...] 01/29/19 10:06:52 EDT, Route to Pharmacy Electronically, [id number], [id number] Start Date: 01/29/19 Stop Date: 01/24/20 Status: [...] 03/06/19 17:12:53 EDT, Route to Pharmacy Electronically, [id number], [facility] [id number] Start Date: 03/06/19 Status: Ordered insulin glargine [...] 05/13/19 13:22:55 EDT, pt was transferred to [facility], all meds left beh... Start [...] HS Start Date: 01/29/19 Status: Ordered Pen [place], 31 G x 5 mm BD Ultra [...] 6 Refills, Maintenance, 12/16/19 10:57:00 EST, Solution, [facility] #[id number], 170, cm, 12/16/19 10:11:00 EST, Height, 100.5, [...] - next due (Confirmed) 1 2016 Active Dyslipidemia(Confirmed) Active Hypertension(Confirmed) Active Microalbuminuria(Confirmed) Active Morbid obesity(Confirmed) Active Umbilical hernia(Confirmed) Active 1per 2016 and 2018 [facility] notes Social History Social History Type Response Smoking Status Never (less than 100 in lifetime) entered on: 09/03/19 Sex Female 1per pt
--- OUTSIDE RECORDS SUMMARY | 2023-02-20 15:22 | XMS_ITS | Continuity of Care Document ---
Author Name Unknown Organization [facility] Address [address] [place] [address]- Care Team Providers Care Junior Designer Name Role Phone Josef MOSHER, Mamie Patterson Primary Care Physician [phone] Encounter [facility] Date(s): 01/30/22 - 04/05/[address] [address] Attending Physician: Not on Staff, Attending MD Allergies, Adverse Reactions, Alerts Substance Reaction Severity Status ibuprofen ABD PAIN Active morphine Vomiting and itchy Active traMADol Itchy, Hives Active Immunizations Given and Recorded Vaccine Date Status Refusal Reason SARS-CoV-2 mRNA (mftuklk-yonz-cdtun) vax 02/22/22 Recorded SARS-CoV-2 (COVID-19) mRNA BNT-162b2 [...] Note: VIS GIVEN-DATED 05/30/11 2Result Comment: LOT [id number] EXP 04 MAY 2010 3Admin Note: VIS [...] 03/10/22 9:04:00 EDT, Route to Pharmacy Electronically, [facility] #[id number], Partial fill upon patient request if the prescription is for a schedule II opi... Start Date: 03/10/22 Status: Ordered atorvastatin 10 mg oral tablet 1 tablet, By Mouth, Daily, # 90 tablet, 1 Refills, Maintenance, 12/13/21 19:21:00 EST, [facility] #[id number], 170, cm, 07/28/21 10:50:00 EDT, Height Start [...] 11 Refills, Maintenance, 03/10/22 9:06:00 EDT, Solution, [facility] #[id number], Partial fill upon patient request if theprescription [...] tablet, 11 Refills, Maintenance, 03/09/22 14:23:00 EDT, [facility], resent - not recvd, 169, cm, 03/09/22 13:46:00 EDT, Height, 104.9, kg, 03/04/22 2:58:00 EDT, Dry Weight Start Date: 03/09/22 Status: Ordered Lantus 100 u/ml subcutaneous solution = 30 units, Subcutaneous Injection, 2 times a day, # 10 mL, 5 Refills, Maintenance, 03/10/22 9:05:00 EDT, Solution, [facility] #[id number], Partial fill upon patient request if the prescription is for a schedule II opioid drug., 169, cm, 03/09/22... Start Date: 03/10/22 Status: Ordered lisinopril 40 mg oral tablet 1 tablet = 40 mg, By Mouth, Daily, # 30 tablet, 5 Refills, Maintenance, 03/10/22 9:03:00 EDT, [facility] #[id number], Partial fill upon patient request if the [...] Refills, Maintenance, 03/09/22 14:21:00 EDT, Gel, [facility], Partial fill upon patient [...] 2 mL, 11 Refills, 03/09/22 14:22:00 EDT, [facility]., 169, cm, 03/09/22 13:46:00 EDT, Height, 104.9, kg, 03/04/22 2:58:00 EDT, Dry Weight Start Date: 03/09/22 Status: Ordered Tylenol Extra Strength 500 mg oral tablet 2 tablet = 1,000 mg, By Mouth, Every 6 hours, prn pain, # 100 tablet, 0 Refills, Maintenance, 03/16/22 14:30:00 EDT[facility] Partial fill upon patient request if the prescription is for a schedule II opioid drug., 169, cm, 03/16/22... Start Date: 03/16/22 Status: Ordered Ventolin HFA 108 mcg/inh inhalation aerosol with adapter 1 puffs, Inhalation, 4 times a day, PRN NEEDED FOR WHEEZING, # 18 Gm, 0 Refills, [facility] #[id number], 170, cm, 01/11/22 9:39:00 EST, Height Start [...] Obese class II(Confirmed) Active BHN/CCA/Luis Felipe Peters [phone]/[facility] active care coordination(Confirmed) Active Peripheral vascular disease(Confirmed) Active Uncontrolled type 1 diabetes mellitus with hyperglycemia, with long-term current use of insulin(Confirmed) Active Umbilical hernia(Confirmed) Active 1per 2016 and 2018 [facility] notes Social History Social History Type Response Smoking Status Never (less than 100 in lifetime) entered on: 09/03/19 Sex 1per pt
--- OUTSIDE RECORDS SUMMARY | 2023-02-20 15:22 | XMS_ITS | Continuity of Care Document ---
Author Name Unknown Organization [facility] Address [address] [place] [address]- Care Team Providers Care Manager Finance Name Role Phone Olivier MOSHER, Allegra Primary Care Physician [phone] Encounter [facility] Date(s): 07/12/22 - 08/11/22 [facility] [address] [place], [place] [address] Allergies, Adverse Reactions, Alerts Substance Reaction Severity Status ibuprofen ABD PAIN Active morphine Vomiting and itchy Active traMADol Itchy, Hives Active Immunizations Given and Recorded Vaccine Date Status Refusal Reason SARS-CoV-2 mRNA (maaabjk-bdbh-rwjhl) vax 02/22/22 Recorded SARS-CoV-2 (COVID-19) mRNA BNT-162b2 [...] Note: VIS GIVEN-DATED 05/30/11 2Result Comment: LOT [id number] EXP 04 MAY 2010 3Admin Note: VIS [...] 0 Refills, Maintenance, 05/01/22 12:34:00 EDT, Lotion, [facility]/pharmacy #[id number], Partial fill upon patient request [...] 2 Refills, Maintenance, 04/24/22 9:41:00 EDT, Tablet, [facility] Partial fill upon patient request if [...] [id number], Partial fill upon patient request if [...] 07/07/22 15:52:00 EDT, [place] to Pharmacy Electronically, [facility] [...] 6 Refills, Soft Stop, 08/01/22 16:09:00EDT, Solution, [facility]., Partial fill upon patient request if the prescription isfor a schedule II opioid drug., 169, cm, 08/01/22 1... Start Date: 08/01/22 Stop Date: 04/22/24 Status: Ordered lisinopril 10 mg oral tablet 10 mg, 1, tablet, By Mouth, Daily, # 90 tablet, Refills 4, Tot. Refills 4, Maintenance, 07/12/22 10:12:00 EDT, Route to Pharmacy Electronically, [facility] #[id number], Partial fill upon patientrequest if the prescription is for a schedule II op... Start Date: 07/12/22 Stop Date: 10/05/23 Status: Ordered NovoLOG FlexPen 100 units/mL injectable solution = 20 units, Subcutaneous Injection, 3 times a day before meals, INJECT 20 UNITS INTO SKIN THREE TIMES DAILY BEFORE A MEAL, # 15 mL, 10 Refills, Maintenance, 08/01/22 16:09:00 EDT, [facility] 169, cm, 08/01/22 14:14:00 [...] Acute 08/25/22 8:51:00 EDT, 08/11/22 8:51:00 EDT, [facility]/pharmacy #[id number], Partial fill upon patient request if the prescription is for a schedule II opioid drug., 169, cm, ... Start Date: 08/11/22 Stop Date: 08/25/22 Status: Ordered oxyCODONE 5 mg oral tablet 5 mg, 1, tablet, By Mouth, Daily at bedtime, PRN, for 10 days, # 28 tablet, Refills 0, Tot. Refills0, Acute 08/13/22 9:37:00 EDT, as needed for pain, 08/03/22 9:37:00 EDT, [id number], Partial fill upon patien... Start Date: [...] 4 Refills, Maintenance, 07/19/22 10:42:00 EDT, Solution, [id number], Partial fill upon patient request if the [...] Gm, 1 Refills, Maintenance, 05/30/22 10:56:00 EDT, [facility], Partial fill upon patient [...] Obese class II Confirmed Active BHN/CCA/CP- [facility] [phone] nursing home active care coordination Confirmed Active Peripheral vascular disease Confirmed Active Umbilical hernia Confirmed Active 1per 2016 and 2018 [facility] notes Social History Social History Type Response Smoking Status Never (less than 100 in lifetime) entered on: 09/03/19 Sex 1per pt Patient Care team information Personnel Name: Allegra Aguayo MD Address: Address: [address] [place] [address]
--- OUTSIDE RECORDS SUMMARY | 2023-02-20 15:22 | XMS_ITS | Continuity of Care Document ---
Author Name Unknown Organization [facility] Address [address] [place] [address]- Care Team Providers Care Registered Diet Technician Name Role Phone Arlette Galloway NP Primary Care Physician Encounter [facility] Date(s): 04/02/20 - 05/15/20 [facility] [address] [place] [address]- [facility] Attending Physician: Ashvin DONIS, Zahra Bennett Admitting [...] Note: VIS GIVEN-DATED 05/30/11 2Result Comment: LOT [id number] EXP 04 MAY 2010 3Admin Note: VIS [...] 02/03/20 12:39:00 EDT, Route to Pharmacy Electronically, [id number], 170, cm, 12/16/19 10:11:00 EST, Height, 100.5, [...] 03/06/19 17:12:53 EDT, Route to Pharmacy Electronically, [id number], [facility] [id number] Start Date: 03/06/19 Status: Ordered insulin glargine 100 u/ml subcutaneous solution See Instructions, 40 units in the MORNING and 40 units AT BEDTIME Subcutaneous Injection dx E11.9 Rotate injection sites, # 60 mL, 1 Refills, Maintenance, 02/09/20 16:59:00 EDT, Solution, [facility] #[id number], 170, cm, 12/16/19 10:11:00 EST,... Start Date: 02/09/20 Status: Ordered Insulin Syringe, BD Ultra-Fine 0.5 cc 31 G x 8 mm (5/16in) See Instructions, # 150 each, Refills 11, Tot. Refills 11, Maintenance, use as directed for Type 2 Diabetes Mellitus to admisiter insulin four times a day. Dx; E11.9, 05/13/19 13:22:55 EDT, pt was transferred to [facility], all meds left beh... Start Date: 05/13/19 Stop Date: 05/07/20 Status: Ordered Lantus 100 u/ml subcutaneous solution = 40 units, Subcutaneous Infusion, 2 times a day, # 15 mL, 11 Refills, Maintenance, 04/28/20 11:50:00 EDT, [facility] #[id number], 170, cm, 04/02/20 13:31:00 EDT, Height, 100.5, kg, 05/30/19 9:39:00 EDT, Dry Weight Start Date: 04/28/20 Stop Date: 04/23/21 Status: Ordered lisinopril 40 mg oral tablet 1 tablet = 40 mg, By Mouth, Daily, # 90 tablet, 4 Refills, Maintenance, 02/03/20 12:39:00 EDT, Tablet, [facility] #[id number], 170, cm, 12/16/19 10:11:00 EST, Height, 100.5, kg, 05/30/19 9:39:00EDT, Dry Weight Start Date: 02/03/20 Stop Date: 04/28/21 Status: Ordered Melatonin 5 mg oral tablet 0 Refills, Maintenance, 01/29/19 10:09:09 EDT Start Date: 01/29/19 Status: Ordered meloxicam 5 mg oral capsule 1 capsule = 5 mg, By Mouth, Daily, # 5 capsule, 0 Refills, Maintenance, 02/03/20 10:30:00 EDT, Capsule, [facility] #[id number], 170, cm, 12/16/19 10:11:00 EST, Height, 100.5, kg, 05/30/19 9:39:00 EDT, Dry Weight Start Date: 02/03/20 Stop Date: 02/08/20 Status: Ordered NovoLOG 100 units/mL injectable solution = 20 units, Subcutaneous Infusion, 3 times a day before meals, replaces humalog, # 50 mL, 1 Refills, Maintenance, 02/09/20 16:58:00 EDT, [facility] #[id number], 170, cm, 12/16/19 10:11:00 EST, Height, 100.5, kg, 05/30/19 9:39:00 EDT, Dry Weight Start Date: 02/09/20 Status: Ordered OXcarbazepine 300 mg oral tablet TK 1 T PO BID Start Date: 01/29/19 Status: Ordered PARoxetine 40 mg oral tablet TK 1 T PO HS Start Date: 01/29/19 Status: Ordered Pen [place], 31 G x 5 mm BD Ultra [...] 5 Refills, Maintenance, 02/03/20 10:19:00 EDT, Solution, [facility] #[id number], 170, cm, 12/16/19 10:11:00 EST, Height, 100.5, [...]
--- OUTSIDE RECORDS SUMMARY | 2023-02-20 15:22 | XMS_ITS | Continuity of Care Document ---
Author Name Unknown Organization [facility] Address [address] [place] [id number]- Care Team Providers Care Proof Clerk Name Role Phone Josef MOSHER, Mamie Patterson Primary Care Physician Encounter [facility] Date(s): 03/28/22 - 04/27/22 [facility] [address] [place] [id number] Attending Physician: Satish Whittington Admitting Physician: AdmtrSatish Referring Physician: Admtr, Ar8 Allergies, Adverse Reactions, Alerts Substance Reaction Severity Status ibuprofen ABD PAIN Active morphine Vomiting and itchy Active traMADol Itchy, Hives Active Immunizations Given and Recorded Vaccine Date Status Refusal Reason SARS-CoV-2 mRNA (xcubazw-yumv-[id number]) vax 02/22/22 Recorded SARS-CoV-2 (COVID-19) mRNA BNT-162b2 [...] Note: VIS GIVEN-DATED 05/30/11 2Result Comment: LOT [id number] EXP 04 MAY 2010 3Admin Note: VIS [...] 04/13/22 16:40:00 EDT, Route to Pharmacy Electronically, [facility], Partial fill upon patient request [...] 05/13/22 16:40:00 EDT, Route to Pharmacy Electronically, [facility] [...] 04/13/22 16:40:00 EDT, Route to Pharmacy Electronically, [facility], Partial fill upon patient request [...] 05/11/22 8:04:00 EDT, 04/27/22 8:04:00 EDT, Capsule, [facility], Partial fill upon patient request [...] 04/24/22 9:02:00 EDT, Route to Pharmacy Electronically, [facility], Partial fill upon patient request if the prescription is for a schedule II opio... Start Date: 04/24/22 Status: Ordered insulin aspart 100 units/mL subcutaneous solution = 20 units, Subcutaneous Injection, 3 times a day before meals, # 10 mL, 11 Refills, Maintenance, 03/10/22 9:06:00 EDT, Solution, [facility] #[id number], Partial fill upon patient request if theprescription [...] tablet, 11 Refills, Maintenance, 03/09/22 14:23:00 EDT, [facility], resent - not recvd, 169, cm, 03/09/22 13:46:00 EDT, Height, 104.9, kg, 03/04/22 2:58:00 EDT, Dry Weight Start Date: 03/09/22 Status: Ordered Lantus 100 u/ml subcutaneous solution = 30 units, Subcutaneous Injection, 2 times a day, # 10 mL, 5 Refills, Maintenance, 03/10/22 9:05:00 EDT, Solution, [facility] #[id number], Partial fill upon patient request if the prescription is for a schedule II opioid drug., 169, cm, 03/09/22... Start Date: 03/10/22 Status: Ordered lisinopril 10 mg oral tablet 10 mg, 1, tablet, By Mouth, Daily, # 30 tablet, Refills 4, Tot. Refills 4, Maintenance, 04/24/22 9:41:00 EDT, Route to Pharmacy Electronically, [facility] [...] 04/24/22 13:25:00 EDT, [id number], Partial fill upon patient request if [...] Refills, Maintenance, 04/18/22 9:51:00 EDT, Aerosol, [facility] Partial fill upon patient request [...] Refills, Maintenance, 03/09/22 14:21:00 EDT, Gel, [facility] Partial fill upon patient request if the p... Start Date: 03/09/22 Status: Ordered traZODone 300 mg oral tablet 1 tablet = 300 mg, By Mouth, Daily at bedtime Start Date: 03/03/22 Status: Ordered Trulicity Pen 3 mg/0.5 mL subcutaneous solution See Instructions, ADMINISTER 0.5 ML UNDER THE SKIN EVERY WEEK. ROTATE INJECTION SITES, # 2 mL, 11 Refills, 03/09/22 14:22:00 EDT, [facility] 169, cm, 03/09/22 13:46:00 EDT, Height, 104.9, kg, 03/04/22 2:58:00 EDT, Dry Weight Start Date: 03/09/22 Status: Ordered Tylenol 8 Hour 650 mg oral tablet, extended release 2 tablet = 1,300 mg, By Mouth, Every 8 hours, PRN as needed for pain, # 24 tablet, 0 Refills, Maintenance, 04/24/22 9:43:00 EDT, ER Tablet, [facility] Partial fill upon patient request [...] Active Obese class II(Confirmed) Active BHN/CCA/AUDRA-Mignon Peters [phone]/Health residential active care coordination(Confirmed) Active Peripheral vascular disease(Confirmed) Active Uncontrolled type 1 diabetes mellitus with hyperglycemia, with long-term current use of insulin(Confirmed) Active Umbilical hernia(Confirmed) Active 1per 2017 and 2019 [facility] notes Social History Social History Type Response Smoking Status Never (less than 100 in lifetime) entered on: 09/03/19 Sex 1per pt
--- OUTSIDE RECORDS SUMMARY | 2023-02-20 15:22 | XMS_ITS | Continuity of Care Document ---
Author Name Unknown Organization [facility] Address [address] [place] [address]- Care Team Providers Care Manager Of Clinical Name Role Phone Allegra Aguayo MD Primary Care Physician Encounter 09/13/22 - 12/27/22 [facility] [address] [place] [address]- Discharge Disposition: CLIENT NO LONGER REQUIRES SKILLED CARE Allergies, Adverse Reactions, Alerts Substance Reaction Severity Status ibuprofen ABD PAIN Active morphine Vomiting and itchy Active traMADol Itchy, Hives Active Immunizations Given and Recorded Vaccine Date Status Refusal Reason SARS-CoV-2 mRNA ([id number]-yvlt-amphn) vax 02/22/22 Recorded SARS-CoV-2 (COVID-19) mRNA BNT-162b2 [...] Note: VIS GIVEN-DATED 05/30/11 2Result Comment: LOT [id number] EXP 04 MAY 2010 3Admin Note: VIS [...] 04/24/22 9:05:00 EDT, Route to Pharmacy Electronically, [facility], Partial fill upon patient request if [...] 12/25/22 11:05:00 EST,Route to Pharmacy Electronically, [facility]/pharmacy #[id number], Partial fill upon patient request if the prescription is for a schedule II opioid drug., 169, cm,... Start Date: 12/25/22 Stop Date: 03/25/23 Status: Ordered atorvastatin 40 mg oral tablet 1 tablet = 40 mg, By Mouth, Daily, # 90 tablet, 2 Refills, Maintenance, 04/24/22 9:41:00 EDT, Tablet, [facility], Partial fill upon patient request if [...] 03/16/22 14:30:00 EDT, Route to Pharmacy Electronically, [facility], Partial fill upon patient request if [...] 10/16/22 10:25:00 EST, Route to Pharmacy Electronically, [email or web address] #[id number], Partial fill upon patientrequest if the prescription [...] 0 Refills, Maintenance, 12/04/22 15:48:00 EST, [facility]/pharmacy #[id number], Partial fill [...] tablet, 0 Refills, Maintenance, 09/20/22 11:28:00EST, [id number], Partial fill upon patient request if the prescription is for a schedule II opioid drug., 169, cm, 09/20/22 9:22:00 EST... Start Date: 09/20/22 Stop Date: 10/04/22 Status: Ordered lisinopril 10 mg oral tablet 10 mg, 1, tablet, By Mouth, Daily, # 90 tablet, Refills 0, Tot. Refills 0, Maintenance, 11/30/22 8:10:00 EST, [id number], Partial fill upon patient request [...] tablet, 0 Refills, Maintenance, 11/28/22 13:29:00 EST, [id number] Partial fill upon patient request if the prescription is for a schedule II opioid drug., 169,... Start Date: 11/28/22 Status: Ordered oxyCODONE 10 mg oral tablet 1 tablet = 10 mg, By Mouth, Every 12 hours, PRN Pain , Moderate, # 30 tablet, 0 Refills, Maintenance, 12/15/22 18:43:00 EST, [facility]/pharmacy #[id number], Partial fill upon patient request if the prescription is for a schedule II opioid drug., 169, cm, 11/28/22... Start Date: 12/15/22 Status: Ordered PARoxetine 40 mg oral tablet 40 mg, 1, tablet, By Mouth, Daily, Refills 0, Maintenance, 01/11/22 9:43:00 EST Start Date: 01/11/22 Status: Ordered Pen [place], 31 G x 5 mm BD Ultra [...] 04/24/22 9:03:00 EDT, Route to Pharmacy Electronically, [facility], Partial fill upon patient request if [...] Refills, Maintenance, 11/22/22 12:11:00 EST, Ointment, [facility]/pharmacy #[id number], Partial fill [...] Active Morbid obesity Confirmed Active BHN/CCA/CP- Angle [phone] alf active care coordination Confirmed Active Peripheral [...] CENTER Resident Member Role: PCP Address: Address: [address] [place] [id number]- Name: Vera Locke RN Position: S RN Member Role: Primary Care Nurse Name: Baljit Martínez RN Position: [facility] RN Member Role: Primary Care Nurse Name: Sabine Guthrie RN Position: [facility] RN Member Role: Primary Care Nurse Name: Aditi Hernandez RN Position: [facility] RN Member Role: Primary Care Nurse Name: Piyush Moore RN Position: [facility] RN Member Role: Primary Care Nurse Name: Mis Vences RN Position: [facility] RN Member Role: Primary Care Nurse Name: Angie Lopez RN Position: [facility] RN Member Role: Primary Care Nurse Name: Lizzie Estrada RN Position: [facility] Onco RN Member Role: Primary Care Nurse Care Team Related Persons Name: MIKEY SEAY Address: home [address] [address] Name: MIKEY AYALA Address: home [address] [place] [address] Name: TANIA COPPOLA Address: home [address] [place] [address] Name: TANIA MUÑIZ Address: home [address] [place] [address]
[2023-02-20 15:24] LABS: Basophils Percent Auto 0.2 % (0-2); Eosinophils Percent Auto 0.1 % (0-4); Hematocrit 35.9 % (37.0-47.0); Hemoglobin 11.6 g/dl (12.0-16.0); Imm Gran Abs Auto 0.06 X10*3/uL (0.00-0.03); Imm Gran Pct Auto 0.5 % (0.0-0.4); Mean Corpuscular HGB Conc 32.3 g/dl (31.0-35.0); Mean Corpuscular Hemoglobin 30.3 pg (27.0-33.0); Mean Corpuscular Volume 93.7 fL (80.0-98.0); Mean Platelet Volume 9.6 fL (9.4-12.3); Monocytes Absolute Auto 0.2 X10*3/uL (0.1-1.2); Monocytes Percent Auto 1.9 % (2-11); Neutrophils Absolute Auto 10.2 x10*3/uL (2.0-8.3); Neutrophils Percent Auto 88.3 % (45-73); Platelet Count 404 X10*3/uL (160-400); Red Blood Count 3.83 X10*6/uL (4.20-5.50); Red Cell Distribution Width 14.1 % (11.0-16.0); White Blood Count 11.5 X10*3/uL (4.8-10.8)
[2023-02-20 15:36] LABS: Alanine Aminotransferase 46 U/L (0-31); Albumin Level 2.8 g/dL (3.5-5.0); Alkaline Phosphatase 83 U/L (39-117); Anion Gap 10 (12-20); Aspartate Amino Transferase 35 U/L (5-31); Bilirubin Total 0.3 mg/dL (0.0-1.0); Blood Urea Nitrogen 33 mg/dL (9-16); Calcium 8.2 mg/dL (8.4-10.2); Carbon Dioxide 28 mmol/L (22-29); Chloride 106 mmol/L (96-108); Creatinine Clr Calc Pharmacy 64.8; Estimated Glomerular Filt Rate 38; Glucose Random 302 mg/dL (60-115); Potassium 4.5 mmol/L (3.3-5.1); Sodium 139 mmol/L (135-145); Total Protein 6.1 g/dL (6.5-8.0)
--- NOTE | 2023-02-20 17:50 | ED.GENADULT ---
HPI - General Adult General Chief complaint: General Medical Stated complaint: B/L Foot Pain No Injury Time Seen by Provider: 02/20/23 17:37 History of Present Illness HPI narrative: Patient is a 47-year-old female long history of diabetes. 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 Patient has been having on and off pain over the area where she had the amputation. Gets too surgery. Subsequently it has healed completely. There was no redness there is no discharge. There is no trauma to the area. Patient complaining of pain also in a sock like distribution from the ankle down. Patient denies any fever chills. Her pain is been ongoing. She normally goes to [facility]. Patient's pain is most prominent near the 1st MTP. No chest pain or shortness of breath that is new. No diaphoresis. Patient has a history of asthma is still on steroids. Related Data Previous Rx's Medication Instructions Recorded oxycodone 5 mg tablet 5 mg PO Q8H PRN pain #7 tabs 02/20/23 Allergies Allergy/AdvReac Type Severity Reaction Status Date / Time ibuprofen [From MOTRIN] Allergy Unknown STOMACH Unverified 07/22/20 19:12 UPSET morphine [MORPHINE] Allergy Unknown ITCHING Unverified 07/22/20 19:12 tramadol [TRAMADOL] Allergy Unknown HIVES, Unverified 07/22/20 19:12 Review of Systems Review of Systems: Fever no chills no cough no congestion Positive pain to the right foot Yes all other systems are reviewed and are negative PMFSH Past Medical History Attestation statement: The following information was validated with the patient. Social History Social History Advance Directives: No Advance Directives Information Provided: No Physical Exam ED Vital Signs: Vital Signs - 24 hr 02/20/23 14:14 02/20/23 18:00 Temperature 98.7 F 99.0 F Pulse Rate 78 96 Respiratory Rate 16 15 Blood Pressure 152/81 H 161/91 H Pulse Oximetry 99 97 Oxygen Delivery Method Room Air BMI result Body Mass Index 42.4 Appearance: Alert. Oriented X3. No acute distress. Eyes: Pupils equal, round and reactive to light. ENT: Pharynx normal. Neck: Normal inspection. Neck supple. No lymph nodes noted. No crepitus CVS: Normal heart rate and rhythm. Pulses normal. Normal S1 and S2 Respiratory: No respiratory distress. Breath sounds normal. No Wheezing. No rales Abdomen: Soft and nontender. No rigidity. No distention. good BS x4 Skin: Skin warm and dry. Normal skin color. Normal skin turgor. Extremities: No lower extremity edema. Charcot foot noted on the right. Patient is status post great toe and 2nd toe amputation. The wounds are well healed. There is no discharge noted. There is no redness. The skin is completely healed up. There is good sensation over the foot. There is 2+ pulses at dorsalis pedis. Sensation over the foot intact. Patient has tingling sensation and pain over distribution from the ankle down to the toes. With most extreme pain over the 1st MTP and 2nd MTP area Neuro: Oriented X 3. No motor deficit. No sensory deficit. Moving all extermities. No slurred speech Medications Administered Discontinued Medications Generic Name Dose Route Start Last Admin Trade Name Freq PRN Reason Stop Dose Admin Oxycodone HCl 5 mg 02/20/23 17:50 02/20/23 18:00 Oxycodone Hcl Immed Release 5 Mg Tablet PO 02/20/23 17:51 5 mg ONCE ONE Administration Medical Decision Making Medical Decision Making MDM Narrative: Patient's white count 11. Electrolytes showed mild elevation in creatinine. There is no baseline to compare. Baseline patient is on oxycodone. She has ran out of her medication. Will give patient 1 dose of oxycodone and 3 day supply pain medication. She will need follow-up with her foot surgeon. Question a patient has phantom pain and neuropathy secondary to diabetes and toe amputation. Will start patient on Neurontin. There is no evidence for infection. Patient has no redness over the foot. Has good sensation. No discharge. SHe is well appearing. Will discharge home. Patient's x-ray showed no acute fracture. Chest x-ray showed no pneumonia no pneumothorax. Patient's x-ray of the foot showed no acute fracture. Unable to assess osteomyelitis . However patient's history and exam not consistent with osteomyelitis. Patient's narcotic history was reviewed. Just obtained 4 tablets of narcotics from a different provider yesterday. Understood patient has neuropathy and has pain. Patient wanted additional oxycodone. Plain to the patient most likely she has neuropathic pain in needs follow-up on an outpatient basis will give patient additional few tablets of oxycodone for pain. Will have patient follow-up on an outpatient basis. In stable condition. Does not appear to have a vascular issue as patient had good pulses distally. She is in stable condition. Differential Diagnosis Differential Diagnoses: The differential diagnosis associated with the presentation includes Neuropathy, phantom pain, cellulitis, osteomyelitis, ischemic foot Lab Data MDM Lab Attestation statement: I reviewed the patient's lab results. 02/20/23 15:07 02/20/23 15:07 Labs: Lab Results 02/20/23 02/20/23 Range/Units 15:07 15:07 WBC 11.5 H (4.8-10.8) X10*3/uL RBC 3.83 L (4.20-5.50) X10*6/uL Hgb 11.6 L (12.0-16.0) g/dl Hct 35.9 L (37.0-47.0) % MCV 93.7 (80.0-98.0) fL MCH 30.3 (27.0-33.0) pg MCHC 32.3 (31.0-35.0) g/dl RDW 14.1 (11.0-16.0) % Plt Count 404 H (160-400) X10*3/uL MPV 9.6 (9.4-12.3) fL Immature Gran % (Auto) 0.5 H (0.0-0.4) % Neut % (Auto) 88.3 H (45-73) % Lymph % (Auto) 9.0 L (20-40) % [facility] % (Auto) 1.9 L (2-11) % Eos % (Auto) 0.1 (0-4) % Baso % (Auto) 0.2 (0-2) % Lymph # (Auto) 1.0 L (1.2-4.9) X10*3/uL [facility] # (Auto) 0.2 (0.1-1.2) X10*3/uL Eos # (Auto) 0.0 (0.0-0.4) X10*3/uL Baso # (Auto) 0.0 (0.0-0.2) X10*3/uL Abs Immat Gran (auto) 0.06 H (0.00-0.03) X10*3/uL Absolute Neuts (auto) 10.2 H (2.0-8.3) x10*3/uL Absolute Nucleated RBC 0.000 (0.0-0.012) X10*3/uL Nucleated RBC % (auto) 0.0 (0.0-0.2) /100WBC Sodium 139 (135-145) mmol/L Potassium 4.5 (3.3-5.1) mmol/L Chloride 106 (96-108) mmol/L Carbon Dioxide 28 (22-29) mmol/L Anion Gap 10 L (12-20) BUN 33 H (9-16) mg/dL Creatinine 1.49 H (0.5-1.4) mg/dL Estim Creat Clear Calc 64.8 Estimated GFR 38 Random Glucose 302 H (60-115) mg/dL Calcium 8.2 L (8.4-10.2) mg/dL Total Bilirubin 0.3 (0.0-1.0) mg/dL AST 35 H (5-31) U/L ALT 46 H (0-31) U/L Alkaline Phosphatase 83 (39-117) U/L Total Protein 6.1 L (6.5-8.0) g/dL Albumin 2.8 L (3.5-5.0) g/dL Radiology Impression Discussion of test interpretation with radiology: I have reviewed the radiologist's reading. Radiologist Impression: X-ray showed no acute fractures. Chronic Conditions Patient?s care impacted by: Diabetes and Hypertension Discharge Plan Discharge Clinical Impression: Neuropathy Patient Disposition: Home, Self-Care Instructions: Peripheral Neuropathy (ED) Prescriptions: New oxycodone 5 mg tablet 5 mg PO Q8H PRN (Reason: pain) Qty: 7 0RF Rx Instructions: Partial Fill upon patient request. Referrals: Physician,Unknown J [Primary Care Provider] - (Please follow-up with your doctor at [facility].)
--- NOTE | 2023-02-20 17:51 | PC.NURSE ---
pt resting comfortably on stretcher, appears to be in no apparent distress, reporting pain in right foot (partial foot amputation one year ago)
[2023-02-20 18:00] VITALS: BP 161/91; PULSE 96; RESP 15; TEMP 37.2; O2SAT 97
[2023-02-20] MEDS: oxyCODONE HCl Immed Release 5 MG TABLET PO (18:00)
--- NOTE | 2023-02-20 18:06 | PC.NURSE ---
pt requesting sandwhich and soda at this time Pt right foot normal in color, no redness, edema or abnormalities. Pt reporting tender to the touch
== END 2023-02-20 20:25 | disposition home or self-care (01) ==
PROVIDERS: Physician Assistant; Emergency Provider Emergency Medicine Emergency Medical Services
DX: E11.42 Type 2 diabetes mellitus with diabetic polyneuropathy (principal); M79.671 Pain in right foot; I10 Essential (primary) hypertension; E66.9 Obesity, unspecified; Z68.41 Body mass index [BMI] 40.0-44.9, adult; Z89.411 Acquired absence of right great toe; Z89.421 Acquired absence of other right toe(s)
CPT/HCPCS: 36415; 71045; 73630; 80053; 85025; 99283; 99284